=== PATIENT | male | born 1950 | race Caucasian/White ===

== ENCOUNTER 2018-07-06 05:20 | Day surgery (SDC) | payer MEDICARE, SELFPAY ==
[2018-05-08 12:50] VITALS: BMI 25.6
--- NOTE | 2018-07-02 08:57 | EKG12_ITS ---
Test Reason : PREOP Blood Pressure : / mmHG Vent. Rate : 060 BPM Atrial Rate : 060 BPM P-R Int : 248 ms QRS Dur : 076 ms QT Int : 432 ms P-R-T Axes : 074 -16 053 degrees QTc Int : 432 ms Sinus rhythm with marked sinus arrhythmia with 1st degree A-V block Otherwise normal ECG Confirmed by MEHDI BULLARD, YIMI ([id number]), editor farm journal ANDRES DOWNS ([id number]) on 07/06/2018 10:23:13 AM Referred By: Reese Lomas Confirmed By:YIMI HARDING MD
[2018-07-02 08:59] LABS: Hemoglobin 13.4 g/dl (13.0-16.5); Mean Corp Hgb Conc 31.2 g/gl (32-36); Mean Corpuscular Hgb 26.7 pg (27.0-32.0); Mean Corpuscular Volume 85.8 fL (80-94); Mean Platelet Vol. 9.6 fl (6.2-12.0); Platelet Count 244 K/mm3 (150-450); RBC Distribution Width CV 16.9 % (11.6-14.6); RBC Distribution Width SD 53.4 fl (35.1-43.9); Red Blood Count 5.01 M/mm3 (4.6-6.2); White Blood Count 8.3 K/mm3 (4.4-11.0)
[2018-07-02 09:00] LABS: Scan Indicated on CBC? Y/N NO
[2018-07-02 09:38] LABS: Anion Gap 7 (5-15); BUN 10 mg/dL (7-18); BUN/Creat Ratio 11.9 RATIO (10-20); Calcium,Total 9.2 mg/dL (8.5-10.1); Chloride 108 mmol/L (98-107); Creatinine, Serum 0.84 mg/dL (0.70-1.30); EST Glomerular Filtration Rate 96 mL/min (>60); Est Glom Filt Rate - Afr Amer 116 mL/min (>60); Glucose 114 mg/dL (74-106); Potassium 4.2 mmol/L (3.5-5.1); Sodium Level 142 mmol/L (136-145)
--- NOTE | 2018-07-06 | LES_PTH ---
PATIENT: ANGI [place]ACK[place] [facility] [id number] AGE/SX: 68/M ROOM: RE07/06/[address]: Dr. Reese Lomas MD : 1950 BED: DIS: 07/06/2018 SPEC #: [id number] RECD: 07/06/18 13:37 STATUS: GALA RERy #: [id number] ROEL: 07/06/18 00:[address]: Reese Lomas DEPT: SURGICAL PATHOLOGY RECD BY: Murphy Guerrero ENTERED: 07/06/18 13:37 SP TYPE: Lesion OTHR DR: Rosalie Scott, DIRECTOR OF CARDIOPULMONARY SERVICES-Carolann Tissues: Skin of head, NOS Procedures: Surgery Specimen Level IV HEADER OPERATION: Wide excision lesion scalp PRE-OP DIAGNOSIS: Squamous cell skin cancer TISSUE SUBMITTED: Longitudinal ellipse, suture on occipital positon MICROSCOPIC DIAGNOSIS Occipital lesion, wide excision: Inflamed squamous cell carcinoma in situ with verrucous features, completely excised (0.7 cm in greatest horizontal dimension). SJ:rg 07/07/18 COMMENT Please also make reference to previous specimen dated 04/22/18 from [facility], scalp/top of head lesion with diagnosis of squamous cell carcinoma, at least in situ with follicular involvement and verrucous features. Case has been reviewed in consultation with Dr. Chavez who concurs with the above diagnosis. IDC:AM MICROSCOPIC DESCRIPTION Slides are reviewed. GROSS DESCRIPTION Received in fixative is one container labeled with the patient's name and designated occipital lesion. The specimen consists of an ellipse of light danielson excised skin measuring 6 x 2 cm and a depth of excision measuring 0.1 cm. A suture is present along one tip. This tip and corresponding half is inked in black ink. The opposite half is inked in blue ink. The cutaneous surface contains a waxy, danielson lesion measuring 1.5 x 0.7 cm. The specimen is sectioned and totally submitted in six cassettes. Cassette 1 contains the tips, cassettes 2 & 3 contain the lesion and cassettes 4-6, the remainder of the specimen. / AM:aileen 07/06/18 TC:0 CPT: 78295
[2018-07-06 05:48] VITALS: BP 151/78; PULSE 61; RESP 16; TEMP 37.1; O2SAT 99; BMI 26.5
--- NOTE | 2018-07-06 06:25 | HP.PCM_ITS ---
Problem List (1) Squamous cell skin cancer Status: Acute History of Present Illness Date of Admission: 07/06/18 The patient is a 68 year old M who presents for excision of a biopsy-proven squamous cell carcinoma of the apical scalp. I saw him in the office on May 08, 2018. This procedure was scheduled by the patient at the [facility]. Been a long-term cigarette smoker. Is a chronic anxiety disorder. Also in alcohol dependency problem. He states that he has an irregular heartbeat and was on Xarelto for a period of time but then had excessive bleeding. He is managed with low-dose and aspirin. Has no particular complaints. We had recommended scheduling prior to this. Past Medical History Medical History: Medical History (Last Updated 05/08/18 @ 12:48 by Karen Young) Squamous cell skin cancer (Acute) C44.92 Anxiety and depression F41.9, F32.9 CVA (cerebral vascular accident) I63.9 GERD (gastroesophageal reflux disease) K21.9 Osteoarthritis M19.90 Sleep apnea G47.30 Squamous cell cancer of skin of crown C44.42 HTN (hypertension) I10 Allergies codeine Allergy (Verified 06/29/18 13:23) HEART RATE IRREGULAR rivaroxaban [From Xarelto] Adverse Reaction (Verified 07/06/18 05:48) Bleeding Home Medications: Ambulatory Orders Medication Instructions Recorded aspirin 81 mg tablet,delayed 81 mg PO BID 05/08/18 release baclofen 10 mg tablet 10 mg PO TID 05/08/18 gabapentin 100 mg capsule 100 mg PO DAILY 05/08/18 lisinopril 40 mg tablet 40 mg PO DAILY 05/08/18 magnesium oxide 400 mg capsule 400 mg PO QHS cap 05/08/18 meloxicam 7.5 mg tablet 7.5 mg PO DAILY 05/08/18 metoprolol succinate ER 100 mg 100 mg PO DAILY ea 05/08/18 capsule sprinkle, ext. release 24 hr montelukast 10 mg tablet 10 mg PO QPM 05/08/18 multivitamin,lb-tdch-gjshhubx 1 tab PO DAILY 05/08/18 tablet potassium chloride ER 10 mEq 10 meq PO DAILY 05/08/18 capsule,extended release pravastatin 20 mg tablet 20 mg PO QHS 05/08/18 Amlodipine [Norvasc] 5 mg PO DAILY 06/29/18 Ibuprofen 400 mg PO PRN PRN 06/29/18 Omeprazole [Prilosec] 20 mg PO DAILY 06/29/18 Tamsulosin HCl 0.4 mg PO BID 06/29/18 traZODone [Desyrel] 50 mg PO QHS 06/29/18 Surgical History: Surgical History (Last Updated 05/08/18 @ 12:48 by Karen Young) History of cholecystectomy Z90.49 History of colonoscopy Z98.890 History of total bilateral knee replacement Z96.653 Smoking Status: Current every day smoker Tobacco Use: Cigarettes Review of Systems Constitutional: Denies: Anorexia HEENT: Denies: Difficulty Swallowing Cardiovascular: Denies: Chest Pain Respiratory: Denies: Cough Gastrointestinal: Denies: Abdominal Pain Skin: Reports: - - Slowly enlarging apical scalp wound Neurological: Denies: Slurred speech Psychiatric: Reports: Anxiety Endocrine: Denies: Change in Body Habitus VTE Information - Inpt Only VTE Present on Admission: No - Physical Exam General: Alert, Oriented x3, Cooperative, No apparent distress HEENT: - - Exophytic scaly irregular scalp lesion now measuring approximately 1.4 cm in length Oral: Moist Mucosa Lungs: Clear to auscultation Cardiovascular: Regular rate, Regular Rhythm Abdomen: Bowel Sounds Present, Soft, Non Tender Extremities: No Calf Tenderness Lymphatic: No Cervical, Supraclavicular, or Inguinal Adenopathy Psych/Mental Status: Normal Affect Vital Signs Temp Pulse Resp BP Pulse Ox 98.7 F 61 16 151/78 H 99 07/06/18 05:48 07/06/18 05:48 07/06/18 05:48 07/06/18 05:48 07/06/18 05:48 Oxygen Delivery Method Room Air Weight: 195 lb 12.328 oz Body Mass Index (BMI) 26.5 Assessment/Plan All Active Problems (Last Updated 05/08/18 @ 12:48 by Karen Young) Squamous cell skin cancer (Acute) I previously recommended to the patient a generous elliptical excision of this area. He is aware of the technique, benefits, risks and alternatives. We will proceed with monitored anesthesia care. I believe that the patient's today has made this somewhat more challenging. We will attempt to get primary closure. Reese Lomas M.D., F.A.C.S.
--- NOTE | 2018-07-06 07:34 | DCINST_ITS ---
Discharge Diet: Light diet - advance as tolerated - if you have questions about your diet instructions, please talk to you doctor. Discharge Activity: May Not Drive - for 1 week or while taking narcotic pain medicine. May shower in (days): 3 Lifting Restrictions: 10 pounds Call your doctor if your incision/area has: Continuous Slow Oozing, Sudden Increased Bleeding, Increased Pain/ Swelling, Increased Redness, Foul Smelling Discharge Call your doctor if you observe: Fever of 101 or Higher Suture Line Care: Avoid Pulling/Pushing, Avoid Pinching/Bending Additional Dressing/Incision Instructions:: You may apply the antibiotic ointment like Polysporin or Neosporin once daily. You may utilize dry gauze dressing and tape to help protect the incision and change also once daily. Allergies/Adverse Reactions: Allergies codeine Allergy (Verified 06/29/18 13:23) HEART RATE IRREGULAR rivaroxaban [From Xarelto] Adverse Reaction (Verified 07/06/18 05:48) Bleeding Medications to take at Discharge aspirin 81 mg tablet,delayed release 81 mg PO BID 05/08/18 baclofen 10 mg tablet 10 mg PO TID 05/08/18 gabapentin 100 mg capsule 100 mg PO DAILY 05/08/18 lisinopril 40 mg tablet 40 mg PO DAILY 05/08/18 magnesium oxide 400 mg capsule 400 mg PO QHS cap 05/08/18 meloxicam 7.5 mg tablet 7.5 mg PO DAILY 05/08/18 metoprolol succinate ER 100 mg capsule sprinkle, ext. release 24 hr 100 mg PO DAILY ea 05/08/18 montelukast 10 mg tablet 10 mg PO QPM 05/08/18 multivitamin,gd-gnlr-pyjlabdl tablet 1 tab PO DAILY 05/08/18 potassium chloride ER 10 mEq capsule,extended release 10 meq PO DAILY 05/08/18 pravastatin 20 mg tablet 20 mg PO QHS 05/08/18 Amlodipine [Norvasc] 5 mg PO DAILY 06/29/18 Ibuprofen 400 mg PO PRN PRN 06/29/18 Omeprazole [Prilosec] 20 mg PO DAILY 06/29/18 Tamsulosin HCl 0.4 mg PO BID 06/29/18 traZODone [Desyrel] 50 mg PO QHS 06/29/18 Hydrocodone Bitart/Apap 5-325 [[place] 5MG-325MG] 1 tablet PO Q6H PRN PRN 3 Days #8 tablet 07/06/18 The following prescriptions were given: Hydrocodone Bitart/Apap 5-325 [[place] 5MG-325MG] 1 tablet PO Q6H PRN PRN 3 Days #8 tablet PRN Reason: Pain Primary Care Physician: Rosalie Scott, KOBI-C [Primary Care Provider] - Test Results: Test results from this visit will be discussed in further detail at your follow- up appointment, if applicable. Please Follow Up With: Reese Lomas MD - [phone] When: Call to make an appointment to be seen in about 8 days.
[2018-07-06] MEDS: Bupivacaine Mpf 0.5% 30 ML VIAL (07:51)
--- NOTE | 2018-07-06 08:28 | PCM.OPRPT ---
Problem List (1) Squamous cell skin cancer Status: Acute Report of Operation Date of Procedure: 07/06/18 Pre-Operative Diagnosis: Apical scalp squamous cell carcinoma Post-Operative Diagnosis: Same Surgery/Procedure Performed:: Wide elliptical excision apical scalp squamous cell carcinoma Description of Surgical Findings:: Timeout and informed consent was obtained. 68-year-old gentleman was taken to the operating room. He was placed prone on the table. Careful fascial padding was performed. He underwent monitored anesthesia care local anesthetic. His scalp was prepped with Betadine. 1% lidocaine mixed 50-50 with 0.5% Marcaine was used as a local anesthetic. Total 15 cc was used. Local was instilled. The lesion measured approximately 1 x 0.8 cm for the scaly exophytic part. There was some mild erythema extending circumferentially from there. A vertical longitudinal ellipse measuring 6.3 x 2 cm was created to completely excise this area. Sharp dissection was carried down to the galea. Flaps were raised using electrocautery and blunt dissection. A suture was placed in the occipital portion of the longitudinal ellipse. The wound was closed with interrupted 3-0 Vicryl subdermal stitches and simple and mattress sutures of 3-0 nylon. Telfa fluffs and tape dressings applied. Sponge and instrument and needle counts were reported the surgeon to be correct. Blood loss proximal 100 cc. He tolerated the procedure well and was taken to the recovery area in satisfactory condition without apparent complication. Final pathology is pending. Specimen includes skin lesion. No drains. Blood loss 100 cc. Reese Lomas M.D., F.A.C.S. Type of Anesthesia:: Local MAC Anesthesiologist: Romeo Villa
[2018-07-06 08:35] VITALS: BP 124/99; BP 151/78; PULSE 77; RESP 16; TEMP 36.4; O2SAT 96
[2018-07-06 08:40] VITALS: BP 136/79; BP 151/78; PULSE 70; RESP 16; O2SAT 96
[2018-07-06 08:45] VITALS: BP 121/95; BP 151/78; PULSE 75; RESP 16; O2SAT 97
[2018-07-06 08:50] VITALS: BP 134/94; BP 151/78; PULSE 70; RESP 16; TEMP 36.6; O2SAT 95
[2018-07-06 10:06] VITALS: BP 124/92; BP 151/78; PULSE 72; RESP 16; TEMP 36.9; O2SAT 94
== END 2018-07-06 10:09 | disposition home or self-care (01) ==
LOC: SDC 05:21 → AC 05:22
PROVIDERS: Family Provider Nurse Practitioner Family; PCP Nurse Practitioner Family; Referring Provider Surgery; Visit Provider Surgery
PROC: (CPT 11622; principal; 2018-07-06 07:05)
DX: C44.42 Squamous cell carcinoma of skin of scalp and neck (principal); K21.9 Gastro-esophageal reflux disease without esophagitis; E78.00 Pure hypercholesterolemia, unspecified; I49.9 Cardiac arrhythmia, unspecified; I10 Essential (primary) hypertension; F32.9 Major depressive disorder, single episode, unspecified; F41.9 Anxiety disorder, unspecified; M19.90 Unspecified osteoarthritis, unspecified site; F10.20 Alcohol dependence, uncomplicated; F17.210 Nicotine dependence, cigarettes, uncomplicated; Z79.82 Long term (current) use of aspirin; Z79.899 Other long term (current) drug therapy; Z86.73 Personal history of transient ischemic attack (TIA), and cerebral infarction without residual deficits
CPT/HCPCS: 00300; 11622; 36415; 80048; 85027; 88305; 93005; J7120

== ENCOUNTER 2020-03-29 05:49 | Inpatient (IN) | payer MEDICARE, SELFPAY ==
--- NOTE | 2020-03-20 10:58 | EKG12_ITS ---
Test Reason : PRE OP Blood Pressure : / mmHG Vent. Rate : 054 BPM Atrial Rate : 326 BPM P-R Int : 000 ms QRS Dur : 084 ms QT Int : 460 ms P-R-T Axes : 000 -47 073 degrees QTc Int : 436 ms Atrial fibrillation Left axis deviation Abnormal ECG Confirmed by MEHDI BULLARD, YIMI ([id number]), newspaper copy editor EULALIA JACOME ([id number]) on 03/21/2020 10:18:43 AM Referred By: Bo Dixon Confirmed By:YIMI HARDING MD
[2020-03-20 11:47] LABS: Hemoglobin 13.8 g/dL (13.0-16.5); Mean Corp Hgb Conc 31.4 g/dL (32-36); Mean Corpuscular Hgb 28.8 pg (27.0-32.0); Mean Corpuscular Volume 91.7 fL (80-94); Mean Platelet Vol. 9.4 fl (6.2-12.0); Platelet Count 254 K/mm3 (150-450); RBC Distribution Width CV 16.6 % (11.6-14.6); RBC Distribution Width SD 56.3 fl (35.1-43.9); White Blood Count 7.9 K/mm3 (4.4-11.0)
[2020-03-20 11:53] LABS: International Normalized Ratio 1.1; Prothrombin Time (Protime)PT. 13.2 SECONDS (11.7-14.9)
[2020-03-20 11:54] LABS: Partial Thromboplast Time 28.1 Seconds (24.1-36.2)
[2020-03-20 12:07] LABS: AST(SGOT) 19 U/L (15-37); Alanine Aminotransfer ALT/SGPT 24 U/L (16-61); Albumin, Serum 3.3 g/dL (3.2-5.0); Alkaline Phosphatase 107 U/L (45-117); Anion Gap 7 (5-15); BUN 11 mg/dL (7-18); BUN/Creat Ratio 14.7 RATIO (10-20); Bilirubin, Direct 0.26 mg/dL (0.00-0.30); Chloride 106 mmol/L (98-107); Creatinine, Serum 0.75 mg/dL (0.70-1.30); EST Glomerular Filtration Rate 110 mL/min (>60); Est Glom Filt Rate - Afr Amer 133 mL/min (>60); Globulin 3.9 g/dL (2.2-4.2); Glucose 92 mg/dL (74-106); Potassium 3.8 mmol/L (3.5-5.1); Protein, Total 7.2 g/dL (6.4-8.2); Sodium Level 141 mmol/L (136-145)
[2020-03-29] VITALS (14 sets, daily range): BP systolic 109–159; BP diastolic 69–100; PULSE 55–98; RESP 16; TEMP 36.4–37.1; O2SAT 92–99; BMI 25.0; BMI 25.7
[2020-03-29] MEDS: Lactated Ringers 1,000 ML 100 ML IV ×4 (06:37→18:16)
--- NOTE | 2020-03-29 07:14 | EKG12_ITS ---
Test Reason : Blood Pressure : / mmHG Vent. Rate : 060 BPM Atrial Rate : 312 BPM P-R Int : 000 ms QRS Dur : 082 ms QT Int : 438 ms P-R-T Axes : 000 -37 040 degrees QTc Int : 438 ms Atrial fibrillation Left axis deviation Poor R- wave progression Abnormal ECG Confirmed by CHARLIE BULLARD, RADHA ([id number]), telehealth nurse educator ADAN CARLSON ([id number]) on 03/30/2020 11:06:16 AM Referred By: Bo Dixon Confirmed By:RADHA GUERRA MD
--- NOTE | 2020-03-29 07:30 | TISS_PTH ---
PATIENT: ANGI JACKSON LOC: [facility] U#:[id number] AGE/SX: 70/M ROOM: [facility] RE03/29/[address]: Dr. Bo Dixon MD : 1950 BED: 1 DIS: 03/30/2020 SPEC #: [id number] RECD: 03/30/20 07:34 STATUS: GALA CHARI #: [id number] ROEL: 03/29/20 07:[address]: Bo Dixon DEPT: SURGICAL PATHOLOGY RECD BY: Sowmya Rausch ENTERED: 03/30/20 09:02 SP TYPE: Tissue Bx RIC DR: PRAKASH Schrader Tissues: TISSUE SURGICALLY REMOVED Procedures: Surgery Specimen Level IV HEADER OPERATION: Lap robotic bladder diverticulectomy PRE-OP DIAGNOSIS: Bladder diverticulum TISSUE SUBMITTED: Bladder diverticulum MICROSCOPIC DIAGNOSIS Bladder diverticulum, diverticulectomy: Consistent with bladder diverticulum with focal ulceration, acute and chronic inflammation and reactive epithelial changes. ORLIN:aileen 03/31/20 MICROSCOPIC DESCRIPTION Slides are reviewed. GROSS DESCRIPTION Received in fixative is one container labeled with the patient's name and designated bladder diverticulum. The specimen consists of an irregular fragment of danielson mucosa with attached submucosal tissue and fat measuring 10 x 4 x 2 cm. No mucosal mass lesions are identified. Construction Management Assistant sections are submitted in three cassettes. / AM:aileen 03/30/20 TC:5 CPT: 16457
--- NOTE | 2020-03-29 09:04 | CON.PCM_ITS ---
Reason for Consult Date of Consultation: 03/29/20 Reason for Consultation: Preop cardiac evaluation. History of Present Illness: The patient is a 70 year old M with no previous cardiac history with a history of bladder diverticulum who presented downstairs for laparoscopic bladder dontae michelle. They had an EKG done this morning and he was noted to be in atrial fibrillation with a slow ventricular response rate. Patient appears to have a known hypertensive. Has been on an hypertensive medication. He has had no shortness of breath no paroxysmal nocturnal dyspnea or pedal edema. He has had occasional chest discomfort which does not appear to be exertionally related. He has had no other cardiac symptomatology. Cardiology was called to see him because he had atrial fibrillation. [] Past Medical History Allergies/Adverse Reactions: Allergies codeine Allergy (Verified 03/20/20 08:19) HEART RATE IRREGULAR rivaroxaban [From Xarelto] Adverse Reaction (Verified 03/20/20 08:19) Bleeding Home Medications: Ambulatory Orders Medication Instructions Recorded aspirin 81 mg tablet,delayed 81 mg PO DAILY 05/08/18 release baclofen 10 mg tablet 10 mg PO .QAM 05/08/18 gabapentin 100 mg capsule 300 mg PO BID 05/08/18 lisinopril 40 mg tablet 40 mg PO DAILY 05/08/18 magnesium oxide 400 mg PO QHS cap 05/08/18 meloxicam 7.5 mg tablet 7.5 mg PO DAILY 05/08/18 metoprolol succinate 100 mg 100 mg PO BID ea 05/08/18 capsule sprinkle, ext. release 24 hr montelukast 10 mg tablet 10 mg PO QPM 05/08/18 multivitamin,rv-bcdf-ektuzuap 1 tab PO DAILY 05/08/18 potassium chloride 10 mEq 10 meq PO DAILY 05/08/18 capsule,extended release pravastatin 20 mg tablet 20 mg PO QHS 05/08/18 Amlodipine [Norvasc] 5 mg PO DAILY 06/29/18 Ibuprofen 400 mg PO PRN PRN 06/29/18 Omeprazole [Prilosec] 20 mg PO DAILY 06/29/18 Tamsulosin HCl 0.4 mg PO BID 06/29/18 traZODone [Desyrel] 100 mg PO QHS 06/29/18 Baclofen 20 mg PO QHS 02/29/20 Duloxetine HCl 30 mg PO DAILY 02/29/20 Finasteride [Proscar] 5 mg PO DAILY 02/29/20 Smoking Status: Current every day smoker Tobacco Use: Cigarettes Alcohol: None Drugs: None Review of Systems - Review of Systems General: Denies: Fever, Night Sweats, Fatigue HEENT: Denies: Vision Change Cardiovascular: Reports: Chest Tightness. Denies: Chest Discomfort, Shortness of Breath, Orthopnea, PND, Peripheral Edema, Palpitations, Lightheadedness, Dizziness, Near Syncope, Syncope Respiratory: Denies: Cough, Sputum Production, Hemoptysis Gastrointestinal: Denies: Hematemesis, Hematochezia, Melena Genitourinary: Denies: Dysuria, Hematuria Muscoloskeletal: Denies: Myalgias Skin: Denies: Rash Neurological: Denies: Dizziness Psychiatric: Denies: Anxiety Endocrine: Denies: Unexplained Weight Loss Subjectve: Pleasant gentleman in no distress at this time Objective: Vital Signs Temp Pulse Resp BP Pulse Ox 98.4 F 55 L 16 115/79 97 03/29/20 06:24 03/29/20 06:24 03/29/20 06:24 03/29/20 06:24 03/29/20 06:24 Oxygen Delivery Method Room Air Weight: 182 lb 1.629 oz Body Mass Index (BMI) 25.0 General: Awake, Alert, Oriented x 3 HEENT: PERRL, EOMI, Sclera Non Icteric Neck: Supple, Good ROM, No Lymph Node Enlargement Lungs: Clear to auscultation Cardiovascular: Irregular Rhythm, Normal S1, Normal S2, No Murmurs, No Rubs, No Gallops Vascular: No Carotid Bruits, Normal Femoral Pulses, Normal Radial Pulses, Normal Dorsalis Pedal Pulse, Normal Posterior Tibial Pulses Abdomen: Bowel Sounds Present, Soft, Non Tender, No HSM, No Organomegaly Extremities: No Cyanosis, No Clubbing, No edema Musculoskeletal: No Erythema Skin: No Rashes Neurological: No Focal Motor or Sensory Deficit Rhythm: EKG: Atrial fibrillation with a controlled ventricular response rate of 66 bpm ECHO: Stress Test: Cardiac Cath: PCI: CT Surgery: Holter monitor: EPS: PPM: CXR: Chest CT Scan: Assessment/Plan 1. Atrial fibrillation * The duration is unclear at this particular time. He has not been anticoagulated. It appears that his risk may be secondary to the hypotension. At this particular time his rate is controlled because he is on a high dose of the beta-zuly. * I would recommend that we obtain an echocardiogram this morning to assess his left ventricular function. * I do not think that this should be a contraindication to him undergoing the above intended surgery which is laparoscopic with the bladder. * I have discussed this extensively with anesthesiologist and they understand and agree to proceed. His EKG is not with any significant abnormalities. * 2. Hypertension * His blood pressure appears to be under good control at this particular time and I would not recommend that we make any changes. * * Thank you for allowing me to participate in the care of your patient. Please don't hesitate to call if any issues arise.
--- NOTE | 2020-03-29 09:16 | ECHOCS_ITS ---
Reason For Study: New Afib Procedure This was a 2D Doppler, Color Flow transthoracic echocardiogram. The study was technically difficult. Contrast injection was performed. Exam performed in OR. Left Ventricle Normal LV size. Left ventricular systolic function is normal. The estimated ejection fraction is 60 %. No regional wall motion abnormalities noted. Right Ventricle Normal RV size. Normal systolic function. Atria Normal left atrium. Normal right atrium. Mitral Valve Normal mitral valve. Tricuspid Valve Normal tricuspid valve. Mild (1+) tricuspid valve insufficiency. Pulmonary artery systolic pressure is 36 mmHg. Aortic Valve The aortic valve is not well visualized. Pulmonic Valve The pulmonic valve is not well visualized. Great Vessels Normal aortic root. The pulmonary artery is normal size. Pericardium/Pleural No pericardial effusion. Medication Diluted definity 3ml given slow IV push to enhance endocardial definition. MMode/2D Measurements & Calculations LVIDd: 5.0 cm IVSd: 1.5 cm LA dimension: 3.9 cm LVIDs: 2.8 cm LVPWd: 1.3 cm FS: 44.4 % LAV(MOD-bp): 75.3 ml LA A4 area: 23.3 cm2 RA A4 area: 19.5 cm2 LAV(MOD-bp) Indexed: 37.2 ml/m2 LAV(MOD-sp2): 71.6 ml LAV(MOD-sp4): 79.6 ml Time Measurements MV dec time: 0.22 sec Doppler Measurements & Calculations MV E max raj: 103.6 cm/sec MV P1/2t max raj: 96.7 cm/sec Ao V2 max: 124.2 cm/sec MV A max raj: 48.2 cm/sec MV P1/2t: 66.4 msec Ao max P.2 mmHg MV E/A: 2.1 MV dec slope: 426.9 cm/sec2 MVA(P1/2t): 3.3 cm2 LV V1 max: 98.3 cm/sec PA V2 max: 87.6 cm/sec TR max raj: 286.5 cm/sec LV V1 max P.9 mmHg TR max P.8 mmHg Interpretation Summary Normal LV size. Left ventricular systolic function is normal. The estimated ejection fraction is 60 %. Pulmonary artery systolic pressure is 36 mmHg. Contrast injection was performed. Ordering Physician: Fco Aguilera Referring Physician: Rosalie Scott Performed By: Keo Red RCS
--- NOTE | 2020-03-29 11:50 | PCM.HP.STD ---
Problem List (1) Bladder diverticulum Status: Acute History of Present Illness Date of Admission: 03/29/20 Chief Complaint: Large bladder diverticulum The patient is a 70 year old male who has a very large bladder diverticulum have difficulty emptying frequent urination very minimal obstruction on cystoscopy but is found to have a large bladder diverticulum we can proceed with laparoscopic excision of a bladder diverticulum. Past Medical History Medical History: Medical History (Last Reviewed 07/14/18 @ 14:24 by Karen Young) Squamous cell skin cancer (Acute) C44.92 Anxiety and depression F41.9, F32.9 CVA (cerebral vascular accident) I63.9 GERD (gastroesophageal reflux disease) K21.9 Osteoarthritis M19.90 Sleep apnea G47.30 Squamous cell cancer of skin of crown C44.42 HTN (hypertension) I10 Allergies codeine Allergy (Verified 03/20/20 08:19) HEART RATE IRREGULAR rivaroxaban [From Xarelto] Adverse Reaction (Verified 03/20/20 08:19) Bleeding Home Medications: Ambulatory Orders Medication Instructions Recorded aspirin 81 mg tablet,delayed 81 mg PO DAILY 05/08/18 release baclofen 10 mg tablet 10 mg PO .QAM 05/08/18 gabapentin 100 mg capsule 300 mg PO BID 05/08/18 lisinopril 40 mg tablet 40 mg PO DAILY 05/08/18 magnesium oxide 400 mg PO QHS cap 05/08/18 meloxicam 7.5 mg tablet 7.5 mg PO DAILY 05/08/18 metoprolol succinate 100 mg 100 mg PO BID ea 05/08/18 capsule sprinkle, ext. release 24 hr montelukast 10 mg tablet 10 mg PO QPM 05/08/18 multivitamin,xv-flnn-zypppbnd 1 tab PO DAILY 05/08/18 potassium chloride 10 mEq 10 meq PO DAILY 05/08/18 capsule,extended release pravastatin 20 mg tablet 20 mg PO QHS 05/08/18 Amlodipine [Norvasc] 5 mg PO DAILY 06/29/18 Ibuprofen 400 mg PO PRN PRN 06/29/18 Omeprazole [Prilosec] 20 mg PO DAILY 06/29/18 Tamsulosin HCl 0.4 mg PO BID 06/29/18 traZODone [Desyrel] 100 mg PO QHS 06/29/18 Baclofen 20 mg PO QHS 02/29/20 Duloxetine HCl 30 mg PO DAILY 02/29/20 Finasteride [Proscar] 5 mg PO DAILY 02/29/20 Surgical History: Surgical History (Last Reviewed 07/14/18 @ 14:24 by Karen Young) History of cholecystectomy Z90.49 History of colonoscopy Z98.890 History of total bilateral knee replacement Z96.653 Surgical History: no surgical history Smoking Status: Current every day smoker Tobacco Use: Cigarettes Alcohol: None Drugs: None Review of Systems Constitutional: Denies: Chills, Fever, Weight Change HEENT: Denies: Head Aches, Sinus Congestion, Sinus Drainage Cardiovascular: Denies: Chest Pain, Palpitations Respiratory: Denies: Cough, Shortness of breath at rest, Sputum production Gastrointestinal: Denies: Abdominal Pain, Nausea, Vomiting Genitourinary: Denies: Dysuria Musculoskeletal: Denies: Joint Pain, Joint Tenderness Skin: Denies: Rash, Wounds Neurological: Denies: Numbness, Tingling, Focal weakness Psychiatric: Denies: Anxiety, Depression, Homicidal Ideations, Suicidal Ideations Hematologic/ Lymphatic: Denies: Easy Bruising, Easy Bleeding VTE Information - Inpt Only VTE Present on Admission: No - Physical Exam Vitals/I&O's: Vital Signs Temp Pulse Resp BP Pulse Ox 98.4 F 55 L 16 115/79 97 03/29/20 06:24 03/29/20 06:24 03/29/20 06:24 03/29/20 06:24 03/29/20 06:24 Oxygen Delivery Method Room Air Weight: 82.6 kg Body Mass Index (BMI) 25.0 General: Alert, Oriented x3, Cooperative HEENT: Atraumatic, PERRLA, EOMI, Normocephalic Neck: Supple, No JVD, Negative Carotid Bruits Lungs: Clear to auscultation, Normal air movement Cardiovascular: Regular rate, No murmurs Abdomen: Bowel Sounds Present, Soft, Non Tender Extremities: No edema, Capillary Refill Less than 3 Seconds Skin: No rashes, No breakdown Musculoskeletal: No Tenderness to Palpation of Joints or Extremities Neurological: Cranial nerves II-XII grossly intact Psych/Mental Status: Normal Affect, Appropriate Current Medications Lactated Ringer's () 1,000 mls @ 100 mls/hr IV .Q10H J CARLOS Last Admin: 03/29/20 06:37 Dose: 100 mls/hr Documented by: Lactated Ringer's () 1,000 mls @ 100 mls/hr IV .Q10H J CARLOS Last Admin: 03/29/20 06:38 Dose: 100 mls/hr Documented by: Assessment/Plan All Active Problems (Last Reviewed 07/14/18 @ 14:24 by Karen Young) Bladder diverticulum (Acute) Squamous cell skin cancer (Acute) Late this morning plan to proceed with laparoscopic excision of bladder diverticulum. Today he also was seen by cardiology clearance
--- NOTE | 2020-03-29 12:56 | DCINST_ITS ---
Discharge Diet: Light diet - advance as tolerated, Soft diet Discharge Activity: May not drive while taking narcotic pain medications. Call your doctor if your incision/area has: Continuous Slow Oozing, Sudden Increased Bleeding, Increased Pain/ Swelling, Increased Redness, Foul Smelling Discharge, Swelling at the incision site Call your doctor if you observe: Fever of 101 or Higher Suture Line Care: Avoid Pulling/Pushing, Avoid Pinching/Bending Catheter: Bentley to leg bag, Bentley to large bag Drain: [place] Allergies/Adverse Reactions: Allergies codeine Allergy (Verified 03/20/20 08:19) HEART RATE IRREGULAR rivaroxaban [From Xarelto] Adverse Reaction (Verified 03/20/20 08:19) Bleeding Medications to take at Discharge aspirin 81 mg tablet,delayed release 81 mg PO DAILY 05/08/18 baclofen 10 mg tablet 10 mg PO .QAM 05/08/18 gabapentin 100 mg capsule 300 mg PO BID 05/08/18 lisinopril 40 mg tablet 40 mg PO DAILY 05/08/18 magnesium oxide 400 mg PO QHS cap 05/08/18 meloxicam 7.5 mg tablet 7.5 mg PO DAILY 05/08/18 metoprolol succinate 100 mg capsule sprinkle, ext. release 24 hr 100 mg PO BID ea 05/08/18 montelukast 10 mg tablet 10 mg PO QPM 05/08/18 multivitamin,ay-jhbf-jflmrdpl 1 tab PO DAILY 05/08/18 potassium chloride 10 mEq capsule,extended release 10 meq PO DAILY 05/08/18 pravastatin 20 mg tablet 20 mg PO QHS 05/08/18 Amlodipine [Norvasc] 5 mg PO DAILY 06/29/18 Ibuprofen 400 mg PO PRN PRN 06/29/18 Omeprazole [Prilosec] 20 mg PO DAILY 06/29/18 Tamsulosin HCl 0.4 mg PO BID 06/29/18 traZODone [Desyrel] 100 mg PO QHS 06/29/18 Baclofen 20 mg PO QHS 02/29/20 Duloxetine HCl 30 mg PO DAILY 02/29/20 Finasteride [Proscar] 5 mg PO DAILY 02/29/20 Ciprofloxacin [Cipro] 500 mg PO BID #14 tab 03/29/20 Hydrocodone/Acetaminophen [Par[place]ise 5-325 Tablet] 1 ea PO Q4H PRN PRN 7 Days #20 tab 03/29/20 The following prescriptions were given: Ciprofloxacin [Cipro] 500 mg PO BID #14 tab Transmission Status: Received by [address] Hydrocodone/Acetaminophen [[place]ise 5-325 Tablet] 1 ea PO Q4H PRN PRN 7 Days #20 tab PRN Reason: Pain 1-10 Or Fever Transmission Status: Received by [address] Primary Care Physician: Rosalie Scott BOBBIN DOFFER, BOBBIN DOFFER-C [Primary Care Provider] - Test Results: Test results from this visit will be discussed in further detail at your follow- up appointment, if applicable. Please Follow Up With: Bo Dixon MD - [phone] When: please call to make an appointment.- 10 days Proposed Discharge Date: 03/30/20
[2020-03-29] MEDS: Cefazolin 2 GM in 0.9% Normal Saline 100 ML IV (13:01)
[2020-03-29] MEDS: Bupivacaine Mpf 0.5% 30 ML VIAL (13:25)
--- NOTE | 2020-03-29 14:31 | OP.PCM_ITS ---
Problem List (1) Bladder diverticulum Status: Acute Report of Operation Date of Procedure: 03/29/20 Pre-Operative Diagnosis: Large bladder diverticulum Post-Operative Diagnosis: The same Surgery/Procedure Performed:: Laparoscopic robotic assisted excision of bladder diverticulum Description of Surgical Findings:: 70-year-old male was found to have a mildly enlarged prostate is on medical therapy with Flomax and Proscar no significant obstruction seen on cystoscopy but he is found to have a large bladder diverticulum in the back of the bladder I think this is preventing from proper emptying he is having double voiding also has been having infections so because of this working to proceed with laparoscopic removal of his bladder diverticulum certainly in the future if necessary could always work on the prostate with a TURP etc. but for now is proceed with a removal of his bladder diverticulum 70-year-old male was taken back to the operating room after smooth induction of general anesthesia he was placed supine on the table the penis and testicles were prepped and draped in usual sterile fashion. Made an incision below the umbilicus. Advanced the Veress needle into the peritoneal cavity inflated the peritoneal cavity with CO2 gas. I then placed the camera trocar right arm trocar left arm trocar and a suction trocar. Started out the dissection in the midline of the bladder. Bentley catheter was placed into the bladder and we filled the bladder up he could see the diverticulum expanding right in front of us. The diverticulum was in the posterior aspect of the bladder. I then bivalved the diverticulum. And by doing this I found the extent of the diverticulum to the bladder until I found the diverticular neck and then I dissected the diverticulum off the bladder. After excising the bladder reticulum off the bladder I followed the edges of diverticulum all the way to the diverticular neck and then excised across the diverticulum to remove the diverticulum. We then used the Endo Catch bag through the robotic port to place the diverticulum into the robotic port. I then transferred the first suture through the robotic port and then sutured the diverticular closed with 3-0 Vicryl. We then transferred the 2-0 Vicryl through the robotic port and sutured the second layer also closing the peritoneum over the bladder. After this was accomplished and removed both the sutures through the robotic port. The robot was then undocked we did fill the bladder up with saline with 150 cc of saline and there was no leakage from the closure. There was no significant bleeding from the catheter urine was fairly clear. We then had to open up the umbilicus and we extracted the diverticulum in the in the Endo Catch bag through the umbilicus and then we closed the umbilicus with 0 Vicryl suture [id number] fashion. I then removed the diverticulum through the umbilicus and then the skin skin sutures were closed with subcuticular 4-0 Monocryl patient's a nesthetic was reversed catheter was left in place taken back to PACU in good condition. Type of Anesthesia:: General - Admit VTE Documentation VTE Present on Admission: No VTE Mechan Device Prophylaxis: SCD's
[2020-03-29] MEDS: Morphine 2 MG/ML Syringe IV ×2 (18:16→20:49)
[2020-03-29] MEDS: Docusate Sodium 100 MG Capsule PO (20:51)
[2020-03-29] MEDS: Magnesium Chloride 64 MG Delay Rel.Tablet 128 MG PO (20:51)
[2020-03-29] MEDS: Montelukast 10 MG Tablet PO (20:51)
[2020-03-29] MEDS: traZODone 50 MG Tablet 100 MG PO (20:51)
[2020-03-29] MEDS: Gabapentin 300 MG Capsule PO (20:51)
[2020-03-29] MEDS: Baclofen 10 MG Tablet 20 MG PO (20:52)
[2020-03-29] MEDS: Tamsulosin HCl 0.4 MG Capsule PO (20:52)
[2020-03-29] MEDS: Pravastatin 20 MG Tablet PO (20:53)
[2020-03-29] MEDS: Metoprolol(XL)Succ 100 MG Tablet PO (20:53)
[2020-03-30] MEDS: Acetaminophen 325 MG Tablet PO (00:20)
[2020-03-30] MEDS: oxyCODONE 5 MG Tablet PO (00:20)
[2020-03-30] MEDS: Lactated Ringers 1,000 ML 100 ML IV (03:33)
[2020-03-30] MEDS: Ibuprofen 600 MG Tablet PO (03:41)
[2020-03-30 03:44] VITALS: BP 146/79; PULSE 74; RESP 16; TEMP 36.7; O2SAT 97
[2020-03-30] MEDS: Morphine 2 MG/ML Syringe IV ×3 (04:31→08:41)
[2020-03-30] MEDS: DULoxetine Hcl 30 MG Capsule PO (07:47)
[2020-03-30] MEDS: Docusate Sodium 100 MG Capsule PO (07:47)
[2020-03-30] MEDS: Finasteride 5 MG Tablet PO (07:48)
[2020-03-30] MEDS: Gabapentin 300 MG Capsule PO (07:48)
[2020-03-30] MEDS: amLODIPine 5 MG Tablet PO (07:48)
[2020-03-30] MEDS: Meloxicam 7.5 MG Tablet PO (07:48)
[2020-03-30] MEDS: Baclofen 10 MG Tablet PO (07:48)
[2020-03-30] MEDS: Tamsulosin HCl 0.4 MG Capsule PO (07:48)
[2020-03-30 07:49] VITALS: PULSE 80
[2020-03-30] MEDS: Metoprolol(XL)Succ 100 MG Tablet PO (07:49)
[2020-03-30] MEDS: Pantoprazole Sodium 20 MG Tablet PO (07:49)
[2020-03-30] MEDS: Lisinopril 40 MG Tablet PO (07:49)
[2020-03-30 07:55] VITALS: BP 139/83; PULSE 74; RESP 16; TEMP 36.8; O2SAT 97
[2020-03-30] MEDS: 0.9% Saline Lock 10 ML Syringe IV (08:41)
--- NOTE | 2020-03-30 11:10 | CASEMGMT ---
DANIELE ZIEGLER attempted to complete Face to Face assessment at this time. Patient was discharged prior to assessment being completed. Patient to follow-up with urology in 1 week.
== END 2020-03-30 11:00 | disposition home or self-care (01) | DRG 655 ==
LOC: ACINP 05:49 → MS3 13:05
PROVIDERS: Anesthesiology; Admitting Provider Urology; PCP Nurse Practitioner Family; Referring Provider Urology; Visit Provider Urology
PROC: 0VT04ZZ Resection of Prostate, Percutaneous Endoscopic Approach (ICD-10-PCS; CPT 55866; principal; 2020-03-29 07:10)
DX: N32.3 Diverticulum of bladder (principal); R07.89 Other chest pain; F17.210 Nicotine dependence, cigarettes, uncomplicated; Z20.828 Contact with and (suspected) exposure to other viral communicable diseases; I48.91 Unspecified atrial fibrillation; Z79.899 Other long term (current) drug therapy; Z79.82 Long term (current) use of aspirin; F41.9 Anxiety disorder, unspecified; I10 Essential (primary) hypertension; K21.9 Gastro-esophageal reflux disease without esophagitis; G47.30 Sleep apnea, unspecified; F32.9 Major depressive disorder, single episode, unspecified
CPT/HCPCS: 36415; 80048; 80076; 85027; 85610; 85730; 87635; 88305; 93005; 93306; 99406; C9803; J7120; Q9957; A4216; C8929; J2405; U0003

== ENCOUNTER → 2020-06-12 06:21 | Outpatient (CLI) | payer MEDICARE, SELFPAY ==
[2020-06-02 08:10] VITALS: BMI 26.5
--- NOTE | 2020-06-12 09:14 | STRESSREP_ITS ---
Stress Test Report Pharmacologic myocardial perfusion stress test. 70-year-old man with a history of persistent atrial fibrillation. Stress protocol: Resting EKG demonstrates atrial fibrillation with a controlled ventricular response rate of 51 bpm resting blood pressure is 120/80 mmHg occasional premature ventricular complexes noted. 0.4 mg of regadenoson was infused per usual protocol followed by rapid intravenous saline flush injection continuous EKG monitoring was performed. The maximum heart rate attained was 67 bpm which was 44% of maximum predicted heart rate the maximum workload was 1 metabolic equivalent. The patient maintained atrial fibrillation throughout the recording. Nonspecific ST-T wave changes were noted. The resting blood p ressure was 120/80 mmHg with a final blood pressure 102/70 mmHg. Myocardial perfusion protocol. 11.2 mCi of technetium 99m sestamibi was injected at rest. 0.4 mg of regadenoson was infused per usual protocol. At peak infusion 33.9 mCi of technetium 99m sestamibi was injected stress images were obtained stress and rest images were reconstructed and compared in the short axis vertical long horizontal long axis. Gated images were also obtained. Perfusion SPECT analysis: Review of the stress images demonstrate normal uptake of tracer noted in all areas of the myocardium except for the inferior apical wall with reduced perfusion. There is improvement in perfusion on the resting images suggesting inferoapical ischemia. The rest of the sears appear to be normally perfused. Gated SPECT analysis: The gated ejection fraction is noted to be 70%. Conclusion: Pharmacologic myocardial perfusion stress test with evidence of inferoapical ischemia. Preserved ejection fraction.
== END ==
LOC: CVS 06:24
PROVIDERS: PCP Nurse Practitioner Family; Referring Provider Internal Medicine Cardiovascular Disease; Visit Provider Internal Medicine Cardiovascular Disease
DX: I48.11 Longstanding persistent atrial fibrillation (principal); R06.00 Dyspnea, unspecified
CPT/HCPCS: 78452; 93017; 93225; 93226; A9500; A4216; J2785

== ENCOUNTER 2020-06-20 07:02 | Day surgery (SDC) | payer MEDICARE, SELFPAY ==
[2020-06-02 08:10] VITALS: BMI 26.5
[2020-06-19 08:57] VITALS: BMI 26.5
--- NOTE | 2020-06-20 06:32 | HP_ITS ---
HPI HPI History of Present Illness Details: [place] 70-year-old man who was seen by me when he had laparoscopic bladder surgery and was noted to have atrial fibrillation with a slow ventricular response rate. He does have a history of known hypertension. We did make adjustments to his medications at that time and he had an echocardiogram performed which demonstrated preserved ejection fraction of 60% and normal biatrial sizes. He has done well since then denying any chest pain or shortness of breath or paroxysmal nocturnal dyspnea or pedal edema he has had no neck arm or jaw discomfort to suggest angina. Is been compliant with his medications. He is asymptomatic as far as the atrial fibrillation is concerned. You do remember that he has had a previous history of a transient ischemic attack as well as a history of hypertension. His physical exam here demonstrates clear lung vaca irregular rate and rhythm and no pedal edema. Intake Vital Signs 06/02/20 Height 5 ft 11.5 in 06/02/20 Weight: 193 lb 06/02/20 BMI 26.5 06/02/20 BP 130/72 H 06/02/20 Respiration 16 06/02/20 Pulse 60 06/02/20 Pulse Oximetry (%) 98 Intake Visit Reasons: d/c MS3 03/29 (NEW to [facility]) Allergies codeine Allergy (Verified 06/02/20 08:10) HEART RATE IRREGULAR rivaroxaban [From Xarelto] Adverse Reaction (Verified 06/02/20 08:10) Bleeding Medications baclofen 10 mg tablet 10 mg PO .QAM 05/08/18 [History Confirmed 06/02/20] lisinopril 40 mg tablet 40 mg PO DAILY 05/08/18 [History Confirmed 06/02/20] magnesium oxide 400 mg PO QHS cap 05/08/18 [History Confirmed 06/02/20] meloxicam 7.5 mg tablet 7.5 mg PO DAILY 05/08/18 [History Confirmed 06/02/20] metoprolol succinate 100 mg capsule sprinkle, ext. release 24 hr 100 mg PO BID ea 05/08/18 [History Confirmed 06/02/20] montelukast 10 mg tablet 10 mg PO QPM 05/08/18 [History Confirmed 06/02/20] multivitamin,wq-gnuc-odbqdycb 1 tab PO DAILY 05/08/18 [History Confirmed 06/02/20] pravastatin 20 mg tablet 20 mg PO QHS 05/08/18 [History Confirmed 06/02/20] Amlodipine [Norvasc] 5 mg PO DAILY 06/29/18 [History Confirmed 06/02/20] Ibuprofen 400 mg PO PRN PRN 06/29/18 [History Confirmed 06/02/20] Omeprazole [Prilosec] 20 mg PO DAILY 06/29/18 [History Confirmed 06/02/20] Baclofen 20 mg PO QHS 02/29/20 [History Confirmed 06/02/20] Duloxetine HCl 30 mg PO DAILY 02/29/20 [History Confirmed 06/02/20] Finasteride [Proscar] 5 mg PO DAILY 02/29/20 [History Confirmed 06/02/20] apixaban 5 mg tablet 5 mg PO BID #60 tab 06/02/20 [Rx Confirmed 06/02/20] gabapentin 100 mg capsule 100 mg PO BID cap 06/02/20 [History Confirmed 06/02/20] tamsulosin 0.4 mg capsule 0.4 mg PO DAILY cap 06/02/20 [History Confirmed 06/02/20] Ejection fraction %: 60 to 64 [facility] Medical History (Updated 06/02/20 @ 09:13 by Abbey Lockhart) Dyspnea on exertion (Acute) Near syncope (Chronic) Positional lightheadedness (Chronic) Syncope (Chronic) Longstanding persistent atrial fibrillation (Chronic) History of CVA (cerebrovascular accident) (Chronic) TIA (transient ischemic attack) (Chronic) Essential (primary) hypertension (Chronic) Hyperlipidemia (Chronic) Nicotine dependence (Chronic) Anxiety and depression (Chronic) Bladder diverticulum (Chronic) CVA (cerebral vascular accident) (Chronic) GERD (gastroesophageal reflux disease) (Chronic) Obstructive sleep apnea (Chronic) Osteoarthritis (Chronic) 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 Fco Aguilera MD) Smoking Status: Current every day smoker alcohol intake: former details: H/O abuse ROS Const Const: Positive for fatigue (fatigue ); negative for weakness, headache(s), frequent falls, difficulty sleeping or excessive sweating Eyes Eyes: Negative for loss of peripheral vision, transient loss of vision, blurry vision, double vision or tunnel vision ENT ENT: Negative for headache(s), dizziness, Nosebleed/epistaxis or balance problems Cardio Chest Pain: Yes (left chest radiates to shoulder, more episodes this month w/, w/o activity) Palpitations: No Edema: Bilateral (notes new LE ankle edema) Muscle aches with walking: None Resp Respiratory: Positive for SOB with activity (lightheadedness, SOB with exertion); negative for SOB at rest, SOB orthopnea\SOB lying down, Cough or paroxysmal nocturnal dyspnea GI GI: Negative nausea, vomiting, heartburn or black,tarry stools : Negative for hematuria Musc Musc: Negative for muscle aches/ myalgia, muscle weakness, joint pain or balance problems Skin Skin: Negative non-healing lesions, rash or unusual bruising Neuro Neuro: Positive for lightheadedness, near syncope, syncope, orthostatic symptoms and other (exertional dizziness); negative for dizziness, frequent falls, headache(s), weakness, blurry vision, double vision or lack of coordination Alan Hematologic/Lymphatic: Negative for easy bleeding or easy bruising Endo Endo: Positive for fatigue (fatigue ); negative for excessive sweating or increased thirst/drinking Psych Psych: Negative for anxiety or depression Allergy Allergy/Immunology: Negative for hives, Negative for rash Cardiology Exam Const Appearance: cooperative, healthy appearing, no acute distress, well developed and well groomed Nutritional Appearance: average body habitus and well nourished Orientation: alert, awake and oriented x3 Head Head: normal to inspection, normocephalic and atraumatic Ears: hearing grossly normal bilaterally and external ears normal Nose: external nose normal, nares normal, nasal mucous membranes and turbinates normal, septum normal, no nasal discharge Face and Sinus: face symmetric Mouth: oral mucosae normal, tongue normal, oropharynx normal and moist mucous membranes Teeth and gingiva: dentition normal Throat: posterior oropharynx normal, tonsils normal and uvula midline Eyes General: appearance normal, both eyes and all related structures Eyelids: eyelids normal Conjunctivae: conjunctivae normal Pupils: PERRL, normal by confrontation and accommodation normal EOM: EOM intact bilaterally Neck Neck: normal visual inspection, trachea midline and no JVD JVD: +5 Carotids: normal carotid upstroke and bounding pulses Chest Chest inspection: normal inspection of the chest, symmetric chest movement and normal respiratory effort Auscultation: Bilateral: Clear to Auscultation Cardio Palpation: normal PMI Rate: regular rate Rhythm: irregular rhythm Heart sounds: S1 normal, S2 normal and normal, physiologic split S2; negative rub, gallop or murmur GI GI: normal to inspection, soft, no hepatosplenomegaly and bowel sounds present Neuro General: alert, awake, oriented x3, gait normal, moves all extremities and no focal sensory deficit Skin Skin: no rashes or lesions noted Extremities Pulses: Normal: Right Femoral Pulse, Left Femoral Pulse, Right Dorsalis Pedis Pulse, Left Dorsalis Pedis Pulse, Right Posterior Tibial Pulse, Left Posterior Tibial Pulse, Right Radial Pulse, Left Radial Pulse Lower Extremity Edema: None: Bilateral Musculoskel Musculoskeletal: No joint tenderness Psych Psychological: normal affect Assessment & Plan 1. Longstanding persistent atrial fibrillation I48.11 Plan He does appear to have longstanding persistent atrial fibrillation with a controlled ventricular response rate and is not anticoagulated. My recommendation at this time will be to continue the same and to obtain an exercise stress test to exclude ischemia as well as a 24-hour Holter monitor to see what his ventricular response rate is. Depending on those findings further recommendations will be made. At this juncture he is asymptomatic and I do not think there is a reason to try and convert him back to sinus rhythm. I would like to start him on Eliquis 5 mg twice a day. His ibuprofen and his meloxicam should be only used as needed. His aspirin can be discontinued. Orders Orders: Cardiac Holter Monitor, Set-Up Today Cardiac Holter Monitor/Day Today Nuclear Stress Test - Treadmil Today 2. Essential (primary) hypertension I10 Plan He does have a history of hypertension which is well controlled on the current medical therapy I would not recommend we make any changes at this time. Plan Detail Other Medications New: apixaban (Eliquis) 5 mg PO BID 60 tabs 3RF Discontinued: potassium chloride ER Discontinued Reason: Order Changed 10 mEq PO DAILY Check with primary doctor aspirin (Adult Aspirin Regimen) Discontinued Reason: Order Changed 81 mg PO DAILY Heart/Stroke Prevention Follow Up 6 Months ([facility]) Coding Level of Care Code Off vis,new,level 4 Diagnoses Longstanding persistent atrial fibrillation I48.11 Essential (primary) hypertension I10 Coding Level of Care Code Off vis,new,level 4 Diagnoses Longstanding persistent atrial fibrillation I48.11 Essential (primary) hypertension I10 Supplemental Info Supplemental Information Diagnostics Electrocardiogram 03/29/20 Echocardiogram 03/29/20
--- NOTE | 2020-06-20 08:20 | CL.D_ITS ---
Patient Name: ANGI JACKSON Study Date: 06/20/2020 Performing: Fco Aguilera MD Ht: 71.65 inches 182 cm : 1950 Wt: 194.01 lbs 88 kg Age: 70 Gender: male BSA: 2.1 PROCEDURE(S) PERFORMED [id number] CLINICAL PROFILE AND INDICATIONS Indications: Suspected CAD Heart Failure: None Stress/Imaging Date: 06/12/2020tress Test with SPECT MPI: Positive Low Risk CAD Presentations: Symptom unlikely to be ischemic. CONCLUSIONS Mild to moderate nonobstructive coronary artery disease noted with preserved left ventricular systoli c function. Atrial fibrillation noted. RECOMMENDATIONS Medical therapy DESCRIPTION OF PROCEDURE The patient arrived to the procedure lab. The risks and benefits of the procedure as well as a full d escription of our services here and current unavailability of surgical backup were fully explained to the patient and/or their significant other prior to the catheterization. The Timeout was completed, verifying the correct patient and procedure. The patient's procedural site was prepped and draped in the usual fashion. Local anesthetic was given subcutaneously to right radial region with Lidocaine 2% . Using a modified Seldinger technique, arterial access was obtained via the right radial artery, a 6 Fr sheath was inserted. Left Coronary Artery selective angiography was performed in multiple views u sing a 5 Fr. 4.0 [place] catheter. Right Coronary Artery selective angiography was then performed in mu ltiple views using a 5 Fr. 4.0 [place] catheter. Left Ventriculography was performed in OLSON projection using a 5 Fr. Pigtail catheter. LV to AO pullback pressures were then recorded.The arterial sheath was pulled and a TR Band was applied for hemostasis CORONARY ANGIOGRAPHY DOMINANCE: Right Dominant LEFT HEART ASSESSMENT Left Ventricular Ejection Fraction: by LV Gram 60 % Normal LV wall motion Normal Left Ventricular systolic function LEFT MAIN: Mild luminal irregularities LEFT ANTERIOR DESCENDING ARTERY: PROX LAD: Moderate luminal irregularities up to 50% CIRCUMFLEX ARTERY: Mild luminal irregularities less than 30% RIGHT CORONARY ARTERY: Mild luminal irregularities less than 30% COMPLICATIONS No Complications PROCEDURE MEDICATIONS Fentanyl 50 mcg IV Versed 1 mg IV Oxygen: 2 L/min via nasal cannula Heparin diluted in 23cc Heparinized saline. Patient given 10cc IA of this solution. 06/20/2020 07:51: 50 Verapamil 2.5mg, Ntg 100mcgs, 2000 units of Heparin diluted in 23cc Heparinized saline. Patient give n 10cc IA of this solution. 06/20/2020 07:51:50 SUMMARY OF HEMODYNAMIC DATA Time AIR REST ECG 07:22:45 AO 132/61 (80) SA 07:54:52 AO 127/67 (91) 08:00:36 LV 143/14, 21 08:07:19 LV 142/11, 20 08:07:25 LV 131/18, 29 08:07:59 LVp 126/19, 39 08:08:05 AOp 141/83 (108) 08:08:10 Signed By Fco Aguilera MD On 06/20/2020 08:19:32 Fco Aguilera MD
== END 2020-06-20 10:00 | disposition home or self-care (01) ==
PROVIDERS: PCP Nurse Practitioner Family; Referring Provider Internal Medicine Cardiovascular Disease; Visit Provider Internal Medicine Cardiovascular Disease
DX: I48.11 Longstanding persistent atrial fibrillation (principal); I10 Essential (primary) hypertension; I25.10 Atherosclerotic heart disease of native coronary artery without angina pectoris; E78.5 Hyperlipidemia, unspecified; K21.9 Gastro-esophageal reflux disease without esophagitis; M19.90 Unspecified osteoarthritis, unspecified site; G47.33 Obstructive sleep apnea (adult) (pediatric); F17.200 Nicotine dependence, unspecified, uncomplicated; Z86.73 Personal history of transient ischemic attack (TIA), and cerebral infarction without residual deficits; Z79.899 Other long term (current) drug therapy; Z79.01 Long term (current) use of anticoagulants; Z79.82 Long term (current) use of aspirin; Z79.02 Long term (current) use of antithrombotics/antiplatelets
CPT/HCPCS: 93458; 99152; 99153; J7040; Q9967; C1769; C1894

== ENCOUNTER 2020-08-03 14:41 | Outpatient (RCR) | payer MEDICARE, SELFPAY ==
[2020-06-19 08:57] VITALS: BMI 26.5
[2020-08-03] MEDS: COVID-19 VACC, MRNA(PFIZER)/PF 30 MCG/0.3 ML SYRINGE IM (08:48)
[2020-08-24] MEDS: COVID-19 VACC, MRNA(PFIZER)/PF 30 MCG/0.3 ML SYRINGE IM (08:38)
== END 2020-10-31 23:59 ==
LOC: IMMUN 14:41
PROVIDERS: PCP Nurse Practitioner Family; Visit Provider Family Medicine
DX: Z23 Encounter for immunization (principal)
CPT/HCPCS: 0001A; 0002A; 91300

== ENCOUNTER 2020-08-09 09:29 | Day surgery (SDC) | payer MEDICARE, SELFPAY ==
[2020-06-19 08:57] VITALS: BMI 26.5
--- NOTE | 2020-08-03 09:27 | EKG12_ITS ---
Test Reason : PREOP Blood Pressure : / mmHG Vent. Rate : 049 BPM Atrial Rate : 375 BPM P-R Int : 000 ms QRS Dur : 078 ms QT Int : 442 ms P-R-T Axes : 000 -42 054 degrees QTc Int : 399 ms Atrial fibrillation with premature ventricular or aberrantly conducted complexes Left axis deviation Abnormal ECG Confirmed by JESSICA BULLARD, RAHEEM ([id number]), editorial intern EULALIA JACOME ([id number]) on 08/07/2020 11:01:29 A M Referred By: Bo Dixon Confirmed By:JOE LOPEZ MD
[2020-08-03 10:03] LABS: Absolute Lymphocyte Count 1.86 X10^3/uL (0.83-4.51); Absolute Neutrophil Count 5.2 X10^3/uL (2.0-7.7); Basophil# 0.08 X10^3/uL; Eosinophil# 0.27 X10^3/uL; Eosinophils% 3.3 % (0-5); Hematocrit 46.9 % (40-54); Hemoglobin 14.8 g/dL (13.0-16.5); Lymphocyte # 1.86 X10^3/ul (4.0); Lymphocyte % 22.5 % (19-41); Mean Corp Hgb Conc 31.6 g/dL (32-36); Mean Corpuscular Hgb 27.5 pg (27.0-32.0); Mean Corpuscular Volume 87.2 fL (80-94); Mean Platelet Vol. 9.2 fl (6.2-12.0); Monocyte# 0.87 X10^3/uL; Monocyte% 10.5 % (0-10); NRBC Flagged by Analyzer 0 % (0-5); Neutrophil # 5.16 X10^3/uL (2.7-7.7); Neutrophil % 62.2 % (47-70); Platelet Count 225 K/mm3 (150-450); RBC Distribution Width CV 14.9 % (11.6-14.6); Red Blood Count 5.38 M/mm3 (4.6-6.2); White Blood Count 8.3 K/mm3 (4.4-11.0)
[2020-08-03 10:15] LABS: International Normalized Ratio 1.2; Prothrombin Time (Protime)PT. 14.8 SECONDS (11.7-14.9)
[2020-08-03 10:16] LABS: Partial Thromboplast Time 31.7 Seconds (24.1-36.2)
[2020-08-03 10:53] LABS: AST(SGOT) 27 U/L (15-37); Alanine Aminotransfer ALT/SGPT 39 U/L (16-61); Albumin, Serum 3.6 g/dL (3.2-5.0); Alkaline Phosphatase 126 U/L (45-117); Anion Gap 5 (5-15); BUN 9 mg/dL (7-18); BUN/Creat Ratio 11.3 RATIO (10-20); Calcium,Total 9.2 mg/dL (8.5-10.1); Chloride 106 mmol/L (98-107); EST Glomerular Filtration Rate 101 mL/min (>60); Est Glom Filt Rate - Afr Amer 123 mL/min (>60); Glucose 92 mg/dL (74-106); Potassium 3.8 mmol/L (3.5-5.1); Protein, Total 7.6 g/dL (6.4-8.2); Sodium Level 141 mmol/L (136-145)
[2020-08-09] VITALS (21 sets, daily range): BP systolic 124–166; BP diastolic 68–97; PULSE 48–103; RESP 16–18; TEMP 36–36.7; O2SAT 92–100; BMI 27.4
[2020-08-09] MEDS: Lactated Ringers 1,000 ML 100 ML IV ×3 (10:00→17:04)
--- NOTE | 2020-08-09 11:45 | PROS_PTH ---
PATIENT: ANGI [place] [facility] [id number] AGE/SX: 70/M ROOM: RE08/09/[address]: Dr. Bo Dixon MD : 1950 BED: DIS: 08/10/2020 SPEC #: [id number] RECD: 08/09/20 14:04 STATUS: GALA MARCELINO #: [id number] ROEL: 08/09/20 11:[address]: Bo Dixon DEPT: SURGICAL PATHOLOGY RECD BY: Sowmya Rausch ENTERED: 08/10/20 06:50 SP TYPE: TURP OTHR DR: MD Dr. Fco Kenney, MD Ilene Anderson, FACETER-C Tissues: Prostate, NOS Procedures: Surgery Specimen Level IV HEADER OPERATION: Cystoscopy, TUR prostate, Olymp[employer] PRE-OP DIAGNOSIS: BPH with obstruction TISSUE SUBMITTED: Prostate tissue MICROSCOPIC DIAGNOSIS Prostate, transurethral resection: Benign nodular hyperplasia, glandular and stromal types. Urothelium with mild chronic inflammation. Chronic prostatitis with focal acute prostatitis. AM:aileen 08/11/2020 MICROSCOPIC DESCRIPTION Slides are reviewed. GROSS DESCRIPTION Received is one container labeled with the patient's name and designated prostate tissue. The specimen consists of multiple irregular fragments of pink-danielson, rubbery, soft tissue that in aggregate weigh 1.7 gm and measure in aggregate 5 x 3 x 0.2 cm. The entire specimen is submitted in two cassettes. / AM:aileen 08/10/20 TC:2 CPT: 62430
--- NOTE | 2020-08-09 12:50 | PCM.HP.STD ---
History of Present Illness Date of Admission: 08/09/20 Chief Complaint: BPH with obstruction The patient is a 70 year old male with a history of BPH with obstruction is on medical therapy and still having significant outlet flow problems and frequency urgency and output let obstruction. He is agreed to undergo a TURP Past Medical History Past Medical History (Chronic Problems): Chronic Problems (Last Updated 06/20/20 @ 16:13 by Abbey Lockhart) Atherosclerotic heart disease of [place] coronary artery without angina pectoris (Chronic) Near syncope (Chronic) Positional lightheadedness (Chronic) Syncope (Chronic) Longstanding persistent atrial fibrillation (Chronic) History of CVA (cerebrovascular accident) (Chronic) TIA (transient ischemic attack) (Chronic) Essential (primary) hypertension (Chronic) Hyperlipidemia (Chronic) Nicotine dependence (Chronic) Medical History: Medical History (Last Reviewed 08/09/20 @ 12:[address] 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 CVA (cerebral vascular accident) I63.9 GERD (gastroesophageal reflux disease) K21.9 Obstructive sleep apnea G47.33 Osteoarthritis M19.90 Squamous cell cancer of skin of [place] C44.42 Squamous cell skin cancer C44.92 Allergies codeine Allergy (Verified 08/09/20 10:08) HEART RATE IRREGULAR rivaroxaban [From Xarelto] Adverse Reaction (Verified 08/09/20 10:08) Bleeding Home Medications: Ambulatory Orders Medication Instructions Recorded lisinopril 40 mg tablet 40 mg PO DAILY 05/08/18 magnesium oxide 400 mg PO QHS cap 05/08/18 montelukast 10 mg tablet 10 mg PO QPM 05/08/18 multivitamin,[id number]-[id number] 1 tab PO DAILY 05/08/18 pravastatin 20 mg tablet 20 mg PO QHS 05/08/18 Amlodipine [Norvasc] 5 mg PO DAILY 06/29/18 Omeprazole [Prilosec] 20 mg PO DAILY 06/29/18 Duloxetine HCl 30 mg PO DAILY 02/29/20 Finasteride [Proscar] 5 mg PO DAILY 02/29/20 apixaban 5 mg tablet 5 mg PO BID #180 tab 06/02/20 gabapentin 100 mg capsule 300 mg PO BID cap 06/02/20 tamsulosin 0.4 mg capsule 0.4 mg PO DAILY cap 06/02/20 metoprolol succinate 100 mg 100 mg PO BID 06/12/20 tablet,extended release 24 hr Surgical History: Surgical History (Last Reviewed 08/09/20 @ 12:[address] Bo Dixon MD) History of bladder surgery Onset Date: 03/29/20 Z98.890 History of cholecystectomy Z90.49 History of colonoscopy Z98.890 History of left heart catheterization Onset Date: 06/20/20 Z98.890 History of total bilateral knee replacement Z96.653 History of total hip arthroplasty Z96.649 Surgical History: no surgical history Smoking Status: Current every day smoker Tobacco Use: Pipe - *Family History Maternal Family History: Family History (Last Reviewed 06/02/20 @ 09:05 by Abbey Lockhart) Father Heart disease Hypertension CVA (cerebral vascular accident) Mother Hypertension Breast cancer History Items: No pertinent history Review of Systems Constitutional: Denies: Chills, Fever, Weight Change HEENT: Denies: Head Aches, Sinus Congestion, Sinus Drainage Cardiovascular: Denies: Chest Pain, Palpitations Respiratory: Denies: Cough, Shortness of breath at rest, Sputum production Gastrointestinal: Denies: Abdominal Pain, Nausea, Vomiting Genitourinary: Denies: Dysuria Musculoskeletal: Denies: Joint Pain, Joint Tenderness Skin: Denies: Rash, Wounds Neurological: Denies: Numbness, Tingling, Focal weakness Psychiatric: Denies: Anxiety, Depression, Homicidal Ideations, Suicidal Ideations Hematologic/ Lymphatic: Denies: Easy Bruising, Easy Bleeding VTE Information - Inpt Only VTE Present on Admission: No - Physical Exam Vitals/I&O's: Vital Signs Temp Pulse Resp BP Pulse Ox 98.1 F 48 L 16 146/77 H 100 08/09/20 10:03 08/09/20 10:03 08/09/20 10:03 08/09/20 10:03 08/09/20 10:03 Oxygen Delivery Method Room Air Weight: 91.9 kg Body Mass Index (BMI) 27.4 General: Alert, Oriented x3, Cooperative HEENT: Atraumatic, PERRLA, EOMI, Normocephalic Neck: Supple, No JVD, Negative Carotid Bruits Lungs: Clear to auscultation, Normal air movement Cardiovascular: Regular rate, No murmurs Abdomen: Bowel Sounds Present, Soft, Non Tender Extremities: No edema, Capillary Refill Less than 3 Seconds Skin: No rashes, No breakdown Musculoskeletal: No Tenderness to Palpation of Joints or Extremities Neurological: Cranial nerves II-XII grossly intact Psych/Mental Status: Normal Affect, Appropriate Microbiology Past 72 Hours 08/08/20 08:39 Interface Orders SARS-CoV-2 Antigen (Rapid) - Final Current Medications Lactated Ringer's () 1,000 mls @ 100 mls/hr IV .Q10H J CARLOS Last Admin: 08/09/20 10:00 Dose: 100 mls/hr Documented by: Assessment/Plan All Active Problems (Last Updated 06/20/20 @ 16:13 by Abbey Lockhart) Multiple premature ventricular complexes (Acute) Chest pain (Acute) Dyspnea on exertion (Acute) Plan to proceed with a TURP
[2020-08-09] MEDS: Cefazolin 2 GM in 0.9% Normal Saline 100 ML IV (12:52)
--- NOTE | 2020-08-09 12:55 | PCM.DC.URO ---
Discharge Diet: No Restrictions Discharge Activity: Return to Normal Activity, May Not Drive - for 2 days. Additional Activity Instructions:: Please be aware that pain medications may cause nausea. You should typically eat light foods as you take your pain medication. Pain medication may cause constipation, if this is a problem for you, please discuss with your doctor. Instructions: Transurethral Resection of the Prostate (TURP): Home Recovery Allergies/Adverse Reactions: Allergies codeine Allergy (Verified 08/09/20 10:08) HEART RATE IRREGULAR rivaroxaban [From Xarelto] Adverse Reaction (Verified 08/09/20 10:08) Bleeding Medications to take at Discharge lisinopril 40 mg tablet 40 mg PO DAILY 05/08/18 magnesium oxide 400 mg PO QHS cap 05/08/18 montelukast 10 mg tablet 10 mg PO QPM 05/08/18 multivitamin,fw-swtl-crbplfym 1 tab PO DAILY 05/08/18 pravastatin 20 mg tablet 20 mg PO QHS 05/08/18 Amlodipine [Norvasc] 5 mg PO DAILY 06/29/18 Omeprazole [Prilosec] 20 mg PO DAILY 06/29/18 Duloxetine HCl 30 mg PO DAILY 02/29/20 Finasteride [Proscar] 5 mg PO DAILY 02/29/20 apixaban 5 mg tablet 5 mg PO BID #180 tab 06/02/20 gabapentin 100 mg capsule 300 mg PO BID cap 06/02/20 tamsulosin 0.4 mg capsule 0.4 mg PO DAILY cap 06/02/20 metoprolol succinate 100 mg tablet,extended release 24 hr 100 mg PO BID 06/12/20 Ciprofloxacin [Cipro] 500 mg PO BID #10 tablet 08/09/20 The following prescriptions were given: Ciprofloxacin [Cipro] 500 mg PO BID #10 tablet Transmission Status: Pending to [address] Orders to be completed after discharge: 12 Lead EKG [[facility]] Location: None Selected Primary Care Physician: Ilene Anderson NP, STAFF DEVELOPMENT COORDINATOR RN-C [Primary Care Provider] - Test Results: Test results from this visit will be discussed in further detail at your follow-up appointment, if applicable. Please Follow Up With: Bo Dixon MD When: in 2 weeks, please call to make an appointment. Proposed Discharge Date: 08/10/20
--- NOTE | 2020-08-09 13:33 | OP.PCM_ITS ---
Report of Operation Date of Procedure: 08/09/20 Pre-Operative Diagnosis: BPH with obstruction Post-Operative Diagnosis: Same Surgery/Procedure Performed:: Transurethral section of the prostate Description of Surgical Findings:: In the preoperative setting I discussed with the patient how the surgery would be done with expect afterwards. We discussed how a prostate resection is done and we discussed the risk of the surgery including, bleeding, infection, retrograde ejaculation, changes with ejaculation or intercourse,. We discussed the possibility that the resection of the prostate may not alleviate his urinary symptoms. We discussed the small risk of developing scar tissue along the urethral channel and strictures. We also discussed the chance of the prostate could grow back and he may need further surgery or treatment in the future for prostate problems. Patient was taken back to the operating room, timeout procedure was performed, he was identified and marked and placed on the operating room table. He underwent general anesthesia. He was placed in dorsolithotomy position. Penis and testicles were prepped and draped in usual sterile fashion. Went into the bladder using the visual obturator with a resectoscope. Once inside the bladder identified the right and left ureteral orifice. I then identified the prostate and the anatomy of the prostate. I marked out the area of the sphincter and the verumontanum was identified. I then proceeded with the prostate resection first resected the median lobe. And then resected the right lobe of the prostate. Then to resect the left lobe of the prostate. I then resected the apical tissue of the prostate. Made sure that there was no injury to the sphincter or the verumontanum was still intact. At the end of the resection all the chips were Ellik out of the bladder. I then identified the left and right ureteral orifice and these were confirmed to be in good position and effluxing and not injured. The resectoscope was removed, a 22 M[place] catheter was placed into the bladder on continuous irrigation. And the urine was fairly light pink color and draining normally. He was taken back to the PACU in good condition. Type of Anesthesia:: General Drains: 3 way monge - Admit VTE Documentation VTE Present on Admission: No
--- NOTE | 2020-08-09 14:56 | SUR.PHASEI ---
Addendum entered by Sherry Rai 08/09/20 15:33: PATIENT REPORTS CHEST PAIN COMPLETELY RELIEVED BY NITRO X 2, MORPHINE, O2. EKG UNREMARKABLE. TROPONIN SENT. CALLED DR ORR TO RE-EVALUATE AND REVIEW. Original Note: PACU: C/O SUDDEN ONSET MIDSTERNAL CHEST PAIN DESCRIBED AT SOMETHING SITTING ON MY CHEST...FEELS LIKE I NEED TO BURP. VERY MILD NAUSEA. REMAINS IN AFIB w/ OCCAS PVC ON TELE, NO ST DEPRESSION OR ELEVATION NOTED. SKIN PINK, WARM, DRY. O2 PLACED AT 3 L/MIN. NOTIFIED DR ORR WHO ORDERED 12-LEAD EKG, TROPONIN X 1, MORPHINE 4 MG, NITRO PROTOCOL, AND PRN BICITRA.
--- NOTE | 2020-08-09 14:57 | EKG12_ITS ---
Test Reason : CHEST PAIN Blood Pressure : / mmHG Vent. Rate : 059 BPM Atrial Rate : 069 BPM P-R Int : 000 ms QRS Dur : 082 ms QT Int : 428 ms P-R-T Axes : 000 -25 060 degrees QTc Int : 423 ms Atrial fibrillation with premature ventricular or aberrantly conducted complexes Abnormal ECG When compared with ECG of 09-AUG-2020 14:05, MANUAL COMPARISON REQUIRED, DATA IS UNCONFIRMED Confirmed by MEHDI BULLARD, YIMI ([id number]), map editor EULALIA JACOME ([id number]) on 08/11/2020 9:22:45 AM Referred By: Bo Dixon Confirmed By:YIMI HARDING MD
--- NOTE | 2020-08-09 17:10 | SUR.PHASEI ---
pt ready for dc from pacu but room on floor not ready. No CP or SOB. CBI running w/o difficulty.
--- NOTE | 2020-08-09 17:23 | SUR.PHASEI ---
room ready on med surg 3 pt now being taken up via bed. CBI runinng clear no clots.
[2020-08-09] MEDS: oxyCODONE 5 MG Tablet PO (18:15)
[2020-08-09] MEDS: 0.9% Normal Saline 1,000 ML 75 ML IV (18:16)
[2020-08-09] MEDS: Ciprofloxacin 400 MG/200 ML BAG 200 MG IV (22:14)
[2020-08-09] MEDS: Docusate Sodium 100 MG Capsule PO (22:16)
[2020-08-10 00:01] VITALS: BP 150/83; PULSE 65; RESP 18; TEMP 36.3; O2SAT 96
[2020-08-10] MEDS: Mag Hydrox/Al Hydrox/Simeth 30 ML UDC PO (00:06)
--- NOTE | 2020-08-10 00:10 | EKG12_ITS ---
Test Reason : Blood Pressure : / mmHG Vent. Rate : 058 BPM Atrial Rate : 300 BPM P-R Int : 000 ms QRS Dur : 076 ms QT Int : 438 ms P-R-T Axes : 000 -47 055 degrees QTc Int : 429 ms Atrial fibrillation Left axis deviation Low voltage QRS Abnormal ECG When compared with ECG of 03-AUG-2020 09:51, Current undetermined rhythm precludes rhythm comparison, needs review Confirmed by MEHDI BULLARD, YIMI ([id number]), sports editor EULALIA JACOME ([id number]) on 08/11/2020 9:33:42 AM Referred By: Bo Dixon Confirmed By:YIMI HARDING MD
[2020-08-10] MEDS: Ibuprofen 600 MG Tablet PO (00:43)
[2020-08-10 00:44] VITALS: BP 150/83; PULSE 60
[2020-08-10] MEDS: Nitroglycerin (INPATIENT USE) 0.4 MG TAB.SUBL SL (00:44)
--- NOTE | 2020-08-10 01:34 | NURSING ---
0030 pt c/o midsternal chest pain rating it a 10/10, sharp aching pain that took my breath away and radiated to my left armpit and side of my neck EKG obtained. Zack paged and ordered nitro. He does not think it is cardiac as troponin series has been negative pt placed on oxygen even though O2 sats are stable on RA 0032 nitro and mylanta given. pt instructed to call out if pain worsens or is not relieved. pt acknowledged 0100 pt resting quietly in bed, no distress noted, visible respirs noted
--- NOTE | 2020-08-10 02:44 | NURSING ---
0245 pt awake in bed, denies further c/o chest pain at this time.
[2020-08-10 04:20] VITALS: BP 144/64; PULSE 58; RESP 18; TEMP 36.6; O2SAT 95
[2020-08-10] MEDS: 0.9% Normal Saline 1,000 ML 75 ML IV (04:29)
[2020-08-10 07:42] VITALS: PULSE 80
[2020-08-10] MEDS: Ciprofloxacin 400 MG/200 ML BAG 200 MG IV (10:09)
[2020-08-10 10:13] VITALS: BP 135/65; PULSE 60; RESP 18; TEMP 37.1; O2SAT 96
[2020-08-10] MEDS: Pantoprazole Sodium 40 MG Tablet PO (10:29)
[2020-08-10] MEDS: Docusate Sodium 100 MG Capsule PO (10:29)
[2020-08-10 13:15] VITALS: BP 151/90; PULSE 69; RESP 18; TEMP 37.4; O2SAT 97
== END 2020-08-10 14:01 | disposition home or self-care (01) ==
LOC: SDC 09:30 → AC 09:31 → MS3 08-10 09:09
PROVIDERS: Anesthesiology; PCP Nurse Practitioner Family; Referring Provider Urology; Visit Provider Urology
PROC: 0VT08ZZ Resection of Prostate, Via Natural or Artificial Opening Endoscopic (ICD-10-PCS; CPT 52601; principal; 2020-08-09 11:35)
DX: N40.1 Benign prostatic hyperplasia with lower urinary tract symptoms (principal); N13.8 Other obstructive and reflux uropathy; R39.15 Urgency of urination; R35.0 Frequency of micturition; I25.10 Atherosclerotic heart disease of native coronary artery without angina pectoris; I48.11 Longstanding persistent atrial fibrillation; E78.5 Hyperlipidemia, unspecified; I10 Essential (primary) hypertension; F17.290 Nicotine dependence, other tobacco product, uncomplicated; K21.9 Gastro-esophageal reflux disease without esophagitis; G47.33 Obstructive sleep apnea (adult) (pediatric); M19.90 Unspecified osteoarthritis, unspecified site; Z20.828 Contact with and (suspected) exposure to other viral communicable diseases; Z86.73 Personal history of transient ischemic attack (TIA), and cerebral infarction without residual deficits; Z79.899 Other long term (current) drug therapy; Z79.01 Long term (current) use of anticoagulants; K44.9 Diaphragmatic hernia without obstruction or gangrene; I48.91 Unspecified atrial fibrillation; R94.31 Abnormal electrocardiogram [ECG] [EKG]
CPT/HCPCS: 52601; 36415; 80048; 80076; 84484; 85025; 85610; 85730; 87426; 88305; 93005; 99406; C9803; J7030; J7120; J0744

== ENCOUNTER → 2022-01-31 | Outpatient (CLI) | payer MEDICARE, SELFPAY ==
--- NOTE | 2022-01-31 13:20 | CT_ITS ---
STUDY: LOW DOSE CT LUNG CANCER SCREENING REASON FOR EXAM: Male, 71 years old. SCREENING. Patient''s small 2 packs per day for 40 years. RADIATION DOSAGE (If Supplied By Facility): CTDIvol = ( 4.02 ) mGy, DLP = ( 133.41 ) mGycm TECHNIQUE: No contrast was administered. Low dose technique was utilized (average mAS-38 and kVp 120). 1.25 mm axial source images with a slice interval of 1.25-mm were reconstructed in lung windows. 2.5 mm axial source images with a slice interval of 2.5-mm were reconstructed in lung windows. 5.0 mm axial source images with a slice interval of 5.0-mm were reconstructed in soft tissue windows. COMPARISON: None. NODULES: No suspicious nodules are seen. Emphysema: Hyperinflation. Mild degree of increased linear markings in the posterior aspect of the right upper lobe as well as in the anterior and lateral aspects of the right upper lobe suggestive of a scarring. Mild degree of increased markings at the lung bases slightly more prominent on the right side. This is in keeping with scarring. Endobronchial lesion: None Aorta: Atherosclerotic plaques of the aortic arch. CORONARY ARTERIES: Coronary artery calcification is seen. Heart: Unremarkable Pulmonary artery: Unremarkable Mediastinal nodes: Small mediastinal lymph nodes. Other chest and abdominal findings: CT/Low Dose CT Lung Screening IMPRESSION: Lung-RADS category 2 - Continue annual screening with LDCT in 12 months. IMPORTANT NOTES FOR USE: ACR Lung-RADS Version 1.1 Assessment Categories Release Date: 2018 Category: Coded 0-4 bases on nodule(s) with highest degree of suspicion. Negative screen is defined as categories 1 and 2; a positive screen is defined as categories 3 and 4. Category 3 and 4A nodules that are unchanged on interval CT should be coded as category 2, and individuals returned to screening in 12 months. Category 4X: Category 3 or 4 nodules with additional imaging findings that increase the suspicion of lung cancer, such as spiculation, GGN that doubles in size in 1 year, enlarged lymph notes, etc. Category Modifiers: S (significant finding unrelated to lung cancer) Electronically Signed: Gregg Austin MD at 15:23 EDT ,
== END | disposition home or self-care (01) ==
PROVIDERS: PCP Nurse Practitioner Family; Referring Provider Internal Medicine Pulmonary Disease; Visit Provider Internal Medicine Pulmonary Disease
DX: Z87.891 Personal history of nicotine dependence (principal)
CPT/HCPCS: 71271

== ENCOUNTER → 2023-08-22 | Outpatient (CLI) | payer MEDICARE, SELFPAY ==
--- NOTE | 2023-08-22 07:35 | ECHOCS_ITS ---
Reason For Study: Chest Pain, Afib Procedure This was a 2D Doppler, Color Flow transthoracic echocardiogram. The study was technically difficult. Contrast injection was performed. Exam performed in department. Left Ventricle Normal LV size. Left ventricular systolic function is normal. The estimated ejection fraction is 55 %. No regional wall motion abnormalities noted. Right Ventricle Normal RV size. Normal systolic function. Atria Normal left atrium. Normal right atrium. Mitral Valve Mitral valve not well visualized. Tricuspid Valve Normal tricuspid valve. Aortic Valve The aortic valve is not well visualized. Pulmonic Valve The pulmonic valve is not well visualized. Great Vessels Normal aortic root. Pericardium/Pleural No pericardial effusion. Medication 22 gauge I.V. with prn adaptor inserted into right arm. Diluted definity 2.5ml given slow IV push to enhance endocardial definition. MMode/2D Measurements & Calculations LVIDd: 4.5 cm IVSd: 1.2 cm Ao root diam: 3.1 cm LVIDs: 3.1 cm LVPWd: 1.1 cm LA dimension: 4.5 cm FS: 31.2 % LAV(MOD-bp): 58.7 ml LA A4 area: 23.5 cm2 RA A4 area: 25.0 cm2 LAV(MOD-bp) Indexed: 26.3 ml/m2 LAV(MOD-sp2): 42.2 ml LAV(MOD-sp4): 76.5 ml Doppler Measurements & Calculations MV E max raj: 93.3 cm/sec MV V2 max: 98.6 cm/sec Ao V2 max: 116.9 cm/sec MV max P.9 mmHg Ao max P.5 mmHg MV V2 mean: 48.0 cm/sec Ao V2 mean: 75.8 cm/sec MV mean P.2 mmHg Ao mean P.7 mmHg MV V2 VTI: 24.5 cm Ao V2 VTI: 24.4 cm LV V1 max: 72.1 cm/sec PA V2 max: 80.4 cm/sec LV V1 max P.1 mmHg ECHO/Echo Complete W/ Contrast Interpretation Summary Normal LV size. Left ventricular systolic function is normal. The estimated ejection fraction is 55 %. Contrast injection was performed. Ordering Physician: Fco Aguilera Referring Physician: Fco Aguilera Performed By: Keo Red RCS
--- NOTE | 2023-08-22 12:49 | STRESSREP ---
Stress Test Report Pharmacologic myocardial perfusion stress test. 73-year-old male with a history of atrial fibrillation Resting EKG demonstrates atrial fibrillation with a rate of 56 bpm. Resting blood pressure is 158/90 mmHg. 0.4 mg of regadenoson was infused per usual protocol followed by rapid intravenous saline flush injection. Continuous EKG monitoring was performed. The maximum heart rate was 65 bpm which was 44 of max impacted heart rate the maximum workload was 1 metabolic equivalent. At rest there were no ST or T wave changes noted to suggest ischemia and at peak infusion nonspecific ST changes were noted which did not meet the criteria for ischemia. No clinical angina is noted. The final blood pressure was 130/80 mmHg. Myocardial perfusion protocol. 14.3 mCi of technetium 99m sestamibi was injected at rest. 0.4 mg of regadenoson was infused per usual protocol. At peak infusion 44.1 mCi of technetium 99m sestamibi was injected stress images were obtained stress and rest images were reconstructed and compared in the short axis vertical long and horizontal long axis. Perfusion SPECT analysis: Review of the stress images demonstrate normal uptake of tracer noted in all areas of the myocardium. The resting images similar demonstrated normal uptake of tracer noted in all areas of the myocardium. No areas of reversibility are noted to suggest ischemia and no previous infarct is noted. Conclusion: Normal pharmacologic myocardial perfusion stress test.
== END | disposition home or self-care (01) ==
PROVIDERS: PCP Nurse Practitioner Primary Care; Referring Provider Internal Medicine Cardiovascular Disease; Visit Provider Internal Medicine Cardiovascular Disease
DX: R07.9 Chest pain, unspecified (principal); I48.11 Longstanding persistent atrial fibrillation
CPT/HCPCS: 78452; 93017; 93306; A9500; Q9957; A4216; C8929

== ENCOUNTER → 2024-03-10 | Outpatient (CLI) | payer MEDICARE, SELFPAY ==
--- NOTE | 2024-03-10 12:50 | CT_ITS ---
STUDY: LOW DOSE CT LUNG CANCER SCREENING REASON FOR EXAM: Male, 74 years old. HX of nicotine dep RADIATION DOSAGE (If Supplied By Facility): CTDIvol = ( 3.18 ) mGy, DLP = ( 130.76 ) mGycm TECHNIQUE: No contrast was administered. Low dose technique was utilized (average mAS-38 and kVp 120). 1.25 mm axial source images with a slice interval of 1.25-mm were reconstructed in lung windows. 2.5 mm axial source images with a slice interval of 2.5-mm were reconstructed in lung windows. 5.0 mm axial source images with a slice interval of 5.0-mm were reconstructed in soft tissue windows. Nodule measured using lung windows on PACS and/or independent workstation with automated measurement of minimum and maximum diameter. Nodule measurement reported as average diameter rounded to the nearest whole number. Growth is defined as an increase ins size of greater than 1.5 mm. COMPARISON: CT lung cancer screening study dated January 31, 2022 FINDINGS: Total lung nodules (excluding granulomas): None Emphysema: Mild with hyperinflation of the lungs. Endobronchial lesion: None Aorta: No aneurysmal dilatation Coronary arteries: Moderate to significant atherosclerotic calcifications of the coronary arteries are present. Mediastinal nodes: None There are interstitial fibrotic changes of the lungs. There is no demonstrated pleural abnormality. No consolidation is present. No visualized nodules or masses on the current study. Normal mediastinum. Normal hilar regions. Normal unenhanced pulmonary arteries. There is atherosclerotic calcification of the aortic arch with tortuosity and elongation of the aortic arch and descending thoracic aorta. There are multi-level degenerative changes of the thoracic spine. CT/Low Dose CT Lung Screening IMPRESSION: 1. 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 Lung-RADS category 2 - Continue annual screening with LDCT in 12 months. IMPORTANT NOTES FOR USE: ACR Lung-RADS Version 1.0 Assessment Categories Release Date: 2021 Classification system Category 0 (Incomplete)- prior CT studies were performed but are not available, lungs incompletely imaged, findings suggest inflammation or infection Category 1 (negative, <1% chance of malignancy) (no lung nodules/lung nodule(s) with specific findings favoring benign nodule(s)) Category 2 (benign appearance or behavior, <1% chance of malignancy) juxtapleural nodule <10mm mean diameter at baseline OR new and smooth, solid, oval, lentiform, or triangular Category 3 nodules that are stable or decreased at 6 months Category 3 (probably benign, 1-2% chance of malignancy) solid nodule(s)(between 6 and 8 mm at baseline; new nodule between 4 mm and 6 mm) Category 4A lesion, stable or decreased in size at 3-month follow-up (excluding airway nodules) Category 4A (suspicious, 5-15% chance of malignancy) (version 1.1 change previously suspicious) solid nodule(s) (?8 mm to <15 mm at baseline or growing nodule(s) <8 mm) Category 4B (very suspicious, >15% chance of malignancy) stable or growing airway nodule, segmental or more proximal (solid nodule(s) ? 15 mm at baseline or new or growing, and ?8 mm) Category 4X (very suspicious, >15% chance of malignancy) category 3 or 4 nodules with additional features or imaging findings that increase the suspicion of malignancy Modified categories [X]S (e.g. 3S) if there is a clinically significant or potentially significant non-lung cancer finding Electronically Signed: Ammon Gonzales MD at 22:55 EDT Reading Location ID and State: [facility] / [place] , Service support ,
== END | disposition home or self-care (01) ==
PROVIDERS: PCP Nurse Practitioner Primary Care; Referring Provider Internal Medicine Pulmonary Disease; Visit Provider Internal Medicine Pulmonary Disease
DX: Z12.2 Encounter for screening for malignant neoplasm of respiratory organs (principal); Z87.891 Personal history of nicotine dependence
CPT/HCPCS: 71271

== ENCOUNTER → 2024-08-20 | Outpatient (CLI) | payer MEDICARE, SELFPAY ==
--- NOTE | 2024-08-20 11:50 | RAD_ITS ---
EXAM: XR Chest, 2 Views CLINICAL INDICATION: SHORTNESS OF BREATH TECHNIQUE: Frontal and lateral views of the chest. COMPARISON: No relevant prior studies available. FINDINGS: LUNGS AND PLEURAL SPACES: See below. HEART: Cardiomegaly with mild congestion. MEDIASTINUM: Unremarkable. Normal mediastinal contour. BONES/JOINTS: Unremarkable. No acute fracture. RAD/Chest PA and Lateral IMPRESSION: Cardiomegaly with mild congestion. Reading [facility]
[2024-08-20 16:11] LABS: Anion Gap 14 (5-15); BUN 16 mg/dL (4-19); BUN/Creat Ratio 22.1 RATIO (10-20); Carbon Dioxide 21.6 mmol/L (21.0-32.0); Chloride 103 mmol/L (98-108); Creatinine, Serum 0.73 mg/dL (0.70-1.20); EST Glomerular Filtration Rate 95 (>60); Glucose 117 mg/dL (70-99); Potassium 4.4 mmol/L (3.3-5.1); Pro- Brain NATRIURETIC PEPTIDE 1075 pg/mL (<=1800); Sodium Level 139 mmol/L (133-145)
== END | disposition home or self-care (01) ==
PROVIDERS: PCP Nurse Practitioner Primary Care; Referring Provider Student in an Organized Health Care Education/Training Program; Visit Provider Student in an Organized Health Care Education/Training Program
DX: R06.00 Dyspnea, unspecified (principal); R07.9 Chest pain, unspecified
CPT/HCPCS: 36415; 71046; 80048; 83880

== ENCOUNTER → 2024-08-27 | Outpatient (CLI) | payer MEDICARE, SELFPAY | END | disposition home or self-care (01) | PROVIDERS: PCP Family Medicine Geriatric Medicine; Referring Provider Student in an Organized Health Care Education/Training Program; Visit Provider Student in an Organized Health Care Education/Training Program | DX: I48.91 Unspecified atrial fibrillation (principal); R00.2 Palpitations | CPT/HCPCS: 93225; 93226 ==

== ENCOUNTER → 2024-08-30 | Outpatient (CLI) | payer MEDICARE, SELFPAY ==
[2024-08-30 12:32] LABS: Anion Gap 11 (5-15); BUN 13 mg/dL (4-19); BUN/Creat Ratio 17.2 RATIO (10-20); Calcium,Total 9.3 mg/dL (7.6-11.0); Carbon Dioxide 24.9 mmol/L (21.0-32.0); Chloride 102 mmol/L (98-108); Creatinine, Serum 0.76 mg/dL (0.70-1.20); EST Glomerular Filtration Rate 94 (>60); Glucose 144 mg/dL (70-99); Potassium 4.5 mmol/L (3.3-5.1); Sodium Level 138 mmol/L (133-145)
== END | disposition home or self-care (01) ==
LOC: LAB 11:12
PROVIDERS: PCP Family Medicine Geriatric Medicine; Referring Provider Student in an Organized Health Care Education/Training Program; Visit Provider Student in an Organized Health Care Education/Training Program
DX: E87.6 Hypokalemia (principal); I50.31 Acute diastolic (congestive) heart failure
CPT/HCPCS: 36415; 80048

== ENCOUNTER → 2024-09-01 | Outpatient (CLI) | payer MEDICARE, SELFPAY ==
[2024-09-01 17:18] LABS: Absolute Lymphocyte Count 1.42 X10^3/uL (0.83-4.51); Absolute Neutrophil Count 9.4 X10^3/uL (2.0-7.7); Basophil# 0.09 X10^3/uL; Basophil% 0.7 % (0-1); Eosinophils% 1.6 % (0-5); Hematocrit 39.5 % (40-54); Hemoglobin 11.8 g/dL (13.0-16.5); Lymphocyte # 1.42 X10^3/ul (0.83-4.51); Lymphocyte % 11.7 % (19-41); Mean Corp Hgb Conc 29.9 g/dL (32-36); Mean Corpuscular Hgb 22.7 pg (27.0-32.0); Mean Platelet Vol. 9.2 fl (6.2-12.0); Monocyte% 8.2 % (0-10); NRBC Flagged by Analyzer 0 % (0-5); Neutrophil # 9.36 X10^3/uL (2.7-7.7); Neutrophil % 77.3 % (47-70); Platelet Count 424 K/mm3 (150-450); RBC Distribution Width SD 48.5 fl (35.1-43.9); White Blood Count 12.1 K/mm3 (4.4-11.0)
[2024-09-01 18:33] LABS: ALB/GLOB Ratio 1.2 RATIO (0.9-2.4); AST(SGOT) 26 U/L (<=37); Alanine Aminotransfer ALT/SGPT 21 U/L (<=46); Albumin, Serum 4.2 g/dL (3.4-4.8); Alkaline Phosphatase 144 U/L (40-129); Anion Gap 12 (5-15); BUN 13 mg/dL (4-19); Calcium,Total 9.7 mg/dL (7.6-11.0); Carbon Dioxide 23.6 mmol/L (21.0-32.0); Chloride 102 mmol/L (98-108); Creatinine, Serum 0.76 mg/dL (0.70-1.20); EST Glomerular Filtration Rate 94 (>60); Globulin 3.5 g/dL (2.2-4.2); Glucose 117 mg/dL (70-99); Hepatitis C Antibody Nonreactive (Nonreactive); Potassium 4.6 mmol/L (3.3-5.1); Protein, Total 7.7 g/dL (5.9-8.4); Sodium Level 138 mmol/L (133-145); Total Bilirubin 0.62 mg/dL (0.00-1.30); Vitamin D,25 Hydroxy 28.1 ng/mL (30-100)
[2024-09-01 19:11] LABS: Cholesterol 165 mg/dL (<=200); High Density Lipoprotein 37 mg/dL; Low Density Lipoprotein Calc. 101 mg/dL; Triglycerides 136 mg/dL; Very Low Density Lipoprotein 27 mg/dL (5-40); cholesterol:hdl ratio screen 4.48
== END | disposition home or self-care (01) ==
LOC: LAB 16:43
PROVIDERS: PCP Family Medicine Geriatric Medicine; Referring Provider Family Medicine Geriatric Medicine; Visit Provider Family Medicine Geriatric Medicine
DX: E78.5 Hyperlipidemia, unspecified (principal); I50.30 Unspecified diastolic (congestive) heart failure; E55.9 Vitamin D deficiency, unspecified; Z13.89 Encounter for screening for other disorder
CPT/HCPCS: 36415; 80053; 80061; 82306; 84443; 85025; 86803

== ENCOUNTER → 2024-09-30 | Outpatient (CLI) | payer MEDICARE, SELFPAY ==
[2024-09-30 12:38] LABS: Absolute Lymphocyte Count 1.38 X10^3/uL (0.83-4.51); Basophil# 0.11 X10^3/uL; Basophil% 0.8 % (0-1); Eosinophil# 0.14 X10^3/uL; Hematocrit 37.8 % (40-54); Hemoglobin 11.3 g/dL (13.0-16.5); Lymphocyte # 1.38 X10^3/ul (0.83-4.51); Mean Corp Hgb Conc 29.9 g/dL (32-36); Mean Corpuscular Hgb 22.2 pg (27.0-32.0); Mean Corpuscular Volume 74.1 fL (80-94); Mean Platelet Vol. 9.1 fl (6.2-12.0); Monocyte# 1.01 X10^3/uL; Monocyte% 7.4 % (0-10); NRBC Flagged by Analyzer 0 % (0-5); Neutrophil % 80.1 % (47-70); Platelet Count 427 K/mm3 (150-450); RBC Distribution Width CV 18.2 % (11.6-14.6); RBC Distribution Width SD 47.7 fl (35.1-43.9); White Blood Count 13.7 K/mm3 (4.4-11.0)
[2024-09-30 13:22] LABS: Anion Gap 12 (5-15); BUN 20 mg/dL (4-19); BUN/Creat Ratio 18.7 RATIO (10-20); Calcium,Total 9.5 mg/dL (7.6-11.0); Carbon Dioxide 23.8 mmol/L (21.0-32.0); Chloride 102 mmol/L (98-108); Creatinine, Serum 1.07 mg/dL (0.70-1.20); EST Glomerular Filtration Rate 72 (>60); Glucose 117 mg/dL (70-99); Potassium 4.8 mmol/L (3.3-5.1); Sodium Level 137 mmol/L (133-145)
== END | disposition home or self-care (01) ==
LOC: LAB 12:04
PROVIDERS: PCP Family Medicine Geriatric Medicine; Referring Provider Student in an Organized Health Care Education/Training Program; Visit Provider Student in an Organized Health Care Education/Training Program
DX: I50.31 Acute diastolic (congestive) heart failure (principal); R53.83 Other fatigue
CPT/HCPCS: 36415; 80048; 85025

== ENCOUNTER 2024-11-29 14:58 | Inpatient (IN) | payer MEDICARE, SELFPAY ==
[2024-11-19 13:12] LABS: Hematocrit 42.5 % (40-54); Hemoglobin 12.6 g/dL (13.0-16.5); Immature Granulocytes Count 0.080 X10^3/uL (0.0-0.0); Mean Corp Hgb Conc 29.6 g/dL (32-36); Mean Corpuscular Volume 74.3 fL (80-94); Mean Platelet Vol. 9.3 fl (6.2-12.0); NRBC Flagged by Analyzer 0 % (0-5); POSITIVE MORPHOLOGY YES; Platelet Count 401 K/mm3 (150-450); RBC Distribution Width CV 21.1 % (11.6-14.6); RBC Distribution Width SD 52.9 fl (35.1-43.9); Red Blood Count 5.72 M/mm3 (4.6-6.2); White Blood Count 12.2 K/mm3 (4.4-11.0)
[2024-11-19 13:23] LABS: Differential Indicated SCAN CRITERIA MET
[2024-11-19 13:26] LABS: Prothrombin Time (Protime)PT. 16.1 SECONDS (11.7-14.9)
[2024-11-19 13:27] LABS: Partial Thromboplast Time 29.5 Seconds (24.1-36.2)
[2024-11-19 13:42] LABS: Anisocytosis 1+
[2024-11-19 14:24] LABS: Anion Gap 11 (5-15); BUN 24 mg/dL (4-19); BUN/Creat Ratio 18.6 RATIO (10-20); Calcium,Total 9.3 mg/dL (7.6-11.0); Carbon Dioxide 25.2 mmol/L (21.0-32.0); Chloride 97 mmol/L (98-108); Glucose 140 mg/dL (70-99); Potassium 5.2 mmol/L (3.3-5.1)
[2024-11-25 10:06] VITALS: BMI 28.8
[2024-11-29] VITALS (23 sets, daily range): BP systolic 116–155; BP diastolic 64–109; PULSE 57–81; RESP 15–25; TEMP 36.2–36.7; O2SAT 96–99; BMI 29.2
[2024-11-29 10:52] LABS: Anion Gap 10 (5-15); BUN 21 mg/dL (4-19); BUN/Creat Ratio 21.7 RATIO (10-20); Calcium,Total 9.4 mg/dL (7.6-11.0); Carbon Dioxide 26.1 mmol/L (21.0-32.0); Chloride 102 mmol/L (98-108); Estimated Creatinine Clearance 80.13 ml/min (50-250); Glucose 155 mg/dL (70-99); Potassium 4.7 mmol/L (3.3-5.1)
[2024-11-29 11:52] LABS: ACT Activated Clotting Time 325 sec (74-137)
--- NOTE | 2024-11-29 12:21 | PCIREPORT_ITS ---
PCI Cardiac Cath Report PCI Report: Procedure performed 1. Successful PCI of high-grade lesion involving the mid LAD, 80% stenosis With predilatation using 2.5 x 12 mm balloon, followed by placement of drug- eluting stent 3 x 50 mm and achieved excellent result With NURY-3 flow in the LAD and reduction of stenosis to 0%. 2. Placement of TR band to close the right radial artery arteriotomy site. Preprocedure diagnosis 74-year-old patient underwent cardiac catheterization by his primary fabrication inspector Dr. Aguilera I reviewed the angiographic films Consent; Risk and benefit of procedure explained in detail to the patient elected proceed informed consent obtained and placed in the chart. Patient had calcified left main with minimal luminal irregularity The left main coronary artery bifurcates into LAD and the left circumflex. The left anterior descending artery had moderate calcification. With mild atherosclerosis involving the proximal segment of the LAD. The mid segment of LAD had 80% stenotic lesion at the site of mild to moderate sidebranch diagonal. Circumflex artery is nondominant with [place] cardiac moderate calcification and around 50% stenosis. RCA is dominant with mild calcification and mild luminal irregularity of around 30%. Based on his clinical presentation and the significant atherosclerotic lesion involving the mid LAD will proceed with interventional plan. Interventional equipment used 1. With 6 [place] EBU guide catheter 2. 0.014 180 cm extra floppy run-through guidewire 3. 2.5 x 12 mm balloon 4. 3 x 15 mm drug-eluting stent resolute [place]. Medication used in the [employer] Patient was given heparin infusion ACT level acceptable above 300 Patient was given 180 mg of Brilinta. 3. 2 boluses of Integrilin with Integrilin infusion based on his creatinine clearance creatinine clearance is more than 50. Procedure in detail. We proceeded with the guide catheter advanced sending a water cannulated the left main without difficulty. Angiographic view of the left main coronary artery and the lesion involving the LAD was obtained in 2 views NICOL caudal as well as OLSON cranial. Then we proceeded with a guidewire which crossed the lesion without difficulty This followed by balloon dilatation using 2.5 x 12 mm followed by placement of drug-eluting stent resolute [place]. And achieved excellent result. Patient's symptoms is mainly chronic lower back pain requiring more fentanyl and Versed. Angiographic view revealed the patency of the LAD with a NURY-3 flow. There is a lesion involving the sidebranch which is diagonal branch and this was left alone as it is a small size vessel with very 90% angulation which will make it more difficult to cross from the struts of the LAD stents. Conclusion recommendation this is a 74-year-old gentleman has unstable angina and has significant atherosclerosis involving the mid LAD underwent successful PCI No complication in the [employer] Recommendation will be the following #1 dual antiplatelet therapy with Brilinta 90 mg twice daily in addition to low-dose aspirin 2. To continue on Integrilin for 12 hours. 3. To maximize antianginal medications in the form of a beta-zuly, long- acting nitrate and possible Rimacillin. Patient to follow-up with his primary fabrication inspector for continuation of cardiac care. Bryan Hernández MD,FACC,[facility] embroidery machine operator
--- NOTE | 2024-11-29 12:38 | EKG12_ITS ---
Test Reason : Blood Pressure : */* mmHG Vent. Rate : 67 BPM Atrial Rate : * BPM P-R Int : * ms QRS Dur : 78 ms QT Int : 420 ms P-R-T Axes : * -47 31 degrees QTcB Int : 443 ms Atrial fibrillation Left axis deviation Pulmonary disease pattern Abnormal ECG When compared with ECG of 10-Aug-2020 00:16, No significant change was found Confirmed by MEHDI BULLARD, FCO ([id number]), photo editor DAPHNE PINEDA ([id number]) on 12/01/2024 7:17:28 AM Referred By: Fco Aguilera Confirmed By: FCO AGUILERA MD
--- NOTE | 2024-11-29 13:11 | CRPHASE1_ITS ---
Patient Communication Patient Information PHII Cardiac Rehab Discussed with Patient:: Yes Guide to Cardiac Rehab Given to Patient:: Yes Cardiac Rehab Facility Choice List Given to Patient:: Yes Communication to Cardiac Rehab Choice Program [facility] CR PHII:: Communication Given to CR Head Of Sales Promotion:: Bryan Hernández Phase II Cardiac Rehab:: Yes Sessions:: 36 sessions - 3 days/wk, 12 weeks Cardiac Rehabilitation Info Program Information Cardiac Rehabilitation Program Information: Cardiac Rehab The cardiac rehab team at [facility] consists of highly skilled exercise physiologists, nurses, respiratory therapists and physicians working together with you. Our purpose is to help you have a full recovery and achieve the goals you set for yourself. Over the years many of our patients have returned to activities they assumed they would never do again! We can help restore your confidence and motivation to make lifestyle changes that can have a significant impact on your health and quality of life! We can help answer questions and concerns you may have about exercise, lifestyle, medications, diet, stress and anxiety which are common following a hospitalization. WE monitor ECG and vital signs during exercise and discuss your progress with you and report to your physician(s). Cardiac Rehab is proven to help reduce readmissions, improve functional capacity and lower recurrence of problems with your heart. Our Cardiac Rehab program is Certified by the [place] [employer]-Vascular [employer] Pulmonary [employer] (AACVPR) and Accredited by the [place] [employer] through our [facility]. You can contact us at . We invite you to call us with your questions or to get started in our program. If you have other questions or concerns be sure to ask your physician/provider during your follow-up visit. WE look forward to seeing you!
--- NOTE | 2024-11-29 13:12 | CRPH1.INSTRU ---
General Education Discussed with Patient CAD and cardiac anatomy and function:: Patient communicates acknowledgment and Family communicates acknowledgment Explanation of diagnoses and procedures:: Patient communicates acknowledgment and Family communicates acknowledgment Sign/Symptoms of CO:: Patient communicates acknowledgment and Family communicates acknowledgment Antiplatelet therapy: Patient communicates acknowledgment and Family communicates acknowledgment Proper use of NTG-SL: Patient communicates acknowledgment and Family communicates acknowledgment Emergency procedures and activation of EMS: Patient communicates acknowledgment and Family communicates acknowledgment Compliance of all prescribed medications: Patient communicates acknowledgment and Family communicates acknowledgment Smoking Risk Factors Patient Nicotine/Smoking Risk Factors Are:: Cigarettes Recommendations Recommendations Include:: Previous smoker; encourage continued cessation Response Code Nicotine/Smoking Response Code:: Patient communicates acknowledgment and Family communicates acknowledgment Dyslipidemia Risk Factors Patient Dyslipidemia Risk Factors Are:: Total Cholesterol, Triglycerides, HDL and LDL Recommendations Recommendations Include:: Lipid profile not available Response Code Dyslipidemia Response Code:: Patient communicates acknowledgment and Family communicates acknowledgment Overweight/Obesity Risk Factors Patient Overweight/Obesity Risk Factors Are:: BMI Normal [24-29 & > 65 years old] Recommendations Recommendations Include:: Weight loss of 5-10%, Reduced calorie diet and Exercise 5-7 times/week Response Code Overweight/Obesity:: Patient communicates acknowledgment and Family communicates acknowledgment Hypertension Recommendations Recommendations Include:: Maintain BP <130/85 Response Code Hypertension:: Patient communicates acknowledgment and Family communicates acknowledgment Sedentary Risk Factors Patient Sedentary Risk Factors Are:: Lack of regular exercise Recommendations Recommendations Include:: Aerobic exercise 5-7 times/week for 20-30 minutes continuously, Benefits of regular exercise, Discussed home walking program and Monitored Outpatient Cardiac Rehab Response Code Sedentary Response Code:: Patient communicates acknowledgment and Family communicates acknowledgment
[2024-11-29] MEDS: 0.9% Normal Saline (1000mL) 1,000 ML 75 ML IV (13:50)
--- NOTE | 2024-11-29 14:14 | NURSING ---
Daughter notified that patient is being transferred into ICU 05 per MD. Dtr denies any further questions.
--- NOTE | 2024-11-29 14:30 | NURSING ---
Report called to [employer] at this time.
--- NOTE | 2024-11-29 15:23 | PCM.HP.STD ---
HPI - General General Date of Admission: 11/29/24 Date of Service: 11/29/24 Chief Complaint: Elective heart cath status post stenting HPI Narrative ANGI JACKSON, is a 74 y/o M with a history of CVA, A-fib on Eliquis, hypertension, COPD, GERD, depression, chronic pain presented to [facility] 11/29/2024 for elective cath. He had stent to the LAD and disease in the sidebranch that was not amenable to stenting and plan was for PCU for monitoring however patient developed chest pain and it was felt this was due to the sidebranch, EKG with no new changes but patient transferred to the ICU to be placed on nitroglycerin drip. Hospitalist contacted to manage patient's other medications and orders. Patient evaluated at bedside. Patient has been somewhat nauseous, also reports the chest pain is on the left side of his chest and feels almost sharp in nature and worse with a deep breath, main complaint at the time of exam seems to be difficulty catching his breath, necessarily coughing but he is worried he is feeling up with fluids, has history of CVA with some chronic deficits that are noted and he reports that at baseline [facility] Medical History Gastroparesis Atherosclerotic heart disease of [place] coronary artery without angina pectoris Dyspnea on exertion Near syncope Positional lightheadedness Syncope History of CVA (cerebrovascular accident) TIA (transient ischemic attack) Longstanding persistent atrial fibrillation Nicotine dependence Hyperlipidemia Essential (primary) hypertension Obstructive sleep apnea Bladder diverticulum Squamous cell skin cancer Squamous cell cancer of skin of [place] Anxiety and depression GERD (gastroesophageal reflux disease) CVA (cerebral vascular accident) Osteoarthritis Home Medications ?Medication ?Instructions ?Recorded ?Last Taken ?Type fluticasone fur. 100 mcg-umeclid 1 inh inhalation DAILY 09/06/21 Unknown History 62.5 mcg-vilant 25 mcg inhalat.powder duloxetine 60 mg capsule,delayed 60 mg PO DAILY 04/25/22 Unknown History release ondansetron HCl 4 mg tablet 4 mg PO QHS PRN nausea and vomiting 07/17/23 Unknown History albuterol sulfate 90 mcg/actuation 1 inh inhalation Q8H PRN shortness 10/31/23 Unknown History aerosol inhaler of breath or wheezing fluticasone propionate 50 1 spray intranasal 10/31/23 Unknown History mcg/actuation nasal spray,suspension metoprolol tartrate 50 mg tablet 50 mg PO BID 10/31/23 Unknown History omeprazole 40 mg capsule,delayed 40 mg PO BID 10/31/23 Unknown History release fexofenadine 180 mg tablet 180 mg PO Q24H 08/20/24 11/28/24 History pregabalin 50 mg capsule (Lyrica) 50 mg PO BID 08/20/24 Unknown History isosorbide mononitrate 30 mg 30 mg PO DAILY #90 TABLETS 08/30/24 Unknown Rx tablet,extended release 24 hr apixaban 5 mg tablet (Eliquis) 5 mg PO BID 09/17/24 11/26/24 History atorvastatin 40 mg tablet 40 mg PO QHS 09/17/24 Unknown History budesonide 160 mcg-glycopyr 9 2 inh inhalation BID 09/17/24 Unknown History mcg-formot 4.8 mcg/actuation HFA inhaler (Breztri Aerosphere) buprenorphine 20 mcg/hour weekly 1 patch transdermal QWEEK 09/17/24 Unknown History transdermal patch furosemide 40 mg tablet (Lasix) 40 mg PO BID #90 tabs 09/17/24 Unknown Rx lactobacillus combination no.9 PO DAILY 09/17/24 Unknown History [Adult 50 Plus Probiotic] sucralfate 1 gram tablet PO 09/17/24 Unknown History spironolactone 25 mg tablet 25 mg PO QDAY #30 tabs 09/21/24 Unknown Rx empagliflozin 10 mg tablet 10 mg PO QAM #30 tabs 10/27/24 Unknown Rx (Jardiance) Allergy/AdvReac Type Severity Reaction Status Date / Time codeine Allergy HEART RATE Verified 11/05/24 11:23 IRREGULAR rivaroxaban (From Xarelto) AdvReac Bleeding Verified 11/05/24 11:23 Family History Father Heart disease Hypertension CVA (cerebral vascular accident) Mother Hypertension Breast cancer Surgical History History of left heart catheterization (06/20/20) History of total hip arthroplasty History of bladder surgery (03/29/20) History of total bilateral knee replacement History of cholecystectomy History of colonoscopy Social History Smoking Status: Former smoker alcohol intake: former details: H/O abuse substance use type: does not use caffeine: Yes Type: coffee Number of servings: 4 ROS ROS Narrative Not necessarily complaining of acute cough but is having hard time catching his breath, has chest pain more on the left side that is worse with inspiration and somewhat sharp in nature, has some chronic bowel problems that have not acutely changed, does have some nausea, no changes in urination he reported, legs are not swollen, feels just somewhat unwell overall, ROS otherwise negative Vital Signs Vital Signs Vital Signs: 11/29/24 12:09 11/29/24 12:15 11/29/24 12:30 Pulse Rate 57 L 61 63 Blood Pressure 155/85 H 150/83 H 155/80 H Blood Pressure Mean 108 105 105 Blood Pressure Source Monitor Monitor Monitor Blood Pressure Position Semi-Fowlers Semi-Fowlers Semi-Fowlers Blood Pressure Location Left Arm Left Arm Left Arm Pulse Ox Oxygen Delivery Method 11/29/24 12:45 11/29/24 13:00 11/29/24 13:05 Pulse Rate 66 61 Blood Pressure 139/77 H 148/83 H Blood Pressure Mean 97 104 Blood Pressure Source Blood Pressure Position Blood Pressure Location Pulse Ox 97 Oxygen Delivery Method Room Air 11/29/24 13:15 11/29/24 13:30 Pulse Rate 64 64 Blood Pressure 145/74 H 146/74 H Blood Pressure Mean 97 98 Blood Pressure Source Blood Pressure Position Blood Pressure Location Pulse Ox Oxygen Delivery Method Weight Weight: 97.692 kg Body Mass Index (BMI) 29.2 Physical Exam Narrative General: Alert, oriented, appears very anxious HEENT: Atraumatic, does seem to have some chronic difficulties with facial droop and difficulty getting words out Eyes: Anicteric, normal conjunctiva, extraocular movements grossly intact Neck: Supple Respiratory: Does have some faint crackles at the bases seems almost right greater than left, normal respiratory effort Cardiovascular: Irregularly irregular GI: Soft, nontender, nondistended Extremities: No edema Musculoskeletal: Moving all extremities Neuro: Patient has some residual deficits from previous stroke Skin: No rashes appreciated Psych: Appears very anxious Results Lab / Micro Data 11/19/24 12:14 11/29/24 09:23 Labs: Laboratory Results - last 24 hr 11/29/24 09:23: Sodium 139, Potassium 4.7, Chloride 102, Carbon Dioxide 26.1, Anion Gap 10, BUN 21 H, Creatinine 0.96, Estim Creat Clear Calc 80.13, Est GFR (MDRD) Non-Af 83, BUN/Creatinine Ratio 21.7 H, Glucose 155 H, Calcium 9.4 11/29/24 10:16: Activated Clotting Time 325 H Assessment & Plan Assessment/Plan (1) CAD (coronary artery disease): PLAN: Plan # Coronary artery disease status post LAD stent -Patient with LAD stenting after elective heart cath today 11/29/2024 -Patient subsequently developed chest pain and there were no EKG changes but patient was placed on nitroglycerin drip due to concerns that the symptoms were from a sidebranch and patient transition to ICU -Patient on nitro, Eliquis and aspirin and Brilinta ordered by cardiology -Continue statin and beta-zuly -Further management per cardiology # Chest pain and dyspnea - Patient on nitro drip, reports pain some was more left-sided and worse with inspiration sharp in nature - Presently is vitally stable saturating 100% - Feels he is having difficulty taking a deep breath, again vitally stable - Will check proBNP and chest x-ray - Does have history of COPD, will give neb treatment - If all else negative and does not improve patient's shortness of breath could be related to Brilinta and will need to consider discussing alternate agent with cardiology #Paroxysmal Atrial Fibrillation -Rate control: Metoprolol, will continue -Anticoagulation: Eliquis #Hx COPD -Continue home inhalers -Incentive spirometer #Documented Hx HFpEF - Not in exacerbation - Last echo with no overt abnormalities - Daily weights, I's and O's - Holding Lasix today given patient receiving IV fluids - Monitor volume status and add back Lasix and spironolactone as indicated/tolerated #GERD -Continue PPI # Chronic pain -Patient with buprenorphine patch -Continue home regimen and Lyrica #Elevated glucose - Glucose checks, sliding scale insulin -Restart Jardiance on discharge -Chava check A1c #Depression/anxiety -Continue home Cymbalta #DVT ppx: Patient chronically be on Eliquis Margarita Levy MD Charges/Coding Visit Charges Inpatient E&M: 49422 Init Hosp L2
[2024-11-29] MEDS: Nitroglycerin Infusion 250 ML 3 MG CONT INF (15:29)
--- NOTE | 2024-11-29 15:32 | NURSING ---
This RN received in handoff from chemical lab supervisor RN Barry, continue Integrilin gtt for 12 hours, as pt arrived to floor with running. Per chemical lab supervisor RN Dr. Hernández to place orders, chemical lab supervisor RN to notify Dr. Henrández. Dr. Hernández arrived to floor at approximately 1345, this RN asked about integrilin gtt, to which Dr. Hernández stated yes continue the gtt, but he would place order as soon as pt arrived up to ICU.
[2024-11-29 16:17] LABS: Hematocrit 42.7 % (40-54); Hemoglobin 12.9 g/dL (13.0-16.5); Mean Corp Hgb Conc 30.2 g/dL (32-36); Mean Corpuscular Volume 72.7 fL (80-94); Mean Platelet Vol. 8.9 fl (6.2-12.0); Platelet Count 388 K/mm3 (150-450); RBC Distribution Width CV 20.8 % (11.6-14.6); RBC Distribution Width SD 51.9 fl (35.1-43.9); Red Blood Count 5.87 M/mm3 (4.6-6.2); White Blood Count 13.7 K/mm3 (4.4-11.0)
[2024-11-29 16:18] LABS: Scan Indicated on CBC? Y/N YES- FLAGS NOTED
--- NOTE | 2024-11-29 16:19 | ECHOD_ITS ---
Reason For Study Reason For Study: Chest Pain Procedure This was a 2D Doppler, Color Flow transthoracic echocardiogram. Exam performed portable in ICU/CCU. Left Ventricle Normal LV size. Mild concentric left ventricular hypertrophy. Left ventricular systolic function is normal. The left ventricular ejection fraction is 60 %. Stage 3 diastolic dysfunction. No regional wall motion abnormalities noted. Right Ventricle Normal RV size. Normal systolic function. Atria Normal left atrium. The right atrium is mildly enlarged. Mitral Valve Normal mitral valve. Tricuspid Valve Normal tricuspid valve. Mild (1+) tricuspid valve insufficiency. Pulmonary artery systolic pressure is 33 mmHg. Great Vessels Normal aortic root. The pulmonary artery is normal size. Inferior vena cava collapse with respiration. Pericardium/Pleural No pericardial effusion. MMode/2D Measurements & Calculations LVIDd: 4.7 cm IVSd: 1.3 cm Ao root diam: 3.3 cm LVIDs: 2.5 cm LVPWd: 1.2 cm RVDd: 5.0 cm FS: 47.0 % LAV(MOD-bp): 59.7 ml SV(MOD-sp4): 52.0 ml LVAd ap4: 26.6 cm2 LAV(MOD-bp) Indexed: 27.4 ml/m2 LVLd ap4: 7.3 cm SI(MOD-sp4): 23.9 ml/m2 LAV(MOD-sp2): 51.7 ml EDV(MOD-sp4): 79.9 ml LAV(MOD-sp4): 60.9 ml EDV(sp4-el): 81.9 ml LVAs ap4: 14.5 cm2 LVLs ap4: 6.4 cm ESV(MOD-sp4): 27.9 ml ESV(sp4-el): 27.8 ml EF(MOD-sp4): 65.1 % EF(sp4-el): 66.1 % SV(sp4-el): 54.1 ml LA dimension(2D): 3.9 cm LA A4 area: 20.4 cm2 TAPSE: 2.2 cm RA A4 area: 24.3 cm2 Time Measurements MV dec time: 0.19 sec Doppler Measurements & Calculations MV E max chandra: 109.0 cm/sec Lat Peak E' Chandra: 15.5 cm/sec Med Peak E' Chandra: 11.9 cm/sec MV A max chandra: 41.0 cm/sec E/E' lat: 7.0 E/E' med: 9.2 MV E/A: 2.7 Ao V2 max: 171.8 cm/sec LV V1 max: 87.7 cm/sec MV dec slope: 520.1 cm/sec2 Ao max P.8 mmHg LV V1 max P.1 mmHg Ao V2 mean: 117.6 cm/sec Ao mean P.2 mmHg Ao V2 VTI: 28.8 cm PA V2 max: 126.0 cm/sec TR max chandra: 270.5 cm/sec TR max P.3 mmHg ECHO/Echo Complete Interpretation Summary Normal LV size. Left ventricular systolic function is normal. Mild concentric left ventricular hypertrophy. The left ventricular ejection fraction is 60 %. The right atrium is mildly enlarged. Stage 3 diastolic dysfunction. Ordering Physician: Margarita Levy Referring Physician: Jovany Brush Chi Performed By: Mamie Del Rosario, ROLLY, RVT
--- NOTE | 2024-11-29 16:30 | RAD_ITS ---
PROCEDURE: CHEST 1 VIEW (PORTABLE) 11/29/2024 REASON FOR EXAM: SOB TECHNIQUE: Frontal view of the chest. COMPARISON: Chest x-ray 08/20/2024. RAD/Chest 1 View (Portable) IMPRESSION: Mild right hemidiaphragm elevation is again present. Lungs appear clear of acute disease. No pleural effusion or pneumothorax is noted. The cardiomediastinal silhouette is stable, without evident of cardiomegaly. No evidence of acute cardiopulmonary disease. Reading Location: [address]
[2024-11-29 16:50] LABS: Pro- Brain NATRIURETIC PEPTIDE 531 pg/mL (<=1800)
[2024-11-29 17:05] LABS: POSITIVE MORPHOLOGY YES
[2024-11-29] MEDS: EPTIFIBATIDE 75 MG/100 ML VIAL 15.5 MG CONT INF (17:59)
[2024-11-29] MEDS: Budesonide Respules 0.5 MG/2 ML AMPUL.NEB. INHALATION (19:00)
[2024-11-29] MEDS: 0.9% Saline Lock 10 ML Syringe IV ×2 (21:38→22:56)
[2024-11-29] MEDS: APIXABAN 5 MG TABLET PO (21:39)
[2024-11-30] VITALS (29 sets, daily range): BP systolic 107–135; BP diastolic 62–88; PULSE 61–79; RESP 12–21; TEMP 36.2–36.5; O2SAT 95–100; BMI 28.7
[2024-11-30 03:39] LABS: Hematocrit 39.0 % (40-54); Hemoglobin 11.9 g/dL (13.0-16.5); Immature Granulocytes Count 0.050 X10^3/uL (0.0-0.0); Mean Corp Hgb Conc 30.5 g/dL (32-36); Mean Corpuscular Volume 72.1 fL (80-94); Mean Platelet Vol. 8.8 fl (6.2-12.0); NRBC Flagged by Analyzer 0 % (0-5); POSITIVE MORPHOLOGY YES; Platelet Count 367 K/mm3 (150-450); RBC Distribution Width CV 20.3 % (11.6-14.6); RBC Distribution Width SD 51.1 fl (35.1-43.9); Red Blood Count 5.41 M/mm3 (4.6-6.2); White Blood Count 16.0 K/mm3 (4.4-11.0)
[2024-11-30 03:46] LABS: Differential Indicated SCAN CRITERIA MET
[2024-11-30 04:13] LABS: Anisocytosis 2+; Differential Comment SCANNED
[2024-11-30 04:14] LABS: Tear Drop Cell 1+
[2024-11-30 04:33] LABS: AST(SGOT) 34 U/L (<=37); Alanine Aminotransfer ALT/SGPT 28 U/L (<=46); Albumin, Serum 3.7 g/dL (3.4-4.8); Alkaline Phosphatase 154 U/L (40-129); Anion Gap 11 (5-15); BUN 19 mg/dL (4-19); BUN/Creat Ratio 21.3 RATIO (10-20); Calcium,Total 9.2 mg/dL (7.6-11.0); Carbon Dioxide 22.3 mmol/L (21.0-32.0); Chloride 102 mmol/L (98-108); Estimated Creatinine Clearance 84.33 ml/min (50-250); Globulin 3.1 g/dL (2.2-4.2); Glucose 172 mg/dL (70-99); Potassium 4.8 mmol/L (3.3-5.1)
[2024-11-30] MEDS: Nitroglycerin Infusion 250 ML 24 MG CONT INF (04:46)
[2024-11-30 04:48] LABS: Magnesium 2.2 mg/dL (1.5-2.2)
--- NOTE | 2024-11-30 07:01 | PN.CARD_ITS ---
Subjective Subjective Patient seen and evaluated. Doing better today. Denies chest pain. Objective Data Vital Signs: Vital Signs Temp Pulse Resp BP Pulse Ox O2 Del Method O2 Flow Rate 97.2 F L 64 17 114/64 97 Room Air 2 11/30/24 04:00 11/30/24 06:00 11/30/24 06:00 11/30/24 06:00 11/30/24 06:00 11/30/24 06:00 11/30/24 04:00 Oxygen Flow Rate (L/min) 2 Oxygen Delivery Method Room Air Weight: 211 lb 13.828 oz Body Mass Index (BMI) 28.7 Intake & Output: Intake and Output for Last 24 Hours 11/28/24 11/29/24 11/30/24 23:59 23:59 23:59 Intake Total 231.55 / 237.55 235.55 / 235.55 Output Total 450 / 450 Balance -218.45 / -212.45 235.55 / 235.55 Lab / Micro Data 11/30/24 03:30 11/30/24 03:30 Labs: Laboratory Results - last 24 hr 11/29/24 09:23: Sodium 139, Potassium 4.7, Chloride 102, Carbon Dioxide 26.1, Anion Gap 10, BUN 21 H, Creatinine 0.96, Estim Creat Clear Calc 80.13, Est GFR (MDRD) Non-Af 83, BUN/Creatinine Ratio 21.7 H, Glucose 155 H, Calcium 9.4 11/29/24 10:16: Activated Clotting Time 325 H 11/29/24 16:00: WBC 13.7 H, RBC 5.87, Hgb 12.9 L, Hct 42.7, MCV 72.7 L, MCH 22.0 L, MCHC 30.2 L, RDW Std Deviation 51.9 H, RDW Coeff of Moris 20.8 H, Plt Count 388, MPV 8.9, NT pro BNP II 531 11/29/24 16:18: POC Glucose 168 H 11/30/24 03:30: WBC 16.0 H, RBC 5.41, Hgb 11.9 L, Hct 39.0 L, MCV 72.1 L, MCH 22.0 L, MCHC 30.5 L, RDW Std Deviation 51.1 H, RDW Coeff of Moris 20.3 H, Plt Count 367, MPV 8.8, Immature Gran % (Auto) 0.300, Neut % (Auto) 82.9 H, Lymph % (Auto) 8.7 L, [place] % (Auto) 7.2, Eos % (Auto) 0.4, Baso % (Auto) 0.5, Absolute Neuts (auto) 13.3 H, Absolute Lymphs (auto) 1.40, Nucleated RBC % 0, Differential Comment SCANNED, Platelet Estimate ADEQUATE, Anisocytosis 2+, Tear Drop Cells 1+, Ovalocytes 1+, Sodium 135, Potassium 4.8, Chloride 102, Carbon Dioxide 22.3, Anion Gap 11, BUN 19, Creatinine 0.91, Estim Creat Clear Calc 84.33, Est GFR (MDRD) Non-Af 88, BUN/Creatinine Ratio 21.3 H, Glucose 172 H, Calcium 9.2, Phosphorus 3.7, Magnesium 2.2, Total Bilirubin 1.50 H, AST 34, ALT 28, Alkaline Phosphatase 154 H, Total Protein 6.8, Albumin 3.7, Globulin 3.1, Albumin/Globulin Ratio 1.2 Cardiology Labs/Tests 11/29/24 09:23: Sodium 139, Potassium 4.7, Chloride 102, Carbon Dioxide 26.1, Anion Gap 10, BUN 21 H, Creatinine 0.96, Est GFR (MDRD) Non-Af 83, B UN/Creatinine Ratio 21.7 H, Glucose 155 H, Calcium 9.4 11/29/24 16:00: WBC 13.7 H, RBC 5.87, Hgb 12.9 L, Hct 42.7, MCV 72.7 L, MCH 22.0 L, MCHC 30.2 L, Plt Count 388, MPV 8.9 11/30/24 03:30: WBC 16.0 H, RBC 5.41, Hgb 11.9 L, Hct 39.0 L, MCV 72.1 L, MCH 22.0 L, MCHC 30.5 L, Plt Count 367, MPV 8.8, Immature Gran % (Auto) 0.300, Neut % (Auto) 82.9 H, Lymph % (Auto) 8.7 L, [place] % (Auto) 7.2, Eos % (Auto) 0.4, Baso % (Auto) 0.5, Absolute Neuts (auto) 13.3 H, Nucleated RBC % 0, Sodium 135, Potassium 4.8, Chloride 102, Carbon Dioxide 22.3, Anion Gap 11, BUN 19, Creatinine 0.91, Est GFR (MDRD) Non-Af 88, BUN/Creatinine Ratio 21.3 H, Glucose 172 H, Calcium 9.2, Phosphorus 3.7, Magnesium 2.2, Total Bilirubin 1.50 H Rhythm: EKG: ECHO: Stress Test: Cardiac Cath: PCI: CT Surgery: Holter monitor: EPS: PPM: CXR: Chest CT Scan: Radiography Diagnostic Testing: Radiology Impression Chest X-Ray 11/29/24 16:30 IMPRESSION: Mild right hemidiaphragm elevation is again present. Lungs appear clear of acute disease. No pleural effusion or pneumothorax is noted. The cardiomediastinal silhouette is stable, without evident of cardiomegaly. No evidence of acute cardiopulmonary disease. Reading Location: [address] Physical Exam Const alert, oriented x3 and no apparent distress General Appearance: cooperative HEENT hearing grossly normal bilaterally Head and Scalp: atraumatic Eyes EOMs intact bilaterally Neck General: normal visual inspection Chest inspection of chest normal and palpation of chest normal Resp normal respiratory effort Auscultation: clear to auscultation bilaterally Cardio regular rate, regular rhythm, S1 normal heart sound and S2 normal heart sound Jugular Venous Distention: JVD GI normal to inspection, nondistended, normoactive bowel sounds Extremity normal capillary refill and no pedal edema Peripheral Pulses: Yes pulses 2+ throughout and femoral pulses present Skin no rashes or lesions noted Neuro oriented x3 and CN's II-XII intact bilaterally Psych Appearance: grossly normal and appropriate Assessment & Plan Assessment/Plan (1) CAD (coronary artery disease): PLAN: He has a history of coronary disease he underwent cardiac catheterization yesterday which demonstrated high-grade stenosis noted in the mid left anterior descending artery for which he underwent angioplasty and stenting. There was a diagonal branch which got pinched up he did develop some chest discomfort but is free of chest discomfort this morning. Plan is to put him on oral nitrates and see how he does for a few hours discharge and for outpatient management. He will be on aspirin, Brilinta, and Eliquis for 1 month and then Eliquis and clopidogrel (2) Essential (primary) hypertension: PLAN: His blood pressure is under good control at this time I would not recommend that we make any major changes. (3) Longstanding persistent atrial fibrillation: PLAN: He does have longstanding persistent atrial fibrillation his ventricular response rate is controlled he will remain on the beta-zuly. (4) Hyperlipidemia: QUALIFIERS: Hyperlipidemia type: mixed hyperlipidemia Qualified Code(s): E78.2 - Mixed hyperlipidemia PLAN: He does have a history of hyperlipidemia and will remain on high intensity statin.
[2024-11-30] MEDS: Albuterol 2.5 MG/3 ML VIAL.NEB. INHALATION ×3 (07:13→19:44)
[2024-11-30] MEDS: Budesonide Respules 0.5 MG/2 ML AMPUL.NEB. INHALATION ×2 (07:14→19:43)
[2024-11-30] MEDS: 0.9% Saline Lock 10 ML Syringe IV ×3 (07:34→18:53)
[2024-11-30] MEDS: APIXABAN 5 MG TABLET PO ×2 (09:22→21:18)
[2024-11-30] MEDS: Aspirin E.C. 81 MG Tablet PO (09:26)
--- NOTE | 2024-11-30 10:00 | EKG12_ITS ---
Test Reason : Post PCI Blood Pressure : */* mmHG Vent. Rate : 62 BPM Atrial Rate : * BPM P-R Int : * ms QRS Dur : 76 ms QT Int : 438 ms P-R-T Axes : * -50 46 degrees QTcB Int : 444 ms Atrial fibrillation with premature ventricular or aberrantly conducted complexes Left axis deviation Pulmonary disease pattern Abnormal ECG When compared with ECG of 29-Nov-2024 12:33, MANUAL COMPARISON REQUIRED DATA IS UNCONFIRMED Confirmed by MEHDI BULLARD, FCO ([id number]), art editor DAPHNE PINEDA ([id number]) on 12/01/2024 7:17:45 AM Referred By: Fco Aguilera Confirmed By: FCO AGUILERA MD
--- NOTE | 2024-11-30 12:56 | RAD_ITS ---
PROCEDURE: ABD DECUB AND/OR ERECT(PORTABL 11/30/2024 REASON FOR EXAM: ABD PAIN/NAUSEA TECHNIQUE: ABD DECUB AND/OR ERECT(PORTABL COMPARISON: None FINDINGS: Bowel gas: Moderate constipation identified with fecal material distributed throughout the colon. No evidence of bowel obstruction. Calcifications: No suspicious calcifications. Bones: Degenerative changes of sacroiliac joints. Status post bilateral total hip replacement. Other: Status post cholecystectomy. RAD/Abd Decub and/or Erect(Portabl IMPRESSION: Moderate amount of fecal material is seen in the colon. Reading Location: [facility]
--- NOTE | 2024-11-30 13:34 | CHAPLAIN ---
Type of Pastoral Visit _x__ Initial Visit ___ Follow-up Visit ___ On-call Visit ___ General Patient Visit ___ Spiritual Assessment ___ Family Conference ___ Bereavement ___ Rapid Response ___ Code Blue ___ Other (describe below) Pastoral Care Referral From _x__ Patient ___ Family ___ Nurse ___ Physician ___ Network Liaison ___ Meter Record Clerk ___ Other (describe below) Sacrament/Intervention _x__ Active listening ___ Anointing ___ Protestant ___ Bereavement ___ Communion ___ Julianne exploration ___ _x__ Life review _x__ Prayer ___ Reconciliation ___ Sacrament of Sick _x__ Supportive presence ___ Wedding ___ Other (describe below) Pastoral Comments patient exhibiting some anxiety as he makes frequent inquiries for support and presence among the staff; pt admits that he is anxious and states I didn't know it would be like this; explored thoughts, words, and feelings of patient; brought attention to what can be seen as the positives in his life; attempts made to refocus patient on good thoughts; pt began to talk about his very large garden and that was a topic that brought some of those goals; pt is not anabaptist but I believe in God and he welcomed a prayer to be spoken; presence was important
--- NOTE | 2024-11-30 14:08 | PCM.PN.HOSP ---
Reason for Visit Reason for Visit: Diagnoses Mixed hyperlipidemia (11/29/24) Essential (primary) hypertension (11/29/24) Atherosclerotic heart disease of [place] coronary artery without angina pectoris (11/29/24) Longstanding persistent atrial fibrillation (11/29/24) Acute diastolic (congestive) heart failure (11/29/24) Other forms of dyspnea (11/29/24) Encounter for therapeutic drug level monitoring (11/29/24) assisted (current) use of anticoagulants (11/29/24) Subjective Subjective Has been complaining of abdominal pain and nausea. Objective Data Objective Data Vital Signs: Vital Signs Temp Pulse Resp BP Pulse Ox O2 Del Method O2 Flow Rate 36.5 C L 67 17 128/78 H 100 Room Air 100 11/30/24 10:41 11/30/24 12:02 11/30/24 12:02 11/30/24 12:00 11/30/24 12:02 11/30/24 12:49 11/30/24 12:49 Oxygen Flow Rate (L/min) 100 Oxygen Delivery Method Room Air Weight: 96.1 kg Body Mass Index (BMI) 28.7 Intake & Output: Intake and Output for Last 24 Hours 11/28/24 11/29/24 11/30/24 23:59 23:59 23:59 Intake Total 231.55 / 237.55 539.75 / 539.75 Output Total 450 / 450 700 / 700 Balance -218.45 / -212.45 -160.25 / -160.25 Lab / Micro Data 11/30/24 03:30 11/30/24 03:30 Labs: Laboratory Results - last 24 hr 11/29/24 16:00: WBC 13.7 H, RBC 5.87, Hgb 12.9 L, Hct 42.7, MCV 72.7 L, MCH 22.0 L, MCHC 30.2 L, RDW Std Deviation 51.9 H, RDW Coeff of Moris 20.8 H, Plt Count 388, MPV 8.9, NT pro BNP II 531 11/29/24 16:18: POC Glucose 168 H 11/30/24 03:30: WBC 16.0 H, RBC 5.41, Hgb 11.9 L, Hct 39.0 L, MCV 72.1 L, MCH 22.0 L, MCHC 30.5 L, RDW Std Deviation 51.1 H, RDW Coeff of Moris 20.3 H, Plt Count 367, MPV 8.8, Immature Gran % (Auto) 0.300, Neut % (Auto) 82.9 H, Lymph % (Auto) 8.7 L, [place] % (Auto) 7.2, Eos % (Auto) 0.4, Baso % (Auto) 0.5, Absolute Neuts (auto) 13.3 H, Absolute Lymphs (auto) 1.40, Nucleated RBC % 0, Differential Comment SCANNED, Platelet Estimate ADEQUATE, Anisocytosis 2+, Tear Drop Cells 1+, Ovalocytes 1+, Sodium 135, Potassium 4.8, Chloride 102, Carbon Dioxide 22.3, Anion Gap 11, BUN 19, Creatinine 0.91, Estim Creat Clear Calc 84.33, Est GFR (MDRD) Non-Af 88, BUN/Creatinine Ratio 21.3 H, Glucose 172 H, Hemoglobin A1c 8.5 H, Calcium 9.2, Phosphorus 3.7, Magnesium 2.2, Total Bilirubin 1.50 H, AST 34, ALT 28, Alkaline Phosphatase 154 H, Total Protein 6.8, Albumin 3.7, Globulin 3.1, Albumin/Globulin Ratio 1.2 11/30/24 07:38: POC Glucose 168 H 11/30/24 12:34: POC Glucose 155 H Radiography Diagnostic Testing: Radiology Impression Echocardiogram 11/29/24 16:19 Interpretation Summary Normal LV size. Left ventricular systolic function is normal. Mild concentric left ventricular hypertrophy. The left ventricular ejection fraction is 60 %. The right atrium is mildly enlarged. Stage 3 diastolic dysfunction. Ordering Physician: Margarita Levy Referring Physician: Jovany Brush Chi Performed By: Mamie Del Rosario, ROLLY, RVT Chest X-Ray 11/29/24 16:30 IMPRESSION: Mild right hemidiaphragm elevation is again present. Lungs appear clear of acute disease. No pleural effusion or pneumothorax is noted. The cardiomediastinal silhouette is stable, without evident of cardiomegaly. No evidence of acute cardiopulmonary disease. Reading Location: [id number] Abdomen X-Ray 11/30/24 12:56 IMPRESSION: Moderate amount of fecal material is seen in the colon. [facility] Physical Exam Const alert Constitutional Narrative: dysarthria. HEENT head/scalp atraumatic and moist oral mucous membranes HEENT Narrative: right facial droop Resp normal respiratory effort, no retractions, no use of accessory muscles and clear to auscultation bilaterally Cardio regular rate, regular rhythm, S1 normal heart sound and S2 normal heart sound GI normal to inspection, nondistended, normoactive bowel sounds, soft to palpation, non-tender and non-distended Extremity normal to inspection and full ROM Neuro Sensorium / Orientation: awake and alert Assessment & Plan Assessment/Plan (1) Stented coronary artery: PLAN: weaned off nitroglycerin You ticagrelor, aspirin apixaban. To be continued for 1 month and then apixaban (2) Abdominal pain: PLAN: Abdominal x-ray performed and showed no bowel obstruction or ileus. Noted stool. Unclear if patient is constipated we will give him museum citrate to see if that would help. PLAN: Plan Paroxysmal atrial fibrillation: Continue with metoprolol and apixaban COPD: Not in exacerbation. HFpEF: Stable. GERD: Continue PPI. Chronic pain: Complicates care and recovery. Buprenorphine patch. VTE prophylaxis: Not indicated patient is already apixaban Charges/Coding Visit Charges Inpatient E&M: 29771 Subs Hosp L2
[2024-11-30] MEDS: Magnesium Citrate 300 ML 150 ML PO (15:52)
[2024-11-30] MEDS: TICAGRELOR 90 MG TABLET PO (21:19)
[2024-12-01 03:15] VITALS: BP 132/73; PULSE 64; RESP 15; TEMP 36.6; O2SAT 100
[2024-12-01 05:38] VITALS: BMI 28.0
--- NOTE | 2024-12-01 07:09 | PN.HOSP_ITS ---
Reason for Visit Reason for Visit: Diagnoses Mixed hyperlipidemia (11/29/24) Essential (primary) hypertension (11/29/24) Atherosclerotic heart disease of [place] coronary artery without angina pectoris (11/29/24) Longstanding persistent atrial fibrillation (11/29/24) Acute diastolic (congestive) heart failure (11/29/24) Other forms of dyspnea (11/29/24) Unspecified abdominal pain (11/29/24) Encounter for therapeutic drug level monitoring (11/29/24) care home (current) use of anticoagulants (11/29/24) Presence of coronary angioplasty implant and graft (11/29/24) Subjective Subjective Still feels short of breath. Though patient is off oxygen and his pulse ox is in the high 90s. Abdomen is feeling better after numerous bowel movements. Objective Data Objective Data Vital Signs: Vital Signs Temp Pulse Resp BP Pulse Ox O2 Del Method O2 Flow Rate 36.6 C 64 15 132/73 H 100 Nasal Cannula 2 12/01/24 03:15 12/01/24 03:15 12/01/24 03:15 12/01/24 03:15 12/01/24 03:15 12/01/24 03:19 12/01/24 03:19 Oxygen Flow Rate (L/min) 2 Oxygen Delivery Method Nasal Cannula Weight: 93.7 kg Body Mass Index (BMI) 28.0 Intake & Output: Intake and Output for Last 24 Hours 11/29/24 11/30/24 12/01/24 23:59 23:59 23:59 Intake Total 231.55 / 237.55 939.75 / 939.75 Output Total 450 / 450 1200 / 1400 500 / 500 Balance -218.45 / -212.45 -260.25 / -460.25 -500 / -500 Lab / Micro Data 11/30/24 03:30 11/30/24 03:30 Labs: Laboratory Results - last 24 hr 11/30/24 03:30: Hemoglobin A1c 8.5 H 11/30/24 07:38: POC Glucose 168 H 11/30/24 12:34: POC Glucose 155 H 11/30/24 16:31: POC Glucose 163 H Radiography Diagnostic Testing: Radiology Impression Echocardiogram 11/29/24 16:19 Interpretation Summary Normal LV size. Left ventricular systolic function is normal. Mild concentric left ventricular hypertrophy. The left ventricular ejection fraction is 60 %. The right atrium is mildly enlarged. Stage 3 diastolic dysfunction. Ordering Physician: Margarita Levy Referring Physician: Jovany Brush Chi Performed By: Mamie Del Rosario, MISSAELCS, RVT Abdomen X-Ray 11/30/24 12:56 IMPRESSION: Moderate amount of fecal material is seen in the colon. Reading Location: [place] [id number] Physical Exam Const alert and no apparent distress Constitutional Narrative: Anxious. Short shallow breathing. Pulse ox remained 97 to 98% on room air during encounter. HEENT head/scalp atraumatic and moist oral mucous membranes Resp normal respiratory effort, no retractions, no use of accessory muscles and clear to auscultation bilaterally Cardio regular rate, regular rhythm, S1 normal heart sound and S2 normal heart sound GI normal to inspection, nondistended, normoactive bowel sounds, soft to palpation, non-tender and non-distended Extremity normal to inspection and full ROM Assessment & Plan Assessment/Plan (1) Stented coronary artery: PLAN: weaned off nitroglycerin Continue ticagrelor, aspirin, apixaban. To be continued for 1 month and then apixaban and clopidogrel (2) Abdominal pain: PLAN: Improved. Secondary to constipation. Abdominal x-ray performed and showed no bowel obstruction or ileus. Noted stool. Pt received 1 x dose of Mag citrate and did have several bowel movements PLAN: Plan Paroxysmal atrial fibrillation: Continue with metoprolol and apixaban COPD: Not in exacerbation. HFpEF: Stable. GERD: Continue PPI. Chronic pain: Complicates care and recovery. Buprenorphine patch. 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 VTE prophylaxis: Not indicated patient is already apixaban Discharge home.
[2024-12-01] MEDS: Albuterol 2.5 MG/3 ML VIAL.NEB. INHALATION (07:13)
[2024-12-01] MEDS: Budesonide Respules 0.5 MG/2 ML AMPUL.NEB. INHALATION (07:13)
[2024-12-01 07:14] VITALS: PULSE 63; RESP 18; O2SAT 97
--- NOTE | 2024-12-01 07:25 | PCM.PN.CARD ---
Subjective Subjective Patient seen and evaluated. Doing well. No cardiac complaints. Objective Data Vital Signs: Vital Signs Temp Pulse Resp BP Pulse Ox O2 Del Method O2 Flow Rate 97.8 F 63 18 132/73 H 97 Room Air 2 12/01/24 03:15 12/01/24 07:14 12/01/24 07:14 12/01/24 03:15 12/01/24 07:14 12/01/24 07:14 12/01/24 03:19 Oxygen Flow Rate (L/min) 2 Oxygen Delivery Method Room Air Weight: 206 lb 9.17 oz Body Mass Index (BMI) 28.0 Intake & Output: Intake and Output for Last 24 Hours 11/29/24 11/30/24 12/01/24 23:59 23:59 23:59 Intake Total 231.55 / 237.55 939.75 / 939.75 Output Total 450 / 450 1200 / 1400 500 / 500 Balance -218.45 / -212.45 -260.25 / -460.25 -500 / -500 Lab / Micro Data 11/30/24 03:30 11/30/24 03:30 Labs: Laboratory Results - last 24 hr 11/30/24 03:30: Hemoglobin A1c 8.5 H 11/30/24 07:38: POC Glucose 168 H 11/30/24 12:34: POC Glucose 155 H 11/30/24 16:31: POC Glucose 163 H Cardiology Labs/Tests 11/30/24 03:30: Hemoglobin A1c 8.5 H Rhythm: EKG: ECHO: Stress Test: Cardiac Cath: PCI: CT Surgery: Holter monitor: EPS: PPM: CXR: Chest CT Scan: Radiography Diagnostic Testing: Radiology Impression Echocardiogram 11/29/24 16:19 Interpretation Summary Normal LV size. Left ventricular systolic function is normal. Mild concentric left ventricular hypertrophy. The left ventricular ejection fraction is 60 %. The right atrium is mildly enlarged. Stage 3 diastolic dysfunction. Ordering Physician: Margarita Levy Referring Physician: Gonsalo, Jovany Chi Performed By: Mamie Del Rosario, RDCS, RVT Abdomen X-Ray 11/30/24 12:56 IMPRESSION: Moderate amount of fecal material is seen in the colon. Reading Location: [place] [id number] Physical Exam Const alert Constitutional Narrative: dysarthria. HEENT head/scalp atraumatic and moist oral mucous membranes HEENT Narrative: Mild facial droop Resp normal respiratory effort, no retractions, no use of accessory muscles and clear to auscultation bilaterally Cardio S1 normal heart sound and S2 normal heart sound Rhythm: abnormal rhythm irregularly irregular GI normal to inspection, nondistended, normoactive bowel sounds, soft to palpation, non-tender and non-distended Extremity normal to inspection and full ROM Neuro Sensorium / Orientation: awake and alert Assessment & Plan Assessment/Plan (1) CAD (coronary artery disease): PLAN: He has a history of coronary disease he underwent cardiac catheterization yesterday which demonstrated high-grade stenosis noted in the mid left anterior descending artery for which he underwent angioplasty and stenting. There was a diagonal branch which got pinched up he did develop some chest discomfort but is free of chest discomfort this morning. Plan is to put him on oral nitrates and see how he does. He will be on aspirin, Brilinta, and Eliquis for 1 month and then Eliquis and clopidogrel (2) Essential (primary) hypertension: PLAN: His blood pressure is under good control at this time I would not recommend that we make any major changes. (3) Longstanding persistent atrial fibrillation: PLAN: He does have longstanding persistent atrial fibrillation his ventricular response rate is controlled he will remain on the beta-zuly. Eliquis can be resumed this morning. (4) Hyperlipidemia: QUALIFIERS: Hyperlipidemia type: mixed hyperlipidemia Qualified Code(s): E78.2 - Mixed hyperlipidemia PLAN: He does have a history of hyperlipidemia and will remain on high intensity statin. PLAN: Plan From the cardiac standpoint he can be discharged for outpatient follow-up.
[2024-12-01 08:44] VITALS: BP 117/87; PULSE 67; RESP 17; TEMP 36.2; O2SAT 97
[2024-12-01 09:41] VITALS: PULSE 68
[2024-12-01] MEDS: APIXABAN 5 MG TABLET PO (09:41)
[2024-12-01] MEDS: TICAGRELOR 90 MG TABLET PO (09:41)
[2024-12-01] MEDS: Aspirin E.C. 81 MG Tablet PO (09:41)
--- NOTE | 2024-12-01 09:55 | DS.PCM_ITS ---
Providers Date of Admission: 11/29/24 Primary Care Physician: Dr. Jovany Brush MD Consultations 11/29/24 15:06 Consult: Hospitalist Routine Consulting Provider: Margarita Levy Reason for Consult: medical management and admission EMERGENT Consult: No MD Notified: Yes Date Notified: 11/29/24 Time Notified: 15:07 Method of Notification: Text Reason For Visit: Atherosclerotic heart disease of [place] coronary a Diagnosis Discharge Diagnosis (1) Stented coronary artery: Status: Chronic Code(s): Z95.5 - Presence of coronary angioplasty implant and graft Plan: weaned off nitroglycerin Continue ticagrelor, aspirin, apixaban. To be continued for 1 month and then apixaban and clopidogrel (2) Abdominal pain: Status: Acute Code(s): R10.9 - Unspecified abdominal pain Plan: Improved. Secondary to constipation. Abdominal x-ray performed and showed no bowel obstruction or ileus. Noted stool. Pt received 1 x dose of Mag citrate and did have several bowel movements Plan Paroxysmal atrial fibrillation: Continue with metoprolol and apixaban COPD: Not in exacerbation. HFpEF: Stable. GERD: Continue PPI. Chronic pain: Complicates care and recovery. Buprenorphine patch. 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 VTE prophylaxis: Not indicated patient is already apixaban Discharge home. Medications at Discharge Home Medications fluticasone fur. 100 mcg-umeclid 62.5 mcg-vilant 25 mcg inhalat.powder 1 inh inhalation DAILY 09/06/21 duloxetine 60 mg capsule,delayed release 60 mg PO DAILY 04/25/22 ondansetron HCl 4 mg tablet 4 mg PO QHS PRN nausea and vomiting 07/17/23 albuterol sulfate 90 mcg/actuation aerosol inhaler 1 inh inhalation Q8H PRN shortness of breath or wheezing 10/31/23 fluticasone propionate 50 mcg/actuation nasal spray,suspension 1 spray intranasal 10/31/23 metoprolol tartrate 50 mg tablet 50 mg PO BID 10/31/23 omeprazole 40 mg capsule,delayed release 40 mg PO BID 10/31/23 fexofenadine 180 mg tablet 180 mg PO Q24H 08/20/24 pregabalin 50 mg capsule (Lyrica) 50 mg PO BID 08/20/24 isosorbide mononitrate 30 mg tablet,extended release 24 hr 30 mg PO DAILY #90 TABLETS 08/30/24 apixaban 5 mg tablet (Eliquis) 5 mg PO BID 09/17/24 atorvastatin 40 mg tablet 40 mg PO QHS 09/17/24 budesonide 160 mcg-glycopyr 9 mcg-formot 4.8 mcg/actuation HFA inhaler (Breztri Aerosphere) 2 inh inhalation BID 09/17/24 buprenorphine 20 mcg/hour weekly transdermal patch 1 patch transdermal QWEEK 09/17/24 furosemide 40 mg tablet (Lasix) 40 mg PO BID #90 tabs 09/17/24 lactobacillus combination no.9 [Adult 50 Plus Probiotic] PO DAILY 09/17/24 sucralfate 1 gram tablet PO 09/17/24 spironolactone 25 mg tablet 25 mg PO QDAY #30 tabs 09/21/24 empagliflozin 10 mg tablet (Jardiance) 10 mg PO QAM #30 tabs 10/27/24 aspirin 81 mg tablet,delayed release 81 mg PO BREAKFAST #0 tabs 12/01/24 ticagrelor 90 mg tablet (Brilinta) 90 mg PO BID #60 tabs 12/01/24 Hospital Course Operations None Procedures Cardiac catheterization Summary of Care Provided Minutes Spent on Discharge: 32 Hospital Course: Patient underwent a left heart catheterization on the where he had successful PCI to high-grade lesion involving the mid LAD. Additionally there is noted to be a sidebranch which is a diagonal branch was not intervened upon given the small size. Patient did have chest pain afterwards and was admitted to the intensive care unit and with patient was placed on a nitroglycerin drip. Eventually that was weaned off chest pain did overall improved. He did have abdominal pain did have a abdominal x-ray that did show constipation. Patient did receive magnesium citrate which she did have several bowel movements thereafter and his abdomen is feeling better. Patient does complain of being short of breath but he is taking short shallow breaths but his pulse ox is actually normal. Patient will be discharged home in stable condition with follow-up with cardiology. Weight / BMI Weight Weight: 93.7 kg Body Mass Index (BMI) 28.0 ABG / Lab / Microbiology Data 11/30/24 03:30 11/30/24 03:30 Laboratory: Laboratory Results - last 24 hr 11/30/24 03:30: Hemoglobin A1c 8.5 H 11/30/24 12:34: POC Glucose 155 H 11/30/24 16:31: POC Glucose 163 H Radiography Diagnostic Testing: Radiology Impression Echocardiogram 11/29/24 16:19 Interpretation Summary Normal LV size. Left ventricular systolic function is normal. Mild concentric left ventricular hypertrophy. The left ventricular ejection fraction is 60 %. The right atrium is mildly enlarged. Stage 3 diastolic dysfunction. Ordering Physician: Margarita Levy Referring Physician: Jovany Brush Chi Performed By: Mamie Del Rosario, RDCS, RVT Abdomen X-Ray 11/30/24 12:56 IMPRESSION: Moderate amount of fecal material is seen in the colon. Reading Location: [place] [address] D/C Instructions Discharge Diet: Low fat / Low cholesterol DC O2, CPAP, BIPAP Needs Home O2 Discharge instructions: No Meaningful Use Info Meaningful Use Meaningful Use Diagnoses (Choose all that apply): None applicable Ischemic Stroke Statin Dosing Therapy Reference: STATIN DOSE THERAPY REFERENCE: * Patients > 75 years receive moderate or high dose statin therapy. * Patients 75 years or YOUNGER should receive HIGH intensity statin dose unless contraindicated. You will be required to document reason for non-treatment if statin daily dose does not meet guidelines. HIGH DOSE STATIN THERAPY DAILY Atorvastatin > than or = to 40 mg Rosuvastatin > than or = to 20 mg Amlodipine + Atorvastatin > than or = to 2.5/40 mg Ezetimibe + Simvastatin 10/80 mg Simvastatin 80mg Discharge Plan Admission Admit Date/Time: 11/29/24 14:58 Primary Reason for Your Visit: status PCI Attending Provider: Fco Aguilera Primary Care Provider: Jovany Brush Chi Consulting Providers: Maikel Liang; Hira Mathias Discharge Orders/Prescriptions Prescriptions: New aspirin 81 mg Tablet,Delayed Release (Dr/Ec) 81 mg PO BREAKFAST Qty: 0 0RF ticagrelor [Brilinta] 90 mg Tablet 90 mg PO BID Qty: 60 0RF Continued lijwbmpiluk-glnkuujbd-xtwfruso 100-62.5-25 mcg blister with device 1 inh inhalation DAILY duloxetine 60 mg capsule,delayed release(DR/EC) 60 mg PO DAILY ondansetron HCl 4 mg tablet 4 mg PO QHS PRN (Reason: nausea and vomiting) omeprazole 40 mg capsule,delayed release(DR/EC) 40 mg PO BID metoprolol tartrate 50 mg tablet 50 mg PO BID albuterol sulfate 90 mcg/actuation HFA aerosol inhaler 1 inh inhalation Q8H PRN (Reason: shortness of breath or wheezing) fluticasone propionate 50 mcg/actuation spray,suspension 1 spray intranasal fexofenadine 180 mg tablet 180 mg PO Q24H pregabalin [Lyrica] 50 mg capsule 50 mg PO BID Eliquis 5 mg tablet 5 mg PO BID sucralfate 1 gram tablet PO buprenorphine 20 mcg/hour patch weekly 1 patch transdermal QWEEK atorvastatin 40 mg tablet 40 mg PO QHS lactobacillus combination no.9 [Adult 50 Plus Probiotic] PO DAILY Breztri Aerosphere 160-9-4.8 mcg/actuation HFA aerosol inhaler 2 inh inhalation BID furosemide [Lasix] 40 mg tablet 40 mg PO BID Qty: 90 3RF spironolactone 25 mg tablet 25 mg PO QDAY Qty: 30 3RF isosorbide mononitrate 30 mg tablet extended release 24 hr 30 mg PO DAILY Qty: 90 3RF Jardiance 10 mg tablet 10 mg PO QAM Qty: 30 11RF Referrals / Follow Up: [facility] [Provider Group] - 12/16/24 2:30 pm Jovany Brush Chi, MD [Primary Care Provider] - Within 2 Weeks Disposition Disposition (needs filled in before D/C Order can be placed): Home, Self Care Charges/Coding Visit Charges Inpatient E&M: 98871 Disch Hosp >30min
--- NOTE | 2024-12-01 10:00 | EKG12_ITS ---
Test Reason : PCI Blood Pressure : */* mmHG Vent. Rate : 56 BPM Atrial Rate : * BPM P-R Int : * ms QRS Dur : 76 ms QT Int : 434 ms P-R-T Axes : * -47 54 degrees QTcB Int : 418 ms Atrial fibrillation with slow ventricular response with premature ventricular or aberrantly conducted complexes Left axis deviation Pulmonary disease pattern Abnormal ECG When compared with ECG of 30-Nov-2024 05:14, MANUAL COMPARISON REQUIRED DATA IS UNCONFIRMED Confirmed by MEHDI BULLARD, FCO ([id number]), script editor DAPHNE PINEDA ([id number]) on 12/02/2024 6:42:49 AM Referred By: Fco Aguilera Confirmed By: FCO AGUILERA MD
--- NOTE | 2024-12-01 10:19 | CASEMGMT ---
Addendum entered by Toby Myles 12/01/24 12:22: Jodee reports that SOC is now solidified for Friday due to the pt's PCP appt being tomorrow. CM DC info updated. Addendum entered by Toby Myles 12/01/24 10:49: Dr Brush's office returns call and states that they are able to see the pt tomorrow at 1600. DANIELE ZIEGLER to the pt room at this time. Updated the pt with the aforementioned information. Pt states that he is agreeable and denies further DC needs now. Addendum entered by Toby Myles 12/01/24 10:36: Jodee from [facility] states that they are able to accept with a SOC projected for tomorrow. Jodee states that she has been in contact with Dr Brush's office and that they accepted a SOC date for tomorrow. However, the pt is still in the need of a follow up appt. TC to Dr Brush's office at this time, no answer. VM left. Awaiting return call. Original Note: DANIELE ZIEGLER Assessment Face to Face with patient for initial transition planning/care coordination assessment. DANIELE ZIEGLER introduced self and role at [facility], pt voices understanding. Pt is A&Ox4 and is resting comfortably in the chair and is calm. Care providers, pharmacy, and demographics verified. Admitting dx: Atherosclerotic Disease, ABD Pain LACE Strata: 1 PCP: [facility] Specialists: Argelia OLIVAREZ (PM) Preferred Pharmacy: [facility]. Pt has a new order for Brilinta. TC to [facility] who states that the pt has a 0$ copay and that they will deliver the pts meds to his bed today. Insurance: [employer] [facility] Prescription Benefit: Yes LNOK: Jenny (Daughter) - Notified pt has an order for DC placed. Jenny states that she will be in to pick the pt up around 1300 today. Living Arrangements: Pt lives alone in a 2 story home with a FFSU and 3 steps to enter with handrails ADLs/IADLs: Pt states that he is indep at baseline. Current 6-Click score is 19, no PT ordered. Transportation: Daughter DME: Cane, FWW, Shower chair, BP Machine, pox HHC/SNF: Denies hx. Pt states that he would like HHC. See below Pt?s goal: Home with HHC Plan: Home with HHC, daughter support, P2Y rx, and follow up with cardiology as an OP on 12/16 as scheduled. At this time, the pt denies wanting to review a list of local in-network [facility] agencies and states that he prefers [facility]. Pt educated on home bound status. Pt states that he qualifies. TC to [facility] and referral made for SN, PT, and OT. Awaiting return response. Noted that the pt is a pt of Dr Brush and will require a follow up appt with his PCP prior to the HH starting. CM to follow. Pt RN and Dr Stew lewis. Sheila Myles RN CM
[2024-12-01 12:00] VITALS: BP 129/70; PULSE 69; RESP 17; TEMP 36; O2SAT 97
[2024-12-01] MEDS: 0.9% Saline Lock 10 ML Syringe IV (12:05)
--- OUTSIDE RECORDS SUMMARY | 2024-12-02 03:08 | XMS RPT_ITS | CCD ---
Author Organization [facility] Inform ion Partnership 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 Fco Aguilera Attending Provider [phone] Leroy MENTAL HEALTH NURSE PRACTITIONER, MENTAL HEALTH NURSE PRACTITIONER-C Marcos Primary Care Provider [phone] LEROY LUMBER TAILER-JOSHUA, MARCOS Primary Care Physician [phone] BALTES LUMBER TAILER-RIM BUSTER, MARCOS Primary Care Unavailabl e BALTES LUMBER TAILER-RIM BUSTER, MARCOS Attending Unavailabl e BALTES LUMBER TAILER-RIM BUSTER, MARCOS Primary Care Unavailabl e BALTES LUMBER TAILER-RIM BUSTER, MARCOS Attending Unavailabl e BALTES LUMBER TAILER-RIM BUSTER, MARCOS Attending Unavailabl e BALTES LUMBER TAILER-RIM BUSTER, MARCOS Primary Care Unavailabl e BALTES LUMBER TAILER-RIM BUSTER, MARCOS Primary Care Unavailabl e BALTES LUMBER TAILER-RIM BUSTER, MARCOS Attending Unavailabl e BALTES LUMBER TAILER-RIM BUSTER, MARCOS Primary Care Unavailabl e BALTES LUMBER TAILER-RIM BUSTER, MARCOS Attending Unavailabl e BALTES LUMBER TAILER-RIM BUSTER, MARCOS Primary Care Unavailabl e BALTES LUMBER TAILER-RIM BUSTER, MARCOS Attending Unavailabl e BALTES LUMBER TAILER-RIM BUSTER, MARCOS Primary Care Unavailabl e BALTES LUMBER TAILER-RIM BUSTER, MARCOS Attending Unavailabl e BALTES LUMBER TAILER-RIM BUSTER, MARCOS Attending Unavailabl e BALTES LUMBER TAILER-RIM BUSTER, MARCOS Primary Care Unavailabl e JENNIFER CABELLO DO Attending Unavailable BALTES LUMBER TAILER-RIM BUSTER, MARCOS Primary Care Unavailabl e Baltes MENTAL HEALTH NURSE PRACTITIONER-C, Marcos Primary Care Provider Baltes MENTAL HEALTH NURSE PRACTITIONER-C, Marcos Referring Provider Garth WADE Maikel Attending Provider [phone] Garth WADE Maikel Referring Provider [phone] Gonsalo BULLARD, Dr. Jovany Armas Primary Care Provider Willy BULLARD, Dr. Eagle Attending Provider [phone] Gonsalo BULLARD, Dr. Jovany Armas Attending Provider [phone] Gonsalo BULLARD, Dr. Jovany Armas Referring Provider MARIANELA LUMBER TAILER-RIM BUSTER, JULIET M Admitting Unavaila ble PHYSICIAN, NONE Primary Care Unavailable CHRIS BULLARD, IFEANYI Attending Unavailable BALTES LUMBER TAILER-RIM BUSTER, MARCOS Attending Unavailabl e PHYSICIAN, NONE Primary Care Unavailable CRISTEL LUMBER TAILER-AREA COUNSELOR, SONAM Tang Attending Unavail able BALTES LUMBER TAILER-RIM BUSTER, MARCOS Primary Care Unavailabl e BALTES LUMBER TAILER-RIM BUSTER, MARCOS Attending Unavailabl e BALTES LUMBER TAILER-RIM BUSTER, MARCOS Primary Care Unavailabl e BALTES LUMBER TAILER-RIM BUSTER, MARCOS Attending Unavailabl e BALTES LUMBER TAILER-RIM BUSTER, MARCOS Primary Care Unavailabl e Demiter, Maikel Referring Unavailable Gonsalo, Jovany Chi Primary Care Unavailable Demiter, Maikel Attending Unavailable Demiter, Maikel Referring Unavailable Demiter, Maikel Attending Unavailable Baltes, Marcos Primary Care Unavailable Sibilia, Breanne V Referring Unavailable Sibilia, Breanne V Attending Unavailable Baltes, Marcos Primary Care Unavailable Gonsalo, Jovany Chi Primary Care Unavailable Sibilia, Breanne V Referring Unavailable Sibilia, Breanne V Attending Unavailable Gonsalo, Jovany Chi Primary Care Unavailable Willy, Fco Referring Unavailable Willy, Fco Attending Unavailable Demiter, Maikel Consulting Unavailable Demiter, Maikel Referring Unavailable Gonsalo, Jovany Chi Primary Care Unavailable Demiter, Maikel Attending Unavailable Gonsalo, Jovany Chi Primary Care Unavailable Gonsalo, Jovany Chi Referring Unavailable Demiter, Maikel Attending Unavailable Gonsalo, Jovany Chi Primary Care Unavailable Demiter, Maikel Attending Unavailable Baltes, Marcos Referring Unavailable Demiter, Maikel Attending Unavailable Baltes, Marcos Referring Unavailable Baltes, Marcos Primary Care Unavailable Demiter, Maikel Referring Unavailable Gonsalo, Jovany Chi Primary Care Unavailable Willy, [place] Attending Unavailable Gonsalo, Jovany Chi Referring Unavailable Gonsalo, Jovany Chi Attending Unavailable Gonsalo, Jovany Chi Primary Care Unavailable Maikel Liang Referring Unavailable Gonsalo, Jovany Chi Primary Care Unavailable Maikel Liang Attending Unavailable Willy BULLARD, Dr. Eagle Referring Provider Maikel Ramirez Other Provider Dr. Hira Mathias DO Other Provider Willy BULLARD, Dr. Eagle Other Provider Edgar BULLARD, Dr. Adams Attending Provider Cam BULLARD, Dr. Avila Attending Provider Cam BULLARD, Dr. Avila Other Provider Allergies Allergy Classification Reported Allergen(s) Allergy Type Date of Onset Reaction(s) Facility (16 sources) bacitracin / neomycin / polymyxin b; Translations: [bacitracin/neom ycin/polymyxin B topical] Drug Allergy UNSURE [facility] (20 sources) Codeine; Translations: [codeine] Drug Allergy 2 DIFFICULTY BREATHING, HEART RATE IRREGULAR [facility] (16 sources) Isosorbide; Translations: [isosorbide mononitrate] Drug Allergy Headache (finding) [facility] (16 sources) rivaroxaban; Translations: [rivaroxaban] Drug Allergy BLEEDING [facility] (9 sources) rivaroxaban Drug Allergy 2 Bleeding [facility] (1 source) Codeine Drug Allergy 5 [facility] (1 source) rivaroxaban Drug Allergy 5 [facility] Medications Current Medications Medication Drug Class(es) Dates Sig (Normalized) Sig (Original) acetaminophen 500 mg oral tablet (3 sources) Start: 01-20-2024 acetaminophen 500 mg oral tablet Dose : 1,000 mg = 2 tab(s), Oral, TID, PRN pain or fever, 0 Refill(s) Start Date: 01/20/24 Status: Ordered [id number] 200 actuat albuterol 0.09 mg/actuat metered dose inhaler (7 sources) beta2-Adrenergic Agonist Start: 10-31-2023 Albuterol Sulfate 90 mcg/actuation HFA aerosol inhaler Active 1 NMA INHALATION Q8H as needed for shortness of breath or wheezing October 31, 2023 12:00am Start: 10-31-2023 Albuterol Sulf ate 90 mcg/actuation HFA aerosol inhaler Active INHALATION October 31, 2023 12:00am albuterol 0.833 mg/ml / ipratropium bromide 0.167 mg/ml inhalation solution (4 sources) Anticholinergic, beta2-Adrenergic Agonist Start: 07-02-2021 take 1 dose by inhalation four times daily albuterol-ipratropium 2.5 mg-0.5 mg/3 mL inhalation solution Dose = 3 mL, Inhalation, QID, # 360 mL, 0 Refill(s), Pharmacy: [facility], 182, cm, 04/11/21 11:58:00 EST, Height, kg, 04/11/21 11:58:00 EST, Dosing Weight Start Date: 07/02/21 Status: Ordered Start: 07-02-2021 take 1 dose by inhal ation four times daily albuterol-ipratropium 2.5 mg-0.5 mg/3 mL inhalation solution Dose = 3 mL, Inhalation, QID, # 360 mL, 0 Refill(s), Pharmacy: [facility], 182, cm, 04/11/21 11:58:00 EST, Height, kg, 04/11/21 11:58:00 EST, Dosing Weight Start Date: 07/02/21 Status: Ordered Start: 02-15-2021 take 1 dose by inhal ation four times daily albuterol-ipratropium 2.5 mg-0.5 mg/3 mL inhalation solution Dose = 3 mL, Inhalation, QID, # 360 mL, 0 Refill(s), Pharmacy: [facility], 182, cm, 11/20/20 9:32:00 EDT, Height, kg, 11/20/20 9:32:00 EDT, Dosing Weight Start Date: 02/15/21 Status: Ordered albuterol MDI (90 mcg/inh) CFC free inhalation aerosol (7 sources) Start: 01-24-2024 take 1 puff(s) by inhalation every four hours as needed for wheezing albuterol MDI (90 mcg/inh) CFC free inhalation aerosol 1 puff(s), Inhalation, q4h, PRN as needed for wheezing, # 18 gram(s), 0 Refill(s), Pharmacy: [facility], 178, cm, 01/20/24 10:44:00 EDT, Height, kg, 01/20/24 10:34:00 EDT, Dosing Weight Start Date: 01/24/24 Status: Ordered Start: 12-16-2023 take 1 puff(s) by in halation every four hours as needed for wheezing albuterol MDI (90 mcg/inh) CFC free inhalation aerosol 1 puff(s), Inhalation, q4h, PRN as needed for wheezing, # 18 gram(s), 0 Refill(s), Pharmacy: [facility], 177.8, cm, 09/09/23 10:25:00 EDT, Height, kg, 09/09/23 10:25:00 EDT, Dosing Weight Start Date: 12/16/23 Status: Ordered Start: 06-04-2023 take 1 puff(s) by in halation every four hours as needed for wheezing albuterol MDI (90 mcg/inh) CFC free inhalation aerosol 1 puff(s), Inhalation, q4h, PRN as needed for wheezing, # 18 gram(s), 5 Refill(s), [facility]: [id number], 182.9, cm, 06/04/23 8:38:00 EST, Height, kg, 06/04/23 8:38:00 EST, Dosing Weight Start Date: 06/04/23 Status: Ordered apixaban 5 mg oral tablet (20 sources) Factor Xa Inhibitor Start: 09-17-2024 take 1 tablet by mouth twice daily Apixaban (Eliquis) 5 mg tablet Active 5 mg PO TWICE A DAY September 17, 2024 12:00am Start: 09-13-2021 End: 04-25-2022 take 1 tablet by mouth twice daily Apixaban (Eliquis) 5 mg tablet Discontinued 5 mg PO TWICE A DAY 180 4 September 13, 2021 11:50am April 25, 2022 11:45am Start: 06-02-2020 End: 07-03-2021 take 1 tablet by mouth twice daily Apixaban (Eliquis) 5 mg tablet Discontinued 5 mg PO TWICE A DAY 180 3 June 02, 2020 4:05pm July 03, 2021 11:02am atorvastatin 40 mg oral tablet (3 sources) HMG-CoA Reductase Inhibitor Start: 09-17-2024 take 1 tablet by mouth at bedtime Atorvastatin 40 mg tablet Active 40 mg PO AT BEDTIME September 17, 2024 12:00am Pepto-bismol (7 sources) Bismuth Start: 09-09-2023 Pepto-Bismol PRN as needed, 0 Refill(s) Start Date: 09/09/23 Status: Ordered Budesonide-Glycopy r-Formoterol (3 sources) Corticosteroid, beta2-Adrenergic Agonist Start: 09-17-2024 Budesonide-Glycop yr-Formoterol (Breztri Aerosphere) 160-9-4.8 mcg/actuation HFA aerosol inhaler Active 2 NMA INHALATION TWICE A DAY September 17, 2024 12:00am 168 hr buprenorphine 0.02 mg/hr transdermal system (3 sources) Partial Opioid Agonist Start: 09-17-2024 apply 20 ug transdermal route every week Buprenorphine 20 mcg/hour patch weekly Active 1 NMA TD EVERY WEEK September 17, 2024 12:00am BuPROPion (Eqv-Wellbutrin SR) 150 mg/12 hours oral tablet, extended release (4 sources) Start: 06-20-2022 BuPROPion (Eqv-Wellbutrin SR) 150 mg/12 hours oral tablet, extended release Dose : 150 mg = 1 tab(s), Oral, BID, 0 Refill(s) Start Date: 06/20/22 Status: Ordered Centrum Silver oral tablet (16 sources) Start: 01-27-2018 take 1 tablet by mouth once daily Centrum Silver oral tablet Dose = 1 tab(s), Oral, qDay, # 30 tab(s), 0 Refill(s) Start Date: 01/27/18 Status: Ordered doxycycline hyclate 100 mg oral capsule (1 source) Tetracycline-class Drug Start: 07-24-2021 End: 08-03-2021 doxycycline hyclate 100 mg oral capsule Dose : 100 mg = 1 cap(s), Oral, BID, X 10 day(s), # 20 cap(s), 0 Refill(s), 08/03/21 10:58:00 EST, [facility] [address] 181.5, cm, 07/24/21 10:18:00 EST, Height, 100.2, kg, 07/24/21 10:18:00 EST, Dosing Weight Start Date: 07/24/21 Stop Date: 08/03/21 Status: Ordered DULoxetine 60 mg delayed release oral capsule (20 sources) Serotonin and Norepinephrine Reuptake Inhibitor Start: 07-03-2020 End: 12-06-2024 take 1 capsule by mouth once daily Duloxetine 60 mg capsule,delayed release(DR/EC) Active 60 mg PO DAILY April 25, 2022 1:00am Start: 02-29-2020 End: 04-25-2022 take 1 capsule by mouth once daily Duloxetine 30 MG capsule,delayed release(DR/EC) Discontinued 30 mg PO DAILY February 29, 2020 12:00am April 25, 2022 11:41am Check with primary doctor empagliflozin 10 mg oral tablet (2 sources) Sodium-Glucose Cotransporter 2 Inhibitor Start: 10-27-2024 take 1 tablet by mouth once daily in the morning Empagliflozin (Jardiance) 10 mg tablet Active 10 mg PO EVERY MORNING 30 October 27, 2024 12:00am fexofenadine hydrochloride 180 mg oral tablet (16 sources) Histamine-1 Receptor Antagonist Start: 08-20-2024 take 1 tablet by mouth every twenty-four hours Fexofenadine 180 mg tablet Active 180 mg PO Q24H August 20, 2024 12:00am Start: 02-19-2021 [place] 24 Sujata r Allergy oral tablet Dose : 180 mg = 1 tab(s), Oral, Daily, # 30 tab(s), 0 Refill(s), Pharmacy: [facility] [address] 182.5, cm, 02/19/21 9:32:00 EDT, Height, kg, 02/19/21 9:32:00 EDT, Dosing Weight Start Date: 02/19/21 Status: Ordered Afjthgbpmgo-Pusgeiowy-Cnxvss er (9 sources) Anticholinergic, Corticosteroid, beta2-Adrenergic Agonist Start: 09-06-2021 Lxifstfwuxw-Mewpinwrq-Flfhtg er (Trelegy Ellipta) 100-62.5-25 mcg blister with device Active 1 NMA INHALATION DAILY September 06, 2021 12:00am Start: 09-06-2021 Fluticasone-Um eclidin-Vilanter (Trelegy Ellipta) 100-62.5-25 mcg blister with device Active 1 INH INHALATION DAILY September 06, 2021 12:00am furosemide 40 mg oral tablet (20 sources) Loop Diuretic Start: 09-17-2024 take 1 tablet by mouth twice daily Furosemide (Lasix) 40 mg tablet Active 40 mg PO TWICE A DAY 90 September 17, 2024 12:03pm Start: 10-04-2021 End: 09-17-2024 take 1 tablet by mouth once daily Furosemide (Lasix) 40 mg tablet Discontinued 40 mg PO DAILY 90 September 15, 2023 8:05am September 17, 2024 12:03pm Start: 09-19-2021 End: 10-04-2021 take 2 tablets by mouth twice daily Furosemide (Lasix) 40 mg tablet Discontinued 40 mg PO .COMPLEX 31 September 19, 2021 12:00am October 04, 2021 2:33pm 40 mg PO; Day 1: 40 mg p.o. twice daily, starting day 2: Lasix 40 mg p.o. daily gabapentin 300 mg oral capsule (20 sources) Anti-epileptic Agent Start: 06-20-2022 End: 11-25-2022 gabapentin 300 mg oral capsule Dose : 300 mg = 1 cap(s), Oral, qHS, # 90 cap(s), 0 Refill(s), other reason (Rx), Neuropathic pain Start Date: 08/27/22 Stop Date: 11/25/22 Status: Ordered Start: 02-15-2021 End: 02-09-2022 gabapentin 300 mg oral capsu le Dose : 300 mg = 1 cap(s), Oral, BID, # 180 cap(s), 1 Refill(s), Pharmacy: [facility], Neuropathic pain, 181.5, cm, 07/24/21 10:18:00 EST, Height, 100.2, kg, 07/24/21 10:18:00 EST, Dosing Weight Start Date: 08/13/21 Stop Date: 02/09/22 Status: Ordered Start: 05-08-2018 End: 07-17-2023 take 3 capsules by mouth twice daily Gabapentin 100 mg capsule Discontinued 300 mg PO TWICE A DAY June 02, 2020 9:56am July 17, 2023 4:57pm Check with primary doctor Start: 05-08-2018 End: 07-17-2023 take 300 mg by mouth twice daily Gabapentin Discontinu ed 300 MG PO TWICE A DAY June 02, 2020 9:56am July 17, 2023 4:57pm ibuprofen 200 mg oral tablet (4 sources) Nonsteroidal Anti-inflammatory Drug Start: 02-10-2020 ibuprofen 200 mg oral tablet Dose : 400 mg = 2 tab(s), Oral, q6hr, PRN pain or fever, 0 Refill(s) Start Date: 02/10/20 Status: Ordered lactobacillus combination no.9 (Adult 50 Plus Probiotic) (3 sources) Start: 09-17-2024 lactobacillus combination no.9 (Adult 50 Plus Probiotic) Active PO DAILY September 17, 2024 12:00am magnesium oxide 400 mg oral tablet (20 sources) Start: 12-23-2023 magnesium oxid e 400 mg oral tablet Dose : 400 mg = 1 tab(s), Oral, Daily, # 90 tab(s), 0 Refill(s), Pharmacy: [facility], 177.8, cm, 09/09/23 10:25:00 EDT, Height, kg, 09/09/23 10:25:00 EDT, Dosing Weight Start Date: 12/23/23 Status: Ordered Start: 08-27-2022 magnesium oxid e 400 mg oral tablet Dose : 400 mg = 1 tab(s), Oral, Daily, 0 Refill(s) Start Date: 08/27/22 Status: Ordered Start: 10-18-2020 End: 08-22-2022 magnesium oxide 400 mg oral tablet Dose : 400 mg = 1 tab(s), Oral, qDay, X 90 day(s), # 90 tab(s), 3 Refill(s), 08/22/22 11:06:00 EDT, Pharmacy: [facility], 181, cm, 08/20/21 8:43:00 EDT, Height, kg, 08/20/21 8:43:00 EDT, Dosing Weight Start Date: 08/27/21 Stop Date: 08/22/22 Status: Ordered Start: 05-08-2018 End: 11-05-2024 take 1 capsule by mouth at bedtime Magnesium Oxide 400 mg capsule Discontinued 400 mg PO AT BEDTIME May 08, 2018 1:00am November 05, 2024 11:26am Check with primary doctor metoprolol tartrate 50 mg oral tablet (20 sources) beta-Adrenergic Fidelina Start: 07-23-2023 take 1 tablet by mouth twice daily Metoprolol Tartrate 50 mg tablet Active 50 mg PO TWICE A DAY October 31, 2023 12:00am Start: 07-17-2023 End: 10-31-2023 take 2 tablets by mouth twice daily Metoprolol Succinate 100 mg tablet extended release 24 hr Discontinued 50 mg PO TWICE A DAY July 17, 2023 4:56pm October 31, 2023 11:40am Start: 07-17-2023 take 50 mg by mouth twice ken y Metoprolol Succinate Active 50 MG PO TWICE A DAY July 17, 2023 4:56pm Start: 06-20-2022 Metoprolol Tar trate 50 mg oral tablet Dose : 100 mg = 2 tab(s), Oral, qHS, 0 Refill(s) Start Date: 06/20/22 Status: Ordered Start: 04-25-2022 End: 04-25-2022 take 1 tablet by mouth twice daily Metoprolol Succinate 100 mg tablet extended release 24 hr Discontinued 100 mg PO TWICE A DAY April 25, 2022 11:43am April 25, 2022 12:22pm Start: 01-15-2021 metoprolol tar trate 100 mg oral tablet Dose : 100 mg = 1 tab(s), Oral, BID, # 60 tab(s), 11 Refill(s), Pharmacy: [facility], 182, cm, 11/20/20 9:32:00 EDT, Height, kg, 11/20/20 9:32:00 EDT, Dosing Weight Start Date: 01/15/21 Status: Ordered Start: 12-11-2020 End: 07-17-2023 take 1 tablet by mouth once daily Metoprolol Succinate 100 mg tablet extended release 24 hr Discontinued 100 mg PO DAILY April 25, 2022 12:22pm July 17, 2023 4:57pm Start: 06-12-2020 End: 12-11-2020 take 1 tablet by mouth twice daily Metoprolol Succinate 100 mg tablet extended release 24 hr Discontinued 100 mg PO TWICE A DAY June 12, 2020 1:00am December 11, 2020 9:38am Start: 05-08-2018 End: 06-12-2020 take 1 capsule by mouth twice daily Metoprolol Succinate 100 mg capsule,sprinkle,ER 24hr Discontinued 100 mg PO TWICE A DAY May 08, 2018 1:00am June 12, 2020 2:54pm Check with primary doctor multivitamin,to-afwo-exfckiu s tablet (2 sources) Start: 05-08-2018 take 1 tablet by mouth once daily multivitamin,ls-qaxu-bqybbxls tablet Active 1 TABLET PO DAILY May 08, 2018 1:00am 24 hr nicotine 0.583 mg/hr transdermal system (5 sources) Chol iner gic Sajan Talley ist Start: 01-20-2024 apply 1 dose transderma l route once daily nicotine 14mg / 24hrs transdermal patch Dose = 1 patch(es), Transdermal, qDay, 0 Refill(s) Start Date: 01/20/24 Status: Ordered Start: 12-16-2023 End: 01-15-2024 apply 1 dose transdermal route once daily nicotine 14mg / 24hrs transdermal patch Dose = 1 patch(es), Transdermal, qDay, X 30 day(s), # 30 patch(es), 0 Refill(s), Pharmacy: [facility], Tobacco use, 177.8, cm, 09/09/23 10:25:00 EDT, Height, kg, 09/09/23 10:25:00 EDT, Dosing Weight Start Date: 12/16/23 Stop Date: 01/15/24 Status: Ordered Start: 09-10-2023 End: 10-10-2023 apply 1 dose transdermal route once daily nicotine 14mg / 24hrs transdermal patch Dose = 1 patch(es), Transdermal, qDay, X 30 day(s), # 30 patch(es), 0 Refill(s), Pharmacy: [id number], Tobacco use, 177.8, cm, 09/09/23 10:25:00 EDT, Height, kg, 09/09/23 10:25:00 EDT, Dosing Weight Start Date: 09/10/23 Stop Date: 10/10/23 Status: Ordered omeprazole 40 mg delayed release oral capsule (20 sources) Proton Pump Inhibitor Start: 07-23-2023 End: 12-06-2024 take 1 capsule by mouth twice daily Omeprazole 40 mg capsule,delayed release(DR/EC) Active 40 mg PO TWICE A DAY October 31, 2023 12:00am Start: 07-17-2023 End: 10-31-2023 take 2 capsules by mouth once daily Omeprazole 20 mg capsule,delayed release(DR/EC) Discontinued 40 mg PO DAILY July 17, 2023 4:54pm October 31, 2023 11:40am Check with primary doctor Start: 07-17-2023 take 40 mg by mouth once daily Omeprazole Active 40 MG PO DAILY July 17, 2023 4:54pm Start: 06-06-2022 End: 06-01-2023 omeprazole 40 mg oral delaye d release capsule Dose : 40 mg = 1 cap(s), Oral, BID, # 180 cap(s), 3 Refill(s), Pharmacy: [facility], GERD (gastroesophageal reflux disease), 180.3, cm, 06/06/22 10:31:00 EST, Height, kg, 06/06/22 10:31:00 EST, Dosing Weight Start Date: 06/06/22 Stop Date: 06/01/23 Status: Ordered Start: 06-29-2018 End: 07-17-2023 take 1 capsule by mouth once daily Omeprazole 20 MG capsule Discontinued 20 mg PO DAILY June 29, 2018 1:00am July 17, 2023 4:57pm Check with primary doctor ondansetron 4 mg oral tablet (19 sources) Serotonin-3 Receptor Antagonist Start: 07-17-2023 take 1 tablet by mouth at bedtime as needed for nausea and vomiting Ondansetron Hcl 4 mg tablet Active 4 mg PO AT BEDTIME as needed for nausea and vomiting July 17, 2023 1:00am Start: 08-28-2022 End: 09-17-2022 Zofran 4 mg oral tablet Dose : 4 mg = 1 tab(s), Oral, TID, PRN PRN Nausea/Vomiting, X 10 day(s), # 30 tab(s), 1 Refill(s), 09/17/22 12:29:00 EDT, [facility]acy: [facility] #[id number], Nausea, 180.3, cm, 08/27/22 11:39:00 EDT, Height Start Date: 08/28/22 Stop Date: 09/17/22 Status: Ordered Start: 07-15-2022 Zofran 4 mg or al tablet Dose : 4 mg = 1 tab(s), Oral, q6h, PRN Nausea/Vomiting, 0 Refill(s) Start Date: 07/15/22 Status: Ordered pregabalin 50 mg oral capsule (7 sources) Start: 08-20-2024 take 1 capsule by mouth twice daily Pregabalin (Lyrica) 50 mg capsule Active 50 mg PO TWICE A DAY August 20, 2024 12:00am spironolactone 25 mg oral tablet (3 sources) Aldosterone Antagonist Start: 09-21-2024 take 1 tablet by mouth once daily Spironolactone 25 mg tablet Active 25 mg PO daily 30 3 September 21, 2024 12:00am sucralfate 1000 mg oral tablet (3 sources) Aluminum Complex Start: 09-17-2024 Sucralfate 1 gram tablet Active PO September 17, 2024 12:00am tadalafil 20 mg oral tablet (4 sources) Phosphodiesterase 5 Inhibitor Start: 11-20-2020 End: 11-20-2021 Cialis 20 mg oral tablet Dose : 20 mg = 1 tab(s), Oral, qDay, PRN as needed for erectile dysfunction, MAx 20 mg in 24 our time period, # 20 tab(s), 1 Refill(s), Pharmacy: [facility] 182, cm, 11/20/20 9:32:00 EDT, Height, kg, 11/20/20 9:32:00 EDT, Dosing Weight Start Date: 11/20/20 Stop Date: 11/20/21 Status: Ordered terbinafine 250 mg oral tablet (1 source) Allylamine Antifungal Start: 08-27-2022 End: 10-08-2022 terbinafine 250 mg oral tablet Dose : 250 mg = 1 tab(s), Oral, qDay, X 42 day(s), # 42 tab(s), 0 Refill(s), 10/08/22 11:41:00 EDT, Pharmacy: [facility] #[id number], Onychomycosis, 180.3, cm, 08/27/22 11:39:00 EDT, Height Start Date: 08/27/22 Stop Date: 10/08/22 Status: Ordered traZODone hydrochloride 50 mg oral tablet (13 sources) Serotonin Reuptake Inhibitor Start: 12-28-2018 traZODone 50 mg oral tablet Dose : 50 mg = 1 tab(s), Oral, qHS, # 30 tab(s), 0 Refill(s) Start Date: 12/28/18 Status: Ordered Start: 06-29-2018 End: 06-02-2020 take 2 tablets by mouth at bedtime Trazodone 50 MG tablet Discontinued 100 mg PO AT BEDTIME June 29, 2018 1:00am June 02, 2020 9:58am Check with primary doctor Start: 06-29-2018 End: 06-02-2020 take 100 mg by mouth at bedtime Trazodone Discontinued 100 MG PO AT BEDTIME June 29, 2018 1:00am June 02, 2020 9:58am Trelegy Ellipta 100 mcg-62.5 mcg-25 mcg/inh inhalation powder (14 sources) Start: 12-23-2023 End: 04-21-2024 take 1 dose by mouth once daily Trelegy Ellipta 100 mcg-62.5 mcg-25 mcg/inh inhalation powder Dose = 1 puff(s), Inhalation, qDay, at the same time every day. Following administration, rinse mouth with water after use (do not swallow)., # 3 EA, 3 Refill(s), Pharmacy: [facility], 177.8, cm, 09/09/23 10:25:00 EDT, Height, kg, 09/09/23 10:25:00 EDT, Dosing Weight Start Date: 12/23/23 Stop Date: 04/21/24 Status: Ordered Start: 02-12-2023 End: 06-12-2023 take 1 dose by mouth once daily Trelegy Ellipta 100 mcg-62.5 mcg-25 mcg/inh inhalation powder Dose = 1 puff(s), Inhalation, qDay, at the same time every day. Following administration, rinse mouth with water after use (do not swallow)., # 3 EA, 3 Refill(s), Pharmacy: [facility], 180.3, cm, 10/10/22 10:34:00 EDT, Height, kg, 10/10/22 10:34:00 EDT, Dosing Weight Start Date: 02/12/23 Stop Date: 06/12/23 Status: Ordered Start: 01-03-2022 End: 05-03-2022 take 1 dose by mouth once daily Trelegy Ellipta 100 mcg-62.5 mcg-25 mcg/inh inhalation powder Dose = 1 puff(s), Inhalation, qDay, at the same time every day. Following administration, rinse mouth with water after use (do not swallow)., # 1 EA, 3 Refill(s), Pharmacy: [facility] (Now [facility]), 182, cm... Start Date: 01/03/22 Stop Date: 05/03/22 Status: Ordered Start: 07-24-2021 End: 11-21-2021 take 1 dose by mouth once daily Trelegy Ellipta 100 mcg-62.5 mcg-25 mcg/inh inhalation powder Dose = 1 puff(s), Inhalation, qDay, at the same time every day. Following administration, rinse mouth with water after use (do not swallow)., # 1 EA, 3 Refill(s), Pharmacy: [facility], 181.5, cm, 07/24/21 10:18:00 EST, Height, kg, 0... Start Date: 07/24/21 Stop Date: 11/21/21 Status: Ordered Completed/Discontinued Medications Medication Drug Class(es) Dates Sig (Normalized) Sig (Original) acetaminophen 325 mg / HYDROcodone bitartrate 5 mg oral tablet (18 sources) Opioid Agonist Start: 03-29-2020 End: 04-05-2020 take 1-10 tablets by mouth every four hours as needed for pain Hydrocodone-Acetami nophen 1 EACH tablet Discontinued 1 NMA PO EVERY 4 HOURS NEEDED as needed for Pain 1-10 Or Fever 20 7 0 March 29, 2020 April 04, 2020 1:00am April 05, 2020 1:02am Start: 03-29-2020 End: 04-05-2020 Hydrocodone-Acetaminophen Di scontinued 1 EACH PO EVERY 4 HOURS NEEDED 20 7 March 29, 2020 April 05, 2020 1:02am Start: 07-06-2018 End: 07-09-2018 Hydrocodone-Acetaminophen 1 TABLET tablet Discontinued 1 {tbl} PO EVERY 6 HOURS NEEDED as needed for Pain 8 3 0 July 06, 2018 1:00am July 08, 2018 1:00am July 09, 2018 1:08am Postoperative pain Other acute postprocedural pain Start: 07-06-2018 End: 07-09-2018 take 1 tablet by mouth every six hours as needed Hydrocodone-Acetaminophen Discontinued 1 TABLET PO EVERY 6 HOURS NEEDED 8 3 July 06, 2018 1:00am July 09, 2018 1:08am amLODIPine 10 mg oral tablet (20 sources) Dihydropyridine Calcium Channel Fidelina Start: 09-21-2024 End: 11-05-2024 take 5 mg by mouth once daily Amlodipine 10 mg tablet Discontinued 5 mg PO DAILY September 21, 2024 8:21am November 05, 2024 12:05pm Start: 02-15-2021 End: 09-21-2024 take 1 tablet by mouth once daily Amlodipine 10 mg tablet Discontinued 10 mg PO DAILY September 06, 2021 12:00am September 21, 2024 8:22am Start: 06-29-2018 End: 09-06-2021 take 1 tablet by mouth once daily Amlodipine 5 MG tablet Discontinued 5 mg PO DAILY June 29, 2018 1:00am September 06, 2021 9:42am Check with primary doctor aspirin 81 mg delayed release oral tablet (13 sources) Platelet Aggregation Inhibitor, Nonsteroidal Anti-inflammatory Drug Start: 02-11-2018 End: 06-02-2020 take 1 tablet by mouth once daily Aspirin (Adult Aspirin Regimen) 81 mg tablet,delayed release (DR/EC) Discontinued 81 mg PO DAILY May 08, 2018 1:00am June 02, 2020 10:26am Heart/Stroke Prevention Start: 02-11-2018 aspirin 81 mg oral delayed release tablet Dose : 81 mg = 1 tab(s), Oral, BID, # 60 tab(s), 0 Refill(s), [facility]: [id number] [facility] Start Date: 02/11/18 Status: Ordered baclofen 10 mg oral tablet (17 sources) gamma-Aminobutyric Acid-ergic Agonist Start: 11-06-2021 End: 09-17-2024 take 1 tablet by mouth twice daily Baclofen 10 mg tablet Discontinued 10 mg PO TWICE A DAY April 25, 2022 1:00am September 17, 2024 11:18am Start: 01-17-2021 baclofen 10 mg oral tablet Dose : 30 mg = 3 tab(s), Oral, Daily, 1 in am, 2 in pm, # 270 tab(s), 3 Refill(s), Pharmacy: [facility], 182, cm, 11/20/20 9:32:00 EDT, Height, kg, 11/20/20 9:32:00 EDT, Dosing Weight Start Date: 01/17/21 Status: Ordered ciprofloxacin 500 mg oral tablet (18 sources) Quinolone Antimicrobial Start: 08-09-2020 End: 12-11-2020 take 1 tablet by mouth twice daily Ciprofloxacin Hcl 500 MG tablet Discontinued 500 mg PO TWICE A DAY 10 August 09, 2020 12:00am December 11, 2020 9:10am Start: 03-29-2020 End: 06-02-2020 take 1 tablet by mouth twice daily Ciprofloxacin Hcl 500 MG tablet Discontinued 500 mg PO TWICE A DAY 14 0 March 29, 2020 1:00am June 02, 2020 9:57am clopidogrel 75 mg oral tablet (9 sources) [id number] Platelet Inhibitor Start: 06-12-2020 End: 06-26-2020 take 1 tablet by mouth once daily Clopidogrel (Plavix) 75 mg tablet Discontinued 75 mg PO DAILY 30 2 June 12, 2020 1:00am June 26, 2020 12:20pm dapagliflozin 10 mg oral tablet (12 sources) Sodium-Glucose Cotransporter 2 Inhibitor Start: 09-01-2024 End: 10-27-2024 take 1 tablet by mouth once daily in the morning Dapagliflozin Propanediol (Farxiga) 10 mg tablet Discontinued 10 mg PO EVERY MORNING 30 3 September 07, 2024 12:00am September 17, 2024 12:01pm ADELAIDA: pt's insurance only covers name brand diclofenac sodium 0.03 mg/mg topical gel (4 sources) Nonsteroidal Anti-inflammatory Drug Start: 07-12-2020 End: 07-07-2021 diclofenac 3% topical gel Apply 1 herb, Topical, BID, # 100 gram(s), 3 Refill(s), Pharmacy: [facility], 181.3, cm, 12/13/19 9:41:00 EDT, Height, 93.2, kg, 07/03/20 9:57:00 EST, Dosing Weight Start Date: 07/12/20 Stop Date: 07/07/21 Status: Ordered Start: 07-12-2020 End: 07-07-2021 diclofenac 3% topical gel Ap ply 1 herb, Topical, BID, # 100 gram(s), 3 Refill(s), Pharmacy: [facility], 181.3, cm, 12/13/19 9:41:00 EDT, Height, 93.2, kg, 07/03/20 9:57:00 EST, Dosing Weight Start Date: 07/12/20 Stop Date: 07/07/21 Status: Ordered finasteride 5 mg oral tablet (20 sources) 5-alpha Reductase Inhibitor Start: 02-29-2020 End: 09-17-2024 take 1 tablet by mouth once daily Finasteride 5 MG tablet Discontinued 5 mg PO DAILY February 29, 2020 12:00am September 17, 2024 11:16am Check with primary doctor fluticasone propionate 0.05 mg/actuat metered dose nasal spray (14 sources) Corticosteroid Start: 12-12-2023 End: 01-11-2024 take 50 ug nasal route twice daily Flonase 50 mcg/inh nasal spray 50 mcg Dose = 1 spray(s), Nostril, each, BID, # 16 gram(s), 0 Refill(s), Pharmacy: [facility], Rhinitis, 177.8, cm, 09/09/23 10:25:00 EDT, Height, kg, 09/09/23 10:25:00 EDT, Dosing Weight Start Date: 12/12/23 Stop Date: 01/11/24 Status: Ordered Start: 10-31-2023 Fluticasone Pr opionate 50 mcg/actuation spray,suspension Active 1 NMA INTRANASAL October 31, 2023 12:00am Start: 09-09-2023 End: 10-09-2023 take 50 ug nasal route twice daily Flonase 50 mcg/inh nasal spray 50 mcg Dose = 1 spray(s), Nostril, each, BID, # 16 gram(s), 0 Refill(s), [facility]: [id number], Rhinitis, 177.8, cm, 09/09/23 10:25:00 EDT, Height, kg, 09/09/23 10:25:00 EDT, Dosing Weight Start Date: 09/09/23 Stop Date: 10/09/23 Status: Ordered 24 hr isosorbide mononitrate 30 mg extended release oral tablet (20 sources) Nitrate Vasodilator Start: 07-17-2023 End: 08-30-2024 take 1 tablet by mouth once daily, then take 1 tablet by mouth every twenty-four hours Isosorbide Mononitrate 30 mg tablet extended release 24 hr Discontinued 30 mg PO DAILY 30 August 11, 2023 8:06am August 30, 2024 11:06am ammonium lactate 120 mg/ml topical cream (13 sources) Start: 08-20-2021 End: 10-15-2021 ammonium lactate 12% topical cream Apply 1 herb, Topical, BID, # 385 gram(s), 3 Refill(s), Pharmacy: [facility], Cream, 181, cm, 08/20/21 8:43:00 EDT, Height, 102.1, kg, 08/20/21 8:43:00 EDT, Dosing Weight Start Date: 08/20/21 Stop Date: 10/15/21 Status: Ordered lisinopril 20 mg oral tablet (20 sources) Angiotensin Converting Enzyme Inhibitor Start: 07-17-2023 End: 10-31-2023 take 10 mg by mouth once daily Lisinopril 20 mg tablet Discontinued 10 mg PO DAILY July 17, 2023 1:00am October 31, 2023 11:43am Start: 07-17-2023 take 10 mg by mouth once daily Lisinopril Active 10 MG PO DAILY July 17, 2023 1:00am Start: 07-16-2022 End: 09-14-2022 lisinopril 10 mg oral tablet Dose : 10 mg = 1 tab(s), Oral, qDay, dose change - last incorrect order was for 20mg, # 60 tab(s), 0 Refill(s), Pharmacy: [facility] #[id number], Hypertension, 180.3, cm, 07/16/22 10:11:00 EST, Height Start Date: 07/16/22 Stop Date: 09/14/22 Status: Ordered Start: 06-20-2022 End: 09-18-2022 lisinopril 20 mg oral tablet Dose : 20 mg = 1 tab(s), Oral, qHS, # 90 tab(s), 0 Refill(s), other reason (Rx) Start Date: 06/20/22 Stop Date: 09/18/22 Status: Ordered Start: 05-08-2018 End: 10-31-2023 take 1 tablet by mouth once daily Lisinopril 40 mg tablet Discontinued 40 mg PO DAILY July 17, 2023 4:55pm October 31, 2023 11:43am Check with primary doctor metoclopramide 5 mg oral tablet (19 sources) Dopamine-2 Receptor Antagonist Start: 10-31-2023 End: 08-20-2024 take 1 tablet by mouth twice daily Metoclopramide Hcl 5 mg tablet Discontinued 5 mg PO TWICE A DAY October 31, 2023 11:41am August 20, 2024 10:09am Start: 07-17-2023 End: 10-31-2023 take 1 tablet by mouth once daily Metoclopramide Hcl 5 mg tablet Discontinued 5 mg PO DAILY July 17, 2023 1:00am October 31, 2023 11:43am metroNIDAZOLE 0.01 mg/mg topical gel (8 sources) Nitroimidazole Antimicrobial Start: 08-27-2022 End: 10-26-2022 metroNIDAZOLE 1% topical gel Apply 1 herb, Topical, Daily, # 55 gram(s), 1 Refill(s), Pharmacy: [facility] #[id number], Gel, 180.3, cm, 08/27/22 11:39:00 EDT, Height, 85.1 Start Date: 08/27/22 Stop Date: 10/26/22 Status: Ordered montelukast 10 mg oral tablet (17 sources) Leukotriene Receptor Antagonist Start: 05-08-2018 End: 07-17-2023 take 1 tablet by mouth once daily in the evening Montelukast 10 mg tablet Discontinued 10 mg PO EVERY EVENING May 08, 2018 1:00am July 17, 2023 4:57pm Check with primary doctor Multivitamin,Tx-Iro n-Minerals (Complete Multivitamin) tablet (7 sources) Start: 05-08-2018 End: 09-17-2024 Multivitamin,Tx-Ir on-Minerals (Complete Multivitamin) tablet Discontinued 1 {tbl} PO DAILY May 08, 2018 1:00am September 17, 2024 11:17am Check with primary doctor Start: 05-08-2018 End: 09-17-2024 Multivitamin,Fz-Oykd-Gqmkkqy s (Complete Multivitamin) tablet Discontinued 1 {tbl} PO DAILY May 08, 2018 1:00am September 17, 2024 11:17am Start: 05-08-2018 Multivitamin,T s-Qtzh-Mrlfkawj (Complete Multivitamin) tablet Active 1 {tbl} PO DAILY May 08, 2018 1:00am potassium chloride 10 meq extended release oral capsule (9 sources) Start: 05-08-2018 End: 06-02-2020 take 1 capsule by mouth once daily Potassium Chloride 10 mEq capsule, extended release Discontinued 10 meq PO DAILY May 08, 2018 1:00am June 02, 2020 10:27am Check with primary doctor pravastatin sodium 20 mg oral tablet (20 sources) HMG-CoA Reductase Inhibitor Start: 05-08-2018 End: 09-17-2024 take 1 tablet by mouth at bedtime Pravastatin 20 mg tablet Discontinued 20 mg PO AT BEDTIME May 08, 2018 1:00am September 17, 2024 11:19am Check with primary doctor tamsulosin hydrochloride 0.4 mg oral capsule (18 sources) alpha-Adrenergic Fidelina Start: 06-02-2020 End: 04-25-2022 take 1 capsule by mouth once daily Tamsulosin 0.4 mg capsule Discontinued 0.4 mg PO DAILY June 02, 2020 9:56am April 25, 2022 11:44am Check with primary doctor Start: 06-29-2018 End: 06-02-2020 take 1 capsule by mouth twice daily Tamsulosin 0.4 MG capsule Discontinued 0.4 mg PO TWICE A DAY June 29, 2018 1:00am June 02, 2020 9:58am Check with primary doctor triamterene 50 mg oral capsule (4 sources) Potassium-sparing Diuretic Start: 02-19-2021 End: 03-21-2021 triamterene 50 mg oral capsule Dose : 50 mg = 1 cap(s), Oral, qAM, # 30 cap(s), 0 Refill(s), Pharmacy: [facility] [address] 182.5, cm, 02/19/21 9:32:00 EDT, Height, kg, 02/19/21 9:32:00 EDT, Dosing Weight Start Date: 02/19/21 Stop Date: 03/21/21 Status: Ordered warfarin sodium 3 mg oral tablet (20 sources) Vitamin K Antagonist Start: 10-28-2023 End: 09-17-2024 take 1 tablet by mouth once daily Warfarin 3 mg tablet Discontinued 3 mg PO daily October 31, 2023 12:00am September 17, 2024 11:14am Start: 09-09-2023 warfarin 3 mg oral tablet Dose : 3 mg = 1 tab(s), Oral, qDay, right now 3 days a week is 1/2 tab, # 30 tab(s), 0 Refill(s) Start Date: 09/09/23 Status: Ordered Start: 07-06-2021 warfarin 2 mg oral tablet See Instructions, Take 3mg on Fridays and 2mg all other days of the week. Dispense 90 day supply, # 100 tab(s), 3 Refill(s), Pharmacy: [facility], 182, cm, 04/11/21 11:58:00 EST, Height, kg, 04/11/21 11:58:00 EST, Dosing Weight Start Date: 07/06/21 Status: Ordered Start: 07-03-2021 End: 09-17-2024 Warfarin 2 mg tablet Discont inued 2 mg PO .COMPLEX July 03, 2021 1:00am September 17, 2024 11:14am 2 mg PO managed by Primary Physician; Start: 04-04-2021 warfarin 2 mg oral tablet Dose : 2 mg = 1 tab(s), Oral, qDay, # 30 tab(s), 3 Refill(s), Pharmacy: [facility] [id number] 182.5, cm, 02/19/21 9:32:00 EDT, Height, kg, 02/19/21 9:32:00 EDT, Dosing Weight Start Date: 04/04/21 Status: Ordered Problems Active Problems Problem Classification Problem Date Documented Da te Episodic/Chronic Abdominal hernia (16 sources) Hiatal hernia 08-18-2017 Episodic Abdominal pain (7 sources) Abdominal pain 10-10-2022 Episodic Acute cerebrovascular disease (8 sources) Cerebrovascular accident Onset: 0 11-10-2016 Chronic Alcohol-related disorders (16 sources) Alcoholism 12-29-2018 Chronic Anxiety disorders (16 sources) Mixed anxiety and depressive disorder 12-29-2018 Chronic Blindness and vision defects (7 sources) Presbyopia 09-10-2023 Episodic Calculus of urinary tract (16 sources) Kidney stone 08-18-2017 Episodic Comment on above: HISTORY OF Cardiac dysrhythmias (20 sources) Atrial fibrillation; Translations: [Multiple premature ventricular complexes] Onset: 4 11-20-2020 Chronic Cataract (7 sources) Pseudophakia 09-10-2023 Chronic Comment on above: rebecca Chronic obstructive pulmonary disease and bronchiectasis (18 sources) Emphysematous bronchitis; Translations: [Chronic obstructive pulmonary disease, unspecified] Onset: 4 07-24-2021 Chronic Conditions associated with dizziness or vertigo (20 sources) Lightheadedness; Translations: [Dizziness and giddiness] 11-20-2020 Episodic Congestive heart failure; nonhypertensive (20 sources) Congestive heart failure; Translations: [Heart failure, unspecified] Onset: 5 08-20-2024 Chronic Coronary atherosclerosis and other heart disease (20 sources) Coronary atherosclerosis; Translations: [Atherosclerotic heart disease of [place] coronary artery without angina pectoris] Onset: 5 08-09-2020 Chronic Coronary atherosclerosis and other heart disease (1 source) Stented coronary artery; Translations: [Presence of coronary angioplasty implant and graft] Onset: 5 11-30-2024 Episodic Comment on above: Dar Crane 3.0 X 50 mm RODO to mid LAD 11/29/24 Diabetes mellitus with complications (1 source) 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; Translations: [Other specified diabetes mellitus with diabetic autonomic (poly)neuropathy] Chronic Disorders of lipid metabolism (20 sources) Hyperlipidemia; Translations: [Hyperlipidemia, unspecified] Onset: 5 12-24-2018 Chronic Esophageal disorders (16 sources) Gastroesophageal reflux disease 08-18-2017 Chronic Essential hypertension (20 sources) Hypertensive disorder; Translations: [Essential hypertension] Onset: 3 11-10-2016 Chronic Fluid and electrolyte disorders (20 sources) Hypokalemia; Translations: [Hypokalemia] Onset: 5 08-20-2024 Episodic Hyperplasia of prostate (20 sources) Benign prostatic hyperplasia; Translations: [Large prostate ] 12-24-2018 Chronic Hypertension with complications and secondary hypertension (1 source) Hypertensive heart disease with heart failure; Translations: [Hypertensive heart disease with heart failure] Onset: 5 Chronic Malaise and fatigue (11 sources) Fatigue; Translations: [Other fatigue] Onset: 5 09-06-2021 Episodic Malignant neoplasm without specification of site (16 sources) Squamous cell carcinoma 12-24-2018 Chronic Mood disorders (1 source) Mood disorders; Translations: [Depression, unspecified] Onset: 5 Mycoses (8 sources) Onychomycosis 08-29-2022 Episodic Nonspecific chest pain (20 sources) Chest pain; Translations: [Chest pain, unspecified] Onset: 5 09-06-2021 Episodic Osteoarthritis (16 sources) Osteoarthritis 08-18-2017 Chronic Other aftercare (2 sources) alf (current) use of anticoagulants; Translations: [rodent exterminator (current) use of anticoagulants] Onset: 5 Episodic Other aftercare (2 sources) Encounter for therapeutic drug level monitoring; Translations: [Encounter for therapeutic drug level monitoring] Onset: 5 Episodic Other circulatory disease (9 sources) History of cerebrovascular accident; Translations: [Personal history of transient ischemic attack (TIA), and cerebral infarction without residual deficits] 08-09-2020 Episodic Other connective tissue disease (8 sources) Neuropathic pain 08-29-2022 Episodic Other connective tissue disease (8 sources) Spasm 08-29-2022 Episodic Other disorders of stomach and duodenum (11 sources) Gastroparesis syndrome; Translations: [Gastroparesis] 07-17-2023 Episodic Other eye disorders (7 sources) Dry eyes 09-10-2023 Episodic Other eye disorders (7 sources) 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 Other gastrointestinal disorders (4 sources) Irritable bowel syndrome characterized by constipation; Translations: [Irritable bowel syndrome with constipation] 01-20-2024 Chronic Other gastrointestinal disorders (10 sources) Dysphagia 07-16-2022 Episodic Other inflammatory condition of skin (8 sources) Rosacea 08-29-2022 Chronic Other liver diseases (16 sources) Inflammatory disease of liver 08-18-2017 Chronic Comment on above: PT UNSURE WHICH TYPE Other liver diseases (16 sources) Elevated liver enzymes level 03-01-2019 Episodic Other lower respiratory disease (9 sources) Dyspnea on exertion; Translations: [Other forms of dyspnea] 09-05-2021 Episodic Other lower respiratory disease (20 sources) Dyspnea; Translations: [Dyspnea, unspecified] 09-06-2021 Episodic Other lower respiratory disease (2 sources) Dyspnea, unspecified; Translations: [Other respiratory abnormalities] Onset: 5 07-17-2023 Episodic Other lower respiratory disease (2 sources) Other forms of dyspnea; Translations: [Other forms of dyspnea] Onset: Episodic Other male genital disorders (16 sources) Impotence 11-20-2020 Chronic Other nervous system disorders (16 sources) 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 Other nutritional; endocrine; and metabolic disorders (10 sources) Unintentional weight loss 07-16-2022 Episodic Other upper respiratory disease (1 source) Chronic rhinitis; Translations: [Chronic rhinitis] Onset: 5 Chronic Other upper respiratory infections (7 sources) Sinusitis 06-04-2023 Chronic Residual codes; unclassified (16 sources) Sleep apnea 08-18-2017 Chronic Comment on above: HAS CPAP, DOES NOT U SE Residual codes; unclassified (9 sources) Edema; Translations: [Edema, unspecified] 09-19-2021 Episodic Residual codes; unclassified (9 sources) Hallucinations 07-16-2022 Episodic Residual codes; unclassified (1 source) Tobacco use; Translations: [Tobacco use] Onset: 5 Episodic Spondylosis; intervertebral disc disorders; other back problems (17 sources) Backache; Translations: [Low back pain] 11-19-2020 Episodic Substance-related disorders (9 sources) Nicotine dependence; Translations: [Nicotine dependence, unspecified, uncomplicated] 08-09-2020 Chronic Syncope (18 sources) Near syncope; Translations: [Syncope and collapse] 09-05-2021 Episodic Transient cerebral ischemia (9 sources) Transient cerebral ischemia; Translations: [Transient cerebral ischemic attack, unspecified] 08-09-2020 Chronic Unclassified (1 source) Unknown / UNK(Unknown) Onset: 7 Unclassified (16 sources) Catheter, device (physical object) 02-10-2020 Unclassified (10 sources) Polypharmacy 07-16-2022 Unclassified (1 source) Presence of stent in coronary artery Unclassified (1 source) Longstanding persistent atrial fibrillation Unclassified (1 source) Multiple premature ventricular complexes Unclassified (1 source) Z95.5 - Presence of coronary angioplasty implant and graft,I25.10 - Atherosclerotic heart disease of [place] coronary artery without angina pectoris,I48.11 - Longstanding persistent atrial fibrillation,I49.49 - Other premature depolarization Past or Other Problems Problem Classification Problem Date Documented Da te Episodic/Chronic Cardiac dysrhythmias (17 sources) Palpitations; Translations: [Palpitations] Onset: 08-20-2024 12-24-2018 Episodic Other screening for suspected conditions (not mental disorders or infectious disease) (1 source) Encounter for screening for malignant neoplasm of respiratory organs; Translations: [Encounter for screening for malignant neoplasm of respiratory organs] Onset: 03-31-2024 Episodic Unclassified (1 source) R00.2 Onset: 11-29-2016 Results Test Name Value Interpretation Reference Range Facility Absolute lymphocyte countOrd ered By: Margarita Levy on 11-30-2024 Lymphocytes Auto (Unsp spec) [#/Vol] 1.40 10*3/uL 0.83-4.51 [facility] Absolute neutrophil countOrd ered By: Margarita Levy on 11-30-2024 Neutrophils (Bld) [#/Vol] 13.3 10*3/uL High 2.0-7.7 [facility] Anion gap in Serum or Plasma Ordered By: Bryan Hernández on 11-30-2024 Anion gap [Moles/Vol] 11 mmol/L 5-15 [facility] Automated lymphocyte count a s percentage of total leukocytesOrdered By: Margarita Levy on 11-30-2024 Lymphocytes/100 WBC Auto (Unsp spec) 8.7 % Low 19-41 [facility] BUN/creatinine ratioOrdered By: Bryan Hernández on 07-08-2025 Urea nitrogen/Creatinine [Mass ratio] 21.3 mg/mg High 10-20 [facility] Basophil percentageOrdered B y: Margarita Levy on 11-30-2024 Basophils/100 WBC (Bld) 0.5 % 0-1 [facility] Bilirubin, totalOrdered By: Bryan Hernández on 11-30-2024 Bilirubin [Mass/Vol] 1.50 mg/dL High 0.00-1.30 [facility] Blood manual differential co mment interpretation (narrative result)Ordered By: Margarita Levy on 11-30-2024 Manual differential comment Ld (Bld) [Interp] SCANNED [facility] Carbon dioxide, total [Moles /volume] in Central venous bloodOrdered By: Bryan Hernández on 11-30-2024 CO2 [Moles/Vol] 22.3 mmol/L 21.0-32.0 [facility] Chloride assayOrdered By: Cheryl Hernández on 11-30-2024 Chloride [Moles/Vol] 102 mmol/L 98-108 [facility] Eosinophil percentageOrdered By: Margarita Levy on 11-30-2024 Eosinophils/100 WBC (Bld) 0.4 % 0-5 [facility] Erythrocyte distribution wid th ratioOrdered By: Margarita Levy on 11-30-2024 Erythrocyte distribution width (RBC) [Ratio] 20.3 % High 11.6-14.6 [facility] Erythrocyte distribution wid th standard deviationOrdered By: Margarita Levy on 11-30-2024 Erythrocyte distribution width (RBC) [Ratio] 51.1 fl High 35.1-43.9 [facility] Glomerular filtration rate ( GFR) estimation/1.73 sq m using serum, plasma, or whole bOrdered By: Bryan Hernández on 11-30-2024 GFR/1.73 sq M.predicted among non-blacks MDRD (S/P/Bld) [Vol rate/Area] 88 mL/min/{1.73_m2} >60 [facility] Comment on above: mL/min/1.73m2 CKD-EP I Creatinine Equation (2020) Glucose [facility] at [facility] deOrdered By: Fco Aguilera on 11-30-2024 Glucose [Mass/Vol] 168 mg/dL High 74-106 [facility] Comment on above: MANAGEMENT OF PATIEN T CARE PER NURSING PROTOCOL Hematocrit Auto (Bld) [Volum e fraction]Ordered By: Margarita Levy on 11-30-2024 Hematocrit (Bld) [Volume fraction] 39.0 % Low 40-54 [facility] Hemoglobin measurementOrdere d By: Margarita Levy on 11-30-2024 Hemoglobin (Bld) [Mass/Vol] 11.9 g/dL Low 13.0-16.5 [facility] Immature granulocytes/100 WB C Auto (Bld)Ordered By: Margarita Levy on 11-30-2024 Immature granulocytes/100 WBC (Bld) 0.300 % 0.0-0.9 [facility] Comment on above: IG% - Immature Granu locytes (promyelocytes, myelocytes and metamyelocytes) > 1% indicates that a LEFT SHIFT is Present. Laboratory - Chemistry and C hemistry - challengeOrdered By: Bryan Hernández on 11-30-2024 AST [Catalytic activity/Vol] 34 U/L <38 [facility] Laboratory - Hematology and Cell countsOrdered By: Margarita Levy on 11-30-2024 Anisocytosis Ql (Bld) 2+ [facility] MCV (mean corpuscular volume ) determinationOrdered By: Margarita Levy on 11-30-2024 MCV (RBC) [Entitic vol] 72.1 fL Low 80-94 [facility] [facility] Magn[facility] measurement (mass/ volume)Ordered By: Christian Hernandez on 11-30-2024 Magnesium (Unsp spec) [Mass/Vol] 2.2 mg/dL 1.5-2.2 [facility] Mean corpuscular hemoglobin (MCH) determinationOrdered By: Margarita Levy on 11-30-2024 MCH (RBC) [Entitic mass] 22.0 pg Low 27.0-32.0 [facility] Mean corpuscular hemoglobin concentration (MCHC) determinationOrdered By: Margarita Levy on 11-30-2024 MCHC (RBC) [Mass/Vol] 30.5 g/dL Low 32-36 [facility] Mean platelet volume determi nationOrdered By: Margarita Levy on 11-30-2024 Platelet mean volume (Bld) [Entitic vol] 8.8 fL 6.2-12.0 [facility] Monocyte percentageOrdered B y: Margarita Levy on 11-30-2024 Monocytes/100 WBC (Bld) 7.2 % 0-10 [facility] Neutrophil percentageOrdered By: Margarita Levy on 11-30-2024 Neutrophils/100 WBC (Bld) 82.9 % High 47-70 [facility] Nucleated red blood cell per centageOrdered By: Margarita Levy on 11-30-2024 Nucleated RBC/100 WBC (Bld) [Ratio] 0 % 0-5 [facility] Ovalocyte detectionOrdered B y: Margarita Levy on 11-30-2024 Ovalocytes LM Ql (Bld) 1+ [facility] Platelet countOrdered By: Mauro Levy on 11-30-2024 Platelets (Bld) [#/Vol] 367 10*3/uL 150-450 [facility] Platelet estimateOrdered By: Margarita Levy on 11-30-2024 Platelets LM Ql (Bld) ADEQUATE ADEQ [facility] Potassium measurement (mass/ volume)Ordered By: Bryan Hernández on 11-30-2024 Potassium (Unsp spec) [Mass/Vol] 4.8 mmol/L 3.3-5.1 [facility] RBC Auto (Bld) [#/Vol]Ordere d By: Margarita Levy on 11-30-2024 RBC (Bld) [#/Vol] 5.41 10*6/uL 4.6-6.2 [facility] Serum creatinine measurement (mass/volume)Ordered By: Bryan Hernández on 11-30-2024 Creatinine [Mass/Vol] 0.91 mg/dL 0.70-1.20 [facility] Serum globulin measurementOr dered By: Bryan Hernández on 11-30-2024 Globulin (S) [Mass/Vol] 3.1 g/dL 2.2-4.2 [facility] Serum glucose measurement (m ass/volume)Ordered By: Bryan Hernández on 11-30-2024 Glucose [Mass/Vol] 172 mg/dL High 70-99 [facility] Serum or plasma alanine pugh otransferase (ALT) measurementOrdered By: Bryan Hernández on 11-30-2024 ALT [Catalytic activity/Vol] 28 U/L <47 [facility] Serum or plasma albumin werner urement (mass/volume)Ordered By: Karjuni Hernández on 11-30-2024 Albumin [Mass/Vol] 3.7 g/dL 3.4-4.8 [facility] Serum or plasma albumin/glob ulin mass ratioOrdered By: Karjuni Hernández on 11-30-2024 Albumin/Globulin [Mass ratio] 1.2 {ratio} 0.9-2.4 [facility] Serum or plasma alkaline damien sphatase measurementOrdered By: Karlyn Hernández on 11-30-2024 ALP [Catalytic activity/Vol] 154 U/L High 40-129 [facility] Serum or plasma calcium werner urement (mass/volume)Ordered By: Karjuni Hernández on 11-30-2024 Calcium [Mass/Vol] 9.2 mg/dL 7.6-11.0 [facility] Serum or plasma urea nitroge n measurement (mass/volume)Ordered By: Bryan Hernández on 11-30-2024 Urea nitrogen [Mass/Vol] 19 mg/dL 4-19 [facility] Sodium levelOrdered By: Bunny Hernández on 11-30-2024 Sodium [Moles/Vol] 135 mmol/L 133-145 [facility] Teardrop cell detectionOrder ed By: Margarita Levy on 11-30-2024 Dacrocytes LM Ql (Bld) 1+ [facility] Total proteinOrdered By: Kar Hernández on 11-30-2024 Protein [Mass/Vol] 6.8 g/dL 5.9-8.4 [facility] White blood cell (WBC) count Ordered By: Margarita Levy on 11-30-2024 WBC (Bld) [#/Vol] 16.0 10*3/uL High 4.4-11.0 [facility] Natriuretic peptide.B prohor tatyana N-Terminal [Mass/volume] in Serum or PlasmaOrdered By: Margarita Levy on 11-29-2024 Natriuretic peptide.B prohormone N-Terminal [Mass/Vol] 531 pg/mL <1800 [facility] Comment on above: Heart Failure Unlike ly: < 300 pg/mLHeart Failure Likely< 50 Years: > 450 pg/mL50-75 Years: > 900 pg/mL>75 Years: > 1800 pg/mL Activated partial thrombopla stin time (aPTT) in platelet poor plasma by coagulation aOrdered By: Maikel Liang on 11-19-2024 aPTT Coag (PPP) [Time] 29.5 s 24.1-36.2 [facility] Basic Metabolic Profile (BMP )on 11-19-2024 BUN/CRE 18.6 RATIO Normal 10-20 [facility] Comment on above: Performed By: #### L 100.0100, L500.2500, L300.3900, L300.4310 #### [facility] [address] [place], [address] Calcium [Mass/Vol] 9.3 mg/dL Normal 7.6-11.0 [facility] Comment on above: Performed By: #### L 100.0100, L500.2500, L300.3900, L300.4310 #### [facility] [address] [place], [address] Chloride [Moles/Vol] 97 mmol/L Low 98-108 [facility] Comment on above: Performed By: #### L 100.0100, L500.2500, L300.3900, L300.4310 #### [facility] [address] [place], [address] CO2 [Moles/Vol] 25.2 mmol/L Normal 21.0-32.0 [facility] Comment on above: Performed By: #### L 100.0100, L500.2500, L300.3900, L300.4310 #### [facility] [address] [place], [address] Creatinine [Mass/Vol] 1.29 mg/dL High 0.70-1.20 [facility] Comment on above: Performed By: #### L 100.0100, L500.2500, L300.3900, L300.4310 #### [facility] [address] [place], [address] GAP 11 Normal 5-15 [facility] Comment on above: Performed By: #### L 100.0100, L500.2500, L300.3900, L300.4310 #### [facility] [address] [place], [address] GFR/1.73 sq M.predicted among non-blacks MDRD (S/P/Bld) [Vol rate/Area] 58 mL/min/{1.73_m2} Low >60 [facility] Comment on above: Result Comment: mL/m in/1.73m2 CKD-EPI Creatinine Equation (2020) Performed By: #### L 100.0100, L500.2500, L300.3900, L300.4310 #### [facility] [address] [place], [address] Glucose [Mass/Vol] 140 mg/dL High 70-99 [facility] Comment on above: Performed By: #### L 100.0100, L500.2500, L300.3900, L300.4310 #### [facility] [address] [place], [address] Potassium [Moles/Vol] 5.2 mmol/L High 3.3-5.1 [facility] Comment on above: Performed By: #### L 100.0100, L500.2500, L300.3900, L300.4310 #### [facility] [address] [place], [address] Sodium [Moles/Vol] 133 mmol/L Normal 133-145 [facility] Comment on above: Performed By: #### L 100.0100, L500.2500, L300.3900, L300.4310 #### [facility] [address] [place], [address] Urea nitrogen [Mass/Vol] 24 mg/dL High 4-19 [facility] Comment on above: Performed By: #### L 100.0100, L500.2500, L300.3900, L300.4310 #### [facility] [address] [place], [address] CBC W/Diff, Automatedon 06-2 Anisocytosis Ql (Bld) 1+ [facility] Comment on above: Performed By: #### L 100.0100, L500.2500, L300.3900, L300.4310 #### [facility] [address] [place], [address] International normalized rat io (INR) calculationOrdered By: Maikel Liang on 11-19-2024 INR Coag (Bld) [Relative time] 1.3 {INR} [facility] Partial Thromboplast Timeon 11-19-2024 aPTT Coag (Bld) [Time] 29.5 s Normal 24.1-36.2 [facility] Comment on above: Performed By: #### L 100.0100, L500.2500, L300.3900, L300.4310 #### [facility] [address] [place], [address] Prothrombin Time w/INRon INR Coag (PPP) [Relative time] 1.3 {INR} Normal [facility] Comment on above: Performed By: #### L 100.0100, L500.2500, L300.3900, L300.4310 #### [facility] [address] [place], [address] PT Coag (PPP) [Time] 16.1 s High 11.7-14.9 [facility] Comment on above: Performed By: #### L 100.0100, L500.2500, L300.3900, L300.4310 #### [facility] [address] [place], [address] Prothrombin timeOrdered By: Maikel Liang on 11-19-2024 PT Coag (PPP) [Time] 16.1 s High 11.7-14.9 [facility] Cardiology Visit Reporton Cardiology Visit Report [facility] [address] [place] [address] OFFICE VISIT Date of Service: 11/05/24 MR#: [id number] Acct: [id number] Name: ANGI JACKSON Rep #: [id number] : 1950 Provider: MAURO Ramos Age/Sex: 74/M Location[place] [facility] [place] Status: Signed HPI HPI History of Present Illness Details: Angi Jackson is a 74-year-old male who presents to office today for follow-up for monitoring of his cardiovascular health. Patient has a history of atrial fibrillation with controlled ventricular response rate and hypertension. Patient underwent stress test 06/12/2020 that showed evidence of inferoapical ischemia with preserved ejection fraction. Patient proceeded with heart catheterization on 06/20/2020 that showed mild to moderate nonobstructive coronary artery disease with preserved ejection fraction. Patient was hospitalized at [facility] in July 2024 with CHF symptoms and treated with IV diuresis. Echocardiogram 08/12/2024 demonstrated ejection fraction 50-55%, normal diastolic function, moderate mitral valve regurgitation, mild pulmonic and tricuspid valve regurgitation, mildly dilated atrium. Patient underwent nuclear stress test 08/12/2024 resulting in no evidence of significant inducible ischemia or prior myocardial infarction, normal ejection fraction 58% with normal wall motion. BNP was elevated during the hospitalization which then was noted to titrate down. Patient reports utilizing supplemental oxygen while hospitalized; however, was not sent home on oxygen. Patient followed up in the office 08/20/2024 and the 24-hour Holter monitor was ordered as his EKG demonstrated frequent PVCs. 24-hour heart monitor demonstrated 9.6% ventricular ectopy.Patient followed up near the end of August, and had concerns of fluid retention with shortness of breath in which his PCP instructed him to increase his Lasix to twice daily that same day. Since last seen, patient reports he had some time without taking his SGLT2 inhibitor due to insurance concerns. He restarted this a couple days ago. He also de-escalated his diuretic to furosemide 40 mg daily after achieving euvolemia/weight decreasing and has continued with his spironolactone. Upon presentation to office today, patient reports chest pain as described prior; however, does notice that it radiates to the right side now and is described as a stabbing and pinching feeling. This is noticed at rest and occurs 5-7 times per week. He feels his fatigue is about the same and it fluctuates. He continues to experience shortness of breath with prolonged recovery. He does report, along with his daughter, he has been out of some of his inhalers for some time now and this could be contributing to his shortness of breath. He recently restarted them. He reports his dizziness is unchanged. He becomes dizzy with exertion and increased work of breathing. Further ROS below. Intake Vital Signs 09/17/24 11:12 11/05/24 11:21 Height 6 ft 6 ft Weight: 222 lb 213 lb BMI 30.1 28.8 BP 118/65 114/64 Blood Pressure Location Lt brachial Lt brachial Position Sitting Sitting Respiration 18 18 Pulse 64 53 L Pulse Source NIBP Monitor Intake Visit Reasons: 8 W FU Senior Clinical Data Manager Required: No Accompanied by: Daughter Is patient in pain?: No Allergies codeine Allergy (Verified 11/05/24 11:23) HEART RATE IRREGULAR rivaroxaban (From Xarelto) Adverse Reaction (Verified 11/05/24 11:23) Bleeding Medications ???Medication ???Instructions ???Recorded ???Confirmed ???Type fluticasone fur. 100 mcg-umeclid 1 inh inhalation DAILY 09/06/21 History 62.5 mcg-vilant 25 mcg inhalat.powder duloxetine 60 mg capsule,delayed 60 mg PO DAILY 04/25/22 11/05/24 H istory release ondansetron HCl 4 mg tablet 4 mg PO QHS PRN 07/17/23 11/05/24 History albuterol sulfate 90 mcg/actuation inhalation 10/31/23 11/05/24 His tory aerosol inhaler fluticasone propionate 50 spray intranasal 10/31/23 11/05/24 History mcg/actuation nasal spray,suspension metoprolol tartrate 50 mg tablet 50 mg PO BID 10/31/23 11/05/24 His tory omeprazole 40 mg capsule,delayed 40 mg PO BID 10/31/23 11/05/24 His tory release fexofenadine 180 mg tablet 180 mg PO Q24H 08/20/24 11/05/24 H istory pregabalin 50 mg capsule (Lyrica) 50 mg PO BID 08/20/24 11/05/24 Hi story isosorbide mononitrate 30 mg 30 mg PO DAILY #90 TABLETS 5 11/05/24 Rx tablet,extended release 24 hr apixaban 5 mg tablet (Eliquis) 5 mg PO BID 09/17/24 11/05/24 Hist ory atorvastatin 40 mg tablet 40 mg PO QHS 09/17/24 11/05/24 His tory budesonide 160 mcg-glycopyr 9 2 inh inhalation BID 09/17/2410/24 History mcg-formot 4.8 mcg/actuation HFA inhaler (GetAutoBidszTURN8phere) buprenorphine 20 (more content not included)... Normal [facility] Absolute lymphocyte countOrd ered By: Maikel Liang on 09-30-2024 Lymphocytes Auto (Unsp spec) [#/Vol] 1.38 10*3/uL 0.83-4.51 [facility] Absolute neutrophil countOrd ered By: Maikel Liang on 09-30-2024 Neutrophils (Bld) [#/Vol] 11.0 10*3/uL High 2.0-7.7 [facility] Anion gap in Serum or Plasma Ordered By: Maikel Liang on 09-30-2024 Anion gap [Moles/Vol] 12 mmol/L 5-15 [facility] Automated lymphocyte count a s percentage of total leukocytesOrdered By: Maikel Liang on 09-30-2024 Lymphocytes/100 WBC Auto (Unsp spec) 10.0 % Low 19-41 [facility] BUN/creatinine ratioOrdered By: Maikel Liang on 09-30-2024 Urea nitrogen/Creatinine [Mass ratio] 18.7 mg/mg - [facility] Basic Metabolic Profile (BMP )on 09-30-2024 BUN/CRE 18.7 RATIO Normal - [facility] Comment on above: Performed By: #### L 100.0100, L500.2500 ####[facility] [address] [place], [address] Calcium [Mass/Vol] 9.5 mg/dL Normal 7.6-11.0 [facility] Comment on above: Performed By: #### L 100.0100, L500.2500 ####[facility] [address] [place], [address] Chloride [Moles/Vol] 102 mmol/L Normal 98-108 [facility] Comment on above: Performed By: #### L 100.0100, L500.2500 ####[facility] [address] [place], [address] CO2 [Moles/Vol] 23.8 mmol/L Normal 21.0-32.0 [facility] Comment on above: Performed By: #### L 100.0100, L500.2500 ####[facility] [address] [place], [address] Creatinine [Mass/Vol] 1.07 mg/dL Normal 0.70-1.20 [facility] Comment on above: Performed By: #### L 100.0100, L500.2500 ####[facility] [address] [place], [address] GAP 12 Normal 5-15 [facility] Comment on above: Performed By: #### L 100.0100, L500.2500 ####[facility] [address] [place], [address] GFR/1.73 sq M.predicted among non-blacks MDRD (S/P/Bld) [Vol rate/Area] 72 mL/min/{1.73_m2} Normal >60 [facility] Comment on above: Result Comment: mL/m in/1.73m2 CKD-EPI Creatinine Equation (2020) Performed By: #### L 100.0100, L500.2500 ####[facility] [address] [place], [address] Glucose [Mass/Vol] 117 mg/dL High 70-99 [facility] Comment on above: Performed By: #### L 100.0100, L500.2500 ####[facility] [address] [place], [address] Potassium [Moles/Vol] 4.8 mmol/L Normal 3.3-5.1 [facility] Comment on above: Performed By: #### L 100.0100, L500.2500 ####[facility] [address] [place], [address] Sodium [Moles/Vol] 137 mmol/L Normal 133-145 [facility] Comment on above: Performed By: #### L 100.0100, L500.2500 ####[facility] [address] [place], [address] Urea nitrogen [Mass/Vol] 20 mg/dL High 4-19 [facility] Comment on above: Performed By: #### L 100.0100, L500.2500 ####[facility] [address] [place], [address] Basophil percentageOrdered B y: Maikel Maieriter on 09-30-2024 Basophils/100 WBC (Bld) 0.8 % 0-1 [facility] CBC W/Diff, Automatedon Absolute Lymph 1.38 X10 3/uL Normal 0.83-4.51 [facility] Comment on above: Performed By: #### L 100.0100, L500.2500 ####[facility] [address] [place], [address] Absolute Neut 11.0 X10 3/uL High 2.0-7.7 [facility] Comment on above: Performed By: #### L 100.0100, L500.2500 ####[facility] [address] [place], [address] Basophils/100 WBC (Bld) 0.8 % Normal 0-1 [facility] Comment on above: Performed By: #### L 100.0100, L500.2500 ####[facility] [address] [place], [address] Eosinophils/100 WBC (Bld) 1.0 % Normal 0-5 [facility] Comment on above: Performed By: #### L 100.0100, L500.2500 ####[facility] [address] [place], [address] Erythrocyte distribution width (RBC) [Ratio] 18.2 % High 11.6-14.6 [facility] Comment on above: Performed By: #### L 100.0100, L500.2500 ####[facility] [address] [place], [address] Hematocrit (Bld) [Volume fraction] 37.8 % Low 40-54 [facility] Comment on above: Performed By: #### L 100.0100, L500.2500 ####[facility] [address] [place], [address] Hemoglobin (Bld) [Mass/Vol] 11.3 g/dL Low 13.0-16.5 [facility] Comment on above: Performed By: #### L 100.0100, L500.2500 ####[facility] [address] [place], [address] IG% 0.700 Normal 0.0-0.9 [facility] Comment on above: Result Comment: IG% - Immature Granulocytes (promyelocytes, myelocytes and metamyelocytes) > 1% indicates that a LEFT SHIFT is Present. Performed By: #### L 100.0100, L500.2500 ####[facility] [address] [place], [address] Lymphocytes/100 WBC (Bld) 10.0 % Low 19-41 [facility] Comment on above: Performed By: #### L 100.0100, L500.2500 ####[facility] [address] [place], [address] MCH (RBC) [Entitic mass] 22.2 pg Low 27.0-32.0 [facility] Comment on above: Performed By: #### L 100.0100, L500.2500 ####[facility] [address] [place], [address] MCHC (RBC) [Mass/Vol] 29.9 g/dL Low 32-36 [facility] Comment on above: Performed By: #### L 100.0100, L500.2500 ####[facility] [address] [place], [address] MCV (RBC) [Entitic vol] 74.1 fL Low 80-94 [facility] Comment on above: Performed By: #### L 100.0100, L500.2500 ####[facility] [address] [place], [address] Monocytes/100 WBC (Bld) 7.4 % Normal 0-10 [facility] Comment on above: Performed By: #### L 100.0100, L500.2500 ####[facility] [address] [place], [address] Neutrophils/100 WBC (Bld) 80.1 % High 47-70 [facility] Comment on above: Performed By: #### L 100.0100, L500.2500 ####[facility] [address] [place], [address] Nucleated RBC (Bld) [#/Vol] 0 10*3/uL Normal 0-5 [facility] Comment on above: Performed By: #### L 100.0100, L500.2500 ####[facility] [address] [place], [address] Platelet mean volume (Bld) [Entitic vol] 9.1 fL Normal 6.2-12.0 [facility] Comment on above: Performed By: #### L 100.0100, L500.2500 ####[facility] [address] [place], [address] Platelets (Bld) [#/Vol] 427 10*3/uL Normal 150-450 [facility] Comment on above: Performed By: #### L 100.0100, L500.2500 ####[facility] [address] [place], [address] RBC (Bld) [#/Vol] 5.10 10*6/uL Normal 4.6-6.2 [facility] Comment on above: Performed By: #### L 100.0100, L500.2500 ####[facility] [address] [place], [address] RDW SD 47.7 fl High 35.1-43.9 [facility] Comment on above: Performed By: #### L 100.0100, L500.2500 ####[facility] [address] [place], [address] WBC (Bld) [#/Vol] 13.7 10*3/uL High 4.4-11.0 [facility] Comment on above: Performed By: #### L 100.0100, L500.2500 ####[facility] [address] [place], [address] Carbon dioxide, total [Moles /volume] in Central venous bloodOrdered By: Maikel Liang on 09-30-2024 CO2 [Moles/Vol] 23.8 mmol/L 21.0-32.0 [facility] Chloride assayOrdered By: Mary Kate Liang on 09-30-2024 Chloride [Moles/Vol] 102 mmol/L 98-108 [facility] Eosinophil percentageOrdered By: Maikel Liang on 09-30-2024 Eosinophils/100 WBC (Bld) 1.0 % 0-5 [facility] Erythrocyte distribution wid th ratioOrdered By: Maikeltashi Liang on 09-30-2024 Erythrocyte distribution width (RBC) [Ratio] 18.2 % High 11.6-14.6 [facility] Erythrocyte distribution wid th standard deviationOrdered By: Maikeltashi Liang on 09-30-2024 Erythrocyte distribution width (RBC) [Ratio] 47.7 fl High 35.1-43.9 [facility] Glomerular filtration rate ( GFR) estimation/1.73 sq m using serum, plasma, or whole bOrdered By: Maikeltashi Liang on 09-30-2024 GFR/1.73 sq M.predicted among non-blacks MDRD (S/P/Bld) [Vol rate/Area] 72 mL/min/{1.73_m2} >60 [facility] Comment on above: mL/min/1.73m2 CKD-EP I Creatinine Equation (2020) Hematocrit Auto (Bld) [Volum e fraction]Ordered By: [facility] Garth on 09-30-2024 Hematocrit (Bld) [Volume fraction] 37.8 % Low 40-54 [facility] Hemoglobin measurementOrdere d By: Maikel Liang on 09-30-2024 Hemoglobin (Bld) [Mass/Vol] 11.3 g/dL Low 13.0-16.5 [facility] Immature granulocytes/100 WB C Auto (Bld)Ordered By: Maikel Liang on 09-30-2024 Immature granulocytes/100 WBC (Bld) 0.700 % 0.0-0.9 [facility] Comment on above: IG% - Immature Granu locytes (promyelocytes, myelocytes and metamyelocytes) > 1% indicates that a LEFT SHIFT is Present. MCV (mean corpuscular volume ) determinationOrdered By: Maikel Liang on 09-30-2024 MCV (RBC) [Entitic vol] 74.1 fL Low 80-94 [facility] Mean corpuscular hemoglobin (MCH) determinationOrdered By: Maikel Liang on 09-30-2024 MCH (RBC) [Entitic mass] 22.2 pg Low 27.0-32.0 [facility] Mean corpuscular hemoglobin concentration (MCHC) determinationOrdered By: Maikel Liang on 09-30-2024 MCHC (RBC) [Mass/Vol] 29.9 g/dL Low 32-36 [facility] Mean platelet volume determi nationOrdered By: Maikel Liang on 09-30-2024 Platelet mean volume (Bld) [Entitic vol] 9.1 fL 6.2-12.0 [facility] Monocyte percentageOrdered B y: Maikel Liang on 09-30-2024 Monocytes/100 WBC (Bld) 7.4 % 0-10 [facility] Neutrophil percentageOrdered By: Maikel Liang on 09-30-2024 Neutrophils/100 WBC (Bld) 80.1 % High 47-70 [facility] Nucleated red blood cell per centageOrdered By: Maikel Liang on 09-30-2024 Nucleated RBC/100 WBC (Bld) [Ratio] 0 % 0-5 [facility] Platelet countOrdered By: Mary Kate Liang on 09-30-2024 Platelets (Bld) [#/Vol] 427 10*3/uL 150-450 [facility] Potassium measurement (mass/ volume)Ordered By: Maikel Liang on 09-30-2024 Potassium (Unsp spec) [Mass/Vol] 4.8 mmol/L 3.3-5.1 [facility] RBC Auto (Bld) [#/Vol]Ordere d By: Maikel Liang on 09-30-2024 RBC (Bld) [#/Vol] 5.10 10*6/uL 4.6-6.2 [facility] Serum creatinine measurement (mass/volume)Ordered By: Maikel Liang on 09-30-2024 Creatinine [Mass/Vol] 1.07 mg/dL 0.70-1.20 [facility] Serum glucose measurement (m ass/volume)Ordered By: Maikel Liang on 09-30-2024 Glucose [Mass/Vol] 117 mg/dL High 70-99 [facility] Serum or plasma calcium werner urement (mass/volume)Ordered By: Maikel Liang on 09-30-2024 Calcium [Mass/Vol] 9.5 mg/dL 7.6-11.0 [facility] Serum or plasma urea nitroge n measurement (mass/volume)Ordered By: Maikel Liang on 09-30-2024 Urea nitrogen [Mass/Vol] 20 mg/dL High 4-19 [facility] Sodium levelOrdered By: hiren Liang on 09-30-2024 Sodium [Moles/Vol] 137 mmol/L 133-145 [facility] White blood cell (WBC) count Ordered By: Maikel Liang on 09-30-2024 WBC (Bld) [#/Vol] 13.7 10*3/uL High 4.4-11.0 [facility] Cardiology Visit Reporton Cardiology Visit Report [facility]. [address] [place] [address] OFFICE VISIT Date of Service: 09/17/24 MR#: [id number] Acct: [id number] Name: ANGI JACKSON Rep #: [id number] : 1950 Provider: MAURO Ramos Age/Sex: 74/M Location: [facility] Status: Signed HPI HPI History of Present Illness Details: Angi Jackson is a 74-year-old male who presents to office today for follow-up for monitoring of his cardiovascular health. Patient has a history of atrial fibrillation with controlled ventricular response rate and hypertension. Patient underwent stress test 06/12/2020 that showed evidence of inferoapical ischemia with preserved ejection fraction. Patient proceeded with heart catheterization on 06/20/2020 that showed mild to moderate nonobstructive coronary artery disease with preserved ejection fraction. Patient was hospitalized at [facility] 08/14 - 08/16/2024 for CHF. Patient was treated with IV diuresis and transition to p.o. upon discharge. Patient had echocardiogram performed 08/16/2024 that revealed ejection fraction 50-55%, normal diastolic function, moderate mitral valve regurgitation, mild pulmonic and tricuspid valve regurgitation, mildly dilated atrium. Patient underwent nuclear stress test 08/12/2024 resulting in no evidence of significant inducible ischemia or prior myocardial infarction, normal ejection fraction 58% with normal wall motion. BNP 08/14/2024 2398 and repeat 08/15/2024 1651. Kidney function appeared stable while hospitalized. Patient reports utilizing supplemental oxygen while hospitalized; however, was not sent home on oxygen. Of note, patient did have hypokalemia while hospitalized; however, potassium was not listed on discharge medications. Patient was seen in office for hospital follow-up 08/20/2024. BNP 08/20/2024 further decreased from previous check at 1075, CXR demonstrated cardiomegaly with mild congestion. Patient underwent 24- hour heart monitor to assess for ventricular ectopy given EKG in office at that time demonstrated frequent ectopic ventricular beats. 24-hour heart monitor demonstrated 9.6% ventricular ectopy. Patient was instructed to continue furosemide 40 mg daily. BMP from 09/01/2024 with potassium 4.6 and stable kidney function. Patient was seen by PCP, Dr. Brush prior to our appointment today in which patient reported increasing shortness of breath and Dr. Brush placed patient on Lasix twice daily. Dr. Brush encouraged patient to discuss initiation of Entresto with us. Upon discussion in office today, patient reports fatigue and weakness is about the same as previously thought. Patient was initially doing better after last appointment but then started retaining fluid and not feeling well this week. Patient reports increased SOB this week. Pulse ox at home with HR all over 2/2 being in atrial fibrillation and normal SpO2. Patient notices LE edema but is not as bad as when he was in the hospital. When climbing stairs, he continues to experience dizziness; however, does report O2 is in the 90s when checking. Patient's symptoms appear to worsen with fluid overload. Patient reports occasional chest pain described as a sharp pain associated with a fluttering feeling, this occurs at rest. Patient notes an increase in chest pain frequency over the last month. He reports increase in weight of 7 pounds (215lbs 2 weeks ago, 222 today). Further ROS below. Intake Vital Signs 08/20/24 07:58 09/17/24 11:12 Height 6 ft 6 ft Weight: 222 lb BMI 30.1 BP 118/65 Blood Pressure Location Lt brachial Position Sitting Respiration 18 Pulse 64 Pulse Source NIBP Intake Visit Reasons: 4 W FU Senior Clinical Data Manager Required: No Accompanied by: Daughter Is patient in pain?: No Allergies codeine Allergy (Verified 09/17/24 11:13) HEART RATE IRREGULAR rivaroxaban (From Xarelto) Adverse Reaction (Verified 09/17/24 11:13) Bleeding Medications ???Medication ???Instructions ???Recorded ???Confirmed ???Type magnesium oxide 400 mg PO QHS Check with primary 1 07/09/17 09/17/24 History doctor fluticasone fur. 100 mcg-umeclid 1 inh inhalation DAILY 09/06/21 History 62.5 mcg-vilant 25 mcg inhalat.powder duloxetine 60 mg capsule,delayed 60 mg PO DAILY 04/25/22 09/17/24 H istory release ondansetron HCl 4 mg tablet 4 mg PO QHS PRN 07/17/23 09/17/24 History albuterol sulfate 90 mcg/actuation inhalation 10/31/23 09/17/24 His tory aerosol inhaler fluticasone propionate 50 spray intranasal 10/31/23 09/17/24 History mcg/actuation nasal spray,suspension metoprolol tartrate 50 mg tablet 50 mg PO BID 10/31/23 09/17/24 His tory omeprazole 40 mg capsule,delayed 40 mg PO BID 10/31/23 09/17/24 His tory release fexofenadine 180 mg tablet 180 mg PO Q24H 08/20/2409/17 (more content not included)... Normal [facility] Thyroid Stim Hormone (TSH)on 09-02-2024 TSH 1.470 uIU/mL Normal 0.300-4.200 [facility] Comment on above: Order Comment: *ADD ON*PLEASE ADD ON TSH TO LABS DONE ON 09/01/24 Performed By: #### L 500.4100, L100.0100, L500.4050, L3890.6301, L506.1001, L501.9520 ####[facility] [address] [place], [address] Absolute lymphocyte countOrd ered By: Jovany Brush on 09-01-2024 Lymphocytes Auto (Unsp spec) [#/Vol] 1.42 10*3/uL 0.83-4.51 [facility] Absolute neutrophil countOrd ered By: Jovany Brush on 09-01-2024 Neutrophils (Bld) [#/Vol] 9.4 10*3/uL High 2.0-7.7 [facility] Anion gap in Serum or Plasma Ordered By: Jovany Gonsalo on 09-01-2024 Anion gap [Moles/Vol] 12 mmol/L 5-15 [facility] Automated lymphocyte count a s percentage of total leukocytesOrdered By: Jovany Gonsalo on 09-01-2024 Lymphocytes/100 WBC Auto (Unsp spec) 11.7 % Low 19-41 [facility] BUN/creatinine ratioOrdered By: Jovany Brush on 09-01-2024 Urea nitrogen/Creatinine [Mass ratio] 17.0 mg/mg 10-20 [facility] Basophil percentageOrdered B y: Jovany Gonsalo on 09-01-2024 Basophils/100 WBC (Bld) 0.7 % 0-1 [facility] Bilirubin, totalOrdered By: Jovany Gonsalo on 09-01-2024 Bilirubin [Mass/Vol] 0.62 mg/dL 0.00-1.30 [facility] CBC W/Diff, Automatedon Absolute Lymph 1.42 X10 3/uL Normal 0.83-4.51 [facility] Comment on above: Performed By: #### L 500.4100, L100.0100, L500.4050, L3890.6301, L506.1001, L501.9520 ####[facility] [address] [place], [address] Absolute Neut 9.4 X10 3/uL High 2.0-7.7 [facility] Comment on above: Performed By: #### L 500.4100, L100.0100, L500.4050, L3890.6301, L506.1001, L501.9520 ####[facility] [address] [place], [address] Basophils/100 WBC (Bld) 0.7 % Normal 0-1 [facility] Comment on above: Performed By: #### L 500.4100, L100.0100, L500.4050, L3890.6301, L506.1001, L501.9520 ####[facility] [address] [place], [address] Eosinophils/100 WBC (Bld) 1.6 % Normal 0-5 [facility] Comment on above: Performed By: #### L 500.4100, L100.0100, L500.4050, L3890.6301, L506.1001, L501.9520 ####[facility] [address] [place], [address] Erythrocyte distribution width (RBC) [Ratio] 18.0 % High 11.6-14.6 [facility] Comment on above: Performed By: #### L 500.4100, L100.0100, L500.4050, L3890.6301, L506.1001, L501.9520 ####[facility] [address] [place], [address] Hematocrit (Bld) [Volume fraction] 39.5 % Low 40-54 [facility] Comment on above: Performed By: #### L 500.4100, L100.0100, L500.4050, L3890.6301, L506.1001, L501.9520 ####[facility] [address] [place], [address] Hemoglobin (Bld) [Mass/Vol] 11.8 g/dL Low 13.0-16.5 [facility] Comment on above: Performed By: #### L 500.4100, L100.0100, L500.4050, L3890.6301, L506.1001, L501.9520 ####[facility] [address] [place], [address] IG% 0.500 Normal 0.0-0.9 [facility] Comment on above: Result Comment: IG% - Immature Granulocytes (promyelocytes, myelocytes and metamyelocytes) > 1% indicates that a LEFT SHIFT is Present. Performed By: #### L 500.4100, L100.0100, L500.4050, L3890.6301, L506.1001, L501.9520 ####[facility] [address] [place], [address] Lymphocytes/100 WBC (Bld) 11.7 % Low 19-41 [facility] Comment on above: Performed By: #### L 500.4100, L100.0100, L500.4050, L3890.6301, L506.1001, L501.9520 ####[facility] [address] [place], [address] MCH (RBC) [Entitic mass] 22.7 pg Low 27.0-32.0 [facility] Comment on above: Performed By: #### L 500.4100, L100.0100, L500.4050, L3890.6301, L506.1001, L501.9520 ####[facility] [address] [place], [address] MCHC (RBC) [Mass/Vol] 29.9 g/dL Low 32-36 [facility] Comment on above: Performed By: #### L 500.4100, L100.0100, L500.4050, L3890.6301, L506.1001, L501.9520 ####[facility] [address] [place], [address] MCV (RBC) [Entitic vol] 76.0 fL Low 80-94 [facility] Comment on above: Performed By: #### L 500.4100, L100.0100, L500.4050, L3890.6301, L506.1001, L501.9520 ####[facility] [address] [place], [address] Monocytes/100 WBC (Bld) 8.2 % Normal 0-10 [facility] Comment on above: Performed By: #### L 500.4100, L100.0100, L500.4050, L3890.6301, L506.1001, L501.9520 ####[facility] [address] [place], [address] Neutrophils/100 WBC (Bld) 77.3 % High 47-70 [facility] Comment on above: Performed By: #### L 500.4100, L100.0100, L500.4050, L3890.6301, L506.1001, L501.9520 ####[facility] [address] [place], [address] Nucleated RBC (Bld) [#/Vol] 0 10*3/uL Normal 0-5 [facility] Comment on above: Performed By: #### L 500.4100, L100.0100, L500.4050, L3890.6301, L506.1001, L501.9520 ####[facility] [address] [place], [address] Platelet mean volume (Bld) [Entitic vol] 9.2 fL Normal 6.2-12.0 [facility] Comment on above: Performed By: #### L 500.4100, L100.0100, L500.4050, L3890.6301, L506.1001, L501.9520 ####[facility] [address] [place], [address] Platelets (Bld) [#/Vol] 424 10*3/uL Normal 150-450 [facility] Comment on above: Performed By: #### L 500.4100, L100.0100, L500.4050, L3890.6301, L506.1001, L501.9520 ####[facility] [address] [place], [address] RBC (Bld) [#/Vol] 5.20 10*6/uL Normal 4.6-6.2 [facility] Comment on above: Performed By: #### L 500.4100, L100.0100, L500.4050, L3890.6301, L506.1001, L501.9520 ####[facility] [address] [place], [address] RDW SD 48.5 fl High 35.1-43.9 [facility] Comment on above: Performed By: #### L 500.4100, L100.0100, L500.4050, L3890.6301, L506.1001, L501.9520 ####[facility] [address] [place], [address] WBC (Bld) [#/Vol] 12.1 10*3/uL High 4.4-11.0 [facility] Comment on above: Performed By: #### L 500.4100, L100.0100, L500.4050, L3890.6301, L506.1001, L501.9520 ####[facility] [address] [place], [address] Calculated very low density lipoprotein (VLDL) cholesterol measurementOrdered By: Jovany Brush on 09-01-2024 Calculated very low density lipoprotein (VLDL) cholesterol measurement 27 mg/dL 5-40 [facility] VLDL Cholesterol 27 mg/dL -40 [facility] Carbon dioxide, total [Moles /volume] in Central venous bloodOrdered By: Jovany Brush on 09-01-2024 CO2 [Moles/Vol] 23.6 mmol/L 21.0-32.0 [facility] Chloride assayOrdered By: Dahrmesh Brush on 09-01-2024 Chloride [Moles/Vol] 102 mmol/L 98-108 [facility] Comprehensive Metabolic Prof ilon 09-01-2024 Albumin [Mass/Vol] 4.2 g/dL Normal 3.4-4.8 [facility] Comment on above: Order Comment: TSH Performed By: #### L 500.4100, L100.0100, L500.4050, L3890.6301, L506.1001, L501.9520 ####[facility] [address] [place], [address] Albumin/Globulin [Mass ratio] 1.2 {ratio} Normal 0.9-2.4 [facility] Comment on above: Order Comment: TSH Performed By: #### L 500.4100, L100.0100, L500.4050, L3890.6301, L506.1001, L501.9520 ####[facility] [address] [place], [address] ALK PHOS 144 U/L High 40-129 [facility] Comment on above: Order Comment: TSH Performed By: #### L 500.4100, L100.0100, L500.4050, L3890.6301, L506.1001, L501.9520 ####[facility] [address] [place], [address] ALT [Catalytic activity/Vol] 21 U/L Normal <=46 [facility] Comment on above: Order Comment: TSH Performed By: #### L 500.4100, L100.0100, L500.4050, L3890.6301, L506.1001, L501.9520 ####[facility] [address] [place], [address] AST [Catalytic activity/Vol] 26 U/L Normal <=37 [facility] Comment on above: Order Comment: TSH Performed By: #### L 500.4100, L100.0100, L500.4050, L3890.6301, L506.1001, L501.9520 ####[facility] [address] [place], [address] Bilirubin [Mass/Vol] 0.62 mg/dL Normal 0.00-1.30 [facility] Comment on above: Order Comment: TSH Performed By: #### L 500.4100, L100.0100, L500.4050, L3890.6301, L506.1001, L501.9520 ####[facility] [address] [place], [address] BUN/CRE 17.0 RATIO Normal 10-20 [facility] Comment on above: Order Comment: TSH Performed By: #### L 500.4100, L100.0100, L500.4050, L3890.6301, L506.1001, L501.9520 ####[facility] [address] [place], [address] Calcium [Mass/Vol] 9.7 mg/dL Normal 7.6-11.0 [facility] Comment on above: Order Comment: TSH Performed By: #### L 500.4100, L100.0100, L500.4050, L3890.6301, L506.1001, L501.9520 ####[facility] [address] [place], [address] Chloride [Moles/Vol] 102 mmol/L Normal 98-108 [facility] Comment on above: Order Comment: TSH Performed By: #### L 500.4100, L100.0100, L500.4050, L3890.6301, L506.1001, L501.9520 ####[facility] [address] [place], [address] CO2 [Moles/Vol] 23.6 mmol/L Normal 21.0-32.0 [facility] Comment on above: Order Comment: TSH Performed By: #### L 500.4100, L100.0100, L500.4050, L3890.6301, L506.1001, L501.9520 ####[facility] [address] [place], [address] Creatinine [Mass/Vol] 0.76 mg/dL Normal 0.70-1.20 [facility] Comment on above: Order Comment: TSH Performed By: #### L 500.4100, L100.0100, L500.4050, L3890.6301, L506.1001, L501.9520 ####[facility] [address] [place], [address] GAP 12 Normal 5-15 [facility] Comment on above: Order Comment: TSH Performed By: #### L 500.4100, L100.0100, L500.4050, L3890.6301, L506.1001, L501.9520 ####[facility] [address] [place], [address] GFR/1.73 sq M.predicted among non-blacks MDRD (S/P/Bld) [Vol rate/Area] 94 mL/min/{1.73_m2} Normal >60 [facility] Comment on above: Order Comment: TSH Result Comment: mL/m in/1.73m2 CKD-EPI Creatinine Equation (2020) Performed By: #### L 500.4100, L100.0100, L500.4050, L3890.6301, L506.1001, L501.9520 ####[facility] [address] [place], [address] Globulin (S) [Mass/Vol] 3.5 g/dL Normal 2.2-4.2 [facility] Comment on above: Order Comment: TSH Performed By: #### L 500.4100, L100.0100, L500.4050, L3890.6301, L506.1001, L501.9520 ####[facility] [address] [place], [address] Glucose [Mass/Vol] 117 mg/dL High 70-99 [facility] Comment on above: Order Comment: TSH Performed By: #### L 500.4100, L100.0100, L500.4050, L3890.6301, L506.1001, L501.9520 ####[facility] [address] [place], [address] Potassium [Moles/Vol] 4.6 mmol/L Normal 3.3-5.1 [facility] Comment on above: Order Comment: TSH Performed By: #### L 500.4100, L100.0100, L500.4050, L3890.6301, L506.1001, L501.9520 ####[facility] [address] [place], [address] Sodium [Moles/Vol] 138 mmol/L Normal 133-145 [facility] Comment on above: Order Comment: TSH Performed By: #### L 500.4100, L100.0100, L500.4050, L3890.6301, L506.1001, L501.9520 ####[facility] [address] [place], [address] T PROT 7.7 g/dL Normal 5.9-8.4 [facility] Comment on above: Order Comment: TSH Performed By: #### L 500.4100, L100.0100, L500.4050, L3890.6301, L506.1001, L501.9520 ####[facility] [address] [place], [address] Urea nitrogen [Mass/Vol] 13 mg/dL Normal 4-19 [facility] Comment on above: Order Comment: TSH Performed By: #### L 500.4100, L100.0100, L500.4050, L3890.6301, L506.1001, L501.9520 ####[facility] [address] [place], [address] Eosinophil percentageOrdered By: Jovany german 09-01-2024 Eosinophils/100 WBC (Bld) 1.6 % 0-5 [facility] Erythrocyte distribution wid th (RBC) [Ratio]Ordered By: Jovany Brush on 09-01-2024 Erythrocyte distribution width (RBC) [Entitic vol] 48.5 fL High 35.1-43.9 [facility] Erythrocyte distribution wid th ratioOrdered By: Jovany Brush on 09-01-2024 Erythrocyte distribution width (RBC) [Ratio] 18.0 % High 11.6-14.6 [facility] Erythrocyte distribution wid th standard deviationOrdered By: Jovany Brush on 09-01-2024 Erythrocyte distribution width (RBC) [Ratio] 48.5 fl High 35.1-43.9 [facility] GFR/1.73 sq M.predicted qiana g non-blacks MDRD (S/P/Bld) [Vol rate/Area]Ordered By: Jovany Brush on 09-01-2024 Estimated GFR (MDRD) Non-Af Amer 94 >60 [facility] Comment on above: mL/min/1.73m2 CKD-EP I Creatinine Equation (2020) Glomerular filtration rate ( GFR) estimation/1.73 sq m using serum, plasma, or whole bOrdered By: Jovany Brush on 09-01-2024 GFR/1.73 sq M.predicted among non-blacks MDRD (S/P/Bld) [Vol rate/Area] 94 mL/min/{1.73_m2} >60 [facility] Comment on above: mL/min/1.73m2 CKD-EP I Creatinine Equation (2020) Hematocrit Auto (Bld) [Volum e fraction]Ordered By: Jovany Brush on 09-01-2024 Hematocrit (Bld) [Volume fraction] 39.5 % Low 40-54 [facility] Hemoglobin measurementOrdere d By: Jovany Brush on 09-01-2024 Hemoglobin (Bld) [Mass/Vol] 11.8 g/dL Low 13.0-16.5 [facility] Hepatitis C Antibodyon 09-01 Hepatitis C Ab Non-Reactive Normal Nonreactive [facility] Comment on above: Result Comment: Reac tive: Presumptive evidence of antibodies to HCV. Follow CDC recommendations for supplemental testing. Non-Reactive: Antibodies to HCV were not detected; does not exclude the possibility of exposure to HCV Reactive Results are presumptive evidence of antibodies to HCV. Follow CDC recommendations for supplemental testing. Order confirmation testing: HCV Quant by PCR testing - HCVPCR lc#[id number] Non Reactive: < 0.8 Equivocal: >/= 0.8 to < 1.0 Reactive: >/= 1.0 The CDC requires that a reactive/equivocal HCV antibody result be sent out for confirmation. HCV Quant by PCR testing. Performed By: #### L 500.4100, L100.0100, L500.4050, L3890.6301, L506.1001, L501.9520 ####[facility] [address] [place], [address] Hepatitis C antibodyOrdered By: Jovany rBush on 09-01-2024 Hepatitis C Antibody Non-Reactive Nonreactive [facility] Comment on above: Reactive: Presumptiv e evidence of antibodies to HCV. Follow CDC recommendations for supplemental testing.Non-Reactive: Antibodies to HCV were not detected; does not exclude the possibility of exposure to HCVReactive Results are presumptive evidence of antibodies to HCV. Follow CDC recommendations for supplemental testing.Order confirmation testing: HCV Quant by PCR testing - HCVPCR lc#[id number] Non Reactive: < 0.8 Equivocal: >/= 0.8 to < 1.0 Reactive: >/= 1.0The CDC requires that a reactive/equivocal HCV antibody result be sent out for confirmation. HCV Quant by PCR testing. Immature granulocytes/100 WB C Auto (Bld)Ordered By: Jovany Brush on 09-01-2024 Immature granulocytes/100 WBC (Bld) 0.500 % 0.0-0.9 [facility] Comment on above: IG% - Immature Granu locytes (promyelocytes, myelocytes and metamyelocytes) > 1% indicates that a LEFT SHIFT is Present. LDL calc ser/plasOrdered By: Jovany Brush on 09-01-2024 Cholesterol in LDL [Mass/Vol] 101 mg/dL [facility] Comment on above: Xjvwysuquv=532-363 m g/dL & Higher Fitz=908 mg/dL or greater LDL Cholesterol, Calculated 101 mg/dL [facility] Comment on above: Nqxgzixpls=061-479 m g/dL & Higher Oscc=602 mg/dL or greater Laboratory - Chemistry and C hemistry - challengeOrdered By: Jovany Brush on 09-01-2024 AST [Catalytic activity/Vol] 26 U/L <38 [facility] Lipid Profileon 09-01-2024 CHOL:HDL 4.48 Normal [facility] Comment on above: Performed By: #### L 500.4100, L100.0100, L500.4050, L3890.6301, L506.1001, L501.9520 ####[facility] [address] [place], [address] Cholesterol [Mass/Vol] 165 mg/dL Normal <=200 [facility] Comment on above: Result Comment: Chol esterol level, Desirable <200 mg/dL Borderline high cholesterol 200-239 mg/dL High cholesterol >=240 mg/dL Recommendations of the NCEP Adult Treatment Panel for the following risk-cutoff thresholds for the [place] population. Performed By: #### L 500.4100, L100.0100, L500.4050, L3890.6301, L506.1001, L501.9520 ####[facility] [address] [place], [address] Cholesterol in HDL [Mass/Vol] 37 mg/dL Low [facility] Comment on above: Result Comment: Blanca onal Cholesterol Education Program (NCEP) guidelines: <40 mg/dL: Low HDL-cholesterol (major risk factor for CHD) >= 60 mg/dL: High HDL-cholesterol (negative risk factor for CHD) HDL-cholesterol is affected by a number of factors, e.g. smoking, exercise, hormones, sex and age. Performed By: #### L 500.4100, L100.0100, L500.4050, L3890.6301, L506.1001, L501.9520 ####[facility] [address] [place], [address] Cholesterol in LDL [Mass/Vol] 101 mg/dL Normal [facility] Comment on above: Result Comment: Bord hgigqe=190-968 mg/dL Higher Eqjg=602 mg/dL or greater Performed By: #### L 500.4100, L100.0100, L500.4050, L3890.6301, L506.1001, L501.9520 ####[facility] [address] [place], [address] Cholesterol in VLDL [Mass/Vol] 27 mg/dL Normal 5-40 [facility] Comment on above: Performed By: #### L 500.4100, L100.0100, L500.4050, L3890.6301, L506.1001, L501.9520 ####[facility] [address] [place], [address] Triglyceride [Mass/Vol] 136 mg/dL Normal [facility] Comment on above: Result Comment: The drugs N-Acetylcysteine and Metamizole may falsely depress this assay. Normal range: <150 mg/dL Borderline High: 150-199 mg/dL High: 200-499 mg/dL Very High: >500 mg/dL Performed By: #### L 500.4100, L100.0100, L500.4050, L3890.6301, L506.1001, L501.9520 ####[facility] [address] [place], [address] Lymphocytes Auto (Unsp spec) [#/Vol]Ordered By: Jovany Brush on 09-01-2024 Lymphocytes (Bld) [#/Vol] 1.42 10*3/uL 0.83-4.51 [facility] Lymphocytes/100 WBC Auto (Un sp spec)Ordered By: Jovany Brush on 09-01-2024 Lymphocytes/100 WBC (Bld) 11.7 % Low 19-41 [facility] MCV (mean corpuscular volume ) determinationOrdered By: Jovany Brush on 09-01-2024 MCV (RBC) [Entitic vol] 76.0 fL Low 80-94 [facility] Mean corpuscular hemoglobin (MCH) determinationOrdered By: Jovany Brush on 09-01-2024 MCH (RBC) [Entitic mass] 22.7 pg Low 27.0-32.0 [facility] Mean corpuscular hemoglobin concentration (MCHC) determinationOrdered By: Jovany Brush on 09-01-2024 MCHC (RBC) [Mass/Vol] 29.9 g/dL Low 32-36 [facility] Mean platelet volume determi nationOrdered By: Jovany Brush on 09-01-2024 Platelet mean volume (Bld) [Entitic vol] 9.2 fL 6.2-12.0 [facility] Monocyte percentageOrdered B y: Jovany Brush on 09-01-2024 Monocytes/100 WBC (Bld) 8.2 % 0-10 [facility] Neutrophil percentageOrdered By: Jovany Brush on 09-01-2024 Neutrophils/100 WBC (Bld) 77.3 % High 47-70 [facility] Nucleated red blood cell per centageOrdered By: Jovany Brush on 09-01-2024 Nucleated RBC/100 WBC (Bld) [Ratio] 0 % 0-5 [facility] Platelet countOrdered By: Dharmesh Brush on 09-01-2024 Platelets (Bld) [#/Vol] 424 10*3/uL 150-450 [facility] Potassium (Unsp spec) [Mass/ Vol]Ordered By: Jovany Brush on 09-01-2024 Potassium [Moles/Vol] 4.6 mmol/L 3.3-5.1 [facility] Potassium measurement (mass/ volume)Ordered By: Jovany Brush on 09-01-2024 Potassium (Unsp spec) [Mass/Vol] 4.6 mmol/L 3.3-5.1 [facility] RBC Auto (Bld) [#/Vol]Ordere d By: Jovany Brush on 09-01-2024 RBC (Bld) [#/Vol] 5.20 10*6/uL 4.6-6.2 [facility] Screening total cholesterol/ high density lipoprotein (HDL) cholesterol ratioOrdered By: Jovany Brush on 09-01-2024 Cholesterol.total/Molly sterol in HDL [Mass ratio] 4.48 {ratio} [facility] Serum creatinine measurement (mass/volume)Ordered By: Jovany Brush on 09-01-2024 Creatinine [Mass/Vol] 0.76 mg/dL 0.70-1.20 [facility] Serum globulin measurementOr dered By: Jovany Brush on 09-01-2024 Globulin (S) [Mass/Vol] 3.5 g/dL 2.2-4.2 [facility] Serum glucose measurement (m ass/volume)Ordered By: Jovany Brush on 09-01-2024 Glucose [Mass/Vol] 117 mg/dL High 70-99 [facility] Serum or plasma alanine pugh otransferase (ALT) measurementOrdered By: Jovany Brush on 09-01-2024 ALT [Catalytic activity/Vol] 21 U/L <47 [facility] Serum or plasma albumin werner urement (mass/volume)Ordered By: Jovany Brush 09-01-2024 Albumin [Mass/Vol] 4.2 g/dL 3.4-4.8 [facility] Serum or plasma albumin/glob ulin mass ratioOrdered By: Jovany Brush 09-01-2024 Albumin/Globulin [Mass ratio] 1.2 {ratio} 0.9-2.4 [facility] Serum or plasma alkaline damien sphatase measurementOrdered By: Jovany Brush 09-01-2024 ALP [Catalytic activity/Vol] 144 U/L High 40-129 [facility] Serum or plasma calcium werner urement (mass/volume)Ordered By: Jovany Brush 09-01-2024 Calcium [Mass/Vol] 9.7 mg/dL 7.6-11.0 [facility] Serum or plasma cholesterol in HDL measurement (mass/volume)Ordered By: Jovany Brush on 09-01-2024 Cholesterol in HDL [Mass/Vol] 37 mg/dL Low >40 [facility] Comment on above: National Cholesterol Education Program (NCEP) guidelines:<40 mg/dL: Low HDL-cholesterol (major risk factor for CHD)>= 60 mg/dL: High HDL-cholesterol (negative risk factor for CHD)HDL-cholesterol is affected by a number of factors, e.g. smoking, exercise, hormones, sex and age. Serum or plasma cholesterol measurement (mass/volume)Ordered By: Jovany Brush 09-01-2024 Cholesterol [Mass/Vol] 165 mg/dL <201 [facility] Comment on above: Cholesterol level, D esirable <200 mg/dLBorderline high cholesterol 200-239 mg/dLHigh cholesterol >=240 mg/dLRecommendations of the NCEP Adult Treatment Panel for the following risk-cutoff thresholds for the [place] population. Serum or plasma urea nitroge n measurement (mass/volume)Ordered By: Jovany Brush on 09-01-2024 Urea nitrogen [Mass/Vol] 13 mg/dL 4-19 [facility] Sodium levelOrdered By: Jovany Brush on 09-01-2024 Sodium [Moles/Vol] 138 mmol/L 133-145 [facility] TSH DL <= 0.005 mIU/L QnOrde red By: Jovany Brush on 09-01-2024 Thyroid Stimulating Hormone (TSH) 1.470 uIU/mL 0.300-4.200 [facility] TSH Qn 1.470 uIU/mL 0.300-4.200 [facility] Total proteinOrdered By: Jovany Brush on 09-01-2024 Protein [Mass/Vol] 7.7 g/dL 5.9-8.4 [facility] Triglycerides measurementOrd ered By: Jovany Brush on 09-01-2024 Triglyceride [Mass/Vol] 136 mg/dL <199 [facility] Comment on above: The drugs N-Acetylcy steine and Metamizole may falsely depress this assay. Normal range: <150 mg/dLBorderline High: 150-199 mg/dLHigh: 200-499 mg/dLVery High: >500 mg/dL Vitamin D, 25-hydroxyOrdered By: Jovany Brush on 09-01-2024 Vitamin D 25-Hydroxy 28.1 ng/mL Low 30-100 [facility] Comment on above: Vitamin D StatusDefi ciency: <20 ng/mL (50nmol/L)Insufficiency: 20-30 ng/mL (50-75 nmol/L)Sufficiency: 30-100 ng/mL (75-250 nmol/L)Toxicity: >100 ng/mL (>250 nmol/L) Vitamin D,25 Hydroxyon 09-01 Vitamin D 25-OH 28.1 ng/mL Low 30-100 [facility] Comment on above: Result Comment: Daysi min D Status Deficiency: <20 ng/mL (50nmol/L) Insufficiency: 20-30 ng/mL (50-75 nmol/L) Sufficiency: 30-100 ng/mL (75-250 nmol/L) Toxicity: >100 ng/mL (>250 nmol/L) Performed By: #### L 500.4100, L100.0100, L500.4050, L3890.6301, L506.1001, L501.9520 ####[facility] [address] [place], [address] White blood cell (WBC) count Ordered By: Jovany Brush on 09-01-2024 WBC (Bld) [#/Vol] 12.1 10*3/uL High 4.4-11.0 [facility] Anion gap in Serum or Plasma Ordered By: Maikel Liang on 08-30-2024 Anion gap [Moles/Vol] 11 mmol/L 5- [facility] BUN/creatinine ratioOrdered By: Maikel Liang on 08-30-2024 Urea nitrogen/Creatinine [Mass ratio] 17.2 mg/mg - [facility] Basic Metabolic Profile (BMP )on 08-30-2024 BUN/CRE 17.2 RATIO Normal - [facility] Comment on above: Performed By: #### L 500.2500 ####[facility] [address] [place], [address] Calcium [Mass/Vol] 9.3 mg/dL Normal 7.6-11.0 [facility] Comment on above: Performed By: #### L 500.2500 ####[facility] [address] [place], [address] Chloride [Moles/Vol] 102 mmol/L Normal 98-108 [facility] Comment on above: Performed By: #### L 500.2500 ####[facility] [address] [place], [address] CO2 [Moles/Vol] 24.9 mmol/L Normal 21.0-32.0 [facility] Comment on above: Performed By: #### L 500.2500 ####[facility] [address] [place], [address] Creatinine [Mass/Vol] 0.76 mg/dL Normal 0.70-1.20 [facility] Comment on above: Performed By: #### L 500.2500 ####[facility] [address] [place], [address] GAP 11 Normal 5-15 [facility] Comment on above: Performed By: #### L 500.2500 ####[facility] [address] [place], [address] GFR/1.73 sq M.predicted among non-blacks MDRD (S/P/Bld) [Vol rate/Area] 94 mL/min/{1.73_m2} Normal >60 [facility] Comment on above: Result Comment: mL/m in/1.73m2 CKD-EPI Creatinine Equation (2020) Performed By: #### L 500.2500 ####[facility] [address] [place], [address] Glucose [Mass/Vol] 144 mg/dL High 70-99 [facility] Comment on above: Performed By: #### L 500.2500 ####[facility] [address] [place], [address] Potassium [Moles/Vol] 4.5 mmol/L Normal 3.3-5.1 [facility] Comment on above: Performed By: #### L 500.2500 ####[facility] [address] [place], [address] Sodium [Moles/Vol] 138 mmol/L Normal 133-145 [facility] Comment on above: Performed By: #### L 500.2500 ####[facility] [address] [place], [address] Urea nitrogen [Mass/Vol] 13 mg/dL Normal 4-19 [facility] Comment on above: Performed By: #### L 500.2500 ####[facility] [address] [place], [address] Carbon dioxide, total [Moles /volume] in Central venous bloodOrdered By: Maikel Liang on 08-30-2024 CO2 [Moles/Vol] 24.9 mmol/L 21.0-32.0 [facility] Chloride assayOrdered By: Mary Kate Liang on 08-30-2024 Chloride [Moles/Vol] 102 mmol/L 98-108 [facility] GFR/1.73 sq M.predicted qiana g non-blacks MDRD (S/P/Bld) [Vol rate/Area]Ordered By: Maikel Liang on 08-30-2024 Estimated GFR (MDRD) Non-Af Amer 94 >60 [facility] Comment on above: mL/min/1.73m2 CKD-EP I Creatinine Equation (2020) Glomerular filtration rate ( GFR) estimation/1.73 sq m using serum, plasma, or whole bOrdered By: Maikel Liang on 08-30-2024 GFR/1.73 sq M.predicted among non-blacks MDRD (S/P/Bld) [Vol rate/Area] 94 mL/min/{1.73_m2} >60 [facility] Comment on above: mL/min/1.73m2 CKD-EP I Creatinine Equation (2020) Potassium (Unsp spec) [Mass/ Vol]Ordered By: Maikel Liang on 08-30-2024 Potassium [Moles/Vol] 4.5 mmol/L 3.3-5.1 [facility] Potassium measurement (mass/ volume)Ordered By: Maikel Liang on 08-30-2024 Potassium (Unsp spec) [Mass/Vol] 4.5 mmol/L 3.3-5.1 [facility] Serum creatinine measurement (mass/volume)Ordered By: Maikel Liang on 08-30-2024 Creatinine [Mass/Vol] 0.76 mg/dL 0.70-1.20 [facility] Serum glucose measurement (m ass/volume)Ordered By: Maikel Liang on 08-30-2024 Glucose [Mass/Vol] 144 mg/dL High 70-99 [facility] Serum or plasma calcium werner urement (mass/volume)Ordered By: Maikel Liang on 08-30-2024 Calcium [Mass/Vol] 9.3 mg/dL 7.6-11.0 [facility] Serum or plasma urea nitroge n measurement (mass/volume)Ordered By: Maikel Liang on 08-30-2024 Urea nitrogen [Mass/Vol] 13 mg/dL 4-19 [facility] Sodium levelOrdered By: Isabela Liang on 08-30-2024 Sodium [Moles/Vol] 138 mmol/L 133-145 [facility] 12 Lead EKG performed by [facility] on 08-20-2024 12 Lead EKG performed by [address] [place] [place] [address] 12 Lead EKG performed by [facility] 08/20/24 1011 MR#: [id number] Acct: [id number] Name: ANGI JACKSON Rep #: [id number] : 1950 74 From: Maikel WADE Attending Dr: MAURO Ramos Status: DEP AM B Ordering Dr: Maikel Liang Date: 08/20/24 Location: [facility] [place] Sex: M C Admitted: [facility]12 Lead EKG performed by [facility] ECG Report Interpretation --------Atrial fibrillation with PVCsElectronically signed on 08/24/2024 at 07:46 by Fco [employer] Software Version [id number] 08/24/24 0751 Date Maikel WADE CC: PRAKASH Harper Date Dictated: 08/20/24 1011 Date Transcribed: 08/20/24 1011 Lay Out Maker: BALDOMERO Signed Normal [facility] Anion gap in Serum or Plasma Ordered By: Maikel Liang on 08-20-2024 Anion gap [Moles/Vol] 14 mmol/L 5-15 [facility] BUN/creatinine ratioOrdered By: Maikel Liang on 08-20-2024 Urea nitrogen/Creatinine [Mass ratio] 22.1 mg/mg High 03-14 [facility] Basic Metabolic Profile (BMP )on 08-20-2024 BUN/CRE 22.1 RATIO High 03-14 [facility] Comment on above: Performed By: #### L 500.2500, L503.7505 #### [facility] [address] [place], [address] Calcium [Mass/Vol] 9.0 mg/dL Normal 7.6-11.0 [facility] Comment on above: Performed By: #### L 500.2500, L503.7505 #### [facility] [address] [place], [address] Chloride [Moles/Vol] 103 mmol/L Normal 98-108 [facility] Comment on above: Performed By: #### L 500.2500, L503.7505 #### [facility] [address] [place], [address] CO2 [Moles/Vol] 21.6 mmol/L Normal 21.0-32.0 [facility] Comment on above: Performed By: #### L 500.2500, L503.7505 #### [facility] [address] [place], [address] Creatinine [Mass/Vol] 0.73 mg/dL Normal 0.70-1.20 [facility] Comment on above: Performed By: #### L 500.2500, L503.7505 #### [facility] [address] [place], [address] GAP 14 Normal 5-15 [facility] Comment on above: Performed By: #### L 500.2500, L503.7505 #### [facility] [address] [place], [address] GFR/1.73 sq M.predicted among non-blacks MDRD (S/P/Bld) [Vol rate/Area] 95 mL/min/{1.73_m2} Normal >60 [facility] Comment on above: Result Comment: mL/m in/1.73m2 CKD-EPI Creatinine Equation (2020) Performed By: #### L 500.2500, L503.7505 #### [facility] [address] [place], [address] Glucose [Mass/Vol] 117 mg/dL High 70-99 [facility] Comment on above: Performed By: #### L 500.2500, L503.7505 #### [facility] [address] [place], [address] Potassium [Moles/Vol] 4.4 mmol/L Normal 3.3-5.1 [facility] Comment on above: Performed By: #### L 500.2500, L503.7505 #### [facility] [address] [place], [address] Sodium [Moles/Vol] 139 mmol/L Normal 133-145 [facility] Comment on above: Performed By: #### L 500.2500, L503.7505 #### [facility] [address] [place], [address] Urea nitrogen [Mass/Vol] 16 mg/dL Normal 4-19 [facility] Comment on above: Performed By: #### L 500.2500, L503.7505 #### [facility] [address] [place], [address] Carbon dioxide, total [Moles /volume] in Central venous bloodOrdered By: Maikel Liang on 08-20-2024 CO2 [Moles/Vol] 21.6 mmol/L 21.0-32.0 [facility] Cardiology Visit Reporton 03 -28-2025 Cardiology Visit Report [facility] [address] [place] [address] OFFICE VISIT Date of Service: 08/20/24 MR#: [id number] Acct: [id number] Name: ANGI JACKSON Rep #: [id number] : 1950 Provider: MARUO Ramos Age/Sex: 74/M Location[place] [facility] Status: Signed HPI HPI History of Present Illness Details: Angi Jackson is a 74-year-old male who presents to office today for hospital follow-up. Patient has a history of atrial fibrillation with controlled ventricular response rate and hypertension. Patient underwent stress test 06/12/2020 that showed evidence of inferoapical ischemia with preserved ejection fraction. Patient proceeded with heart catheterization on 06/20/2020 that showed mild to moderate nonobstructive coronary artery disease with preserved ejection fraction. HPI prior to hospitalization consisted of dyspnea and increase in palpitations starting around 08/12/24, patient unable to take a full breath at rest on 08/13, and patient began having increase in baseline chest pain, chest pain radiating to left armpit and worsening of dyspnea morning of 08/14. Patient was hospitalized at [facility] 08/14 - 08/16/2024 for CHF. Patient was treated with IV diuresis and transition to p.o. upon discharge. Patient had echocardiogram performed 08/16/2024 that revealed ejection fraction 50-55%, normal diastolic function, moderate mitral valve regurgitation, mild pulmonic and tricuspid valve regurgitation, mildly dilated atrium. Patient underwent nuclear stress test 08/12/2024 resulting in no evidence of significant inducible ischemia or prior myocardial infarction, normal ejection fraction 58% with normal wall motion. BNP 08/14/2024 2398 and repeat 08/15/2024 1651. Kidney function appeared stable while hospitalized. Patient reports utilizing supplemental oxygen while hospitalized; however, was not sent home on oxygen. Patient denies recognition of home O2 evaluation while hospitalized. Of note, patient did have hypokalemia while hospitalized; however, potassium was not listed on discharge medications. Since discharging home, patient reports ongoing dyspnea, worse with exertion. Patient reports fatigue and weakness (ongoing for months). Patient has had bilateral lower extremity edema prior to acute illness and ongoing during acute illness. Patient reports lower extremity edema has significantly improved from prior to hospitalization. Patient reports episode this morning in which he had gone up his stairs a couple times and he was in his kitchen short of breath, began experiencing dizziness and lightheadedness. Was attempting to get over to his kitchen table to sit in a chair; however, did not make it, started stumbling, was able to land on a kitchen stool. Patient denies blacking out at this time and after rest, symptoms improved. Patient did not obtain any measurements of his vitals during this episode. Daughter reports noticing patient experienced significant shortness of breath when walking to her car to come to this appointment and reports it took him 10 minutes to recover. Patient reports noticing recurrence of his mild chest pain in the lobby today. Patient reports his left-sided chest pain is chronic (has worsened with current acute illness/CHF) and can occur at rest or with activity but is not always consistent. Further ROS below. 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 Required: No Is patient in pain?: No Allergies codeine Allergy (Verified 08/20/24 10:06) HEART RATE IRREGULAR rivaroxaban (From Xarelto) Adverse Reaction (Verified 08/20/24 10:06) Bleeding Medications ???Medication ???Instructions ???Recorded ???Confirmed ???Type magnesium oxide 400 mg PO QHS Check with primary 1 07/09/17 08/20/24 History doctor multivitamin,tx-ir on-minerals 1 tab PO DAILY Check with primary 05/08/18 08/20/24 History (Complete Multivitamin tablet) doctor pravastatin 20 mg tablet 20 mg PO QHS Check with primary 08/20/24 History doctor finasteride 5 mg tablet 5 mg PO DAILY Check with primary 1 08/20/24 History doctor warfarin 2 mg tablet 2 mg PO .COMPLEX 07/03/21 08/20/24 History amlodipine 10 mg tablet 10 mg PO DAILY 09/06/21 08/20/24 H istory fluticasone fur. 100 mcg-umeclid 1 inh inhalation DAILY 09/06/21 History 62.5 mcg-vilant 25 mcg inhalat.powder baclofen 10 mg tablet 10 mg PO BID 04/25/22 08/20/24 His tory duloxetine 60 mg capsule,delayed 60 mg PO DAILY 04/25/22 08/20/24 H istory release (more content not included)... Normal [facility] Chest PA and Lateralon 08-20 Chest PA and L[address] [facility] [address] [place], [place] [address] Chest PA and Lateral MR#: [id number] Acct: [id number] Name: ANGI JACKSON Rep #: [id number] : 1950 M 74 From: Matteo Saba MD PCP: PRAKASH Lanier Status: REG CLI Study: Chest PA and Lateral Date of Exam: 08/20/24 Exam# [id number] Ordering Dr: Maikel Liang EXAM: XR Chest, 2 Views CLINICAL INDICATION: SHORTNESS OF BREATH TECHNIQUE: Frontal and lateral views of the chest. COMPARISON: No relevant prior studies available. FINDINGS: LUNGS AND PLEURAL SPACES: See below. HEART: Cardiomegaly with mild congestion. MEDIASTINUM: Unremarkable. Normal mediastinal contour. BONES/JOINTS: Unremarkable. No acute fracture. RAD/Chest PA and Lateral IMPRESSION: Cardiomegaly with mild congestion. Reading Location: [facility]- CC: MENTAL HEALTH NURSE PRACTITIONERFabiano Harper; MAURO Ramos Lay Out Maker: Signed Normal [facility] Chloride assayOrdered By: Mary Kate Liang on 08-20-2024 Chloride [Moles/Vol] 103 mmol/L 98-108 [facility] GFR/1.73 sq M.predicted qiana g non-blacks MDRD (S/P/Bld) [Vol rate/Area]Ordered By: Maikel Liang on 08-20-2024 Estimated GFR (MDRD) Non-Af Amer 95 >60 [facility] Comment on above: mL/min/1.73m2 CKD-EP I Creatinine Equation (2020) Glomerular filtration rate ( GFR) estimation/1.73 sq m using serum, plasma, or whole bOrdered By: Maikel Liang on 08-20-2024 GFR/1.73 sq M.predicted among non-blacks MDRD (S/P/Bld) [Vol rate/Area] 95 mL/min/{1.73_m2} >60 [facility] Comment on above: mL/min/1.73m2 CKD-EP I Creatinine Equation (2020) L503.7505on 08-20-2024 Natriuretic peptide B (Bld) [Mass/Vol] 1075 pg/mL Normal <=1800 [facility] Comment on above: Result Comment: Hear t Failure Unlikely: < 300 pg/mL Heart Failure Likely < 50 Years: > 450 pg/mL 50-75 Years: > 900 pg/mL >75 Years: > 1800 pg/mL Performed By: #### L 500.2500, L503.7505 ####[facility] [address] [place], [address] Laboratory - Chemistry and C hemistry - challengeOrdered By: Maikel Liang on 08-20-2024 Natriuretic peptide B (Bld) [Mass/Vol] 1075 pg/mL <1800 [facility] Comment on above: Heart Failure Unlike ly: < 300 pg/mLHeart Failure Likely< 50 Years: > 450 pg/mL50-75 Years: > 900 pg/mL>75 Years: > 1800 pg/mL Potassium (Unsp spec) [Mass/ Vol]Ordered By: Maikel Liang on 08-20-2024 Potassium [Moles/Vol] 4.4 mmol/L 3.3-5.1 [facility] Potassium measurement (mass/ volume)Ordered By: Maikel Liang on 08-20-2024 Potassium (Unsp spec) [Mass/Vol] 4.4 mmol/L 3.3-5.1 [facility] Serum creatinine measurement (mass/volume)Ordered By: Maikel Liang on 08-20-2024 Creatinine [Mass/Vol] 0.73 mg/dL 0.70-1.20 [facility] Serum glucose measurement (m ass/volume)Ordered By: Maikel Liang on 08-20-2024 Glucose [Mass/Vol] 117 mg/dL High 70-99 [facility] Serum or plasma calcium werner urement (mass/volume)Ordered By: Maikel Liang on 08-20-2024 Calcium [Mass/Vol] 9.0 mg/dL 7.6-11.0 [facility] Serum or plasma urea nitroge n measurement (mass/volume)Ordered By: Maikel Liang on 08-20-2024 Urea nitrogen [Mass/Vol] 16 mg/dL 4-19 [facility] Sodium levelOrdered By: Isabela Liang on 08-20-2024 Sodium [Moles/Vol] 139 mmol/L 133-145 [facility] .Auto Diffon 08-16-2024 Basophil, Absolute 0.1 10 3/mcL Normal 0.0-0.2 [facility] Comment on above: Performed By: #### A PTT, MG, GFR, PBNP, CBC, TROPHS, PRO, ADIFF, BMP, ANEU, MDW #### [address] [address] Basophils/100 WBC (Bld) 1.0 % Normal 0.0-2.5 [facility] Comment on above: Performed By: #### A PTT, MG, GFR, PBNP, CBC, TROPHS, PRO, ADIFF, BMP, ANEU, MDW #### [address] [address] Eosinophil, Absolute 0.2 10 3/mcL Normal 0.0-0.7 [facility] Comment on above: Performed By: #### A PTT, MG, GFR, PBNP, CBC, TROPHS, PRO, ADIFF, BMP, ANEU, MDW #### [address] [address] Eosinophils/100 WBC (Bld) 1.7 % Normal 0.0-7.0 [facility] Comment on above: Performed By: #### A PTT, MG, GFR, PBNP, CBC, TROPHS, PRO, ADIFF, BMP, ANEU, MDW #### [address] [address] Lymphocyte, Absolute 1.5 10 3/mcL Normal 0.9-4.3 [facility] Comment on above: Performed By: #### A PTT, MG, GFR, PBNP, CBC, TROPHS, PRO, ADIFF, BMP, ANEU, MDW #### [address] [address] Lymphocytes/100 WBC (Bld) 13.5 % Low 20.0-40.0 [facility] Comment on above: Performed By: #### A PTT, MG, GFR, PBNP, CBC, TROPHS, PRO, ADIFF, BMP, ANEU, MDW #### [address] [address] Monocyte, Absolute 0.8 10 3/mcL Normal 0.1-1.4 [facility] Comment on above: Performed By: #### A PTT, MG, GFR, PBNP, CBC, TROPHS, PRO, ADIFF, BMP, ANEU, MDW #### [address] [address] Monocytes/100 WBC (Bld) 7.0 % Normal 2.0-13.0 [facility] Comment on above: Performed By: #### A PTT, MG, GFR, PBNP, CBC, TROPHS, PRO, ADIFF, BMP, ANEU, MDW #### [address] [address] Neutrophils/100 WBC (Bld) 76.8 % High 50.0-75.0 [facility] Comment on above: Performed By: #### A PTT, MG, GFR, PBNP, CBC, TROPHS, PRO, ADIFF, BMP, ANEU, MDW #### [address] [address] .GFRon 08-16-2024 Estimated Glomerular Filtration Rate 98 ml/min/1.73sqm Normal [facility] Comment on above: Result Comment: Stages of Chronic Kidney Disease (CKD) Stage Description eGFR(ml/min/1.73 sq.m.) CKD 1 Normal kidney function or >=90 normal kindney function with possible kidney damage (ex. Proteinuria) CKD 2 Kidney damage with mild loss 60-89 of kidney function CKD 3a Mild to moderate loss of kidney 45-59 function CKD 3b Moderate to severe loss of 30-44 of kindey function CKD 4 Severe loss of kidney function 15-29 CKD 5 Kidney failure <15 Note: (go live 2024) the eGFR calculation was updated to the 2020 CKD-EPI creatinine equation without a race factor to calculate the eGFR results. Performed By: #### A PTT, MG, GFR, PBNP, CBC, TROPHS, PRO, ADIFF, BMP, ANEU, MDW #### [address] [address] .NEUABSon 08-16-2024 Neutrophil, Absolute 8.5 10 3/mcL High 2.3-8.1 [facility] Comment on above: Performed By: #### A PTT, MG, GFR, PBNP, CBC, TROPHS, PRO, ADIFF, BMP, ANEU, MDW #### [address] [address] BMPon 08-16-2024 BUN/Creatinine Ratio 17 ratio Normal 7-27 [facility] Comment on above: Performed By: #### A PTT, MG, GFR, PBNP, CBC, TROPHS, PRO, ADIFF, BMP, ANEU, MDW #### [address] [address] Calcium [Mass/Vol] 8.7 mg/dL Normal 8.4-10.2 [facility] Comment on above: Performed By: #### A PTT, MG, GFR, PBNP, CBC, TROPHS, PRO, ADIFF, BMP, ANEU, MDW #### [address] [address] Chloride [Moles/Vol] 104 mmol/L Normal 98-107 [facility] Comment on above: Performed By: #### A PTT, MG, GFR, PBNP, CBC, TROPHS, PRO, ADIFF, BMP, ANEU, MDW #### [address] [address] CO2 [Moles/Vol] 29 mmol/L Normal 23-31 [facility] Comment on above: Performed By: #### A PTT, MG, GFR, PBNP, CBC, TROPHS, PRO, ADIFF, BMP, ANEU, RISA #### [address] [address] Creatinine [Mass/Vol] 0.66 mg/dL Low 0.70-1.30 [facility] Comment on above: Result Comment: Test ing performed on Siemens Dimension EXL analyzer using a modified kinetic Magnolia technique. Performed By: #### A PTT, MG, GFR, PBNP, CBC, TROPHS, PRO, ADIFF, BMP, ANEU, RISA #### [address] [address] Electrolyte Balance 6.0 mEq/L Normal 4.0-15.0 [facility] Comment on above: Performed By: #### A PTT, MG, GFR, PBNP, CBC, TROPHS, PRO, ADIFF, BMP, ANEU, RISA #### [address] [address] Glucose [Mass/Vol] 124 mg/dL High 83-110 [facility] Comment on above: Performed By: #### A PTT, MG, GFR, PBNP, CBC, TROPHS, PRO, ADIFF, BMP, ANEU, RISA #### [address] [address] Potassium [Moles/Vol] 3.4 mmol/L Low 3.5-5.1 [facility] Comment on above: Performed By: #### A PTT, MG, GFR, PBNP, CBC, TROPHS, PRO, ADIFF, BMP, ANEU, W #### [address] [address] Sodium [Moles/Vol] 139 mmol/L Normal 136-145 [facility] Comment on above: Performed By: #### A PTT, MG, GFR, PBNP, CBC, TROPHS, PRO, ADIFF, BMP, ANEU, W #### [address] [address] Urea nitrogen [Mass/Vol] 11 mg/dL Normal 7-18 [facility] Comment on above: Performed By: #### A PTT, MG, GFR, PBNP, CBC, TROPHS, PRO, ADIFF, BMP, ANEU, MDW #### [address] [address] CBCon 08-16-2024 Erythrocyte distribution width (RBC) [Ratio] 18.9 % High 11.5-15.5 [facility] Comment on above: Performed By: #### A PTT, MG, GFR, PBNP, CBC, TROPHS, PRO, ADIFF, BMP, ANEUMDW #### [address] [address] Hematocrit (Bld) [Volume fraction] 34.9 % Low 40.0-52.0 [facility] Comment on above: Performed By: #### A PTT, MG, GFR, PBNP, CBC, TROPHS, PRO, ADIFF, BMP, ANEU, RISA #### [address] [address] Hgb 11.1 G/dL Low 13.0-17.5 [facility] Comment on above: Performed By: #### A PTT, MG, GFR, PBNP, CBC, TROPHS, PRO, ADIFF, BMP, ANEU, W #### [address] [address] MCH (RBC) [Entitic mass] 23.3 pg Low 27.0-33.0 [facility] Comment on above: Performed By: #### A PTT, MG, GFR, PBNP, CBC, TROPHS, PRO, ADIFF, BMP, ANEU, W #### [address] [address] MCHC 31.7 G/dL Low 32.0-36.0 [facility] Comment on above: Performed By: #### A PTT, MG, GFR, PBNP, CBC, TROPHS, PRO, ADIFF, BMP, ANEU, MDW #### [address] [address] MCV (RBC) [Entitic vol] 73.5 fL Low 81.0-100.0 [facility] Comment on above: Performed By: #### A PTT, MG, GFR, PBNP, CBC, TROPHS, PRO, ADIFF, BMP, ANEU, MDW #### [address] [address] Platelet 329 10 3/mcL Normal 150-450 [facility] Comment on above: Performed By: #### A PTT, MG, GFR, PBNP, CBC, TROPHS, PRO, ADIFF, BMP, ANEU, W #### [address] [address] Platelet mean volume (Bld) [Entitic vol] 7.7 fL Normal 6.4-10.5 [facility] Comment on above: Performed By: #### A PTT, MG, GFR, PBNP, CBC, TROPHS, PRO, ADIFF, BMP, ANEU, RISA #### [address] [address] RBC 4.75 10 6/mcL Normal 4.50-6.00 [facility] Comment on above: Performed By: #### A PTT, MG, GFR, PBNP, CBC, TROPHS, PRO, ADIFF, BMP, ANEU, RISA #### [address] [address] WBC 11.1 10 3/mcL High 4.5-10.8 [facility] Comment on above: Performed By: #### A PTT, MG, GFR, PBNP, CBC, TROPHS, PRO, ADIFF, BMP, ANEURISA #### [address] [address] MGon 08-16-2024 Magnesium [Mass/Vol] 2.1 mg/dL Normal 1.8-2.4 [facility] Comment on above: Performed By: #### A PTT, MG, GFR, PBNP, CBC, TROPHS, PRO, ADIFF, BMP, ANEUMDW #### [address] [address] NM MYOCARDIAL SPECT STRESS/R ESTon 08-16-2024 NM MYOCARDIAL SPECT STRESS/REST ORIGINAL NM MYOCARDIAL SPECT STRESS/REST CLINICAL STATEMENT: cp TECHNIQUE: Lexiscan dose:0.4 mg Radiopharmaceutica l (stress): Tc-99m Sestamibi Dose:31.9 mCi Radiopharmaceutica l (rest): Tc-99m Sestamibi Dose:10.6 mCi SPECT acquisition and processing Reconstruction and reorientation of SPECT images into short axis, vertical and horizontal long axis planes Quantitative LVEF assessment COMPARISON: 015 REPORT:LEFT ventricle appears normal in size. On gated images the ejection fraction is normal at 58% with normal wall motion. On stress images there is a decrease in the uptake of activity in the inferior wall extending to the apex. There is no improvement in the uptake of activity in this area on rest images. There otherwise is relatively homogenous uptake of activity in other areas the myocardium. IMPRESSION: 1. No evidence of significant inducible ischemia or prior myocardial infarction. 2. Normal ejection fraction of 58% with normal wall motion. 3. Diaphragmatic attenuation artifact. 4. Compared to the prior study there has been no significant interval change. Interpreted By: Kevin Marquez MD Preliminary Report By: Kevin Marquez MD Electronically Signed By: Kevin Marquez MD Dictated Date: 08/16/2024 3:15:51 PM Prelim Date: 08/16/2024 3:15:51 PM Sign Date: 08/16/2024 3:22:17 PM Ordering Provider:Juliet Gasca [facility] PROon 08-16-2024 PT Coag (PPP) [Time] 24.4 s High 9.0-14.4 [facility] Comment on above: Order Comment: order ed secondary to warfarin order Performed By: #### A PTT, MG, GFR, PBNP, CBC, TROPHS, VAUGHN CRABTREE BMP, ANEU, MDW #### [address] [address] PT International Ratio 2.1 Normal [facility] Comment on above: Order Comment: order ed secondary to warfarin order Result Comment: [employer] (CHEST, 1992, 102:312S-25S) recommended therapeutic range for oral anticoagulant therapy is: LOW RISK: Prophylaxis of venous thrombosis INR: 2.0-3.0 Treatment of pulmonary embolism 2.0-3.0 Prevention of systemic embolism 2.0-3.0 HIGH RISK: Mechanical prosthetic valves 2.5-3.5 Performed By: #### A PTT, MG, GFR, PBNP, CBC, TROPHS, PRO, ADIFF, BMP, REYNA, RISA #### [address] [place], [place] [address] [facility] High Sensitivity Troponin I 13 ng/L Normal 0-76 [facility] Comment on above: Result Comment: High Sensitive Troponin I Reference Ranges: Female: 0-51 ng/L Male: 0-76 ng/L Testing performed on [employer] using a homogeneous sandwich chemiluminescent immunoassay based on collegefeed technology. Performed By: #### A PTT, MG, GFR, PBNP, CBC, TROPHS, PRO, ADIFF, BMP, RISA ORELLANA #### [address] [address] .Auto Diffon 08-15-2024 Basophil, Absolute 0.1 10 3/mcL Normal 0.0-0.2 [facility] Comment on above: Performed By: #### C BC, ANEU, TROPHS, GFR, MG, BMP, PRO, PBNP, ADIFF ####[address] [place], [place] [address] Basophils/100 WBC (Bld) 1.0 % Normal 0.0-2.5 [facility] Comment on above: Performed By: #### C BC, ANEU, TROPHS, GFR, MG, BMP, PRO, PBNP, ADIFF ####[address] [place], [place] [address] Eosinophil, Absolute 0.1 10 3/mcL Normal 0.0-0.7 [facility] Comment on above: Performed By: #### C BC, ANEU, TROPHS, GFR, MG, BMP, PRO, PBNP, ADIFF ####[address] [address] Eosinophils/100 WBC (Bld) 1.1 % Normal 0.0-7.0 [facility] Comment on above: Performed By: #### C BC, ANEU, TROPHS, GFR, MG, BMP, PRO, PBNP, ADIFF ####[address] [address] Lymphocyte, Absolute 1.4 10 3/mcL Normal 0.9-4.3 [facility] Comment on above: Performed By: #### C BC, ANEU, TROPHS, GFR, MG, BMP, PRO, PBNP, ADIFF ####[address] [address] Lymphocytes/100 WBC (Bld) 12.3 % Low 20.0-40.0 [facility] Comment on above: Performed By: #### C BC, ANEU, TROPHS, GFR, MG, BMP, PRO, PBNP, ADIFF ####[address] [place], [place] [address] Monocyte, Absolute 0.8 10 3/mcL Normal 0.1-1.4 [facility] Comment on above: Performed By: #### C BC, ANEU, TROPHS, GFR, MG, BMP, PRO, PBNP, ADIFF ####[address] [place], [place] [address] Monocytes/100 WBC (Bld) 6.6 % Normal 2.0-13.0 [facility] Comment on above: Performed By: #### C BC, ANEU, TROPHS, GFR, MG, BMP, PRO, PBNP, ADIFF ####[address] [address] Neutrophils/100 WBC (Bld) 79.0 % High 50.0-75.0 [facility] Comment on above: Performed By: #### C BC, ANEU, TROPHS, GFR, MG, BMP, PRO, PBNP, ADIFF ####[address] [place], [place] [address] .GFRon 08-15-2024 Estimated Glomerular Filtration Rate 98 ml/min/1.73sqm Normal [facility] Comment on above: Result Comment: Stages of Chronic Kidney Disease (CKD) Stage Description eGFR(ml/min/1.73 sq.m.) CKD 1 Normal kidney function or >=90 normal kindney function with possible kidney damage (ex. Proteinuria) CKD 2 Kidney damage with mild loss 60-89 of kidney function CKD 3a Mild to moderate loss of kidney 45-59 function CKD 3b Moderate to severe loss of 30-44 of kindey function CKD 4 Severe loss of kidney function 15-29 CKD 5 Kidney failure <15 Note: (go live 2024) the eGFR calculation was updated to the 2020 CKD-EPI creatinine equation without a race factor to calculate the eGFR results. Performed By: #### C BC, ANEU, TROPHS, GFR, MG, BMP, PRO, PBNP, ADIFF ####[place] [address] [place], [place] [address] .NEUABSon 08-15-2024 Neutrophil, Absolute 9.3 10 3/mcL High 2.3-8.1 [facility] Comment on above: Performed By: #### C BC, ANEU, TROPHS, GFR, MG, BMP, PRO, PBNP, ADIFF ####[address] [place], [place] [address] BMPon 08-15-2024 BUN/Creatinine Ratio 20 ratio Normal 7-27 [facility] Comment on above: Performed By: #### C BC, ANEU, TROPHS, GFR, MG, BMP, PRO, PBNP, ADIFF ####[place] [address] [place], [place] [address] Calcium [Mass/Vol] 8.6 mg/dL Normal 8.4-10.2 [facility] Comment on above: Performed By: #### C BC, ANEU, TROPHS, GFR, MG, BMP, PRO, PBNP, ADIFF ####[place] [address] [place], [place] [address] Chloride [Moles/Vol] 103 mmol/L Normal 98-107 [facility] Comment on above: Performed By: #### C BC, ANEU, TROPHS, GFR, MG, BMP, PRO, PBNP, ADIFF ####[place] [address] [place], [place] [address] CO2 [Moles/Vol] 28 mmol/L Normal 23-31 [facility] Comment on above: Performed By: #### C BC, ANEU, TROPHS, GFR, MG, BMP, PRO, PBNP, ADIFF ####[address] [place], [place] [address] Creatinine [Mass/Vol] 0.65 mg/dL Low 0.70-1.30 [facility] Comment on above: Result Comment: Test ing performed on [employer] Dimension EXL analyzer using a modified kinetic Magnolia technique. Performed By: #### C BC, ANEU, TROPHS, GFR, MG, BMP, PRO, PBNP, ADIFF ####[address] [place], [place] [address] Electrolyte Balance 8.0 mEq/L Normal 4.0-15.0 [facility] Comment on above: Performed By: #### C BC, ANEU, TROPHS, GFR, MG, BMP, PRO, PBNP, ADIFF ####[address] [place], [place] [address] Glucose [Mass/Vol] 127 mg/dL High 83-110 [facility] Comment on above: Performed By: #### C BC, ANEU, TROPHS, GFR, MG, BMP, PRO, PBNP, ADIFF ####[address] [place], [place] [address] Potassium [Moles/Vol] 3.1 mmol/L Low 3.5-5.1 [facility] Comment on above: Performed By: #### C BC, ANEU, TROPHS, GFR, MG, BMP, PRO, PBNP, ADIFF ####[address] [place], [place] [address] Sodium [Moles/Vol] 139 mmol/L Normal 136-145 [facility] Comment on above: Performed By: #### C BC, ANEU, TROPHS, GFR, MG, BMP, PRO, PBNP, ADIFF ####[address] [place], [place] [address] Urea nitrogen [Mass/Vol] 13 mg/dL Normal 7-18 [facility] Comment on above: Performed By: #### C BC, ANEU, TROPHS, GFR, MG, BMP, PRO, PBNP, ADIFF ####[address] [place], [place] [address] CBCon 08-15-2024 Erythrocyte distribution width (RBC) [Ratio] 18.6 % High 11.5-15.5 [facility] Comment on above: Performed By: #### C BC, ANEU, TROPHS, GFR, MG, BMP, PRO, PBNP, ADIFF ####[id number] [address] Hematocrit (Bld) [Volume fraction] 34.9 % Low 40.0-52.0 [facility] Comment on above: Performed By: #### C BC, ANEU, TROPHS, GFR, MG, BMP, PRO, PBNP, ADIFF ####[address] [place] [address] Hgb 11.1 G/dL Low 13.0-17.5 [facility] Comment on above: Performed By: #### C BC, ANEU, TROPHS, GFR, MG, BMP, PRO, PBNP, ADIFF ####[address] [place], [place] [address] MCH (RBC) [Entitic mass] 23.3 pg Low 27.0-33.0 [facility] Comment on above: Performed By: #### C BC, ANEU, TROPHS, GFR, MG, BMP, PRO, PBNP, ADIFF ####[address] [place] [id number] MCHC 31.7 G/dL Low 32.0-36.0 [facility] Comment on above: Performed By: #### C BC, ANEU, TROPHS, GFR, MG, BMP, PRO, PBNP, ADIFF ####[address] [place] [id number] MCV (RBC) [Entitic vol] 73.4 fL Low 81.0-100.0 [facility] Comment on above: Performed By: #### C BC, ANEU, TROPHS, GFR, MG, BMP, PRO, PBNP, ADIFF ####[facility] [place], [place] [address] Platelet 330 10 3/mcL Normal 150-450 [facility] Comment on above: Performed By: #### C BC, ANEU, TROPHS, GFR, MG, BMP, PRO, PBNP, ADIFF ####[facility] [place], [place] [address] Platelet mean volume (Bld) [Entitic vol] 7.4 fL Normal 6.4-10.5 [facility] Comment on above: Performed By: #### C BC, ANEU, TROPHS, GFR, MG, BMP, PRO, PBNP, ADIFF ####[address] [place], [place] [address] RBC 4.76 10 6/mcL Normal 4.50-6.00 [facility] Comment on above: Performed By: #### C BC, ANEU, TROPHS, GFR, MG, BMP, PRO, PBNP, ADIFF ####[address] [place], [place] [address] WBC 11.8 10 3/mcL High 4.5-10.8 [facility] Comment on above: Performed By: #### C BC, ANEU, TROPHS, GFR, MG, BMP, PRO, PBNP, ADIFF ####[address] [place], [place] [address] MGon 08-15-2024 Magnesium [Mass/Vol] 2.1 mg/dL Normal 1.8-2.4 [facility] Comment on above: Performed By: #### C BC, ANEU, TROPHS, GFR, MG, BMP, PRO, PBNP, ADIFF ####[facility] [place], [place] [address] PBNPon 08-15-2024 Natriuretic peptide B (Bld) [Mass/Vol] 1651 pg/mL High 0-450 [facility] Comment on above: Result Comment: NT-p roBNP results of less than 300 pg/mL effectively rules out acute congestive heart failure with 99% negative predictive value. Performed By: #### C BC, ANEU, TROPHS, GFR, MG, BMP, PRO, PBNP, ADIFF ####[address] [place], [place] [address] PROon 08-15-2024 PT Coag (PPP) [Time] 41.7 s High 9.0-14.4 [facility] Comment on above: Order Comment: order ed secondary to warfarin order Performed By: #### C BC, ANEU, TROPHS, GFR, MG, BMP, PRO, PBNP, ADIFF ####[address] [place], [place] [address] PT International Ratio 3.6 Normal [facility] Comment on above: Order Comment: order ed secondary to warfarin order Result Comment: [employer] (CHEST, 1992, 102:312S-25S) recommended therapeutic range for oral anticoagulant therapy is: LOW RISK: Prophylaxis of venous thrombosis INR: 2.0-3.0 Treatment of pulmonary embolism 2.0-3.0 Prevention of systemic embolism 2.0-3.0 HIGH RISK: Mechanical prosthetic valves 2.5-3.5 Performed By: #### C BC, ANEU, TROPHS, GFR, MG, BMP, PRO, PBNP, ADIFF ####[facility] [place], [place] [address] TROPHSon 08-15-2024 High Sensitivity Troponin I 10 ng/L Normal 0-76 [facility] Comment on above: Result Comment: High Sensitive Troponin I Reference Ranges: Female: 0-51 ng/L Male: 0-76 ng/L Testing performed on [employer] using a homogeneous sandwich chemiluminescent immunoassay based on collegefeed technology. Performed By: #### C BC, ANEU, TROPHS, GFR, MG, BMP, PRO, PBNP, ADIFF ####[place] [address] [place], [place] [address] .Auto Diffon 08-14-2024 Basophil, Absolute 0.1 10 3/mcL Normal 0.0-0.2 [facility] Comment on above: Performed By: #### A PTT, MG, GFR, PBNP, CBC, TROPHS, PRO, ADIFF, BMP, ANEU, MDW ####[address] [address] Basophils/100 WBC (Bld) 0.7 % Normal 0.0-2.5 [facility] Comment on above: Performed By: #### A PTT, MG, GFR, PBNP, CBC, TROPHS, PRO, ADIFF, BMP, ANEU, MDW ####[address] [address] Eosinophil, Absolute 0.0 10 3/mcL Normal 0.0-0.7 [facility] Comment on above: Performed By: #### A PTT, MG, GFR, PBNP, CBC, TROPHS, PRO, ADIFF, BMP, ANEU, MDW ####[address] [address] Eosinophils/100 WBC (Bld) 0.3 % Normal 0.0-7.0 [facility] Comment on above: Performed By: #### A PTT, MG, GFR, PBNP, CBC, TROPHS, PRO, ADIFF, BMP, ANEU, MDW ####[address] [address] Lymphocyte, Absolute 0.9 10 3/mcL Normal 0.9-4.3 [facility] Comment on above: Performed By: #### A PTT, MG, GFR, PBNP, CBC, TROPHS, PRO, ADIFF, BMP, ANEU, MDW ####[address] [address] Lymphocytes/100 WBC (Bld) 7.2 % Low 20.0-40.0 [facility] Comment on above: Performed By: #### A PTT, MG, GFR, PBNP, CBC, TROPHS, PRO, ADIFF, BMP, ANEU, MDW ####[address] [address] Monocyte, Absolute 0.7 10 3/mcL Normal 0.1-1.4 [facility] Comment on above: Performed By: #### A PTT, MG, GFR, PBNP, CBC, TROPHS, PRO, ADIFF, BMP, ANEU, MDW ####[address] [address] Monocytes/100 WBC (Bld) 6.0 % Normal 2.0-13.0 [facility] Comment on above: Performed By: #### A PTT, MG, GFR, PBNP, CBC, TROPHS, PRO, ADIFF, BMP, ANEU, MDW ####[facility] [place], [place] [address] Neutrophils/100 WBC (Bld) 85.8 % High 50.0-75.0 [facility] Comment on above: Performed By: #### A PTT, MG, GFR, PBNP, CBC, TROPHS, PRO, ADIFF, BMP, ANEU, MDW ####[address] [place], [place] [address] .GFRon 08-14-2024 Estimated Glomerular Filtration Rate 90 ml/min/1.73sqm Normal [facility] Comment on above: Result Comment: Stages of Chronic Kidney Disease (CKD) Stage Description eGFR(ml/min/1.73 sq.m.) CKD 1 Normal kidney function or >=90 normal kindney function with possible kidney damage (ex. Proteinuria) CKD 2 Kidney damage with mild loss 60-89 of kidney function CKD 3a Mild to moderate loss of kidney 45-59 function CKD 3b Moderate to severe loss of 30-44 of kindey function CKD 4 Severe loss of kidney function 15-29 CKD 5 Kidney failure <15 Note: (go live 2024) the eGFR calculation was updated to the 2020 CKD-EPI creatinine equation without a race factor to calculate the eGFR results. Performed By: #### A PTT, MG, GFR, PBNP, CBC, TROPHS, PRO, ADIFF, BMP, ANEU, MDW #### [address] [place], [place] [address] .MDWon 08-14-2024 Monocyte Distribution Width 19.91 Normal 0.00-20.00 [facility] Comment on above: Result Comment: For ED adult patients suspected of sepsis, MDW<=20.0 does not rule out sepsis or risk of sepsis Performed By: #### A PTT, MG, GFR, PBNP, CBC, TROPHS, PRO, ADIFF, BMP, ANEU, MDW ####[address] [address] .NEUABSon 08-14-2024 Neutrophil, Absolute 10.7 10 3/mcL High 2.3-8.1 [facility] Comment on above: Performed By: #### A PTT, MG, GFR, PBNP, CBC, TROPHS, PRO, ADIFF, BMP, RISA ORELLANA ####[address] [address] APTTon 08-14-2024 aPTT Coag (Bld) [Time] 37.1 s High 25.0-35.0 [facility] Comment on above: Result Comment: For Heparin anticoagulation therapy, the recommended therapeutic range is: 45.4-75.9 seconds. Patients on heparin therapy may have an extreme result. Performed By: #### A PTT, MG, GFR, PBNP, CBC, TROPHS, PRO, ADIFF, REYNA RODRIGES MDW #### [address] [address] [facility] BUN/Creatinine Ratio 13 ratio Normal 7-27 [facility] Comment on above: Performed By: #### A PTT, MG, GFR, PBNP, CBC, TROPHS, PRO, ADIFF, ZAHIRA, RISA ORELLANA #### [address] [address] Calcium [Mass/Vol] 8.8 mg/dL Normal 8.4-10.2 [facility] Comment on above: Performed By: #### A PTT, MG, GFR, PBNP, CBC, TROPHS, PRO, ADIFF, BMP, RISA ORELLANA #### [address] [address] Chloride [Moles/Vol] 103 mmol/L Normal 98-107 [facility] Comment on above: Performed By: #### A PTT, MG, GFR, PBNP, CBC, TROPHS, PRO, ADIFF, BMP, RISA ORELLANA #### [address] [address] CO2 [Moles/Vol] 25 mmol/L Normal 23-31 [facility] Comment on above: Performed By: #### A PTT, MG, GFR, PBNP, CBC, TROPHS, PRO, ADIFF, BMP, ANEU, RIAS #### [address] [address] Creatinine [Mass/Vol] 0.87 mg/dL Normal 0.70-1.30 [facility] [place] Comment on above: Result Comment: Test ing performed on Siemens Dimension EXL analyzer using a modified kinetic [place] technique. Performed By: #### A PTT, MG, GFR, PBNP, CBC, TROPHS, PRO, ADIFF, BMP, ANEU, RISA #### [address] [address] Electrolyte Balance 11.0 mEq/L Normal 4.0-15.0 [facility] Comment on above: Performed By: #### A PTT, MG, GFR, PBNP, CBC, TROPHS, PRO, ADIFF, BMP, ANEU, RISA #### [address] [address] Glucose [Mass/Vol] 147 mg/dL High 83-110 [facility] Comment on above: Performed By: #### A PTT, MG, GFR, PBNP, CBC, TROPHS, PRO, ADIFF, BMP, ANEU, RISA #### [address] [address] Potassium [Moles/Vol] 3.7 mmol/L Normal 3.5-5.1 [facility] Comment on above: Performed By: #### A PTT, MG, GFR, PBNP, CBC, TROPHS, PRO, ADIFF, BMP, ANEU, RISA #### [address] [address] Sodium [Moles/Vol] 139 mmol/L Normal 136-145 [facility] Comment on above: Performed By: #### A PTT, MG, GFR, PBNP, CBC, TROPHS, PRO, ADIFF, BMP, ANEU, RISA #### [address] [address] Urea nitrogen [Mass/Vol] 11 mg/dL Normal 7-18 [facility] Comment on above: Performed By: #### A PTT, MG, GFR, PBNP, CBC, TROPHS, PRO, ADIFF, BMP, ANEURISA #### [address] [address] CBCon 08-14-2024 Erythrocyte distribution width (RBC) [Ratio] 18.1 % High 11.5-15.5 [facility] Comment on above: Performed By: #### A PTT, MG, GFR, PBNP, CBC, TROPHS, PRO, ADIFF, BMP, ANEU, RISA ####[place] [address] Hematocrit (Bld) [Volume fraction] 35.3 % Low 40.0-52.0 [facility] Comment on above: Performed By: #### A PTT, MG, GFR, PBNP, CBC, TROPHS, PRO, ADIFF, BMP, ANEU, RISA ####[place] [address] Hgb 11.2 G/dL Low 13.0-17.5 [facility] Comment on above: Performed By: #### A PTT, MG, GFR, PBNP, CBC, TROPHS, PRO, ADIFF, BMP, ANEU, RISA ####[place] [address] [place] [id number] MCH (RBC) [Entitic mass] 23.3 pg Low 27.0-33.0 [facility] Comment on above: Performed By: #### A PTT, MG, GFR, PBNP, CBC, TROPHS, PRO, ADIFF, BMP, ANEU, RISA ####[place] [address] MCHC 31.6 G/dL Low 32.0-36.0 [facility] Comment on above: Performed By: #### A PTT, MG, GFR, PBNP, CBC, TROPHS, PRO, ADIFF, BMP, ANEU, RISA ####[place] [id number] MCV (RBC) [Entitic vol] 73.7 fL Low 81.0-100.0 [facility] Comment on above: Performed By: #### A PTT, MG, GFR, PBNP, CBC, TROPHS, PRO, ADIFF, BMP, ANEU, W ####[id number] [place], [place] [address] Platelet 332 10 3/mcL Normal 150-450 [facility] Comment on above: Performed By: #### A PTT, MG, GFR, PBNP, CBC, TROPHS, PRO, ADIFF, BMP, ANEU, RISA ####[id number] [place], [place] [address] Platelet mean volume (Bld) [Entitic vol] 7.2 fL Normal 6.4-10.5 [facility] Comment on above: Performed By: #### A PTT, MG, GFR, PBNP, CBC, TROPHS, PRO, ADIFF, BMP, ANEU, RISA ####[place] [address] [place], [place] [address] RBC 4.78 10 6/mcL Normal 4.50-6.00 [facility] Comment on above: Performed By: #### A PTT, MG, GFR, PBNP, CBC, TROPHS, PRO, ADIFF, BMP, ANEU, RISA ####[id number] [place], [place] [address] WBC 12.5 10 3/mcL High 4.5-10.8 [facility] Comment on above: Performed By: #### A PTT, MG, GFR, PBNP, CBC, TROPHS, PRO, ADIFF, BMP, ANEU, IRSA ####[id number] [place], [place] [address] MGon 08-14-2024 Magnesium [Mass/Vol] 1.7 mg/dL Low 1.8-2.4 [facility] Comment on above: Performed By: #### A PTT, MG, GFR, PBNP, CBC, TROPHS, PRO, ADIFF, BMP, ANEU, RISA #### [place] [address] [place], [place] [address] PBNPon 08-14-2024 Natriuretic peptide B (Bld) [Mass/Vol] 2398 pg/mL High 0-450 [facility] Comment on above: Result Comment: NT-p roBNP results of less than 300 pg/mL effectively rules out acute congestive heart failure with 99% negative predictive value. Performed By: #### A PTT, MG, GFR, PBNP, CBC, TROPHS, PRO, ADIFF, BMP, RISA ORELLANA #### [address] [address] PROon 08-14-2024 PT Coag (PPP) [Time] 46.0 s High 9.0-14.4 [facility] Comment on above: Order Comment: order ed secondary to warfarin order Performed By: #### A PTT, MG, GFR, PBNP, CBC, TROPHS, PRO, ADIFF, BMP, RISA ORELLANA #### [address] [address] PT International Ratio 3.9 Normal [facility] Comment on above: Order Comment: order ed secondary to warfarin order Result Comment: The [employer] (CHEST, 1992, 102:312S-25S) recommended therapeutic range for oral anticoagulant therapy is: LOW RISK: Prophylaxis of venous thrombosis INR: 2.0-3.0 Treatment of pulmonary embolism 2.0-3.0 Prevention of systemic embolism 2.0-3.0 HIGH RISK: Mechanical prosthetic valves 2.5-3.5 Performed By: #### A PTT, MG, GFR, PBNP, CBC, TROPHS, PRO, ADIFF, BMP, RISA ORELLANA #### [address] [address] PT Coag (PPP) [Time] 34.1 s High 9.0-14.4 [facility] Comment on above: Performed By: #### A PTT, MG, GFR, PBNP, CBC, TROPHS, PRO, ADIFF, BMP, RISA ORELLANA #### [address] [address] PT International Ratio 2.9 Normal [facility] Comment on above: Result Comment: The [employer] (CHEST, 1991, 102:312S-25S) recommended therapeutic range for oral anticoagulant therapy is: LOW RISK: Prophylaxis of venous thrombosis INR: 2.0-3.0 Treatment of pulmonary embolism 2.0-3.0 Prevention of systemic embolism 2.0-3.0 HIGH RISK: Mechanical prosthetic valves 2.5-3.5 Performed By: #### A PTT, MG, GFR, PBNP, CBC, TROPHS, PRO, ADIFF, BMP, ANEU, RISA #### [address] [address] [facility] High Sensitivity Troponin I 11 ng/L Normal 0-76 [facility] Comment on above: Result Comment: High Sensitive Troponin I Reference Ranges: Female: 0-51 ng/L Male: 0-76 ng/L Testing performed on Dimension EXL using a homogeneous sandwich chemiluminescent immunoassay based on collegefeed technology. Performed By: #### A PTT, MG, GFR, PBNP, CBC, TROPHS, PRO, ADIFF, BMP, ANEU, RISA #### [address] [address] High Sensitivity Troponin I 10 ng/L Normal 0-76 [facility] Comment on above: Result Comment: High Sensitive Troponin I Reference Ranges: Female: 0-51 ng/L Male: 0-76 ng/L Testing performed on Dimension EX using a homogeneous sandwich chemiluminescent immunoassay based on LOCI technology. Performed By: #### A PTT, MG, GFR, PBNP, CBC, TROPHS, PRO, ADIFF, BMP, REYNA, RISA #### [address] [address] High Sensitivity Troponin I 11 ng/L Normal 0-76 [facility] Comment on above: Result Comment: High Sensitive Troponin I Reference Ranges: Female: 0-51 ng/L Male: 0-76 ng/L Testing performed on Dimension EXL using a homogeneous sandwich chemiluminescent immunoassay based on collegefeed technology. Performed By: #### A PTT, MG, GFR, PBNP, CBC, TROPHS, PRO, ADIFF, BMP, ANEU, RISA #### [address] [address] XR CHEST 1 VIEWon 08-14-2024 XR CHEST 1 VIEW ORIGINAL EXAMINATION: Exam Title:ONE XRAY VIEW OF THE CHEST Completed Time: 08/14/2024 12:08 pm Procedure Description:CHEST ONE VIEW AP/PA COMPARISON: February 03, 2024 CT chest HISTORY: ORDERING SYSTEM PROVIDED HISTORY: Reason for Exam: chest pain FINDINGS: There are few diffuse scattered reticular pulmonary markings. Mild to moderate hypoinflation. Moderate cardiomegaly. Possible small bilateral pleural effusions. No evidence for pneumothorax. External chest leads. No gross acute osseous process. IMPRESSION: [] 1. Hypoinflation with scattered reticular pulmonary markings in cardiomegaly. Possible small bilateral effusions. Acute myocardial process/heart failure considered. Interpreted by: Fortino Mitchell DO Preliminary Report By: Fortino Mitchell DO Electronically signed By Fortino Mitchell DO Dictated Date: 08/14/2024 12:16:32 PM Prelim Date: 08/14/2024 12:17:29 PM Sign Date: 08/14/2024 12:17:29 PM Ordering Provider: BASSEM BRONSON [facility] Low Dose CT Lung Screeningon 03-10-[address] Screening [facility] [address] [place] [id number] Lung Screening MR#: [id number] Acct: [id number] Name: ANGI JACKSON Rep #: [id number] : 1950 M 74 From: Ammon akins MD PCP: PRAKASH Lanier Status: REG CLI Study: Low Dose CT Lung Screening Date of Exam: 03/10 Exam# [id number] Ordering Dr: Breanne Mejia MD [id number] STUDY: LOW DOSE CT LUNG CANCER SCREENING REASON FOR EXAM: Male, 74 years old. HX of nicotine dep RADIATION DOSAGE (If Supplied By Facility): CTDIvol = ( 3.18 ) mGy, DLP = ( 130.76 ) mGycm TECHNIQUE: No contrast was administered. Low dose technique was utilized (average mAS-38 and kVp 120). 1.25 mm axial source images with a slice interval of 1.25-mm were reconstructed in lung windows. 2.5 mm axial source images with a slice interval of 2.5-mm were reconstructed in lung windows. 5.0 mm axial source images with a slice interval of 5.0-mm were reconstructed in soft tissue windows. Nodule measured using lung windows on PACS and/or independent workstation with automated measurement of minimum and maximum diameter. Nodule measurement reported as average diameter rounded to the nearest whole number. Growth is defined as an increase ins size of greater than 1.5 mm. COMPARISON: CT lung cancer screening study dated January 31, 2022 FINDINGS: Total lung nodules (excluding granulomas): None Emphysema: Mild with hyperinflation of the lungs. Endobronchial lesion: None Aorta: No aneurysmal dilatation Coronary arteries: Moderate to significant atherosclerotic calcifications of the coronary arteries are present. Mediastinal nodes: None There are interstitial fibrotic changes of the lungs. There is no demonstrated pleural abnormality. No consolidation is present. No visualized nodules or masses on the current study. Normal mediastinum. Normal hilar regions. Normal unenhanced pulmonary arteries. There is atherosclerotic calcification of the aortic arch with tortuosity and elongation of the aortic arch and descending thoracic aorta. There are multi-level degenerative changes of the thoracic spine. CT/Low Dose CT Lung Screening IMPRESSION: 1. 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 Lung-RADS category 2 - Continue annual screening with LDCT in 12 months. IMPORTANT NOTES FOR USE: ACR Lung-RADS Version 1.0 Assessment Categories Release Date: 2021 Classification system Category 0 (Incomplete)- prior CT studies were performed but are not available, lungs incompletely imaged, findings suggest inflammation or infection Category 1 (negative, <1% chance of malignancy) (no lung nodules/lung nodule(s) with specific findings favoring benign nodule(s)) Category 2 (benign appearance or behavior, <1% chance of malignancy) juxtapleural nodule <10mm mean diameter at baseline OR new and smooth, solid, oval, lentiform, or triangular Category 3 nodules that are stable or decreased at 6 months Category 3 (probably benign, 1-2% chance of malignancy) solid nodule(s)(between 6 and 8 mm at baseline; new nodule between 4 mm and 6 mm) Category 4A lesion, stable or decreased in size at 3-month follow-up (excluding airway nodules) Category 4A (suspicious, 5-15% chance of malignancy) (version 1.1 change previously suspicious) solid nodule(s) (?8 mm to <15 mm at baseline or growing nodule(s) <8 mm) Category 4B (very suspicious, >15% chance of malignancy) stable or growing airway nodule, segmental or more proximal (solid nodule(s) ? 15 mm at baseline or new or growing, and ?8 mm) Category 4X (very suspicious, >15% chance of malignancy) category 3 or 4 nodules with additional features or imaging findings that increase the suspicion of malignancy Modified categories [X]S (e.g. 3S) if there is a clinically significant or potentially significant non-lung cancer finding Electronically Signed: Ammon Gonzales MD at 22:55 EDT Reading Location ID and State: [address] [place] [address] , Service support , CC: PRAKASH Harper; Dr. Breanne Mejia MD Lay Out Maker: Signed [facility] CT ABDOMEN/PELVIS W/CONTRAST on 02-04-2024 CT ABDOMEN/PELVIS W/CONTRAST ORIGINAL EXAMINATION: CT OF THE ABDOMEN AND PELVIS WITH CONTRAST 02/03/2024 1:29 pm TECHNIQUE: CT of the abdomen and pelvis was performed with the administration of intravenous contrast. Multiplanar reformatted images are provided for review. Automated exposure control, iterative reconstruction, and/or weight based adjustment of the mA/kV was utilized to reduce the radiation dose to as low as reasonably achievable. COMPARISON: 08/12/2022. HISTORY: ORDERING SYSTEM PROVIDED HISTORY: Reason for Exam: Enlarged upper abdominal lymph node FINDINGS: A dedicated CT chest is dictated separately. Gall bladder: Surgically absent. Left hepatic lobe is small and heterogeneous in appearance, this is likely congenital or related to remote insult. No evidence of intrahepatic biliary duct dilatation. 8 mm fat density lesion in the tail of pancreas (series 4, image 33) likely fat infiltration or lipoma, unchanged. Spleen and right adrenal glands are unremarkable. Mild left adrenal hyperplasia is unchanged. Kidneys are symmetric in size and enhancement without hydronephrosis. 1.8 cm exophytic lesion is noted in the upper pole of left kidney (series 4, image 41) previously 1.6 cm, likely hemorrhagic/protei naceous cyst. Bilateral simple renal cyst also noted. Punctate bilateral renal calculi. Streak artifact from bilateral hip prosthesis obscures some details within abdomen or pelvis. Within these constraints, urinary bladder is grossly unremarkable. Scattered colonic diverticulosis without diverticulitis. Small bowel and colon are normal in caliber. No bowel obstruction. Appendix is normal. No definite intraperitoneal free air or focal fluid collection. 1.7 cm martha hepatis lymph node. No retroperitoneal lymphadenopathy. Nonaneurysmal atherosclerotic aorto-iliac arteries. No acute fracture or destructive osseous lesion. Mild degenerative changes in the spine. Small fat containing bilateral inguinal hernias. IMPRESSION: New 1.7 cm martha hepatis lymph node is of uncertain etiology, likely considerations include reactive or hyperplastic or neoplastic process. Bilateral nonobstructive nephrolithiasis. Scattered colonic diverticulosis without diverticulitis. I have personally reviewed the images of this examination and agree with the resident's finding and interpretation. RECOMMENDATIONS: Left Bosniak I benign renal cyst measuring 1.8 cm. No follow-up imaging is recommended. JACR 2018 Jun; 264-273, Management of the Incidental Renal Mass on CT, Radio[employer] 2020; [id number], Bosniak Classification of Cystic Renal Masses, Version 2019. Interpreted by: Bernardo Garcia MD Preliminary Report By: Emmanuelle Kapadia Electronically signed By Bernardo Garcia MD Dictated Date: 02/03/2024 2:54:22 PM Prelim Date: 02/04/2024 7:58:37 AM Sign Date: 02/04/2024 7:58:37 AM Ordering Provider: MARCOS Gasca [facility] CT THORAX W/ CONTRASTmaxi 01-24 CT THORAX W/ CONTRAST ORIGINAL EXAMINATION: CT OF THE CHEST WITH CONTRAST 02/03/2024 1:28 pm TECHNIQUE: CT of the chest was performed with the administration of intravenous contrast. Multiplanar reformatted images are provided for review. Automated exposure control, iterative reconstruction, and/or weight based adjustment of the mA/kV was utilized to reduce the radiation dose to as low as reasonably achievable. COMPARISON: October 03, 2023 HISTORY: ORDERING SYSTEM PROVIDED HISTORY: Reason for Exam: Mildly enlarged mediastinal precarinal lymph node which may be FINDINGS: Minor degenerative changes are noted in the spine. No other osseous abnormality identified. The inferior-most lower lobes are not imaged on this exam. There is mild interstitial pulmonary fibrosis present. There is some motion artifact identified, and allowing for this, a discrete pulmonary nodule is not definitely identified. The previously described nodules are not well studied on this exam. No focal infiltrate is evident and there is no pleural fluid seen. No mediastinal adenopathy is identified the right-sided precarinal lymph node appears to be within normal limits although it is partially obscured by streak artifact at the SVC. Coronary calcification is evident. No additional contributory abnormality is evident. IMPRESSION: 1. No significant abnormality is evident allowing for motion artifact. No confirmation of mediastinal adenopathy. 2. Previously seen pulmonary nodules are obscured by motion artifact today. Interpreted by: Bernardo Garcia MD Preliminary Report By: Bernardo Garcia MD Electronically signed By Bernardo Garcia MD Dictated Date: 02/04/2024 10:24:25 AM Prelim Date: 02/04/2024 10:28:19 AM Sign Date: 02/04/2024 10:28:19 AM Ordering Provider: MARCOS Gasca [facility] .Auto Diffon 02-03-2024 Basophil, Absolute 0.1 10 3/mcL Normal 0.0-0.2 [facility] Comment on above: Performed By: #### A DIFF, GFR, ANEU, LIP, CBC, CMP, CASIMIRO ####[id number] [place], [place] [address] Basophils/100 WBC (Bld) 1.3 % Normal 0.0-2.5 [facility] Comment on above: Performed By: #### A DIFF, GFR, ANEU, LIP, CBC, CMP, CASIMIRO ####[id number] [place], [place] [address] Eosinophil, Absolute 0.2 10 3/mcL Normal 0.0-0.4 [facility] Comment on above: Performed By: #### A DIFF, GFR, ANEU, LIP, CBC, CMP, CASIMIRO ####[place] [address] [place], [place] [address] Eosinophils/100 WBC (Bld) 1.6 % Normal 0.0-7.0 [facility] Comment on above: Performed By: #### A DIFF, GFR, ANEU, LIP, CBC, CMP, CASIMIRO ####[id number] [place], [place] [address] Lymphocyte, Absolute 1.8 10 3/mcL Normal 0.8-3.9 [facility] Comment on above: Performed By: #### A DIFF, GFR, ANEU, LIP, CBC, CMP, CASIMIRO ####[place] [address] [place], [place] [address] Lymphocytes/100 WBC (Bld) 18.0 % Normal 10.0-50.0 [facility] Comment on above: Performed By: #### A DIFF, GFR, ANEU, LIP, CBC, CMP, CASIMIRO ####[place] [address] [place], [place] [address] Monocyte, Absolute 0.9 10 3/mcL Normal 0.2-1.0 [facility] Comment on above: Performed By: #### A DIFF, GFR, ANEU, LIP, CBC, CMP, CASIMIOR ####[place] [address] [place], [place] [address] Monocytes/100 WBC (Bld) 8.6 % Normal 1.7-13.0 [facility] Comment on above: Performed By: #### A DIFF, GFR, ANEU, LIP, CBC, CMP, CASIMIRO ####[address] [address] Neutrophils/100 WBC (Bld) 70.5 % Normal 37.0-80.0 [facility] Comment on above: Performed By: #### A DIFF, GFR, ANEU, LIP, CBC, CMP, CASIMIRO ####[place] [address] [place], [place] [address] .GFRon 02-03-2024 GFR 85 ml/min/1.73sqm Normal [facility] Comment on above: Result Comment: GFR Population mean for , Non- Americans Ages 20-29 = 116 mL/min/1.73 sq.m. Ages 30-39 = 107 mL/min/1.73 sq.m. Ages 40-49 = 99 mL/min/1.73 sq.m. Ages 50-59 = 93 mL/min/1.73 sq.m. Ages 60-69 = 85 mL/min/1.73 sq.m. Ages 70+ = 75 mL/min/1.73 sq.m. Chronic Kidney Disease: Less than 60 mL/min/1.73 square meters End Stage Renal Disease: Less than 15 mL/min/1.73 square meters Performed By: #### A DIFF, GFR, ANEU, LIP, CBC, CMP, CASIMIRO ####[place] [address] [place], [place] [address] GFR Non- 70 ml/min/1.73sqm Normal [facility] Comment on above: Result Comment: GFR Population mean for , Non- Americans Ages 20-29 = 116 mL/min/1.73 sq.m. Ages 30-39 = 107 mL/min/1.73 sq.m. Ages 40-49 = 99 mL/min/1.73 sq.m. Ages 50-59 = 93 mL/min/1.73 sq.m. Ages 60-69 = 85 mL/min/1.73 sq.m. Ages 70+ = 75 mL/min/1.73 sq.m. Chronic Kidney Disease: Less than 60 mL/min/1.73 square meters End Stage Renal Disease: Less than 15 mL/min/1.73 square meters Performed By: #### A DIFF, GFR, ANEU, LIP, CBC, CMP, CASIMIRO ####[place] [address] [place], [place] [address] .NEUABSon 02-03-2024 Neutrophil, Absolute 7.2 10 3/mcL High 2.9-6.2 [facility] Comment on above: Performed By: #### A DIFF, GFR, ANEU, LIP, CBC, CMP, CASIMIRO ####[id number] [place], [place] [address] AMYon 02-03-2024 Amylase [Catalytic activity/Vol] 42 U/L Normal 25-115 [facility] Comment on above: Performed By: #### A DIFF, GFR, ANEU, LIP, CBC, CMP, CASIMIRO ####[place] [id number] CBCon 02-03-2024 Erythrocyte distribution width (RBC) [Ratio] 16.8 % High 11.5-14.5 [facility] Comment on above: Performed By: #### A DIFF, GFR, ANEU, LIP, CBC, CMP, CASIMIRO ####[place] [address] Hematocrit (Bld) [Volume fraction] 43.5 % Normal 42.0-52.0 [facility] Comment on above: Performed By: #### A DIFF, GFR, ANEU, LIP, CBC, CMP, CASIMIRO ####[place] [address] Hgb 14.1 G/dL Normal 14.0-18.0 [facility] Comment on above: Performed By: #### A DIFF, GFR, ANEU, LIP, CBC, CMP, CASIMIRO ####[place] [address] MCH (RBC) [Entitic mass] 26.8 pg Low 27.0-31.2 [facility] Comment on above: Performed By: #### A DIFF, GFR, ANEU, LIP, CBC, CMP, CASIMIRO ####[place] [address] MCHC 32.3 G/dL Normal 31.8-35.4 [facility] Comment on above: Performed By: #### A DIFF, GFR, ANEU, LIP, CBC, CMP, CASIMIRO ####[place] [address] MCV (RBC) [Entitic vol] 83.0 fL Normal 80.0-94.0 [facility] Comment on above: Performed By: #### A DIFF, GFR, ANEU, LIP, CBC, CMP, CASIMIRO ####[place] [address] Platelet 337 10 3/mcL Normal 130-400 [facility] Comment on above: Performed By: #### A DIFF, GFR, ANEU, LIP, CBC, CMP, CASIMIRO ####[place] [address] [place], [place] [address] Platelet mean volume (Bld) [Entitic vol] 7.1 fL Low 7.4-10.4 [facility] Comment on above: Performed By: #### A DIFF, GFR, ANEU, LIP, CBC, CMP, CASIMIRO ####[place] [address] [place] [id number] RBC 5.25 10 6/mcL Normal 4.04-6.13 [facility] Comment on above: Performed By: #### A DIFF, GFR, ANEU, LIP, CBC, CMP, CASIMIRO ####[place] [address] [place] [id number] WBC 10.2 10 3/mcL Normal 4.6-10.8 [facility] Comment on above: Performed By: #### A DIFF, GFR, ANEU, LIP, CBC, CMP, CASIMIRO ####[address] [address] CMPon 02-03-2024 Albumin Level 3.4 G/dL Normal 3.4-4.8 [facility] Comment on above: Performed By: #### A DIFF, GFR, ANEU, LIP, CBC, CMP, CASIMIRO ####[address] [address] Albumin/Globulin [Mass ratio] 0.9 {ratio} Low 1.1-2.5 [facility] Comment on above: Performed By: #### A DIFF, GFR, ANEU, LIP, CBC, CMP, CASIMIRO ####[address] [address] ALP [Catalytic activity/Vol] 121 U/L Normal 40-135 [facility] Comment on above: Performed By: #### A DIFF, GFR, ANEU, LIP, CBC, CMP, CASIMIRO ####[address] [address] ALT [Catalytic activity/Vol] 27 U/L Normal 16-63 [facility] Comment on above: Performed By: #### A DIFF, GFR, ANEU, LIP, CBC, CMP, CASIMIRO ####[id number] [place], [place] [address] AST [Catalytic activity/Vol] 24 U/L Normal 10-40 [facility] Comment on above: Performed By: #### A DIFF, GFR, ANEU, LIP, CBC, CMP, CASIMIRO ####[id number] [place], [place] [address] Bili Total 0.7 mg/dL Normal 0.2-1.0 [facility] Comment on above: Result Comment: Use of this assay is not recommended for patients undergoing treatment with eltrombopag due to the potential for falsely elevated results. Performed By: #### A DIFF, GFR, ANEU, LIP, CBC, CMP, CASIMIRO ####[place] [address] [place], [place] [address] BUN/Creatinine Ratio 10 ratio Normal 7-27 [facility] Comment on above: Performed By: #### A DIFF, GFR, ANEU, LIP, CBC, CMP, CASIMIRO ####[address] [address] Calcium [Mass/Vol] 9.3 mg/dL Normal 8.4-10.2 [facility] Comment on above: Performed By: #### A DIFF, GFR, ANEU, LIP, CBC, CMP, CASIMIRO ####[id number] [place], [place] [address] Chloride [Moles/Vol] 98 mmol/L Normal 98-107 [facility] Comment on above: Performed By: #### A DIFF, GFR, ANEU, LIP, CBC, CMP, CASIMIRO ####[place] [address] [place], [place] [address] CO2 [Moles/Vol] 32 mmol/L High 23-31 [facility] Comment on above: Performed By: #### A DIFF, GFR, ANEU, LIP, CBC, CMP, CASIMIRO ####[id number] [place], [place] [address] Creatinine [Mass/Vol] 1.04 mg/dL Normal 0.70-1.30 [facility] Comment on above: Result Comment: Test ing performed on Siemens Dimension EXL analyzer using a modified kinetic Magnolia technique. Performed By: #### A DIFF, GFR, ANEU, LIP, CBC, CMP, CASIMIRO ####[place] [address] [place], [place] [address] Electrolyte Balance 6.0 mEq/L Normal 4.0-15.0 [facility] Comment on above: Performed By: #### A DIFF, GFR, ANEU, LIP, CBC, CMP, CASIMIRO ####[address] [address] Globulin 3.6 G/dL Normal [facility] Comment on above: Performed By: #### A DIFF, GFR, ANEU, LIP, CBC, CMP, CASIMIRO ####[address] [place], [place] [address] Glucose [Mass/Vol] 109 mg/dL Normal 83-110 [facility] Comment on above: Performed By: #### A DIFF, GFR, ANEU, LIP, CBC, CMP, CASIMIRO ####[address] [address] Potassium [Moles/Vol] 4.0 mmol/L Normal 3.5-5.1 [facility] Comment on above: Performed By: #### A DIFF, GFR, ANEU, LIP, CBC, CMP, CASIMIRO ####[address] [address] Sodium [Moles/Vol] 136 mmol/L Normal 136-145 [facility] Comment on above: Performed By: #### A DIFF, GFR, ANEU, LIP, CBC, CMP, CASIMIRO ####[address] [address] Total Protein 7.0 G/dL Normal 6.4-8.2 [facility] Comment on above: Performed By: #### A DIFF, GFR, ANEU, LIP, CBC, CMP, CASIMIRO ####[address] [address] Urea nitrogen [Mass/Vol] 10 mg/dL Normal 7-18 [facility] Comment on above: Performed By: #### A DIFF, GFR, ANEU, LIP, CBC, CMP, CASIMIRO ####[id number] [place] [id number] LABORATORYOrdered By: SYSTEM SYSTEM on 02-03-2024 Albumin BCP dye [Mass/Vol] 3.4 G/dL Normal 3.4 - 4.8 G/dL AO ADM SS Albumin/Globulin [Mass ratio] 0.9 {ratio} Low 1.1 - 2.5 ratio AO ADM SS ALP [Catalytic activity/Vol] 121 U/L Normal 40 - 135 U/L AO ADM SS ALT With P-5'-P [Catalytic activity/Vol] 27 U/L Normal 16 - 63 U/L AO ADM SS Amylase [Catalytic activity/Vol] 42 U/L Normal 25 - 115 U/L AO ADM SS AST With P-5'-P [Catalytic activity/Vol] 24 U/L Normal 10 - 40 U/L AO ADM SS Basophils (Bld) [#/Vol] 0.1 103/mcL Normal 0.0 - 0.2 10^3/mcL AO Workflow SS Basophils/100 WBC (Bld) 1.3 % Normal 0.0 - 2.5 % AO Workflow SS Bilirubin [Mass/Vol] 0.7 mg/dL Normal 0.2 - 1 .0 mg/dL AO ADM SS Comment on above: Interpretive Data: U se of this assay is not recommended for patients undergoing treatment with eltrombopag due to the potential for falsely elevated results. Calcium [Mass/Vol] 9.3 mg/dL Normal 8.4 - 10. 2 mg/dL AO ADM SS Chloride [Moles/Vol] 98 mmol/L Normal 98 - 10 7 mmol/L AO ADM SS CO2 [Moles/Vol] 32 mmol/L High 23 - 31 mmol/L AO AD M SS Creatinine [Mass/Vol] 1.04 mg/dL Normal 0.70 - 1.30 mg/dL AO ADM SS Comment on above: Interpretive Data: T esting performed on [employer] Dimension EXL analyzer using a modified kinetic [place] technique. Electrolyte Balance 6.0 mEq/L Normal 4.0 - 15 .0 mEq/L AO ADM SS Eosinophil, Absolute 0.2 103/mcL Normal 0.0 - 0 .4 10^3/mcL AO Workflow SS Eosinophils/100 WBC (Bld) 1.6 % Normal 0.0 - 7.0 % AO Workflow SS Erythrocyte distribution width (RBC) [Ratio] 16.8 % High 11.5 - 14.5 % AO Workflow SS GFR/1.73 sq M.predicted among blacks MDRD (S/P/Bld) [Vol rate/Area] 85 ml/min/1.73sqm Invalid Interpretation Code AO Chemistry S Comment on above: Interpretive Data: GFR Population mean for , Non- Americans Ages 20-29 = 116 mL/min/1.73 sq.m. Ages 30-39 = 107 mL/min/1.73 sq.m. Ages 40-49 = 99 mL/min/1.73 sq.m. Ages 50-59 = 93 mL/min/1.73 sq.m. Ages 60-69 = 85 mL/min/1.73 sq.m. Ages 70+ = 75 mL/min/1.73 sq.m. Chronic Kidney Disease: Less than 60 mL/min/1.73 square meters End Stage Renal Disease: Less than 15 mL/min/1.73 square meters GFR/1.73 sq M.predicted among non-blacks MDRD (S/P/Bld) [Vol rate/Area] 70 ml/min/1.73sqm Invalid Interpretation Code AO Chemistry S Comment on above: Interpretive Data: GFR Population mean for , Non- Americans Ages 20-29 = 116 mL/min/1.73 sq.m. Ages 30-39 = 107 mL/min/1.73 sq.m. Ages 40-49 = 99 mL/min/1.73 sq.m. Ages 50-59 = 93 mL/min/1.73 sq.m. Ages 60-69 = 85 mL/min/1.73 sq.m. Ages 70+ = 75 mL/min/1.73 sq.m. Chronic Kidney Disease: Less than 60 mL/min/1.73 square meters End Stage Renal Disease: Less than 15 mL/min/1.73 square meters Globulin 3.6 G/dL Invalid Interpretation Code AO ADM SS Glucose [Mass/Vol] 109 mg/dL Normal 83 - 110 mg/dL AO ADM SS Hematocrit (Bld) [Volume fraction] 43.5 % Normal 42.0 - 52.0 % AO Workflow SS Hemoglobin (Bld) [Mass/Vol] 14.1 G/dL Normal 14.0 - 18.0 G/dL AO Workflow SS Lipase [Catalytic activity/Vol] 22 U/L Normal 16 - 77 U/L AO ADM SS Lymphocytes (Bld) [#/Vol] 1.8 103/mcL Normal 0.8 - 3.9 10^3/mcL AO Workflow SS Lymphocytes/100 WBC (Bld) 18.0 % Normal 10.0 - 50.0 % AO Workflow SS MCH (RBC) [Entitic mass] 26.8 pg Low 27.0 - 31.2 pg AO Workflow SS MCHC 32.3 G/dL Normal 31.8 - 35.4 G/dL AO Workflow SS MCV (RBC) [Entitic vol] 83.0 fL Normal 80.0 - 94.0 fL AO Workflow SS Monocytes (Bld) [#/Vol] 0.9 103/mcL Normal 0.2 - 1.0 10^3/mcL AO Workflow SS Monocytes/100 WBC (Bld) 8.6 % Normal 1.7 - 13.0 % AO Workflow SS Neutrophils (Bld) [#/Vol] 7.2 103/mcL High 2.9 - 6.2 10^3/mcL AO Workflow SS Neutrophils/100 WBC (Bld) 70.5 % Normal 37.0 - 80.0 % AO Workflow SS Platelet mean volume (Bld) [Entitic vol] 7.1 fL Low 7.4 - 10.4 fL AO Workflow SS Platelets (Bld) [#/Vol] 337 103/mcL Normal 130 - 400 10^3/mcL AO Workflow SS Potassium [Moles/Vol] 4.0 mmol/L Normal 3.5 - 5.1 mmol/L AO ADM SS Protein [Mass/Vol] 7.0 G/dL Normal 6.4 - 8.2 G/dL AO ADM SS RBC (Bld) [#/Vol] 5.25 106/mcL Normal 4.04 - 6.1 3 10^6/mcL AO Workflow SS Sodium [Moles/Vol] 136 mmol/L Normal 136 - 145 mmol/L AO ADM SS Urea nitrogen [Mass/Vol] 10 mg/dL Normal 7 - 18 mg/dL AO ADM SS Urea nitrogen/Creatinine [Mass ratio] 10 ratio Normal 7 - 27 ratio AO ADM SS WBC (Bld) [#/Vol] 10.2 103/mcL Normal 4.6 - 10.8 10^3/mcL AO Workflow SS LIPon 02-03-2024 Lipase Level 22 U/L Normal 16-77 [facility] Comment on above: Performed By: #### A DIFF, GFR, ANEU, LIP, CBC, CMP, CASIMIRO ####[address] [address] .Auto Diffon 01-20-2024 Basophil, Absolute 0.1 10 3/mcL Normal 0.0-0.2 [facility] ([place]) Comment on above: Performed By: #### A DIFF, CMP, ANEU, GFR, CBC #### [address] [address] Basophils/100 WBC (Bld) 1.0 % Normal 0.0-2.5 [facility] ([place]) Comment on above: Performed By: #### A DIFF, CMP, ANEU, GFR, CBC #### [address] [address] Eosinophil, Absolute 0.2 10 3/mcL Normal 0.0-0.4 [facility] ([place]) Comment on above: Performed By: #### A DIFF, CMP, ANEU, GFR, CBC #### [address] [address] Eosinophils/100 WBC (Bld) 1.4 % Normal 0.0-7.0 [facility] ([place]) Comment on above: Performed By: #### A DIFF, CMP, ANEU, GFR, CBC #### [address] [address] Lymphocyte, Absolute 1.6 10 3/mcL Normal 0.8-3.9 [facility] ([place]) Comment on above: Performed By: #### A DIFF, CMP, ANEU, GFR, CBC #### [address] [address] Lymphocytes/100 WBC (Bld) 14.0 % Normal 10.0-50.0 [facility] ([place]) Comment on above: Performed By: #### A DIFF, CMP, ANEU, GFR, CBC #### [address] [place] [address] Monocyte, Absolute 1.0 10 3/mcL Normal 0.2-1.0 [facility] ([place]) Comment on above: Performed By: #### A DIFF, CMP, ANEU, GFR, CBC #### [address] [address] Monocytes/100 WBC (Bld) 8.5 % Normal 1.7-13.0 [facility] ([place]) Comment on above: Performed By: #### A DIFF, CMP, ANEU, GFR, CBC #### [address] [address] Neutrophils/100 WBC (Bld) 75.1 % Normal 37.0-80.0 [facility] ([place]) Comment on above: Performed By: #### A DIFF, CMP, ANEU, GFR, CBC #### [address] [address] .GFRon 01-20-2024 GFR 81 ml/min/1.73sqm Normal [facility] ([place]) Comment on above: Result Comment: GFR Population mean for , Non- Americans Ages 20-29 = 116 mL/min/1.73 sq.m. Ages 30-39 = 107 mL/min/1.73 sq.m. Ages 40-49 = 99 mL/min/1.73 sq.m. Ages 50-59 = 93 mL/min/1.73 sq.m. Ages 60-69 = 85 mL/min/1.73 sq.m. Ages 70+ = 75 mL/min/1.73 sq.m. Chronic Kidney Disease: Less than 60 mL/min/1.73 square meters End Stage Renal Disease: Less than 15 mL/min/1.73 square meters Performed By: #### A DIFF, CMP, ANEU, GFR, CBC #### [address] [address] GFR Non- 67 ml/min/1.73sqm Normal [facility] ([place]) Comment on above: Result Comment: GFR Population mean for , Non- Americans Ages 20-29 = 116 mL/min/1.73 sq.m. Ages 30-39 = 107 mL/min/1.73 sq.m. Ages 40-49 = 99 mL/min/1.73 sq.m. Ages 50-59 = 93 mL/min/1.73 sq.m. Ages 60-69 = 85 mL/min/1.73 sq.m. Ages 70+ = 75 mL/min/1.73 sq.m. Chronic Kidney Disease: Less than 60 mL/min/1.73 square meters End Stage Renal Disease: Less than 15 mL/min/1.73 square meters Performed By: #### A DIFF, CMP, ANEU, GFR, CBC #### [place] [id number] .NEUABSon 01-20-2024 Neutrophil, Absolute 8.7 10 3/mcL High 2.9-6.2 [facility] ([place]) Comment on above: Performed By: #### A DIFF, CMP, ANEU, GFR, CBC #### [place] [address] CBCon 01-20-2024 Erythrocyte distribution width (RBC) [Ratio] 16.9 % High 11.5-14.5 [facility] ([place]) Comment on above: Performed By: #### A DIFF, CMP, ANEU, GFR, CBC #### [place] [address] Hematocrit (Bld) [Volume fraction] 43.4 % Normal 42.0-52.0 [facility] ([place]) Comment on above: Performed By: #### A DIFF, CMP, ANEU, GFR, CBC #### [place] [id number] Hgb 13.9 G/dL Low 14.0-18.0 [facility] ([place]) Comment on above: Performed By: #### A DIFF, CMP, ANEU, GFR, CBC #### [place] [id number] MCH (RBC) [Entitic mass] 26.9 pg Low 27.0-31.2 [facility] ([place]) Comment on above: Performed By: #### A DIFF, CMP, ANEU, GFR, CBC #### [address] [address] MCHC 31.9 G/dL Normal 31.8-35.4 [facility] ([place]) Comment on above: Performed By: #### A DIFF, CMP, ANEU, GFR, CBC #### [address] [address] MCV (RBC) [Entitic vol] 84.4 fL Normal 80.0-94.0 [facility] ([place]) Comment on above: Performed By: #### A DIFF, CMP, ANEU, GFR, CBC #### [address] [address] Platelet 376 10 3/mcL Normal 130-400 [facility] ([place]) Comment on above: Performed By: #### A DIFF, CMP, ANEU, GFR, CBC #### [address] [address] Platelet mean volume (Bld) [Entitic vol] 7.9 fL Normal 7.4-10.4 [facility] ([place]) Comment on above: Performed By: #### A DIFF, CMP, ANEU, GFR, CBC #### [address] [address] RBC 5.15 10 6/mcL Normal 4.04-6.13 [facility] ([place]) Comment on above: Performed By: #### A DIFF, CMP, ANEU, GFR, CBC #### [address] [address] WBC 11.6 10 3/mcL High 4.6-10.8 [facility] ([place]) Comment on above: Performed By: #### A DIFF, CMP, ANEU, GFR, CBC #### [address] [address] CMPon 01-20-2024 Albumin Level 3.4 G/dL Normal 3.4-4.8 [facility] ([place]) Comment on above: Performed By: #### A DIFF, CMP, ANEU, GFR, CBC #### [address] [address] Albumin/Globulin [Mass ratio] 0.9 {ratio} Low 1.1-2.5 [facility] ([place]) Comment on above: Performed By: #### A DIFF, CMP, ANEU, GFR, CBC #### [address] [address] ALP [Catalytic activity/Vol] 121 U/L Normal 40-135 [facility] ([place]) Comment on above: Performed By: #### A DIFF, CMP, ANEU, GFR, CBC #### [address] [address] ALT [Catalytic activity/Vol] 31 U/L Normal 16-63 [facility] ([place]) Comment on above: Performed By: #### A DIFF, CMP, ANEU, GFR, CBC #### [address] [address] AST [Catalytic activity/Vol] 28 U/L Normal 10-40 [facility] ([place]) Comment on above: Performed By: #### A DIFF, CMP, ANEU, GFR, CBC #### [address] [address] Bili Total 0.6 mg/dL Normal 0.2-1.0 [facility] ([place]) Comment on above: Result Comment: Use of this assay is not recommended for patients undergoing treatment with eltrombopag due to the potential for falsely elevated results. Performed By: #### A DIFF, CMP, ANEU, GFR, CBC #### [address] [address] BUN/Creatinine Ratio 8 ratio Normal 7-27 [facility] ([place]) Comment on above: Performed By: #### A DIFF, CMP, ANEU, GFR, CBC #### [address] [address] Calcium [Mass/Vol] 9.2 mg/dL Normal 8.4-10.2 [facility] ([place]) Comment on above: Performed By: #### A DIFF, CMP, ANEU, GFR, CBC #### [address] [address] Chloride [Moles/Vol] 104 mmol/L Normal 98-107 [facility] ([place]) Comment on above: Performed By: #### A DIFF, CMP, ANEU, GFR, CBC #### [address] [address] CO2 [Moles/Vol] 25 mmol/L Normal 23-31 [facility] ([place]) Comment on above: Performed By: #### A DIFF, CMP, ANEU, GFR, CBC #### [address] [address] Creatinine [Mass/Vol] 1.08 mg/dL Normal 0.70-1.30 [facility] ([place]) Comment on above: Performed By: #### A DIFF, CMP, ANEU, GFR, CBC #### [address] [address] Electrolyte Balance 10.0 mEq/L Normal 4.0-15.0 [facility] ([place]) Comment on above: Performed By: #### A DIFF, CMP, ANEU, GFR, CBC #### [address] [address] Globulin 3.9 G/dL Normal [facility] ([place]) Comment on above: Performed By: #### A DIFF, CMP, ANEU, GFR, CBC #### [address] [address] Glucose [Mass/Vol] 145 mg/dL High 83-110 [facility] ([place]) Comment on above: Performed By: #### A DIFF, CMP, ANEU, GFR, CBC #### [address] [address] Potassium [Moles/Vol] 3.7 mmol/L Normal 3.5-5.1 [facility] ([place]) Comment on above: Performed By: #### A DIFF, CMP, ANEU, GFR, CBC #### [address] [address] Sodium [Moles/Vol] 139 mmol/L Normal 136-145 [facility] ([place]) Comment on above: Performed By: #### A DIFF, CMP, ANEU, GFR, CBC #### [place] [address] [place], [place] [address] Total Protein 7.3 G/dL Normal 6.4-8.2 [facility] ([place]) Comment on above: Performed By: #### A DIFF, CMP, ANEU, GFR, CBC #### [place] [address] [place], [place] [address] Urea nitrogen [Mass/Vol] 9 mg/dL Normal 7-18 [facility] ([place]) Comment on above: Performed By: #### A DIFF, CMP, ANEU, GFR, CBC #### [place] [place], [place] [address] LABORATORYOrdered By: SYSTEM SYSTEM on 01-20-2024 Albumin BCP dye [Mass/Vol] 3.4 G/dL Normal 3.4 - 4.8 G/dL AO ADM SS Albumin/Globulin [Mass ratio] 0.9 {ratio} Low 1.1 - 2.5 ratio AO ADM SS ALP [Catalytic activity/Vol] 121 U/L Normal 40 - 135 U/L AO ADM SS ALT With P-5'-P [Catalytic activity/Vol] 31 U/L Normal 16 - 63 U/L AO ADM SS AST With P-5'-P [Catalytic activity/Vol] 28 U/L Normal 10 - 40 U/L AO ADM SS Basophil, Absolute 0.1 103/mcL Normal 0.0 - 0.2 10^3/mcL AO Workflow SS Basophils/100 WBC (Bld) 1.0 % Normal 0.0 - 2.5 % AO Workflow SS Bilirubin [Mass/Vol] 0.6 mg/dL Normal 0.2 - 1 .0 mg/dL AO ADM SS Comment on above: Interpretive Data: U se of this assay is not recommended for patients undergoing treatment with eltrombopag due to the potential for falsely elevated results. Calcium [Mass/Vol] 9.2 mg/dL Normal 8.4 - 10. 2 mg/dL AO ADM SS Chloride [Moles/Vol] 104 mmol/L Normal 98 - 10 7 mmol/L AO ADM SS CO2 [Moles/Vol] 25 mmol/L Normal 23 - 31 mmol/L AO AD M SS Creatinine [Mass/Vol] 1.08 mg/dL Normal 0.70 - 1.30 mg/dL AO ADM SS Electrolyte Balance 10.0 mEq/L Normal 4.0 - 15 .0 mEq/L AO ADM SS Eosinophil, Absolute 0.2 103/mcL Normal 0.0 - 0 .4 10^3/mcL AO Workflow SS Eosinophils/100 WBC (Bld) 1.4 % Normal 0.0 - 7.0 % AO Workflow SS Erythrocyte distribution width (RBC) [Ratio] 16.9 % High 11.5 - 14.5 % AO Workflow SS GFR/1.73 sq M.predicted among blacks MDRD (S/P/Bld) [Vol rate/Area] 81 ml/min/1.73sqm Invalid Interpretation Code AO Chemistry S Comment on above: Interpretive Data: GFR Population mean for , Non- Americans Ages 20-29 = 116 mL/min/1.73 sq.m. Ages 30-39 = 107 mL/min/1.73 sq.m. Ages 40-49 = 99 mL/min/1.73 sq.m. Ages 50-59 = 93 mL/min/1.73 sq.m. Ages 60-69 = 85 mL/min/1.73 sq.m. Ages 70+ = 75 mL/min/1.73 sq.m. Chronic Kidney Disease: Less than 60 mL/min/1.73 square meters End Stage Renal Disease: Less than 15 mL/min/1.73 square meters GFR/1.73 sq M.predicted among non-blacks MDRD (S/P/Bld) [Vol rate/Area] 67 ml/min/1.73sqm Invalid Interpretation Code AO Chemistry S Comment on above: Interpretive Data: GFR Population mean for , Non- Americans Ages 20-29 = 116 mL/min/1.73 sq.m. Ages 30-39 = 107 mL/min/1.73 sq.m. Ages 40-49 = 99 mL/min/1.73 sq.m. Ages 50-59 = 93 mL/min/1.73 sq.m. Ages 60-69 = 85 mL/min/1.73 sq.m. Ages 70+ = 75 mL/min/1.73 sq.m. Chronic Kidney Disease: Less than 60 mL/min/1.73 square meters End Stage Renal Disease: Less than 15 mL/min/1.73 square meters Globulin 3.9 G/dL Invalid Interpretation Code AO ADM SS Glucose [Mass/Vol] 145 mg/dL High 83 - 110 mg/dL AO ADM SS Hematocrit (Bld) [Volume fraction] 43.4 % Normal 42.0 - 52.0 % AO Workflow SS Hemoglobin (Bld) [Mass/Vol] 13.9 G/dL Low 14.0 - 18.0 G/dL AO Workflow SS Lymphocyte, Absolute 1.6 103/mcL Normal 0.8 - 3 .9 10^3/mcL AO Workflow SS Lymphocytes/100 WBC (Bld) 14.0 % Normal 10.0 - 50.0 % AO Workflow SS MCH (RBC) [Entitic mass] 26.9 pg Low 27.0 - 31.2 pg AO Workflow SS MCHC 31.9 G/dL Normal 31.8 - 35.4 G/dL AO Workflow SS MCV (RBC) [Entitic vol] 84.4 fL Normal 80.0 - 94.0 fL AO Workflow SS Monocyte, Absolute 1.0 103/mcL Normal 0.2 - 1.0 10^3/mcL AO Workflow SS Monocytes/100 WBC (Bld) 8.5 % Normal 1.7 - 13.0 % AO Workflow SS Neutrophil, Absolute 8.7 103/mcL High 2.9 - 6 .2 10^3/mcL AO Workflow SS Neutrophils/100 WBC (Bld) 75.1 % Normal 37.0 - 80.0 % AO Workflow SS Platelet mean volume (Bld) [Entitic vol] 7.9 fL Normal 7.4 - 10.4 fL AO Workflow SS Platelets (Bld) [#/Vol] 376 103/mcL Normal 130 - 400 10^3/mcL AO Workflow SS Potassium [Moles/Vol] 3.7 mmol/L Normal 3.5 - 5.1 mmol/L AO ADM SS Protein [Mass/Vol] 7.3 G/dL Normal 6.4 - 8.2 G/dL AO ADM SS RBC (Bld) [#/Vol] 5.15 106/mcL Normal 4.04 - 6.1 3 10^6/mcL AO Workflow SS Sodium [Moles/Vol] 139 mmol/L Normal 136 - 145 mmol/L AO ADM SS Urea nitrogen [Mass/Vol] 9 mg/dL Normal 7 - 18 mg/dL AO ADM SS Urea nitrogen/Creatinine [Mass ratio] 8 ratio Normal 7 - 27 ratio AO ADM SS WBC (Bld) [#/Vol] 11.6 103/mcL High 4.6 - 10.8 10^3/mcL AO Workflow SS MRI SPINE LUMBAR W/O CONTRAS Ton 12-27-2023 MRI SPINE LUMBAR W/O CONTRAST ORIGINAL EXAMINATION: MRI OF THE LUMBAR SPINE WITHOUT CONTRAST 12/25/2023 12:10 pm TECHNIQUE: Multiplanar multisequence MRI of the lumbar spine was performed without the administration of intravenous contrast. COMPARISON: 01/09/2021 HISTORY: ORDERING SYSTEM PROVIDED HISTORY: Reason for Exam: Spinal stenosis, lumbar region without neurogenic claudication FINDINGS: For purposes of this dictation, it is assumed that there are 5 [id number], lumbar-type vertebrae, and the most caudal fully segmented lumbar vertebra is labeled L5. The lumbar spine demonstrates normal alignment. Vertebral bodies are normal in height. There is a normal marrow signal pattern. Multilevel disc desiccation The conus medullaris terminates at a normal level and the nerve roots of the cauda equina appear normal. Hyperintense T2 signal left renal lesion is similar to the prior study and likely a cyst. No suspicious abnormality seen in the visualized paraspinal tissues are retroperitoneum. L1-2: A small right central disc protrusion is again identified. No significant stenosis. Mild facet arthropathy. L2-3: Mild disc osteophyte and facet arthropathy. No stenosis L3-4: Minimal disc osteophyte and facet arthropathy. No stenosis L4-5: Mild disc bulge/disc osteophyte. Facet arthropathy noted. Mild flattening of the thecal sac visualized. There is a small annular fissure. Mild bilateral foraminal narrowing. L5-S1: Mild disc bulge. Facet arthropathy. No significant stenosis. Mild digit IMPRESSION: Degenerative changes are similar to the prior exam Interpreted by: Chino Tidwell MD Preliminary Report By: Chino Tidwell MD Electronically signed By Chino Tidwell MD Dictated Date: 12/27/2023 7:56:14 AM Prelim Date: 12/27/2023 8:00:24 AM Sign Date: 12/27/2023 8:00:24 AM Ordering Provider: JENNIFER CABELLO [facility] ([place]) CT THORAX SCREENING W/O CONT Pool 10-08-2023 CT THORAX SCREENING W/O CONTRAST ORIGINAL EXAMINATION: LOW DOSE SCREENING CT OF THE CHEST WITHOUT CONTRAST10/03/2023 4:55 pm TECHNIQUE: Low dose lung cancer screening CT of the chest was performed without the administration of intravenous contrast. Multiplanar reformatted images are provided for review. Automated exposure control, iterative reconstruction, and/or weight based adjustment of the mA/kV was utilized to reduce the radiation dose to as low as reasonably achievable. COMPARISON: None. HISTORY: ORDERING SYSTEM PROVIDED HISTORY: Reason for Exam: Lung Cancer Screening 20 pack year hx, pt c/o SOB, CP. 73-year-old male with 20 pack-years smoking history. FINDINGS: The heart is prominent size. Trace pericardial fluid inferiorly. Atherosclerosis seen of the coronary arteries and aorta. The main pulmonary artery is dilated suggestive of pulmonary arterial hypertension. The thoracic aorta is normal in caliber. Prominent 1.1 cm lymph (2, 45). Other subcentimeter mediastinal lymph nodes not pathologically enlarged per CT criteria identified. No axillary lymphadenopathy. No suspicious findings seen in the visualized portion of the abdomen. Prior cholecystectomy. Similar appearance of the left adrenal gland which may represent hyperplasia versus a benign adenoma. A lymph node in the martha hepatis region on image 120 is 1.3 cm in short axis, previously subcentimeter. The abdomen is not evaluated in detail. Trachea and mainstem bronchi are patent. No suspicious endotracheal or endobronchial nodule is demonstrated. Emphysema. Scattered areas of pleural and parenchymal scarring. Scattered areas of subpleural reticular fibrosis. Mild lower lobe bronchial wall thickening. No pulmonary consolidation is identified. No pneumothorax or pleural effusion. Tiny subpleural superior segment right upper lobe calcified granuloma. Reference nodule(s) annotated on series 2: 6 mm left lower lobe ground-glass nodule, image 69. 4 mm left lower lobe nodule, image 94. No aggressive osseous lesions visible. Degenerative changes seen in the spine. IMPRESSION: Mildly enlarged mediastinal precarinal lymph node which may be hyperplastic/react noelle although 3 month follow-up CT recommended. Enlarged upper abdominal lymph node is new since the prior exam. A 3 month follow-up CT abdomen pelvis with contrast advised Small solid and ground-glass lung nodules. For patients with appropriate lung cancer risk, annual CT screening is recommended. Coronary artery atherosclerotic calcifications. Information below is for Lung nodule tracking purposes: Nodule: S3 NS1 BLN Other Findings: P-CAC Change: Na Recall : 3m fu Recall Type: CT LungRads: 2s I have personally reviewed the images of this examination and agree with the resident's findings and interpretations. RECOMMENDATIONS: Lung-RADS: Category 2, Benign appearance or behavior. Management: Continue annual lung screening with LDCT in 12 months. S Modifier-may add on to category 0-4 coding. Management: As appropriate to specific finding. Interpreted by: Chino Tidwell MD Preliminary Report By: Vera Roy Electronically signed By Chino Tidwell MD Dictated Date: 10/08/2023 8:37:13 AM Prelim Date: 10/08/2023 9:33:34 AM Sign Date: 10/08/2023 9:33:34 AM Ordering Provider: MARCOS HARPER Normal [facility]) Ameena 02-19-2023 U Creatinine 110.7 mg/dL Normal 39.0-259.0 [facility]) Comment on above: Performed By: #### M ALBR #### [address] [address] U Microalb [address] mcg/dL Normal [facility]) Comment on above: Performed By: #### M ALBR #### [address] [address] U Ratio Alb/Cre 125 mcg/mg High 0-30 [facility]) Comment on above: Performed By: #### M ALBR #### [address] [address] LABORATORYOrdered By: Nayla Frye on 08-12-2022 Creatinine [Mass/Vol] 0.91 mg/dL Invalid Interpretation Code 0.70 - 1.30 mg/dL AO Chemistry S LABORATORYOrdered By: SYSTEM SYSTEM on 08-12-2022 GFR 99 ml/min/1.73sqm Invalid Interpretation Code AO Chemistry S GFR Non- 82 ml/min/1.73sqm Invalid Interpretation Code AO Chemistry S LABORATORYOrdered By: Meg Galeano on 08-28-2021 Albumin BCP dye [Mass/Vol] 3.3 G/dL Invalid Interpretation Code 3.4 - 4.8 G/dL AO ADM SS Albumin/Globulin [Mass ratio] 0.9 {ratio} Invalid Interpretation Code 1.1 - 2.5 ratio AO ADM SS ALP [Catalytic activity/Vol] 128 U/L Invalid Interpretation Code 40 - 135 U/L AO ADM SS ALT With P-5'-P [Catalytic activity/Vol] 63 U/L Invalid Interpretation Code 16 - 63 U/L AO ADM SS AST With P-5'-P [Catalytic activity/Vol] 33 U/L Invalid Interpretation Code 10 - 40 U/L AO ADM SS Basophil, Absolute 0.10 103/mcL Invalid Interpretation Code 0.00 - 0.19 10^3/mcL AO Auto Heme SS Basophils/100 WBC (Bld) 0.8 % Invalid Interpretation Code 0.0 - 2.5 % AO Auto Heme SS Bilirubin [Mass/Vol] 0.5 mg/dL Invalid Interpretation Code 0.2 - 1.0 mg/dL AO ADM SS Calcium [Mass/Vol] 9.0 mg/dL Invalid Interpretation Code 8.4 - 10.2 mg/dL AO ADM SS Chloride [Moles/Vol] 107 mmol/L Invalid Interpretation Code 98 - 107 mmol/L AO ADM SS Cholesterol [Mass/Vol] 194 mg/dL Invalid Interpretation Code 0 - 200 mg/dL AO ADM SS Cholesterol in HDL [Mass/Vol] 38 mg/dL Invalid Interpretation Code 40 - 60 mg/dL AO ADM SS Cholesterol in LDL [Mass/Vol] 135 mg/dL Invalid Interpretation Code 0 - 130 mg/dL AO ADM SS CO2 [Moles/Vol] 28 mmol/L Invalid Interpretation Code 23 - 31 mmol/L AO ADM SS Creatinine [Mass/Vol] 0.66 mg/dL Invalid Interpretation Code 0.70 - 1.30 mg/dL AO ADM SS Electrolyte Balance 9.0 mEq/L Invalid Interpretation Code 4.0 - 15.0 mEq/L AO ADM SS Eosinophil, Absolute 0.20 103/mcL Invalid Interpretation Code 0.00 - 0.40 10^3/mcL AO Auto Heme SS Eosinophils/100 WBC (Bld) 1.2 % Invalid Interpretation Code 0.0 - 7.0 % AO Auto Heme SS Erythrocyte distribution width (RBC) [Ratio] 15.2 % Invalid Interpretation Code 11.5 - 14.5 % AO Auto Heme SS Globulin 3.5 G/dL Invalid Interpretation Code AO ADM SS Glucose [Mass/Vol] 115 mg/dL Invalid Interpretation Code 83 - 110 mg/dL AO ADM SS Hematocrit (Bld) [Volume fraction] 44.4 % Invalid Interpretation Code 42.0 - 52.0 % AO Auto Heme SS Hemoglobin (Bld) [Mass/Vol] 14.6 G/dL Invalid Interpretation Code 14.0 - 18.0 G/dL AO Auto Heme SS Lymphocyte, Absolute 1.80 103/mcL Invalid Interpretation Code 0.77 - 3.85 10^3/mcL AO Auto Heme SS Lymphocytes/100 WBC (Bld) 14.3 % Invalid Interpretation Code 10.0 - 50.0 % AO Auto Heme SS MCH (RBC) [Entitic mass] 29.4 pg Invalid Interpretation Code 27.0 - 31.2 pg AO Auto Heme SS MCHC (RBC) [Mass/Vol] 32.9 G/dL Invalid Interpretation Code 31.8 - 35.4 G/dL AO Auto Heme SS MCV (RBC) [Entitic vol] 89.6 fL Invalid Interpretation Code 80.0 - 94.0 fL AO Auto Heme SS Monocyte, Absolute 1.00 103/mcL Invalid Interpretation Code 0.15 - 1.00 10^3/mcL AO Auto Heme SS Monocytes/100 WBC (Bld) 7.6 % Invalid Interpretation Code 1.7 - 13.0 % AO Auto Heme SS Neutrophil, Absolute 9.60 103/mcL Invalid Interpretation Code 2.85 - 6.16 10^3/mcL AO Auto Heme SS Neutrophils/100 WBC (Bld) 76.1 % Invalid Interpretation Code 37.0 - 80.0 % AO Auto Heme SS Platelet mean volume (Bld) [Entitic vol] 7.4 fL Invalid Interpretation Code 7.4 - 10.4 fL AO Auto Heme SS Platelets (Bld) [#/Vol] 276 103/mcL Invalid Interpretation Code 130 - 400 10^3/mcL AO Auto Heme SS Potassium [Moles/Vol] 4.0 mmol/L Invalid Interpretation Code 3.5 - 5.1 mmol/L AO ADM SS Protein [Mass/Vol] 6.8 G/dL Invalid Interpretation Code 6.4 - 8.2 G/dL AO ADM SS RBC (Bld) [#/Vol] 4.96 106/mcL Invalid Interpretation Code 4.04 - 6.13 10^6/mcL AO Auto Heme SS Sodium [Moles/Vol] 144 mmol/L Invalid Interpretation Code 136 - 145 mmol/L AO ADM SS Triglyceride [Mass/Vol] 105 mg/dL Invalid Interpretation Code 0 - 150 mg/dL AO ADM SS TSH Qn 1.04 m[IU]/L Invalid Interpretation Code 0.36 - 3.74 mcIU/mL AO ADM SS Urea nitrogen [Mass/Vol] 17 mg/dL Invalid Interpretation Code 7 - 18 mg/dL AO ADM SS Urea nitrogen/Creatinine [Mass ratio] 26 ratio Invalid Interpretation Code 7 - 27 ratio AO ADM SS WBC (Bld) [#/Vol] 12.60 103/mcL Invalid Interpretation Code 4.60 - 10.80 10^3/mcL AO Auto Heme SS LABORATORYOrdered By: SYSTEM SYSTEM on 08-28-2021 GFR 144 ml/min/1.73sqm Invalid Interpretation Code AO Chemistry S GFR Non- 119 ml/min/1.73sqm Invalid Interpretation Code AO Chemistry S LABORATORYOrdered By: Giuseppe Clement on 04-12-2021 Albumin BCP dye [Mass/Vol] 3.5 G/dL Invalid Interpretation Code 3.4 - 4.8 G/dL AO ADM SS Albumin/Globulin [Mass ratio] 1.0 {ratio} Invalid Interpretation Code 1.1 - 2.5 ratio AO ADM SS ALP [Catalytic activity/Vol] 123 U/L Invalid Interpretation Code 40 - 135 U/L AO ADM SS ALT With P-5'-P [Catalytic activity/Vol] 36 U/L Invalid Interpretation Code 16 - 63 U/L AO ADM SS Amylase [Catalytic activity/Vol] 50 U/L Invalid Interpretation Code 25 - 115 U/L AO ADM SS AST With P-5'-P [Catalytic activity/Vol] 24 U/L Invalid Interpretation Code 10 - 40 U/L AO ADM SS Bilirubin [Mass/Vol] 0.7 mg/dL Invalid Interpretation Code 0.2 - 1.0 mg/dL AO ADM SS Calcium [Mass/Vol] 9.2 mg/dL Invalid Interpretation Code 8.4 - 10.2 mg/dL AO ADM SS Chloride [Moles/Vol] 103 mmol/L Invalid Interpretation Code 98 - 107 mmol/L AO ADM SS CO2 [Moles/Vol] 31 mmol/L Invalid Interpretation Code 23 - 31 mmol/L AO ADM SS Creatinine [Mass/Vol] 0.93 mg/dL Invalid Interpretation Code 0.70 - 1.30 mg/dL AO ADM SS Electrolyte Balance 10.0 mEq/L Invalid Interpretation Code AO ADM SS Globulin 3.6 G/dL Invalid Interpretation Code AO ADM SS Glucose [Mass/Vol] 120 mg/dL Invalid Interpretation Code 83 - 110 mg/dL AO ADM SS Lipase [Catalytic activity/Vol] 77 U/L Invalid Interpretation Code 73 - 393 U/L AO ADM SS Potassium [Moles/Vol] 4.0 mmol/L Invalid Interpretation Code 3.5 - 5.1 mmol/L AO ADM SS Protein [Mass/Vol] 7.1 G/dL Invalid Interpretation Code 6.4 - 8.2 G/dL AO ADM SS Sodium [Moles/Vol] 144 mmol/L Invalid Interpretation Code 136 - 145 mmol/L AO ADM SS Urea nitrogen [Mass/Vol] 17 mg/dL Invalid Interpretation Code 7 - 18 mg/dL AO ADM SS Urea nitrogen/Creatinine [Mass ratio] 18 ratio Invalid Interpretation Code 7 - 27 ratio AO ADM SS LABORATORYOrdered By: Mary Baugh on 04-12-2021 Basophil, Absolute 0.10 103/mcL Invalid Interpretation Code 0.00 - 0.19 10^3/mcL AO Auto Heme SS Basophils/100 WBC (Bld) 0.7 % Invalid Interpretation Code 0.0 - 2.5 % AO Auto Heme SS Eosinophil, Absolute 0.10 103/mcL Invalid Interpretation Code 0.00 - 0.40 10^3/mcL AO Auto Heme SS Eosinophils/100 WBC (Bld) 1.1 % Invalid Interpretation Code 0.0 - 7.0 % AO Auto Heme SS Erythrocyte distribution width (RBC) [Ratio] 14.5 % Invalid Interpretation Code 11.5 - 14.5 % AO Auto Heme SS Hematocrit (Bld) [Volume fraction] 45.1 % Invalid Interpretation Code 42.0 - 52.0 % AO Auto Heme SS Hemoglobin (Bld) [Mass/Vol] 15.2 G/dL Invalid Interpretation Code 14.0 - 18.0 G/dL AO Auto Heme SS Lymphocyte, Absolute 1.50 103/mcL Invalid Interpretation Code 0.77 - 3.85 10^3/mcL AO Auto Heme SS Lymphocytes/100 WBC (Bld) 14.2 % Invalid Interpretation Code 10.0 - 50.0 % AO Auto Heme SS MCH (RBC) [Entitic mass] 30.1 pg Invalid Interpretation Code 27.0 - 31.2 pg AO Auto Heme SS MCHC (RBC) [Mass/Vol] 33.9 G/dL Invalid Interpretation Code 31.8 - 35.4 G/dL AO Auto Heme SS MCV (RBC) [Entitic vol] 89.0 fL Invalid Interpretation Code 80.0 - 94.0 fL AO Auto Heme SS Monocyte, Absolute 0.90 103/mcL Invalid Interpretation Code 0.15 - 1.00 10^3/mcL AO Auto Heme SS Monocytes/100 WBC (Bld) 8.1 % Invalid Interpretation Code 1.7 - 13.0 % AO Auto Heme SS Neutrophil, Absolute 8.20 103/mcL Invalid Interpretation Code 2.85 - 6.16 10^3/mcL AO Auto Heme SS Neutrophils/100 WBC (Bld) 75.9 % Invalid Interpretation Code 37.0 - 80.0 % AO Auto Heme SS Platelet mean volume (Bld) [Entitic vol] 8.2 fL Invalid Interpretation Code 7.4 - 10.4 fL AO Auto Heme SS Platelets (Bld) [#/Vol] 319 103/mcL Invalid Interpretation Code 130 - 400 10^3/mcL AO Auto Heme SS RBC (Bld) [#/Vol] 5.06 106/mcL Invalid Interpretation Code 4.04 - 6.13 10^6/mcL AO Auto Heme SS WBC (Bld) [#/Vol] 10.80 103/mcL Invalid Interpretation Code 4.60 - 10.80 10^3/mcL AO Auto Heme SS LABORATORYOrdered By: SYSTEM SYSTEM on 04-12-2021 GFR 97 ml/min/1.73sqm Invalid Interpretation Code AO Chemistry S GFR Non- 80 ml/min/1.73sqm Invalid Interpretation Code AO Chemistry S TSHon 11-29-2016 Thyroid stimulating hormone (TSH) 1.59 mcIU/mL Normal 0.27-4.20 [facility] Comment on above: Performed By: #### T ####[address] [address] Vital Signs Date Time Vital Sign Value Performing Clinician Rosalba hernadez 11-30-2024 08:01-0400 Diastolic blood pressure 77 mm[Hg] Marcos RANDALL Work Phone: [facility] 11-30-2024 08:01-0400 Heart rate 69 /min Marcos RANDALL Work Phone: [facility] 11-30-2024 08:01-0400 Respiratory rate 17 /min Marcos Baltes MENTAL HEALTH NURSE PRACTITIONER-C Work Phone: [facility] 11-30-2024 08:01-0400 SaO2% (BldA) [Mass fraction] 100 % Marcos Baltes MENTAL HEALTH NURSE PRACTITIONER-C Work Phone: [facility] 11-30-2024 08:01-0400 Systolic blood pressure 107 mm[Hg] Marcos Baltes MENTAL HEALTH NURSE PRACTITIONER-C Work Phone: [facility] 11-30-2024 04:00-0400 Body temperature 97.2 [degF] Marcos Baltes MENTAL HEALTH NURSE PRACTITIONER-C Work Phone: [facility] 11-30-2024 04:00-0400 Inhaled oxygen flow rate 2 L/min Marcos Baltes MENTAL HEALTH NURSE PRACTITIONER-C Work Phone: [facility] 11-30-2024 01:58-0400 Body mass index (BMI) [Ratio] 28.7 kg/m2 Marcos Baltes MENTAL HEALTH NURSE PRACTITIONER-C Work Phone: [facility] 11-30-2024 01:58-0400 Body weight 96.1 kg Marcos Baltes MENTAL HEALTH NURSE PRACTITIONER-C Work Phone: [facility] 11-29-2024 12:21-0400 Body height 182.88 cm Marcos Baltes MENTAL HEALTH NURSE PRACTITIONER-C Work Phone: [facility] 11-05-2024 11:21-0400 Body height 182.88 cm Marcos Baltes MENTAL HEALTH NURSE PRACTITIONER-C Work Phone: [facility] 11-05-2024 11:21-0400 Body mass index (BMI) [Ratio] 28.8 kg/m2 Marcos Baltes MENTAL HEALTH NURSE PRACTITIONER-C Work Phone: [facility] 11-05-2024 11:21-0400 Body weight 96.61 kg Marcos Baltes MENTAL HEALTH NURSE PRACTITIONER-C Work Phone: [facility] 11-05-2024 11:21-0400 Diastolic blood pressure 64 mm[Hg] Marcos Baltes MENTAL HEALTH NURSE PRACTITIONER-C Work Phone: [facility] 11-05-2024 11:21-0400 Heart rate 53 /min Marcos Baltes MENTAL HEALTH NURSE PRACTITIONER-C Work Phone: [facility] 11-05-2024 11:21-0400 Respiratory rate 18 /min Marcos Baltes MENTAL HEALTH NURSE PRACTITIONER-C Work Phone: [facility] 11-05-2024 11:21-0400 Systolic blood pressure 114 mm[Hg] Marcos Baltes MENTAL HEALTH NURSE PRACTITIONER-C Work Phone: [facility] 09-17-2024 11:12-0400 Body height 182.88 cm Marcos Baltes MENTAL HEALTH NURSE PRACTITIONER-C Work Phone: [facility] 09-17-2024 11:12-0400 Body mass index (BMI) [Ratio] 30.1 kg/m2 Marcos Baltes MENTAL HEALTH NURSE PRACTITIONER-C Work Phone: [facility] 09-17-2024 11:12-0400 Body weight 100.69 kg Marcos Baltes MENTAL HEALTH NURSE PRACTITIONER-C Work Phone: [facility] 09-17-2024 11:12-0400 Diastolic blood pressure 65 mm[Hg] Marcos Baltes MENTAL HEALTH NURSE PRACTITIONER-C Work Phone: [facility] 09-17-2024 11:12-0400 Heart rate 64 /min Marcos Baltes MENTAL HEALTH NURSE PRACTITIONER-C Work Phone: [facility] 09-17-2024 11:12-0400 Respiratory rate 18 /min Marcos Baltes MENTAL HEALTH NURSE PRACTITIONER-C Work Phone: [facility] 09-17-2024 11:12-0400 Systolic blood pressure 118 mm[Hg] Marcos Baltes MENTAL HEALTH NURSE PRACTITIONER-C Work Phone: [facility] 08-20-2024 07:58-0400 Body height 182.88 cm Marcos Baltes MENTAL HEALTH NURSE PRACTITIONER-C Work Phone: [facility] 08-20-2024 07:58-0400 Body mass index (BMI) [Ratio] 30.1 kg/m2 Marcos Baltes MENTAL HEALTH NURSE PRACTITIONER-C Work Phone: [facility] 08-20-2024 07:58-0400 Body weight 100.69 kg Marcos Baltes MENTAL HEALTH NURSE PRACTITIONER-C Work Phone: [facility] 08-20-2024 07:58-0400 Diastolic blood pressure 70 mm[Hg] Marcos Baltes MENTAL HEALTH NURSE PRACTITIONER-C Work Phone: [facility] 08-20-2024 07:58-0400 Heart rate 58 /min Marcos Baltes MENTAL HEALTH NURSE PRACTITIONER-C Work Phone: [facility] 08-20-2024 07:58-0400 Respiratory rate 20 /min Marcos Baltes MENTAL HEALTH NURSE PRACTITIONER-C Work Phone: [facility] 08-20-2024 07:58-0400 Systolic blood pressure 121 mm[Hg] Marcos Baltes MENTAL HEALTH NURSE PRACTITIONER-C Work Phone: [facility] 07-17-2023 15:47-0500 Body height 182.88 cm MENTAL HEALTH NURSE PRACTITIONER-C Ileneamarjit Buckleyers MENTAL HEALTH NURSE PRACTITIONER Work Phone: [facility] 07-17-2023 15:47-0500 Body mass index (BMI) [Ratio] 30.1 kg/m2 MENTAL HEALTH NURSE PRACTITIONER-C Ilene Anderson MENTAL HEALTH NURSE PRACTITIONER Work Phone: [facility] 07-17-2023 15:47-0500 Body weight 100.69 kg MENTAL HEALTH NURSE PRACTITIONER-C Ilene Anderson MENTAL HEALTH NURSE PRACTITIONER Work Phone: [facility] 07-17-2023 15:47-0500 Diastolic blood pressure 84 mm[Hg] MENTAL HEALTH NURSE PRACTITIONER-C Ilene Anderson MENTAL HEALTH NURSE PRACTITIONER Work Phone: [facility] 07-17-2023 15:47-0500 Heart rate 69 /min MENTAL HEALTH NURSE PRACTITIONER-C Ilene Anderson MENTAL HEALTH NURSE PRACTITIONER Work Phone: [facility] 07-17-2023 15:47-0500 Respiratory rate 16 /min MENTAL HEALTH NURSE PRACTITIONER-C Ilene Anderson MENTAL HEALTH NURSE PRACTITIONER Work Phone: [facility] 07-17-2023 15:47-0500 Systolic blood pressure 122 mm[Hg] MENTAL HEALTH NURSE PRACTITIONER-C Ilene Anderson MENTAL HEALTH NURSE PRACTITIONER Work Phone: [facility] 07-15-2022 10:11-0500 Diastolic Blood Pressure Non-Invasive [address] PATO WEST MD [facility] 07-15-2022 10:11-0500 Heart rate 62 /min DR PATO WEST MD [facility] 07-15-2022 10:11-0500 Respiratory rate 17 /min DR PATO WEST MD [facility] 07-15-2022 10:11-0500 Systolic Blood Pressure Non-Invasive [address] PATO WEST MD [facility] 07-15-2022 09:59-0500 Diastolic Blood Pressure Non-Invasive [address] PATO WEST MD [facility] 07-15-2022 09:59-0500 Heart rate 57 /min DR PATO WEST MD [facility] 07-15-2022 09:59-0500 Respiratory rate 24 /min DR PATO WEST MD [facility] 07-15-2022 09:59-0500 Systolic Blood Pressure Non-Invasive [address] PATO WEST MD [facility] 07-15-2022 09:54-0500 Diastolic Blood Pressure Non-Invasive [address] PATO WEST MD [facility] 07-15-2022 09:54-0500 Heart rate 67 /min DR PATO WEST MD [facility] 07-15-2022 09:54-0500 Respiratory rate 24 /min DR PATO WEST MD [facility] 07-15-2022 09:54-0500 Systolic Blood Pressure Non-Invasive [address] PATO WEST MD [facility] 07-15-2022 09:45-0500 Respiratory Rate - Anes 22 br/min DR PATO WEST MD [facility] 07-15-2022 09:40-0500 Respiratory Rate - Anes 14 br/min DR PATO WEST MD [facility] 07-15-2022 08:34-0500 Body height 180.[address] PATO WEST MD [facility] 07-15-2022 08:34-0500 Body temperature 97.7 [degF] DR PATO WEST MD [facility] 07-15-2022 08:34-0500 Body weight [address] PATO WEST MD [facility] 07-15-2022 08:34-0500 Body weight 24.61 kg/m2 DR PATO WEST MD [facility] 07-15-2022 08:34-0500 Heart rate 61 /min DR PATO WEST MD [facility] Encounters Encounter Date Encounter Type Care Provider Facility Start: 12-16-2024 ambulatory Jovany Chi Gonsalo Facility:[facility] Start: 11-30-2024 ambulatory Marcos Harper MENTAL HEALTH NURSE PRACTITIONER -C Work Phone: -[facility] Start: 11-30-2024 Non-patient / Non-visit Dr. Elin BULLARD -[facility] Start: 11-29-2024 Non-patient / Non-visit Dr. Margarita selby MD -[facility] Work Phone: Start: 11-29-2024 Non-patient / Non-visit Dr. Bryan woods MD -[facility] Start: 11-29-2024 ambulatory Jovany Chi Gonsalo Facility:[facility] Start: 11-29-2024 [facility] Dr. Fco Aguilera MD -Intensive Care Unit Work Phone: Start: 11-05-2024 End: 11-05-2024 Patient encounter procedure Maikel Liang PA -[facility] Work Phone: Start: 11-05-2024 End: 11-05-2024 ambulatory Marcos Baltes MENTAL HEALTH NURSE PRACTITIONER-C Work Phone: [facility] Work Phone: Start: 09-30-2024 End: 09-30-2024 ambulatory Marcos Baltes MENTAL HEALTH NURSE PRACTITIONER-C Work Phone: [facility] Work Phone: Start: 09-30-2024 End: 09-30-2024 Patient encounter procedure Maikel Liang PA -Laboratory Work Phone: Start: 09-30-2024 End: 09-30-2024 ambulatory Maikel Liang Facility:[facility] Start: 09-17-2024 End: 09-17-2024 Patient encounter procedure Maikel Liang PA -[facility] Work Phone: Start: 09-17-2024 End: 09-17-2024 ambulatory Jovany Chi Gonsalo Facility[place] Start: 09-01-2024 End: 09-01-2024 ambulatory Marcos Baltes MENTAL HEALTH NURSE PRACTITIONER-C Work Phone: [facility] Work Phone: Start: 09-01-2024 End: 09-01-[address] Jovany Brush MD -Laboratory Work Phone: Start: 09-01-2024 End: 09-01-2024 ambulatory Jovany Chi Gonsalo Facility:[facility] Start: 08-30-2024 End: 08-30-2024 ambulatory Marcos Baltes MENTAL HEALTH NURSE PRACTITIONER-C Work Phone: [facility] Work Phone: Start: 08-30-2024 End: 08-30-2024 Patient encounter procedure Maikel Liang PA -Laboratory Work Phone: Start: 08-30-2024 End: 08-30-2024 ambulatory Maikel Darrioniter Facility:[facility] Start: 08-27-2024 Non-patient / Non-visit [facility] Work Phone: Start: 08-27-2024 End: 08-27-2024 ambulatory Marcos Harper MENTAL HEALTH NURSE PRACTITIONER-C Work Phone: [facility] Work Phone: Start: 08-27-2024 End: 08-27-2024 Patient encounter procedure Maikel WADE -Pulmonary Services/Neurology Work Phone: Start: 08-27-2024 End: 08-27-2024 ambulatory Maikel Liang Facility:[facility] Start: 08-20-2024 End: 08-20-2024 ambulatory Marcos Harper MENTAL HEALTH NURSE PRACTITIONER-C Work Phone: [facility] Work Phone: Start: 08-20-2024 End: 08-20-2024 Patient encounter procedure Maikel WADE -Radiology, [facility] Work Phone: Start: 08-20-2024 End: 08-20-2024 Patient encounter procedure Maikel WADE -[facility] Work Phone: Start: 08-20-2024 End: 08-20-2024 ambulatory Maikel Liang [place] Start: 08-20-2024 End: 08-20-2024 ambulatory Maikel Garth Facility:[facility] Start: 08-14-2024 End: 08-16-2024 Evaluation and management of inpatient JULIET BEAR LUMBER TAILER-RIM BUSTER Facility:[facility] Start: 07-16-2024 End: 09-10-2024 ambulatory MARCOS HARPER LUMBER TAILER-RIM BUSTER Facility:[facility] Start: 03-10-2024 End: 03-10-2024 ambulatory Breanne Mejia Facility:[facility] Start: 02-03-2024 End: 02-03-2024 ambulatory SONAM FAM LUMBER TAILER-AREA COUNSELOR Facility:[facility] Start: 02-03-2024 End: 02-03-2024 Patient encounter procedure MARCOS HARPER [facility] Start: 01-31-2024 ambulatory MARCOS HARPER LUMBER TAILER-RIM BUSTER Fa cility:[facility] Start: 01-27-2024 ambulatory MARCOS HARPER LUMBER TAILER-RIM BUSTER Fa cility:[facility] Start: 01-22-2024 ambulatory MARCOS HARPER LUMBER TAILER-RIM BUSTER Fa cility:[facility] Start: 01-20-2024 End: 01-24-2024 ambulatory MARCOS LEROY LUMBER TAILER-RIM BUSTER Facility:[facility] Start: 01-20-2024 End: 01-24-2024 Encounter for other preprocedural examination MARCOS LEROY LUMBER TAILER-RIM BUSTER Facility:[facility] Start: 01-20-2024 End: 01-24-2024 Outreach Lab MARCOS HARPER LUMBER TAILER-RIM BUSTER [facility] Start: 01-16-2024 ambulatory MARCOS HARPER LUMBER TAILER-RIM BUSTER Fa cility:[facility] Start: 12-25-2023 End: 12-25-2023 ambulatory JENNIFER CABELLO DO Facility:[facility] Start: 12-25-2023 End: 12-25-2023 Patient encounter procedure JENNIFER CABELLO DO [facility] Start: 10-30-2023 End: 10-30-2023 ambulatory MARCOS HARPER LUMBER TAILER-RIM BUSTER Facility:[facility] Start: 10-30-2023 End: 10-30-2023 Patient encounter procedure MARCOS HARPER [employer] TAILER[employer] B[employer] [facility] Start: 10-03-2023 End: 10-03-2023 ambulatory MARCOS HARPER LUMBER TAILER-RIM BUSTER Facility:[facility] Start: 10-03-2023 End: 10-03-2023 Patient encounter procedure MARCOS HARPER L[employer] TAILER[employer] [facility] Start: 09-24-2023 End: 10-29-2023 ambulatory MARCOS HARPER LUMBER TAILER-RIM BUSTER Facility:[facility] Start: 09-24-2023 End: 10-29-2023 Physical therapy management MARCOS HARPER LUMBER TAILER-RIM BUSTER [facility] Start: 08-22-2023 Non-patient / Non-visit MENTAL HEALTH NURSE PRACTITIONER-C Sue Anderson MENTAL HEALTH NURSE PRACTITIONER Work Phone: [facility] Start: 08-22-2023 End: 08-22-2023 ambulatory MENTAL HEALTH NURSE PRACTITIONER-C Ilene Anderson MENTAL HEALTH NURSE PRACTITIONER Work Phone: [facility] Work Phone: Start: 08-22-2023 End: 08-22-2023 Patient encounter procedure MENTAL HEALTH NURSE PRACTITIONER-C Ilene Anderson MENTAL HEALTH NURSE PRACTITIONER Work Phone: [facility]-Cardiovascul [facility] Services Work Phone: Start: 07-17-2023 End: 07-17-2023 Patient encounter procedure MENTAL HEALTH NURSE PRACTITIONER-C Ilene Anderson MENTAL HEALTH NURSE PRACTITIONER Work Phone: [facility] Work Phone: Start: 02-18-2023 End: 2023 ambulatory MARCOS LEROY LUMBER TAILER-RIM BUSTER Facility:[facility] Start: 08-29-2022 End: 08-29-[address] PATO WEST [facility] Start: 08-12-2022 End: 08-12-2022 Preprocedural examination done KAREN STAPLES MD [facility] Start: 08-12-2022 End: 08-12-2022 Patient encounter procedure MARCOS HARPER LUMBER TAILER-[employer] B[employer]ER [facility] Start: 07-15-2022 End: 07-15-[address] PATO WEST MD [facility] Start: 06-21-2022 End: 06-21-[address] PATO WEST MD [facility] Start: 01-31-2022 End: 01-31-2022 ambulatory [facility] Work Phone: Start: 01-31-2022 End: 01-31-2022 Patient encounter procedure [facility] Start: 08-28-2021 End: 08-28-2021 Patient encounter procedure ILEEN JUSTIN LUMBER TAILER-RIM BUSTER [facility] Start: 07-24-2021 End: 07-24-2021 Patient encounter procedure ILENE ANDERSON LUMBER TAILER-RIM BUSTER [facility] Start: 04-26-2021 End: 04-26-2021 Patient encounter procedure MICKEY SPAULDING LUMBER TAILER-RIM BUSTER [facility] Start: 04-12-2021 End: 04-12-2021 Patient encounter procedure MICKEY SPAULDING LUMBER TAILER-RIM BUSTER [facility] Start: 11-29-2016 End: 11-30-2016 Ambulatory SKYLA PORTILLO Facility:[facility] Procedures Date Procedure Procedure Detail Performing Clinician Start: 11-30-2024 Estimated creatinine clearance Marcos Baltes MENTAL HEALTH NURSE PRACTITIONER-C Work Phone: Start: 11-30-2024 Serum inorganic phos phate measurement Marcos Baltes MENTAL HEALTH NURSE PRACTITIONER-C Work Phone: Start: 11-29-2024 Plain chest X-ray Marcos Baltes MENTAL HEALTH NURSE PRACTITIONER-C Work Phone: Start: 11-29-2024 Coagulation time, activated Marcos Baltes MENTAL HEALTH NURSE PRACTITIONER-C Work Phone: Start: 09-01-2024 Hepatitis C antibody measurement Marcos Baltes MENTAL HEALTH NURSE PRACTITIONER-C Work Phone: Comment on above: Reactive: Presumptiv e evidence of antibodies to HCV. Follow CDC recommendations for supplemental testing.Non-Reactive: Antibodies to HCV were not detected; does not exclude the possibility of exposure to HCVReactive Results are presumptive evidence of antibodies to HCV. Follow CDC recommendations for supplemental testing.Order confirmation testing: HCV Quant by PCR testing - HCVPCR #[id number] Non Reactive: < 0.8 Equivocal: >/= 0.8 to < 1.0 Reactive: >/= 1.0The CDC requires that a reactive/equivocal HCV antibody result be sent out for confirmation. HCV Quant by PCR testing. Start: 09-01-2024 Vitamin D, 25-hydrox y measurement Marcos Harper MENTAL HEALTH NURSE PRACTITIONER-C Work Phone: Comment on above: Vitamin D StatusDefi ciency: <20 ng/mL (50nmol/L)Insufficiency: 20-30 ng/mL (50-75 nmol/L)Sufficiency: 30-100 ng/mL (75-250 nmol/L)Toxicity: >100 ng/mL (>250 nmol/L) Start: 08-20-2024 X-ray of chest, PA a nd lateral views Marcos Harper MENTAL HEALTH NURSE PRACTITIONER-C Work Phone: Start: 08-20-2024 Evaluation of diagno stic study results Marcos Harper [facility]ENTAL HEALTH NURSE [facility]ACTITION[facility] [employer] Work Phone: Start: 08-22-2023 Cardiovascular stres s test using pharmacologic stress agent MENTAL HEALTH NURSE PRACTITIONER-C Ilene Anderson MENTAL HEALTH NURSE PRACTITIONER Work Phone: Start: 01-31-2022 CT of chest Start: 02-10-2018 Repair of hip MICKEY S EFFENS [employer] Comment on above: RIGHT ANTERIOR HIP R EPLACEMENT Start: 08-26-2017 Total replacement of left hip joint MICKEY KATHI [employer] Cataract (morphologi c abnormality) MICKEY JASSON [employer] Comment on above: REBECCA Cholecystectomy MICKEY SEFF ENS [employer] Comment on above: 1990S Colonoscopy MICKEY KATHI [employer] Dilation of urethra MICKEY SPAULDING [employer] Tonsillectomy MICKEY Choe [employer] Plan of Treatment Date Care Activity Detail Author Start: 12-02-2024 Electrocardiographic procedure [facility] Start: 12-01-2024 Electrocardiographic procedure [facility] Start: 11-30-2024 [facility] Start: 11-30-2024 [facility] Start: 11-30-2024 Inhalation therapy procedure [facility] Start: 11-29-2024 Care regimes management [facility] Start: 11-29-2024 End: 11-29-2024 Notification of physician [facility] Start: 11-29-2024 Assessment of risk o f venous thromboembolism [facility] Start: 11-29-2024 Continuous pulse oximetry [facility] Start: 11-29-2024 Insertion of cathete r into peripheral vein [facility] Start: 11-29-2024 Measuring intake and output [facility] Start: 11-29-2024 Providing care according to standard [facility] Start: 11-29-2024 Verification routine [facility] Start: 11-29-2024 Vital signs measurements [facility] Start: 11-29-2024 End: 11-29-2024 [facility] Start: 11-29-2024 Consultation [facility] Start: 11-29-2024 Admission procedure [facility] Start: 11-29-2024 Following clinical pathway protocol [facility] Start: 11-29-2024 Cardiac monitoring [facility] Start: 11-29-2024 Cardiac rehabilitation - phase 1 [facility] Start: 11-29-2024 Notification of physician [facility] Start: 11-29-2024 Oxygen therapy [facility] Start: 11-29-2024 Patient discharge [facility] Start: 11-29-2024 Pulse taking [facility] Start: 11-29-2024 End: 11-29-2024 [facility] 24 Hour ECG [facility] Basic metabolic 2008 panel with ionized calcium - Serum or Plasma [facility] CBC W Auto Different ial panel - Blood [facility] Hemoglobin A1c/Hemog lobin.total in Blood [facility] Immunizations Immunization Date Immunization Notes Care Provider Cheryl thorpe 05-09-[address] PATO WEST MD [facility] 03-07-[address] PATO WEST MD [facility] 03-04-2022 influenza, injectabl e, quadrivalent, contains preservative DR PATO WEST MD [facility] 08-20-2021 pneumococcal polysaccharide vaccine, 23 valent; Translations: [Pneumovax 23] ILENE ANDERSON [employer] [facility] 04-12-2021 SARS-CoV-2 mRNA (tozinameran) vaccine ILENE JUSTIN [employer] [facility] Comment on above: Result Comment: 2021: [id number] 03-26-2021 influenza, high dose seasonal, preservative-free; Translations: [Fluad Quadrivalent PF ] MICKEY SPAULDING [employer] [facility] 08-24-2020 SARS-CoV-2 mRNA (tozinameran) vaccine MICKEY SPAULDING [employer] [facility] 08-03-2020 SARS-CoV-2 mRNA (tozinameran) vaccine MICKEY SPAULDING [employer] [facility] Comment on above: Result Comment: 2020: [id number] 02-11-2017 influenza virus vacc ine, unspecified formulation MICKEY SPAULDING [employer] [facility] Payers Date Payer Category Payer Medicare [id number] 2024 Self-pay [id number] 2023 Unknown [id number] 2023 Private Health Insurance [id number] 2016 Private Health Insurance [id number] 1950 Unknown [id number] 2.16.840.1.420084.3.579.2.62 7 1950 Unknown [id number] 2.16.840.1.656838.3.579.2.62 7 1950 Unknown [id number] 2.16.840.1.612042.3.579.2.62 7 1950 Unknown [id number] 2.16.840.1.335624.3.579.2.62 7 1950 Unknown [id number] 2.16.840.1.344716.3.579.2.62 7 1949 Unknown [id number] 2.16.840.1.026595.3.579.2.62 7 1949 Unknown [id number] 2.16.840.1.790979.3.579.2.62 7 1949 Unknown [id number] 2.16.840.1.894325.3.579.2.62 7 1949 Unknown [id number] 2.16.840.1.394483.3.579.2.62 7 1950 Unknown [id number] 2.16.840.1.124628.3.579.2.62 7 1950 Unknown [id number] 2.16.840.1.481384.3.579.2.62 7 1950 Unknown [id number] 2.16.840.1.586385.3.579.2.62 7 1950 Unknown [id number] 2.16.840.1.726143.3.579.2.62 7 1950 Unknown [id number] 2.16.840.1.852752.3.579.2.62 7 Private Health Insurance [facility] 18 [id number] Unknown [id number] 2.16.840.1.123199.3.579.2.46 2 Unknown [id number] 2.16.840.1.273229.3.579.2.46 2 Unknown [id number] 2.16.840.1.658783.3.579.2.46 2 Unknown [id number] 2.16.840.1.066339.3.579.2.46 2 Unknown [id number] 2.16.840.1.368743.3.579.2.46 2 Unknown [id number] 2.16.840.1.735206.3.579.2.46 2 Unknown [id number] 2.16.840.1.522608.3.579.2.46 2 Unknown [id number] 2.16.840.1.770870.3.579.2.46 2 Unknown [id number] 2.16.840.1.008147.3.579.2.46 2 Unknown [id number] 2.16.840.1.417986.3.579.2.46 2 Unknown [id number] 2.16.840.1.633665.3.579.2.46 2 Unknown [id number] 2.16.840.1.123388.3.579.2.46 2 Social History Date Type Detail Facility Start: 12-24-2018 Light tobacco smoker (finding) [facility] Start: 1950 Sex Assigned At Male A [facility] Start: 07-24-2021 End: 08-20-2024 Smokes tobacco daily (finding) [facility] Start: 09-06-2021 End: 07-17-2023 Tobacco smoking status MTIS Unknown if ever smoked [facility] Start: 03-29-2020 None [facility] Start: 08-10-2020 Pipe [facility] Start: 01-20-2024 Tobacco smoking status Occasional tobacco smoker (finding) [facility] Start: 08-24-2024 End: 09-06-2024 Sex Male (finding) [facility] Start: 11-29-2024 Tobacco smoking status NHIS Ex-smoker (finding) [facility] Medical Equipment Procedure Code Equipment Code Equipment Origin al Text Equipment Identifier Dates FDA Start: 02-10-2018 FDA Start: 02-10-2018 FDA Start: 02-10-2018 FDA Start: 02-10-2018 FDA Start: 02-10-2018 FDA Start: 02-10-2018 FDA Start: 02-10-2018 FDA Start: 02-10-2018 FDA Start: 02-10-2018 FDA Start: 02-10-2018 FDA Start: 02-10-2018 FDA Start: 02-10-2018 FDA Start: 02-10-2018 FDA Start: 02-10-2018 FDA Start: 02-10-2018 FDA Start: 02-10-2018 MONTEZ COTO FDA Start: 03-29-2020 MONTEZ COTO FDA Start: 03-29-2020 Unknown Unknown 02/10/18 Unknown Unknown FDA Start: 02-10-2018 FDA Start: 02-10-2018 FDA Start: 02-10-2018 FDA Start: 02-10-2018 Unknown Unknown 02/10/18 Unknown Unknown FDA Start: 02-10-2018 FDA Start: 02-10-2018 FDA Start: 02-10-2018 FDA Start: 02-10-2018 Unknown Unknown 9/18/18 Unknown Unknown FDA Start: 02-10-2018 FDA Start: 02-10-2018 FDA Start: 02-10-2018 FDA Start: 02-10-2018 Unknown Unknown 9/18/18 Unknown Unknown FDA Start: 02-10-2018 FDA Start: 02-10-2018 FDA Start: 02-10-2018 FDA Start: 02-10-2018 Unknown Unknown 9/18/18 Unknown Unknown FDA Start: 02-10-2018 FDA Start: 02-10-2018 FDA Start: 02-10-2018 FDA Start: 02-10-2018 MONTEZ COTO FDA Start: 03-29-2020 MONTEZ COTO FDA Start: 03-29-2020 Unknown Unknown 9/18/18 Unknown Unknown FDA Start: 02-10-2018 FDA Start: 02-10-2018 FDA Start: 02-10-2018 FDA Start: 02-10-2018 Unknown Unknown 9/18/18 Unknown Unknown FDA Start: 02-10-2018 FDA Start: 02-10-2018 FDA Start: 02-10-2018 FDA Start: 02-10-2018 Unknown Unknown 9/18/18 Unknown Unknown FDA Start: 02-10-2018 FDA Start: 02-10-2018 FDA Start: 02-10-2018 FDA Start: 02-10-2018 Unknown Unknown 9/18/18 Unknown Unknown FDA Start: 02-10-2018 FDA Start: 02-10-2018 FDA Start: 02-10-2018 FDA Start: 02-10-2018 Unknown Unknown 9/18/18 Unknown Unknown FDA Start: 02-10-2018 FDA Start: 02-10-2018 FDA Start: 02-10-2018 FDA Start: 02-10-2018 Unknown Unknown 9/18/18 Unknown Unknown FDA Start: 02-10-2018 FDA Start: 02-10-2018 FDA Start: 02-10-2018 FDA Start: 02-10-2018 Unknown Unknown 9/18/18 Unknown Unknown FDA Start: 02-10-2018 FDA Start: 02-10-2018 FDA Start: 02-10-2018 FDA Start: 02-10-2018 MONTEZ COTO FDA Start: 03-29-2020 MONTEZ COTO FDA Start: 03-29-2020 CLIP,MONTEZ WOODWARD FDA Start: 03-29-2020 CLIP,MONTEZ [place]WARD FDA Start: 03-29-2020 CLIP,MONTEZ [place] FDA Start: 03-29-2020 CLIP,MONTEZ [place] FDA Start: 03-29-2020 CLIP,MONTEZ [place] FDA Start: 03-29-2020 CLIP,MONTEZ [place] FDA Start: 03-29-2020 CLIP,MONTEZ [place] FDA Start: 03-29-2020 CLIP,MONTEZ [place] FDA Start: 03-29-2020 CLIP,MONTEZ [place] FDA Start: 03-29-2020 CLIP,MONTEZ [place] FDA Start: 03-29-2020 CLIP,MONTEZ [place] FDA Start: 03-29-2020 CLIP,MONTEZ [place]ODWARD FDA Start: 03-29-2020 Drug-eluting coronary artery stent, qev-[id number]-zv lymer-coated [id number] FDA Start: 11-29-2024 Goals Date Patient Goal Desired Activity /State Functional Status Date Assessment Result Facility 11-30-2024 Functional status Bedside Commode [facility] Work Phone: 07-15-2022 Functional Status Activity Statu s ADL Up to bathroom [facility] 07-15-2022 Functional Status Maintained, More than 8 hours [facility] Mental Status Date Assessment Result Facility 11-30-2024 Cognitive function Voice/Name [facility] on Medical Services Work Phone: 11-29-[address] [facility] Work Phone: 07-15-2022 Mental Status Orientation Oriented x 4 [facility] 07-15-2022 Mental Status [facility] Clinical Notes 06-21-2022 to 08-24-2024 Note Date & Type Note Facility 08-24-2024 Radiology Diagnostic study note [facility] Imaging Services [address] [place], [place] [address] [address] Chest PA and Lateral MR#: [id number] Acct: [id number] Name: ANGI JACKSON Rep #: [id number] : 1950 M 74 From: Angelique Saba MD PCP: PRAKASH Lanier Status: REG CLI Study:Chest PA and Lateral Date of Exam: 08/20/24 Exam# [id number] Ordering Dr: Maikel Liang EXAM: XR Chest, 2 Views CLINICAL INDICATION: SHORTNESS OF BREATH TECHNIQUE: Frontal and lateral views of the chest. COMPARISON: No relevant prior studies available. FINDINGS: LUNGS AND PLEURAL SPACES: See below. HEART: Cardiomegaly with mild congestion. MEDIASTINUM: Unremarkable. Normal mediastinal contour. BONES/JOINTS: Unremarkable. No acute fracture. RAD/Chest PA and Lateral IMPRESSION: Cardiomegaly with mild congestion. Reading [facility] CC: PRAKASH Harper; MAURO Ramos ~ Lay Out Maker: Signed [facility] 08-20-2024 Evaluation note Diagnosis Onset Date Resolution Chest pain acute August 20 10:02am CHF (congestive heart failure) acute August 20, 2024 10:02am Dyspnea acute August 20 10:02am Hypokalemia acute August 20, 025 10:02am PVCs (premature ventricular contractions) acute August 20, 2024 10:02am Atherosclerotic heart disease of [place] coronary artery without angina pectoris chronic August 20, 2024 10:02am Essential (primary) hypertension chronic August 20, 2024 10:02am Hyperlipidemia chronic July 10:02am Longstanding persistent atrial fibrillation chronic August 20, 2024 10:02am [facility] Work Phone: 1(741) 276-281003-28-2025 Evaluation note* Diagnosis Onset Date Resolution Status Admit Date Chest pain acute August 20 10:02am CHF (congestive heart failure) acute August 20, 2024 10:02am Dyspnea acute August 20 10:02am PVCs (premature ventricular contractions) acute August 20, 2024 10:02am 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 August 20, 2024 10:02am Essential (primary) hypertension chr onic August 20, 2024 10:02am Hyperlipidemia chronic July 10:02am Longstanding persistent atri al fibrillation chronic August 20, 2024 10:02am Hypokalemia resolved August 20, 2 025 10:02am Chest pain acute September 17 11:05am CHF (congestive heart failure) acute September 17, 2024 11:05am Dyspnea acute September 17 11:05am PVCs (premature ventricular contractions) acute September 17, 2024 11:05am 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 September 17, 2024 11:05am Essential (primary) hypertension chr onic September 17, 2024 11:05am Hyperlipidemia chronic August 11:05am Longstanding persistent atri al fibrillation chronic September 17, 2024 11:05am Hypokalemia resolved September 17, 025 11:05am [facility] Work Phone: 1(414) 920-254203-28-2025 Evaluation note* Diagnosis Onset Date Resolution Status Admit Date Chest pain acute August 20 10:02am CHF (congestive heart failure) acute August 20, 2024 10:02am Dyspnea acute August 20 10:02am PVCs (premature ventricular contractions) acute August 20, 2024 10:02am 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 August 20, 2024 10:02am Essential (primary) hypertension chr onic August 20, 2024 10:02am Hyperlipidemia chronic July 10:02am Longstanding persistent atri al fibrillation chronic August 20, 2024 10:02am Hypokalemia resolved August 20, 2 025 10:02am Chest pain acute September 17 11:05am CHF (congestive heart failure) acute September 17, 2024 11:05am Dyspnea acute September 17 11:05am PVCs (premature ventricular contractions) acute September 17, 2024 11:05am 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 September 17, 2024 11:05am Essential (primary) hypertension chr onic September 17, 2024 11:05am Hyperlipidemia chronic August 11:05am Longstanding persistent atri al fibrillation chronic September 17, 2024 11:05am Hypokalemia resolved September 17, 2 025 11:05am Chest pain acute November 05 11:09am CHF (congestive heart failure) acute November 05, 2024 11:09am Dyspnea acute November 05 11:09am PVCs (premature ventricular contractions) acute November 05, 2024 11:09am 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 November 05, 2024 11:09am Essential (primary) hypertension chr onic November 05, 2024 11:09am Hyperlipidemia chronic November 05, 2024 11:09am Longstanding persistent atri al fibrillation chronic November 05, 2024 11:09am Hypokalemia resolved November 05 11:09am [facility] [employer] Work Phone: 1(491) 180-608003-28-2025 Evaluation note* Diagnosis Onset Date Resolution Status Admit Date Chest pain acute August 20 10:02am CHF (congestive heart failure) acute August 20, 2024 10:02am Dyspnea acute August 20 10:02am PVCs (premature ventricular contractions) acute August 20, 2024 10:02am 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 August 20, 2024 10:02am Essential (primary) hypertension chr onic August 20, 2024 10:02am Hyperlipidemia chronic July 10:02am Longstanding persistent atri al fibrillation chronic August 20, 2024 10:02am Hypokalemia resolved August 20, 025 10:02am Chest pain acute September 17 11:05am CHF (congestive heart failure) acute September 17, 2024 11:05am Dyspnea acute September 17 11:05am PVCs (premature ventricular contractions) acute September 17, 2024 11:05am 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 September 17, 2024 11:05am Essential (primary) hypertension chr onic September 17, 2024 11:05am Hyperlipidemia chronic August 11:05am Longstanding persistent atri al fibrillation chronic September 17, 2024 11:05am Hypokalemia resolved September 17, 025 11:05am Chest pain acute November 05 11:09am CHF (congestive heart failure) acute November 05, 2024 11:09am Dyspnea acute November 05 11:09am PVCs (premature ventricular contractions) acute November 05, 2024 11:09am 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 November 05, 2024 11:09am Essential (primary) hypertension chr onic November 05, 2024 11:09am Hyperlipidemia chronic November 05, 2024 11:09am Longstanding persistent atri al fibrillation chronic November 05, 2024 11:09am Hypokalemia resolved November 05 11:09am CAD (coronary artery disease) acute November 29, 2024 9:18am Essential (primary) hypertension chr onic November 29, 2024 9:18am Hyperlipidemia chronic November 29, 2024 9:18am Longstanding persistent atri al fibrillation chronic November 29, 2024 9 :18am [facility] [employer] Work Phone: 1(860) 525-488704-06-2023 Note ORIGINAL EXAMINATION: GASTRIC EMPTYING STUDY08/29/2022 3:10 pm TECHNIQUE: The patient received an oral radiolabeled solid-phase meal utilizing 2.1 mCi of Tc-99m sulfur colloid in cooked egg. Sequential anterior and posterior images of the abdomen were then acquired over the next four hours. Computer quantification of gastric emptying (using geometric mean activity) was performed. COMPARISON: None HISTORY: ORDERING SYSTEM PROVIDED HISTORY: Reason for Exam: NAUSEA, WEIGHT LOSS FINDINGS: Sequential static images demonstrates radiotracer within the gastric lumen, slowly emptying into small bowel. Computer quantification demonstrates gastric retention as follows: >99 % at 0.5 hr (normal min 70%) 97 % at 1 hr (normal 30%-90%) 79 % at 2 hr (normal max 60%) 55 % at 3 hr (normal max 30%) 41 % at 4 hr (normal max 10%) IMPRESSION: Delayed gastric emptying of radiolabeled solid meal, suggestive of gastroparesis. Interpreted by: Romeo Oliveira DO Preliminary Report By: Romeo Oliveira DO Electronically signed By Romeo Oliveira DO Dictated Date: 08/29/2022 3:15:12 PM Prelim Date: 08/29/2022 3:17:37 PM Sign Date: 08/29/2022 3:17:37 PM Ordering Provider: PATO WEST [facility]04-06-2023 Note ORIGINAL EXAMINATION: GASTRIC EMPTYING STUDY08/29/2022 3:10 pm TECHNIQUE: The patient received an oral radiolabeled solid-phase meal utilizing 2.1 mCi of Tc-99m sulfur colloid in cooked egg. Sequential anterior and posterior images of the abdomen were then acquired over the next four hours. Computer quantification of gastric emptying (using geometric mean activity) was performed. COMPARISON: None HISTORY: ORDERING SYSTEM PROVIDED HISTORY: Reason for Exam: NAUSEA, WEIGHT LOSS FINDINGS: Sequential static images demonstrates radiotracer within the gastric lumen, slowly emptying into small bowel. Computer quantification demonstrates gastric retention as follows: >99 % at 0.5 hr (normal min 70%) 97 % at 1 hr (normal 30%-90%) 79 % at 2 hr (normal max 60%) 55 % at 3 hr (normal max 30%) 41 % at 4 hr (normal max 10%) IMPRESSION: Delayed gastric emptying of radiolabeled solid meal, suggestive of gastroparesis. Interpreted by: Romeo Oliveira DO Preliminary Report By: Romeo Oliveira DO Electronically signed By Romeo Oliveira DO Dictated Date: 08/29/2022 3:15:12 PM Prelim Date: 08/29/2022 3:17:37 PM Sign Date: 08/29/2022 3:17:37 PM [facility] Evaluation + Plan noteExtracted from: Title:Clinical Document Author:PATO WEST Date:07/15/22 ERWIN ADMISSION HISTORY AN D PHYSICIAL CHIEF COMPLAINT: HISTORY OF PRESENT ILLNESS: REVIEW OF SYSTEMS: ACTIVE PROBLEMS: (23) Alcoholism (42105233) Anxiety depression (472884304) Atrial fibrillation (94174393) Back pain (176908662) BPH - benign prostatic hyperplasia (6043850204) Catheter, device, per self; per urologist (2367304989) 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) Elevated liver enzymes (9691896352) Enlarged prostate (518277495) Erectile dysfunction (0034885444) GERD (gastroesophageal reflux disease) (918214142) Hepatitis (135056856) Hiatal hernia (367479703) Hyperlipidemia (59638929) Hypertension (88657746) Kidney stone (123780445) Lightheadedness (4308101022) Osteoarthritis (8417890971) Palpitations (584036097) 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 (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) Sleep apnea (844446340) Squamous cell carcinoma (07742806) Tobacco use (9924814094) MEDICATIONS: Active Inpt Meds: celecoxib (CeleBREX) Start: 08/26/17 6:00:00 EDT, Dose = 400 mg, = 2 cap(s), Oral, PREOP pharm, Stop: 08/26/17 23:59:00 EDT, 0 citric acid-sodium citrate (Bicitra) Start: 08/26/17 6:00:00 EDT, Dose = 30 mL, Soln, Oral, PREOP pharm, Stop: 08/26/17 23:59:00 EDT, 0 famotidine (Pepcid IV) Start: 08/26/17 6:00:00 EDT, Dose = 20 mg, = 2 mL, IV Push, PREOP pharm, Stop: 08/26/17 23:59:00 EDT, 0 morphine 5 mg + ropivacaine 200 mg + ketorolac 30 mg + EPINEPHrine 0.6 mg (Duramorph PF 1 mg/mL preservative-free injectable solution 5 mg + Naropin 200 mg + Toradol 30 mg +) Start: 08/26/17 6:00:00 EDT, Other, PREOP pharm, 18 hour(s), Stop: 08/26/17 23:59:00 EDT, mL/hr, Infuse over: 0 minute(s), 0 oxyCODONE (OxyCONTIN) Start: 08/26/17 6:00:00 EDT, Dose = 10 mg, = 1 tab(s), Oral, PREOP pharm, Stop: 08/26/17 23:59:00 EDT, 0 povidone iodine topical 08/26/17 6:00:00 EDT, Topical (INT), PREOP pharm, 18 hour(s), Hard Stop, Stop date 08/26/17 23:59:00 EDT tranexamic acid (Cyklokapron IVPB) Start: 08/26/17 6:00:00 EDT, Dose = 1,000 mg, = 10 mL, IV Piggyback, PREOP pharm, 18 hour(s), Stop: 08/26/17 23:59:00 EDT, Rate: 150 mL/hr, Infuse over: 20 minute(s), 0 tranexamic acid (Cyklokapron IVPB) Start: 08/26/17 6:00:00 EDT, Dose = 1,000 mg, = 10 mL, IV Piggyback, PREOP pharm, 18 hour(s), Stop: 08/26/17 23:59:00 EDT, Rate: 150 mL/hr, Infuse over: 20 minute(s), 0 Active PRN Meds: None One Time Meds: (Completed) lidocaine (Xylocaine 2% 5 mL syringe (ANES) (ANES)) IV Push, Once, Stop: 07/15/22 9:49:00 EST (Completed) propofol (propofol (ANES)) IV Push, Once, Stop: 07/15/22 9:49:00 EST Active IV Meds: Lactated Ringers Infusion 1,000 mL (LR 1,000 mL) Start: 07/15/22 8:12:00 EST, Rate: 50 mL/hr, 07/15/22 8:12:00 EST ALLERGIES: (4) codeine isosorbide mononitrate Neosporin Xarelto FAMILY HISTORY: SOCIAL HISTORY: PHYSICAL EXAM: VITALS: [id number](kg) 07/15 09:45----66--78.8--07/15 80.0 07/15 09:40----55------ 07/15 08:3436.5--[id number] 24 Hr Tmax: 36.5 at 07/15 08:34 36 Hr Tmax: 36.5 at 07/15 08:34 Vital Signs are the last 5 in the past 48 hours. Weights display the last 5 within 7 days. Initial Wt: 07/15 80.0 kg 176 lb Current Wt: 07/15 80.0 kg 176 lb GENERAL: HEENT: CARDIOVASCULAR: RESPIRATORY: ABDOMEN: EXREMETIES: NEUROLOGICAL: PSYCHIATRIC: LABS: No 36hr Lab Data DIAGNOSTICS: IMPRESSION: PLAN: History and Physical Update I have examined the patient; reviewed the H&P and there are no changes to the H&P unless noted below. Extracted from: Title:Clinical Document Author:PATO WEST Date:07/15/22 ERWIN ADMISSION HISTORY AN D PHYSICIAL CHIEF COMPLAINT: HISTORY OF PRESENT ILLNESS: REVIEW OF SYSTEMS: ACTIVE PROBLEMS: (23) Alcoholism (21216380) Anxiety depression (890338150) Atrial fibrillation (18576273) Back pain (298634059) BPH - benign prostatic hyperplasia (7481270468) Catheter, device, per self; per urologist (0700964823) COPD with chronic bronchitis (907055643) Elevated liver enzymes (2701118997) Enlarged prostate (021410286) Erectile dysfunction (9004315514) GERD (gastroesophageal reflux disease) (422469861) Hepatitis (120877712) Hiatal hernia (011371905) Hyperlipidemia (22758671) Hypertension (33384711) Kidney stone (313218221) Lightheadedness (2471000811) Osteoarthritis (5112248160) Palpitations (684403032) 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 (5916734418) Sleep apnea (287001134) Squamous cell carcinoma (30623211) Tobacco use ([id number]) MEDICATIONS: Active Inpt Meds: celecoxib (CeleBREX) Start: 08/26/17 6:00:00 EDT, Dose = 400 mg, = 2 cap(s), Oral, PREOP pharm, Stop: 08/26/17 23:59:00 EDT, 0 citric acid-sodium citrate (Bicitra) Start: 08/26/17 6:00:00 EDT, Dose = 30 mL, Soln, Oral, PREOP pharm, Stop: 08/26/17 23:59:00 EDT, 0 famotidine (Pepcid IV) Start: 08/26/17 6:00:00 EDT, Dose = 20 mg, = 2 mL, IV Push, PREOP pharm, Stop: 08/26/17 23:59:00 EDT, 0 morphine 5 mg + ropivacaine 200 mg + ketorolac 30 mg + EPINEPHrine 0.6 mg (Duramorph PF 1 mg/mL preservative-free injectable solution 5 mg + Naropin 200 mg + Toradol 30 mg +) Start: 08/26/17 6:00:00 EDT, Other, PREOP pharm, 18 hour(s), Stop: 08/26/17 23:59:00 EDT, mL/hr, Infuse over: 0 minute(s), 0 oxyCODONE (OxyCONTIN) Start: 08/26/17 6:00:00 EDT, Dose = 10 mg, = 1 tab(s), Oral, PREOP pharm, Stop: 08/26/17 23:59:00 EDT, 0 povidone iodine topical 08/26/17 6:00:00 EDT, Topical (INT), PREOP pharm, 18 hour(s), Hard Stop, Stop date 08/26/17 23:59:00 EDT tranexamic acid (Cyklokapron IVPB) Start: 08/26/17 6:00:00 EDT, Dose = 1,000 mg, = 10 mL, IV Piggyback, PREOP pharm, 18 hour(s), Stop: 08/26/17 23:59:00 EDT, Rate: 150 mL/hr, Infuse over: 20 minute(s), 0 tranexamic acid (Cyklokapron IVPB) Start: 08/26/17 6:00:00 EDT, Dose = 1,000 mg, = 10 mL, IV Piggyback, PREOP pharm, 18 hour(s), Stop: 08/26/17 23:59:00 EDT, Rate: 150 mL/hr, Infuse over: 20 minute(s), 0 Active PRN Meds: None One Time Meds: None Active IV Meds: Lactated Ringers Infusion 1,000 mL (LR 1,000 mL) Start: 07/15/22 8:12:00 EST, Rate: 50 mL/hr, 07/15/22 8:12:00 EST ALLERGIES: (4) codeine isosorbide mononitrate Neosporin Xarelto FAMILY HISTORY: SOCIAL HISTORY: PHYSICAL EXAM: VITALS: [id number](kg) 07/15 08:3436.5--[id number]/20 80.0 24 Hr Tmax: 36.5 at 07/15 08:34 36 Hr Tmax: 36.5 at 07/15 08:34 Vital Signs are the last 5 in the past 48 hours. Weights display the last 5 within 7 days. Initial Wt: 07/15 80.0 kg 176 lb Current Wt: 07/15 80.0 kg 176 lb GENERAL: HEENT: CARDIOVASCULAR: RESPIRATORY: ABDOMEN: EXREMETIES: NEUROLOGICAL: PSYCHIATRIC: LABS: No 36hr Lab Data DIAGNOSTICS: IMPRESSION: PLAN: History and Physical Update I have examined the patient; reviewed the H&P and there are no changes to the H&P unless noted below. Future Appointments Appointment Date:07/16/2022 10:00:00 AM Scheduled Provider:MARCOS HARPER Location:[facility] Appointment Type:PC Acute Appointment Date:07/17/2022 08:45:00 AM Scheduled Provider: Location:[facility] Appointment Type:ACC POC Established Patient Appointment Date:09/18/2022 11:30:00 AM Scheduled Provider:MARCOS HARPER Location:[facility] Appointment Type: OV Future Scheduled Tests Laboratory* Complete Blood Count 03/04/22 * Lipid Profile 03/04/22 * Complete Metabolic Panel 03/04/22 Radiology* XR Chest 2 Views (PA & Lateral) 07/24/21 [facility] 02-20-2023 Hospital Discharge instructions Patient Education 07/15/2022 10:00:49 Moderate Conscious Sedation, Adult, Care After Moderate Conscious Sedation, Adult, Care After These instructions provide you with information about caring for yourself after your procedure. Your health care provider may also give you more specific instructions. Your treatment has been plannedaccording to current medical practices, but problems sometimes occur. Call your health care provider if you have any problems or questions after your procedure. What can I expect after the procedure? After your procedure, it is common: To feel sleepy for several hours. To feel clumsy and have poor balance for several hours. To have poor judgment for several hours. To vomit if you eat too soon. Follow these instructions at home: For at least 24 hours after the procedure: Do not: ?Participate in activities where you could fall or become injured. ?Drive. ?Use heavy machinery. ?Drink alcohol. ?Take sleeping pills or medicines that cause drowsiness. ?Make important decisions or sign legal documents. ?Take care of children on your own. Rest. Eating and drinking Follow the diet recommended by your health care provider. If you vomit: ?Drink water, juice, or soup when you can drink without vomiting. ?Make sure you have little or no nausea before eating solid foods. General instructions Have a responsible adult stay with you until you are awake and alert. Take itez-qsm-ujtxbic and prescription medicines only as told by your health care provider. If you smoke, do not smoke without supervision. Keep all follow-up visits as told by your health care provider. This is important. Contact a health care provider if: You keep feeling nauseous or you keep vomiting. You feel light-headed. You develop a rash. You have a fever. Get help right away if: You have trouble breathing. This information is not intended to replace advice given to you by your health care provider. Make sure you discuss any questions you have with your health care provider. Document Released: 03/02/2014 Document Revised: 04/24/2018 Document Reviewed: 08/31/2016 [employer] Patient Education 2020 [employer]. 07/15/2022 10:00:44 Esophagogastroduodenoscopy, Care After (69097) Esophagogastroduodenoscopy, Care After Refer to this sheet in the next few weeks. These instructions provide you with information about caring for yourself after your procedure. Your health care provider may also give you more specific instructions. Your treatment has been planned according to current medical practices, but problems sometimes occur. Call your health care provider if you have any problems or questions after your procedure. What can I expect after the procedure? After the procedure, it is common to have: A sore throat. Nausea. Bloating. Dizziness. Fatigue. Follow these instructions at home: Do not eat or drink anything until the numbing medicine (local anesthetic) has worn off and your gag reflex has returned. You will know that the local anesthetic has worn off when you can swallow comfortably. Do not drive for 24 hours if you received a medicine to help you relax (sedative). If your health care provider took a tissue sample for testing during the procedure, make sure to get your test results. This is your responsibility. Ask your health care provider or the department performing the test when your results will be ready. Keep all follow-up visits as told by your health care provider. This is important. Contact a health care provider if: You cannot stop coughing. You are not urinating. You are urinating less than usual. Get help right away if: You have trouble swallowing. You cannot eat or drink. You have throat or chest pain that gets worse. You are dizzy or light-headed. You faint. You have nausea or vomiting. You have chills. You have a fever. You have severe abdominal pain. You have black, tarry, or bloody stools. This information is not intended to replace advice given to you by your health care provider. Make sure you discuss any questions you have with your health care provider. Document Released: 04/28/2013 Document Revised: 10/17/2016 Document Reviewed: 04/04/2016 [employer] Interactive Patient Education 2019 [employer]. Follow Up Care 06/25/2022 13:39:48 With:PATO WEST MD Address: [address] [facility] [address] [place] [phone] When: Unknown Comments:Follow up as direct [facility] 02-20-2023 Summary of episode note Discharge Instructions Thank you for allowing [facility] to assist you with your healthcare needs. The following is importantdischarge information regarding your hospital visit. Your Care Team MARCOS HARPER What to do next Scheduled Follow-Up Appointments Appointment Type When With Where Contact InformationACC POC Established Patient 07/17/2022 08:45 AMEST [facility] OV 09/18/2022 11:30 AM EDT MARCOS HARPER [address] [id number] Follow Up Appointments Follow Up with PATO WEST MD When Why: Follow up as direct Where: [address] [facility] [place] [address] [phone] The Following Activity and Diet Have Been Ordered for You No qualifying data available. No qualifying data available. The Following Equipment Has Been Ordered for You No qualifying data available. The Following Treatments Have Been Ordered for You Discharge Labs No qualifying data available. Discharge Radiology No qualifying data available. Other Therapies No qualifying data available. Post Acute Orders No qualifying data available. Someone Will Contact You Regarding These Home Health Referrals No home referrals have been ordered for you. No one will call you. Allergies Neosporin (UNSURE) Xarelto (BLEEDING) codeine (DIFFICULTY BREATHING) isosorbide mononitrate (Irregular heart beat, Headache) Medications Please ask your primary doctor or pharmacist before taking any other medication not listed, including over the counter drugs, herbal medications, vitamins and or supplements as they may interact withyour home medications. What How Much When Why Instructions Last Dose Unchanged amLODIPine (amLODIPine 10 mg oral tablet) 1 tab(s) by mouth Once a day Duration: 90 Days Unchanged ammonium lactate topical (ammonium lactate 12% topical cream) 1 application Topical Two (2) times a day Duration: 14 Days Unchanged baclofen (baclofen 10 mg oral tablet) 1 tab(s) by mouth Two (2) times a day Muscle spasm Unchanged buPROPion (BuPROPion (Eqv-Wellbutrin SR) 150 mg/ 12 hours oral tablet, extended release) 1 tab(s) by mouth Two (2) times a day Unchanged DULoxetine (DULoxetine 60 mg oral delayed release capsule) 1 cap by mouth Once a day Duration: 90 Days Unchanged fexofenadine ([place] 24 Hour Allergy oral tablet) 1 tab(s) by mouth Every day Unchanged fluticasone/ umeclidinium/ vilanterol (Trelegy Ellipta 100 mcg-62.5 mcg-25 mcg/ inh inhalation powder) 1 puff(s) by inhalation Once a day Duration: 30 Days at the same time every day. Following administration, rinse mouth with water after use (do not swallow). Unchanged furosemide (furosemide 40 mg oral tablet) 1 tab(s) by mouth Once a day Unchanged gabapentin (gabapentin 300 mg oral capsule) 1 cap by mouth Daily at bedtime Neuropathic pain Duration: 90 Days Unchanged lisinopril (lisinopril 20 mg oral tablet) 1 tab(s) by mouth Daily at bedtime Duration: 90 Days Unchanged magnesium oxide (magnesium oxide 400 mg oral tablet) 1 tab(s) by mouth Once a day Duration: 90 Days Unchanged metoprolol (Metoprolol Tartrate 50 mg oral tablet) 2 tab(s) by mouth Daily at bedtime Unchanged montelukast (montelukast 10 mg oral tablet) 1 tab(s) by mouth Once a day Unchanged multivitamin with minerals (Centrum Silver oral tablet) 1 tab(s) by mouth Once a day Unchanged omeprazole (omeprazole 40 mg oral delayed release capsule) 1 cap by mouth Two (2) times a day GERD (gastroesophageal reflux disease) Duration: 90 Days Unchanged pravastatin (pravastatin 20 mg oral tablet) See instructions TAKE 1 TABLET AT BEDTIME Unchanged warfarin (warfarin 2 mg oral tablet) 1 tab(s) by mouth Once a day on FRIDAY takes 1.5 mg Please take this list to your next doctor s visit. Bring all medications you take, including over the counter medications, herbals and other supplements with you to your doctor s visit. Patients and families are reminded to discard old lists and to update any records with all medication providers or retail pharmacies. Education Materials Moderate Conscious Sedation, Adult, Care After These instructions provide you with information about caring for yourself after your procedure. Your health care provider may also give you more specific instructions. Your treatment has been plannedaccording to current medical practices, but problems sometimes occur. Call your health care provider if you have any problems or questions after your procedure. What can I expect after the procedure? After your procedure, it is common: To feel sleepy for several hours. To feel clumsy and have poor balance for several hours. To have poor judgment for several hours. To vomit if you eat too soon. Follow these instructions at home: For at least 24 hours after the procedure: Do not: ? Participate in activities where you could fall or become injured. ? Drive. ? Use heavy machinery. ? Drink alcohol. ? Take sleeping pills or medicines that cause drowsiness. ? Make important decisions or sign legal documents. ? Take care of children on your own. Rest. Eating and drinking Follow the diet recommended by your health care provider. If you vomit: ? Drink water, juice, or soup when you can drink without vomiting. ? Make sure you have little or no nausea before eating solid foods. General instructions Have a responsible adult stay with you until you are awake and alert. Take squg-zun-inqfmfj and prescription medicines only as told by your health care provider. If you smoke, do not smoke without supervision. Keep all follow-up visits as told by your health care provider. This is important. Contact a health care provider if: You keep feeling nauseous or you keep vomiting. You feel light-headed. You develop a rash. You have a fever. Get help right away if: You have trouble breathing. This information is not intended to replace advice given to you by your health care provider. Make sure you discuss any questions you have with your health care provider. Document Released: 03/02/2014 Document Revised: 04/24/2018 Document Reviewed: 08/31/2016 [employer] Patient Education 2020 [employer]. Esophagogastroduodenoscopy, Care After Refer to this sheet in the next few weeks. These instructions provide you with information about caring for yourself after your procedure. Your health care provider may also give you more specific instructions. Your treatment has been planned according to current medical practices, but problems sometimes occur. Call your health care provider if you have any problems or questions after your procedure. What can I expect after the procedure? After the procedure, it is common to have: A sore throat. Nausea. Bloating. Dizziness. Fatigue. Follow these instructions at home: Do not eat or drink anything until the numbing medicine (local anesthetic) has worn off and your gag reflex has returned. You will know that the local anesthetic has worn off when you can swallow comfortably. Do not drive for 24 hours if you received a medicine to help you relax (sedative). If your health care provider took a tissue sample for testing during the procedure, make sure to get your test results. This is your responsibility. Ask your health care provider or the department performing the test when your results will be ready. Keep all follow-up visits as told by your health care provider. This is important. Contact a health care provider if: You cannot stop coughing. You are not urinating. You are urinating less than usual. Get help right away if: You have trouble swallowing. You cannot eat or drink. You have throat or chest pain that gets worse. You are dizzy or light-headed. You faint. You have nausea or vomiting. You have chills. You have a fever. You have severe abdominal pain. You have black, tarry, or bloody stools. This information is not intended to replace advice given to you by your health care provider. Make sure you discuss any questions you have with your health care provider. Document Released: 04/28/2013 Document Revised: 10/17/2016 Document Reviewed: 04/04/2016 [employer] Interactive Patient Education 2019 [employer]. Additional Information VACCINATE! IT SAVES LIVES! Members of the community who have not yet received the COVID-19 vaccine and would like to receive it can visit one of [facility] vaccine clinics. There are many vaccine clinic locations within the [facility]. For locations and available times, please visit [email or web address] It is important to note that some COVID mobile vaccine clinics are held outdoors and may be canceled in rainy or stormy conditions. To learn more about pediatric vaccinations (ages 5-11), we invite you to visit the [facility] webpage. [email or web address]/[email or web address] learn more about the COVID-19 vaccine, we invite you to visit the CDC website for a list of frequently asked questions. https://www.cdc.gov/coronavirus/2019-ncov/vaccines/faq.html [employer] Patient Portal Access Instructions: Stay connected with your healthcare team and access your personal medical information anytime with the [facility] Patient Portal.If you would like a full copy of your medical records, please contact the [facility] Medical Records Department, Friday through Friday between 8a.m. and 4:30p.m. Please follow the directions below to access the portal: 1.Access the email account you provided upon registration to the hospital.2.Look for an invitation email from [facility].3.Open the email and access the invitation link: Accept Invitation to [facility].Fill in the required vaca to create your account. Sign into [email or web address] with your username and password that you created in the above steps to stay up to date. You can then view a summary of results, a summary of your visits, and the ability to download your summaries to your computer or send the information securely to a physician. Remember that your healthcare information is confidential, so carefully consider who you will allow to register on the [facility] Patient Portal for access to your information. You can also access the [facility] Patient Portal on the [employer]. Simply click on Health Records under [employer] and then click on the [employer] logo. HOW TO SAFELY DISPOSE OF PRESCRIPTION MEDICATIONS Please use one of the following methods to safely dispose of your unused medications. 1.Use a drug disposal kit: the drug disposal pouch allows you to safely discard your old and unuseddrugs. Ask your nurse to give you one when you are discharged.2.Visit a local take-back location: Many local pharmacies and police departments have programs that collect old and unwanted prescriptiondrugs. Call your local pharmacy or go to http://[email or web address]/8V8Uo2u to find one close to you.3.Make use of household items: Use cat litter or old coffee grounds to dispose medications if other options arenot available. Mix your drugs with these household products, seal them in an airtight container andthrow it into the garbage. Call [facility]: [phone] to be sure your drugs can be disposed of in this way. Some medicines may require a different approach.4.Never flush your medications down the toilet. IF YOU HAVE BEEN PRESCRIBED AN OPIOID FOR PAIN If you have been prescribed an opioid (such as hydrocodone, oxycodone or morphine), it is critical to understand the possible side effects and risks of opioid pain medications. Even when taken as directed, opioids can have several side effects including: Tolerance, meaning you might need to take more of a medication for the same pain relief. Nausea, vomiting and/or constipation. Sleepiness, dizziness, dry mouth, confusion, depression or itching. Physical dependence, meaning you have withdrawal symptoms when a medication is stopped, can develop within a few days. KNOW YOUR RESPONSIBILITIES It is important to know exactly how much and how often to take the opioid pain medications you are prescribed. Never take opioids in higher amounts or more often than prescribed. Do not combine opioids with alcohol or other drugs that cause drowsiness, such as benzodiazepines, also known as benzos, including diazepam and alprazolam, muscle relaxants or sleep aids. Never sell or share prescription opioids. This is illegal. Store opioids in a secure place and out of reach of others (including children, family, friends and visitors). The last page of this document has been signed and retained as a CHART COPY. Signatures Patient Education Materials Moderate Conscious Sedation, Adult, Care After Esophagogastroduodenoscopy, Care After (12279) Medication Leaflets My discharge plan and instructions have been reviewed and explained to me and IRENETTA JEPTHA B understand my current condition and have read and understand these discharge instructions. I have received a written copy of the plan/instructions. If I have questions, I am aware that I should contact my doctor. 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) Elevated liver enzymes (9197225156) Enlarged prostate (445989394) Erectile dysfunction (5645035866) GERD (gastroesophageal reflux disease) (080545001) Hepatitis (644522479) Hiatal hernia (211971694) Hyperlipidemia (09112056) Hypertension (03878469) Kidney stone (498766424) Lightheadedness (2363811102) Osteoarthritis (7732487892) Palpitations (477328657) 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 (2812226373) Sleep apnea (063995018) Squamous cell carcinoma (25126585) Tobacco use (3481117919) MEDICATIONS: Active Inpt Meds: celecoxib (CeleBREX) Start: 08/26/17 6:00:00 EDT, Dose = 400 mg, = 2 cap(s), Oral, PREOP pharm, Stop: 08/26/17 23:59:00 EDT, 0 citric acid-sodium citrate (Bicitra) Start: 08/26/17 6:00:00 EDT, Dose = 30 mL, Soln, Oral, PREOP pharm, Stop: 08/26/17 23:59:00 EDT, 0 famotidine (Pepcid IV) Start: 08/26/17 6:00:00 EDT, Dose = 20 mg, = 2 mL, IV Push, PREOP pharm, Stop: 08/26/17 23:59:00 EDT, 0 morphine 5 mg + ropivacaine 200 mg + ketorolac 30 mg + EPINEPHrine 0.6 mg (Duramorph PF 1 mg/mL preservative-free injectable solution 5 mg + Naropin 200 mg + Toradol 30 mg +) Start: 08/26/17 6:00:00 EDT, Other, PREOP pharm, 18 hour(s), Stop: 08/26/17 23:59:00 EDT, mL/hr, Infuse over: 0 minute(s), 0 oxyCODONE (OxyCONTIN) Start: 08/26/17 6:00:00 EDT, Dose = 10 mg, = 1 tab(s), Oral, PREOP pharm, Stop: 08/26/17 23:59:00 EDT, 0 povidone iodine topical 08/26/17 6:00:00 EDT, Topical (INT), PREOP pharm, 18 hour(s), Hard Stop, Stop date 08/26/17 23:59:00 EDT tranexamic acid (Cyklokapron IVPB) Start: 08/26/17 6:00:00 EDT, Dose = 1,000 mg, = 10 mL, IV Piggyback, PREOP pharm, 18 hour(s), Stop: 08/26/17 23:59:00 EDT, Rate: 150 mL/hr, Infuse over: 20 minute(s), 0 tranexamic acid (Cyklokapron IVPB) Start: 08/26/17 6:00:00 EDT, Dose = 1,000 mg, = 10 mL, IV Piggyback, PREOP pharm, 18 hour(s), Stop: 08/26/17 23:59:00 EDT, Rate: 150 mL/hr, Infuse over: 20 minute(s), 0 Active PRN Meds: None One Time Meds: (Completed) lidocaine (Xylocaine 2% 5 mL syringe (ANES) (ANES)) IV Push, Once, Stop: 07/15/22 9:49:00 EST (Completed) propofol (propofol (ANES)) IV Push, Once, Stop: 07/15/22 9:49:00 EST Active IV Meds: Lactated Ringers Infusion 1,000 mL (LR 1,000 mL) Start: 07/15/22 8:12:00 EST, Rate: 50 mL/hr, 07/15/22 8:12:00 EST ALLERGIES: (4) codeine isosorbide mononitrate Neosporin Xarelto FAMILY HISTORY: SOCIAL HISTORY: PHYSICAL EXAM: VITALS: [id number]1GaicTo(kg) 07/15 09:45----66--78.8--07/15 80.0 07/15 09:40----55------ 07/15 08:3436.5--[id number] 24 Hr Tmax: 36.5 at 07/15 08:34 36 Hr Tmax: 36.5 at 07/15 08:34 Vital Signs are the last 5 in the past 48 hours. Weights display the last 5 within 7 days. Initial Wt: 07/15 80.0 kg 176 lb Current Wt: 07/15 80.0 kg 176 lb GENERAL: HEENT: CARDIOVASCULAR: RESPIRATORY: ABDOMEN: EXREMETIES: NEUROLOGICAL: PSYCHIATRIC: LABS: No 36hr Lab Data DIAGNOSTICS: IMPRESSION: PLAN: History and Physical Update I have examined the patient; reviewed the H&P and there are no changes to the H&P unless noted below. Digitally Signed by PATO WEST MD on 07/15/2022 09:51 AM [facility]02-20-2023 Anesthesiology Consult note Patient: ANGI JACKSON Age: 72 years Sex: Male : 1950 Associated Diagnoses: None Author: PRIYA ETIENNE APRN-COMMERCIAL BAKING TEACHER Assessment Postanesthesia assessment Vitals: Vital signs from flowsheet : Vital Signs 07/15/2022 9:45 EST Heart Rate Monitored 66 bpm bpm Respiratory Rate - Anes 22 br/min br/min Systolic Blood Pressure Non-Invasive 147 mmHg mmHg Diastolic Blood Pressure Non-Invasive 94 mmHg mmHg 07/15/2022 9:41 EST Systolic Blood Pressure Non-Invasive 156 mmHg mmHg Diastolic Blood Pressure Non-Invasive 91 mmHg mmHg 07/15/2022 9:40 EST Heart Rate Monitored 55 bpm bpm Respiratory Rate - Anes 14 br/min br/min 07/15/2022 8:34 EST Temperature Temporal Artery 36.5 DegC Apical Heart Rate 61 bpm Respiratory Rate 17 br/min Systolic Blood Pressure Non-Invasive 154 mmHg HI Diastolic Blood Pressure Non-Invasive 87 mmHg , Measurements from flowsheet . Mental status: alert & oriented x 4. Respiratory function: respirations are non-labored. Respiratory support: none. CV function: Normal rate. Cardiovascular support: none. Pain. Nausea status: see nursing documentation of medications. Postoperative hydration status: within normal limits. Digitally Signed by PRIYA ETIENNE on 07/15/2022 09:51 AM [facility]02-20-2023 Anesthesiology Consult note Patient: ANGI JACKSON Age: 72 years Sex: Male : 1950 Associated Diagnoses: None Author: PRIYA ETIENNE Preoperative Information Time of last food or liquid consumption: 07/15/2022 00:00:00 Anesthesia history Patient's history: negative. Family's history: negative. Health Status Allergies: Allergic Reactions (Selected) Severity Not Documented Codeine- Difficulty breathing. Isosorbide mononitrate- Headache and irregular heart beat. Neosporin- Unsure. Xarelto- Bleeding., Allergies (4) ActiveReaction codeineDIFFICULTY BREATHING isosorbide mononitrateIrregular heart beat NeosporinUNSURE XareltoBLEEDING Current medications: (Selected) Inpatient Medications Ordered Bicitra: 30 mL, Oral, PREOP pharm CeleBREX: 400 mg, 2 cap(s), Oral, PREOP pharm Cyklokapron IVPB: 1,000 mg, 10 mL, 150 mL/hr, IV Piggyback, PREOP pharm Cyklokapron IVPB: 1,000 mg, 10 mL, 150 mL/hr, IV Piggyback, PREOP pharm Duramorph PF 1 mg/mL preservative-free injectable solution 5 mg + Naropin 200 mg + Toradol 30 mg +...: 5 mg, 5 mL, mL/hr, Other, PREOP pharm LR 1,000 mL: 50 mL/hr, Intravenous OxyCONTIN: 10 mg, 1 tab(s), Oral, PREOP pharm Pepcid IV: 20 mg, 2 mL, IV Push, PREOP pharm povidone iodine topical: mL/hr, Topical (INT), PREOP pharm Prescriptions Prescribed [place] 24 Hour Allergy oral tablet: 180 mg, 1 tab(s), Oral, Daily, 30 tab(s), 0 Refill(s) DULoxetine 60 mg oral delayed release capsule: 60 mg, 1 cap(s), Oral, qDay, for 90 day(s), 90 cap(s), 3 Refill(s) Trelegy Ellipta 100 mcg-62.5 mcg-25 mcg/inh inhalation powder: 1 puff(s), Inhalation, qDay, for 30 day(s), at the same time every day. Following administration, rinse mouth with water after use (do not swallow)., 1 EA, 3 Refill(s) amLODIPine 10 mg oral tablet: 10 mg, 1 tab(s), Oral, qDay, for 90 day(s), 90 tab(s), 1 Refill(s) ammonium lactate 12% topical cream: 1 herb, Topical, BID, for 14 day(s), 385 gram(s), 3 Refill(s) baclofen 10 mg oral tablet: 10 mg, 1 tab(s), Oral, BID, 180 tab(s), 0 Refill(s) gabapentin 300 mg oral capsule: 300 mg, 1 cap(s), Oral, qHS, for 90 day(s), 90 cap(s), 0 Refill(s) lisinopril 20 mg oral tablet: 20 mg, 1 tab(s), Oral, qHS, for 90 day(s), 90 tab(s), 0 Refill(s) magnesium oxide 400 mg oral tablet: 400 mg, 1 tab(s), Oral, qDay, for 90 day(s), 90 tab(s), 3 Refill(s) montelukast 10 mg oral tablet: 10 mg, 1 tab(s), Oral, qDay, 90 tab(s), 3 Refill(s) omeprazole 40 mg oral delayed release capsule: 40 mg, 1 cap(s), Oral, BID, for 90 day(s), 180 cap(s), 3 Refill(s) pravastatin 20 mg oral tablet: See Instructions, TAKE 1 TABLET AT BEDTIME, 90 tab(s), 3 Refill(s) Documented Medications Documented BuPROPion (Eqv-Wellbutrin SR) 150 mg/12 hours oral tablet, extended release: 150 mg, 1 tab(s), Oral, BID, 0 Refill(s) Centrum Silver oral tablet: 1 tab(s), Oral, qDay, 30 tab(s), 0 Refill(s) Metoprolol Tartrate 50 mg oral tablet: 100 mg, 2 tab(s), Oral, qHS, 0 Refill(s) furosemide 40 mg oral tablet: 40 mg, 1 tab(s), Oral, qDay, 0 Refill(s) warfarin 2 mg oral tablet: 2 mg, 1 tab(s), Oral, qDay, on FRIDAY takes 1.5 mg, 0 Refill(s), Medications (1) Active Scheduled: (0) Continuous: (1) Lactated Ringers Infusion 1,000 mL 1,000 mL, Intravenous, 50 mL/hr PRN: (0) Problem list: Medical Alcoholism / SNOMED CT 81009914 / Confirmed Anxiety depression / SNOMED CT 957809148 / Confirmed Atrial fibrillation / SNOMED CT 52622593 / Confirmed Back pain / SNOMED CT 031666900 / Confirmed BPH - benign prostatic hyperplasia / SNOMED CT 3748039442 / Confirmed Catheter, device, per self; per urologist / SNOMED CT 9498600898 / Confirmed Elevated liver enzymes / SNOMED CT 4588817068 / Confirmed COPD with chronic bronchitis / SNOMED CT 533111146 / Confirmed Erectile dysfunction / SNOMED CT 4130038287 / Confirmed GERD (gastroesophageal reflux disease) / SNOMED CT 063247315 / Confirmed Hiatal hernia / SNOMED CT 689307714 / Confirmed Hyperlipidemia / SNOMED CT 16466069 / Confirmed Hypertension / SNOMED CT 02971922 / Confirmed Hepatitis / SNOMED CT 662088741 / Confirmed Kidney stone / SNOMED CT 252154221 / Confirmed Enlarged prostate / SNOMED CT 894060977 / Confirmed Lightheadedness / SNOMED CT 5989855780 / Confirmed Osteoarthritis / SNOMED CT 2943252201 / Confirmed Palpitations / SNOMED CT 893654104 / Confirmed 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 / SNOMED CT 5811449288 / Confirmed Sleep apnea / SNOMED CT 637609168 / Confirmed Squamous cell carcinoma / SNOMED CT 49660678 / Confirmed, Active Problems (23) Alcoholism Anxiety depression Atrial fibrillation Back pain BPH - benign prostatic hyperplasia Catheter, device, per self; per urologist COPD with chronic bronchitis Elevated liver enzymes Enlarged prostate Erectile dysfunction GERD (gastroesophageal reflux disease) Hepatitis Hiatal hernia Hyperlipidemia Hypertension Kidney stone Lightheadedness Osteoarthritis Palpitations 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 Sleep apnea Squamous cell carcinoma Tobacco use Histories Past Medical History: Active Hypertension (56851731) Sleep apnea (552409959) Comments: 08/18/2017 EDT 13:48 Khaliad Gallo RN HAS CPAP, DOES NOT USE GERD (gastroesophageal reflux disease) (603703343) Hiatal hernia (453869691) Hepatitis (876790745) Comments: 08/18/2017 EDT 13:51 Khalida Gallo RN PT UNSURE WHICH TYPE Kidney stone (648819271) Comments: 08/18/2017 EDT 13:52 Khalida Gallo RN HISTORY OF Enlarged prostate (402535938) Osteoarthritis (1364719571) Family History: Cancer Brother Comments: 12/24/2018 12:02 Charu Boogie CMA prostate Rheumatoid arthritis Daughter Hypothyroidism Daughter Alcohol abuse Father Stroke Father Cancer Mother Heart disease Father Brother Procedure history: Arthroplasty of the hip (942749971) on 02/10/2018 at 67 Years. Comments: 02/10/2018 9:50 Cristina Johns RN RIGHT ANTERIOR HIP REPLACEMENT Total replacement of left hip joint ([id number]) on 08/26/2017 at 67 Years. Cholecystectomy (24960273). Comments: 08/18/2017 13:52 DANIELE Gallo Colonoscopy (335693260). Dilation of urethra (65262679). Cataract (888671130). Comments: 02/10/2018 5:49 DANIELE Gallo REBECCA Tonsillectomy (582669308). Social History Social & Psychosocial Habits Alcohol 08/18/2017Risk Assessment: Denies Alcohol Use 02/19/2021 Use: Never Substance Abuse 02/10/2018Risk Assessment: Low Risk 12/24/2018 Use: Current Type: Marijuana Tobacco 07/24/2021 Tobacco Use: 5-9 cigarettes (between 1 Type: Cigarettes 07/24/2021 Tobacco Use: Cigars or pipes daily wit Type: Pipe Nutrition/Health 06/20/2022 Type of diet: Regular Appetite Good Eating Difficulties None, Swallowing, have a swallowing test 06/21/22 Caffeine intake amount: coffee, 4 servings daily-some mornings none . Physical Examination Vital Signs 07/15/2022 8:34 EST Temperature Temporal Artery 36.5 DegC Apical Heart Rate 61 bpm Respiratory Rate 17 br/min Systolic Blood Pressure Non-Invasive 154 mmHg HI Diastolic Blood Pressure Non-Invasive 87 mmHg Vital Signs(last 24 hrs) Last Charted Resp Rate 17 br/min (JUL 15 08:34) SBPH 154mmHg (JUL 15 08:34) DBP87 mmHg (JUL 15 08:34) BMI24.61 (JUL 15 08:34) Measurements from flowsheet : Measurements 07/15/2022 8:34 EST Height 180.3 cm Admission Weight 80 kg Weight Method Stated [place] Body Weight 75.26 kg BSA Admission 2 Body Mass Index 24.61 kg/m2 Pain assessment: Pain Assessment 07/15/2022 8:34 EST Primary Pain Intensity 4 Pain Scale Type 0-10 Pain scale . General: Alert and oriented. Airway: Normal temporomandibular joint mobility, Normal mouth. Mallampati classification: III (soft palate, base of uvula visible). Dentition Evaluation: No teeth. Respiratory: Respirations are non-labored. Neurologic: Alert, Oriented. Review / Management Results review: No qualifying data available , Lab results 07/15/2022 9:39 EST [place] History and Physical 07/15/2022 9:38 EST SN - PP - Body Position Lateral Right Side-up Standard Intra-op 07/15/2022 9:38 EST SN - Proc - Anesthesia Type MAC SN - Proc - EBL 0 mL SN - Proc - Actual Procedure SOPHAGOGASTRODUODENOSCOPY WITH POSSIBLE DILATION 07/15/2022 9:37 EST SN - GCD - ASA Class 3 SN - GCD - Case Level OPD Level 3 07/15/2022 9:37 EST SN - Cul - Culture Type Tissue in Formalin SN - Cul - Kind Specimen 07/15/2022 9:37 EST SN - CAt - Case Attendee SN - CAt - Case Attendee SN - CAt - Case Attendee SN - CAt - Case Attendee SN - CAt - Case Attendee SN - CAt - Case Attendee SN - CAt - Case Attendee SN - CAt - Case Attendee SN - CAt - Role Performed Primary Surgeon SN - CAt - Role Performed COMMERCIAL BAKING TEACHER SN - CAt - Role Performed Child Care Aide SN - CAt - Role Performed Historical Manuscripts Curator 1 07/15/2022 9:04 EST Progress Note-Nurse PRE-OP 07/15/2022 8:48 EST Lactated Ringers Injection Begin Bag 1,000 mL mL 07/15/2022 8:47 EST Forearm Right 07/15/2022 22 gauge Peripheral IV Activity: Insert new site Peripheral IV Dressing Condition: Clean, Dry, Intact Peripheral IV Dressing Activity: Applied, Transparent dressing Peripheral IV Line Status/Patency: Flushes easily Peripheral IV Line Care: Secured with tape Peripheral IV Site Condition: No complications Peripheral IV Equipment: Extension set Peripheral IV Number of Attempts: 1 07/15/2022 8:34 EST Designated Person #1 We May Share VERN Bonds-[phone] Designated Person #1 Relationship Daughter Designated Person #2 We May Share PHI Matteo Bonds Designated Person #2 Relationship Other: son-in-law Height 180.3 cm Admission Weight 80 kg Weight Method Stated [place] Body Weight 75.26 kg BSA Admission 2 Body Mass Index 24.61 kg/m2 Temperature Temporal Artery 36.5 DegC Apical Heart Rate 61 bpm Respiratory Rate 17 br/min Systolic Blood Pressure Non-Invasive 154 mmHg HI Diastolic Blood Pressure Non-Invasive 87 mmHg Primary Pain Intensity 4 Pain Scale Type 0-10 Pain scale Oxygen Therapy Room air Oxygen Saturation 100 % Bowel Sounds All Quadrants Present Status N/A Skin Description [place], Normal for ethnicity Skin Integrity Intact IV Present Present Characteristics of Speech Clear Level of Consciousness Alert Affect/Behavior Appropriate Orientation Oriented x 4 Sensory Deficits Hearing deficit, left ear, Hearing deficit, right ear Infectious Disease Symptoms Patient states no symptoms Infectious Disease Recent Exposure No Alcohol and Drug Use No Employee of Institutional Living No Health Care Employee No History of Exposure to TB No History of Positive Chest X-Ray for TB No History of Positive TB Skin Test No Homeless No Known Immunosuppression No Recent Immigrant No Resident of Institutional Living No Bloody Sputum No Fatigue No Fever No Loss of Appetite No Night Sweats No Persistent Cough > 3 Weeks No Weight Loss No Allergies Yes Game Trapper On Yes Consent Form Signed Yes Patient Dressed In Hospital gown Pre-op Preparation Glasses removed History & Physical Update On Chart Yes History & Physical On Chart Yes Obstructive Sleep Apnea Assess Completed Yes Barriers to Learning None evident Teaching Method Explanation Preferred Written Language Bel[place]an Preferred Spoken Language [place] Information Given by Patient Patient's Current Physicians Patient's Current Physicians Discharge To, Anticipated Home with family care Activity Status ADL Awake, Repositions self NPO Status Maintained, More than 8 hours Standard Safety ID band on, Allergy Band on, Call device within reach, Bed in low position, Wheels locked, Safety level maintained Prev Test Positive/Diagnosis w/COVID-19 No Current Quarantine/Isolated any Illness No Any Contact with Sick Animals/Birds No Traveled Anywhere in Last 30 Days No Allergy Band on and Verified Yes Patient ID Band on and Verified Yes Implants Verified Yes Pacemaker/AICD Verified No Anesthesia Consent Signed Yes Last Fluid Intake 07/15/2022 1:00 Last Food Intake 07/14/2022 12:00 Last Void 07/15/2022 8:00 N/A Personal Devices, Patient Valuables Glasses Admission Note-Nursing Procedure/Therapy Intake . Assessment and Plan [place] [employer]hesi[employer] (ASA) physical status classification: Class III. Anesthetic Preoperative Plan Anesthetic technique: MAC. Informed consent: signed by patient. Digitally Signed by PRIYA ETIENNE on 07/15/2022 09:43 AM [facility]02-20-2023 Note ERWIN ADMISSION HISTORY AND PHYSICIAL CHIEF COMPLAINT: HISTORY OF PRESENT ILLNESS: REVIEW OF SYSTEMS: ACTIVE PROBLEMS: (23) Alcoholism (98408013) Anxiety depression (294163751) Atrial fibrillation (02110428) Back pain (116091200) BPH - benign prostatic hyperplasia (1433727067) Catheter, device, per self; per urologist (5077132829) COPD with chronic bronchitis (266273073) Elevated liver enzymes (3877774454) Enlarged prostate (422069471) Erectile dysfunction (3811908591) GERD (gastroesophageal reflux disease) (217308321) Hepatitis (452512999) Hiatal hernia (054298291) Hyperlipidemia (82385271) Hypertension (92937533) Kidney stone (713980184) Lightheadedness (2477534050) Osteoarthritis (2132751457) Palpitations (345202172) 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 (7856372271) Sleep apnea (445667161) Squamous cell carcinoma (67795681) Tobacco use (8074855636) MEDICATIONS: Active Inpt Meds: celecoxib (CeleBREX) Start: 08/26/17 6:00:00 EDT, Dose = 400 mg, = 2 cap(s), Oral, PREOP pharm, Stop: 08/26/17 23:59:00 EDT, 0 citric acid-sodium citrate (Bicitra) Start: 08/26/17 6:00:00 EDT, Dose = 30 mL, Soln, Oral, PREOP pharm, Stop: 08/26/17 23:59:00 EDT, 0 famotidine (Pepcid IV) Start: 08/26/17 6:00:00 EDT, Dose = 20 mg, = 2 mL, IV Push, PREOP pharm, Stop: 08/26/17 23:59:00 EDT, 0 morphine 5 mg + ropivacaine 200 mg + ketorolac 30 mg + EPINEPHrine 0.6 mg (Duramorph PF 1 mg/mL preservative-free injectable solution 5 mg + Naropin 200 mg + Toradol 30 mg +) Start: 08/26/17 6:00:00 EDT, Other, PREOP pharm, 18 hour(s), Stop: 08/26/17 23:59:00 EDT, mL/hr, Infuse over: 0 minute(s), 0 oxyCODONE (OxyCONTIN) Start: 08/26/17 6:00:00 EDT, Dose = 10 mg, = 1 tab(s), Oral, PREOP pharm, Stop: 08/26/17 23:59:00 EDT, 0 povidone iodine topical 08/26/17 6:00:00 EDT, Topical (INT), PREOP pharm, 18 hour(s), Hard Stop, Stop date 08/26/17 23:59:00 EDT tranexamic acid (Cyklokapron IVPB) Start: 08/26/17 6:00:00 EDT, Dose = 1,000 mg, = 10 mL, IV Piggyback, PREOP pharm, 18 hour(s), Stop: 08/26/17 23:59:00 EDT, Rate: 150 mL/hr, Infuse over: 20 minute(s), 0 tranexamic acid (Cyklokapron IVPB) Start: 08/26/17 6:00:00 EDT, Dose = 1,000 mg, = 10 mL, IV Piggyback, PREOP pharm, 18 hour(s), Stop: 08/26/17 23:59:00 EDT, Rate: 150 mL/hr, Infuse over: 20 minute(s), 0 Active PRN Meds: None One Time Meds: None Active IV Meds: Lactated Ringers Infusion 1,000 mL (LR 1,000 mL) Start: 07/15/22 8:12:00 EST, Rate: 50 mL/hr, 07/15/22 8:12:00 EST ALLERGIES: (4) codeine isosorbide mononitrate Neosporin Xarelto FAMILY HISTORY: SOCIAL HISTORY: PHYSICAL EXAM: VITALS: [id number](kg) 07/15 08:3436.5--[id number]/20 80.0 24 Hr Tmax: 36.5 at 07/15 08:34 36 Hr Tmax: 36.5 at 07/15 08:34 Vital Signs are the last 5 in the past 48 hours. Weights display the last 5 within 7 days. Initial Wt: 07/15 80.0 kg 176 lb Current Wt: 07/15 80.0 kg 176 lb GENERAL: HEENT: CARDIOVASCULAR: RESPIRATORY: ABDOMEN: EXREMETIES: NEUROLOGICAL: PSYCHIATRIC: LABS: No 36hr Lab Data DIAGNOSTICS: IMPRESSION: PLAN: History and Physical Update I have examined the patient; reviewed the H&P and there are no changes to the H&P unless noted below. Digitally Signed by PATO WEST MD on 07/15/2022 09:40 AM [facility]02-20-2023 Nurse Progress note 0835- Pt took Warfarin yesterday, Dr aware, let patient decide whether to go through with procedureknowing that biopsied and dilation JAMES NOT be done. Pt aware of the risks and chooses to go throughwill procedure today. Digitally Signed by Sonam Lua RN on 07/15/2022 09:06 AM [facility]01-27-2023 Note ORIGINAL EXAMINATION: ESOPHAGRAM/BA SWALLOW06/21/2022 8:54 am Double-contrast esophagram with barium tablet TECHNIQUE: Fluoroscopic time: 157 seconds Total dose: 78.90 mGy COMPARISON: None HISTORY: ORDERING SYSTEM PROVIDED HISTORY: Reason for Exam: dysphagia, VOMITING, ACHALASIA FINDINGS: The swallowing mechanism is fluoroscopically normal except for mild loss of oral control and slight spillover of barium into the esophagus prior to initiating swallowing. There is no laryngeal penetration or aspiration. A prominent cricopharyngeus impression relaxes adequately. No Zenker diverticulum. The thoracic esophagus shows normal distensibility and mucosal pattern. There is no fixed narrowing, ulceration or other abnormality. There is mild to moderate esophageal dysmotility without significant tertiary contractions however. A barium tablet passes uneventfully through the esophagus. No hiatal hernia is demonstrated. There is a small amount of gastroesophageal reflux elicited with water provocation. 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 Mild gastroesophageal reflux. No achalasia or obvious hiatal hernia. RECOMMENDATIONS: Unavailable Interpreted by: Leobardo Ng MD Preliminary Report By: Leobardo Ng MD Electronically signed By Leobardo Ng MD Dictated Date: 06/21/2022 9:14:41 AM Prelim Date: 06/21/2022 9:19:29 AM Sign Date: 06/21/2022 9:19:29 AM Ordering Provider: PATO WEST [facility]01-27-2023 Note ORIGINAL EXAMINATION: ESOPHAGRAM/BA SWALLOW06/21/2022 8:54 am Double-contrast esophagram with barium tablet TECHNIQUE: Fluoroscopic time: 157 seconds Total dose: 78.90 mGy COMPARISON: None HISTORY: ORDERING SYSTEM PROVIDED HISTORY: Reason for Exam: dysphagia, VOMITING, ACHALASIA FINDINGS: The swallowing mechanism is fluoroscopically normal except for mild loss of oral control and slight spillover of barium into the esophagus prior to initiating swallowing. There is no laryngeal penetration or aspiration. A prominent cricopharyngeus impression relaxes adequately. No Zenker diverticulum. The thoracic esophagus shows normal distensibility and mucosal pattern. There is no fixed narrowing, ulceration or other abnormality. There is mild to moderate esophageal dysmotility without significant tertiary contractions however. A barium tablet passes uneventfully through the esophagus. No hiatal hernia is demonstrated. There is a small amount of gastroesophageal reflux elicited with water provocation. 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 Mild gastroesophageal reflux. No achalasia or obvious hiatal hernia. RECOMMENDATIONS: Unavailable Interpreted by: Leobardo Ng MD Preliminary Report By: Leobardo Ng MD Electronically signed By Leobardo Ng MD Dictated Date: 06/21/2022 9:14:41 AM Prelim Date: 06/21/2022 9:19:29 AM Sign Date: 06/21/2022 9:19:29 AM [facility] Appointment Date:08/20/2021 08:50:00 AM Scheduled Provider:ILENE ANDERSON Location:[facility] Appointment Type:PC OV Future Scheduled Tests Laboratory* Complete Blood Count 02/19/21 * Lipid Profile 02/19/21 * Complete Metabolic Panel 02/19/21 Radiology* US Abdomen Limited 04/11/21 [facility] Evaluation + Plan note Future Appointments Appointment Date:08/20/2021 08:50:00 AM Scheduled Provider:ILENE ANDERSON Location:[facility] Appointment Type:PC OV Future Scheduled Tests Laboratory* Complete Blood Count 02/19/21 * Lipid Profile 02/19/21 * Complete Metabolic Panel 02/19/21 [facility] Evaluation + Plan note Future Appointments Appointment Date:07/26/2021 10:00:00 AM Scheduled Provider: Location:[facility] Appointment Type: [place] Appointment Date:08/07/2021 09:00:00 AM Scheduled Provider: Location:[facility] Appointment Type:ACC POC Established Patient Appointment Date:08/20/2021 08:50:00 AM Scheduled Provider:ILENE ANDERSON Location:[facility] Appointment Type:PC OV Future Scheduled Tests Laboratory* Complete Blood Count 02/19/21 * Lipid Profile 02/19/21 * Complete Metabolic Panel 02/19/21 Radiology* XR Chest 2 Views (PA & Lateral) 07/24/21 [facility] Evaluation + Plan note Future Appointments Appointment Date:08/29/2021 10:30:00 AM Scheduled Provider: Location:[facility] Appointment Type:PT Treatment - [place] Appointment Date:09/04/2021 08:30:00 AM Scheduled Provider: Location:[facility] Appointment Type:ACC POC Established Patient Appointment Date:02/11/2022 08:50:00 AM Scheduled Provider:ILENE ANDERSON Location:[facility] Appointment Type:PC OV Future Scheduled Tests Laboratory* Complete Blood Count 02/19/21 * Lipid Profile 02/19/21 * Complete Metabolic Panel 02/19/21 Radiology* XR Chest 2 Views (PA & Lateral) 07/24/21 [facility] [email or web address] + Plan note Future Appointments Appointment Date:09/18/2022 11:30:00 AM Scheduled Provider:MARCOS HARPER Location:[facility] Appointment Type:PC OV Future Scheduled Tests Laboratory* Complete Blood Count 03/04/22 * Lipid Profile 03/04/22 * Complete Metabolic Panel 03/04/22 Radiology* XR Chest 2 Views (PA & Lateral) 07/24/21 [facility] Evaluation + Plan note Future Appointments Appointment Date:08/27/2022 11:00:00 AM Scheduled Provider:MARCOS HARPER Location:[facility] Appointment Type:PC OV Appointment Date:09/06/2022 10:00:00 AM Scheduled Provider: Location:[facility] Appointment Type:ACC POC Established Patient Appointment Date:09/18/2022 11:30:00 AM Scheduled Provider:MARCOS HARPER Location:[facility] Appointment Type:PC OV Future Scheduled Tests Laboratory* Complete Blood Count 03/04/22 * Lipid Profile 03/04/22 * Complete Metabolic Panel 03/04/22 [facility] Evaluation + Plan note Future Appointments Appointment Date:09/06/2022 10:00:00 AM Scheduled Provider: Location:[facility] Appointment Type:ACC POC Established Patient Appointment Date:10/10/2022 10:30:00 AM Scheduled Provider:MARCOS HARPER Location:[facility] Appointment Type:PC OV Future Scheduled Tests Laboratory* Complete Blood Count 03/04/22 * Lipid Profile 03/04/22 * Complete Metabolic Panel 03/04/22 [facility] Evaluation + Plan note Future Appointments Appointment Date:10/07/2023 09:30:00 AM Scheduled Provider: Location:[facility] Appointment Type:PT Treatment [facility] Appointment Date:10/09/2023 11:30:00 AM Scheduled Provider: Location:[facility] Appointment Type:PT Treatment [facility] Appointment Date:10/14/2023 10:30:00 AM Scheduled Provider: Location:[facility] Appointment Type:PT [facility] Appointment Date:10/16/2023 10:30:00 AM Scheduled Provider: Location:[facility] Appointment Type:PT Treatment - [place] Appointment Date:10/21/2023 10:30:00 AM Scheduled Provider: Location:[facility] Appointment Type:PT Treatment - [place] Appointment Date:10/23/2023 10:30:00 AM Scheduled Provider: Location:[facility] Appointment Type:PT Treatment - [place] Appointment Date:10/28/2023 10:30:00 AM Scheduled Provider: Location:[facility]ment Type[facility] [facility] Appointment Date:11/13/2023 09:30:00 AM Scheduled Provider: Location:[facility] Appointment Type:ACC POC Established Patient Appointment Date:03/10/2024 10:30:00 AM Scheduled Provider:MARCOS HARPER Location:[facility] Appointment Type:PC OV Future Scheduled Tests Laboratory* Prostate Specific Antigen 09/09/23 * Thyroid Stimulating Hormone 09/09/23 * A1C Hemoglobin 09/09/23 * Complete Blood Count 10/10/22 * Complete Blood Count 09/09/23 * Lipid Profile 09/09/23 * Vitamin D Level 09/09/23 * Complete Metabolic Panel 10/10/22 * Complete Metabolic Panel 09/09/23 [facility] Evaluation + Plan note Future Appointments Appointment Date:10/30/2023 11:30:00 AM Scheduled Provider: Location:[facility] Appointment Type:CT Chest w/o Contrast Appointment Date:11/04/2023 11:30:00 AM Scheduled Provider: Location:[facility] Appointment Type:CT Abdomen and Pelvis w/ Contrast Appointment Date:11/13/2023 09:30:00 AM Scheduled Provider: Location:[facility] Appointment Type:ACC POC Established Patient Appointment Date:03/10/2024 10:30:00 AM Scheduled Provider:MARCOS HARPER Location:[facility] Appointment Type:PC OV Future Scheduled Tests Laboratory* Prostate Specific Antigen 09/09/23 * Thyroid Stimulating Hormone 09/09/23 * A1C Hemoglobin 09/09/23 * Complete Blood Count 09/09/23 * Lipid Profile 09/09/23 * Vitamin D Level 09/09/23 * Complete Metabolic Panel 09/09/23 Radiology* CT Thorax w/o Contrast 10/30/23 * CT Abdomen and Pelvis w/ contrast 11/04/23 [facility] Evaluation + Plan note Future Appointments Appointment Date:11/04/2023 03:45:00 AM Scheduled Provider: Location:[facility] Appointment Type:CT Abdomen and Pelvis w/ Contrast Appointment Date:11/13/2023 09:30:00 AM Scheduled Provider: Location:[facility] Appointment Type:ACC POC Established Patient Appointment Date:03/10/2024 10:30:00 AM Scheduled Provider:MARCOS HARPER Location:[facility] Appointment Type:PC OV Future Scheduled Tests Laboratory* Prostate Specific Antigen 09/09/23 * Thyroid Stimulating Hormone 09/09/23 * A1C Hemoglobin 09/09/23 * Complete Blood Count 09/09/23 * Lipid Profile 09/09/23 * Vitamin D Level 09/09/23 * Complete Metabolic Panel 09/09/23 Radiology* CT Abdomen and Pelvis w/ contrast 11/04/23 [facility] Evaluation + Plan note Future Appointments Appointment Date:01/05/2024 10:00:00 AM Scheduled Provider: Location:[facility] Appointment Type:ACC POC Established Patient Appointment Date:03/10/2024 10:30:00 AM Scheduled Provider:MARCOS HARPER Location:[facility] Appointment Type:PC OV Future Scheduled Tests Laboratory* Prostate Specific Antigen 09/09/23 * Thyroid Stimulating Hormone 09/09/23 * A1C Hemoglobin 09/09/23 * Complete Blood Count 09/09/23 * Lipid Profile 09/09/23 * Vitamin D Level 09/09/23 * Complete Metabolic Panel 09/09/23 Radiology* CT Abdomen and Pelvis w/ contrast 11/04/23 [facility] Evaluation + Plan note Future Appointments Appointment Date:01/30/2024 10:00:00 AM Scheduled Provider: Location:[facility] Appointment Type:ACC POC Established Patient Appointment Date:02/03/2024 01:00:00 PM Scheduled Provider: Location:[facility] Appointment Type:CT Abdomen and Pelvis w/ Contrast Appointment Date:02/03/2024 01:30:00 PM Scheduled Provider: Location:[facility] Appointment Type:CT Chest w/ Contrast Appointment Date:03/10/2024 10:30:00 AM Scheduled Provider:MARCOS HARPER Location:[facility] Appointment Type:PC OV Future Scheduled Tests Laboratory* Prostate Specific Antigen 09/09/23 * Thyroid Stimulating Hormone 09/09/23 * A1C Hemoglobin 09/09/23 * Complete Blood Count 09/09/23 * Lipid Profile 09/09/23 * Vitamin D Level 09/09/23 * Complete Metabolic Panel 09/09/23 Radiology* CT Thorax w/ Contrast 02/03/24 * CT Abdomen and Pelvis w/ contrast 02/03/24 [facility] Evaluation + Plan note Future Appointments Appointment Date:02/20/2024 10:30:00 AM Scheduled Provider: Location:[facility] Appointment Type:ACC POC Established Patient Appointment Date:03/10/2024 10:30:00 AM Scheduled Provider:MARCOS HARPER Location:[facility] Appointment Type:PC OV Future Scheduled Tests Laboratory* Prostate Specific Antigen 09/09/23 * Thyroid Stimulating Hormone 09/09/23 * A1C Hemoglobin 09/09/23 * Complete Blood Count 09/09/23 * Lipid Profile 09/09/23 * Vitamin D Level 09/09/23 * Complete Metabolic Panel 09/09/23 [facility] Evaluation noteNo assessment information available [facility] Work Phone: Evaluation note* Diagnosis Onset Date Resolution Status Chest pain acute Dyspnea acute Essential (primary) hypertension chronic Hyperlipidemia chronic Longstanding persistent atrial fibrillation chronic [facility] Work Phone: Hospital course Narrative No data available for this section [facility] Hospital Discharge instructions No data available for this section [facility] Hospital Discharge instructionsAmbulatory Orders* Phase II, Outpatient Cardiac Rehab Location: [facility] Work Phone: Progress note No data available for this section [facility] Reason for referral (narrative)No reason for referral [facility]: Summary Purpose Family History Relationship Condition Age at Onset Recorded Date/T daniel father Cardiac disease Unknown Hypertension Unknown Cerebrovascular accident (CVA) Unknown mother Hypertension Unknown Malignant neoplasm of breast Unknown Advance Directives Advance Directive Response Recorded Date/ Time Advance Directives No June 20, 2020 8:23am Living Will No August 09, 2020 6:03pm Power of Radiator Specialist No August 09 6:03pm Advance Directive Response Recorded Date/ Time Advance Directives No June 20, 2020 8:23am Advance Directive Response Recorded Date/ Time Advance Directives on File Yes November 29, 2024 9:47am Living Will Yes November 29, 2024 9 :47am Do you have a Healthcare Power of Radiator Specialist? No November 29, 2024 12:22pm Name of Medical Power of Radiator Specialist Jenny Enzo November 29, 2024 9:47am Advance Directives Yes November 29 9:47am Chief Complaint and Reason for Visit Chief Complaint Personal history of nicotine dependence Chief Complaint 1 Y FU CHEST PAIN Reason for Visit Chest pain Dyspnea Essential (primary) hypertension Hyperlipidemia Longstanding persistent atrial fibrillation Chief Complaint Admit Date S/P OUSMANE 08/16August 20, 2024 10: 02am SOB August 20, 2024 11: 40am Reason for Visit Admit Date Chest pain August 20, 2024 10: 02am CHF (congestive heart failure) July 10:02am Dyspnea August 20, 2024 10: 02am Hypokalemia August 20, 2024 10: 02am PVCs (premature ventricular contractions ) August 20, 2024 10:02am 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 August 20, 2024 10:02am Essential (primary) hypertension July 252024 10:02am Hyperlipidemia August 20, 2024 10: 02am Longstanding persistent atrial fibrillat ion August 20, 2024 10:02am Chief Complaint Admit Date S/P OUSMANE 08/16August 20, 2024 10: 02am SOB August 20, 2024 11: 40am UNSPECIFIED ATRIAL FIBRILLATION August 11:33am UNSPECIFIED ATRIAL FIBRILLATION August 12:03pm Chief Complaint Admit Date S/P OUSMANE 08/16August 20, 2024 10: 02am SOB August 20, 2024 11: 40am UNSPECIFIED ATRIAL FIBRILLATION August 11:33am UNSPECIFIED ATRIAL FIBRILLATION August 12:03pm 4 W FU September 17, 2024 11: 05am E-ORDER September 30, 2024 12:03p m Reason for Visit Admit Date Chest pain August 20, 2024 10: 02am CHF (congestive heart failure) July 10:02am Dyspnea August 20, 2024 10: 02am PVCs (premature ventricular contractions ) August 20, 2024 10:02am 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 August 20, 2024 10:02am Essential (primary) hypertension July 252024 10:02am Hyperlipidemia August 20, 2024 10: 02am Longstanding persistent atrial fibrillat ion August 20, 2024 10:02am Hypokalemia August 20, 2024 10: 02am Chest pain September 17, 2024 11: 05am CHF (congestive heart failure) August 11:05am Dyspnea September 17, 2024 11: 05am PVCs (premature ventricular contractions ) September 17, 2024 11:05am 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 September 17, 2024 11:05am Essential (primary) hypertension August 252024 11:05am Hyperlipidemia September 17, 2024 11: 05am Longstanding persistent atrial fibrillat ion September 17, 2024 11:05am Hypokalemia September 17, 2024 11: 05am Chief Complaint Admit Date S/P OUSMANE 08/16August 20, 2024 10: 02am SOB August 20, 2024 11: 40am UNSPECIFIED ATRIAL FIBRILLATION August 11:33am UNSPECIFIED ATRIAL FIBRILLATION August 12:03pm 4 W FU September 17, 2024 11: 05am E-ORDER September 30, 2024 12:03p m 8 W FU November 05, 2024 11:0 9am Reason for Visit Admit Date Chest pain August 20, 2024 10: 02am CHF (congestive heart failure) July 10:02am Dyspnea August 20, 2024 10: 02am PVCs (premature ventricular contractions ) August 20, 2024 10:02am 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 August 20, 2024 10:02am Essential (primary) hypertension July 252024 10:02am Hyperlipidemia August 20, 2024 10: 02am Longstanding persistent atrial fibrillat ion August 20, 2024 10:02am Hypokalemia August 20, 2024 10: 02am Chest pain September 17, 2024 11: 05am CHF (congestive heart failure) August 11:05am Dyspnea September 17, 2024 11: 05am PVCs (premature ventricular contractions ) September 17, 2024 11:05am 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 September 17, 2024 11:05am Essential (primary) hypertension August 252024 11:05am Hyperlipidemia September 17, 2024 11: 05am Longstanding persistent atrial fibrillat ion September 17, 2024 11:05am Hypokalemia September 17, 2024 11: 05am Chest pain November 05, 2024 11:0 9am CHF (congestive heart failure) October 11:09am Dyspnea November 05, 2024 11:0 9am PVCs (premature ventricular contractions ) November 05, 2024 11:09am 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 November 05, 2024 11:09am Essential (primary) hypertension November 052024 11:09am Hyperlipidemia November 05, 2024 11:0 9am Longstanding persistent atrial fibrillat ion November 05, 2024 11:09am Hypokalemia November 05, 2024 11:0 9am Chief Complaint Admit Date S/P OUSMANE 08/16August 20, 2024 10: 02am SOB August 20, 2024 11: 40am UNSPECIFIED ATRIAL FIBRILLATION August 11:33am UNSPECIFIED ATRIAL FIBRILLATION August 12:03pm 4 W FU September 17, 2024 11: 05am E-ORDER September 30, 2024 12:03p m 8 W FU November 05, 2024 11:0 9am Atherosclerotic heart disease [place] coronary a November 29, 2024 9:18am Atherosclerotic heart disease [place] coronary a November 29, 2024 12:21pm Atherosclerotic heart disease [place] coronary a November 29, 2024 3:23pm Atherosclerotic heart disease of [place] coronary a November 30, 2024 7:01am Reason for Visit Admit Date Chest pain August 20, 2024 10: 02am CHF (congestive heart failure) July 10:02am Dyspnea August 20, 2024 10: 02am PVCs (premature ventricular contractions ) August 20, 2024 10:02am 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 August 20, 2024 10:02am Essential (primary) hypertension July 252024 10:02am Hyperlipidemia August 20, 2024 10: 02am Longstanding persistent atrial fibrillat ion August 20, 2024 10:02am Hypokalemia August 20, 2024 10: 02am Chest pain September 17, 2024 11: 05am CHF (congestive heart failure) August 11:05am Dyspnea September 17, 2024 11: 05am PVCs (premature ventricular contractions ) September 17, 2024 11:05am 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 September 17, 2024 11:05am Essential (primary) hypertension August 252024 11:05am Hyperlipidemia September 17, 2024 11: 05am Longstanding persistent atrial fibrillat ion September 17, 2024 11:05am Hypokalemia September 17, 2024 11: 05am Chest pain November 05, 2024 11:0 9am CHF (congestive heart failure) October 11:09am Dyspnea November 05, 2024 11:0 9am PVCs (premature ventricular contractions ) November 05, 2024 11:09am 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 November 05, 2024 11:09am Essential (primary) hypertension November 052024 11:09am Hyperlipidemia November 05, 2024 11:0 9am Longstanding persistent atrial fibrillat ion November 05, 2024 11:09am Hypokalemia November 05, 2024 11:0 9am CAD (coronary artery disease) November 29, 2024 9:18am Essential (primary) hypertension November 9:18am Hyperlipidemia November 29, 2024 9:18a m Longstanding persistent atrial fibrillat ion November 29, 2024 9:18am Additional Source Comments (unrecognized sect ion and content) No Status Records FoundNo Status Records FoundNo Status Records FoundNo Status Records Found INFORMATION SOURCE (unrecogn ized section and content) DATE CREATED AUTHOR 11/19/2017 [facility] DATE CREATED AUTHOR AUTHOR'S ORGANIZ ATION 01/28/2024 [facility] ([place] DATE CREATED AUTHOR AUTHOR'S ORGANIZ ATION 09/12/2024 [facility] DATE CREATED AUTHOR AUTHOR'S ORGANIZ ATION 11/27/2024 [facility] Care Team (unrecognized sect ion and content) Team Status: Active Member Role Status Dates Rosalie Scott MENTAL HEALTH NURSE PRACTITIONER, MENTAL HEALTH NURSE PRACTITIONER-C Family Provider Active Marcos Harper MENTAL HEALTH NURSE PRACTITIONER, MENTAL HEALTH NURSE PRACTITIONER-C Primary Care Provider Active Team Status: Inactive Member Role Status Dates Ilene Anderson MENTAL HEALTH NURSE PRACTITIONER, MENTAL HEALTH NURSE PRACTITIONER-C Referring Provider Active Dr. Fco Aguilera MD Attending Provider Active Marcos Harper MENTAL HEALTH NURSE PRACTITIONER, MENTAL HEALTH NURSE PRACTITIONER-C Primary Care Provider Active Team Status: Active Member Role Status Dates Marcos Harper NP, MENTAL HEALTH NURSE PRACTITIONER-C Primary Care Provider Active Dr. Fco Aguilera MD Attending Provider Active Team Status: Inactive Member Role Status Dates Marcos Harper NP, MENTAL HEALTH NURSE PRACTITIONER-C Primary Care Provider Active Dr. Fco Aguilera MD Attending Provider, Referring Pro vider Active Team Status: Active Member Role Status Dates Dr. Jovany Brush MD Primary Care Provider Active Team Status: Inactive Member Role Status Dates Marcos Harper MENTAL HEALTH NURSE PRACTITIONER, MENTAL HEALTH NURSE PRACTITIONER-C Primary Care Provider Active Start: August 20, 2024 End: August 20, 2024 Marcos Harper MENTAL HEALTH NURSE PRACTITIONER, MENTAL HEALTH NURSE PRACTITIONER-C Referring Provider Active S tart: August 20, 2024 End: August 20, 2024 MAURO Ramos Attending Provider Active St art: August 20, 2024 End: August 20, 2024 Team Status: Inactive Member Role Status Dates Marcos Harper MENTAL HEALTH NURSE PRACTITIONER, MENTAL HEALTH NURSE PRACTITIONER-C Primary Care Provider Active Start: August 20, 2024 End: August 20, 2024 MAURO Ramos Attending Provider Active St art: August 20, 2024 End: August 20, 2024 MAURO Ramos Referring Provider Active St art: August 20, 2024 End: August 20, 2024 Team Status: Inactive Member Role Status Dates MAURO Ramos Attending Provider Active St art: August 27, 2024 End: August 27, 2024 MAURO Ramos Referring Provider Active St art: August 27, 2024 End: August 27, 2024 Dr. Jovany Brush MD Primary Care Provider Active Start: August 27, 2024 End: August 27, 2024 Team Status: Active Member Role Status Dates Dr. Jovany Brush MD Primary Care Provider Active Start: August 27, 2024 Dr. Fco Aguilera MD Attending Provider Active S tart: August 27, 2024 MAURO Ramos Referring Provider Active St art: August 27, 2024 Team Status: Active Member Role Status Dates Dr. Jovany Brush MD Primary Care Provider Active Start: August 30, 2024 MAURO Ramos Attending Provider Active St art: August 30, 2024 MAURO Ramos Referring Provider Active St art: August 30, 2024 Team Status: Active Member Role Status Dates Dr. Jovany Brush MD Primary Care Provider Active Start: September 01, 2024 Dr. Jovany rBush MD Attending Provider Active Start: September 01, 2024 Dr. Jovany Brush MD Referring Provider Active Start: September 01, 2024 Team Status: Inactive Member Role Status Dates Dr. Jovany Brush MD Primary Care Provider Active Start: August 30, 2024 End: August 30, 2024 MAURO Ramos Attending Provider Active St art: August 30, 2024 End: August 30, 2024 MAURO Ramos Referring Provider Active St art: August 30, 2024 End: August 30, 2024 Team Status: Inactive Member Role Status Dates Dr. Jovany Brush MD Primary Care Provider Active Start: September 01, 2024 End: September 01, 2024 Dr. Jovany Brush MD Attending Provider Active Start: September 01, 2024 End: September 01, 2024 Dr. Jovany Brush MD Referring Provider Active Start: September 01, 2024 End: September 01, 2024 Team Status: Inactive Member Role Status Dates Marcos Harper MENTAL HEALTH NURSE PRACTITIONER, MENTAL HEALTH NURSE PRACTITIONER-C Referring Provider Active S tart: September 17, 2024 End: September 17, 2024 MAURO Ramos Attending Provider Active St art: September 17, 2024 End: September 17, 2024 Dr. Jovany Brush MD Primary Care Provider Active Start: September 17, 2024 End: September 17, 2024 Team Status: Inactive Member Role Status Dates Dr. Jovany Brush MD Primary Care Provider Active Start: September 30, 2024 End: September 30, 2024 MAURO Ramos Attending Provider Active St art: September 30, 2024 End: September 30, 2024 MAURO Ramos Referring Provider Active St art: September 30, 2024 End: September 30, 2024 Team Status: Inactive Member Role Status Dates Dr. Jovany Brush MD Primary Care Provider Active Start: November 05, 2024 End: November 05, 2024 Dr. Jovany Brush MD Referring Provider Active Start: November 05, 2024 End: November 05, 2024 MAURO Ramos Attending Provider Active St art: November 05, 2024 End: November 05, 2024 Team Status: Active Member Role/Relationship Status Dates Dr. Jovany Brush MD Primary Care Provider Active Team Status: Inactive Member Role/Relationship Status Dates Marcos Harper MENTAL HEALTH NURSE PRACTITIONER, MENTAL HEALTH NURSE PRACTITIONER-C Primary Care Provider Active Start: August 20, 2024 End: August 20, 2024 Marcos Baltes MENTAL HEALTH NURSE PRACTITIONER, MENTAL HEALTH NURSE PRACTITIONER-C Referring Provider Active S tart: August 20, 2024 End: August 20, 2024 MAURO Ramos Attending Provider Active St art: August 20, 2024 End: August 20, 2024 Team Status: Inactive Member Role/Relationship Status Dates Marcos Harper MENTAL HEALTH NURSE PRACTITIONER, MENTAL HEALTH NURSE PRACTITIONER-C Primary Care Provider Active Start: August 20, 2024 End: August 20, 2024 MAURO Ramos Attending Provider Active St art: August 20, 2024 End: August 20, 2024 MAURO Ramos Referring Provider Active St art: August 20, 2024 End: August 20, 2024 Team Status: Inactive Member Role/Relationship Status Dates MAURO Ramos Attending Provider Active St art: August 27, 2024 End: August 27, 2024 MAURO Ramos Referring Provider Active St art: August 27, 2024 End: August 27, 2024 Dr. Jovany Brush MD Primary Care Provider Active Start: August 27, 2024 End: August 27, 2024 Team Status: Active Member Role/Relationship Status Dates Dr. Jovany Brush MD Primary Care Provider Active Start: August 27, 2024 Dr. Fco Aguilera MD Attending Provider Active S tart: August 27, 2024 MAURO Ramos Referring Provider Active St art: August 27, 2024 Team Status: Inactive Member Role/Relationship Status Dates Dr. Jovany Brush MD Primary Care Provider Active Start: August 30, 2024 End: August 30, 2024 MAURO Ramos Attending Provider Active St art: August 30, 2024 End: August 30, 2024 MAURO Ramos Referring Provider Active St art: August 30, 2024 End: August 30, 2024 Team Status: Inactive Member Role/Relationship Status Dates Dr. Jovany Brush MD Primary Care Provider Active Start: September 01, 2024 End: September 01, 2024 Dr. Jovany Brush MD Attending Provider Active Start: September 01, 2024 End: September 01, 2024 Dr. Jovany Brush MD Referring Provider Active Start: September 01, 2024 End: September 01, 2024 Team Status: Inactive Member Role/Relationship Status Dates Marcos Harper NP, MENTAL HEALTH NURSE PRACTITIONER-C Referring Provider Active S tart: September 17, 2024 End: September 17, 2024 Maikel Liang , MAURO Attending Provider Active St art: September 17, 2024 End: September 17, 2024 Dr. Jovany Brush MD Primary Care Provider Active Start: September 17, 2024 End: September 17, 2024 Team Status: Inactive Member Role/Relationship Status Dates Dr. Jovany Brush MD Primary Care Provider Active Start: September 30, 2024 End: September 30, 2024 AMURO Ramos Attending Provider Active St art: September 30, 2024 End: September 30, 2024 Maikel Liang PA Referring Provider Active St art: September 30, 2024 End: September 30, 2024 Team Status: Inactive Member Role/Relationship Status Dates Dr. Jovany Brush MD Primary Care Provider Active Start: November 05, 2024 End: November 05, 2024 Dr. Jovany Brush MD Referring Provider Active Start: November 05, 2024 End: November 05, 2024 MAURO Ramos Attending Provider Active St art: November 05, 2024 End: November 05, 2024 Team Status: Active Member Role/Relationship Status Dates Dr. Jovany Brush MD Primary Care Provider Active Start: November 29, 2024 Dr. Fco Aguilera MD Attending Provider Active S tart: November 29, 2024 Dr. Fco Aguilera MD Referring Provider Active S tart: November 29, 2024 MAURO Ramos Other Provider Active Start: November 29, 2024 Dr. Hira Mathias DO Other Provider Active Star t: November 29, 2024 Team Status: Active Member Role/Relationship Status Dates Dr. Jovany Brush MD Primary Care Provider Active Start: November 29, 2024 Dr. Fco Aguilera MD Referring Provider Active S tart: November 29, 2024 Dr. Fco Aguilera MD Other Provider Active Start : November 29, 2024 MAURO Ramos Other Provider Active Start: November 29, 2024 Dr. Bryan Hernández MD Attending Provider Active Start: November 29, 2024 Team Status: Active Member Role/Relationship Status Dates Dr. Jovany Brush MD Primary Care Provider Active Start: November 29, 2024 Dr. Fco Aguilera MD Referring Provider Active S tart: November 29, 2024 Dr. Fco Aguilera MD Other Provider Active Start : November 29, 2024 MAURO Ramos Other Provider Active Start: November 29, 2024 Dr. Margarita Levy MD Attending Provider Active Start: November 29, 2024 Dr. Margarita Levy MD Other Provider Active Star t: November 29, 2024 Team Status: Active Member Role/Relationship Status Dates Dr. Jovany Brush MD Primary Care Provider Active Start: November 30, 2024 Dr. Fco Aguilera MD Attending Provider Active S tart: November 30, 2024 Dr. Fco Aguilera MD Referring Provider Active S tart: November 30, 2024 Dr. Fco Aguilera MD Other Provider Active Start : November 30, 2024 MAURO Ramos Other Provider Active Start: November 30, 2024 Dr. Hira Mathias DO Other Provider Active Star t: November 30, 2024 Goals (unrecognized section and content) Goals may be documented in a n alternate section Care Team (unrecognized sect ion and content) Care Team Personnel Name: MARCOS HARPER Position: P4 Advanced Practice Nurse Member Role: Primary Care Physician Address: Address: [address] [place] [address] Name: Rashaad Hidalgo PT Position: P3 Scheduling - Field Sales Consultant Advanced Member Role: Other Name: PATO WEST MD Position: Physician Member Role: Bakery And Deli Sales Manager Address: Address: [address] [facility] [address] [place] [address]- [place] Name: FCO AGUILERA MD Member Role: Chief Nuclear Medicine Technologist Address: Address: [address] [facility] [address] [place] [address]- [place] Name: BREANNE MEJIA MD Position: Physician Member Role: Central Aisle Cashier Address: Address: [address] [facility] [place] [address]- [place] Care Team Related Persons Name: JENNY BONDS Address: [facility] Care Team Personnel Name: MARCOS HARPER Position: P4 Advanced Practice Nurse Member Role: Primary Care Physician Address: Address: [address] [place] [address] Name: Rashaad Hidalgo PT Position: P3 Scheduling - Field Sales Consultant Advanced Member Role: Other Name: PATO WEST MD Position: Physician Member Role: Bakery And Deli Sales Manager Address: Address: [address] [place] [address]- Name: FCO AGUILERA MD Member Role: Chief Nuclear Medicine Technologist Address: Address: [address] [address] [place] [id number] Name: BREANNE MEJIA MD Position: Physician Member Role: Central Aisle Cashier Address: Address: [address] [facility] [address] [place] [id number]- Care Team Related Persons Name: JENNY BONDS Kitty Address: [facility] FOR RECORDS PERTAINING TO PATIENTS WHO ARE OR HAVE BEEN ENROLLED IN A CHEMICAL DEPENDENCY/SUBSTANCEABUSE PROGRAM, SOME INFORMATION MAY BE OMITTED. This clinical summary was aggregated from multiple sources. Caution should be exercised in using it in the provision of clinical care. This summary normalizes information from multiple sources, and as a consequence, information in this document may materially change the coding, format and clinical context of patient data. In addition, data may be omitted in some cases. CLINICAL DECISIONS SHOULD BE BASED ON THE PRIMARY CLINICAL RECORDS. [facility] [employer] [facility]. provides no warranty or guarantee of the accuracy or completeness of information in this document.
--- NOTE | 2025-01-03 09:46 | CL.D_ITS ---
Patient Name: ANGI JACKSON Study Date: 11/29/2024 Performing: Fco Aguilera MD Ht: 72 inches 182.88 cm : 1950 Wt: 213.01 lbs 96.62 kg Age: 74 Gender: male BSA: 2.19 PROCEDURE(S) PERFORMED DC01-(22575)LHC/COR/LV IC12-(24411/C9600)RODO W/WO PTCA, SINGLE CORONARY ARTERY CLINICAL PROFILE AND INDICATIONS Indications: Worsening Angina Heart Failure: None CONCLUSIONS Severe mid LAD disease with moderate calcification, moderate nonobstructive left circumflex disease and mild right coronary artery disease and preserved ejection fraction. RECOMMENDATIONS Referred for immediate PCI DESCRIPTION OF PROCEDURE The patient arrived to the procedure lab. The risks and benefits of the procedure as well as a full description of our services here and current unavailability of surgical backup were fully explained to the patient and/or their significant other prior to the catheterization. The Timeout was completed, verifying the correct patient and procedure. The patient's procedural site was prepped and draped in the usual fashion. Local anesthetic was given subcutaneously to right radial region with Lidocaine 2%. Using a modified Seldinger technique, arterial access was obtained via the right radial artery, a 6Fr sheath was inserted. Left Coronary Artery selective angiography was performed in multiple views using a 5 Fr. 4.0 Zenia catheter. Right Coronary Artery selective angiography was then performed in multiple views using a 5 Fr. 4.0 Zenia catheter. Left Ventriculography was performed in OLSON projection using a 5 Fr. Pigtail catheter. LV to AO pullback pressures were then recorded. CORONARY ANGIOGRAPHY DOMINANCE: Right Dominant LEFT HEART ASSESSMENT Left Ventricular Ejection Fraction: by LV Gram 65 % Normal LV wall motion Normal Left Ventricular systolic function LEFT MAIN: Mild calcification, Mild luminal irregularities LEFT ANTERIOR DESCENDING ARTERY: Moderate calcification, Mild disease noted in the proximal left anterior descending artery in the mid anterior descending artery with an 80% stenotic lesion and mild diffuse distal disease noted. CIRCUMFLEX ARTERY: Nondominant left circumflex artery with moderate calcification noted and moderate luminal irregularities up to 50% stenosis. RIGHT CORONARY ARTERY: Mild calcification Mild luminal irregularities less than 30% COMPLICATIONS No Complications PROCEDURE MEDICATIONS Fentanyl 50 mcg IV Versed 1 mg IV Aspirin (325mg) 1 Tabs PO 11/29/2024 09:46:41 Brilinta 180 mg PO @ 11/29/2024 10:47:26 Heparin given IA 11/29/2024 10:19:36 SUMMARY OF HEMODYNAMIC DATA Time AIR REST AO 137/71 (95) SA 10:34:10 LV 156/16, 48 10:40:56 LV 137/14, 18 10:41:03 LV 135/12, 23 10:41:59 LVp 146/12, 31 10:42:03 AOp 161/85 (115) 10:42:08 AO 130/88 (106) 10:52:36 ECG 10:52:38 AIR REST 11:41:24 Signed By Fco Aguilera MD On 11/29/2024 11:51:44 Signed By Fco Aguilera MD On 11/29/2024 10:52:15 Fco Aguilera MD
== END 2024-12-01 12:29 | disposition home health service (06) | DRG 322 ==
LOC: ICU 11-30 06:57 → PCU 11-30 08:18 → CLSP 11-30 08:19 → ICU 11-30 08:19
PROVIDERS: Hospitalist; Internal Medicine; Student in an Organized Health Care Education/Training Program; Admitting Provider Internal Medicine Interventional Cardiology; PCP Family Medicine Geriatric Medicine; Referring Provider Internal Medicine Cardiovascular Disease; Visit Provider Internal Medicine Cardiovascular Disease
DX: I25.10 Atherosclerotic heart disease of native coronary artery without angina pectoris (principal); I50.30 Unspecified diastolic (congestive) heart failure; I69.322 Dysarthria following cerebral infarction; I11.0 Hypertensive heart disease with heart failure; J44.9 Chronic obstructive pulmonary disease, unspecified; F32.A Depression, unspecified; I48.0 Paroxysmal atrial fibrillation; E78.2 Mixed hyperlipidemia; K21.9 Gastro-esophageal reflux disease without esophagitis; G47.33 Obstructive sleep apnea (adult) (pediatric); F41.9 Anxiety disorder, unspecified; G89.29 Other chronic pain; Z95.5 Presence of coronary angioplasty implant and graft; Z79.01 Long term (current) use of anticoagulants; Z79.51 Long term (current) use of inhaled steroids; Z79.899 Other long term (current) drug therapy; Z87.891 Personal history of nicotine dependence
CPT/HCPCS: 36415; 71045; 74019; 80048; 80053; 82962; 83036; 83735; 83880; 84100; 85025; 85027; 85347; 85610; 85730; 92928; 93005; 93306; 93458; 94640; 94762; 99152; 99153; 99406; Q9967; A4216; C1725; C1769; C1874; C1887; C1894; C9600; J1327; J1938; J2405

== ENCOUNTER → 2024-12-08 | Outpatient (CLI) | payer MEDICARE, SELFPAY ==
--- NOTE | 2024-12-08 16:34 | MRI_ITS ---
PROCEDURE: BRAIN WITHOUT CONTRAST 12/08/2024 REASON FOR EXAM: ISCHEMIC STROKE TECHNIQUE: BRAIN WITHOUT CONTRAST Multiplanar and multisequence images were obtained. COMPARISON: None FINDINGS: 12 mm focus of diffusion restriction along the left milligan radiata consistent with acute/subacute ischemia. Corresponding hyperintense FLAIR signal at this location. No other areas of diffusion restriction. No acute intracranial hemorrhage, midline shift or mass effect. No microhemorrhage noted. Moderate generalized cerebral atrophy. Minimal periventricular hyperintense FLAIR signal likely related to chronic small-vessel ischemic disease. No cortical edema. No significant hydrocephalus. Globes are intact. Paranasal sinuses and mastoid air cells are relatively clear. MRI/Brain without Contrast IMPRESSION: 1. Small area of acute/subacute ischemia in the left milligan radiata measuring 1 2 mm. 2. Atrophy and minimal chronic small-vessel ischemic disease. Reading Location: [facility]
--- NOTE | 2024-12-08 16:34 | MRI_ITS ---
PROCEDURE: BRAIN WITHOUT CONTRAST 12/08/2024 REASON FOR EXAM: ISCHEMIC STROKE TECHNIQUE: BRAIN WITHOUT CONTRAST Multiplanar and multisequence images were obtained. COMPARISON: None FINDINGS: 12 mm focus of diffusion restriction along the left milligan radiata consistent with acute/subacute ischemia. Corresponding hyperintense FLAIR signal at this location. No other areas of diffusion restriction. No acute intracranial hemorrhage, midline shift or mass effect. No microhemorrhage noted. Moderate generalized cerebral atrophy. Minimal periventricular hyperintense FLAIR signal likely related to chronic small-vessel ischemic disease. No cortical edema. No significant hydrocephalus. Globes are intact. Paranasal sinuses and mastoid air cells are relatively clear. MRI/Brain without Contrast IMPRESSION: 1. Small area of acute/subacute ischemia in the left milligan radiata measuring 1 2 mm. 2. Atrophy and minimal chronic small-vessel ischemic disease. Reading Location: [facility]
== END | disposition home or self-care (01) ==
LOC: OPMRI 15:57
PROVIDERS: PCP Family Medicine Geriatric Medicine; Referring Provider Family Medicine Geriatric Medicine; Visit Provider Family Medicine Geriatric Medicine
DX: I63.9 Cerebral infarction, unspecified (principal)
CPT/HCPCS: 70551

== ENCOUNTER → 2024-12-16 | Outpatient (CLI) | payer MEDICARE, SELFPAY ==
--- NOTE | 2024-12-16 13:20 | CT_ITS ---
PROCEDURE: CHEST WITHOUT CONTRAST 12/16/2024 REASON FOR EXAM: COPD Former smoker. Patient has smoked half a pack per day for 50+ years. TECHNIQUE: Chest CT without contrast. Coronal and Sagittal reconstruction series were provided. One or more dose reduction techniques were used (e.g., Automated exposure control, adjustment of the mA and/or kV according to patient size, use of iterative reconstruction technique RADIATION DOSE SUMMARY: CTDlvol: 17.92 mGy DLP: 725.3 mGycm COMPARISON: Prior study dated March 10, 2024. FINDINGS: Hardware: None Lymph nodes: Small benign-appearing mediastinal lymph nodes. These are unchanged. Heart and Vasculature: The heart is nonenlarged. Coronary Artery Calcifications: Present Lungs and Airways: Stable mild increased markings at the lung bases suggestive of scarring. Stable mild increased markings in the right temporal lobe suggestive of linear scarring. Pleura: No pleural effusion. Upper Abdomen: Status post cholecystectomy. Bones: Degenerative changes of the thoracic spine. CT/Chest without Contrast IMPRESSION: Coronary artery calcification (CAC) is is present Stable examination. No suspicious pulmonary nodule seen. Reading Location: [id number]
--- OUTSIDE RECORDS SUMMARY | 2024-12-16 22:41 | XMS RPT_ITS | CCD ---
Author Organization [facility] Inform ion Partnership [facility] Care Team Providers Care Lactation Consultant Name Role Phone SKYLA PORTILLO Unavailable Unavailable SKYLA PORTILLO Unavailable Unavailable REFERRING, EDVIN PÉREZ ID Unavailable Unavailable JUSTIN AMAYA-JOSHUA, ILENE Primary Care Physician Juliet Hidalgo PT Unavailable Unavailable LEROY QUALITY ANALYST/TECHNICAL WRITER-JOSHUA, MARCOS Primary Care Physician [phone] Justin DIE CASTING SUPERVISOR, DIE CASTING SUPERVISOR-C Ilene Referring Provider Dr. Fco Aguilera Attending Provider [phone] Leroy DIE CASTING SUPERVISOR, DIE CASTING SUPERVISOR-C Marcos Primary Care Provider [phone] LEROY QUALITY ANALYST/TECHNICAL WRITER-JOSHUA, MARCOS Primary Care Physician [phone] BALTES QUALITY ANALYST/TECHNICAL WRITER-CAREER DISCOVERY TEACHER, MARCOS Primary Care Unavailabl e BALTES QUALITY ANALYST/TECHNICAL WRITER-CAREER DISCOVERY TEACHER, MARCOS Attending Unavailabl e BALTES QUALITY ANALYST/TECHNICAL WRITER-CAREER DISCOVERY TEACHER, MARCOS Primary Care Unavailabl e BALTES QUALITY ANALYST/TECHNICAL WRITER-CAREER DISCOVERY TEACHER, MARCOS Attending Unavailabl e BALTES QUALITY ANALYST/TECHNICAL WRITER-CAREER DISCOVERY TEACHER, MARCOS Attending Unavailabl e BALTES QUALITY ANALYST/TECHNICAL WRITER-CAREER DISCOVERY TEACHER, MARCOS Primary Care Unavailabl e BALTES QUALITY ANALYST/TECHNICAL WRITER-CAREER DISCOVERY TEACHER, MARCOS Primary Care Unavailabl e BALTES QUALITY ANALYST/TECHNICAL WRITER-CAREER DISCOVERY TEACHER, MARCOS Attending Unavailabl e BALTES QUALITY ANALYST/TECHNICAL WRITER-CAREER DISCOVERY TEACHER, MARCOS Primary Care Unavailabl e BALTES QUALITY ANALYST/TECHNICAL WRITER-CAREER DISCOVERY TEACHER, MARCOS Attending Unavailabl e BALTES QUALITY ANALYST/TECHNICAL WRITER-CAREER DISCOVERY TEACHER, MARCOS Primary Care Unavailabl e BALTES QUALITY ANALYST/TECHNICAL WRITER-CAREER DISCOVERY TEACHER, MARCOS Attending Unavailabl e BALTES QUALITY ANALYST/TECHNICAL WRITER-CAREER DISCOVERY TEACHER, MARCOS Primary Care Unavailabl e BALTES QUALITY ANALYST/TECHNICAL WRITER-CAREER DISCOVERY TEACHER, MARCOS Attending Unavailabl e BALTES QUALITY ANALYST/TECHNICAL WRITER-CAREER DISCOVERY TEACHER, MARCOS Attending Unavailabl e BALTES QUALITY ANALYST/TECHNICAL WRITER-CAREER DISCOVERY TEACHER, MARCOS Primary Care Unavailabl e JENNIFER CABELLO DO Attending Unavailable BALTES QUALITY ANALYST/TECHNICAL WRITER-CAREER DISCOVERY TEACHER, MARCOS Primary Care Unavailabl e Baltes DIE CASTING SUPERVISOR-C, Marcos Primary Care Provider Leroy DIE CASTING SUPERVISOR-C, Marcos Referring Provider 1([facility])[phone] Maikel Ramirez Attending Provider [phone] Maikel Ramirez Referring Provider 1([facility])- [phone] Gonsalo BULLARD, Dr. Jovany Armas Primary Care Provider 1([facility] )[phone] Willy BULLARD, Dr. Eagle Attending Provider 1([facility]) -[phone] Gonsalo BULLARD, Dr. Jovany Armas Attending Provider 1([facility])[phone] Gonsalo BULLARD, Dr. Jovany Armas Referring Provider KAPPER QUALITY ANALYST/TECHNICAL WRITER-CAREER DISCOVERY TEACHER, JULIET M Admitting Unavaila ble PHYSICIAN, NONE Primary Care Unavailable CHRIS BULLARD, IFEANYI Attending Unavailable BALTES QUALITY ANALYST/TECHNICAL WRITER-CAREER DISCOVERY TEACHER, MARCOS Attending Unavailabl e PHYSICIAN, NONE Primary Care Unavailable CRISTEL QUALITY ANALYST/TECHNICAL WRITER-DIRECTOR FAMILY, SONAM L Attending Unavail able BALTES QUALITY ANALYST/TECHNICAL WRITER-CAREER DISCOVERY TEACHER, MARCOS Primary Care Unavailabl e BALTES QUALITY ANALYST/TECHNICAL WRITER-CAREER DISCOVERY TEACHER, MARCOS Attending Unavailabl e BALTES QUALITY ANALYST/TECHNICAL WRITER-CAREER DISCOVERY TEACHER, MARCOS Primary Care Unavailabl e BALTES QUALITY ANALYST/TECHNICAL WRITER-CAREER DISCOVERY TEACHER, MARCOS Attending Unavailabl e BALTES QUALITY ANALYST/TECHNICAL WRITER-CAREER DISCOVERY TEACHER, MARCOS Primary Care Unavailabl e Willy BULLARD, Dr. Eagle Referring Provider 1([facility]) -[phone] Maikel Ramirez Other Provider 1([facility])-[phone] Hira Mathias DO Other Provider 1([facility])[phone] Fco Aguilera MD Other Provider 1([facility])[phone] Bryan Hernández MD Attending Provider 1([facility])[phone] Dr. Margarita Levy MD Attending Provider 1([facility])[phone] Dr. Margarita Levy MD Other Provider 1([facility])[phone] Fco Aguilera MD Referring Provider 1([facility]) -[phone] Maikel Ramirez Other Provider 1([facility])[phone] Hira Mathias DO Other Provider 1([facility])[phone] Bryan Hernández MD Admit Provider 1([facility])[phone] Hira Mathias DO Attending Provider 1([facility])[phone] NoRoma isabel Attending Provider Unavailable Jovany Brush Chi Referring Unavailable Gonsalo, Jovany Chi Primary Care Unavailable Demiter, Maikel Attending Unavailable Baltes DIE CASTING SUPERVISOR, Marcos Primary Care Unavailable Baltes DIE CASTING SUPERVISOR, Marcos Referring Unavailable Demiter, Maikel Attending Unavailable Gonsalo, Jovany Chi Primary Care Unavailable Baltes DIE CASTING SUPERVISOR, Marcos Referring Unavailable Demiter, Maikel Attending Unavailable Willy, Logan Referring Unavailable Belal, Fark Attending Unavailable Gonsalo, Jovany Chi Primary Care Unavailable Demiter, Maikel Consulting Unavailable Willy, Fco Consulting Unavailable Baltes DIE CASTING SUPERVISOR, Marcos Primary Care Unavailable Demiter, Maikel Attending Unavailable Demiter, Maikel Referring Unavailable Gonsalo, Jovany Chi Attending Unavailable Gonsalo, Jovany Chi Referring Unavailable Gonsalo, Jovany Chi Primary Care Unavailable Gonsalo, Jovany Chi Primary Care Unavailable Demiter, Maikel Referring Unavailable Demiter, Maikel Attending Unavailable Gonsalo, Jovany Chi Attending Unavailable Gonsalo, Jovany Chi Referring Unavailable Gonsalo, Jovany Chi Primary Care Unavailable Gonsalo, Jovany Chi Primary Care Unavailable Demiter, Maikel Referring Unavailable Demiter, Maikel Attending Unavailable Gonsalo, Jovany Chi Referring Unavailable Gonsalo, Jovany Chi Primary Care Unavailable Gonsalo, Jovany Chi Attending Unavailable Willy, Fco Referring Unavailable Gonsalo, Jovany Chi Primary Care Unavailable Demiter, Maikel Consulting Unavailable Levy, Margarita Attending Unavailable Levy, Margarita Consulting Unavailable Willy, Logan Consulting Unavailable Willy, Logan Referring Unavailable Gonsalo, Jovany Chi Primary Care Unavailable Willy, Fco Attending Unavailable Demiter, Maikel Consulting Unavailable Jopperi, Hira Consulting Unavailable Willy, Logan Consulting Unavailable Willy, Logan Referring Unavailable [facility] Ad[facility] Unavailable Gonsalo, Jovany Chi Primary Care Unavailable Jopperi, Hira Attending Unavailable Demiter, Maikel Consulting Unavailable Jopperi, Hira Consulting Unavailable Willy, Logan Consulting Unavailable Willy, Fco Attending Unavailable Gonsalo, Jovany Chi Primary Care Unavailable Willy, Logan Attending Unavailable Gonsalo, Jovany Chi Primary Care Unavailable Nolt Roma Attending Unavailable Gonsalo, Jovany Chi Primary Care Unavailable Willy, Logan Attending Unavailable Demiter, Maikel Referring Unavailable Gonsalo, Jovany Chi Primary Care Unavailable Demiter, Maikel Referring Unavailable Demiter, Maikel Attending Unavailable SibiliaBreanne V Attending Unavailable SibiliaBreanne V Referring Unavailable Baltes DIE CASTING SUPERVISOR, Marcos Primary Care Unavailable Gonsalo, Jovany Chi Referring Unavailable Gonsalo, Jovany Chi Primary Care Unavailable Gonsalo, Jovany Chi Attending Unavailable Breanne Mejia V Attending Unavailable Breanne Mejia V Referring Unavailable Gonsalo, Jovany Chi Primary Care Unavailable Willy, Logan Referring Unavailable Bryan Hernández Admitting Unavailable Gonsalo, Jovany Chi Primary Care Unavailable Willy, Fco Attending Unavailable Maikel Liang Consulting Unavailable Hira Mathias Consulting Unavailable Dr. Breanne Mejia MD, V Attending Provider [phone] Dr. Breanne Mejia MD, V Referring Provider [phone] Allergies Allergy Classification Reported Allergen(s) Allergy Type Date of Onset Reaction(s) Facility (16 sources) bacitracin / neomycin / polymyxin b; Translations: [bacitracin/neom ycin/polymyxin B topical] Drug Allergy UNSURE [facility] (20 sources) Codeine; Translations: [codeine] Drug Allergy 2 DIFFICULTY BREATHING, HEART RATE IRREGULAR [facility] (16 sources) Isosorbide; Translations: [isosorbide mononitrate] Drug Allergy Headache (finding) [facility] (16 sources) rivaroxaban; Translations: [rivaroxaban] Drug Allergy BLEEDING [facility] (12 sources) rivaroxaban Drug Allergy 2 Bleeding [facility] (1 source) Codeine Drug Allergy 5 [facility] Rep[facility] (1 source) rivaroxaban Drug Allergy 5 [facility] (1 source) Ticagrelor Drug Allergy 5 SOB [facility] Medications Current Medications Medication Drug Class(es) Dates Sig (Normalized) Sig (Original) acetaminophen 500 mg oral tablet (3 sources) Start: 01-20-2024 acetaminophen 500 mg oral tablet Dose : 1,000 mg = 2 tab(s), Oral, TID, PRN pain or fever, 0 Refill(s) Start Date: 01/20/24 Status: Ordered [id number] 200 actuat albuterol 0.09 mg/actuat metered dose inhaler (10 sources) beta2-Adrenergic Agonist Start: 10-31-2023 Albuterol Sulfate [...] QID, # 360 mL, 0 Refill(s), Pharmacy: [facility], 182, cm, 04/11/21 11:58:00 EST, Height, kg, 04/11/21 11:58:00 EST, Dosing Weight Start Date: 07/02/21 Status: Ordered Start: 07-02-2021 take 1 dose by inhal ation four times daily albuterol-ipratropium 2.5 mg-0.5 mg/3 mL inhalation solution Dose = 3 mL, Inhalation, QID, # 360 mL, 0 Refill(s), Pharmacy: [facility], 182, cm, 04/11/21 11:58:00 EST, Height, kg, 04/11/21 11:58:00 EST, Dosing Weight Start Date: 07/02/21 Status: Ordered Start: 02-15-2021 take 1 dose by inhal ation four times daily albuterol-ipratropium 2.5 mg-0.5 mg/3 mL inhalation solution Dose = 3 mL, Inhalation, QID, # 360 mL, 0 Refill(s), Pharmacy: [facility], 182, cm, 11/20/20 9:32:00 [...] wheezing, # 18 gram(s), 0 Refill(s), Pharmacy: [facility], 178, cm, 01/20/24 10:44:00 EDT, Height, kg, 01/20/24 10:34:00 EDT, Dosing Weight Start Date: 01/24/24 Status: Ordered Start: 12-16-2023 take 1 puff(s) by in halation every four hours as needed for wheezing albuterol MDI (90 mcg/inh) CFC free inhalation aerosol 1 puff(s), Inhalation, q4h, PRN as needed for wheezing, # 18 gram(s), 0 Refill(s), Pharmacy: [facility], 177.8, cm, 09/09/23 10:25:00 EDT, Height, kg, 09/09/23 10:25:00 EDT, Dosing Weight Start Date: 12/16/23 Status: Ordered Start: 06-04-2023 take 1 puff(s) by in halation every four hours as needed for wheezing albuterol MDI (90 mcg/inh) CFC free inhalation aerosol 1 puff(s), Inhalation, q4h, PRN as needed for wheezing, # 18 gram(s), 5 Refill(s), [facility]: [id number], 182.9, cm, 06/04/23 8:38:00 EST, Height, kg, 06/04/23 8:38:00 EST, Dosing Weight Start Date: 06/04/23 Status: Ordered amLODIPine 10 mg oral tablet (20 sources) Dihydropyridine Calcium Channel Zuly Start: 12-16-2024 take 1 tablet by mouth once daily Amlodipine 10 mg tablet Active 10 mg PO daily December 16, 2024 12:00am Start: 09-21-2024 End: 11-05-2024 take 5 mg [...] 06, 2021 9:42am Check with primary doctor apixaban 5 mg oral tablet (20 sources) [...] 02, 2020 4:05pm July 03, 2021 11:02am aspirin 81 mg delayed release oral tablet (19 sources) Platelet Aggregation Inhibitor, Nonsteroidal Anti-inflammatory Drug Start: 12-01-2024 take 1 tablet by mouth at breakfast Aspirin 81 mg Tablet,Delayed Release (Dr/Ec) Active 81 mg PO WITH BREAKFAST 0 0 December 01, 2024 12:00am Start: 02-11-2018 End: 06-02-2020 take 1 tablet by mouth once daily Aspirin (Adult Aspirin Regimen) 81 mg tablet,delayed release (DR/EC) Discontinued 81 mg PO DAILY May 08, 2018 1:00am June 02, 2020 10:26am Heart/Stroke Prevention Start: 02-11-2018 aspirin 81 mg oral delayed release tablet Dose : 81 mg = 1 tab(s), Oral, BID, # 60 tab(s), 0 Refill(s), Pharmacy: [address] Start Date: 02/11/18 Status: Ordered atorvastatin 40 mg oral tablet (6 sources) HMG-CoA Reductase Inhibitor Start: 09-17-2024 take 1 tablet by mouth at bedtime Atorvastatin 40 mg tablet Active 40 mg PO AT BEDTIME September 17, 2024 12:00am Pepto-bismol (7 sources) Bismuth Start: 09-09-2023 Pepto-Bismol PRN as needed, 0 Refill(s) Start Date: 09/09/23 Status: Ordered Budesonide-Glycopyr -Formoterol (6 sources) Corticosteroid, beta2-Adrenergi c Agonist Start: 09-17-2024 Budesonide-Glycopy r-Formoterol (Breztri Aerosphere) 160-9-4.8 mcg/actuation HFA aerosol inhaler Active 2 NMA INHALATION TWICE A DAY September 17, 2024 12:00am 168 hr buprenorphine 0.02 mg/hr transdermal system (6 sources) Partial Opioid Agonist Start: 09-17-2024 apply [...] 0 Refill(s) Start Date: 01/27/18 Status: Ordered clopidogrel 75 mg oral tablet (16 sources) P2Y12 Platelet Inhibitor Start: 12-03-2024 End: 12-03-2024 Clopidogrel 75 mg tablet Active 75 mg PO daily 94 December 03, 2024 3:50pm Take 4 tablets on day 1, then 1 tablet daily thereafter. Start: 06-12-2020 End: 06-26-2020 take 1 tablet by mouth once daily Clopidogrel (Plavix) 75 mg tablet Discontinued 75 mg PO DAILY 30 June 12, 2020 1:00am June 26, 2020 12:20pm doxycycline hyclate 100 mg oral capsule (1 source) Tetracycline-class Drug Start: 07-24-2021 End: 08-03-2021 doxycycline hyclate 100 mg oral capsule Dose : 100 mg = 1 cap(s), Oral, BID, X 10 day(s), # 20 cap(s), 0 Refill(s), 08/03/21 10:58:00 EST, Pharmacy: [facility] [address] 181.5, cm, 07/24/21 10:18:00 EST, [...] primary doctor empagliflozin 10 mg oral tablet (5 sources) Sodium-Glucose Cotransporter 2 Inhibitor Start: 10-27-2024 take 1 tablet by mouth once daily in the morning Empagliflozin (Jardiance) 10 mg tablet Active 10 mg PO EVERY MORNING 30 October 27, 2024 12:00am fexofenadine hydrochloride 180 mg oral tablet (19 sources) Histamine-1 Receptor Antagonist Start: 08-20-2024 take 1 tablet by mouth every twenty-four hours Fexofenadine 180 mg tablet Active 180 mg PO Q24H August 20, 2024 12:00am Start: 02-19-2021 [place] 24 Sujata r Allergy oral tablet Dose : 180 mg = 1 tab(s), Oral, Daily, # 30 tab(s), 0 Refill(s), Pharmacy: [facility] [address] 182.5, cm, 02/19/21 9:32:00 EDT, Height, kg, 02/19/21 9:32:00 EDT, Dosing Weight Start Date: 02/19/21 Status: Ordered finasteride 5 mg oral tablet (20 sources) 5-alpha Reductase Inhibitor Start: 12-16-2024 take 1 tablet by mouth once daily Finasteride 5 mg tablet Active 5 mg PO daily December 16, 2024 12:00am Start: 02-29-2020 End: 09-17-2024 take 1 tablet by mouth once daily Finasteride 5 MG tablet Discontinued 5 mg PO DAILY February 29, 2020 12:00am September 17, 2024 11:16am Check with primary doctor Rhjczinrusw-Dpkvhhdev-Usrogy er (12 sources) Anticholinergic, Corticosteroid, beta2-Adrenergic Agonist Start: 09-06-2021 Hvoeaqverww-Mnbelhwnh-Aglmlf er 100-62.5-25 mcg blister with device Active 1 [...] tablet Discontinued 40 mg PO .COMPLEX 31 6 September 19, 2021 12:00am October 04, 2021 [...] BID, # 180 cap(s), 1 Refill(s), Pharmacy: [facility], Neuropathic pain, 181.5, cm, [...] lactobacillus combination no.9 (Adult 50 Plus Probiotic) (6 sources) Start: 09-17-2024 lactobacillus combination no.9 (Adult 50 Plus Probiotic) Active PO DAILY September 17, 2024 12:00am magnesium oxide 400 mg oral tablet (20 sources) Start: 12-23-2023 magnesium oxid e 400 mg oral tablet Dose : 400 mg = 1 tab(s), Oral, Daily, # 90 tab(s), 0 Refill(s), Pharmacy: [facility], 177.8, cm, [...] tab(s), 3 Refill(s), 08/22/22 11:06:00 EDT, Pharmacy: [facility], 181, cm, 08/20/21 8:43:00 [...] 50 mg oral tablet (20 sources) beta-Adrenergic Zuly Start: 07-23-2023 take 1 tablet by mouth [...] 07-17-2023 take 50 mg by mouth twice stephany y Metoprolol Succinate Active 50 MG PO [...] BID, # 60 tab(s), 11 Refill(s), Pharmacy: [facility], 182, cm, 11/20/20 9:32:00 [...] 12, 2020 2:54pm Check with primary doctor multivitamin,yg-cdve-udtlgaw s tablet (2 sources) Start: 05-08-2018 take 1 tablet by mouth once daily multivitamin,kq-tlbw-sghxwula tablet Active 1 TABLET PO DAILY May 08, 2018 1:00am 24 hr nicotine 0.583 mg/hr transdermal system (5 sources) Chol iner gic Sajan brandon Talley ist Start: 01-20-2024 apply 1 dose [...] day(s), # 30 patch(es), 0 Refill(s), [facility]: [id number], Tobacco use, 177.8, cm, 09/09/23 10:25:00 EDT, Height, kg, 09/09/23 10:25:00 EDT, Dosing Weight Start Date: 09/10/23 Stop Date: 10/10/23 Status: Ordered omeprazole 40 mg delayed release oral capsule (20 sources) Proton Pump Inhibitor Start: 12-16-2024 Omeprazole 40 mg capsule,delayed release(DR/EC) Active 20 mg PO TWICE A DAY December 16, 2024 1:54pm Start: 07-23-2023 End: 12-16-2024 take 1 capsule by mouth twice daily Omeprazole 40 mg capsule,delayed release(DR/EC) Discontinued 40 mg PO TWICE A DAY October 31, 2023 12:00am December 16, 2024 1:56pm Start: 07-17-2023 End: 10-31-2023 take 2 capsules [...] BID, # 180 cap(s), 3 Refill(s), Pharmacy: [facility], GERD (gastroesophageal reflux disease), [...] primary doctor ondansetron 4 mg oral tablet (20 sources) Serotonin-3 Receptor Antagonist Start: 07-17-2023 take [...] Refill(s), 09/17/22 12:29:00 EDT, [facility]acy: [facility] #[id number], Nausea, 180.3, cm, 08/27/22 11:39:00 EDT, Height Start Date: 08/28/22 Stop Date: 09/17/22 Status: Ordered Start: 07-15-2022 Zofran 4 mg or al tablet Dose : 4 mg = 1 tab(s), Oral, q6h, PRN Nausea/Vomiting, 0 Refill(s) Start Date: 07/15/22 Status: Ordered potassium gluconate 2.35 meq oral tablet (1 source) Start: 12-16-2024 take 1 tablet by mouth once daily Potassium Gluconate 550 mg (90 mg) tablet Active 550 mg PO daily December 16, 2024 12:00am pregabalin 50 mg oral capsule (11 sources) Start: 12-16-2024 take 1 capsule by mouth once daily Pregabalin (Lyrica) 50 mg capsule Active 50 mg PO daily December 16, 2024 1:56pm Start: 08-20-2024 End: 12-16-2024 take 1 capsule by mouth twice daily Pregabalin (Lyrica) 50 mg capsule Discontinued 50 mg PO TWICE A DAY August 20, 2024 12:00am December 16, 2024 1:56pm spironolactone 25 mg oral tablet (6 sources) Aldosterone Antagonist Start: 09-21-2024 take 1 tablet by mouth once daily Spironolactone 25 mg tablet Active 25 mg PO daily 30 September 21, 2024 12:00am sucralfate 1000 mg oral tablet (7 sources) Aluminum Complex Start: 12-16-2024 take 1 tablet by mouth twice daily Sucralfate 1 gram tablet Active 1 g PO TWICE A DAY December 16, 2024 1:54pm Start: 09-17-2024 End: 12-16-2024 Sucralfate 1 gram tablet Dis continued PO September 17, 2024 12:00am December 16, 2024 1:56pm tadalafil 20 mg oral tablet (4 sources) [...] tab(s), 0 Refill(s), 10/08/22 11:41:00 EDT, [facility]: [id number], Onychomycosis, 180.3, cm, 08/27/22 11:39:00 EDT, Height Start Date: 08/27/22 Stop Date: 10/08/22 Status: Ordered traZODone hydrochloride 50 mg oral tablet (16 sources) Serotonin Reuptake Inhibitor Start: 12-28-2018 traZODone [...] swallow)., # 3 EA, 3 Refill(s), Pharmacy: [facility], 180.3, cm, 10/10/22 10:34:00 [...] swallow)., # 1 EA, 3 Refill(s), Pharmacy: [facility] ([facility]), 182, cm... Start Date: 01/03/22 Stop Date: 05/03/22 Status: Ordered Start: 07-24-2021 End: 11-21-2021 take 1 dose by mouth once daily Trelegy Ellipta 100 mcg-62.5 mcg-25 mcg/inh inhalation powder Dose = 1 puff(s), Inhalation, qDay, at the same time every day. Following administration, rinse mouth with water after use (do not swallow)., # 1 EA, 3 Refill(s), Pharmacy: [facility], 181.5, cm, 07/24/21 10:18:00 EST, Height, kg, 0... Start Date: 07/24/21 Stop Date: 11/21/21 Status: Ordered Completed/Discontinued Medications Medication Drug Class(es) Dates Sig (Normalized) Sig (Original) acetaminophen 325 mg / HYDROcodone bitartrate 5 mg oral tablet (20 sources) Opioid Agonist Start: 03-29-2020 End: 04-05-2020 [...] 1 EACH PO EVERY 4 HOURS NEEDED 7 March 29, 2020 April 05, 2020 [...] 06, 2018 1:00am July 09, 2018 1:08am baclofen 10 mg oral tablet (20 sources) gamma-Aminobutyric Acid-ergic Agonist Start: 11-06-2021 End: 09-17-2024 take 1 tablet by mouth twice daily Baclofen 10 mg tablet Discontinued 10 mg PO TWICE A DAY April 25, 2022 1:00am September 17, 2024 11:18am Start: 01-17-2021 baclofen 10 mg oral tablet Dose : 30 mg = 3 tab(s), Oral, Daily, 1 in am, 2 in pm, # 270 tab(s), 3 Refill(s), Pharmacy: [facility], 182, cm, 11/20/20 9:32:00 EDT, Height, kg, 11/20/20 9:32:00 EDT, Dosing Weight Start Date: 01/17/21 Status: Ordered ciprofloxacin 500 mg oral tablet (20 sources) Quinolone Antimicrobial Start: 08-09-2020 End: 12-11-2020 [...] 29, 2020 1:00am June 02, 2020 9:57am dapagliflozin 10 mg oral tablet (20 sources) Sodium-Glucose Cotransporter 2 Inhibitor Start: 09-01-2024 [...] BID, # 100 gram(s), 3 Refill(s), Pharmacy: [facility], 181.3, cm, 12/13/19 9:41:00 EDT, Height, 93.2, kg, 07/03/20 9:57:00 EST, Dosing Weight Start Date: 07/12/20 Stop Date: 07/07/21 Status: Ordered Start: 07-12-2020 End: 07-07-2021 diclofenac 3% topical gel Ap ply 1 herb, Topical, BID, # 100 gram(s), 3 Refill(s), Pharmacy: [facility], 181.3, cm, 12/13/19 9:41:00 EDT, Height, 93.2, kg, 07/03/20 9:57:00 EST, Dosing Weight Start Date: 07/12/20 Stop Date: 07/07/21 Status: Ordered fluticasone propionate 0.05 mg/actuat metered dose nasal spray (17 sources) Corticosteroid Start: 12-12-2023 End: 01-11-2024 take [...] BID, # 16 gram(s), 0 Refill(s), Pharmacy: [facility] #[id number], Rhinitis, 177.8, cm, 09/09/23 10:25:00 EDT, Height, [...] 24 hr Discontinued 30 mg PO DAILY 22 11August 11, 2023 8:06am August 30, 2024 11:06am ammonium lactate 120 mg/ml topical cream (13 sources) Start: 08-20-2021 End: 10-15-2021 ammonium lactate 12% topical cream Apply 1 herb, Topical, BID, # 385 gram(s), 3 Refill(s), Pharmacy: [facility], Cream, 181, cm, 08/20/21 [...] 20mg, # 60 tab(s), 0 Refill(s), [facility]: [facility] #[id number], Hypertension, 180.3, cm, 07/16/22 10:11:00 EST, Height [...] primary doctor metoclopramide 5 mg oral tablet (20 sources) Dopamine-2 Receptor Antagonist Start: 10-31-2023 End: [...] Daily, # 55 gram(s), 1 Refill(s), Pharmacy: [facility] #[id number], Gel, 180.3, cm, 08/27/22 11:39:00 EDT, Height, 85.1 Start Date: 08/27/22 Stop Date: 10/26/22 Status: Ordered montelukast 10 mg oral tablet (20 sources) Leukotriene Receptor Antagonist Start: 05-08-2018 End: 07-17-2023 take 1 tablet by mouth once daily in the evening Montelukast 10 mg tablet Discontinued 10 mg PO EVERY EVENING May 08, 2018 1:00am July 17, 2023 4:57pm Check with primary doctor Multivitamin,Tx-Iro n-Minerals (Complete Multivitamin) tablet (10 sources) Start: 05-08-2018 End: 09-17-2024 Multivitamin,Tx-Ir on-Minerals (Complete Multivitamin) tablet Discontinued 1 {tbl} PO DAILY May 08, 2018 1:00am September 17, 2024 11:17am Check with primary doctor Start: 05-08-2018 End: 09-17-2024 Multivitamin,Fv-Gqcq-Wjgimxa s (Complete Multivitamin) tablet Discontinued 1 {tbl} PO DAILY May 08, 2018 1:00am September 17, 2024 11:17am Start: 05-08-2018 Multivitamin,T j-Sqnp-Wnyqsbci (Complete Multivitamin) tablet Active 1 {tbl} PO DAILY May 08, 2018 1:00am potassium chloride 10 meq extended release oral capsule (12 sources) Start: 05-08-2018 End: 06-02-2020 take 1 [...] doctor tamsulosin hydrochloride 0.4 mg oral capsule (20 sources) alpha-Adrenergic Zuly Start: 06-02-2020 End: 04-25-2022 take 1 capsule [...] 02, 2020 9:58am Check with primary doctor ticagrelor 90 mg oral tablet (3 sources) Start: 12-01-2024 End: 12-03-2024 take 1 tablet by mouth twice daily Ticagrelor (Brilinta) 90 mg Tablet Discontinued 90 mg PO TWICE A DAY 60 0 December 01, 2024 12:00am December 03, 2024 3:42pm triamterene 50 mg oral capsule (4 sources) Potassium-sparing Diuretic Start: 02-19-2021 End: 03-21-2021 triamterene 50 mg oral capsule Dose : 50 mg = 1 cap(s), Oral, qAM, # 30 cap(s), 0 Refill(s), [facility] [address] 182.5, cm, 02/19/21 9:32:00 [...] supply, # 100 tab(s), 3 Refill(s), Pharmacy: [facility], 182, cm, 04/11/21 11:58:00 [...] qDay, # 30 tab(s), 3 Refill(s), [facility] [address] 182.5, cm, 02/19/21 9:32:00 EDT, Height, kg, 02/19/21 9:32:00 EDT, Dosing Weight Start Date: 04/04/21 Status: Ordered Problems Active Problems Problem Classification Problem Date Documented Da te Episodic/Chronic Abdominal hernia (16 sources) Hiatal hernia 08-18-2017 Episodic Abdominal pain (14 sources) Abdominal pain; Translations: [Unspecified abdominal pain] Onset: 5 10-10-2022 Episodic Acute cerebrovascular disease (10 sources) Cerebrovascular accident; Translations: [Cerebral infarction, unspecified] Onset: 0 11-10-2016 Chronic Alcohol-related disorders (16 [...] Coronary atherosclerosis; Translations: [Atherosclerotic heart disease of [place] coronary artery without angina pectoris] Onset: 5 08-09-2020 Chronic Coronary atherosclerosis and other heart disease (8 sources) Stented coronary artery; Translations: [Presence of coronary angioplasty implant and graft] Onset: 5 11-30-2024 Episodic Comment on above: Dar Fisher 3.0 X 50 mm RODO to mid [...] failure] Onset: 5 Chronic Malaise and fatigue (14 sources) Fatigue; Translations: [Other fatigue] Onset: 5 [...] Osteoarthritis 08-18-2017 Chronic Other aftercare (2 sources) 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; Translations: [senior living (current) use of anticoagulants] Onset: 5 Episodic Other aftercare (2 sources) Encounter for therapeutic drug level monitoring; Translations: [Encounter for therapeutic drug level monitoring] Onset: 5 Episodic Other circulatory disease (12 sources) History of cerebrovascular accident; Translations: [Personal history of transient ischemic attack (TIA), and cerebral infarction without residual deficits] 08-09-2020 Episodic Other connective tissue disease (8 sources) Neuropathic pain 08-29-2022 Episodic Other connective tissue disease (8 sources) Spasm 08-29-2022 Episodic Other disorders of stomach and duodenum (14 sources) Gastroparesis syndrome; Translations: [Gastroparesis] 07-17-2023 Episodic Other eye disorders (7 sources) Dry eyes 09-10-2023 Episodic Other eye disorders (7 sources) 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 Other gastrointestinal disorders (4 sources) Irritable bowel syndrome characterized by constipation; Translations: [Irritable bowel syndrome with constipation] 01-20-2024 Chronic Other gastrointestinal disorders (10 sources) Dysphagia 07-16-2022 Episodic Other gastrointestinal disorders (1 source) Dysphagia, unspecified; Translations: [Dysphagia, unspecified] Onset: 5 Episodic Other inflammatory condition of skin (8 sources) Rosacea 08-29-2022 Chronic Other liver diseases (16 sources) Inflammatory disease of liver 08-18-2017 Chronic Comment on above: PT UNSURE WHICH TYPE Other liver diseases (16 sources) Elevated liver enzymes level 03-01-2019 Episodic Other lower respiratory disease (12 sources) Dyspnea on exertion; Translations: [Other forms of dyspnea] 09-05-2021 Episodic Other lower respiratory disease (20 sources) Dyspnea; Translations: [Dyspnea, unspecified] 09-06-2021 Episodic Other lower respiratory disease (2 sources) Dyspnea, unspecified; Translations: [Other respiratory abnormalities] Onset: 5 07-17-2023 Episodic Other lower respiratory disease (2 sources) Other forms of dyspnea; Translations: [Other forms of dyspnea] Onset: 5 Episodic Other male genital disorders (16 sources) [...] DOES NOT U SE Residual codes; unclassified (12 sources) Edema; Translations: [Edema, unspecified] 09-19-2021 Episodic Residual codes; unclassified (9 sources) Hallucinations 07-16-2022 Episodic Residual codes; unclassified (1 source) Tobacco use; Translations: [Tobacco use] Onset: 5 Episodic Spondylosis; intervertebral disc disorders; other back problems (17 sources) Backache; Translations: [Low back pain] 11-19-2020 Episodic Substance-related disorders (12 sources) Nicotine dependence; Translations: [Nicotine dependence, unspecified, uncomplicated] 08-09-2020 Chronic Syncope (20 sources) Near syncope; Translations: [Syncope and collapse] 09-05-2021 Episodic Transient cerebral ischemia (12 sources) Transient cerebral ischemia; Translations: [Transient cerebral ischemic attack, unspecified] 08-09-2020 Chronic Unclassified (1 source) Unknown / UNK(Unknown) Onset: Unclassified (16 sources) Catheter, device (physical object) 02-10-2020 Unclassified (10 sources) Polypharmacy 07-16-2022 Unclassified (4 sources) Presence of stent in coronary artery Unclassified (4 sources) Longstanding persistent atrial fibrillation Unclassified (4 sources) Multiple premature ventricular complexes Unclassified (4 sources) Z95.5 - Presence of coronary angioplasty implant and graft,I25.10 - Atherosclerotic heart disease of [place] coronary artery without angina pectoris,I48.11 - Longstanding persistent atrial fibrillation,I49.49 - Other premature depolarization Unclassified (1 source) Longstanding persistent atrial fibrillation; Translations: [Longstanding persistent atrial fibrillation] Onset: Past or Other Problems Problem Classification Problem [...] Test Name Value Interpretation Reference Range Facility Brain without Contraston Brain without Contrast [facility] Imaging Services [address] [place] [address] [id number] Brain without Contrast MR#: [id number] Acct: [id number] Name: ANGI JACKSON Rep #: [id number] : 1950 M 74 From: Breanne Rios PCP: Dr. Jovany Brush MD Status: REG CLI Study: Brain without Contrast Date of Exam: 12/08/24 Exam# [id number] Ordering Dr: Jovany Brush MD PROCEDURE: BRAIN WITHOUT CONTRAST 12/08/2024 REASON FOR EXAM: ISCHEMIC STROKE TECHNIQUE: BRAIN WITHOUT CONTRAST Multiplanar and multisequence images were obtained. COMPARISON: None FINDINGS: 12 mm focus of diffusion restriction along the left milligan radiata consistent with acute/subacute ischemia. Corresponding hyperintense FLAIR signal at this location. No other areas of diffusion restriction. No acute intracranial hemorrhage, midline shift or mass effect. No microhemorrhage noted. Moderate generalized cerebral atrophy. Minimal periventricular hyperintense FLAIR signal likely related to chronic small-vessel ischemic disease. No cortical edema. No significant hydrocephalus. Globes are intact. Paranasal sinuses and mastoid air cells are relatively clear. MRI/Brain without Contrast IMPRESSION: 1. Small area of acute/subacute ischemia in the left milligan radiata measuring 12 mm. 2. Atrophy and minimal chronic small-vessel ischemic disease. Reading Location: [facility] CC: Dr. Jovany Brush MD Infantry Officer: Signed Normal [facility] Magnetic resonance imaging r eportOrdered By: Breanne Schneider on 12-08-2024 Study report [facility] Imaging Services [address] [place] [address] [id number] Brain without Contrast MR#: [id number] Acct: [id number] Name: ANGI JACKSON Rep #: [id number] : 1950 M 74 From: Bryant Schneider DO PCP: Dr. Jovany Brush MD Status: REG C ÁNGELA Study:Brain without Contrast Date of Exam: 12/08/24 Exam# [id number] Ordering Dr: Jovany Brush MD PROCEDURE: BRAIN WITHOUT CONTRAST 12/08/2024 REASON FOR EXAM: ISCHEMIC STROKE TECHNIQUE: BRAIN WITHOUT CONTRAST Multiplanar and multisequence images were obtained. COMPARISON: None FINDINGS: 12 mm focus of diffusion restriction along the left milligan radiata consistent with acute/subacute ischemia. Corresponding hyperintense FLAIR signal at this location. No other areas of diffusion restriction. No acute intracranial hemorrhage, midline shift or mass effect. No microhemorrhage noted. Moderate generalized cerebral atrophy. Minimal periventricular hyperintense FLAIR signal likely related to chronic small-vessel ischemic disease. No cortical edema. No significant hydrocephalus. Globes are intact. Paranasal sinuses and mastoid air cells are relatively clear. MRI/Brain without Contrast IMPRESSION: 1. Small area of acute/subacute ischemia in the left milligan radiata measuring 12mm. 2. Atrophy and minimal chronic small-vessel ischemic disease. Reading Location: [facility] CC: Dr. Jovany Brush MD ~ Infantry Officer: Signed [facility] 12 Lead EKGon 12-01-2024 12 Lead EKG [facility] Cardiovascular Services [address] [place] [address] 12 Lead EKG 12/01/24 0510 MR#: [id number] Acct: [id number] Name: ANGI JACKSON Rep #: [id number] : 1950 74 From: Fco Aguilera MD Attending Dr: Dr. Fco Aguilera MD Status: DIS I N Ordering Dr: Bryan Hernández MD Date: 12/01/24 Location: ICU Sex: M C Admitted: 11/29/24 Test Reason : PCI Blood Pressure : */* mmHG Vent. Rate : 56 BPM Atrial Rate : * BPM P-R Int : * ms QRS Dur : 76 ms QT Int : 434 ms P-R-T Axes : * -47 54 degrees QTcB Int : 418 ms Atrial fibrillation with slow ventricular response with premature ventricular or aberrantly conducted complexes Left axis deviation Pulmonary disease pattern Abnormal ECG When compared with ECG of 30-Nov-2024 05:14, MANUAL COMPARISON REQUIRED DATA IS UNCONFIRMED Confirmed by WILLY BULLARD, FCO ([id number]), city editor DAPHNE PINEDA ([id number]) on 12/02/2024 6:42:49 AM Referred By: Fco Aguilera Confirmed By: FCO AGUILERA MD 12/02/24 0642 Date Fco Aguilera MD CC: Dr. Fco Aguilera MD; Dr. Bryan Hernández MD; Dr. Jovany Brush MD Signed Normal [facility] Electrocardiogram reportOrde red By: Fco Aguilera on 12-01-2024 EKG study [facility] Cardiovascular Services [address] [place] [address] 12 Lead EKG 11/29/24 1233 MR#: [id number] Acct: [id number] Name: ANGI JACKSON Rep #:[id number] : 1950 74 From: Fco Aguilera MD Attending Dr: Dr. Fco Aguilera MD S tatus: ADM IN Ordering Dr: Bryan Hernández MD Date: Location: ICU Sex: M C Admitted: 11/29/24 Test Reason : Blood Pressure : */* mmHG Vent. Rate : 67 BPM Atrial Rate : * BPM P-R Int : * ms QRS Dur : 78 ms QT Int : 420 ms P-R-T Axes : * -47 31 degrees QTcB Int : 443 ms Atrial fibrillation Left axis deviation Pulmonary disease pattern Abnormal ECG When compared with ECG of 10-Aug-2020 00:16, No significant change was found Confirmed by WILLY BULLARD, FCO ([id number]), city editor DAPHNE PINEDA ([id number]) on 12/01/2024 7:17:28 AM Referred By: Fco Aguilera Confirmed By: FCO AGUILERA MD 12/01/24 0717 Date _ Fco Aguilera MD CC: Dr. Fco Aguilera MD; Dr. Bryan Hernández MD; Dr. Jovany Brush MD ~ Signed [facility] Work Phone: EKG study [facility] Cardiovascular Services [address] [place] [address] 12 Lead EKG 11/30/24 0514 MR#: [id number] Acct: [id number] Name: NATANAEL JACKSONALANNAH ISSAC Rep #:[id number] : 1950 74 From: Fco Aguilera MD Attending Dr: Dr. Fco Aguilera MD S tatus: ADM IN Ordering Dr: Bryan Hernández MD Date: Location: ICU Sex: M C Admitted: 11/29/24 Test Reason : Post PCI Blood Pressure : */* mmHG Vent. Rate : 62 BPM Atrial Rate : * BPM P-R Int : * ms QRS Dur : 76 ms QT Int : 438 ms P-R-T Axes : * -50 46 degrees QTcB Int : 444 ms Atrial fibrillation with premature ventricular or aberrantly conducted complexes Left axis deviation Pulmonary disease pattern Abnormal ECG When compared with ECG of 29-Nov-2024 12:33, MANUAL COMPARISON REQUIRED DATA IS UNCONFIRMED Confirmed by WILLY BULLARD, FCO ([id number]), city editor DAPHNE PINEDA ([id number]) on 12/01/2024 7:17:45 AM Referred By: Fco Aguilera Confirmed By: FCO AGUILERA MD 12/01/24 0717 Date _ Fco Aguilera MD CC: Dr. Fco Aguilera MD; Dr. Bryan Hernández MD; Dr. Jovany Brush MD ~ Signed [facility] Work Phone: 12 Lead EKGon 11-30-2024 12 Lead EKG [facility] Cardiovascular Services [address] [place] [address] 12 Lead EKG 11/30/24 0514 MR#: [id number] Acct: [id number] Name: ANGI JACKSON Rep #: [id number] : 1950 74 From: Fco Aguilera MD Attending Dr: Dr. Fco Aguilera MD Status: ADM I N Ordering Dr: Bryan Hernández MD Date: 11/30/24 Location: ICU Sex: M C Admitted: 11/29/24 Test Reason : Post PCI Blood Pressure : */* mmHG Vent. Rate : 62 BPM Atrial Rate : * BPM P-R Int : * ms QRS Dur : 76 ms QT Int : 438 ms P-R-T Axes : * -50 46 degrees QTcB Int : 444 ms Atrial fibrillation with premature ventricular or aberrantly conducted complexes Left axis deviation Pulmonary disease pattern Abnormal ECG When compared with ECG of 29-Nov-2024 12:33, MANUAL COMPARISON REQUIRED DATA IS UNCONFIRMED Confirmed by FCO AGUILERA MD ([id number]), city editor DAPHNE PINEDA ([id number]) on 12/01/2024 7:17:45 AM Referred By: Fco Aguilera Confirmed By: FCO AGUILERA MD 12/01/24 0717 Date Fco Aguilera MD CC: Dr. Fco Aguilera MD; Dr. Bryan Hernández MD; Dr. Jovany Brush MD Signed [facility] Abd Decub and/or Erect(Martha blon 11-30-2024 Abd Decub and/or Erect([facility] Imaging Services [address] [place] [address] Abd [facility] [id number] Acct: [id number] Name: ANGI JACKSON Rep #: [id number] : 1950 M 74 From: Gregg canseco MD PCP: Dr. Jovany Brush MD Status: ADM IN Study: Abd Decub and/or Erect(Portabl Date of Exam: 0 11/30/24 Exam# [id number] Ordering Dr: Hira Mathias DO PROCEDURE: ABD DECUB AND/OR ERECT(PORTABL 11/30/2024 REASON FOR EXAM: ABD PAIN/NAUSEA TECHNIQUE: ABD DECUB AND/OR ERECT(PORTABL COMPARISON: None FINDINGS: Bowel gas: Moderate constipation identified with fecal material distributed throughout the colon. No evidence of bowel obstruction. Calcifications: No suspicious calcifications. Bones: Degenerative changes of sacroiliac joints. Status post bilateral total hip replacement. Other: Status post cholecystectomy. RAD/Abd Decub and/or Erect(Portabl IMPRESSION: Moderate amount of fecal material is seen in the colon. Reading Location: [place] [address] CC: Dr. Hira Mathias DO; Dr. Jovany Brush MD Infantry Officer: Signed Normal [facility] Absolute lymphocyte countOrd ered By: Margarita Levy on 11-30-2024 Lymphocytes Auto (Unsp spec) [#/Vol] 1.40 10*3/uL 0.83-4.51 [facility] Absolute neutrophil countOrd ered By: Margarita Levy on 11-30-2024 Neutrophils (Bld) [#/Vol] 13.3 10*3/uL High 2.0-7.7 [facility] Anion gap in Serum or Plasma Ordered By: Bryan Hernández on 11-30-2024 Anion gap [Moles/Vol] 11 mmol/L 5-15 [facility] Automated lymphocyte count a s percentage of total leukocytesOrdered By: Margarita Levy on 11-30-2024 Lymphocytes/100 WBC Auto (Unsp spec) 8.7 % Low 19-41 [facility] BUN/creatinine ratioOrdered By: Bryan Hernández on 11-30-2024 Urea nitrogen/Creatinine [Mass ratio] 21.3 mg/mg High 10-20 [facility] Basophil percentageOrdered B y: Margarita Levy on 11-30-2024 Basophils/100 WBC (Bld) 0.5 % 0-1 [facility] Bedside Glucoseon 11-30-2024 FINGERSTICK GLU 163 mg/dL High 74-106 [facility] Comment on above: Result Comment: PETEY GEMENT OF PATIENT CARE PER NURSING PROTOCOL Performed By: #### L 501.080 #### [facility] Laboratory [address] [facility] [phone]) FINGERSTICK GLU 155 mg/dL High 74-106 [facility] Comment on above: Result Comment: PETEY GEMENT OF PATIENT CARE PER NURSING PROTOCOL Performed By: #### L 501.080 #### [facility] Laboratory [address] [place], [address] FINGERSTICK GLU 168 mg/dL High [address] [facility] Comment on above: Result Comment: PETEY WELDON OF PATIENT CARE PER NURSING PROTOCOL Performed By: #### L 501.080 #### [facility] Laboratory [address] [place], [address] Bilirubin, totalOrdered By: Bryan Hernández on 11-30-2024 Bilirubin [Mass/Vol] 1.50 mg/dL High 0.00-1.30 [facility] Blood manual differential co mment interpretation (narrative result)Ordered By: Margarita Levy on 11-30-2024 Manual differential comment Ld (Bld) [Interp] SCANNED [facility] CBC W/Diff, Automatedon OVALOCYTE 1+ Normal [facility] Comment on above: Performed By: #### L 501.080 #### [facility] Laboratory [address] [place], [address] TEAR DROP 1+ Normal [facility] Comment on above: Performed By: #### L 501.080 #### [facility] Laboratory [address] [place], [address] Anisocytosis Ql (Bld) 2+ Normal [facility] Comment on above: Performed By: #### L 501.080 #### [facility] Laboratory [address] [place], [address] PLT EST ADEQUATE Normal ADEQ [facility] Comment on above: Performed By: #### L 501.080 #### [facility] Laboratory [address] [place], [address] SMEAR COMMENT SCANNED Normal [facility] Comment on above: Performed By: #### L 501.080 #### [facility] Laboratory [address] [place], [address] Carbon dioxide, total [Moles /volume] in Central venous bloodOrdered By: Bryan Hernández on 11-30-2024 CO2 [Moles/Vol] 22.3 mmol/L 21.0-32.0 [facility] Chloride assayOrdered By: Cheryl Hernández on 11-30-2024 Chloride [Moles/Vol] 102 mmol/L 98-108 [facility] Comprehensive Metabolic Prof ilon 11-30-2024 Albumin [Mass/Vol] 3.7 g/dL Normal 3.4-4.8 [facility] Comment on above: Performed By: #### L 501.080 #### [facility] Laboratory [address] [place], [address] Albumin/Globulin [Mass ratio] 1.2 {ratio} Normal 0.9-2.4 [facility] Comment on above: Performed By: #### L 501.080 #### [facility] Laboratory [address] [place], [address] ALK PHOS 154 U/L High 40-129 [facility] Comment on above: Performed By: #### L 501.080 #### [facility] Laboratory [address] [place], [address] ALT [Catalytic activity/Vol] 28 U/L Normal <=46 [facility] Comment on above: Performed By: #### L 501.080 #### [facility] Laboratory [address] [place], [address] AST [Catalytic activity/Vol] 34 U/L Normal <=37 [facility] Comment on above: Performed By: #### L 501.080 #### [facility] Laboratory [address] [place], [address] Bilirubin [Mass/Vol] 1.50 mg/dL High 0.00-1.30 [facility] Comment on above: Performed By: #### L 501.080 #### [facility] Laboratory [address] [place], [address] BUN/CRE 21.3 RATIO High 10-20 [facility] Comment on above: Performed By: #### L 501.080 #### [facility] Laboratory [address] [place], [address] Calcium [Mass/Vol] 9.2 mg/dL Normal 7.6-11.0 [facility] Comment on above: Performed By: #### L 501.080 #### [facility] Laboratory [address] [place], [address] Chloride [Moles/Vol] 102 mmol/L Normal 98-108 [facility] Comment on above: Performed By: #### L 501.080 #### [facility] Laboratory [address] [place], [address] CO2 [Moles/Vol] 22.3 mmol/L Normal 21.0-32.0 [facility] Comment on above: Performed By: #### L 501.080 #### [facility] Laboratory [address] [place], [address] Creatinine [Mass/Vol] 0.91 mg/dL Normal 0.70-1.20 [facility] Comment on above: Performed By: #### L 501.080 #### [facility] Laboratory [address] [place], [address] ECRCL 84.33 ml/min Normal 50-250 [facility] Comment on above: Performed By: #### L 501.080 #### [facility] Laboratory [address] [place], [address] GAP 11 Normal 5-15 [facility] Comment on above: Performed By: #### L 501.080 #### [facility] Laboratory [address] [place], [address] GFR/1.73 sq M.predicted among non-blacks MDRD (S/P/Bld) [Vol rate/Area] 88 mL/min/{1.73_m2} Normal >60 [facility] Comment on above: Result Comment: mL/m in/1.73m2 CKD-EPI Creatinine Equation (2020) Performed By: #### L 501.080 #### [facility] Laboratory [address] [place], [address] Globulin (S) [Mass/Vol] 3.1 g/dL Normal 2.2-4.2 [facility] Comment on above: Performed By: #### L 501.080 #### [facility] Laboratory [address] [place], [address] Glucose [Mass/Vol] 172 mg/dL High 70-99 [facility] Comment on above: Performed By: #### L 501.080 #### [facility] Laboratory [address] [place], [address] Potassium [Moles/Vol] 4.8 mmol/L Normal 3.3-5.1 [facility] Comment on above: Performed By: #### L 501.080 #### [facility] Laboratory [address] [place], [address] Sodium [Moles/Vol] 135 mmol/L Normal 133-145 [facility] Comment on above: Performed By: #### L 501.080 #### [facility] Laboratory [address] [place], [address] T PROT 6.8 g/dL Normal 5.9-8.4 [facility] Comment on above: Performed By: #### L 501.080 #### [facility] Laboratory [address] [place], [address] Urea nitrogen [Mass/Vol] 19 mg/dL Normal 4-19 [facility] Comment on above: Performed By: #### L 501.080 #### [facility] Laboratory [address] [place], [address] Echocardiogram study reportO rdered By: Fco Aguilera on 11-30-2024 Study report [facility] Cardiovascular Services [address] [place] [address] Echo Complete 11/29/242034 MR#: [id number] Acct: [id number] Name: ANGI JACKSON Rep #:[id number] : 1950 74 From: Fco Arriaga Attending Dr: Dr. Fco Aguilera MD S tatus: ADM IN Ordering Dr: Margarita Levy MD Date: Location: ICU Sex: M C Admitted: 11/29/24 Reason For Study Reason For Study: Chest Pain Procedure This was a 2D Doppler, Color Flow transthoracic echocardiogram. Exam performed portable in ICU/CCU. Left Ventricle Normal LV size. Mild concentric left ventricular hypertrophy. Left ventricular systolic function is normal. The left ventricular ejection fraction is 60 %. Stage 3 diastolic dysfunction. No regional wall motion abnormalities noted. Right Ventricle Normal RV size. Normal systolic function. Atria Normal left atrium. The right atrium is mildly enlarged. Mitral Valve Normal mitral valve. Tricuspid Valve Normal tricuspid valve. Mild (1+) tricuspid valve insufficiency. Pulmonary artery systolic pressure is 33 mmHg. Great Vessels Normal aortic root. The pulmonary artery is normal size. Inferior vena cava collapse with respiration. Pericardium/Pleural No pericardial effusion. MMode/2D Measurements & Calculations LVIDd: 4.7 cm IVSd: 1.3 cm Ao root diam: 3.3 cm LVIDs: 2.5 cm LVPWd: 1.2 cm RVDd: 5.0 cm FS: 47.0 % LAV(MOD-bp): 59.7 ml SV(MOD-sp4): 52.0 ml LVAd ap4: 26.6 cm2 LAV(MOD-bp) Indexed: 27.4 ml/m2 LVLd ap4: 7.3 cm SI(MOD-sp4): 23.9 ml/m2 LAV(MOD-sp2): 51.7 ml EDV(MOD-sp4): 79.9 ml LAV(MOD-sp4): 60.9 ml EDV(sp4-el): 81.9 ml LVAs ap4: 14.5 cm2 LVLs ap4: 6.4 cm ESV(MOD-sp4): 27.9 ml ESV(sp4-el): 27.8 ml EF(MOD-sp4): 65.1 % EF(sp4-el): 66.1 % SV(sp4-el): 54.1 ml LA dimension(2D): 3.9 cm LA A4 area: 20.4 cm2 TAPSE: 2.2 cm RA A4 area: 24.3 cm2 Time Measurements MV dec time: 0.19 sec Doppler Measurements & Calculations MV E max raj: 109.0 cm/sec Lat Peak E' Raj: 15.5 cm/sec Med Peak E' Raj: 11.9 cm/sec MV A max raj: 41.0 cm/sec E/E' lat: 7.0 E/E' med: 9.2 MV E/A: 2.7 Ao V2 max: 171.8 cm/sec LV V1 max: 87.7 cm/sec MV dec slope: 520.1 cm/sec2 Ao max P.8 mmHg LV V1 max P.1 mmHg Ao V2 mean: 117.6 cm/sec Ao mean P.2 mmHg Ao V2 VTI: 28.8 cm PA V2 max: 126.0 cm/sec TR max raj: 270.5 cm/sec TR max P.3 mmHg ECHO/Echo Complete Interpretation Summary Normal LV size. Left ventricular systolic function is normal. Mild concentric left ventricular hypertrophy. The left ventricular ejection fraction is 60 %. The right atrium is mildly enlarged. Stage 3 diastolic dysfunction. Ordering Physician: Margarita Levy Referring Physician: Jovany Brush Chi Performed By: Mamie Del Rosario, ROLLY, RVT 11/30/24 1009 Date _ Fco Aguilera MD CC: Dr. Fco Aguilera MD; Dr. Margarita Levy MD; Dr. Jovany Brush MD ~ Date Dictated: 11/29/242034 Date Transcribed: 11/30/24 1009 Infantry Officer: Signed [facility] Work Phone: Eosinophil percentageOrdered By: Margarita Levy on 11-30-2024 Eosinophils/100 WBC (Bld) 0.4 % 0-5 [facility] Erythrocyte distribution wid th ratioOrdered By: Margarita Levy on 11-30-2024 Erythrocyte distribution width (RBC) [Ratio] 20.3 % High 11.6-14.6 [facility] Erythrocyte distribution wid th standard deviationOrdered By: Margarita Levy on 11-30-2024 Erythrocyte distribution width (RBC) [Ratio] 51.1 fl High 35.1-43.9 [facility] Glomerular filtration rate ( GFR) estimation/1.73 sq m using serum, plasma, or whole bOrdered By: Bryan Hernández on 11-30-2024 GFR/1.73 sq M.predicted among non-blacks MDRD (S/P/Bld) [Vol rate/Area] 88 mL/min/{1.73_m2} >60 [facility] Comment on above: mL/min/1.73m2 CKD-EP I Creatinine Equation (2020) Glucose measurement at [facility] deOrdered By: Fco Aguilera on 11-30-2024 Glucose [Mass/Vol] 163 mg/dL High 74-106 [facility] Comment on above: MANAGEMENT OF PATIEN T CARE PER NURSING PROTOCOL Glucose [Mass/Vol] 168 mg/dL High 74-106 [facility] Comment on above: MANAGEMENT OF PATIEN T CARE PER NURSING PROTOCOL Hematocrit Auto (Bld) [Volum e fraction]Ordered By: Margarita Levy on 11-30-2024 Hematocrit (Bld) [Volume fraction] 39.0 % Low 40-54 [facility] Hemoglobin A1con 11-30-2024 HbA1c (Bld) [Mass fraction] 8.5 % High <=5.6 [facility] Comment on above: Result Comment: Norm al < 5.7 % Prediabetic 5.7 - 6.4 % Diabetic >or= 6.5 % Please note range changes. Performed By: #### L 501.9917 #### [facility] Laboratory [address] [place], [address] Hemoglobin A1c percentageOrd ered By: Margarita Levy on 11-30-2024 HbA1c (Bld) [Mass fraction] 8.5 % High <5.7 [facility] Comment on above: Normal < 5.7 % Predi abetic 5.7 - 6.4 % Diabetic >or= 6.5 % Please note range changes. Hemoglobin measurementOrdere d By: Margarita Levy on 11-30-2024 Hemoglobin (Bld) [Mass/Vol] 11.9 g/dL Low 13.0-16.5 [facility] Immature granulocytes/100 WB C Auto (Bld)Ordered By: Margarita Levy on 11-30-2024 Immature granulocytes/100 WBC (Bld) 0.300 % 0.0-0.9 [facility] Comment on above: IG% - Immature Granu locytes (promyelocytes, myelocytes and metamyelocytes) > 1% indicates that a LEFT SHIFT is Present. Laboratory - Chemistry and C hemistry - challengeOrdered By: Bryan Hernández on 11-30-2024 AST [Catalytic activity/Vol] 34 U/L <38 [facility] Laboratory - Hematology and Cell countsOrdered By: Margarita Levy on 11-30-2024 Anisocytosis Ql (Bld) 2+ [facility] MCV (mean corpuscular volume ) determinationOrdered By: Margarita Levy on 11-30-2024 MCV (RBC) [Entitic vol] 72.1 fL Low 80-94 [facility] Magnesiumon 11-30-2024 Magnesium [Mass/Vol] 2.2 mg/dL Normal 1.5-2.2 [facility] Comment on above: Performed By: #### L 501.2300, L501.5200 #### [facility] Laboratory [address] [place], [address] Magnesium measurement (mass/ volume)Ordered By: Christian Hernandez on 11-30-2024 Magnesium (Unsp spec) [Mass/Vol] 2.2 mg/dL 1.5-2.2 [facility] Mean corpuscular hemoglobin (MCH) determinationOrdered By: Margarita Levy on 11-30-2024 MCH (RBC) [Entitic mass] 22.0 pg Low 27.0-32.0 [facility] Mean corpuscular hemoglobin concentration (MCHC) determinationOrdered By: Margarita Levy on 11-30-2024 MCHC (RBC) [Mass/Vol] 30.5 g/dL Low 32-36 [facility] Mean platelet volume determi nationOrdered By: Margarita Levy on 11-30-2024 Platelet mean volume (Bld) [Entitic vol] 8.8 fL 6.2-12.0 [facility] Monocyte percentageOrdered B y: Margarita Levy on 11-30-2024 Monocytes/100 WBC (Bld) 7.2 % 0-10 [facility] Neutrophil percentageOrdered By: Margarita Levy on 11-30-2024 Neutrophils/100 WBC (Bld) 82.9 % High 47-70 [facility] Nucleated red blood cell per centageOrdered By: Margarita Levy on 11-30-2024 Nucleated RBC/100 WBC (Bld) [Ratio] 0 % 0-5 [facility] Ovalocyte detectionOrdered B y: Margarita Levy on 11-30-2024 Ovalocytes LM Ql (Bld) 1+ [facility] Phosphoruson 11-30-2024 Phosphate [Mass/Vol] 3.7 mg/dL Normal 2.7-4.5 [facility] Comment on above: Performed By: #### L 501.2300, L501.5200 #### [facility] Laboratory [address] [place] [address], [address] Platelet countOrdered By: Mauro Levy on 11-30-2024 Platelets (Bld) [#/Vol] 367 10*3/uL 150-450 [facility] Platelet estimateOrdered By: Margarita Levy on 11-30-2024 Platelets LM Ql (Bld) ADEQUATE ADEQ [facility] Potassium measurement (mass/ volume)Ordered By: Bryan Hernández on 11-30-2024 Potassium (Unsp spec) [Mass/Vol] 4.8 mmol/L 3.3-5.1 [facility] RBC Auto (Bld) [#/Vol]Ordere d By: Margarita Levy on 11-30-2024 RBC (Bld) [#/Vol] 5.41 10*6/uL 4.6-6.2 [facility] Serum creatinine measurement (mass/volume)Ordered By: Bryan Hernández on 11-30-2024 Creatinine [Mass/Vol] 0.91 mg/dL 0.70-1.20 [facility] Serum globulin measurementOr dered By: Bryan Hernández on 11-30-2024 Globulin (S) [Mass/Vol] 3.1 g/dL 2.2-4.2 [facility] Serum glucose measurement (m ass/volume)Ordered By: Bryan Hernández on 11-30-2024 Glucose [Mass/Vol] 172 mg/dL High 70-99 [facility] Serum or plasma alanine pugh otransferase (ALT) measurementOrdered By: Bryan Hernández on 11-30-2024 ALT [Catalytic activity/Vol] 28 U/L <47 [facility] Serum or plasma albumin werner urement (mass/volume)Ordered By: Bryan Hernández on 11-30-2024 Albumin [Mass/Vol] 3.7 g/dL 3.4-4.8 [facility] Serum or plasma albumin/glob ulin mass ratioOrdered By: Bryan Hernández on 11-30-2024 Albumin/Globulin [Mass ratio] 1.2 {ratio} 0.9-2.4 [facility] Serum or plasma alkaline damien sphatase measurementOrdered By: Bryan Hernández on 11-30-2024 ALP [Catalytic activity/Vol] 154 U/L High 40-129 [facility] Serum or plasma calcium werner urement (mass/volume)Ordered By: Bryan Hernández on 11-30-2024 Calcium [Mass/Vol] 9.2 mg/dL 7.6-11.0 [facility] Serum or plasma urea nitroge n measurement (mass/volume)Ordered By: Bryan Hernández on 11-30-2024 Urea nitrogen [Mass/Vol] 19 mg/dL 4-19 [facility] Sodium levelOrdered By: Bunny Hernández on 11-30-2024 Sodium [Moles/Vol] 135 mmol/L 133-145 [facility] Teardrop cell detectionOrder ed By: Margarita Levy on 11-30-2024 Dacrocytes LM Ql (Bld) 1+ [facility] Total proteinOrdered By: Kar Hernández on 11-30-2024 Protein [Mass/Vol] 6.8 g/dL 5.9-8.4 [facility] White blood cell (WBC) count Ordered By: Margarita Levy on 11-30-2024 WBC (Bld) [#/Vol] 16.0 10*3/uL High 4.4-11.0 [facility] 12 Lead EKGon 11-29-2024 12 Lead EKG [facility] Cardiovascular Services [address] [place] [address] 12 Lead EKG 11/29/24 1233 MR#: [id number] Acct: [id number] Name: ANGI JACKSON Rep #: [id number] : 1950 74 From: Fco Aguilera MD Attending Dr: Dr. Fco Aguilera MD Status: ADM I N Ordering Dr: Bryan Hernández MD Date: 11/29/24 Location: ICU Sex: M C Admitted: 11/29/24 Test Reason : Blood Pressure : */* mmHG Vent. Rate : 67 BPM Atrial Rate : * BPM P-R Int : * ms QRS Dur : 78 ms QT Int : 420 ms P-R-T Axes : * -47 31 degrees QTcB Int : 443 ms Atrial fibrillation Left axis deviation Pulmonary disease pattern Abnormal ECG When compared with ECG of 10-Aug-2020 00:16, No significant change was found Confirmed by FCO AGUILERA MD ([id number]), city editor DAPHNE PINEDA ([id number]) on 12/01/2024 7:17:28 AM Referred By: Fco Aguilera Confirmed By: FCO AGUILERA MD 12/01/24 0717 Date Fco Aguilera MD CC: Dr. Fco Aguilera MD; Dr. Bryan Hernández MD; Dr. Jovany Brush MD Signed Normal [facility] ACT Activated Clotting Timeo n 11-29-2024 ACTk CLOT TIME 325 sec High 74-137 [facility] Comment on above: Performed By: #### L 9100.0100 #### [facility] Laboratory [address] [place], [address] Basic Metabolic Profile (BMP )on 11-29-2024 BUN/CRE 21.7 RATIO High 10-20 [facility] Comment on above: Performed By: #### L 500.2500 #### [facility] Laboratory [address] [place], [address] Calcium [Mass/Vol] 9.4 mg/dL Normal 7.6-11.0 [facility] Comment on above: Performed By: #### L 500.2500 #### [facility] Laboratory [address] [place], [address] Chloride [Moles/Vol] 102 mmol/L Normal 98-108 [facility] Comment on above: Performed By: #### L 500.2500 #### [facility] Laboratory [address] [place], [address] CO2 [Moles/Vol] 26.1 mmol/L Normal 21.0-32.0 [facility] Comment on above: Performed By: #### L 500.2500 #### [facility] Laboratory [address] [place], [address] Creatinine [Mass/Vol] 0.96 mg/dL Normal 0.70-1.20 [facility] Comment on above: Performed By: #### L 500.2500 #### [facility] Laboratory [address] [place], [address] ECRCL 80.13 ml/min Normal 50-250 [facility] Comment on above: Performed By: #### L 500.2500 #### [facility] Laboratory [address] [place], [address] GAP 10 Normal 5-15 [facility] Comment on above: Performed By: #### L 500.2500 #### [facility] Laboratory [address] [place], [address] GFR/1.73 sq M.predicted among non-blacks MDRD (S/P/Bld) [Vol rate/Area] 83 mL/min/{1.73_m2} Normal >60 [facility] Comment on above: Result Comment: mL/m in/1.73m2 CKD-EPI Creatinine Equation (2020) Performed By: #### L 500.2500 #### [facility] Laboratory [address] [place], [address] Glucose [Mass/Vol] 155 mg/dL High 70-99 [facility] Comment on above: Performed By: #### L 500.2500 #### [facility] Laboratory [address] [place], [address] Potassium [Moles/Vol] 4.7 mmol/L Normal 3.3-5.1 [facility] Comment on above: Performed By: #### L 500.2500 #### [facility] Laboratory [address] [place], [address] Sodium [Moles/Vol] 139 mmol/L Normal 133-145 [facility] Comment on above: Performed By: #### L 500.2500 #### [facility] Laboratory [address] [place], [address] Urea nitrogen [Mass/Vol] 21 mg/dL High 4-19 [facility] Comment on above: Performed By: #### L 500.2500 #### [facility] Laboratory [address] [place], [address] Bedside Glucoseon 11-29-2024 FINGERSTICK GLU 168 mg/dL High 74-106 [facility] Comment on above: Result Comment: PETEY FATEMEH OF PATIENT CARE PER NURSING PROTOCOL Performed By: #### L 501.080 #### [facility] Laboratory [address] [place], [address] CBC-Complete Blood Cnt No Kourtney cortes 11-29-2024 Erythrocyte distribution width (RBC) [Ratio] 20.8 % High 11.6-14.6 [facility] Comment on above: Performed By: #### L 100.0500 #### [facility] Laboratory [address] [place], [address] Hematocrit (Bld) [Volume fraction] 42.7 % Normal 40-54 [facility] Comment on above: Performed By: #### L 100.0500 #### [facility] Laboratory [address] [place], [address] Hemoglobin (Bld) [Mass/Vol] 12.9 g/dL Low 13.0-16.5 [facility] Comment on above: Performed By: #### L 100.0500 #### [facility] Laboratory [address] [place], [address] MCH (RBC) [Entitic mass] 22.0 pg Low 27.0-32.0 [facility] Comment on above: Performed By: #### L 100.0500 #### [facility] Laboratory [address] [place], [address] MCHC (RBC) [Mass/Vol] 30.2 g/dL Low 32-36 [facility] Comment on above: Performed By: #### L 100.0500 #### [facility] Laboratory [address] [place], [address] MCV (RBC) [Entitic vol] 72.7 fL Low 80-94 [facility] Comment on above: Performed By: #### L 100.0500 #### [facility] Laboratory [address] [place], [address] Platelet mean volume (Bld) [Entitic vol] 8.9 fL Normal 6.2-12.0 [facility] Comment on above: Performed By: #### L 100.0500 #### [facility] Laboratory [address] [place], [address] Platelets (Bld) [#/Vol] 388 10*3/uL Normal 150-450 [facility] Comment on above: Performed By: #### L 100.0500 #### [facility] Laboratory [address] [place], [address] RBC (Bld) [#/Vol] 5.87 10*6/uL Normal 4.6-6.2 [facility] Comment on above: Performed By: #### L 100.0500 #### [facility] Laboratory [address] [place], [address] RDW SD 51.9 fl High 35.1-43.9 [facility] Comment on above: Performed By: #### L 100.0500 #### [facility] Laboratory [address] [place], [address] WBC (Bld) [#/Vol] 13.7 10*3/uL High 4.4-11.0 [facility] Comment on above: Performed By: #### L 100.0500 #### [facility] Laboratory [address] [place], [address] CVS/PCIREPORTon 11-29-2024 CVS/PCIREPORT [facility] Cardiovascular Services [address] [place] [address] MR#: [id number] Acct: [id number] Name: ANGI JACKSON Rep #: [id number] : 1950 74 From: Bryan Hernández MD Primary Care: Dr. Jovany Brush MD Status: [facility] Referring Dr: Fco Aguilera MD Sex: M C PCI Cardiac Cath Report PCI Report: Procedure performed 1. Successful PCI of high-grade lesion involving the mid LAD, 80% stenosis With predilatation using 2.5 x 12 mm balloon, followed by placement of drug-eluting stent 3 x 50 mm and achieved excellent result With NURY-3 flow in the LAD and reduction of stenosis to 0%. 2. Placement of TR band to close the right radial artery arteriotomy site. Preprocedure diagnosis 74-year-old patient underwent cardiac catheterization by his primary product lister Dr. Aguilera I reviewed the angiographic films Consent; Risk and benefit of procedure explained in detail to the patient elected proceed informed consent obtained and placed in the chart. Patient had calcified left main with minimal luminal irregularity The left main coronary artery bifurcates into LAD and the left circumflex. The left anterior descending artery had moderate calcification. With mild atherosclerosis involving the proximal segment of the LAD. The mid segment of LAD had 80% stenotic lesion at the site of mild to moderate sidebranch diagonal. Circumflex artery is nondominant with [place] cardiac moderate calcification and around 50% stenosis. RCA is dominant with mild calcification and mild luminal irregularity of around 30%. Based on his clinical presentation and the significant atherosclerotic lesion involving the mid LAD will proceed with interventional plan. Interventional equipment used 1. With 6 Telugu EBU guide catheter 2. 0.014 180 cm extra floppy run-through guidewire 3. 2.5 x 12 mm balloon 4. 3 x 15 mm drug-eluting stent resolute Dar frontier. Medication used in the Automatic [employer] Patient was given heparin infusion ACT level acceptable above 300 Patient was given 180 mg of Brilinta. 3. 2 boluses of Integrilin with Integrilin infusion based on his creatinine clearance creatinine clearance is more than 50. Procedure in detail. We proceeded with the guide catheter advanced sending a water cannulated the left main without difficulty. Angiographic view of the left main coronary artery and the lesion involving the LAD was obtained in 2 views STATELESS caudal as well as OLSON cranial. Then we proceeded with a guidewire which crossed the lesion without difficulty This followed by balloon dilatation using 2.5 x 12 mm followed by placement of drug-eluting stent resolute frontier Blakeslee. And achieved excellent result. Patient's symptoms is mainly chronic lower back pain requiring more fentanyl and Versed. Angiographic view revealed the patency of the LAD with a NURY-3 flow. There is a lesion involving the sidebranch which is diagonal branch and this was left alone as it is a small size vessel with very 90% angulation which will make it more difficult to cross from the struts of the LAD stents. Conclusion recommendation this is a 74-year-old gentleman has unstable angina and has significant atherosclerosis involving the mid LAD underwent successful PCI No complication in the [employer] Recommendation will be the following #1 dual antiplatelet therapy with Brilinta 90 mg twice daily in addition to low-dose aspirin 2. To continue on Integrilin for 12 hours. 3. To maximize antianginal medications in the form of a beta-zuly, long-acting nitrate and possible Rimacillin. Patient to follow-up with his primary product lister for continuation of cardiac care. Bryan Hernández MD,[facility] business intelligence reporting analyst 11/29/24 1230 Date Bryan Hernández MD CC: Dr. Fco Aguilera MD; Dr. Jovany Brush MD Date Dictated: 11/29/24 1221 Date Transcribed: 11/29/241220 Infantry Officer: FB Signed Normal [facility] Cardiac catheterization repo rtOrdered By: Bryan Hernández on 11-29-2024 Cardiac catheterization study [facility] Cardiovascular Services [address] [place] [address] MR#: [id number] Acct: [id number] Name: ANGI JACKSON Rep #: [id number] : 1950 74 From: Bryan Hernández MD Primary Care: Dr. Jovany Brush MD Status : [facility] Referring Dr: cFo Aguilera MD Sex: M C PCI Cardiac Cath Report PCI Report: Procedure performed 1. Successful PCI of high-grade lesion involving the mid LAD, 80% stenosis With predilatation using 2.5 x 12 mm balloon, followed by placement of drug-eluting stent 3 x 50 mm and achieved excellent result With NURY-3 flow in the LAD and reduction of stenosis to 0%. 2. Placement of TR band to close the right radial artery arteriotomy site. Preprocedure diagnosis 74-year-old patient underwent cardiac catheterization by his primary product lister Dr. Aguilera I reviewed the angiographic films Consent; Risk and benefit of procedure explained in detail to the patient elected proceedinformed consent obtained and placed in the chart. Patient had calcified left main with minimal luminal irregularity The left main coronary artery bifurcates into LAD and the left circumflex. The left anterior descending artery had moderate calcification. With mild atherosclerosis involving the proximal segment of the LAD. The mid segment of LAD had 80% stenotic lesion at the site of mild to moderate sidebranch diagonal. Circumflex artery is nondominant with [place] cardiac moderate calcification andaround 50% stenosis. RCA is dominant with mild calcification and mild luminal irregularity of around 30%. Based on his clinical presentation and the significant atherosclerotic lesion involving the mid LAD will proceed with interventional plan. Interventional equipment used 1. With 6 Telugu EBU guide catheter 2. 0.014 180 cm extra floppy run-through guidewire 3. 2.5 x 12 mm balloon 4. 3 x 15 mm drug-eluting stent resolute Dar frontier. Medication used in the [employer] Patient was given heparin infusion ACT level acceptable above 300 Patient was given 180 mg of Brilinta. 3. 2 boluses of Integrilin with Integrilin infusion based on his creatinine clearance creatinine clearance is more than 50. Procedure in detail. We proceeded with the guide catheter advanced sending a water cannulated the left main without difficulty. Angiographic view of the left main coronary artery and the lesion involving the LAD was obtained in 2 views STATELESS caudal as well as OLSON cranial. Then we proceeded with a guidewire which crossed the lesion without difficulty This followed by balloon dilatation using 2.5 x 12 mm followed by placement of drug-eluting stent resolute frontier [place]akeslee. And achieved excellent result. Patient's symptoms is mainly chronic lower back pain requiring more fentanyl andVersed. Angiographic view revealed the patency of the LAD with a NURY-3 flow. There is a lesion involving the sidebranch which is diagonal branch and this was left alone as it is a small size vessel with very 90% angulation which will make it moredifficult to cross from the struts of the LAD stents. Conclusion recommendation this is a 74-year-old gentleman has unstable angina and has significant atherosclerosis involving the mid LAD underwent successful PCI No complication in the [employer] Recommendation will be the following #1 dual antiplatelet therapy with Brilinta 90 mg twice daily in addition to low-dose aspirin 2. To continue on Integrilin for 12 hours. 3. To maximize antianginal medications in the form of a beta-zuly, long-acting nitrate and possible Rimacillin. Patient to follow-up with his primary product lister for continuation of cardiac care. Bryan Hernández MD,[facility] business intelligence reporting analyst 11/29/24 1230 Date _ Bryan Hernández MD CC: Dr. Fco Aguilera MD; Dr. Jovany Brush MD ~ Date Dictated: 11/29/24 1221 Date Transcribed: 11/29/241220 Infantry Officer: FB Signed [facility] Work Phone: Cardiac rehabilitation repor tOrdered By: Barry Hughes on 11-29-2024 Study report [facility] Cardiac Rehab [address] [place] [address] CR: Phase I Assessment MR#: [id number] Acct: [id number] Name: ANGI JACKSON Rep #:[id number] : 1950 74 From: Barry Hughes PCP: Dr. Jovany Brush MD DOS: Patient Communication Patient Information PHII Cardiac Rehab Discussed with Patient:: Yes Guide to Cardiac Rehab Given to Patient:: Yes Cardiac Rehab Facility Choice List Given to Patient:: Yes Communication to Cardiac Rehab Choice Program [facility] CR PHII:: Communication Given to CR Mobile Phone Salesperson:: Bryan Hernández Refer Phase II Cardiac Rehab:: Yes Sessions:: 36 sessions - 3 days/wk, 12 weeks Cardiac Rehabilitation Info Program Information Cardiac Rehabilitation Program Information: Cardiac Rehab The cardiac rehab team at [facility] consists of highly skilled exercise physiologists, nurses, respiratory therapists and physicians working together with you. Our purpose is to help you have a full recovery and achieve the goals you set for yourself. Over the years many of our patients have returned to activities they assumed they would never do again! We can help restore your confidence and motivation to make lifestyle changes that can have a significant impact on your health and quality of life! We can help answer questions and concerns you may have about exercise, lifestyle, medications, diet, stress and anxiety which are common following a hospitalization. WE monitor ECG and vital signs during exercise and discuss your progress with you and report toyour physician(s). Cardiac Rehab is proven to help reduce readmissions, improve functional capacityand lower recurrence of problems with your heart. Our Cardiac Rehab program is Certified by the [place] [employer]-Vascular and Pulmonary [employer] (AACVPR) and Accredited by the [place] [employer] through our Chest Pain Center. You can contact us at . We invite you to call us with your questions or to get started in our program. If you have other questions or concerns be sure to ask your physician/provider during your follow-up visit. WE look forward to seeing you! 11/29/24 1312 Date Barry W Saul Outcome assessment reviewed. Exercise plan approved as documented. Treatment plan and goals support patient needs/abilities. Continue with current plan. I certify the patient demonstrates improvement and remains willing and capable of participation. the patient continues to benefit from cardiac rehab services/training. The patient may continue at current intensity, endurance andmodality and progress per protocol. Cosigner Signature: Date _ CC: ~ Signed [facility] Chest 1 View (Portable)on Chest 1 View (Portable) [facility] Imaging Services [address] [place] [id number] Chest 1 View (Portable) MR#: [id number] Acct: [id number] Name: ANGI JACKSON Rep #: [id number] : 1950 M 74 From: Romeo Arriaga PCP: Dr. Jovany Brush MD Status: [facility] Study: Chest 1 View (Portable) Date of Exam: 11/29/24 Exam# [id number] Ordering Dr: Margarita Leyv MD PROCEDURE: CHEST 1 VIEW (PORTABLE) 11/29/2024 REASON FOR EXAM: SOB TECHNIQUE: Frontal view of the chest. COMPARISON: Chest x-ray 08/20/2024. RAD/Chest 1 View (Portable) IMPRESSION: Mild right hemidiaphragm elevation is again present. Lungs appear clear of acute disease. No pleural effusion or pneumothorax is noted. The cardiomediastinal silhouette is stable, without evident of cardiomegaly. No evidence of acute cardiopulmonary disease. Reading Location: [address] CC: Dr. Margarita Levy MD; Dr. Jovany Brush MD Infantry Officer: Signed Normal [facility] Echo Completeon 11-29-2024 Echo Complete [facility] Cardiovascular Services [address] [place] [address] Echo Complete 11/29/242034 MR#: [id number] Acct: [id number] Name: ANGI JACKSON Rep #: [id number] : 1950 74 From: Fco Aguilera MD Attending Dr: Dr. Fco Aguilera MD Status: ADM I N Ordering Dr: Margarita Levy MD Date: 11/29/24 Location: ICU Sex: M C Admitted: 11/29/24 Reason For Study Reason For Study: Chest Pain Procedure This was a 2D Doppler, Color Flow transthoracic echocardiogram. Exam performed portable in ICU/CCU. Left Ventricle Normal LV size. Mild concentric left ventricular hypertrophy. Left ventricular systolic function is normal. The left ventricular ejection fraction is 60 %. Stage 3 diastolic dysfunction. No regional wall motion abnormalities noted. Right Ventricle Normal RV size. Normal systolic function. Atria Normal left atrium. The right atrium is mildly enlarged. Mitral Valve Normal mitral valve. Tricuspid Valve Normal tricuspid valve. Mild (1+) tricuspid valve insufficiency. Pulmonary artery systolic pressure is 33 mmHg. Great Vessels Normal aortic root. The pulmonary artery is normal size. Inferior vena cava collapse with respiration. Pericardium/Pleural No pericardial effusion. MMode/2D Measurements Calculations LVIDd: 4.7 cm IVSd: 1.3 cm Ao root diam: 3.3 cm LVIDs: 2.5 cm LVPWd: 1.2 cm RVDd: 5.0 cm FS: 47.0 % LAV(MOD-bp): 59.7 ml SV(MOD-sp4): 52.0 ml LVAd ap4: 26.6 cm2 LAV(MOD-bp) Indexed: 27.4 ml/m2 LVLd ap4: 7.3 cm SI(MOD-sp4): 23.9 ml/m2 LAV(MOD-sp2): 51.7 ml EDV(MOD-sp4): 79.9 ml LAV(MOD-sp4): 60.9 ml EDV(sp4-el): 81.9 ml LVAs ap4: 14.5 cm2 LVLs ap4: 6.4 cm ESV(MOD-sp4): 27.9 ml ESV(sp4-el): 27.8 ml EF(MOD-sp4): 65.1 % EF(sp4-el): 66.1 % SV(sp4-el): 54.1 ml LA dimension(2D): 3.9 cm LA A4 area: 20.4 cm2 TAPSE: 2.2 cm RA A4 area: 24.3 cm2 Time Measurements MV dec time: 0.19 sec Doppler Measurements Calculations MV E max raj: 109.0 cm/sec Lat Peak E' Raj: 15.5 cm/sec Med Peak E' Raj: 11.9 cm/sec MV A max raj: 41.0 cm/sec E/E' lat: 7.0 E/E' med: 9.2 MV E/A: 2.7 Ao V2 max: 171.8 cm/sec LV V1 max: 87.7 cm/sec MV dec slope: 520.1 cm/sec2 Ao max P.8 mmHg LV V1 max P.1 mmHg Ao V2 mean: 117.6 cm/sec Ao mean P.2 mmHg Ao V2 VTI: 28.8 cm PA V2 max: 126.0 cm/sec TR max raj: 270.5 cm/sec TR max P.3 mmHg ECHO/Echo Complete Interpretation Summary Normal LV size. Left ventricular systolic function is normal. Mild concentric left ventricular hypertrophy. The left ventricular ejection fraction is 60 %. The right atrium is mildly enlarged. Stage 3 diastolic dysfunction. Ordering Physician: Margarita Levy Referring Physician: Jovany Brush Chi Performed By: Mamie Del Rosario, ROLLY, RVT 11/30/24 1009 Date Fco Aguilera MD CC: Dr. Fco Aguilera MD; Dr. Margarita Levy MD; Dr. Jovany Brush MD Date Dictated: 11/29/242034 Date Transcribed: 11/30/24 100 Infantry Officer: Signed Normal [facility] H AND P Exam - Hospitaliston 11-29-2024 H&P Exam - Hospitalist [facility] Medical Records Department [address] [place] [address] H P Exam - Hospitalist 11/29/24 1523 MR#: [id number] Acct: [id number] Name: ANGI JACKSON Rep #: [id number] : 1950 74 From: Margarita Levy MD PCP: Dr. Jovany Brush MD Status:[facility] [place] Location: ICU ICU05-1 HPI - General General Date of Admission: 11/29/24 Date of Service: 11/29/24 Chief Complaint: Elective heart cath status post stenting HPI Narrative ANGI JACKSON, is a 74 y/o M with a history of CVA, A-fib on Eliquis, hypertension, COPD, GERD, depression, chronic pain presented to [facility] 11/29/2024 for elective cath. He had stent to the LAD and disease in the sidebranch that was not amenable to stenting and plan was for PCU for monitoring however patient developed chest pain and it was felt this was due to the sidebranch, EKG with no new changes but patient transferred to the ICU to be placed on nitroglycerin drip. Hospitalist contacted to manage patient's other medications and orders. Patient evaluated at bedside. Patient has been somewhat nauseous, also reports the chest pain is on the left side of his chest and feels almost sharp in nature and worse with a deep breath, main complaint at the time of exam seems to be difficulty catching his breath, necessarily coughing but he is worried he is feeling up with fluids, has history of CVA with some chronic deficits that are noted and he reports that at baseline [facility] Medical History Gastroparesis Atherosclerotic heart disease of [place] coronary artery without angina pectoris Dyspnea on exertion Near syncope Positional lightheadedness Syncope History of CVA (cerebrovascular accident) TIA (transient ischemic attack) Longstanding persistent atrial fibrillation Nicotine dependence Hyperlipidemia Essential (primary) hypertension Obstructive sleep apnea Bladder diverticulum Squamous cell skin cancer Squamous cell cancer of skin of [place] Anxiety and depression GERD (gastroesophageal reflux disease) CVA (cerebral vascular accident) Osteoarthritis Home Medications ???Medication ???Instructions ???Recorded ???Last Taken ???Type fluticasone fur. 100 mcg-umeclid 1 inh inhalation DAILY 09/06/21 Un known History 62.5 mcg-vilant 25 mcg inhalat.powder duloxetine 60 mg capsule,delayed 60 mg PO DAILY 04/25/22 Unknown Hi story release ondansetron HCl 4 mg tablet 4 mg PO QHS PRN nausea and vomitin g 07/17/23 Unknown History albuterol sulfate 90 mcg/actuation 1 inh inhalation Q8H PRN shortne ss 10/31/23 Unknown History aerosol inhaler of breath or wheezing fluticasone propionate 50 1 spray intranasal 10/31/23 Unknow n History mcg/actuation nasal spray,suspension metoprolol tartrate 50 mg tablet 50 mg PO BID 10/31/23 Unknown Hist ory omeprazole 40 mg capsule,delayed 40 mg PO BID 10/31/23 Unknown Hist ory release fexofenadine 180 mg tablet 180 mg PO Q24H 08/20/24 11/28/24 H istory pregabalin 50 mg capsule (Lyrica) 50 mg PO BID 08/20/24 Unknown His tory isosorbide mononitrate 30 mg 30 mg PO DAILY #90 TABLETS 5 Unknown Rx tablet,extended release 24 hr apixaban 5 mg tablet (Eliquis) 5 mg PO BID 09/17/24 11/26/24 Hist ory atorvastatin 40 mg tablet 40 mg PO QHS 09/17/24 Unknown Hist ory budesonide 160 mcg-glycopyr 9 2 inh inhalation BID 09/17/24 Unkn own History mcg-formot 4.8 mcg/actuation HFA inhaler (Breztri Aerosphere) buprenorphine 20 mcg/hour weekly 1 patch transdermal QWEEK 09/17/24 Unknown History transdermal patch furosemide 40 mg tablet (Lasix) 40 mg PO BID #90 tabs 09/17/24 Unk nown Rx lactobacillus combination no.9 PO DAILY 09/17/24 Unknown History [Adult 50 Plus Probiotic] sucralfate 1 gram tablet PO 09/17/24 Unknown History spironolactone 25 mg tablet 25 mg PO QDAY #30 tabs 09/21/24 Un known Rx empagliflozin 10 mg tablet 10 mg PO QAM #30 tabs 10/27/24 Unk nown Rx (Jardiance) Allergy/AdvReac Type Severity Reaction Status Date / Time codeine Allergy HEART RATE Verified 11/05/24 11:23 IRREGULAR rivaroxaban (From Xarelto) AdvReac Bleeding Verified 11/05/24 11:23 Family History Father Heart disease Hypertension CVA (cerebral vascular accident) Mother Hypertension Breast cancer Surgical History History of left heart catheterization (06/20/20) History of total hip arthroplasty History of bladder surgery (03/29/20) History of total bilateral knee replacement History of cholecystectomy History of colonoscopy Social History Smoking Status: Former smoker alcohol intake: former details: H/O abuse (more content not included)... Normal [facility] L503.7505on 11-29-2024 Natriuretic peptide B (Bld) [Mass/Vol] 531 pg/mL Normal <=1800 [facility] Comment on above: Result Comment: Hear t Failure Unlikely: < 300 pg/mL Heart Failure Likely < 50 Years: > 450 pg/mL 50-75 Years: > 900 pg/mL >75 Years: > 1800 pg/mL Performed By: #### L 503.7505 #### [facility] Laboratory [address] [place], [address] Natriuretic peptide.B prohor tatyana N-Terminal [Mass/volume] in Serum or PlasmaOrdered By: Margarita Levy on 11-29-2024 Natriuretic peptide.B prohormone N-Terminal [Mass/Vol] 531 pg/mL <1800 [facility] Comment on above: Heart Failure Unlike ly: < 300 pg/mLHeart Failure Likely< 50 Years: > 450 pg/mL50-75 Years: > 900 pg/mL>75 Years: > 1800 pg/mL Activated partial thrombopla stin time (aPTT) in platelet poor plasma by coagulation aOrdered By: Maikel Liang on 11-19-2024 aPTT Coag (PPP) [Time] 29.5 s 24.1-36.2 [facility] Basic Metabolic Profile (BMP )on 11-19-2024 BUN/CRE 18.6 RATIO Normal 10-20 [facility] Comment on above: Performed By: #### L 500.2500 #### [facility] Laboratory [address] [place], [address] Calcium [Mass/Vol] 9.3 mg/dL Normal 7.6-11.0 [facility] Comment on above: Performed By: #### L 500.2500 #### [facility] Laboratory [address] [place], [address] Chloride [Moles/Vol] 97 mmol/L Low 98-108 [facility] Comment on above: Performed By: #### L 500.2500 #### [facility] [address] [place], [address] CO2 [Moles/Vol] 25.2 mmol/L Normal 21.0-32.0 [facility] Comment on above: Performed By: #### L 500.2500 #### [facility] [address] [place], [address] Creatinine [Mass/Vol] 1.29 mg/dL High 0.70-1.20 [facility] Comment on above: Performed By: #### L 500.2500 #### [facility] [address] [place], [address] GAP 11 Normal 5-15 [facility] Comment on above: Performed By: #### L 500.2500 #### [facility] [address] [place], [address] GFR/1.73 sq M.predicted among non-blacks MDRD (S/P/Bld) [Vol rate/Area] 58 mL/min/{1.73_m2} Low >60 [facility] Comment on above: Result Comment: mL/m in/1.73m2 CKD-EPI Creatinine Equation (2020) Performed By: #### L 500.2500 #### [facility] [address] [place], [address] Glucose [Mass/Vol] 140 mg/dL High 70-99 [facility] Comment on above: Performed By: #### L 500.2500 #### [facility] [address] [place], [address] Potassium [Moles/Vol] 5.2 mmol/L High 3.3-5.1 [facility] Comment on above: Performed By: #### L 500.2500 #### [facility] [address] [place], [address] Sodium [Moles/Vol] 133 mmol/L Normal 133-145 [facility] Comment on above: Performed By: #### L 500.2500 #### [facility] [address] [place], [address] Urea nitrogen [Mass/Vol] 24 mg/dL High 4-19 [facility] Comment on above: Performed By: #### L 500.2500 #### [facility] [address] [place], [address] CBC W/Diff, Automatedon 06-2 Anisocytosis Ql (Bld) 1+ Normal [facility] Comment on above: Performed By: #### L 300.4310, L100.0100, L500.2500, L300.3900 #### [facility] [address] [place], [address] International normalized rat io (INR) calculationOrdered By: Maikel Liang on 11-19-2024 INR Coag (Bld) [Relative time] 1.3 {INR} [facility] Partial Thromboplast Timeon 11-19-2024 aPTT Coag (Bld) [Time] 29.5 s Normal 24.1-36.2 [facility] Comment on above: Performed By: #### L 500.2500 #### [facility] [address], [address] Prothrombin Time w/INRon INR Coag (PPP) [Relative time] 1.3 {INR} Normal [facility] Comment on above: Performed By: #### L 500.2500 #### [facility] [address] [place], [address] PT Coag (PPP) [Time] 16.1 s High 11.7-14.9 [facility] Comment on above: Performed By: #### L 500.2500 #### [facility] [address] [place], [address] Prothrombin timeOrdered By: Maikel Liang on 11-19-2024 PT Coag (PPP) [Time] 16.1 s High 11.7-14.9 [facility] Cardiology Visit Reporton Cardiology Visit Report [facility] [address] [place] [address] OFFICE VISIT Date of Service: 11/05/24 MR#: [id number] Acct: [id number] Name: RENETTAMENDELOLIMPIA DAVENPORT Rep #: [id number] : 1950 Provider: MAURO Ramos Age/Sex: 74/M Location: [facility] Status: Signed HPI HPI History of Present [...] preserved ejection fraction. Patient was hospitalized at [facility] in July 2024 with CHF symptoms and [...] Monitor Intake Visit Reasons: 8 W FU Epic Professional Required: No Accompanied by: Daughter Is patient in pain?: No Allergies codeine Allergy (Verified 11/05/24 11:23) HEART RATE IRREGULAR rivaroxaban (From SmartStay, IncrelTareasPlus) Adverse Reaction (Verified 11/05/24 11:23) Bleeding Medications [...] 09/17/2410/24 History mcg-formot 4.8 mcg/actuation HFA inhaler (Breztri Aerosphere) buprenorphine 20 (more content not included)... Normal [facility] Absolute lymphocyte countOrd ered By: Maikel Liang on 09-30-2024 Lymphocytes Auto (Unsp spec) [#/Vol] 1.38 10*3/uL 0.83-4.51 [facility] Absolute neutrophil countOrd ered By: Maikel Liang on 09-30-2024 Neutrophils (Bld) [#/Vol] 11.0 10*3/uL High 2.0-7.7 [facility] Anion gap in Serum or Plasma Ordered By: Maikel Liang on 09-30-2024 Anion gap [Moles/Vol] 12 mmol/L 5-15 [facility] Automated lymphocyte count a s percentage of total leukocytesOrdered By: Maikel Liang on 09-30-2024 Lymphocytes/100 WBC Auto (Unsp spec) 10.0 % Low 19-41 [facility] BUN/creatinine ratioOrdered By: Maikel Liang on 09-30-2024 Urea nitrogen/Creatinine [Mass ratio] 18.7 mg/mg 10- [facility] Basic Metabolic Profile (BMP )on 09-30-2024 BUN/CRE 18.7 RATIO Normal - [facility] Comment on above: Performed By: #### L 500.2500 #### [facility] [address] [place], [address] Calcium [Mass/Vol] 9.5 mg/dL Normal 7.6-11.0 [facility] Comment on above: Performed By: #### L 500.2500 #### [facility] [address] [place], [address] Chloride [Moles/Vol] 102 mmol/L Normal 98-108 [facility] Comment on above: Performed By: #### L 500.2500 #### [facility] [address] [place], [address] CO2 [Moles/Vol] 23.8 mmol/L Normal 21.0-32.0 [facility] Comment on above: Performed By: #### L 500.2500 #### [facility] [address] [place], [address] Creatinine [Mass/Vol] 1.07 mg/dL Normal 0.70-1.20 [facility] Comment on above: Performed By: #### L 500.2500 #### [facility] [address] [place], [address] GAP 12 Normal 5-15 [facility] Comment on above: Performed By: #### L 500.2500 #### [facility] [address] [place], [address] GFR/1.73 sq M.predicted among non-blacks MDRD (S/P/Bld) [Vol rate/Area] 72 mL/min/{1.73_m2} Normal >60 [facility] Comment on above: Result Comment: mL/m in/1.73m2 CKD-EPI Creatinine Equation (2020) Performed By: #### L 500.2500 #### [facility] [address] [place], [address] Glucose [Mass/Vol] 117 mg/dL High 70-99 [facility] Comment on above: Performed By: #### L 500.2500 #### [facility] [address] [place], [address] Potassium [Moles/Vol] 4.8 mmol/L Normal 3.3-5.1 [facility] Comment on above: Performed By: #### L 500.2500 #### [facility] [address] [place], [address] Sodium [Moles/Vol] 137 mmol/L Normal 133-145 [facility] Comment on above: Performed By: #### L 500.2500 #### [facility] [address] [place], [address] Urea nitrogen [Mass/Vol] 20 mg/dL High 4-19 [facility] Comment on above: Performed By: #### L 500.2500 #### [facility] [address] [place], [address] Basophil percentageOrdered B y: Maikel Demiter on 09-30-2024 Basophils/100 WBC (Bld) 0.8 % 0-1 [facility] CBC W/Diff, Automatedon Absolute Lymph 1.38 X10 3/uL Normal 0.83-4.51 [facility] Comment on above: Performed By: #### L 500.2500 #### [facility] [address] [place], [address] Absolute Neut 11.0 X10 3/uL High 2.0-7.7 [facility] Comment on above: Performed By: #### L 500.2500 #### [facility] [address] [place], [address] Basophils/100 WBC (Bld) 0.8 % Normal 0-1 [facility] Comment on above: Performed By: #### L 500.2500 #### [facility] [address] [place], [address] Eosinophils/100 WBC (Bld) 1.0 % Normal 0-5 [facility] Comment on above: Performed By: #### L 500.2500 #### [facility] [address] [place], [address] Erythrocyte distribution width (RBC) [Ratio] 18.2 % High 11.6-14.6 [facility] Comment on above: Performed By: #### L 500.2500 #### [facility] [address] [place], [address] Hematocrit (Bld) [Volume fraction] 37.8 % Low 40-54 [facility] Comment on above: Performed By: #### L 500.2500 #### [facility] [address] [place], [address] Hemoglobin (Bld) [Mass/Vol] 11.3 g/dL Low 13.0-16.5 [facility] Comment on above: Performed By: #### L 500.2500 #### [facility] [address] [place], [address] IG% 0.700 Normal 0.0-0.9 [facility] Comment on above: Result Comment: IG% - Immature Granulocytes (promyelocytes, myelocytes and metamyelocytes) > 1% indicates that a LEFT SHIFT is Present. Performed By: #### L 500.2500 #### [facility] [address] [place], [address] Lymphocytes/100 WBC (Bld) 10.0 % Low 19-41 [facility] Comment on above: Performed By: #### L 500.2500 #### [facility] [address] [place], [place], [address] MCH (RBC) [Entitic mass] 22.2 pg Low 27.0-32.0 [facility] Comment on above: Performed By: #### L 500.2500 #### [facility] [address] [place], [address] MCHC (RBC) [Mass/Vol] 29.9 g/dL Low 32-36 [facility] Comment on above: Performed By: #### L 500.2500 #### [facility] [address] [place], [address] MCV (RBC) [Entitic vol] 74.1 fL Low 80-94 [facility] Comment on above: Performed By: #### L 500.2500 #### [facility] [address] [place], [address] Monocytes/100 WBC (Bld) 7.4 % Normal 0-10 [facility] Comment on above: Performed By: #### L 500.2500 #### [facility] [address] [place], [address] Neutrophils/100 WBC (Bld) 80.1 % High 47-70 [facility] Comment on above: Performed By: #### L 500.2500 #### [facility] [address] [place], [address] Nucleated RBC (Bld) [#/Vol] 0 10*3/uL Normal 0-5 [facility] Comment on above: Performed By: #### L 500.2500 #### [facility] [address] [place], [address] Platelet mean volume (Bld) [Entitic vol] 9.1 fL Normal 6.2-12.0 [facility] Comment on above: Performed By: #### L 500.2500 #### [facility] [address] [place], [address] Platelets (Bld) [#/Vol] 427 10*3/uL Normal 150-450 [facility] Comment on above: Performed By: #### L 500.2500 #### [facility] [address] [place], [address] RBC (Bld) [#/Vol] 5.10 10*6/uL Normal 4.6-6.2 [facility] Comment on above: Performed By: #### L 500.2500 #### [facility] [address] [place], [address] RDW SD 47.7 fl High 35.1-43.9 [facility] Comment on above: Performed By: #### L 500.2500 #### [facility] [address] [place], [address] WBC (Bld) [#/Vol] 13.7 10*3/uL High 4.4-11.0 [facility] Comment on above: Performed By: #### L 500.2500 #### [facility] [address] [place], [place], [address] Carbon dioxide, total [Moles /volume] in Central venous bloodOrdered By: Maikel Liang on 09-30-2024 CO2 [Moles/Vol] 23.8 mmol/L 21.0-32.0 [facility] Chloride assayOrdered By: Mary Kate Liang on 09-30-2024 Chloride [Moles/Vol] 102 mmol/L 98-108 [facility] Eosinophil percentageOrdered By: Maikel Liang on 09-30-2024 Eosinophils/100 WBC (Bld) 1.0 % 0-5 [facility] Erythrocyte distribution wid th ratioOrdered By: Maikel Liang on 09-30-2024 Erythrocyte distribution width (RBC) [Ratio] 18.2 % High 11.6-14.6 [facility] Erythrocyte distribution wid th standard deviationOrdered By: Maikel Liang on 09-30-2024 Erythrocyte distribution width (RBC) [Ratio] 47.7 fl High 35.1-43.9 [facility] Glomerular filtration rate ( GFR) estimation/1.73 sq m using serum, plasma, or whole bOrdered By: Maikel Liang on 09-30-2024 GFR/1.73 sq M.predicted among non-blacks MDRD (S/P/Bld) [Vol rate/Area] 72 mL/min/{1.73_m2} >60 [facility] Comment on above: mL/min/1.73m2 CKD-EP I Creatinine Equation (2020) Hematocrit Auto (Bld) [Volum e fraction]Ordered By: Maikel Liang on 09-30-2024 Hematocrit (Bld) [Volume fraction] 37.8 % Low 40-54 [facility] Hemoglobin measurementOrdere d By: Maikel Liang on 09-30-2024 Hemoglobin (Bld) [Mass/Vol] 11.3 g/dL Low 13.0-16.5 [facility] Immature granulocytes/100 WB C Auto (Bld)Ordered By: Maikel Liang on 09-30-2024 Immature granulocytes/100 WBC (Bld) 0.700 % 0.0-0.9 [facility] Comment on above: IG% - Immature Granu locytes (promyelocytes, myelocytes and metamyelocytes) > 1% indicates that a LEFT SHIFT is Present. MCV (mean corpuscular volume ) determinationOrdered By: Maikel Liang on 09-30-2024 MCV (RBC) [Entitic vol] 74.1 fL Low 80-94 [facility] Mean corpuscular hemoglobin (MCH) determinationOrdered By: Maikel Liang on 09-30-2024 MCH (RBC) [Entitic mass] 22.2 pg Low 27.0-32.0 [facility] Mean corpuscular hemoglobin concentration (MCHC) determinationOrdered By: Maikel Liang on 09-30-2024 MCHC (RBC) [Mass/Vol] 29.9 g/dL Low 32-36 [facility] Mean platelet volume determi nationOrdered By: Maikel Liang on 09-30-2024 Platelet mean volume (Bld) [Entitic vol] 9.1 fL 6.2-12.0 [facility] Monocyte percentageOrdered B y: Maikel Liang on 09-30-2024 Monocytes/100 WBC (Bld) 7.4 % 0-10 [facility] Neutrophil percentageOrdered By: Maikel Liang on 09-30-2024 Neutrophils/100 WBC (Bld) 80.1 % High 47-70 [facility] Nucleated red blood cell per centageOrdered By: Maikel Liang on 09-30-2024 Nucleated RBC/100 WBC (Bld) [Ratio] 0 % 0-5 [facility] Platelet countOrdered By: Mary Kate Liang on 09-30-2024 Platelets (Bld) [#/Vol] 427 10*3/uL 150-450 [facility] Potassium measurement (mass/ volume)Ordered By: Maikel Liang on 09-30-2024 Potassium (Unsp spec) [Mass/Vol] 4.8 mmol/L 3.3-5.1 [facility] RBC Auto (Bld) [#/Vol]Ordere d By: Maikel Liang on 09-30-2024 RBC (Bld) [#/Vol] 5.10 10*6/uL 4.6-6.2 [facility] Serum creatinine measurement (mass/volume)Ordered By: Maikel Liang on 09-30-2024 Creatinine [Mass/Vol] 1.07 mg/dL 0.70-1.20 [facility] Serum glucose measurement (m ass/volume)Ordered By: Maikel Liang on 09-30-2024 Glucose [Mass/Vol] 117 mg/dL High 70-99 [facility] Serum or plasma calcium werner urement (mass/volume)Ordered By: Maikel Liang on 09-30-2024 Calcium [Mass/Vol] 9.5 mg/dL 7.6-11.0 [facility] Serum or plasma urea nitroge n measurement (mass/volume)Ordered By: Maikel Liang on 09-30-2024 Urea nitrogen [Mass/Vol] 20 mg/dL High 4-19 [facility] Sodium levelOrdered By: [facility] Garth on 09-30-2024 Sodium [Moles/Vol] 137 mmol/L 133-145 [facility] White blood cell (WBC) count Ordered By: Maikel Liang on 09-30-2024 WBC (Bld) [#/Vol] 13.7 10*3/uL High 4.4-11.0 [facility] Cardiology Visit Reporton Cardiology Visit Report [facility] [address] [place] [address] OFFICE VISIT Date of Service: 09/17/24 MR#: [id number] Acct: [id number] Name: ANGI JACKSON Rep #: [id number] : 1950 Provider: MAURO Ramos Age/Sex: 74/M [place] [facility] [place] Status: Signed HPI HPI History of Present [...] preserved ejection fraction. Patient was hospitalized at [facility] 08/14 - 08/16/2024 for CHF. Patient was [...] NIBP Intake Visit Reasons: 4 W FU Epic Professional Required: No Accompanied by: Daughter Is patient [...] Q24H 08/20/2409/17 (more content not included)... Normal [facility] Thyroid Stim Hormone (TSH)on 09-02-2024 TSH 1.470 uIU/mL Normal 0.300-4.200 [facility] Comment on above: Order Comment: *ADD ON*PLEASE ADD ON TSH TO LABS DONE ON 09/01/24 Performed By: #### L 100.0500 #### [facility] [address] [place], [address] Absolute lymphocyte countOrd ered By: Jovany Brush on 09-01-2024 Lymphocytes Auto (Unsp spec) [#/Vol] 1.42 10*3/uL 0.83-4.51 [facility] Absolute neutrophil countOrd ered By: Jovany Brush on 09-01-2024 Neutrophils (Bld) [#/Vol] 9.4 10*3/uL High 2.0-7.7 [facility] Anion gap in Serum or Plasma Ordered By: Jovany Rayok on 09-01-2024 Anion gap [Moles/Vol] 12 mmol/L 5-15 [facility] Automated lymphocyte count a s percentage of total leukocytesOrdered By: Jovany Brush on 09-01-2024 Lymphocytes/100 WBC Auto (Unsp spec) 11.7 % Low 19-41 [facility] BUN/creatinine [facility]Ordered By: [facility] 09-01-[facility] Urea nitrogen/Creatinine [Mass ratio] 17.0 mg/mg 10-20 [facility] Basophil percentageOrdered B y: Jovany Brush on 09-01-2024 Basophils/100 WBC (Bld) 0.7 % 0-1 [facility] Bilirubin, totalOrdered By: Jovany Gonsalo on 09-01-2024 Bilirubin [Mass/Vol] 0.62 mg/dL 0.00-1.30 [facility] CBC W/Diff, Automatedon 0 Absolute Lymph 1.42 X10 3/uL Normal 0.83-4.51 [facility] Comment on above: Performed By: #### L 500.2500 #### [facility] [address] [place], [address] Absolute Neut 9.4 X10 3/uL High 2.0-7.7 [facility] Comment on above: Performed By: #### L 500.2500 #### [facility] [address] [place], [address] Basophils/100 WBC (Bld) 0.7 % Normal 0-1 [facility] Comment on above: Performed By: #### L 500.2500 #### [facility] [address] [place], [address] Eosinophils/100 WBC (Bld) 1.6 % Normal 0-5 [facility] Comment on above: Performed By: #### L 500.2500 #### [facility] [address] [place], [address] Erythrocyte distribution width (RBC) [Ratio] 18.0 % High 11.6-14.6 [facility] Comment on above: Performed By: #### L 500.2500 #### [facility] [address] [place], [address] Hematocrit (Bld) [Volume fraction] 39.5 % Low 40-54 [facility] Comment on above: Performed By: #### L 500.2500 #### [facility] [address] [place], [address] Hemoglobin (Bld) [Mass/Vol] 11.8 g/dL Low 13.0-16.5 [facility] Comment on above: Performed By: #### L 500.2500 #### [facility] [address] [place], [address] IG% 0.500 Normal 0.0-0.9 [facility] Comment on above: Result Comment: IG% - Immature Granulocytes (promyelocytes, myelocytes and metamyelocytes) > 1% indicates that a LEFT SHIFT is Present. Performed By: #### L 500.2500 #### [facility] [address] [place], [address] Lymphocytes/100 WBC (Bld) 11.7 % Low 19-41 [facility] Comment on above: Performed By: #### L 500.2500 #### [facility] [address] [place], [address] MCH (RBC) [Entitic mass] 22.7 pg Low 27.0-32.0 [facility] Comment on above: Performed By: #### L 500.2500 #### [facility] [address] [place], [address] MCHC (RBC) [Mass/Vol] 29.9 g/dL Low 32-36 [facility] Comment on above: Performed By: #### L 500.2500 #### [facility] [address] [place], [address] MCV (RBC) [Entitic vol] 76.0 fL Low 80-94 [facility] Comment on above: Performed By: #### L 500.2500 #### [facility] [address] [place], [address] Monocytes/100 WBC (Bld) 8.2 % Normal 0-10 [facility] Comment on above: Performed By: #### L 500.2500 #### [facility] [address] [place], [address] Neutrophils/100 WBC (Bld) 77.3 % High 47-70 [facility] Comment on above: Performed By: #### L 500.2500 #### [facility] [address] [place], [address] Nucleated RBC (Bld) [#/Vol] 0 10*3/uL Normal 0-5 [facility] Comment on above: Performed By: #### L 500.2500 #### [facility] [address] [place], [address] Platelet mean volume (Bld) [Entitic vol] 9.2 fL Normal 6.2-12.0 [facility] Comment on above: Performed By: #### L 500.2500 #### [facility] [address] [place], [address] Platelets (Bld) [#/Vol] 424 10*3/uL Normal 150-450 [facility] Comment on above: Performed By: #### L 500.2500 #### [facility] [address] [place], [address] RBC (Bld) [#/Vol] 5.20 10*6/uL Normal 4.6-6.2 [facility] Comment on above: Performed By: #### L 500.2500 #### [facility] [address] [place], [address] RDW SD 48.5 fl High 35.1-43.9 [facility] Comment on above: Performed By: #### L 500.2500 #### [facility] [address] [place], [address] WBC (Bld) [#/Vol] 12.1 10*3/uL High 4.4-11.0 [facility] Comment on above: Performed By: #### L 500.2500 #### [facility] [address] [place], [address] Calculated very low density lipoprotein (VLDL) cholesterol measurementOrdered By: Jovany Brush on 09-01-2024 Calculated very low density lipoprotein (VLDL) cholesterol measurement 27 mg/dL -40 [facility] VLDL Cholesterol 27 mg/dL - [facility] Carbon dioxide, total [Moles /volume] in Central venous bloodOrdered By: Jovany Brush on 09-01-2024 CO2 [Moles/Vol] 23.6 mmol/L 21.0-32.0 [facility] Chloride assayOrdered By: Dharmesh Brush on 09-01-2024 Chloride [Moles/Vol] 102 mmol/L 98-108 [facility] Comprehensive Metabolic Prof ilon 09-01-2024 Albumin [Mass/Vol] 4.2 g/dL Normal 3.4-4.8 [facility] Comment on above: Order Comment: TSH Performed By: #### L 500.2500 #### [facility] [address] [place], [address] Albumin/Globulin [Mass ratio] 1.2 {ratio} Normal 0.9-2.4 [facility] Comment on above: Order Comment: TSH Performed By: #### L 500.2500 #### [facility] [address] [place], [address] ALK PHOS 144 U/L High 40-129 [facility] Comment on above: Order Comment: TSH Performed By: #### L 500.2500 #### [facility] [address] [place], [address] ALT [Catalytic activity/Vol] 21 U/L Normal <=46 [facility] Comment on above: Order Comment: TSH Performed By: #### L 500.2500 #### [facility] [address] [place], [address] AST [Catalytic activity/Vol] 26 U/L Normal <=37 [facility] Comment on above: Order Comment: TSH Performed By: #### L 500.2500 #### [facility] [address] [place], [address] Bilirubin [Mass/Vol] 0.62 mg/dL Normal 0.00-1.30 [facility] Comment on above: Order Comment: TSH Performed By: #### L 500.2500 #### [facility] [address] [place], [address] BUN/CRE 17.0 RATIO Normal 10-20 [facility] Comment on above: Order Comment: TSH Performed By: #### L 500.2500 #### [facility] [address] [place], [address] Calcium [Mass/Vol] 9.7 mg/dL Normal 7.6-11.0 [facility] Comment on above: Order Comment: TSH Performed By: #### L 500.2500 #### [facility] [address] [place], [address] Chloride [Moles/Vol] 102 mmol/L Normal 98-108 [facility] Comment on above: Order Comment: TSH Performed By: #### L 500.2500 #### [facility] [address] [place], [address] CO2 [Moles/Vol] 23.6 mmol/L Normal 21.0-32.0 [facility] Comment on above: Order Comment: TSH Performed By: #### L 500.2500 #### [facility] [address] [place], [address] Creatinine [Mass/Vol] 0.76 mg/dL Normal 0.70-1.20 [facility] Comment on above: Order Comment: TSH Performed By: #### L 500.2500 #### [facility] [address] [place], [address] GAP 12 Normal 5-15 [facility] Comment on above: Order Comment: TSH Performed By: #### L 500.2500 #### [facility] [address] [place], [address] GFR/1.73 sq M.predicted among non-blacks MDRD (S/P/Bld) [Vol rate/Area] 94 mL/min/{1.73_m2} Normal >60 [facility] Comment on above: Order Comment: TSH Result Comment: mL/m in/1.73m2 CKD-EPI Creatinine Equation (2020) Performed By: #### L 500.2500 #### [facility] [address] [place], [address] Globulin (S) [Mass/Vol] 3.5 g/dL Normal 2.2-4.2 [facility] Comment on above: Order Comment: TSH Performed By: #### L 500.2500 #### [facility] [address] [place], [address] Glucose [Mass/Vol] 117 mg/dL High 70-99 [facility] Comment on above: Order Comment: TSH Performed By: #### L 500.2500 #### [facility] [address] [place], [address] Potassium [Moles/Vol] 4.6 mmol/L Normal 3.3-5.1 [facility] Comment on above: Order Comment: TSH Performed By: #### L 500.2500 #### [facility] [address] [place], [address] Sodium [Moles/Vol] 138 mmol/L Normal 133-145 [facility] Comment on above: Order Comment: TSH Performed By: #### L 500.2500 #### [facility] [address] [place], [address] T PROT 7.7 g/dL Normal 5.9-8.4 [facility] Comment on above: Order Comment: TSH Performed By: #### L 500.2500 #### [facility] [address] [place], [address] Urea nitrogen [Mass/Vol] 13 mg/dL Normal 4-19 [facility] Comment on above: Order Comment: TSH Performed By: #### L 500.2500 #### [facility] [address] [place], [address] Eosinophil percentageOrdered By: Jovany Brush on 09-01-2024 Eosinophils/100 WBC (Bld) 1.6 % 0-5 [facility] Erythrocyte distribution wid th (RBC) [Ratio]Ordered By: Jovayn Brush on 09-01-2024 Erythrocyte distribution width (RBC) [Entitic vol] 48.5 fL High 35.1-43.9 [facility] Erythrocyte distribution wid th ratioOrdered By: Jovany Brush on 09-01-2024 Erythrocyte distribution width (RBC) [Ratio] 18.0 % High 11.6-14.6 [facility] Erythrocyte distribution wid th standard deviationOrdered By: Jovany Brush on 09-01-2024 Erythrocyte distribution width (RBC) [Ratio] 48.5 fl High 35.1-43.9 [facility] GFR/1.73 sq M.predicted qiana g non-blacks MDRD (S/P/Bld) [Vol rate/Area]Ordered By: Jovany Brush on 09-01-2024 Estimated GFR (MDRD) Non-Af Amer 94 >60 [facility] Comment on above: mL/min/1.73m2 CKD-EP I Creatinine Equation (2020) Glomerular filtration rate ( GFR) estimation/1.73 sq m using serum, plasma, or whole bOrdered By: Jovany Brush on 09-01-2024 GFR/1.73 sq M.predicted among non-blacks MDRD (S/P/Bld) [Vol rate/Area] 94 mL/min/{1.73_m2} >60 [facility] Comment on above: mL/min/1.73m2 CKD-EP I Creatinine Equation (2020) Hematocrit Auto (Bld) [Volum e fraction]Ordered By: Jovany Brush on 09-01-2024 Hematocrit (Bld) [Volume fraction] 39.5 % Low 40-54 [facility] Hemoglobin measurementOrdere d By: Jovany Brush on 09-01-2024 Hemoglobin (Bld) [Mass/Vol] 11.8 g/dL Low 13.0-16.5 [facility] Hepatitis C Antibodyon 09-01 Hepatitis C Ab Non-Reactive Normal Nonreactive [facility] Comment on above: Result Comment: Reac tive: Presumptive evidence of antibodies to HCV. Follow CDC recommendations for supplemental testing. Non-Reactive: Antibodies to HCV were not detected; does not exclude the possibility of exposure to HCV Reactive Results are presumptive evidence of antibodies to HCV. Follow CDC recommendations for supplemental testing. Order confirmation testing: HCV Quant by PCR testing - HCVPCR #[id number] Non Reactive: < 0.8 Equivocal: >/= 0.8 to < 1.0 Reactive: >/= 1.0 The CDC requires that a reactive/equivocal HCV antibody result be sent out for confirmation. HCV Quant by PCR testing. Performed By: #### L 500.2500 #### [facility] [address] [place], [address] Hepatitis C antibodyOrdered By: Jovany Brush on 09-01-2024 Hepatitis C Antibody Non-Reactive Nonreactive [facility] Comment on above: Reactive: Presumptiv e evidence of antibodies to HCV. Follow CDC recommendations for supplemental testing.Non-Reactive: Antibodies to HCV were not detected; does not exclude the possibility of exposure to HCVReactive Results are presumptive evidence of antibodies to HCV. Follow CDC recommendations for supplemental testing.Order confirmation testing: HCV Quant by PCR testing - HCVPCR #[id number] Non Reactive: < 0.8 Equivocal: >/= 0.8 to < 1.0 Reactive: >/= 1.0The CDC requires that a reactive/equivocal HCV antibody result be sent out for confirmation. HCV Quant by PCR testing. Immature granulocytes/100 WB C Auto (Bld)Ordered By: Jovany Brush on 09-01-2024 Immature granulocytes/100 WBC (Bld) 0.500 % 0.0-0.9 [facility] Comment on above: IG% - Immature Granu locytes (promyelocytes, myelocytes and metamyelocytes) > 1% indicates that a LEFT SHIFT is Present. LDL calc ser/plasOrdered By: Jovany Brush on 09-01-2024 Cholesterol in LDL [Mass/Vol] 101 mg/dL [facility] Comment on above: Wngwnsumvp=278-677 m g/dL & Higher Szbi=079 mg/dL or greater LDL Cholesterol, Calculated 101 mg/dL [facility] Comment on above: Fyiprxlvyd=836-172 m g/dL & Higher Xacx=733 mg/dL or greater Laboratory - Chemistry and C hemistry - challengeOrdered By: Jovany Brush on 09-01-2024 AST [Catalytic activity/Vol] 26 U/L <38 [facility] Lipid Profileon 09-01-2024 CHOL:HDL 4.48 Normal [facility] Comment on above: Performed By: #### L 500.2500 #### [facility] [address] [place], [place], [address] Cholesterol [Mass/Vol] 165 mg/dL Normal <=200 [facility] Comment on above: Result Comment: Chol esterol level, Desirable <200 mg/dL Borderline high cholesterol 200-239 mg/dL High cholesterol >=240 mg/dL Recommendations of the NCEP Adult Treatment Panel for the following risk-cutoff thresholds for the [place] population. Performed By: #### L 500.2500 #### [facility] [address] [place], [address] Cholesterol in HDL [Mass/Vol] 37 mg/dL Low [facility] Comment on above: Result Comment: Blanca onal Cholesterol Education Program (NCEP) guidelines: <40 mg/dL: Low HDL-cholesterol (major risk factor for CHD) >= 60 mg/dL: High HDL-cholesterol (negative risk factor for CHD) HDL-cholesterol is affected by a number of factors, e.g. smoking, exercise, hormones, sex and age. Performed By: #### L 500.2500 #### [facility] [address] [place], [address] Cholesterol in LDL [Mass/Vol] 101 mg/dL Normal [facility] Comment on above: Result Comment: Bord awqdjj=592-825 mg/dL Higher Qikk=843 mg/dL or greater Performed By: #### L 500.2500 #### [facility] [address] [place], [address] Cholesterol in VLDL [Mass/Vol] 27 mg/dL Normal 5-40 [facility] Comment on above: Performed By: #### L 500.2500 #### [facility] [address] [place], [address] Triglyceride [Mass/Vol] 136 mg/dL Normal [facility] Comment on above: Result Comment: The drugs N-Acetylcysteine and Metamizole may falsely depress this assay. Normal range: <150 mg/dL Borderline High: 150-199 mg/dL High: 200-499 mg/dL Very High: >500 mg/dL Performed By: #### L 500.2500 #### [facility] [address] [place], [address] Lymphocytes Auto (Unsp spec) [#/Vol]Ordered By: Jovany Brush on 09-01-2024 Lymphocytes (Bld) [#/Vol] 1.42 10*3/uL 0.83-4.51 [facility] Lymphocytes/100 WBC Auto (Un sp spec)Ordered By: Jovany Brush on 09-01-2024 Lymphocytes/100 WBC (Bld) 11.7 % Low 19-41 [facility] MCV (mean corpuscular volume ) determinationOrdered By: Jovany Brush on 09-01-2024 MCV (RBC) [Entitic vol] 76.0 fL Low 80-94 [facility] Mean corpuscular hemoglobin (MCH) determinationOrdered By: Jovany Brush on 09-01-2024 MCH (RBC) [Entitic mass] 22.7 pg Low 27.0-32.0 [facility] Mean corpuscular hemoglobin concentration (MCHC) determinationOrdered By: Jovany Brush on 09-01-2024 MCHC (RBC) [Mass/Vol] 29.9 g/dL Low 32-36 [facility] Mean platelet volume determi nationOrdered By: Jovany Brush on 09-01-2024 Platelet mean volume (Bld) [Entitic vol] 9.2 fL 6.2-12.0 [facility] Monocyte percentageOrdered B y: Jovany Brush on 09-01-2024 Monocytes/100 WBC (Bld) 8.2 % 0-10 [facility] Neutrophil percentageOrdered By: Jovany Brush on 09-01-2024 Neutrophils/100 WBC (Bld) 77.3 % High 47-70 [facility] Nucleated red blood cell per centageOrdered By: Jovany Brush on 09-01-2024 Nucleated RBC/100 WBC (Bld) [Ratio] 0 % 0-5 [facility] Platelet countOrdered By: Dharmesh Brush on 09-01-2024 Platelets (Bld) [#/Vol] 424 10*3/uL 150-450 [facility] Potassium (Unsp spec) [Mass/ Vol]Ordered By: Jovany Brush on 09-01-2024 Potassium [Moles/Vol] 4.6 mmol/L 3.3-5.1 [facility] Potassium measurement (mass/ volume)Ordered By: Jovany Brush on 09-01-2024 Potassium (Unsp spec) [Mass/Vol] 4.6 mmol/L 3.3-5.1 [facility] RBC Auto (Bld) [#/Vol]Ordere d By: Jovany Brush on 09-01-2024 RBC (Bld) [#/Vol] 5.20 10*6/uL 4.6-6.2 [facility] Screening total cholesterol/ high density lipoprotein (HDL) cholesterol ratioOrdered By: Jovany Brush on 09-01-2024 Cholesterol.total/Molly sterol in HDL [Mass ratio] 4.48 {ratio} [facility] Serum creatinine measurement (mass/volume)Ordered By: Jovany Brush on 09-01-2024 Creatinine [Mass/Vol] 0.76 mg/dL 0.70-1.20 [facility] Serum globulin measurementOr dered By: Jovany Brush 09-01-2024 Globulin (S) [Mass/Vol] 3.5 g/dL 2.2-4.2 [facility] Serum glucose measurement (m ass/volume)Ordered By: Jovany Brush 09-01-2024 Glucose [Mass/Vol] 117 mg/dL High 70-99 [facility] Serum or plasma alanine pugh otransferase (ALT) measurementOrdered By: Jovany Brush 09-01-2024 ALT [Catalytic activity/Vol] 21 U/L <47 [facility] Serum or plasma albumin werner urement (mass/volume)Ordered By: Jovany Brush 09-01-2024 Albumin [Mass/Vol] 4.2 g/dL 3.4-4.8 [facility] Serum or plasma albumin/glob ulin mass ratioOrdered By: Jovany Brush 09-01-2024 Albumin/Globulin [Mass ratio] 1.2 {ratio} 0.9-2.4 [facility] Serum or plasma alkaline damien sphatase measurementOrdered By: Jovany Brush 09-01-2024 ALP [Catalytic activity/Vol] 144 U/L High 40-129 [facility] Serum or plasma calcium werner urement (mass/volume)Ordered By: Jovany Brush 09-01-2024 Calcium [Mass/Vol] 9.7 mg/dL 7.6-11.0 [facility] Serum or plasma cholesterol in HDL measurement (mass/volume)Ordered By: Jovany Brush on 09-01-2024 Cholesterol in HDL [Mass/Vol] 37 mg/dL Low >40 [facility] Comment on above: National Cholesterol Education Program (NCEP) guidelines:<40 mg/dL: Low HDL-cholesterol (major risk factor for CHD)>= 60 mg/dL: High HDL-cholesterol (negative risk factor for CHD)HDL-cholesterol is affected by a number of factors, e.g. smoking, exercise, hormones, sex and age. Serum or plasma cholesterol measurement (mass/volume)Ordered By: Jovany Brush on 09-01-2024 Cholesterol [Mass/Vol] 165 mg/dL <201 [facility] Comment on above: Cholesterol level, D esirable <200 mg/dLBorderline high cholesterol 200-239 mg/dLHigh cholesterol >=240 mg/dLRecommendations of the NCEP Adult Treatment Panel for the following risk-cutoff thresholds for the [place] population. Serum or plasma urea nitroge n measurement (mass/volume)Ordered By: Jovany Brush 09-01-2024 Urea nitrogen [Mass/Vol] 13 mg/dL 4-19 [facility] Sodium levelOrdered By: Jovany Brush 09-01-2024 Sodium [Moles/Vol] 138 mmol/L 133-145 [facility] TSH DL <= 0.005 mIU/L QnOrde red By: Jovany Brush 09-01-2024 Thyroid Stimulating Hormone (TSH) 1.470 uIU/mL 0.300-4.200 [facility] TSH Qn 1.470 uIU/mL 0.300-4.200 [facility] Total proteinOrdered By: Jovany Brush 09-01-2024 Protein [Mass/Vol] 7.7 g/dL 5.9-8.4 [facility] Triglycerides measurementOrd ered By: Jovany Brush 09-01-2024 Triglyceride [Mass/Vol] 136 mg/dL <199 [facility] Comment on above: The drugs N-Acetylcy steine and Metamizole may falsely depress this assay. Normal range: <150 mg/dLBorderline High: 150-199 mg/dLHigh: 200-499 mg/dLVery High: >500 mg/dL Vitamin D, 25-hydroxyOrdered By: Jovany Brush on 09-01-2024 Vitamin D 25-Hydroxy 28.1 ng/mL Low 30-100 [facility] Comment on above: Vitamin D StatusDefi ciency: <20 ng/mL (50nmol/L)Insufficiency: 20-30 ng/mL (50-75 nmol/L)Sufficiency: 30-100 ng/mL (75-250 nmol/L)Toxicity: >100 ng/mL (>250 nmol/L) Vitamin D,25 Hydroxyon 09-01 Vitamin D 25-OH 28.1 ng/mL Low 30-100 [facility] Comment on above: Result Comment: Daysi min D Status Deficiency: <20 ng/mL (50nmol/L) Insufficiency: 20-30 ng/mL (50-75 nmol/L) Sufficiency: 30-100 ng/mL (75-250 nmol/L) Toxicity: >100 ng/mL (>250 nmol/L) Performed By: #### L 500.2500 #### [facility] [address] [place], [place], [address] White blood cell (WBC) count Ordered By: Jovany Brush on 09-01-2024 WBC (Bld) [#/Vol] 12.1 10*3/uL High 4.4-11.0 [facility] Anion gap in Serum or Plasma Ordered By: Maikel Liang on 08-30-2024 Anion gap [Moles/Vol] 11 mmol/L - [facility] BUN/creatinine ratioOrdered By: Maikel Liang on 08-30-2024 Urea nitrogen/Creatinine [Mass ratio] 17.2 mg/mg - [facility] Basic Metabolic Profile (BMP )on 08-30-2024 BUN/CRE 17.2 RATIO Normal 03-14 [facility] Comment on above: Performed By: #### L 100.0500 #### [facility] [address] [place], [place], [address] Calcium [Mass/Vol] 9.3 mg/dL Normal 7.6-11.0 [facility] Comment on above: Performed By: #### L 100.0500 #### [facility] [address] [place], [address] Chloride [Moles/Vol] 102 mmol/L Normal 98-108 [facility] Comment on above: Performed By: #### L 100.0500 #### [facility] [address] [place], [address] CO2 [Moles/Vol] 24.9 mmol/L Normal 21.0-32.0 [facility] Comment on above: Performed By: #### L 100.0500 #### [facility] [address] [place], [address] Creatinine [Mass/Vol] 0.76 mg/dL Normal 0.70-1.20 [facility] Comment on above: Performed By: #### L 100.0500 #### [facility] [address] [place], [address] GAP 11 Normal 5-15 [facility] Comment on above: Performed By: #### L 100.0500 #### [facility] [address] [place], [address] GFR/1.73 sq M.predicted among non-blacks MDRD (S/P/Bld) [Vol rate/Area] 94 mL/min/{1.73_m2} Normal >60 [facility] Comment on above: Result Comment: mL/m in/1.73m2 CKD-EPI Creatinine Equation (2020) Performed By: #### L 100.0500 #### [facility] [address] [place], [address] Glucose [Mass/Vol] 144 mg/dL High 70-99 [facility] Comment on above: Performed By: #### L 100.0500 #### [facility] [address] [place], [address] Potassium [Moles/Vol] 4.5 mmol/L Normal 3.3-5.1 [facility] Comment on above: Performed By: #### L 100.0500 #### [facility] [address] [place], [address] Sodium [Moles/Vol] 138 mmol/L Normal 133-145 [facility] Comment on above: Performed By: #### L 100.0500 #### [facility] [address] [place], [address] Urea nitrogen [Mass/Vol] 13 mg/dL Normal 4-19 [facility] Comment on above: Performed By: #### L 100.0500 #### [facility] [address] [place], [address] Carbon dioxide, total [Moles /volume] in Central venous bloodOrdered By: Maikel Liang on 08-30-2024 CO2 [Moles/Vol] 24.9 mmol/L 21.0-32.0 [facility] Chloride assayOrdered By: Mary Kate Liang on 08-30-2024 Chloride [Moles/Vol] 102 mmol/L 98-108 [facility] GFR/1.73 sq M.predicted qiana g non-blacks MDRD (S/P/Bld) [Vol rate/Area]Ordered By: Maikel Liang on 08-30-2024 Estimated GFR (MDRD) Non-Af Amer 94 >60 [facility] Comment on above: mL/min/1.73m2 CKD-EP I Creatinine Equation (2020) Glomerular filtration rate ( GFR) estimation/1.73 sq m using serum, plasma, or whole bOrdered By: Maikel Linag on 08-30-2024 GFR/1.73 sq M.predicted among non-blacks MDRD (S/P/Bld) [Vol rate/Area] 94 mL/min/{1.73_m2} >60 [facility] Comment on above: mL/min/1.73m2 CKD-EP I Creatinine Equation (2020) Potassium (Unsp spec) [Mass/ Vol]Ordered By: Maikel Liang on 08-30-2024 Potassium [Moles/Vol] 4.5 mmol/L 3.3-5.1 [facility] Potassium measurement (mass/ volume)Ordered By: Maikel Liang on 08-30-2024 Potassium (Unsp spec) [Mass/Vol] 4.5 mmol/L 3.3-5.1 [facility] Serum creatinine measurement (mass/volume)Ordered By: Maikel Liang on 08-30-2024 Creatinine [Mass/Vol] 0.76 mg/dL 0.70-1.20 [facility] Serum glucose measurement (m ass/volume)Ordered By: Maikel Liang on 08-30-2024 Glucose [Mass/Vol] 144 mg/dL High 70-99 [facility] Serum or plasma calcium werner urement (mass/volume)Ordered By: Maikel Liang on 08-30-2024 Calcium [Mass/Vol] 9.3 mg/dL 7.6-11.0 [facility] Serum or plasma urea nitroge n measurement (mass/volume)Ordered By: Maikel Liang on 08-30-2024 Urea nitrogen [Mass/Vol] 13 mg/dL 4-19 [facility] Sodium levelOrdered By: Isabela Liang on 08-30-2024 Sodium [Moles/Vol] 138 mmol/L 133-145 [facility] 12 Lead EKG performed by [facility] on 08-20-2024 12 Lead EKG performed by [facility] [address] [place] [address] 12 Lead EKG performed by [facility] 08/20/24 1011 MR#: [id number] Acct: [id number] Name: ANGI JACKSON Rep #: [id number] : 1950 74 From: Maikel WADE Attending Dr: MAURO Ramos Status: DEP AM B Ordering Dr: Maikel Liang Date: 08/20/24 [place] [facility] [place]: M C Admitted: [facility]/12 Lead EKG performed by [facility] ECG Report Interpretation ------Atrial fibrillation with PVCsElectronically signed on 08/24/2024 at 07:46 by Fco [employer] Version [id number] 08/24/24 0751 Date Maikel WADE CC: PRAKASH Harper Date Dictated: 08/20/24 101 Date Transcribed: 08/20/241010 Infantry Officer: BALDOMERO Signed Normal [facility] Anion gap in Serum or Plasma Ordered By: Maikel Liang on 08-20-2024 Anion gap [Moles/Vol] 14 mmol/L 5-15 [facility] BUN/creatinine ratioOrdered By: Maikel Liang on 08-20-2024 Urea nitrogen/Creatinine [Mass ratio] 22.1 mg/mg High 10-20 [facility] Basic Metabolic Profile (BMP )on 08-20-2024 BUN/CRE 22.1 RATIO High 10-20 [facility] Comment on above: Performed By: #### L 501.9985 #### [facility] [address] [place], [address] Calcium [Mass/Vol] 9.0 mg/dL Normal 7.6-11.0 [facility] Comment on above: Performed By: #### L 501.9985 #### [facility] [address] [place], [address] Chloride [Moles/Vol] 103 mmol/L Normal 98-108 [facility] Comment on above: Performed By: #### L 501.9985 #### [facility] [address] [place], [address] CO2 [Moles/Vol] 21.6 mmol/L Normal 21.0-32.0 [facility] Comment on above: Performed By: #### L 501.9985 #### [facility] [address] [place], [address] Creatinine [Mass/Vol] 0.73 mg/dL Normal 0.70-1.20 [facility] Comment on above: Performed By: #### L 501.9985 #### [facility] [address] [place], [address] GAP 14 Normal 5-15 [facility] Comment on above: Performed By: #### L 501.9985 #### [facility] [address] [place], [address] GFR/1.73 sq M.predicted among non-blacks MDRD (S/P/Bld) [Vol rate/Area] 95 mL/min/{1.73_m2} Normal >60 [facility] Comment on above: Result Comment: mL/m in/1.73m2 CKD-EPI Creatinine Equation (2020) Performed By: #### L 501.9985 #### [facility] [address] [place], [address] Glucose [Mass/Vol] 117 mg/dL High 70-99 [facility] Comment on above: Performed By: #### L 501.9985 #### [facility] [address] [place], [address] Potassium [Moles/Vol] 4.4 mmol/L Normal 3.3-5.1 [facility] Comment on above: Performed By: #### L 501.9985 #### [facility] [address] [place], [address] Sodium [Moles/Vol] 139 mmol/L Normal 133-145 [facility] Comment on above: Performed By: #### L 501.9985 #### [facility] [address] [place], [address] Urea nitrogen [Mass/Vol] 16 mg/dL Normal 4-19 [facility] Comment on above: Performed By: #### L 501.9985 #### [facility] [address] [place], [address] Carbon dioxide, total [Moles /volume] in Central venous bloodOrdered By: Maikel Liang on 08-20-2024 CO2 [Moles/Vol] 21.6 mmol/L 21.0-32.0 [facility] Cardiology Visit Reporton Cardiology Visit Report [facility] [address] [place] [address] OFFICE VISIT Date of Service: 08/20/24 MR#: [id number] Acct: [id number] Name: ANGI JACKSON Rep #: [id number] : 1950 Provider: MARUO Ramos Age/Sex: 74/M Location: [facility] Status: Signed HPI HPI History of Present [...] morning of 08/14. Patient was hospitalized at [facility] 08/14 - 08/16/2024 for CHF. Patient was [...] Monitor Intake Visit Reasons: S/P OUSMANE 08/16 Epic Professional Required: No Is patient in pain?: No Allergies codeine Allergy (Verified 08/20/24 10:06) HEART RATE IRREGULAR rivaroxaban (From Xarelto) Adverse Reaction (Verified 08/20/24 10:06) Bleeding Medications ???Medication ???Instructions ???Recorded ???Confirmed ???Type magnesium oxide 400 mg PO QHS Check with primary 1 07/09/17 08/20/24 History doctor multivitamin,tx-iron -minerals 1 tab PO DAILY Check with primary [...] istory release (more content not included)... Normal [facility] Chest PA and Lateralon 08-20 Chest PA and Lateral [facility] Imaging Services [address] [place] [id number] Chest PA and Lateral MR#: [id number] Acct: [id number] Name: ANGI JACKSON Rep #: [id number] : 1950 M 74 From: Matteo Saba MD PCP: PRAKASH Lanier Status: REG CLI Study: Chest PA and Lateral Date of Exam: 08/20/24 Exam# [id number] Ordering Dr: Maikel Liang EXAM: XR Chest, 2 Views CLINICAL INDICATION: SHORTNESS OF BREATH TECHNIQUE: Frontal and lateral views of the chest. COMPARISON: No relevant prior studies available. FINDINGS: LUNGS AND PLEURAL SPACES: See below. HEART: Cardiomegaly with mild congestion. MEDIASTINUM: Unremarkable. Normal mediastinal contour. BONES/JOINTS: Unremarkable. No acute fracture. RAD/Chest PA and Lateral IMPRESSION: Cardiomegaly with mild congestion. Reading [facility] CC: PRAKASH Harper; MAURO Ramos Infantry Officer: Signed Normal [facility] Chloride assayOrdered By: Mary Kate Liang on 08-20-2024 Chloride [Moles/Vol] 103 mmol/L 98-108 [facility] GFR/1.73 sq M.predicted qiana g non-blacks MDRD (S/P/Bld) [Vol rate/Area]Ordered By: Maikel Liang on 08-20-2024 Estimated GFR (MDRD) Non-Af Amer 95 >60 [facility] Comment on above: mL/min/1.73m2 CKD-EP I Creatinine Equation (2020) Glomerular filtration rate ( GFR) estimation/1.73 sq m using serum, plasma, or whole bOrdered By: Maikel Liang on 08-20-2024 GFR/1.73 sq M.predicted among non-blacks MDRD (S/P/Bld) [Vol rate/Area] 95 mL/min/{1.73_m2} >60 [facility] Comment on above: mL/min/1.73m2 CKD-EP I Creatinine Equation (2020) L503.7505on 08-20-2024 Natriuretic peptide B (Bld) [Mass/Vol] 1075 pg/mL Normal <=1800 [facility] Comment on above: Result Comment: Hear t Failure Unlikely: < 300 pg/mL Heart Failure Likely < 50 Years: > 450 pg/mL 50-75 Years: > 900 pg/mL >75 Years: > 1800 pg/mL Performed By: #### L 501.9985 #### [facility] [address], [address] Laboratory - Chemistry and C hemistry - challengeOrdered By: Maikel Liang on 08-20-2024 Natriuretic peptide B (Bld) [Mass/Vol] 1075 pg/mL <1800 [facility] Comment on above: Heart Failure Unlike ly: < 300 pg/mLHeart Failure Likely< 50 Years: > 450 pg/mL50-75 Years: > 900 pg/mL>75 Years: > 1800 pg/mL Potassium (Unsp spec) [Mass/ Vol]Ordered By: Maikel Liang on 08-20-2024 Potassium [Moles/Vol] 4.4 mmol/L 3.3-5.1 [facility] Potassium measurement (mass/ volume)Ordered By: Maikel Liang on 08-20-2024 Potassium (Unsp spec) [Mass/Vol] 4.4 mmol/L 3.3-5.1 [facility] Serum creatinine measurement (mass/volume)Ordered By: Maikel Liang on 08-20-2024 Creatinine [Mass/Vol] 0.73 mg/dL 0.70-1.20 [facility] Serum glucose measurement (m ass/volume)Ordered By: Maikel Liang on 08-20-2024 Glucose [Mass/Vol] 117 mg/dL High 70-99 [facility] Serum or plasma calcium werner urement (mass/volume)Ordered By: Maikel Liang on 08-20-2024 Calcium [Mass/Vol] 9.0 mg/dL 7.6-11.0 [facility] Serum or plasma urea nitroge n measurement (mass/volume)Ordered By: Maikel Liang on 08-20-2024 Urea nitrogen [Mass/Vol] 16 mg/dL 4-19 [facility] Sodium levelOrdered By: Isabela Liang on 08-20-2024 Sodium [Moles/Vol] 139 mmol/L 133-145 [facility] .Auto Diffon 08-16-2024 Basophil, Absolute 0.1 10 3/mcL Normal 0.0-0.2 [facility] Comment on above: Performed By: #### A PTT, MG, GFR, PBNP, CBC, TROPHS, PRO, ADIFF, BMP, ANEU, MDW #### [address] [address] Basophils/100 WBC (Bld) 1.0 % Normal 0.0-2.5 [facility] Comment on above: Performed By: #### A PTT, MG, GFR, PBNP, CBC, TROPHS, PRO, ADIFF, BMP, ANEU, MDW #### [address] [address] Eosinophil, Absolute 0.2 10 3/mcL Normal 0.0-0.7 [facility] Comment on above: Performed By: #### A PTT, MG, GFR, PBNP, CBC, TROPHS, PRO, ADIFF, BMP, ANEU, MDW #### [address] [address] Eosinophils/100 WBC (Bld) 1.7 % Normal 0.0-7.0 [facility] Comment on above: Performed By: #### A PTT, MG, GFR, PBNP, CBC, TROPHS, PRO, ADIFF, BMP, ANEU, MDW #### [address] [address] Lymphocyte, Absolute 1.5 10 3/mcL Normal 0.9-4.3 [facility] Comment on above: Performed By: #### A PTT, MG, GFR, PBNP, CBC, TROPHS, PRO, ADIFF, BMP, ANEU, MDW #### [address] [address] Lymphocytes/100 WBC (Bld) 13.5 % Low 20.0-40.0 [facility] Comment on above: Performed By: #### A PTT, MG, GFR, PBNP, CBC, TROPHS, PRO, ADIFF, BMP, ANEU, MDW #### [address] [address] Monocyte, Absolute 0.8 10 3/mcL Normal 0.1-1.4 [facility] Comment on above: Performed By: #### A PTT, MG, GFR, PBNP, CBC, TROPHS, PRO, ADIFF, BMP, ANEU, MDW #### [address] [address] Monocytes/100 WBC (Bld) 7.0 % Normal 2.0-13.0 [facility] Comment on above: Performed By: #### A PTT, MG, GFR, PBNP, CBC, TROPHS, PRO, ADIFF, BMP, ANEU, MDW #### [address] [address] Neutrophils/100 WBC (Bld) 76.8 % High 50.0-75.0 [facility] Comment on above: Performed By: #### A PTT, MG, GFR, PBNP, CBC, TROPHS, PRO, ADIFF, BMP, ANEU, MDW #### [address] [address] .GFRon 08-16-2024 Estimated Glomerular Filtration Rate 98 ml/min/1.73sqm Normal [facility] Comment on above: Result Comment: Stages of [...] TROPHS, PRO, ADIFF, BMP, ANEU, RISA #### [address] [address] .NEUABSon 08-16-2024 Neutrophil, Absolute 8.5 10 3/mcL High 2.3-8.1 [facility] Comment on above: Performed By: #### A PTT, MG, GFR, PBNP, CBC, TROPHS, PRO, ADIFF, BMP, ANEU, W #### [address] [address] BMPon 08-16-2024 BUN/Creatinine Ratio 17 ratio Normal 7-27 [facility] Comment on above: Performed By: #### A PTT, MG, GFR, PBNP, CBC, TROPHS, PRO, ADIFF, BMP, ANEU, MDW #### [address] [address] Calcium [Mass/Vol] 8.7 mg/dL Normal 8.4-10.2 [facility] Comment on above: Performed By: #### A PTT, MG, GFR, PBNP, CBC, TROPHS, PRO, ADIFF, BMP, ANEU, RISA #### [address] [address] Chloride [Moles/Vol] 104 mmol/L Normal 98-107 [facility] Comment on above: Performed By: #### A PTT, MG, GFR, PBNP, CBC, TROPHS, PRO, ADIFF, BMP, ANEU, MDW #### [address] [address] CO2 [Moles/Vol] 29 mmol/L Normal 23-31 [facility] Comment on above: Performed By: #### A PTT, MG, GFR, PBNP, CBC, TROPHS, PRO, ADIFF, BMP, ANEU, MDW #### [address] [address] Creatinine [Mass/Vol] 0.66 mg/dL Low 0.70-1.30 [facility] Comment on above: Result Comment: Test ing performed on Siemens Dimension EXL analyzer using a modified kinetic Magnolia technique. Performed By: #### A PTT, MG, GFR, PBNP, CBC, TROPHS, PRO, ADIFF, BMP, ANEU, MDW #### [address] [address] Electrolyte Balance 6.0 mEq/L Normal 4.0-15.0 [facility] Comment on above: Performed By: #### A PTT, MG, GFR, PBNP, CBC, TROPHS, PRO, ADIFF, BMP, ANEU, MDW #### [address] [address] Glucose [Mass/Vol] 124 mg/dL High 83-110 [facility] Comment on above: Performed By: #### A PTT, MG, GFR, PBNP, CBC, TROPHS, PRO, ADIFF, BMP, ANEU, MDW #### [address] [address] Potassium [Moles/Vol] 3.4 mmol/L Low 3.5-5.1 [facility] Comment on above: Performed By: #### A PTT, MG, GFR, PBNP, CBC, TROPHS, PRO, ADIFF, BMP, ANEU, MDW #### [address] [address] Sodium [Moles/Vol] 139 mmol/L Normal 136-145 [facility] Comment on above: Performed By: #### A PTT, MG, GFR, PBNP, CBC, TROPHS, PRO, ADIFF, BMP, ANEU, MDW #### [address] [address] Urea nitrogen [Mass/Vol] 11 mg/dL Normal 7-18 [facility] Comment on above: Performed By: #### A PTT, MG, GFR, PBNP, CBC, TROPHS, PRO, ADIFF, BMP, ANEU, MDW #### [address] [address] CBCon 08-16-2024 Erythrocyte distribution width (RBC) [Ratio] 18.9 % High 11.5-15.5 [facility] Comment on above: Performed By: #### A PTT, MG, GFR, PBNP, CBC, TROPHS, PRO, ADIFF, BMP, ANEU, MDW #### [address] [address] Hematocrit (Bld) [Volume fraction] 34.9 % Low 40.0-52.0 [facility] Comment on above: Performed By: #### A PTT, MG, GFR, PBNP, CBC, TROPHS, PRO, ADIFF, BMP, ANEU, MDW #### [address] [address] Hgb 11.1 G/dL Low 13.0-17.5 [facility] Comment on above: Performed By: #### A PTT, MG, GFR, PBNP, CBC, TROPHS, PRO, ADIFF, BMP, ANEU, MDW #### [address] [address] MCH (RBC) [Entitic mass] 23.3 pg Low 27.0-33.0 [facility] Comment on above: Performed By: #### A PTT, MG, GFR, PBNP, CBC, TROPHS, PRO, ADIFF, BMP, ANEU, MDW #### [address] [address] MCHC 31.7 G/dL Low 32.0-36.0 [facility] Comment on above: Performed By: #### A PTT, MG, GFR, PBNP, CBC, TROPHS, PRO, ADIFF, BMP, ANEU, MDW #### [address] [address] MCV (RBC) [Entitic vol] 73.5 fL Low 81.0-100.0 [facility] Comment on above: Performed By: #### A PTT, MG, GFR, PBNP, CBC, TROPHS, PRO, ADIFF, BMP, ANEU, MDW #### [address] [address] Platelet 329 10 3/mcL Normal 150-450 [facility] Comment on above: Performed By: #### A PTT, MG, GFR, PBNP, CBC, TROPHS, PRO, ADIFF, BMP, ANEU, MDW #### [address] [address] Platelet mean volume (Bld) [Entitic vol] 7.7 fL Normal 6.4-10.5 [facility] Comment on above: Performed By: #### A PTT, MG, GFR, PBNP, CBC, TROPHS, PRO, ADIFF, BMP, ANEU, MDW #### [address] [address] RBC 4.75 10 6/mcL Normal 4.50-6.00 [facility] Comment on above: Performed By: #### A PTT, MG, GFR, PBNP, CBC, TROPHS, PRO, ADIFF, BMP, ANEU, MDW #### [address] [address] WBC 11.1 10 3/mcL High 4.5-10.8 [facility] Comment on above: Performed By: #### A PTT, MG, GFR, PBNP, CBC, TROPHS, PRO, ADIFF, BMP, ANEU, MDW #### [address] [address] MGon 08-16-2024 Magnesium [Mass/Vol] 2.1 mg/dL Normal 1.8-2.4 [facility] Comment on above: Performed By: #### A PTT, MG, GFR, PBNP, CBC, TROPHS, PRO, ADIFF, ZAHIRA, RISA ORELLANA #### [facility] [place] [address] [place], [place] [address] NM MYOCARDIAL SPECT STRESS/R ESTon 08-16-2024 NM MYOCARDIAL SPECT STRESS/REST ORIGINAL NM MYOCARDIAL SPECT STRESS/REST CLINICAL STATEMENT: cp TECHNIQUE: Lexiscan dose:0.4 mg Radiopharmaceutical (stress): Tc-99m Sestamibi Dose:31.9 mCi Radiopharmaceutical (rest): Tc-99m Sestamibi Dose:10.6 mCi SPECT acquisition and processing Reconstruction and reorientation of SPECT images into short axis, vertical and horizontal long axis planes Quantitative LVEF assessment COMPARISON: 5 REPORT:LEFT ventricle appears normal in size. On [...] Date: 08/16/2024 3:22:17 PM Ordering Provider:Juliet Gasca [facility] PROon 08-16-2024 PT Coag (PPP) [Time] 24.4 s High 9.0-14.4 [facility] Comment on above: Order Comment: order ed secondary to warfarin order Performed By: #### A PTT, MG, GFR, PBNP, CBC, TROPHS, PRO, ADIFF, BMP, RISA ORELLANA #### [address] [address] PT International Ratio 2.1 Normal [facility] Comment on above: Order Comment: order ed secondary to warfarin order Result Comment: The [employer] (CHEST, 1992, 102:312S-25S) recommended therapeutic range for oral anticoagulant therapy is: LOW RISK: Prophylaxis of venous thrombosis INR: 2.0-3.0 Treatment of pulmonary embolism 2.0-3.0 Prevention of systemic embolism 2.0-3.0 HIGH RISK: Mechanical prosthetic valves 2.5-3.5 Performed By: #### A PTT, MG, GFR, PBNP, CBC, TROPHS, PRO, ADIFF, REYNA RODRIGES MDW #### [address] [address] TROPHSon 08-16-2024 High Sensitivity Troponin I 13 ng/L Normal 0-76 [facility] Comment on above: Result Comment: High Sensitive Troponin I Reference Ranges: Female: 0-51 ng/L Male: 0-76 ng/L Testing performed on LightPath Apps using a homogeneous sandwich chemiluminescent immunoassay based on Qnovo technology. Performed By: #### A PTT, MG, GFR, PBNP, CBC, TROPHS, PRO, ADIFF, REYNA RODRIGES MDW #### [address] [address] .Auto Diffon 08-15-2024 Basophil, Absolute 0.1 10 3/mcL Normal 0.0-0.2 [facility] Comment on above: Performed By: #### C BC, ANEU, TROPHS, GFR, MG, BMP, PRO, PBNP, ADIFF ####[address] [place], [place] [address] Basophils/100 WBC (Bld) 1.0 % Normal 0.0-2.5 [facility] Comment on above: Performed By: #### C BC, ANEU, TROPHS, GFR, MG, BMP, PRO, PBNP, ADIFF ####[address] [place], [place] [address] Eosinophil, Absolute 0.1 10 3/mcL Normal 0.0-0.7 [facility] Comment on above: Performed By: #### C BC, ANEU, TROPHS, GFR, MG, BMP, PRO, PBNP, ADIFF ####[address] [address] Eosinophils/100 WBC (Bld) 1.1 % Normal 0.0-7.0 [facility] Comment on above: Performed By: #### C BC, ANEU, TROPHS, GFR, MG, BMP, PRO, PBNP, ADIFF ####[address] [address] Lymphocyte, Absolute 1.4 10 3/mcL Normal 0.9-4.3 [facility] Comment on above: Performed By: #### C BC, ANEU, TROPHS, GFR, MG, BMP, PRO, PBNP, ADIFF ####[address] [address] Lymphocytes/100 WBC (Bld) 12.3 % Low 20.0-40.0 [facility] Comment on above: Performed By: #### C BC, ANEU, TROPHS, GFR, MG, BMP, PRO, PBNP, ADIFF ####[address] [address] Monocyte, Absolute 0.8 10 3/mcL Normal 0.1-1.4 [facility] Comment on above: Performed By: #### C BC, ANEU, TROPHS, GFR, MG, BMP, PRO, PBNP, ADIFF ####[address] [address] Monocytes/100 WBC (Bld) 6.6 % Normal 2.0-13.0 [facility] Comment on above: Performed By: #### C BC, ANEU, TROPHS, GFR, MG, BMP, PRO, PBNP, ADIFF ####[address] [address] Neutrophils/100 WBC (Bld) 79.0 % High 50.0-75.0 [facility] Comment on above: Performed By: #### C BC, ANEU, TROPHS, GFR, MG, BMP, PRO, PBNP, ADIFF ####[place] [address] [place], [place] [address] .GFRon 08-15-2024 Estimated Glomerular Filtration Rate 98 ml/min/1.73sqm Normal [facility] Comment on above: Result Comment: Stages of [...] TROPHS, GFR, MG, BMP, PRO, PBNP, ADIFF ####[facility] [place] [place], [place] [address] .NEUABSon 08-15-2024 Neutrophil, Absolute 9.3 10 3/mcL High 2.3-8.1 [facility] Comment on above: Performed By: #### C BC, ANEU, TROPHS, GFR, MG, BMP, PRO, PBNP, ADIFF ####[facility] [place] [place], [place] [address] BMPon 08-15-2024 BUN/Creatinine Ratio 20 ratio Normal 7-27 [facility] Comment on above: Performed By: #### C BC, ANEU, TROPHS, GFR, MG, BMP, PRO, PBNP, ADIFF ####[facility] [place] [place], [place] [address] Calcium [Mass/Vol] 8.6 mg/dL Normal 8.4-10.2 [facility] Comment on above: Performed By: #### C BC, ANEU, TROPHS, GFR, MG, BMP, PRO, PBNP, ADIFF ####[facility] [place] [place], [place] [address] Chloride [Moles/Vol] 103 mmol/L Normal 98-107 [facility] Comment on above: Performed By: #### C BC, ANEU, TROPHS, GFR, MG, BMP, PRO, PBNP, ADIFF ####[address] [place], [place] [address] CO2 [Moles/Vol] 28 mmol/L Normal 23-31 [facility] Comment on above: Performed By: #### C BC, ANEU, TROPHS, GFR, MG, BMP, PRO, PBNP, ADIFF ####[address] [place], [place] [address] Creatinine [Mass/Vol] 0.65 mg/dL Low 0.70-1.30 [facility] Comment on above: Result Comment: Test ing performed on Bookmate Dimension EXL analyzer using a modified kinetic Magnolia technique. Performed By: #### C BC, ANEU, TROPHS, GFR, MG, BMP, PRO, PBNP, ADIFF ####[address] [place], [place] [address] Electrolyte Balance 8.0 mEq/L Normal 4.0-15.0 [facility] Comment on above: Performed By: #### C BC, ANEU, TROPHS, GFR, MG, BMP, PRO, PBNP, ADIFF ####[address] [place], [place] [address] Glucose [Mass/Vol] 127 mg/dL High 83-110 [facility] Comment on above: Performed By: #### C BC, ANEU, TROPHS, GFR, MG, BMP, PRO, PBNP, ADIFF ####[address] [place], [place] [address] Potassium [Moles/Vol] 3.1 mmol/L Low 3.5-5.1 [facility] Comment on above: Performed By: #### C BC, ANEU, TROPHS, GFR, MG, BMP, PRO, PBNP, ADIFF ####[address] [place], [place] [address] Sodium [Moles/Vol] 139 mmol/L Normal 136-145 [facility] Comment on above: Performed By: #### C BC, ANEU, TROPHS, GFR, MG, BMP, PRO, PBNP, ADIFF ####[address] [address] [address] Urea nitrogen [Mass/Vol] 13 mg/dL Normal 7-18 [facility] Comment on above: Performed By: #### C BC, ANEU, TROPHS, GFR, MG, BMP, PRO, PBNP, ADIFF ####[place] [address] CBCon 08-15-2024 Erythrocyte distribution width (RBC) [Ratio] 18.6 % High 11.5-15.5 [facility] Comment on above: Performed By: #### C BC, ANEU, TROPHS, GFR, MG, BMP, PRO, PBNP, ADIFF ####[place] [address] Hematocrit (Bld) [Volume fraction] 34.9 % Low 40.0-52.0 [facility] Comment on above: Performed By: #### C BC, ANEU, TROPHS, GFR, MG, BMP, PRO, PBNP, ADIFF ####[place] [address] Hgb 11.1 G/dL Low 13.0-17.5 [facility] Comment on above: Performed By: #### C BC, ANEU, TROPHS, GFR, MG, BMP, PRO, PBNP, ADIFF ####[address] [address] MCH (RBC) [Entitic mass] 23.3 pg Low 27.0-33.0 [facility] Comment on above: Performed By: #### C BC, ANEU, TROPHS, GFR, MG, BMP, PRO, PBNP, ADIFF ####[place] [address] MCHC 31.7 G/dL Low 32.0-36.0 [facility] Comment on above: Performed By: #### C BC, ANEU, TROPHS, GFR, MG, BMP, PRO, PBNP, ADIFF ####[address] [place], [place] [address] MCV (RBC) [Entitic vol] 73.4 fL Low 81.0-100.0 [facility] Comment on above: Performed By: #### C BC, ANEU, TROPHS, GFR, MG, BMP, PRO, PBNP, ADIFF ####[address] [place], [place] [address] Platelet 330 10 3/mcL Normal 150-450 [facility] Comment on above: Performed By: #### C BC, ANEU, TROPHS, GFR, MG, BMP, PRO, PBNP, ADIFF ####[address] [place], [place] [address] Platelet mean volume (Bld) [Entitic vol] 7.4 fL Normal 6.4-10.5 [facility] Comment on above: Performed By: #### C BC, ANEU, TROPHS, GFR, MG, BMP, PRO, PBNP, ADIFF ####[address] [address] RBC 4.76 10 6/mcL Normal 4.50-6.00 [facility] Comment on above: Performed By: #### C BC, ANEU, TROPHS, GFR, MG, BMP, PRO, PBNP, ADIFF ####[address] [place], [place] [address] WBC 11.8 10 3/mcL High 4.5-10.8 [facility] Comment on above: Performed By: #### C BC, ANEU, TROPHS, GFR, MG, BMP, PRO, PBNP, ADIFF ####[address] [place], [place] [address] MGon 08-15-2024 Magnesium [Mass/Vol] 2.1 mg/dL Normal 1.8-2.4 [facility] Comment on above: Performed By: #### C BC, ANEU, TROPHS, GFR, MG, BMP, PRO, PBNP, ADIFF ####[address] [place], [place] [address] PBNPon 08-15-2024 Natriuretic peptide B (Bld) [Mass/Vol] 1651 pg/mL High 0-450 [facility] Comment on above: Result Comment: NT-p roBNP results of less than 300 pg/mL effectively rules out acute congestive heart failure with 99% negative predictive value. Performed By: #### C BC, ANEU, TROPHS, GFR, MG, BMP, PRO, PBNP, ADIFF ####[facility] [place] [place], [place] [address] PROon 08-15-2024 PT Coag (PPP) [Time] 41.7 s High 9.0-14.4 [facility] Comment on above: Order Comment: order ed secondary to warfarin order Performed By: #### C BC, ANEU, TROPHS, GFR, MG, BMP, PRO, PBNP, ADIFF ####[address] [place], [place] [address] PT International Ratio 3.6 Normal [facility] Comment on above: Order Comment: order ed secondary to warfarin order Result Comment: The [employer] (CHEST, 1992, 102:312S-25S) recommended therapeutic range for oral anticoagulant therapy is: LOW RISK: Prophylaxis of venous thrombosis INR: 2.0-3.0 Treatment of pulmonary embolism 2.0-3.0 Prevention of systemic embolism 2.0-3.0 HIGH RISK: Mechanical prosthetic valves 2.5-3.5 Performed By: #### C BC, ANEU, TROPHS, GFR, MG, BMP, PRO, PBNP, ADIFF ####[facility] [place] [place], [place] [address] TROPHSon 08-15-2024 High Sensitivity Troponin I 10 ng/L Normal 0-76 [facility] Comment on above: Result Comment: High Sensitive Troponin I Reference Ranges: Female: 0-51 ng/L Male: 0-76 ng/L Testing performed on LightPath Apps using a homogeneous sandwich chemiluminescent immunoassay based on Qnovo technology. Performed By: #### C BC, ANEU, TROPHS, GFR, MG, BMP, PRO, PBNP, ADIFF ####[facility] [place], [place] [address] .Auto Diffon 08-14-2024 Basophil, Absolute 0.1 10 3/mcL Normal 0.0-0.2 [facility] Comment on above: Performed By: #### A PTT, MG, GFR, PBNP, CBC, TROPHS, PRO, ADIFF, BMP, ANEU, MDW ####[address] [address] Basophils/100 WBC (Bld) 0.7 % Normal 0.0-2.5 [facility] Comment on above: Performed By: #### A PTT, MG, GFR, PBNP, CBC, TROPHS, PRO, ADIFF, BMP, ANEU, MDW ####[address] [place], [place] [address] Eosinophil, Absolute 0.0 10 3/mcL Normal 0.0-0.7 [facility] Comment on above: Performed By: #### A PTT, MG, GFR, PBNP, CBC, TROPHS, PRO, ADIFF, BMP, ANEU, MDW ####[address] [address] Eosinophils/100 WBC (Bld) 0.3 % Normal 0.0-7.0 [facility] Comment on above: Performed By: #### A PTT, MG, GFR, PBNP, CBC, TROPHS, PRO, ADIFF, BMP, ANEU, MDW ####[address] [address] Lymphocyte, Absolute 0.9 10 3/mcL Normal 0.9-4.3 [facility] Comment on above: Performed By: #### A PTT, MG, GFR, PBNP, CBC, TROPHS, PRO, ADIFF, BMP, ANEU, MDW ####[address] [address] Lymphocytes/100 WBC (Bld) 7.2 % Low 20.0-40.0 [facility] Comment on above: Performed By: #### A PTT, MG, GFR, PBNP, CBC, TROPHS, PRO, ADIFF, BMP, ANEU, MDW ####[address] [place], [place] [address] Monocyte, Absolute 0.7 10 3/mcL Normal 0.1-1.4 [facility] Comment on above: Performed By: #### A PTT, MG, GFR, PBNP, CBC, TROPHS, PRO, ADIFF, BMP, ANEU, RISA ####[facility] [place] [place], [place] [address] Monocytes/100 WBC (Bld) 6.0 % Normal 2.0-13.0 [facility] Comment on above: Performed By: #### A PTT, MG, GFR, PBNP, CBC, TROPHS, PRO, ADIFF, BMP, ANEU, RISA ####[facility] [place] [place], [place] [address] Neutrophils/100 WBC (Bld) 85.8 % High 50.0-75.0 [facility] Comment on above: Performed By: #### A PTT, MG, GFR, PBNP, CBC, TROPHS, PRO, ADIFF, BMP, REYNA, RISA ####[facility] [place] [place], [place] [address] .GFRon 08-14-2024 Estimated Glomerular Filtration Rate 90 ml/min/1.73sqm Normal [facility] Comment on above: Result Comment: Stages of [...] TROPHS, PRO, ADIFF, BMP, ANEU, RISA #### [facility] [address] [place], [place] [address] .MDWon 08-14-2024 Monocyte Distribution Width 19.91 Normal 0.00-20.00 [facility] Comment on above: Result Comment: For ED adult patients suspected of sepsis, MDW<=20.0 does not rule out sepsis or risk of sepsis Performed By: #### A PTT, MG, GFR, PBNP, CBC, TROPHS, PRO, ADIFF, BMP, RISA ORELLANA ####[address] [address] .NEUABSon 08-14-2024 Neutrophil, Absolute 10.7 10 3/mcL High 2.3-8.1 [facility] Comment on above: Performed By: #### A PTT, MG, GFR, PBNP, CBC, TROPHS, PRO, ADIFF, BMP, RISA ORELLANA ####[address] [address] APTTon 08-14-2024 aPTT Coag (Bld) [Time] 37.1 s High 25.0-35.0 [facility] Comment on above: Result Comment: For Heparin anticoagulation therapy, the recommended therapeutic range is: 45.4-75.9 seconds. Patients on heparin therapy may have an extreme result. Performed By: #### A PTT, MG, GFR, PBNP, CBC, TROPHS, PRO, ADIFF, BMP, RISA ORELLANA #### [address] [address] BMPon 08-14-2024 BUN/Creatinine Ratio 13 ratio Normal 7-27 [facility] Comment on above: Performed By: #### A PTT, MG, GFR, PBNP, CBC, TROPHS, PRO, ADIFF, BMP, RISA ORELLANA #### [address] [address] Calcium [Mass/Vol] 8.8 mg/dL Normal 8.4-10.2 [facility] Comment on above: Performed By: #### A PTT, MG, GFR, PBNP, CBC, TROPHS, PRO, ADIFF, BMP, RISA ORELLANA #### [address] [address] Chloride [Moles/Vol] 103 mmol/L Normal 98-107 [facility] Comment on above: Performed By: #### A PTT, MG, GFR, PBNP, CBC, TROPHS, PRO, ADIFF, BMP, ANEURISA #### [address] [address] CO2 [Moles/Vol] 25 mmol/L Normal 23-31 [facility] Comment on above: Performed By: #### A PTT, MG, GFR, PBNP, CBC, TROPHS, PRO, ADIFF, BMP, ANEU, RISA #### [address] [address] Creatinine [Mass/Vol] 0.87 mg/dL Normal 0.70-1.30 [facility] Comment on above: Result Comment: Test ing performed on Bookmate Dimension EXL analyzer using a modified kinetic Magnolia technique. Performed By: #### A PTT, MG, GFR, PBNP, CBC, TROPHS, PRO, ADIFF, BMP, REYNA, RISA #### [address] [address] Electrolyte Balance 11.0 mEq/L Normal 4.0-15.0 [facility] Comment on above: Performed By: #### A PTT, MG, GFR, PBNP, CBC, TROPHS, PRO, ADIFF, BMP, ANEU, RISA #### [address] [address] Glucose [Mass/Vol] 147 mg/dL High 83-110 [facility] Comment on above: Performed By: #### A PTT, MG, GFR, PBNP, CBC, TROPHS, PRO, ADIFF, BMP, ANEU, RISA #### [address] [address] Potassium [Moles/Vol] 3.7 mmol/L Normal 3.5-5.1 [facility] Comment on above: Performed By: #### A PTT, MG, GFR, PBNP, CBC, TROPHS, PRO, ADIFF, BMP, ANEU, W #### [address] [address] Sodium [Moles/Vol] 139 mmol/L Normal 136-145 [facility] Comment on above: Performed By: #### A PTT, MG, GFR, PBNP, CBC, TROPHS, PRO, ADIFF, BMP, ANEURISA #### [address] [address] Urea nitrogen [Mass/Vol] 11 mg/dL Normal 7-18 [facility] Comment on above: Performed By: #### A PTT, MG, GFR, PBNP, CBC, TROPHS, PRO, ADIFF, BMP, ANEU, RISA #### [address] [address] CBCon 08-14-2024 Erythrocyte distribution width (RBC) [Ratio] 18.1 % High 11.5-15.5 [facility] Comment on above: Performed By: #### A PTT, MG, GFR, PBNP, CBC, TROPHS, PRO, ADIFF, BMP, RISA ORELLANA ####[address] [address] Hematocrit (Bld) [Volume fraction] 35.3 % Low 40.0-52.0 [facility] Comment on above: Performed By: #### A PTT, MG, GFR, PBNP, CBC, TROPHS, PRO, ADIFF, BMP, RISA ORELLANA ####[address] [address] Hgb 11.2 G/dL Low 13.0-17.5 [facility] Comment on above: Performed By: #### A PTT, MG, GFR, PBNP, CBC, TROPHS, PRO, ADIFF, BMP, ANEU, RISA ####[address] [address] MCH (RBC) [Entitic mass] 23.3 pg Low 27.0-33.0 [facility] Comment on above: Performed By: #### A PTT, MG, GFR, PBNP, CBC, TROPHS, PRO, ADIFF, BMP, ANEU, RISA ####[address] [address] MCHC 31.6 G/dL Low 32.0-36.0 [facility] Comment on above: Performed By: #### A PTT, MG, GFR, PBNP, CBC, TROPHS, PRO, ADIFF, BMP, ANEURISA ####[facility] [place] [place], [place] [address] MCV (RBC) [Entitic vol] 73.7 fL Low 81.0-100.0 [facility] Comment on above: Performed By: #### A PTT, MG, GFR, PBNP, CBC, TROPHS, PRO, ADIFF, BMP, ANEU, RISA ####[address] [place], [place] [address] Platelet 332 10 3/mcL Normal 150-450 [facility] Comment on above: Performed By: #### A PTT, MG, GFR, PBNP, CBC, TROPHS, PRO, ADIFF, BMP, ANEU, RISA ####[address] [place], [place] [address] Platelet mean volume (Bld) [Entitic vol] 7.2 fL Normal 6.4-10.5 [facility] Comment on above: Performed By: #### A PTT, MG, GFR, PBNP, CBC, TROPHS, PRO, ADIFF, BMP, ANEU, RISA ####[id number] [place], [place] [address] RBC 4.78 10 6/mcL Normal 4.50-6.00 [facility] Comment on above: Performed By: #### A PTT, MG, GFR, PBNP, CBC, TROPHS, PRO, ADIFF, BMP, ANEU, RISA ####[id number] [place], [place] [address] WBC 12.5 10 3/mcL High 4.5-10.8 [facility] Comment on above: Performed By: #### A PTT, MG, GFR, PBNP, CBC, TROPHS, PRO, ADIFF, BMP, ANEU, RISA ####[facility] [address] [place], [place] [address] MGon 08-14-2024 Magnesium [Mass/Vol] 1.7 mg/dL Low 1.8-2.4 [facility] Comment on above: Performed By: #### A PTT, MG, GFR, PBNP, CBC, TROPHS, PRO, ADIFF, ZAHIRA, RISA ORELLANA #### [address] [address] PBNPon 08-14-2024 Natriuretic peptide B (Bld) [Mass/Vol] 2398 pg/mL High 0-450 [facility] Comment on above: Result Comment: NT-p roBNP results of less than 300 pg/mL effectively rules out acute congestive heart failure with 99% negative predictive value. Performed By: #### A PTT, MG, GFR, PBNP, CBC, TROPHS, PRO, ADIFF, ZAHIRA, RISA ORELLANA #### [address] [address] PROon 08-14-2024 PT Coag (PPP) [Time] 46.0 s High 9.0-14.4 [facility] Comment on above: Order Comment: order ed secondary to warfarin order Performed By: #### A PTT, MG, GFR, PBNP, CBC, TROPHS, PRO, ADIFF, ZAHIRA, RISA ORELLANA #### [address] [address] PT International Ratio 3.9 Normal [facility] Comment on above: Order Comment: order ed secondary to warfarin order Result Comment: The [employer] (CHEST, 1992, [id number]) recommended therapeutic range for oral anticoagulant therapy is: LOW RISK: Prophylaxis of venous thrombosis INR: 2.0-3.0 Treatment of pulmonary embolism 2.0-3.0 Prevention of systemic embolism 2.0-3.0 HIGH RISK: Mechanical prosthetic valves 2.5-3.5 Performed By: #### A PTT, MG, GFR, PBNP, CBC, TROPHS, PRO, ADIFF, BMP, RISA ORELLANA #### [address] [address] PT Coag (PPP) [Time] 34.1 s High 9.0-14.4 [facility] Comment on above: Performed By: #### A PTT, MG, GFR, PBNP, CBC, TROPHS, PRO, ADIFF, BMP, RISA ORELLANA #### [address] [address] PT International Ratio 2.9 Normal [facility] Comment on above: Result Comment: The [employer] (CHEST, 1991, 102:312S-25S) recommended therapeutic range for oral anticoagulant therapy is: LOW RISK: Prophylaxis of venous thrombosis INR: 2.0-3.0 Treatment of pulmonary embolism 2.0-3.0 Prevention of systemic embolism 2.0-3.0 HIGH RISK: Mechanical prosthetic valves 2.5-3.5 Performed By: #### A PTT, MG, GFR, PBNP, CBC, TROPHS, PRO, ADIFF, BMP, RISA ORELLANA #### [address] [address] TROPHSon 08-14-2024 High Sensitivity Troponin I 11 ng/L Normal 0-76 [facility] Comment on above: Result Comment: High Sensitive Troponin I Reference Ranges: Female: 0-51 ng/L Male: 0-76 ng/L Testing performed on [employer] using a homogeneous sandwich chemiluminescent immunoassay based on Qnovo technology. Performed By: #### A PTT, MG, GFR, PBNP, CBC, TROPHS, PRO, ADIFF, BMP, RISA ORELLANA #### [address] [address] High Sensitivity Troponin I 10 ng/L Normal 0-[address] [place] [address] Comment on above: Result Comment: High Sensitive Troponin I Reference Ranges: Female: 0-51 ng/L Male: 0-76 ng/L Testing performed on [employer] using a homogeneous sandwich chemiluminescent immunoassay based on Qnovo technology. Performed By: #### A PTT, MG, GFR, PBNP, CBC, TROPHS, PRO, ADIFF, BMP, RISA ORELLANA #### [address] [address] High Sensitivity Troponin I 11 ng/L Normal [address] [place] [address] Comment on above: Result Comment: High Sensitive Troponin I Reference Ranges: Female: 0-51 ng/L Male: 0-76 ng/L Testing performed on Dimension EXL using a homogeneous sandwich chemiluminescent immunoassay based on Qnovo technology. Performed By: #### A PTT, MG, GFR, PBNP, CBC, TROPHS, PRO, ADIFF, BMP, ANEU, MDW #### [address] [place], [place] [address] XR CHEST 1 VIEWon 08-14-2024 XR CHEST [...] Date: 08/14/2024 12:17:29 PM Ordering Provider: BASSEM Gasca [facility] Low Dose CT Lung Screeningon 03-10-[address] Lung Screening [facility] Imaging Services [address] [place] [id number] Lung Screening MR#: [id number] Acct: [id number] Name: ANGI JACKSON Rep #: [id number] : 1950 M 74 From: Ammon akins MD PCP: PRAKASH Lanier Status: REG CLI Study: Low Dose CT Lung Screening Date of Exam: 03/10 Exam# [id number] Ordering Dr: Breanne Mejia MD [id number] STUDY: LOW DOSE CT LUNG CANCER SCREENING [...] suspicion of malignancy Modified categories [X]S (e.g. "3S") if there is a clinically significant or potentially significant non-lung cancer finding Electronically Signed: Ammon Gonzales MD at 22:55 EDT Reading Location ID and State: [address] [place] [address] , Service support , CC: PRAKASH Harper; Dr. Breanne Mejia MD Infantry Officer: Signed [facility] CT ABDOMEN/PELVIS W/CONTRAST on 02-04-2024 CT ABDOMEN/PELVIS [...] 4, image 41) previously 1.6 cm, likely hemorrhagic/proteina ceous cyst. Bilateral simple renal cyst also noted. [...] 02/04/2024 7:58:37 AM Ordering Provider: MARCOS Gasca [facility] CT THORAX W/ CONTRASTon 01-24 CT THORAX W/ CONTRAST ORIGINAL EXAMINATION: [...] Date: 02/04/2024 10:28:19 AM Ordering Provider: MARCOS HARPER Normal [facility] .Auto Diffon 02-03-2024 Basophil, Absolute 0.1 10 3/mcL Normal 0.0-0.2 [facility] Comment on above: Performed By: #### A DIFF, GFR, ANEU, LIP, CBC, CMP, CASIMIRO ####[address] [place], [place] [address] Basophils/100 WBC (Bld) 1.3 % Normal 0.0-2.5 A [facility] Comment on above: Performed By: #### A DIFF, GFR, ANEU, LIP, CBC, CMP, CASIMIRO ####[facility] [place] [place], [place] [address] Eosinophil, Absolute 0.2 10 3/mcL Normal 0.0-0.4 [facility] Comment on above: Performed By: #### A DIFF, GFR, ANEU, LIP, CBC, CMP, CASIMIRO ####[address] [place], [place] [address] Eosinophils/100 WBC (Bld) 1.6 % Normal 0.0-7.0 [facility] Comment on above: Performed By: #### A DIFF, GFR, ANEU, LIP, CBC, CMP, CASIMIRO ####[address] [place], [place] [address] Lymphocyte, Absolute 1.8 10 3/mcL Normal 0.8-3.9 [facility] Comment on above: Performed By: #### A DIFF, GFR, ANEU, LIP, CBC, CMP, CASIMIRO ####[address] [address] Lymphocytes/100 WBC (Bld) 18.0 % Normal 10.0-50.0 [facility] Comment on above: Performed By: #### A DIFF, GFR, ANEU, LIP, CBC, CMP, CASIMIRO ####[address] [address] Monocyte, Absolute 0.9 10 3/mcL Normal 0.2-1.0 [facility] Comment on above: Performed By: #### A DIFF, GFR, ANEU, LIP, CBC, CMP, CASIMIRO ####[address] [address] Monocytes/100 WBC (Bld) 8.6 % Normal 1.7-13.0 [facility] Comment on above: Performed By: #### A DIFF, GFR, ANEU, LIP, CBC, CMP, CASIMIRO ####[address] [address] Neutrophils/100 WBC (Bld) 70.5 % Normal 37.0-80.0 [facility] Comment on above: Performed By: #### A DIFF, GFR, ANEU, LIP, CBC, CMP, CASIMIRO ####[address] [place], [place] [address] .GFRon 02-03-2024 GFR 85 ml/min/1.73sqm Normal [facility] Comment on above: Result Comment: GFR Population [...] DIFF, GFR, ANEU, LIP, CBC, CMP, CASIMIRO ####[address] [place], [place] [address] GFR Non- 70 ml/min/1.73sqm Normal [facility] Comment on above: Result Comment: GFR Population [...] DIFF, GFR, ANEU, LIP, CBC, CMP, CASIMIRO ####[facility] [place] [place], [place] [address] .NEUABSon 02-03-2024 Neutrophil, Absolute 7.2 10 3/mcL High 2.9-6.2 [facility] Comment on above: Performed By: #### A DIFF, GFR, ANEU, LIP, CBC, CMP, CASIMIRO ####[address] [place], [place] [address] AMY 02-03-2024 Amylase [Catalytic activity/Vol] 42 U/L Normal 25-115 [facility] Comment on above: Performed By: #### A DIFF, GFR, ANEU, LIP, CBC, CMP, CASIMIRO ####[address] [place] [id number] CBCon 02-03-2024 Erythrocyte distribution width (RBC) [Ratio] 16.8 % High 11.5-14.5 [facility] Comment on above: Performed By: #### A DIFF, GFR, ANEU, LIP, CBC, CMP, CASIMIRO ####[address] [address] Hematocrit (Bld) [Volume fraction] 43.5 % Normal 42.0-52.0 [facility] Comment on above: Performed By: #### A DIFF, GFR, ANEU, LIP, CBC, CMP, CASIMIRO ####[address] [address] Hgb 14.1 G/dL Normal 14.0-18.0 [facility] Comment on above: Performed By: #### A DIFF, GFR, ANEU, LIP, CBC, CMP, CASIMIRO ####[address] [address] MCH (RBC) [Entitic mass] 26.8 pg Low 27.0-31.2 [facility] Comment on above: Performed By: #### A DIFF, GFR, ANEU, LIP, CBC, CMP, CASIMIRO ####[address] [address] MCHC 32.3 G/dL Normal 31.8-35.4 [facility] Comment on above: Performed By: #### A DIFF, GFR, ANEU, LIP, CBC, CMP, CASIMIRO ####[address] [address] MCV (RBC) [Entitic vol] 83.0 fL Normal 80.0-94.0 [facility] Comment on above: Performed By: #### A DIFF, GFR, ANEU, LIP, CBC, CMP, CASIMIRO ####[address] [place], [place] [address] Platelet 337 10 3/mcL Normal 130-400 [facility] Comment on above: Performed By: #### A DIFF, GFR, ANEU, LIP, CBC, CMP, CASIMIRO ####[address] [place], [place] [address] Platelet mean volume (Bld) [Entitic vol] 7.1 fL Low 7.4-10.4 [facility] Comment on above: Performed By: #### A DIFF, GFR, ANEU, LIP, CBC, CMP, CASIMIRO ####[address] [place], [place] [address] RBC 5.25 10 6/mcL Normal 4.04-6.13 [facility] Comment on above: Performed By: #### A DIFF, GFR, ANEU, LIP, CBC, CMP, CASIMIRO ####[address] [address] WBC 10.2 10 3/mcL Normal 4.6-10.8 [facility] Comment on above: Performed By: #### A DIFF, GFR, ANEU, LIP, CBC, CMP, CASIMIRO ####[address] [place], [place] [address] CMPon 02-03-2024 Albumin Level 3.4 G/dL Normal 3.4-4.8 [facility] Comment on above: Performed By: #### A DIFF, GFR, ANEU, LIP, CBC, CMP, CASIMIRO ####[address] [place], [place] [address] Albumin/Globulin [Mass ratio] 0.9 {ratio} Low 1.1-2.5 [facility] Comment on above: Performed By: #### A DIFF, GFR, ANEU, LIP, CBC, CMP, CASIMIRO ####[address] [place], [place] [address] ALP [Catalytic activity/Vol] 121 U/L Normal 40-135 [facility] Comment on above: Performed By: #### A DIFF, GFR, ANEU, LIP, CBC, CMP, CASIMIRO ####[facility] [place] [place], [place] [address] ALT [Catalytic activity/Vol] 27 U/L Normal 16-63 [facility] Comment on above: Performed By: #### A DIFF, GFR, ANEU, LIP, CBC, CMP, CASIMIRO ####[facility] [place] [place], [place] [address] AST [Catalytic activity/Vol] 24 U/L Normal 10-40 [facility] Comment on above: Performed By: #### A DIFF, GFR, ANEU, LIP, CBC, CMP, CASIMIRO ####[address] [place], [place] [address] Bili Total 0.7 mg/dL Normal 0.2-1.0 [facility] Comment on above: Result Comment: Use of this assay is not recommended for patients undergoing treatment with eltrombopag due to the potential for falsely elevated results. Performed By: #### A DIFF, GFR, ANEU, LIP, CBC, CMP, CASIMIRO ####[address] [address] BUN/Creatinine Ratio 10 ratio Normal 7-27 [facility] Comment on above: Performed By: #### A DIFF, GFR, ANEU, LIP, CBC, CMP, CASIMIRO ####[address] [place], [place] [address] Calcium [Mass/Vol] 9.3 mg/dL Normal 8.4-10.2 [facility] Comment on above: Performed By: #### A DIFF, GFR, ANEU, LIP, CBC, CMP, CASIMIRO ####[address] [place], [place] [address] Chloride [Moles/Vol] 98 mmol/L Normal 98-107 [facility] Comment on above: Performed By: #### A DIFF, GFR, ANEU, LIP, CBC, CMP, CASIMIRO ####[address] [place], [place] [address] CO2 [Moles/Vol] 32 mmol/L High 23-31 [facility] Comment on above: Performed By: #### A DIFF, GFR, ANEU, LIP, CBC, CMP, CASIMIRO ####[address] [address] Creatinine [Mass/Vol] 1.04 mg/dL Normal 0.70-1.30 [facility] Comment on above: Result Comment: Test ing performed on Siemens Dimension EXL analyzer using a modified kinetic [place] technique. Performed By: #### A DIFF, GFR, ANEU, LIP, CBC, CMP, CASIMIRO ####[address] [address] Electrolyte Balance 6.0 mEq/L Normal 4.0-15.0 [facility] Comment on above: Performed By: #### A DIFF, GFR, ANEU, LIP, CBC, CMP, CASIMIRO ####[address] [address] Globulin 3.6 G/dL Normal [facility] Comment on above: Performed By: #### A DIFF, GFR, ANEU, LIP, CBC, CMP, CASIMIRO ####[address] [address] Glucose [Mass/Vol] 109 mg/dL Normal 83-110 [facility] Comment on above: Performed By: #### A DIFF, GFR, ANEU, LIP, CBC, CMP, CASIMIRO ####[address] [address] Potassium [Moles/Vol] 4.0 mmol/L Normal 3.5-5.1 [facility] Comment on above: Performed By: #### A DIFF, GFR, ANEU, LIP, CBC, CMP, CASIMIRO ####[address] [address] Sodium [Moles/Vol] 136 mmol/L Normal 136-145 [facility] Comment on above: Performed By: #### A DIFF, GFR, ANEU, LIP, CBC, CMP, CASIMIRO ####[address] [address] Total Protein 7.0 G/dL Normal 6.4-8.2 [facility] Comment on above: Performed By: #### A DIFF, GFR, ANEU, LIP, CBC, CMP, CASIMIRO ####[facility] [place] [place], [place] [address] Urea nitrogen [Mass/Vol] 10 mg/dL Normal 7-18 [facility] Comment on above: Performed By: #### A DIFF, GFR, ANEU, LIP, CBC, CMP, CASIMIRO ####[facility] [place] [place], [place] [address] LABORATORYOrdered By: SYSTEM SYSTEM on 02-03-2024 Albumin [...] mmol/L High 23 - 31 mmol/L AO ADM SS Creatinine [Mass/Vol] 1.04 mg/dL Normal 0.70 - 1.30 mg/dL AO ADM SS Comment on above: Interpretive Data: T esting performed on Siemens Dimension EXL analyzer using [...] 02-03-2024 Lipase Level 22 U/L Normal 16-77 [facility] Comment on above: Performed By: #### A DIFF, GFR, ANEU, LIP, CBC, CMP, ACSIMIRO ####[address] [address] .Auto Diffon 01-20-2024 Basophil, Absolute 0.1 10 3/mcL Normal 0.0-0.2 [facility] ([place]) Comment on above: Performed By: #### A DIFF, CMP, ANEU, GFR, CBC #### [address] [address] Basophils/100 WBC (Bld) 1.0 % Normal 0.0-2.5 A [facility] ([place]) Comment on above: Performed By: #### A DIFF, CMP, ANEU, GFR, CBC #### [address] [address] Eosinophil, Absolute 0.2 10 3/mcL Normal 0.0-0.4 [facility] ([place]) Comment on above: Performed By: #### A DIFF, CMP, ANEU, GFR, CBC #### [address] [address] Eosinophils/100 WBC (Bld) 1.4 % Normal 0.0-7.0 [facility] ([place]) Comment on above: Performed By: #### A DIFF, CMP, ANEU, GFR, CBC #### [address] [address] Lymphocyte, Absolute 1.6 10 3/mcL Normal 0.8-3.9 [facility] ([place]) Comment on above: Performed By: #### A DIFF, CMP, ANEU, GFR, CBC #### [address] [address] Lymphocytes/100 WBC (Bld) 14.0 % Normal 10.0-50.0 [facility] ([place]) Comment on above: Performed By: #### A DIFF, CMP, ANEU, GFR, CBC #### [address] [address] Monocyte, Absolute 1.0 10 3/mcL Normal 0.2-1.0 [facility] ([place]) Comment on above: Performed By: #### A DIFF, CMP, ANEU, GFR, CBC #### [address] [address] Monocytes/100 WBC (Bld) 8.5 % Normal 1.7-13.0 A [facility] ([place]) Comment on above: Performed By: #### A DIFF, CMP, ANEU, GFR, CBC #### [address] [address] Neutrophils/100 WBC (Bld) 75.1 % Normal 37.0-80.0 [facility] ([place]) Comment on above: Performed By: #### A DIFF, CMP, ANEU, GFR, CBC #### [address] [address] .GFRon 01-20-2024 GFR 81 ml/min/1.73sqm Normal [facility] ([place]) Comment on above: Result Comment: GFR Population [...] A DIFF, CMP, ANEU, GFR, CBC #### [address] [address] GFR Non- 67 ml/min/1.73sqm Normal [facility] ([place]) Comment on above: Result Comment: GFR Population [...] A DIFF, CMP, ANEU, GFR, CBC #### [address] [address] .NEUABSon 01-20-2024 Neutrophil, Absolute 8.7 10 3/mcL High 2.9-6.2 [facility] ([place]) Comment on above: Performed By: #### A DIFF, CMP, ANEU, GFR, CBC #### [address] [address] CBCon 01-20-2024 Erythrocyte distribution width (RBC) [Ratio] 16.9 % High 11.5-14.5 [facility] ([place]) Comment on above: Performed By: #### A DIFF, CMP, ANEU, GFR, CBC #### [address] [address] Hematocrit (Bld) [Volume fraction] 43.4 % Normal 42.0-52.0 [facility] ([place]) Comment on above: Performed By: #### A DIFF, CMP, ANEU, GFR, CBC #### [address] [address] Hgb 13.9 G/dL Low 14.0-18.0 [facility] ([place]) Comment on above: Performed By: #### A DIFF, CMP, ANEU, GFR, CBC #### [address] [address] MCH (RBC) [Entitic mass] 26.9 pg Low 27.0-31.2 [facility] ([place]) Comment on above: Performed By: #### A DIFF, CMP, ANEU, GFR, CBC #### [address] [address] MCHC 31.9 G/dL Normal 31.8-35.4 [facility] ([place]) Comment on above: Performed By: #### A DIFF, CMP, ANEU, GFR, CBC #### [address] [address] MCV (RBC) [Entitic vol] 84.4 fL Normal 80.0-94.0 A [facility] ([place]) Comment on above: Performed By: #### A DIFF, CMP, ANEU, GFR, CBC #### [address] [address] Platelet 376 10 3/mcL Normal 130-400 [facility] ([place]) Comment on above: Performed By: #### A DIFF, CMP, ANEU, GFR, CBC #### [address] [address] Platelet mean volume (Bld) [Entitic vol] 7.9 fL Normal 7.4-10.4 [facility] ([place]) Comment on above: Performed By: #### A DIFF, CMP, ANEU, GFR, CBC #### [address] [address] RBC 5.15 10 6/mcL Normal 4.04-6.13 [facility] ([place]) Comment on above: Performed By: #### A DIFF, CMP, ANEU, GFR, CBC #### [address] [address] WBC 11.6 10 3/mcL High 4.6-10.8 [facility] ([place]) Comment on above: Performed By: #### A DIFF, CMP, ANEU, GFR, CBC #### [address] [address] CMPon 01-20-2024 Albumin Level 3.4 G/dL Normal 3.4-4.8 [facility] ([place]) Comment on above: Performed By: #### A DIFF, CMP, ANEU, GFR, CBC #### [address] [address] Albumin/Globulin [Mass ratio] 0.9 {ratio} Low 1.1-2.5 [facility] ([place]) Comment on above: Performed By: #### A DIFF, CMP, ANEU, GFR, CBC #### [address] [address] ALP [Catalytic activity/Vol] 121 U/L Normal 40-135 [facility] ([place]) Comment on above: Performed By: #### A DIFF, CMP, ANEU, GFR, CBC #### [address] [address] ALT [Catalytic activity/Vol] 31 U/L Normal 16-63 [facility] ([place]) Comment on above: Performed By: #### A DIFF, CMP, ANEU, GFR, CBC #### [address] [address] AST [Catalytic activity/Vol] 28 U/L Normal 10-40 [facility] ([place]) Comment on above: Performed By: #### A DIFF, CMP, ANEU, GFR, CBC #### [address] [address] Bili Total 0.6 mg/dL Normal 0.2-1.0 [facility] ([place]) Comment on above: Result Comment: Use of this assay is not recommended for patients undergoing treatment with eltrombopag due to the potential for falsely elevated results. Performed By: #### A DIFF, CMP, ANEU, GFR, CBC #### [address] [address] BUN/Creatinine Ratio 8 ratio Normal -27 [facility] ([place]) Comment on above: Performed By: #### A DIFF, CMP, ANEU, GFR, CBC #### [address] [address] Calcium [Mass/Vol] 9.2 mg/dL Normal 8.4-10.2 [facility] ([place]) Comment on above: Performed By: #### A DIFF, CMP, ANEU, GFR, CBC #### [address] [address] Chloride [Moles/Vol] 104 mmol/L Normal 98-107 [facility] ([place]) Comment on above: Performed By: #### A DIFF, CMP, ANEU, GFR, CBC #### [address] [address] CO2 [Moles/Vol] 25 mmol/L Normal 23-31 [facility] ([place]) Comment on above: Performed By: #### A DIFF, CMP, ANEU, GFR, CBC #### [address] [address] Creatinine [Mass/Vol] 1.08 mg/dL Normal 0.70-1.30 [facility] ([place]) Comment on above: Performed By: #### A DIFF, CMP, ANEU, GFR, CBC #### [address] [address] Electrolyte Balance 10.0 mEq/L Normal 4.0-15.0 [facility] ([place]) Comment on above: Performed By: #### A DIFF, CMP, ANEU, GFR, CBC #### [address] [address] Globulin 3.9 G/dL Normal [facility] ([place]) Comment on above: Performed By: #### A DIFF, CMP, ANEU, GFR, CBC #### [address] [address] Glucose [Mass/Vol] 145 mg/dL High 83-110 [facility] ([place]) Comment on above: Performed By: #### A DIFF, CMP, ANEU, GFR, CBC #### [address] [address] Potassium [Moles/Vol] 3.7 mmol/L Normal 3.5-5.1 [facility] ([place]) Comment on above: Performed By: #### A DIFF, CMP, ANEU, GFR, CBC #### [address] [place], [place] [address] Sodium [Moles/Vol] 139 mmol/L Normal 136-145 [facility] ([place]) Comment on above: Performed By: #### A DIFF, CMP, ANEU, GFR, CBC #### [address] [address] Total Protein 7.3 G/dL Normal 6.4-8.2 [facility] ([place]) Comment on above: Performed By: #### A DIFF, CMP, ANEU, GFR, CBC #### [address] [address] Urea nitrogen [Mass/Vol] 9 mg/dL Normal 7-18 [facility] ([place]) Comment on above: Performed By: #### A DIFF, CMP, ANEU, GFR, CBC #### [address] [address] LABORATORYOrdered By: SYSTEM SYSTEM on 01-20-2024 Albumin [...] mmol/L Normal 23 - 31 mmol/L AO ADM SS Creatinine [Mass/Vol] 1.08 mg/dL Normal 0.70 [...] it is assumed that there are 5 [id number], lumbar-type vertebrae, and the most caudal fully [...] 12/27/2023 8:00:24 AM Ordering Provider: JENNIFER CABELLO [facility] ([place]) CT THORAX SCREENING W/O CONT Pool 10-08-2023 [...] mediastinal precarinal lymph node which may be hyperplastic/reactiv e although 3 month follow-up CT recommended. Enlarged [...] 9:33:34 AM Ordering Provider: MARCOS HARPER Normal [facility]) Ameena 02-19-2023 U Creatinine 110.7 mg/dL Normal 39.0-259.0 [facility]) Comment on above: Performed By: #### M ALBR #### [address] [address] U Microalb [address] mcg/dL Normal [facility]) Comment on above: Performed By: #### M ALBR #### [address] [address] U Ratio Alb/Cre 125 mcg/mg High 0-30 [facility]) Comment on above: Performed By: #### M ALBR #### [address] [address] LABORATORYOrdered By: Nayla Frye on 08-12-2022 Creatinine [...] stimulating hormone (TSH) 1.59 mcIU/mL Normal 0.27-4.20 [facility] Comment on above: Performed By: #### T ####[address] [address] Vital Signs Date Time Vital Sign Value Performing Clinician Faci litdesire 12-16-2024 13:44-0400 Body height 182.88 cm Marcos Baltes DIE CASTING SUPERVISOR-C Work Phone: [facility] 12-16-2024 13:44-0400 Body mass index (BMI) [Ratio] 28.6 kg/m2 Marcos Baltes DIE CASTING SUPERVISOR-C Work Phone: [facility] 12-16-2024 13:44-0400 Body weight 95.7 kg Marcos Baltes DIE CASTING SUPERVISOR-C Work Phone: [facility] 12-16-2024 13:44-0400 Diastolic blood pressure 62 mm[Hg] Marcos Baltes DIE CASTING SUPERVISOR-C Work Phone: [facility] 12-16-2024 13:44-0400 Heart rate 46 /min Marcos Baltes DIE CASTING SUPERVISOR-C Work Phone: [facility] 12-16-2024 13:44-0400 Respiratory rate 16 /min Marcos Baltes DIE CASTING SUPERVISOR-C Work Phone: [facility] 12-16-2024 13:44-0400 SaO2% (BldA) [Mass fraction] 98 % Marcos Baltes DIE CASTING SUPERVISOR-C Work Phone: [facility] 12-16-2024 13:44-0400 Systolic blood pressure 118 mm[Hg] Marcos Baltes DIE CASTING SUPERVISOR-C Work Phone: [facility] 12-01-2024 12:00-0400 Body temperature 96.8 [degF] Marcos Baltes DIE CASTING SUPERVISOR-C Work Phone: [facility] 12-01-2024 12:00-0400 Diastolic blood pressure 70 mm[Hg] Marcos Baltes DIE CASTING SUPERVISOR-C Work Phone: [facility] 12-01-2024 12:00-0400 Heart rate 69 /min Marcos Baltes DIE CASTING SUPERVISOR-C Work Phone: [facility] 12-01-2024 12:00-0400 Respiratory rate 17 /min Marcos Baltes DIE CASTING SUPERVISOR-C Work Phone: [facility] 12-01-2024 12:00-0400 SaO2% (BldA) [Mass fraction] 97 % Marcos Baltes DIE CASTING SUPERVISOR-C Work Phone: [facility] 12-01-2024 12:00-0400 Systolic blood pressure 129 mm[Hg] Marcos Baltes DIE CASTING SUPERVISOR-C Work Phone: [facility] 12-01-2024 05:38-0400 Body mass index (BMI) [Ratio] 28 kg/m2 Marcos Baltes DIE CASTING SUPERVISOR-C Work Phone: [facility] 12-01-2024 05:38-0400 Body weight 93.7 kg Marcos Baltes DIE CASTING SUPERVISOR-C Work Phone: [facility] 12-01-2024 03:19-0400 Inhaled oxygen flow rate 2 L/min Marcos Baltes DIE CASTING SUPERVISOR-C Work Phone: [facility] 11-30-2024 08:01-0400 Diastolic blood pressure 77 mm[Hg] Marcos Baltes DIE CASTING SUPERVISOR-C Work Phone: [facility] 11-30-2024 08:01-0400 Heart rate 69 /min Marcos Baltes DIE CASTING SUPERVISOR-C Work Phone: [facility] 11-30-2024 08:01-0400 Respiratory rate 17 /min Marcos Baltes DIE CASTING SUPERVISOR-C Work Phone: [facility] 11-30-2024 08:01-0400 SaO2% (BldA) [Mass fraction] 100 % Marcos Baltes DIE CASTING SUPERVISOR-C Work Phone: [facility] 11-30-2024 08:01-0400 Systolic blood pressure 107 mm[Hg] Marcos Baltes DIE CASTING SUPERVISOR-C Work Phone: [facility] 11-30-2024 04:00-0400 Body temperature 97.2 [degF] Marcos Baltes DIE CASTING SUPERVISOR-C Work Phone: [facility] 11-30-2024 04:00-0400 Inhaled oxygen flow rate 2 L/min Marcos Baltes DIE CASTING SUPERVISOR-C Work Phone: [facility] 11-30-2024 01:58-0400 Body mass index (BMI) [Ratio] 28.7 kg/m2 Marcos Baltes DIE CASTING SUPERVISOR-C Work Phone: [facility] 11-30-2024 01:58-0400 Body weight 96.1 kg Marcos Baltes DIE CASTING SUPERVISOR-C Work Phone: [facility] 11-29-2024 12:21-0400 Body height 182.88 cm Marcos Baltes DIE CASTING SUPERVISOR-C Work Phone: [facility] 11-05-2024 11:21-0400 Body height 182.88 cm Marcos Baltes DIE CASTING SUPERVISOR-C Work Phone: [facility] 11-05-2024 11:21-0400 Body mass index (BMI) [Ratio] 28.8 kg/m2 Marcos Baltes DIE CASTING SUPERVISOR-C Work Phone: [facility] 11-05-2024 11:21-0400 Body weight 96.61 kg Marcos Baltes DIE CASTING SUPERVISOR-C Work Phone: [facility] 11-05-2024 11:21-0400 Diastolic blood pressure 64 mm[Hg] Marcos Baltes DIE CASTING SUPERVISOR-C Work Phone: [facility] 11-05-2024 11:21-0400 Heart rate 53 /min Marcos Baltes DIE CASTING SUPERVISOR-C Work Phone: [facility] 11-05-2024 11:21-0400 Respiratory rate 18 /min Marcos Baltes DIE CASTING SUPERVISOR-C Work Phone: [facility] 11-05-2024 11:21-0400 Systolic blood pressure 114 mm[Hg] Marcos Baltes DIE CASTING SUPERVISOR-C Work Phone: [facility] 09-17-2024 11:12-0400 Body height 182.88 cm Marcos Baltes DIE CASTING SUPERVISOR-C Work Phone: [facility] 09-17-2024 11:12-0400 Body mass index (BMI) [Ratio] 30.1 kg/m2 Marcos Baltes DIE CASTING SUPERVISOR-C Work Phone: [facility] 09-17-2024 11:12-0400 Body weight 100.69 kg Marcos Baltes DIE CASTING SUPERVISOR-C Work Phone: [facility] 09-17-2024 11:12-0400 Diastolic blood pressure 65 mm[Hg] Marcos Baltes DIE CASTING SUPERVISOR-C Work Phone: [facility] 09-17-2024 11:12-0400 Heart rate 64 /min Marcos Baltes DIE CASTING SUPERVISOR-C Work Phone: [facility] 09-17-2024 11:12-0400 Respiratory rate 18 /min Marcos Baltes DIE CASTING SUPERVISOR-C Work Phone: [facility] 09-17-2024 11:12-0400 Systolic blood pressure 118 mm[Hg] Marcos Baltes DIE CASTING SUPERVISOR-C Work Phone: [facility] 08-20-2024 07:58-0400 Body height 182.88 cm Marcos Baltes DIE CASTING SUPERVISOR-C Work Phone: [facility] 08-20-2024 07:58-0400 Body mass index (BMI) [Ratio] 30.1 kg/m2 Marcos Baltes DIE CASTING SUPERVISOR-C Work Phone: [facility] 08-20-2024 07:58-0400 Body weight 100.69 kg Marcos Baltes DIE CASTING SUPERVISOR-C Work Phone: [facility] 08-20-2024 07:58-0400 Diastolic blood pressure 70 mm[Hg] Marcos Baltes DIE CASTING SUPERVISOR-C Work Phone: [facility] 08-20-2024 07:58-0400 Heart rate 58 /min Marcos Baltes DIE CASTING SUPERVISOR-C Work Phone: [facility] 08-20-2024 07:58-0400 Respiratory rate 20 /min Marcos Baltes DIE CASTING SUPERVISOR-C Work Phone: [facility] 08-20-2024 07:58-0400 Systolic blood pressure 121 mm[Hg] Marcos Baltes DIE CASTING SUPERVISOR-C Work Phone: [facility] 07-17-2023 15:47-0500 Body height 182.88 cm DIE CASTING SUPERVISOR-C Ilene nAderson DIE CASTING SUPERVISOR Work Phone: [facility] 07-17-2023 15:47-0500 Body mass index (BMI) [Ratio] 30.1 kg/m2 DIE CASTING SUPERVISOR-C Ilene Anderson DIE CASTING SUPERVISOR Work Phone: [facility] 07-17-2023 15:47-0500 Body weight 100.69 kg DIE CASTING SUPERVISOR-C Ilene Anderson DIE CASTING SUPERVISOR Work Phone: [facility] 07-17-2023 15:47-0500 Diastolic blood pressure 84 mm[Hg] DIE CASTING SUPERVISOR-C Ilene Ayersers DIE CASTING SUPERVISOR Work Phone: [facility] 07-17-2023 15:47-0500 Heart rate 69 /min DIE CASTING SUPERVISOR-C Ilene Ayersers DIE CASTING SUPERVISOR Work Phone: [facility] 07-17-2023 15:47-0500 Respiratory rate 16 /min DIE CASTING SUPERVISOR-C Ilene Ayersers DIE CASTING SUPERVISOR Work Phone: [facility] 07-17-2023 15:47-0500 Systolic blood pressure 122 mm[Hg] DIE CASTING SUPERVISOR-C Ilene Anderson DIE CASTING SUPERVISOR Work Phone: [facility] 07-15-2022 10:11-0500 Diastolic Blood Pressure Non-Invasive [address] PATO WEST MD [facility] 07-15-2022 10:11-0500 Heart rate 62 /min DR PATO WEST MD [facility] 07-15-2022 10:11-0500 Respiratory rate 17 /min DR PATO WEST MD [facility] 07-15-2022 10:11-0500 Systolic Blood Pressure Non-Invasive [address] PATO WEST MD [facility] 07-15-2022 09:59-0500 Diastolic Blood Pressure Non-Invasive [address] PATO WEST MD [facility] 07-15-2022 09:59-0500 Heart rate 57 /min DR PATO WEST MD [facility] 07-15-2022 09:59-0500 Respiratory rate 24 /min DR PATO WEST MD [facility] 07-15-2022 09:59-0500 Systolic Blood Pressure Non-Invasive [address] PATO WEST MD [facility] 07-15-2022 09:54-0500 Diastolic Blood Pressure Non-Invasive [address] PATO WEST MD [facility] 07-15-2022 09:54-0500 Heart rate 67 /min DR PATO WEST MD [facility] 07-15-2022 09:54-0500 Respiratory rate 24 /min DR PATO WEST MD [facility] 07-15-2022 09:54-0500 Systolic Blood Pressure Non-Invasive [address] PATO WEST MD [facility] 07-15-2022 09:45-0500 Respiratory Rate - Anes 22 br/min DR PATO WEST MD [facility] 07-15-2022 09:40-0500 Respiratory Rate - Anes 14 br/min DR PATO WEST MD [facility] 07-15-2022 08:34-0500 Body height 180.[address] PATO WEST MD [facility] 07-15-2022 08:34-0500 Body temperature 97.7 [degF] DR PATO WEST MD [facility] 07-15-2022 08:34-0500 Body weight [address] PATO WEST MD [facility] 07-15-2022 08:34-0500 Body weight 24.61 kg/m2 DR PATO WEST MD [facility] 07-15-2022 08:34-0500 Heart rate 61 /min DR PATO WEST MD [facility] Encounters Encounter Date Encounter Type Care Provider Facility Start: 12-30-2024 ambulatory Jovany Chi Gonsalo Facility:[facility] Start: 12-22-2024 ambulatory Jovany Chi Gonsalo Facility:[facility] Start: 12-16-2024 End: 12-16-2024 [facility] Start: 12-16-2024 End: 12-16-[address] Fco Aguilera MD -[facility] Work Phone: Start: 12-08-2024 End: 12-08-2024 ambulatory Marcos Harper DIE CASTING SUPERVISOR-C Work Phone: [facility] Start: 12-08-2024 End: 12-08-[address] Jovany Brush MD [facility] Work Phone: Start: 12-08-2024 End: 12-08-2024 ambulatory Jovany Chi Gonsalo Facility:[facility] Start: 12-03-2024 Non-patient / Non-visit Roma Gonzalez [facility] Work Phone: Start: 12-03-2024 ambulatory Jovany Chi Gonsalo Facility:[facility] Start: 12-01-2024 Non-patient / Non-visit Dr. Elin [facility]ULLARD [facility] Start: 11-30-2024 Non-patient / Non-visit Dr. Hira downing DO [facility] Work Phone: Start: 11-30-2024 ambulatory Marcos Harper DIE CASTING SUPERVISOR -C [facility] Start: 11-30-2024 Non-patient / Non-visit Dr. Elin BULLARD [facility] Start: 11-29-2024 ambulatory Jovany Chi Gonsalo Facility:[facility] Start: 11-29-2024 Non-patient / Non-visit Dr. Elin BULLARD -[facility] Start: 11-29-2024 Non-patient / Non-visit Dr. Margarita selby MD -[facility] Work Phone: Start: 11-29-2024 ambulatory Logan Willy Facility:[facility] Start: 11-29-2024 End: 12-01-2024 Evaluation and management of inpatient Dr. Fco Aguilera MD -Intensive Care Unit Work Phone: Start: 11-29-2024 ambulatory Fco Willy Facility:[facility] Start: 11-29-2024 Non-patient / Non-visit Dr. Bryan woods MD -[facility] Start: 11-29-2024 Admission to [facility] Dr. Fco Aguilera MD -Intensive Care Unit Work Phone: Start: 11-05-2024 End: 11-05-2024 Patient encounter procedure Maikel WADE -[facility] Work Phone: Start: 11-05-2024 End: 11-05-2024 ambulatory Marcos Baltes DIE CASTING SUPERVISOR-C Work Phone: [facility] Work Phone: Start: 09-30-2024 End: 09-30-2024 ambulatory Marcos Baltes DIE CASTING SUPERVISOR-C Work Phone: [facility] Work Phone: Start: 09-30-2024 End: 09-30-2024 Patient encounter procedure Maikel Liang PA -Laboratory Work Phone: Start: 09-30-2024 End: 09-30-2024 ambulatory Jovany Chi Gonsalo Facility:[facility] Start: 09-17-2024 End: 09-17-2024 Patient encounter procedure Maikel WADE -[facility] Work Phone: Start: 09-17-2024 End: 09-17-2024 ambulatory Jovany Chi Gonsalo Facility[facility] Start: 09-01-2024 End: 09-01-2024 ambulatory Marcos Baltes DIE CASTING SUPERVISOR-C Work Phone: [facility] Work Phone: Start: 09-01-2024 End: 09-01-[address] Jovany Brush MD -Laboratory Work Phone: Start: 09-01-2024 End: 09-01-2024 ambulatory [facility] Facility:[facility] Start: 08-30-2024 End: 08-30-2024 ambulatory Marcos Baltes DIE CASTING SUPERVISOR-C Work Phone: [facility] Work Phone: Start: 08-30-2024 End: 08-30-2024 Patient encounter procedure Maikel WADE -Laboratory Work Phone: Start: 08-30-2024 End: 08-30-2024 ambulatory [facility] Facility:[facility] Start: 08-27-2024 Non-patient / Non-visit [facility] Quintana [facility] -[facility] Work Phone: Start: 08-27-2024 End: 08-27-2024 ambulatory Marcos Baltes DIE CASTING SUPERVISOR-C Work Phone: [facility] Work Phone: Start: 08-27-2024 End: 08-27-2024 Patient encounter procedure Maikel WADE -Pulmonary Services/Neurology Work Phone: Start: 08-27-2024 End: 08-27-2024 ambulatory [facility] Facility:[facility] Start: 08-20-2024 End: 08-20-2024 ambulatory Marcos Baltes DIE CASTING SUPERVISOR-C Work Phone: [facility] Work Phone: Start: 08-20-2024 End: 08-20-2024 Patient encounter procedure Maikel WADE -[facility] Work Phone: Start: 08-20-2024 End: 08-20-2024 Patient encounter procedure Maikel WADE -[facility] Work Phone: Start: 08-20-2024 End: 08-20-2024 ambulatory Marcos Balmatthew DIE CASTING SUPERVISOR Facility:[facility] Start: 08-20-2024 End: 08-20-2024 ambulatory Marcos Balmatthew DIE CASTING SUPERVISOR Facility:[facility] Start: 08-14-2024 End: 08-16-2024 Evaluation and management of inpatient JULIET BEAR QUALITY ANALYST/TECHNICAL WRITER-CAREER DISCOVERY TEACHER Facility:[facility] Start: 07-16-2024 End: 09-10-2024 ambulatory MARCOS BALMATTHEW QUALITY ANALYST/TECHNICAL WRITER-CAREER DISCOVERY TEACHER Facility:[facility] Start: 03-10-2024 End: 03-10-2024 ambulatory Breanne Mejia Facility:[facility] Start: 02-03-2024 End: 02-03-2024 ambulatory SONAM FAM QUALITY ANALYST/TECHNICAL WRITER-DIRECTOR FAMILY Facility:[facility] Start: 02-03-2024 End: 02-03-2024 Patient encounter procedure MARCOS HARPER QUALITY ANALYST/TECHNICAL WRITER-CAREER DISCOVERY TEACHER [facility] Start: 01-31-2024 ambulatory MARCOS BALTES QUALITY ANALYST/TECHNICAL WRITER-CAREER DISCOVERY TEACHER Fa cility:[facility] Start: 01-27-2024 ambulatory MARCOS BALMATTHEW QUALITY ANALYST/TECHNICAL WRITER-CAREER DISCOVERY TEACHER Fa cility:[facility] Start: 01-22-2024 ambulatory MARCOS BALTES QUALITY ANALYST/TECHNICAL WRITER-CAREER DISCOVERY TEACHER Fa cility:[facility] Start: 01-20-2024 End: 01-24-2024 ambulatory MARCOS BALTES QUALITY ANALYST/TECHNICAL WRITER-CAREER DISCOVERY TEACHER Facility:[facility] Start: 01-20-2024 End: 01-24-2024 Encounter for other preprocedural examination MARCOS LEROY QUALITY ANALYST/TECHNICAL WRITER-CAREER DISCOVERY TEACHER Facility:[facility] Start: 01-20-2024 End: 01-24-2024 Outreach Lab MARCOS BALTES QUALITY ANALYST/TECHNICAL WRITER-CAREER DISCOVERY TEACHER [facility] Start: 01-16-2024 ambulatory MARCOS BALTES QUALITY ANALYST/TECHNICAL WRITER-CAREER DISCOVERY TEACHER Fa cility:[facility] Start: 12-25-2023 End: 12-25-2023 ambulatory JENNIFER CABELLO DO Facility:[facility] Start: 12-25-2023 End: 12-25-2023 Patient encounter procedure JENNIFER CABELLO DO [facility] Start: 10-30-2023 End: 10-30-2023 ambulatory MARCOS HARPER QUALITY ANALYST/TECHNICAL WRITER-CAREER DISCOVERY TEACHER Facility:[facility] Start: 10-30-2023 End: 10-30-2023 Patient encounter procedure MARCOS HARPER QUALITY ANALYST/TECHNICAL WRITER-CAREER DISCOVERY TEACHER [facility] Start: 10-03-2023 End: 10-03-2023 ambulatory MARCOS HARPER QUALITY ANALYST/TECHNICAL WRITER-CAREER DISCOVERY TEACHER Facility:[facility] Start: 10-03-2023 End: 10-03-2023 Patient encounter procedure MARCOS HARPER QUALITY ANALYST/TECHNICAL WRITER-CAREER DISCOVERY TEACHER [facility] Start: 09-24-2023 End: 10-29-2023 ambulatory MARCOS HARPER QUALITY ANALYST/TECHNICAL WRITER-CAREER DISCOVERY TEACHER Facility:[facility] Start: 09-24-2023 End: 10-29-2023 Physical therapy management MARCOS HARPER QUALITY ANALYST/TECHNICAL WRITER-CAREER DISCOVERY TEACHER [facility] Start: 08-22-2023 Non-patient / Non-visit DIE CASTING SUPERVISOR-C Sue Anderson DIE CASTING SUPERVISOR Work Phone: [facility] Start: 08-22-2023 End: 08-22-2023 ambulatory DIE CASTING SUPERVISOR-C Ilene Anderson NP Work Phone: [facility] Work Phone: Start: 08-22-2023 End: 08-22-2023 Patient encounter procedure DIE CASTING SUPERVISOR-C Ilene Anderson NP Work Phone: [facility]-Cardiovascul ar Services Work Phone: Start: 07-17-2023 End: 07-17-2023 Patient encounter procedure DIE CASTING SUPERVISOR-C Ilene Anderson NP Work Phone: [facility] Work Phone: Start: 02-18-2023 End: 2023 ambulatory MARCOS HARPER QUALITY ANALYST/TECHNICAL WRITER-CAREER DISCOVERY TEACHER Facility:[facility] Start: 08-29-2022 End: 08-29-[address] PATO WEST MD [facility] Start: 08-12-2022 End: 08-12-2022 Preprocedural examination done KAREN STAPLES MD [facility] Start: 08-12-2022 End: 08-12-2022 Patient encounter procedure MARCOS HARPER QUALITY ANALYST/TECHNICAL WRITER-CAREER DISCOVERY TEACHER [facility] Start: 07-15-2022 End: 07-15-[address] PATO WEST MD [facility] Start: 06-21-2022 End: 06-21-[address] PATO WEST MD [facility] Start: 01-31-2022 End: 01-31-2022 ambulatory [facility] Work Phone: Start: 01-31-2022 End: 01-31-2022 Patient encounter procedure [facility] Start: 08-28-2021 End: 08-28-2021 Patient encounter procedure ILENE ANDERSON QUALITY ANALYST/TECHNICAL WRITER-CAREER DISCOVERY TEACHER [facility] Start: 07-24-2021 End: 07-24-2021 Patient encounter procedure ILENE ANDERSON QUALITY ANALYST/TECHNICAL WRITER-CAREER DISCOVERY TEACHER [facility] Start: 04-26-2021 End: 04-26-2021 Patient encounter procedure MICKEY SPAULDING QUALITY ANALYST/TECHNICAL WRITER-CAREER DISCOVERY TEACHER [facility] Start: 04-12-2021 End: 04-12-2021 Patient encounter procedure MICKEY SPAULDING QUALITY ANALYST/TECHNICAL WRITER-CAREER DISCOVERY TEACHER [facility] Start: 11-29-2016 End: 11-30-2016 Ambulatory SKYLA PORTILLO Facility:[facility] Procedures Date Procedure Procedure Detail Performing Clinician Start: 12-08-2024 MRI of brain without contrast Marcos Harper DIE CASTING SUPERVISOR-C Work Phone: Start: 11-30-2024 Plain X-ray abdomen Rya n Balmatthew DIE CASTING SUPERVISOR-C Work Phone: Start: 11-30-2024 Estimated creatinine clearance Marcos Baltes DIE CASTING SUPERVISOR-C Work Phone: Start: 11-30-2024 Serum inorganic phos phate measurement Marcos Balmatthew DIE CASTING SUPERVISOR-C Work Phone: Start: 11-29-2024 Plain chest X-ray Marcos Balmatthew DIE CASTING SUPERVISOR-C Work Phone: Start: 11-29-2024 Coagulation time, activated Marcos Balmatthew DIE CASTING SUPERVISOR-C Work Phone: Start: 09-01-2024 Hepatitis C antibody measurement Marcos Balmatthew DIE CASTING SUPERVISOR-C Work Phone: Comment on above: Reactive: Presumptiv e evidence of antibodies to HCV. Follow CDC recommendations for supplemental testing.Non-Reactive: Antibodies to HCV were not detected; does not exclude the possibility of exposure to HCVReactive Results are presumptive evidence of antibodies to HCV. Follow CDC recommendations for supplemental testing.Order confirmation testing: HCV Quant by PCR testing - HCVPCR #[id number] Non Reactive: < 0.8 Equivocal: >/= 0.8 to < 1.0 Reactive: >/= 1.0The CDC requires that a reactive/equivocal HCV antibody result be sent out for confirmation. HCV Quant by PCR testing. Start: 09-01-2024 Vitamin D, 25-hydrox y measurement Marcos Harper DIE CASTING SUPERVISOR-C Work Phone: Comment on above: Vitamin D StatusDefi ciency: <20 ng/mL (50nmol/L)Insufficiency: 20-30 ng/mL (50-75 nmol/L)Sufficiency: 30-100 ng/mL (75-250 nmol/L)Toxicity: >100 ng/mL (>250 nmol/L) Start: 08-20-2024 X-ray of chest, PA a nd lateral views Marcos Harper DIE CASTING SUPERVISOR-C Work Phone: Start: 08-20-2024 Evaluation of diagno stic study results Marcos Harper DIE CASTING SUPERVISOR-C Work Phone: Start: 08-22-2023 Cardiovascular stres s test using pharmacologic stress agent DIE CASTING SUPERVISOR-C Ilene Anderson DIE CASTING SUPERVISOR Work Phone: Start: 01-31-2022 CT of chest Start: 02-10-2018 Repair of hip MICKEY S EFFENS QUALITY ANALYST/TECHNICAL WRITER-CAREER DISCOVERY TEACHER Comment on above: RIGHT ANTERIOR HIP R EPLACEMENT Start: 08-26-2017 Total replacement of left hip joint MICKEY SEFFENS QUALITY ANALYST/TECHNICAL WRITER-CAREER DISCOVERY TEACHER Cataract (morphologi c abnormality) MICKEY SEFFENS QUALITY ANALYST/TECHNICAL WRITER-CAREER DISCOVERY TEACHER Comment on above: REBECCA Cholecystectomy MICKEY SEFF ENS QUALITY ANALYST/TECHNICAL WRITER-CAREER DISCOVERY TEACHER Comment on above: 1990S Colonoscopy MICKEY SEFFENS QUALITY ANALYST/TECHNICAL WRITER-CAREER DISCOVERY TEACHER Dilation of urethra MICKEY SEFFENS QUALITY ANALYST/TECHNICAL WRITER-CAREER DISCOVERY TEACHER Tonsillectomy MICKEY SEFFEN S QUALITY ANALYST/TECHNICAL WRITER-CAREER DISCOVERY TEACHER Plan of Treatment Date Care Activity Detail Author Start: 12-16-2024 CT Chest WO contrast [facility] Start: 12-16-2024 CT of chest without contrast Chest without Contrast [facility] Start: 12-02-2024 Electrocardiographic procedure [facility] Start: 12-01-2024 Patient discharge [facility] Start: 12-01-2024 Electrocardiographic procedure [facility] Start: 12-01-2024 Referral to occupational therapist [facility] Start: 12-01-2024 End: 12-01-2024 Referral to service [facility] Start: 11-30-2024 Care planning and problem solving actions [facility] Start: 11-30-2024 [facility] Start: 11-30-2024 [facility] Start: 11-30-2024 Inhalation therapy procedure [facility] Start: 11-29-2024 Care regimes management [facility] Start: 11-29-2024 End: 11-29-2024 Notification of physician [facility] Start: 11-29-2024 Assessment of risk of venous thromboembolism [facility] Start: 11-29-2024 Continuous pulse oximetry [facility] Start: 11-29-2024 Insertion of catheter into peripheral vein [facility] Start: 11-29-2024 Measuring intake and output [facility] Start: 11-29-2024 Providing care according to standard [facility] Start: 11-29-2024 Verification routine [facility] Start: 11-29-2024 Vital signs measurements [facility] Start: 11-29-2024 End: 11-29-2024 [facility] Start: 11-29-2024 Consultation [facility] Start: 11-29-2024 Admission procedure [facility] Start: 11-29-2024 Following clinical pathway protocol [facility] Start: 11-29-2024 Cardiac monitoring [facility] Start: 11-29-2024 Cardiac rehabilitation - phase 1 [facility] Start: 11-29-2024 Notification of physician [facility] Start: 11-29-2024 Oxygen therapy [facility] Start: 11-29-2024 Patient discharge [facility] Start: 11-29-2024 Pulse taking [facility] Start: 11-29-2024 End: 11-29-2024 [facility] 24 Hour ECG [facility] Basic metabolic 2008 panel with ionized calcium - Serum or Plasma [facility] CBC W Auto Different ial panel - Blood [facility] Hemoglobin A1c/Hemog lobin.total in Blood [facility] Immunizations Immunization Date Immunization Notes Care Provider Fa cili 05-09-[address] PATO WEST MD [facility] 03-07-[address] PATO WEST MD [facility] 03-04-2022 influenza, injectabl e, quadrivalent, contains preservative DR PATO WEST MD [facility] 08-20-2021 pneumococcal polysaccharide vaccine, 23 valent; Translations: [Pneumovax 23] ILENE AYERSERS QUALITY ANALYST/TECHNICAL WRITER-CAREER DISCOVERY TEACHER [facility] 04-12-2021 SARS-CoV-2 mRNA (tozinameran) vaccine ILENE ANDERSON QUALITY ANALYST/TECHNICAL WRITER-CAREER DISCOVERY TEACHER [facility] Comment on above: Result Comment: 2021: [id number] 03-26-2021 influenza, high dose seasonal, preservative-free; Translations: [Fluad Quadrivalent PF ] MICKEY SPAULDING QUALITY ANALYST/TECHNICAL WRITER-CAREER DISCOVERY TEACHER [facility] 08-24-2020 SARS-CoV-2 mRNA (tozinameran) vaccine MICKEY PAULSONKATHI QUALITY ANALYST/TECHNICAL WRITER-CAREER DISCOVERY TEACHER [facility] 08-03-2020 SARS-CoV-2 mRNA (tozinameran) vaccine MICKEY PAULSONKATHI QUALITY ANALYST/TECHNICAL WRITER-CAREER DISCOVERY TEACHER [facility] Comment on above: Result Comment: 2020: [id number] 02-11-2017 influenza virus vacc ine, unspecified formulation MICKEY SPAULDING QUALITY ANALYST/TECHNICAL WRITER-CAREER DISCOVERY TEACHER [facility] Payers Date Payer Category Payer Medicare [id number] 2024 Self-pay [id number] 2023 Unknown [id number] 2023 Private Health Insurance [id number] 2016 Private Health Insurance [id number] 1950 Unknown [id number] 2.16.840.1.080766.3.579.2.62 7 1949 Unknown [id number] 2.16.840.1.626043.3.579.2.62 7 1949 Unknown [id number] 2.16.840.1.858619.3.579.2.62 7 1949 Unknown [id number] 2.16.840.1.753056.3.579.2.62 7 1949 Unknown [id number] 2.16.840.1.586267.3.579.2.62 7 1949 Unknown [id number] 2.16.840.1.164527.3.579.2.62 7 1949 Unknown [id number] 2.16.840.1.403020.3.579.2.62 7 1949 Unknown [id number] 2.16.840.1.126051.3.579.2.62 7 1949 Unknown [id number] 2.16.840.1.044636.3.579.2.62 7 1949 Unknown [id number] 2.16.840.1.946198.3.579.2.62 7 1949 Unknown [id number] 2.16.840.1.421875.3.579.2.62 7 1949 Unknown [id number] 2.16.840.1.023072.3.579.2.62 7 1949 Unknown [id number] 2.16.840.1.530985.3.579.2.62 7 1949 Unknown [id number] 2.16.840.1.765920.3.579.2.62 7 Private Health Insurance HUMANA MCR HMO IN [facility] [id number] Unknown [id number] 2.16.840.1.999805.3.579.2.46 2 Unknown [id number] 2.16.840.1.521428.3.579.2.46 2 Unknown [id number] 2.16.840.1.033319.3.579.2.46 2 Unknown [id number] 2.16.840.1.488565.3.579.2.46 2 Unknown [id number] 2.16.840.1.898525.3.579.2.46 2 Unknown [id number] 2.16.840.1.346325.3.579.2.46 2 Unknown [id number] 2.16.840.1.265985.3.579.2.46 2 Unknown [id number] 2.16.840.1.524548.3.579.2.46 2 Unknown [id number] 2.16.840.1.336787.3.579.2.46 2 Unknown [id number] 2.16.840.1.908193.3.579.2.46 2 Unknown [id number] 2.16.840.1.386395.3.579.2.46 2 Unknown [id number] 2.16.840.1.051178.3.579.2.46 2 Unknown [id number] 2.16.840.1.931116.3.579.2.46 2 Unknown [id number] 2.16.840.1.786237.3.579.2.46 2 Unknown [id number] 2.16.840.1.089295.3.579.2.46 2 Unknown [id number] 2.16.840.1.834039.3.579.2.46 2 Unknown [id number] 2.16.840.1.211014.3.579.2.46 2 Unknown [id number] 2.16.840.1.454131.3.579.2.46 2 Unknown [id number] 2.16.840.1.743984.3.579.2.46 2 Unknown [id number] 2.16.840.1.279231.3.579.2.46 2 Unknown [id number] 2.16.840.1.815028.3.579.2.46 2 Unknown [id number] 2.16.840.1.225847.3.579.2.46 2 Unknown [id number] 2.16.840.1.855890.3.579.2.46 2 Social History Date Type Detail Facility Start: 12-24-2018 Light tobacco smoker (finding) [facility] Start: 1950 Sex Assigned At Male A [facility] Start: 07-24-2021 End: 08-20-2024 Smokes tobacco daily (finding) [facility] Start: 09-06-2021 End: 07-17-2023 Tobacco smoking status WVIS Unknown if ever smoked [facility] Start: 03-29-2020 None [facility] Start: 08-10-2020 Pipe [facility] Start: 01-20-2024 Tobacco smoking status Occasional tobacco smoker (finding) [facility] Start: 08-24-2024 End: 09-06-2024 Sex Male (finding) [facility] Start: 11-29-2024 Tobacco smoking status NHIS Ex-smoker (finding) [facility] Medical Equipment Procedure Code Equipment Code Equipment Origin al Text Equipment Identifier Dates FDA Start: 02-10-2018 FDA Start: 02-10-2018 FDA Start: 02-10-2018 FDA Start: 02-10-2018 FDA Start: 02-10-2018 FDA Start: 02-10-2018 FDA Start: 02-10-2018 FDA Start: 02-10-2018 FDA Start: 02-10-2018 FDA Start: 02-10-2018 FDA Start: 02-10-2018 FDA Start: 02-10-2018 FDA Start: 02-10-2018 FDA Start: 02-10-2018 FDA Start: 02-10-2018 FDA Start: 02-10-2018 MONTEZ COTO ME Arriaga CRISSY FDA Start: 03-29-2020 JOELLEN COTOKATIA Bart CRISSY FDA Start: 03-29-2020 Unknown Unknown 9/18/18 Unknown [...] 02-10-2018 FDA Start: 02-10-2018 FDA Start: 02-10-2018 CHICAVIRGINIACANDE Arriaga CRISSY FDA Start: 03-29-2020 CHICAJOELLENKATIA Arriaga CRISSY FDA Start: 03-29-2020 Unknown Unknown 9/18/18 Unknown [...] Start: 02-10-2018 FDA Start: 02-10-2018 MONTEZ COTO Bart CRISSY FDA Start: 03-29-2020 MONTEZ COTO FDA Start: 03-29-2020 MONTEZ COTO Bart BERGKATIA FDA Start: 03-29-2020 CHICAMONTEZ MCGRATH Bart BERGKATIA FDA Start: 03-29-2020 CHICAMONTEZ MCGRATH Bart CRISSY FDA Start: 03-29-2020 CHICAMONTEZ MCGRATH Bart BERGKATIA FDA Start: 03-29-2020 CHICAMONTEZ MCGRATH Bart BERGKATIA FDA Start: 03-29-2020 CHICAMONTEZ MCGRATH Bart CRISSY FDA Start: 03-29-2020 MONTEZ COTO Bart CRISSY FDA Start: 03-29-2020 CHICAMONTEZ MCGRATH Bart BERGKATIA FDA Start: 03-29-2020 CHICAMONTEZ MCGRATH Bart BERGKATIA FDA Start: 03-29-2020 CHICAMONTEZ MCGRATH Bart CRISSY FDA Start: 03-29-2020 MONTEZ COTO FDA Start: 03-29-2020 CHICAMONTEZ WOODWARD FDA Start: 03-29-2020 Drug-eluting coronary artery stent, pql-mwrouofmxidmo-zi lymer-coated ([id number] FDA Start: 11-29-2024 CHICAMONTEZ MCGRATH Bart WOODWARD FDA Start: 03-29-2020 CHICAMONTEZ MCGRATH Bart BERGKATIA FDA Start: 03-29-2020 CHICAMONTEZ MCGRATH Bart BERGKATIA FDA Start: 03-29-2020 MONTEZ COTO Bart CRISSY FDA Start: 03-29-2020 MONTEZ COTO Bart CRISSY FDA Start: 03-29-2020 CHICAMONTEZ MCGRATH Bart BERGKATIA FDA Start: 03-29-2020 Goals Date Patient Goal Desired Activity /State Functional Status Date Assessment Result Facility 12-01-2024 Functional status Chair [facility] Work Phone: 11-30-2024 Functional status Bedside [facility] Work Phone: 07-15-2022 Functional Status Activity Statu s ADL Up to bathroom [facility] 07-15-2022 Functional Status Maintained, More than 8 hours [facility] Mental Status Date Assessment Result Facility 12-01-2024 Cognitive function Awake;Alert;A ppropriate;Foll ows Commands [facility] Work Phone: 12-01-2024 Cognitive function Voice/Name [facility] Work Phone: 11-30-2024 Cognitive function Voice/Name [facility] Work Phone: 11-29-2024 Cognitive function [facility] Work Phone: 07-15-2022 Mental Status Orientation Oriented x 4 [facility] 07-15-2022 Mental Status [facility] Clinical Notes 06-21-2022 to 12-01-2024 Note Date & Type Note Facility 12-01-2024 Discharge summary Note Date/Time December 01, 2024 10:03am [facility] Medical Records Department [address] [place] [id number] Discharge Summary 12/01/24 0955 MR#: [id number] Acct: [id number] Name: ANGI JACKSON Rep #:[id number] : 1950 74 From: Hira Mathias DO PCP: Dr. Jovany Brush MD Status:ADM I N Location: ICU ICU-1 Providers Date of Admission: 11/29/24 Primary Care Physician: Dr. Jovany Brush MD Consultations 11/29/24 15:06 Consult: Hospitalist Routine Consulting Provider: Margarita Levy Reason for Consult: medical management and admission EMERGENT Consult: No MD Notified: Yes Date Notified: 11/29/24 Time Notified: 15:07 Method of Notification: Text Reason For Visit: Atherosclerotic heart disease of [place] coronary a Diagnosis Discharge Diagnosis (1) Stented coronary artery: Status: Chronic Code(s): Z95.5 - Presence of coronary angioplasty implant and graft Plan: weaned off nitroglycerin Continue ticagrelor, aspirin, apixaban. To be continued for 1 month and then apixaban and clopidogrel (2) Abdominal pain: Status: Acute Code(s): R10.9 - Unspecified abdominal pain Plan: Improved. Secondary to constipation. Abdominal x-ray performed and showed no bowel obstruction or ileus. Noted stool. Pt received 1 x dose of Mag citrate and did have several bowel movements Plan Paroxysmal atrial fibrillation: Continue with metoprolol and apixaban COPD: Not in exacerbation. HFpEF: Stable. GERD: Continue PPI. Chronic pain: Complicates care and recovery. Buprenorphine patch. 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 VTE prophylaxis: Not indicated patient is already apixaban Discharge home. Medications at Discharge Home Medications fluticasone fur. 100 mcg-umeclid 62.5 mcg-vilant 25 mcg inhalat.powder 1 inh inhalation DAILY 09/06/21 duloxetine 60 mg capsule,delayed release 60 mg PO DAILY 04/25/22 ondansetron HCl 4 mg tablet 4 mg PO QHS PRN nausea and vomiting 07/17/23 albuterol sulfate 90 mcg/actuation aerosol inhaler 1 inh inhalation Q8H PRN shortness of breath or wheezing 10/31/23 fluticasone propionate 50 mcg/actuation nasal spray,suspension 1 spray intranasal 10/31/23 metoprolol tartrate 50 mg tablet 50 mg PO BID 10/31/23 omeprazole 40 mg capsule,delayed release 40 mg PO BID 10/31/23 fexofenadine 180 mg tablet 180 mg PO Q24H 08/20/24 pregabalin 50 mg capsule (Lyrica) 50 mg PO BID 08/20/24 isosorbide mononitrate 30 mg tablet,extended release 24 hr 30 mg PO DAILY #90 TABLETS 08/30/24 apixaban 5 mg tablet (Eliquis) 5 mg PO BID 09/17/24 atorvastatin 40 mg tablet 40 mg PO QHS 09/17/24 budesonide 160 mcg-glycopyr 9 mcg-formot 4.8 mcg/actuation HFA inhaler (Ireneztri Aerosphere) 2 inh inhalation BID 09/17/24 buprenorphine 20 mcg/hour weekly transdermal patch 1 patch transdermal QWEEK 09/17/24 furosemide 40 mg tablet (Lasix) 40 mg PO BID #90 tabs 09/17/24 lactobacillus combination no.9 [Adult 50 Plus Probiotic] PO DAILY 09/17/24 sucralfate 1 gram tablet PO 09/17/24 spironolactone 25 mg tablet 25 mg PO QDAY #30 tabs 09/21/24 empagliflozin 10 mg tablet (Jardiance) 10 mg PO QAM #30 tabs 10/27/24 aspirin 81 mg tablet,delayed release 81 mg PO BREAKFAST #0 tabs 12/01/24 ticagrelor 90 mg tablet (Brilinta) 90 mg PO BID #60 tabs 12/01/24 Hospital Course Operations None Procedures Cardiac catheterization Summary of Care Provided Minutes Spent on Discharge: 32 Hospital Course: Patient underwent a left heart catheterization on the where he had successful PCI to high-grade lesion involving the mid LAD. Additionally there is noted to be a sidebranch which is a diagonal branch was not intervened upon given the small size. Patient did have chest pain afterwards and was admitted to the intensive care unit and with patient was placed on a nitroglycerin drip. Eventually that was weaned off chest pain did overall improved. He did have abdominal pain did have a abdominal x-ray that did show constipation. Patient did receive magnesium citrate which she did have several bowel movements thereafter and his abdomen is feeling better. Patient does complain of being short of breath but he is taking short shallow breaths but his pulse ox is actually normal. Patient will be discharged home in stable condition with follow-up with cardiology. Weight / BMI Weight Weight: 93.7 kg Body Mass Index (BMI) 28.0 ABG / Lab / Microbiology Data 11/30/24 03:30 11/30/24 03:30 Laboratory: Laboratory Results - last 24 hr 11/30/24 03:30: Hemoglobin A1c 8.5 H 11/30/24 12:34: POC Glucose 155 H 11/30/24 16:31: POC Glucose 163 H Radiography Diagnostic Testing: Radiology Impression Echocardiogram 11/29/24 16:19 Interpretation Summary Normal LV size. Left ventricular systolic function is normal. Mild concentric left ventricular hypertrophy. The left ventricular ejection fraction is 60 %. The right atrium is mildly enlarged. Stage 3 diastolic dysfunction. Ordering Physician: Margarita Levy Referring Physician: Jovany Brush Chi Performed By: Mamie Del Rosario, MISSAELCS, RVT Abdomen X-Ray 11/30/24 12:56 IMPRESSION: Moderate amount of fecal material is seen in the colon. Reading Location: [place] [address] D/C Instructions Discharge Diet: Low fat / Low cholesterol DC O2, CPAP, BIPAP Needs Home O2 Discharge instructions: No Meaningful Use Info Meaningful Use Meaningful Use Diagnoses (Choose all that apply): None applicable Ischemic Stroke Statin Dosing Therapy Reference: STATIN DOSE THERAPY REFERENCE: * Patients > 75 years receive moderate or high dose statin therapy. * Patients 75 years or YOUNGER should receive HIGH intensity statin dose unless contraindicated. You will be required to document reason for non-treatment if statin daily dose does not meet guidelines. HIGH DOSE STATIN THERAPY DAILY Atorvastatin > than or = to 40 mg Rosuvastatin > than or = to 20 mg Amlodipine + Atorvastatin > than or = to 2.5/40 mg Ezetimibe + Simvastatin 10/80 mg Simvastatin 80mg Discharge Plan Admission Admit Date/Time: 11/29/24 14:58 Primary Reason for Your Visit: status PCI Attending Provider: Fco Aguilera Primary Care Provider: Jovany Brush Chi Consulting Providers: Maikel Liang; Hira Mathias Discharge Orders/Prescriptions Prescriptions: New aspirin 81 mg Tablet,Delayed Release (Dr/Ec) 81 mg PO BREAKFAST Qty: 0 0RF ticagrelor [Brilinta] 90 mg Tablet 90 mg PO BID Qty: 60 0RF Continued dvzluktwqms-gfqkqocyv-pnvgtmjr 100-62.5-25 mcg blister with device 1 inh inhalation DAILY duloxetine 60 mg capsule,delayed release(DR/EC) 60 mg PO DAILY ondansetron HCl 4 mg tablet 4 mg PO QHS PRN (Reason: nausea and vomiting) omeprazole 40 mg capsule,delayed release(DR/EC) 40 mg PO BID metoprolol tartrate 50 mg tablet 50 mg PO BID albuterol sulfate 90 mcg/actuation HFA aerosol inhaler 1 inh inhalation Q8H PRN (Reason: shortness of breath or wheezing) fluticasone propionate 50 mcg/actuation spray,suspension 1 spray intranasal fexofenadine 180 mg tablet 180 mg PO Q24H pregabalin [Lyrica] 50 mg capsule 50 mg PO BID Eliquis 5 mg tablet 5 mg PO BID sucralfate 1 gram tablet PO buprenorphine 20 mcg/hour patch weekly 1 patch transdermal QWEEK atorvastatin 40 mg tablet 40 mg PO QHS lactobacillus combination no.9 [Adult 50 Plus Probiotic] PO DAILY Breztri Aerosphere 160-9-4.8 mcg/actuation HFA aerosol inhaler 2 inh inhalation BID furosemide [Lasix] 40 mg tablet 40 mg PO BID Qty: 90 3RF spironolactone 25 mg tablet 25 mg PO QDAY Qty: 30 3RF isosorbide mononitrate 30 mg tablet extended release 24 hr 30 mg PO DAILY Qty: 90 3RF Jardiance 10 mg tablet 10 mg PO QAM Qty: 30 11RF Referrals / Follow Up: [facility] [Provider Group] - 12/16/24 2:30 pm Jovany Brush Chi, MD [Primary Care Provider] - Within 2 Weeks Disposition Disposition (needs filled in before D/C Order can be placed): Home, Self Care Charges/Coding Visit Charges Inpatient E&M: 92759 Disch Hosp >30min 12/01/24 1003 <Electronically signed by Hira Mathias DO> Cosigner Signature (if applicable): CC: Dr. Hira Mathias DO; Dr. Jovany Brush MD~ Signed [facility] Work Phone: 1(662) 833-856207-09-2025 Progress note Author Hira Mathias [facility] Note Date/Time December 01, 2024 9:55a m [facility] Medical Records Department [address] [place] [address] Progress Note - Hospitalist 07/02/17 709 MR#: [id number] Acct: [id number] Name: ANGI JACKSON Rep #:[id number] : 1950 74 From: Hira Mathias DO PCP: Dr. Jovany Brush MD Status:ADM I N Location: ICU [place] [address] Reason for Visit Reason for Visit: Diagnoses Mixed hyperlipidemia (11/29/24) Essential (primary) hypertension (11/29/24) Atherosclerotic heart disease of [place] coronary artery without angina pectoris (11/29/24) Longstanding persistent atrial fibrillation (11/29/24) Acute diastolic (congestive) heart failure (11/29/24) Other forms of dyspnea (11/29/24) Unspecified abdominal pain (11/29/24) Encounter for therapeutic drug level monitoring (11/29/24) senior living (current) use of anticoagulants (11/29/24) Presence of coronary angioplasty implant and graft (11/29/24) Subjective Subjective Still feels short of breath. Though patient is off oxygen and his pulse ox is in the high 90s. Abdomen is feeling better after numerous bowel movements. Objective Data Objective Data Vital Signs: Vital Signs Temp Pulse Resp BP Pulse Ox O2 Del Method O2 Flow Rate 36.6 C 64 15 132/73 H 100 Nasal Cannula 2 12/01/24 03:15 12/01/24 03:15 12/01/24 03:15 12/01/24 03:15 12/01/24 03:15 12/01/24 03:19 12/01/24 03:19 Oxygen Flow Rate (L/min) 2 Oxygen Delivery Method Nasal Cannula Weight: 93.7 kg Body Mass Index (BMI) 28.0 Intake & Output: Intake and Output for Last 24 Hours 11/29/24 11/30/24 12/01/24 23:59 23:59 23:59 Intake Total 231.55 / 237.55 939.75 / 939.75 Output Total 450 / 450 1200 / 1400 500 / 500 Balance -218.45 / -212.45 -260.25 / -460.25 -500 / -500 Lab / Micro Data 11/30/24 03:30 11/30/24 03:30 Labs: Laboratory Results - last 24 hr 11/30/24 03:30: Hemoglobin A1c 8.5 H 11/30/24 07:38: POC Glucose 168 H 11/30/24 12:34: POC Glucose 155 H 11/30/24 16:31: POC Glucose 163 H Radiography Diagnostic Testing: Radiology Impression Echocardiogram 11/29/24 16:19 Interpretation Summary Normal LV size. Left ventricular systolic function is normal. Mild concentric left ventricular hypertrophy. The left ventricular ejection fraction is 60 %. The right atrium is mildly enlarged. Stage 3 diastolic dysfunction. Ordering Physician: Margarita Levy Referring Physician: Jovany Brush Chi Performed By: Mamie Del Rosario, RDCS, RVT Abdomen X-Ray 11/30/24 12:56 IMPRESSION: Moderate amount of fecal material is seen in the colon. Reading Location: [place] [address] Physical Exam Const alert and no apparent distress Constitutional Narrative: Anxious. Short shallow breathing. Pulse ox remained 97 to 98% on room air during encounter. HEENT head/scalp atraumatic and moist oral mucous membranes Resp normal respiratory effort, no retractions, no use of accessory muscles and clearto auscultation bilaterally Cardio regular rate, regular rhythm, S1 normal heart sound and S2 normal heart sound GI normal to inspection, nondistended, normoactive bowel sounds, soft to palpation,non-tender and non-distended Extremity normal to inspection and full ROM Assessment & Plan Assessment/Plan (1) Stented coronary artery: PLAN: weaned off nitroglycerin Continue ticagrelor, aspirin, apixaban. To be continued for 1 month and then apixaban and clopidogrel (2) Abdominal pain: PLAN: Improved. Secondary to constipation. Abdominal x-ray performed and showed no bowel obstruction or ileus. Noted stool. Pt received 1 x dose of Mag citrate and did have several bowel movements PLAN: Plan Paroxysmal atrial fibrillation: Continue with metoprolol and apixaban COPD: Not in exacerbation. HFpEF: Stable. GERD: Continue PPI. Chronic pain: Complicates care and recovery. Buprenorphine patch. 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 VTE prophylaxis: Not indicated patient is already apixaban Discharge home. 12/01/24954 <Electronically signed by Hira Mathias DO> Cosigner Signature (if applicable): CC: ~ Signed [facility] Work Phone: 1(285) 792-981107-09-2025 Discharge summary [facility] Medical Records Department [address] [place] [address] Discharge Summary 12/01/24954 MR#: [id number] Acct: [id number] Name: ANGI JACKSON Rep #:[id number] : 1950 74 From: Hira Mathias DO PCP: Dr. Jovany Brush MD Status:ADM I N [facility] Prov[facility] Date of Admission: 11/29/24 Primary Care Physician: Dr. Jovany Brush MD Consultations 11/29/24 15:06 Consult: Hospitalist Routine Consulting Provider: Margarita Levy Reason for Consult: medical management and admission EMERGENT Consult: No MD Notified: Yes Date Notified: 11/29/24 Time Notified: 15:07 Method of Notification: Text Reason For Visit: Atherosclerotic heart disease of [place] coronary a Diagnosis Discharge Diagnosis (1) Stented coronary artery: Status: Chronic Code(s): Z95.5 - Presence of coronary angioplasty implant and graft Plan: weaned off nitroglycerin Continue ticagrelor, aspirin, apixaban. To be continued for 1 month and then apixaban and clopidogrel (2) Abdominal pain: Status: Acute Code(s): R10.9 - Unspecified abdominal pain Plan: Improved. Secondary to constipation. Abdominal x-ray performed and showed no bowel obstruction or ileus. Noted stool. Pt received 1 x dose of Mag citrate and did have several bowel movements Plan Paroxysmal atrial fibrillation: Continue with metoprolol and apixaban COPD: Not in exacerbation. HFpEF: Stable. GERD: Continue PPI. Chronic pain: Complicates care and recovery. Buprenorphine patch. 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 VTE prophylaxis: Not indicated patient is already apixaban Discharge home. Medications at Discharge Home Medications fluticasone fur. 100 mcg-umeclid 62.5 mcg-vilant 25 mcg inhalat.powder 1 inh inhalation DAILY 09/06/21 duloxetine 60 mg capsule,delayed release 60 mg PO DAILY 04/25/22 ondansetron HCl 4 mg tablet 4 mg PO QHS PRN nausea and vomiting 07/17/23 albuterol sulfate 90 mcg/actuation aerosol inhaler 1 inh inhalation Q8H PRN shortness of breath or wheezing 10/31/23 fluticasone propionate 50 mcg/actuation nasal spray,suspension 1 spray intranasal 10/31/23 metoprolol tartrate 50 mg tablet 50 mg PO BID 10/31/23 omeprazole 40 mg capsule,delayed release 40 mg PO BID 10/31/23 fexofenadine 180 mg tablet 180 mg PO Q24H 08/20/24 pregabalin 50 mg capsule (Lyrica) 50 mg PO BID 08/20/24 isosorbide mononitrate 30 mg tablet,extended release 24 hr 30 mg PO DAILY #90 TABLETS 08/30/24 apixaban 5 mg tablet (Eliquis) 5 mg PO BID 09/17/24 atorvastatin 40 mg tablet 40 mg PO QHS 09/17/24 budesonide 160 mcg-glycopyr 9 mcg-formot 4.8 mcg/actuation HFA inhaler (Breztri Aerosphere) 2 inh inhalation BID 09/17/24 buprenorphine 20 mcg/hour weekly transdermal patch 1 patch transdermal QWEEK 09/17/24 furosemide 40 mg tablet (Lasix) 40 mg PO BID #90 tabs 09/17/24 lactobacillus combination no.9 [Adult 50 Plus Probiotic] PO DAILY 09/17/24 sucralfate 1 gram tablet PO 09/17/24 spironolactone 25 mg tablet 25 mg PO QDAY #30 tabs 09/21/24 empagliflozin 10 mg tablet (Jardiance) 10 mg PO QAM #30 tabs 10/27/24 aspirin 81 mg tablet,delayed release 81 mg PO BREAKFAST #0 tabs 12/01/24 ticagrelor 90 mg tablet (Brilinta) 90 mg PO BID #60 tabs 12/01/24 Hospital Course Operations None Procedures Cardiac catheterization Summary of Care Provided Minutes Spent on Discharge: 32 Hospital Course: Patient underwent a left heart catheterization on the seventh where he had successful PCI to high-grade lesion involving the mid LAD. Additionally there is noted to be a sidebranch which is a diagonal branch was not intervened upon given the small size. Patient did have chest pain afterwards and was admitted to the intensive care unit and with patient was placed on a nitroglycerin drip. Eventually that was weaned off chest pain did overall improved. He did have abdominal pain did have a abdominal x-ray that did show constipation. Patient did receive magnesium citrate which she did have several bowel movements thereafter and his abdomen is feeling better. Patient does complain of being shortof breath but he is taking short shallow breaths but his pulse ox is actually normal. Patient will be discharged home in stable condition with follow-up with cardiology. Weight / BMI Weight Weight: 93.7 kg Body Mass Index (BMI) 28.0 ABG / Lab / Microbiology Data 11/30/24 03:30 11/30/24 03:30 Laboratory: Laboratory Results - last 24 hr 11/30/24 03:30: Hemoglobin A1c 8.5 H 11/30/24 12:34: POC Glucose 155 H 11/30/24 16:31: POC Glucose 163 H Radiography Diagnostic Testing: Radiology Impression Echocardiogram 11/29/24 16:19 Interpretation Summary Normal LV size. Left ventricular systolic function is normal. Mild concentric left ventricular hypertrophy. The left ventricular ejection fraction is 60 %. The right atrium is mildly enlarged. Stage 3 diastolic dysfunction. Ordering Physician: Margarita Levy Referring Physician: Jovany Brush Chi Performed By: Mamie Del Rosario, RDCS, RVT Abdomen X-Ray 11/30/24 12:56 IMPRESSION: Moderate amount of fecal material is seen in the colon. Reading Location: [place] [address] D/C Instructions Discharge Diet: Low fat / Low cholesterol DC O2, CPAP, BIPAP Needs Home O2 Discharge instructions: No Meaningful Use Info Meaningful Use Meaningful Use Diagnoses (Choose all that apply): None applicable Ischemic Stroke Statin Dosing Therapy Reference: STATIN DOSE THERAPY REFERENCE: * Patients > 75 years receive moderate or high dose statin therapy. * Patients 75 years or YOUNGER should receive HIGH intensity statin dose unless contraindicated. You will be required to document reason for non-treatment if statin daily dose does not meet guidelines. HIGH DOSE STATIN THERAPY DAILY Atorvastatin > than or = to 40 mg Rosuvastatin > than or = to 20 mg Amlodipine + Atorvastatin > than or = to 2.5/40 mg Ezetimibe + Simvastatin 10/80 mg Simvastatin 80mg Discharge Plan Admission Admit Date/Time: 11/29/24 14:58 Primary Reason for Your Visit: status PCI Attending Provider: Fco Aguilera Primary Care Provider: Jovany Brush Chi Consulting Providers: Maikel Liang; Hira Mathias Discharge Orders/Prescriptions Prescriptions: New aspirin 81 mg Tablet,Delayed Release (Dr/Ec) 81 mg PO BREAKFAST Qty: 0 0RF ticagrelor [Brilinta] 90 mg Tablet 90 mg PO BID Qty: 60 0RF Continued ytagjkjtcoq-vunvxgigh-svpzdgwj 100-62.5-25 mcg blister with device 1 inh inhalation DAILY duloxetine 60 mg capsule,delayed release(DR/EC) 60 mg PO DAILY ondansetron HCl 4 mg tablet 4 mg PO QHS PRN (Reason: nausea and vomiting) omeprazole 40 mg capsule,delayed release(DR/EC) 40 mg PO BID metoprolol tartrate 50 mg tablet 50 mg PO BID albuterol sulfate 90 mcg/actuation HFA aerosol inhaler 1 inh inhalation Q8H PRN (Reason: shortness of breath or wheezing) fluticasone propionate 50 mcg/actuation spray,suspension 1 spray intranasal fexofenadine 180 mg tablet 180 mg PO Q24H pregabalin [Lyrica] 50 mg capsule 50 mg PO BID Eliquis 5 mg tablet 5 mg PO BID sucralfate 1 gram tablet PO buprenorphine 20 mcg/hour patch weekly 1 patch transdermal QWEEK atorvastatin 40 mg tablet 40 mg PO QHS lactobacillus combination no.9 [Adult 50 Plus Probiotic] PO DAILY Breztri Aerosphere 160-9-4.8 mcg/actuation HFA aerosol inhaler 2 inh inhalation BID furosemide [Lasix] 40 mg tablet 40 mg PO BID Qty: 90 3RF spironolactone 25 mg tablet 25 mg PO QDAY Qty: 30 3RF isosorbide mononitrate 30 mg tablet extended release 24 hr 30 mg PO DAILY Qty: 90 3RF Jardiance 10 mg tablet 10 mg PO QAM Qty: 30 11RF Referrals / Follow Up: [facility] [Provider Group] - 12/16/24 2:30 pm Jovany Brush Chi, MD [Primary Care Provider] - Within 2 Weeks Disposition Disposition (needs filled in before D/C Order can be placed): Home, Self Care Charges/Coding Visit Charges Inpatient E&M: 07651 Disch Hosp >30min 12/01/24 1003 Cosigner Signature (if applicable): CC: Dr. Hira Mathias DO; Dr. Jovany Brush MD~ Signed [facility]07-09-2025 [facility] Medical Records Department [address] [place] [address] Discharge Summary 12/01/24 0955 MR#: [id number] Acct: [id number] Name: ANGI JACKSON Rep #: [id number] : 1950 74 From: Hira Mathias DO PCP: Dr. Jovany Brush MD Status:ADM IN Location: ICU ICU05-1 Providers Date of Admission: 11/29/24 Primary Care Physician: Dr. Jovany Brush MD Consultations 11/29/24 15:06 Consult: Hospitalist Routine Consulting Provider: Margarita Levy Reason for Consult: medical management and admission EMERGENT Consult: No MD Notified: Yes Date Notified: 11/29/24 Time Notified: 15:07 Method of Notification: Text Reason For Visit: Atherosclerotic heart disease of [place] coronary a Diagnosis Discharge Diagnosis (1) Stented coronary artery: Status: Chronic Code(s): Z95.5 - Presence of coronary angioplasty implant and graft Plan: weaned off nitroglycerin Continue ticagrelor, aspirin, apixaban. To be continued for 1 month and then apixaban and clopidogrel (2) Abdominal pain: Status: Acute Code(s): R10.9 - Unspecified abdominal pain Plan: Improved. Secondary to constipation. Abdominal x-ray performed and showed no bowel obstruction or ileus. Noted stool. Pt received 1 x dose of Mag citrate and did have several bowel movements Plan Paroxysmal atrial fibrillation: Continue with metoprolol and apixaban COPD: Not in exacerbation. HFpEF: Stable. GERD: Continue PPI. Chronic pain: Complicates care and recovery. Buprenorphine patch. 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 VTE prophylaxis: Not indicated patient is already apixaban Discharge home. Medications at Discharge Home Medications fluticasone fur. 100 mcg-umeclid 62.5 mcg-vilant 25 mcg inhalat.powder 1 inh inhalation DAILY 09/06/21 duloxetine 60 mg capsule,delayed release 60 mg PO DAILY 04/25/22 ondansetron HCl 4 mg tablet 4 mg PO QHS PRN nausea and vomiting 07/17/23 albuterol sulfate 90 mcg/actuation aerosol inhaler 1 inh inhalation Q8H PRN shortness of breath or wheezing 10/31/23 fluticasone propionate 50 mcg/actuation nasal spray,suspension 1 spray intranasal 10/31/23 metoprolol tartrate 50 mg tablet 50 mg PO BID 10/31/23 omeprazole 40 mg capsule,delayed release 40 mg PO BID 10/31/23 fexofenadine 180 mg tablet 180 mg PO Q24H 08/20/24 pregabalin 50 mg capsule (Lyrica) 50 mg PO BID 08/20/24 isosorbide mononitrate 30 mg tablet,extended release 24 hr 30 mg PO DAILY #90 TABLETS 08/30/24 apixaban 5 mg tablet (Eliquis) 5 mg PO BID 09/17/24 atorvastatin 40 mg tablet 40 mg PO QHS 09/17/24 budesonide 160 mcg-glycopyr 9 mcg-formot 4.8 mcg/actuation HFA inhaler (Breztri Aerosphere) 2 inh inhalation BID 09/17/24 buprenorphine 20 mcg/hour weekly transdermal patch 1 patch transdermal QWEEK 09/17/24 furosemide 40 mg tablet (Lasix) 40 mg PO BID #90 tabs 09/17/24 lactobacillus combination no.9 [Adult 50 Plus Probiotic] PO DAILY 09/17/24 sucralfate 1 gram tablet PO 09/17/24 spironolactone 25 mg tablet 25 mg PO QDAY #30 tabs 09/21/24 empagliflozin 10 mg tablet (Jardiance) 10 mg PO QAM #30 tabs 10/27/24 aspirin 81 mg tablet,delayed release 81 mg PO BREAKFAST #0 tabs 12/01/24 ticagrelor 90 mg tablet (Brilinta) 90 mg PO BID #60 tabs 12/01/24 Hospital Course Operations None Procedures Cardiac catheterization Summary of Care Provided Minutes Spent on Discharge: 32 Hospital Course: Patient underwent a left heart catheterization on the seventh where he had successful PCI to high- grade lesion involving the mid LAD. Additionally there is noted to be a sidebranch which is a diagonal branch was not intervened upon given the small size. Patient did have chest pain afterwards and was admitted to the intensive care unit and with patient was placed on a nitroglycerin drip. Eventually that was weaned off chest pain did overall improved. He did have abdominal pain did have a abdominal x-ray that did show constipation. Patient did receive magnesium citrate which she did have several bowel movements thereafter and his abdomen is feeling better. Patient does complain of being short of breath but he is taking short shallow breaths but his pulse ox is actually normal. Patient will be discharged home in stable condition with follow-up with cardiology. Weight / BMI Weight Weight: 93.7 kg Body Mass Index (BMI) 28.0 ABG / Lab / Microbiology Data 11/30/24 03:30 11/30/24 03:30 Laboratory: Laboratory Results - last 24 hr 11/30/24 03:30: Hemoglobin A1c 8.5 H 11/30/24 12:34: POC Glucose 155 H 11/30/24 16:31: POC Glucose 163 H Radiography Diagnostic Testing: Radiology Impression Echocardiogram 11/29/24 16:19 Interpretation Summary Normal LV size. Left ventricular systolic function is normal. Mild concentric left ventricular hypertrophy. The left (more content not included)...[facility]07-09-2025 Progress note [facility] Medical Records Department [address] [place] [address] Progress Note - Hospitalist 12/01/24708 MR#: [id number] Acct: [id number] Name: ANGI JACKSON Rep #:[id number] : 1950 74 From: Hira Mathias DO PCP: Dr. 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 Though patient is off oxygen and his pulse ox is in the high 90s. Abdomen is feeling better after numerous bowel movements. Objective Data Objective Data Vital Signs: Vital Signs Temp Pulse Resp BP Pulse Ox O2 Del Method O2 Flow Rate 36.6 C 64 15 132/73 H 100 Nasal Cannula 2 12/01/24 03:15 12/01/24 03:15 12/01/24 03:15 12/01/24 03:15 12/01/24 03:15 12/01/24 03:19 12/01/24 03:19 Oxygen Flow Rate (L/min) 2 Oxygen Delivery Method Nasal Cannula Weight: 93.7 kg Body Mass Index (BMI) 28.0 Intake & Output: Intake and Output for Last 24 Hours 11/29/24 11/30/24 12/01/24 23:59 23:59 23:59 Intake Total 231.55 / 237.55 939.75 / 939.75 Output Total 450 / 450 1200 / 1400 500 / 500 Balance -218.45 / -212.45 -260.25 / -460.25 -500 / -500 Lab / Micro Data 11/30/24 03:30 11/30/24 03:30 Labs: Laboratory Results - last 24 hr 11/30/24 03:30: Hemoglobin A1c 8.5 H 11/30/24 07:38: POC Glucose 168 H 11/30/24 12:34: POC Glucose 155 H 11/30/24 16:31: POC Glucose 163 H Radiography Diagnostic Testing: Radiology Impression Echocardiogram 11/29/24 16:19 Interpretation Summary Normal LV size. Left ventricular systolic function is normal. Mild concentric left ventricular hypertrophy. The left ventricular ejection fraction is 60 %. The right atrium is mildly enlarged. Stage 3 diastolic dysfunction. Ordering Physician: Margarita Levy Referring Physician: Jovany Brush Chi Performed By: Mamie Del Rosario, RDCS, RVT Abdomen X-Ray 11/30/24 12:56 IMPRESSION: Moderate amount of fecal material is seen in the colon. Reading Location: [place] [address] Physical Exam Const alert and no apparent distress Constitutional Narrative: Anxious. Short shallow breathing. Pulse ox remained 97 to 98% on room air during encounter. HEENT head/scalp atraumatic and moist oral mucous membranes Resp normal respiratory effort, no retractions, no use of accessory muscles and clearto auscultation bilaterally Cardio regular rate, regular rhythm, S1 normal heart sound and S2 normal heart sound GI normal to inspection, nondistended, normoactive bowel sounds, soft to palpation,non-tender and non-distended Extremity normal to inspection and full ROM Assessment & Plan Assessment/Plan (1) Stented coronary artery: PLAN: weaned off nitroglycerin Continue ticagrelor, aspirin, apixaban. To be continued for 1 month and then apixaban and clopidogrel (2) Abdominal pain: PLAN: Improved. Secondary to constipation. Abdominal x-ray performed and showed no bowel obstruction or ileus. Noted stool. Pt received 1 x dose of Mag citrate and did have several bowel movements PLAN: Plan Paroxysmal atrial fibrillation: Continue with metoprolol and apixaban COPD: Not in exacerbation. HFpEF: Stable. GERD: Continue PPI. Chronic pain: Complicates care and recovery. Buprenorphine patch. 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 VTE prophylaxis: Not indicated patient is already apixaban Discharge home. 07/02/17 955 Cosigner Signature (if applicable): CC: ~ Signed [facility]07-09-2025 Progress note Author Fco Aguilera [facility] Note Date/Time December 01, 2024 7:27a m [facility] Medical Records Department [address] [place] [address] Progress Note - Cardiology 12/01/24724 MR#: [id number] Acct: [id number] Name: ANGI JACKSON Rep #:[id number] : 1950 74 From: Fco Aguilera MD PCP: Dr. Jovany Brush MD Status:ADM I N Location: ICU ICU-1 Subjective Subjective Patient seen and evaluated. Doing well. No cardiac complaints. Objective Data Vital Signs: Vital Signs Temp Pulse Resp BP Pulse Ox O2 Del Method O2 Flow Rate 97.8 F 63 18 132/73 H 97 Room Air 2 12/01/24 03:15 12/01/24 07:14 12/01/24 07:14 12/01/24 03:15 12/01/24 07:14 12/01/24 07:14 12/01/24 03:19 Oxygen Flow Rate (L/min) 2 Oxygen Delivery Method Room Air Weight: 206 lb 9.17 oz Body Mass Index (BMI) 28.0 Intake & Output: Intake and Output for Last 24 Hours 11/29/24 11/30/24 12/01/24 23:59 23:59 23:59 Intake Total 231.55 / 237.55 939.75 / 939.75 Output Total 450 / 450 1200 / 1400 500 / 500 Balance -218.45 / -212.45 -260.25 / -460.25 -500 / -500 Lab / Micro Data 11/30/24 03:30 11/30/24 03:30 Labs: Laboratory Results - last 24 hr 11/30/24 03:30: Hemoglobin A1c 8.5 H 11/30/24 07:38: POC Glucose 168 H 11/30/24 12:34: POC Glucose 155 H 11/30/24 16:31: POC Glucose 163 H Cardiology Labs/Tests 11/30/24 03:30: Hemoglobin A1c 8.5 H Rhythm: EKG: ECHO: Stress Test: Cardiac Cath: PCI: CT Surgery: Holter monitor: EPS: PPM: CXR: Chest CT Scan: Radiography Diagnostic Testing: Radiology Impression Echocardiogram 11/29/24 16:19 Interpretation Summary Normal LV size. Left ventricular systolic function is normal. Mild concentric left ventricular hypertrophy. The left ventricular ejection fraction is 60 %. The right atrium is mildly enlarged. Stage 3 diastolic dysfunction. Ordering Physician: Margarita Levy Referring Physician: Jovany Brush Chi Performed By: Mamie Del Rosario, ROLLY, RVT Abdomen X-Ray 11/30/24 12:56 IMPRESSION: Moderate amount of fecal material is seen in the colon. Reading Location: [place] [address] Physical Exam Const alert Constitutional Narrative: dysarthria. HEENT head/scalp atraumatic and moist oral mucous membranes HEENT Narrative: Mild facial droop Resp normal respiratory effort, no retractions, no use of accessory muscles and clearto auscultation bilaterally Cardio S1 normal heart sound and S2 normal heart sound Rhythm: abnormal rhythm irregularly irregular GI normal to inspection, nondistended, normoactive bowel sounds, soft to palpation,non-tender and non-distended Extremity normal to inspection and full ROM Neuro Sensorium / Orientation: awake and alert Assessment & Plan Assessment/Plan (1) CAD (coronary artery disease): PLAN: He has a history of coronary disease he underwent cardiac catheterization yesterday which demonstrated high-grade stenosis noted in the mid left anterior descending artery for which he underwent angioplasty and stenting. There was a diagonal branch which got pinched up he did develop some chest discomfort but isfree of chest discomfort this morning. Plan is to put him on oral nitrates and see how he does. He will be on aspirin, Brilinta, and Eliquis for 1 month and then Eliquis and clopidogrel (2) Essential (primary) hypertension: PLAN: His blood pressure is under good control at this time I would not recommend that we make any major changes. (3) Longstanding persistent atrial fibrillation: PLAN: He does have longstanding persistent atrial fibrillation his ventricular response rate is controlled he will remain on the beta-zuly. Eliquis can be resumed this morning. (4) Hyperlipidemia: QUALIFIERS: Hyperlipidemia type: mixed hyperlipidemia Qualified Code(s): E78.2 - Mixed hyperlipidemia PLAN: He does have a history of hyperlipidemia and will remain on high intensitystatin. PLAN: Plan From the cardiac standpoint he can be discharged for outpatient follow-up. 12/01/24726 <Electronically signed by Fco Aguilera MD> Cosigner Signature (if applicable): CC: ~ Signed [facility] Work Phone: [phone] 281-866307-09-2025 Progress note [facility] Medical Records Department [address] [place] [address] Progress Note - Cardiology 12/01/24724 MR#: [id number] Acct: [id number] Name: ANGI JACKSON Rep #:[id number] : 1950 74 From: Fco Aguilera MD PCP: Dr. Jovany Brush MD Status:ADM I N Location: ICU ICU-1 Subjective Subjective Patient seen and evaluated. Doing well. No cardiac complaints. Objective Data Vital Signs: Vital Signs Temp Pulse Resp BP Pulse Ox O2 Del Method O2 Flow Rate 97.8 F 63 18 132/73 H 97 Room Air 2 12/01/24 03:15 12/01/24 07:14 12/01/24 07:14 12/01/24 03:15 12/01/24 07:14 12/01/24 07:14 12/01/24 03:19 Oxygen Flow Rate (L/min) 2 Oxygen Delivery Method Room Air Weight: 206 lb 9.17 oz Body Mass Index (BMI) 28.0 Intake & Output: Intake and Output for Last 24 Hours 11/29/24 11/30/24 12/01/24 23:59 23:59 23:59 Intake Total 231.55 / 237.55 939.75 / 939.75 Output Total 450 / 450 1200 / 1400 500 / 500 Balance -218.45 / -212.45 -260.25 / -460.25 -500 / -500 Lab / Micro Data 11/30/24 03:30 11/30/24 03:30 Labs: Laboratory Results - last 24 hr 11/30/24 03:30: Hemoglobin A1c 8.5 H 11/30/24 07:38: POC Glucose 168 H 11/30/24 12:34: POC Glucose 155 H 11/30/24 16:31: POC Glucose 163 H Cardiology Labs/Tests 11/30/24 03:30: Hemoglobin A1c 8.5 H Rhythm: EKG: ECHO: Stress Test: Cardiac Cath: PCI: CT Surgery: Holter monitor: EPS: PPM: CXR: Chest CT Scan: Radiography Diagnostic Testing: Radiology Impression Echocardiogram 11/29/24 16:19 Interpretation Summary Normal LV size. Left ventricular systolic function is normal. Mild concentric left ventricular hypertrophy. The left ventricular ejection fraction is 60 %. The right atrium is mildly enlarged. Stage 3 diastolic dysfunction. Ordering Physician: Margarita Levy Referring Physician: Jovany Brush Chi Performed By: Mamie Del Rosario, ROLLY, RVT Abdomen X-Ray 11/30/24 12:56 IMPRESSION: Moderate amount of fecal material is seen in the colon. Reading Location: [place] [address] Physical Exam Const alert Constitutional Narrative: dysarthria. HEENT head/scalp atraumatic and moist oral mucous membranes HEENT Narrative: Mild facial droop Resp normal respiratory effort, no retractions, no use of accessory muscles and clearto auscultation bilaterally Cardio S1 normal heart sound and S2 normal heart sound Rhythm: abnormal rhythm irregularly irregular GI normal to inspection, nondistended, normoactive bowel sounds, soft to palpation,non-tender and non-distended Extremity normal to inspection and full ROM Neuro Sensorium / Orientation: awake and alert Assessment & Plan Assessment/Plan (1) CAD (coronary artery disease): PLAN: He has a history of coronary disease he underwent cardiac catheterization yesterday which demonstrated high-grade stenosis noted in the mid left anterior descending artery for which he underwent angioplasty and stenting. There was a diagonal branch which got pinched up he did develop some chest discomfort but isfree of chest discomfort this morning. Plan is to put him on oral nitrates and see how he does. He will be on aspirin, Brilinta, and Eliquis for 1 month and then Eliquis and clopidogrel (2) Essential (primary) hypertension: PLAN: His blood pressure is under good control at this time I would not recommend that we make any major changes. (3) Longstanding persistent atrial fibrillation: PLAN: He does have longstanding persistent atrial fibrillation his ventricular response rate is controlled he will remain on the beta-zuly. Eliquis can be resumed this morning. (4) Hyperlipidemia: QUALIFIERS: Hyperlipidemia type: mixed hyperlipidemia Qualified Code(s): E78.2 - Mixed hyperlipidemia PLAN: He does have a history of hyperlipidemia and will remain on high intensitystatin. PLAN: Plan From the cardiac standpoint he can be discharged for outpatient follow-up. 12/01/24726 Cosigner Signature (if applicable): CC: ~ Signed [facility]07-08-2025 Progress note Author Hira Mathias [facility] Note Date/Time November 30, 2024 2:13p m [facility] Medical Records Department [address] [place] [address] Progress Note - Hospitalist 11/30/24 1408 MR#: [id number] Acct: [id number] Name: ANGI JACKSON Rep #:[id number] : 1950 74 From: Hira Mathias DO PCP: Dr. Jovany Brush MD Status:ADM I N [facility] Reason [facility] Visit Reason for Visit: Diagnoses Mixed hyperlipidemia (11/29/24) Essential (primary) hypertension (11/29/24) Atherosclerotic heart disease of [place] coronary artery without angina pectoris (11/29/24) Longstanding persistent atrial fibrillation (11/29/24) Acute diastolic (congestive) heart failure (11/29/24) Other forms of dyspnea (11/29/24) Encounter for therapeutic drug level monitoring (11/29/24) senior living (current) use of anticoagulants (11/29/24) Subjective Subjective Has been complaining of abdominal pain and nausea. Objective Data Objective Data Vital Signs: Vital Signs Temp Pulse Resp BP Pulse Ox O2 Del Method O2 Flow Rate 36.5 C L 67 17 128/78 H 100 Room Air 100 11/30/24 10:41 11/30/24 12:02 11/30/24 12:02 11/30/24 12:00 11/30/24 12:02 11/30/24 12:49 11/30/24 12:49 Oxygen Flow Rate (L/min) 100 Oxygen Delivery Method Room Air Weight: 96.1 kg Body Mass Index (BMI) 28.7 Intake & Output: Intake and Output for Last 24 Hours 11/28/24 11/29/24 11/30/24 23:59 23:59 23:59 Intake Total 231.55 / 237.55 539.75 / 539.75 Output Total 450 / 450 700 / 700 Balance -218.45 / -212.45 -160.25 / -160.25 Lab / Micro Data 11/30/24 03:30 11/30/24 03:30 Labs: Laboratory Results - last 24 hr 11/29/24 16:00: WBC 13.7 H, RBC 5.87, Hgb 12.9 L, Hct 42.7, MCV 72.7 L, MCH 22.0L, MCHC 30.2 L, RDW Std Deviation 51.9 H, RDW Coeff of Moris 20.8 H, Plt Count 388, MPV 8.9, NT pro BNP II 531 11/29/24 16:18: POC Glucose 168 H 11/30/24 03:30: WBC 16.0 H, RBC 5.41, Hgb 11.9 L, Hct 39.0 L, MCV 72.1 L, MCH 22.0 L, MCHC 30.5 L, RDW Std Deviation 51.1 H, RDW Coeff of Moris 20.3 H, Plt Count 367, MPV 8.8, Immature Gran % (Auto) 0.300, Neut % (Auto) 82.9 H, Lymph % (Auto) 8.7 L, [place] % (Auto) 7.2, Eos % (Auto) 0.4, Baso % (Auto) 0.5, Absolute Neuts (auto) 13.3 H, Absolute Lymphs (auto) 1.40, Nucleated RBC % 0, Differential Comment SCANNED, Platelet Estimate ADEQUATE, Anisocytosis 2+, Tear Drop Cells 1+, Ovalocytes 1+, Sodium 135, Potassium 4.8, Chloride 102, Carbon Dioxide 22.3, Anion Gap 11, BUN 19, Creatinine 0.91, Estim Creat Clear Calc 84.33, Est GFR (MDRD) Non-Af 88, BUN/Creatinine Ratio 21.3 H, Glucose 172 H, Hemoglobin A1c 8.5 H, Calcium 9.2, Phosphorus 3.7, Magnesium 2.2, Total Bilirubin1.50 H, AST 34, ALT 28, Alkaline Phosphatase 154 H, Total Protein 6.8, Albumin 3.7, Globulin 3.1, Albumin/Globulin Ratio 1.2 11/30/24 07:38: POC Glucose 168 H 11/30/24 12:34: POC Glucose 155 H Radiography Diagnostic Testing: Radiology Impression Echocardiogram 11/29/24 16:19 Interpretation Summary Normal LV size. Left ventricular systolic function is normal. Mild concentric left ventricular hypertrophy. The left ventricular ejection fraction is 60 %. The right atrium is mildly enlarged. Stage 3 diastolic dysfunction. Ordering Physician: Margarita Levy Referring Physician: Jovany Brush Chi Performed By: Mamie Del Rosario, RDCS, RVT Chest X-Ray 11/29/24 16:30 IMPRESSION: Mild right hemidiaphragm elevation is again present. Lungs appear clear of acute disease. No pleural effusion or pneumothorax is noted. The cardiomediastinal silhouette is stable, without evident of cardiomegaly. No evidence of acute cardiopulmonary disease. Reading Location: [address] Abdomen X-Ray 11/30/24 12:56 IMPRESSION: Moderate amount of fecal material is seen in the colon. Reading Location: [facility] Physical Exam Const alert Constitutional Narrative: dysarthria. HEENT head/scalp atraumatic and moist oral mucous membranes HEENT Narrative: right facial droop Resp normal respiratory effort, no retractions, no use of accessory muscles and clearto auscultation bilaterally Cardio regular rate, regular rhythm, S1 normal heart sound and S2 normal heart sound GI normal to inspection, nondistended, normoactive bowel sounds, soft to palpation,non-tender and non-distended Extremity normal to inspection and full ROM Neuro Sensorium / Orientation: awake and alert Assessment & Plan Assessment/Plan (1) Stented coronary artery: PLAN: weaned off nitroglycerin You ticagrelor, aspirin apixaban. To be continued for 1 month and then apixaban (2) Abdominal pain: PLAN: Abdominal x-ray performed and showed no bowel obstruction or ileus. Notedstool. Unclear if patient is constipated we will give him museum citrate to seeif that would help. PLAN: Plan Paroxysmal atrial fibrillation: Continue with metoprolol and apixaban COPD: Not in exacerbation. HFpEF: Stable. GERD: Continue PPI. Chronic pain: Complicates care and recovery. Buprenorphine patch. VTE prophylaxis: Not indicated patient is already apixaban Charges/Coding Visit Charges Inpatient E&M: 31359 Subs Hosp L2 11/30/24 1413 <Electronically signed by Hira Mathias DO> Cosigner Signature (if applicable): CC: ~ Signed [facility] Work Phone: [phone]) 863-555207-08-2025 Progress note [facility] Medical Records Department [address] [place] [address] Progress Note - Hospitalist 11/30/24 1408 MR#: [id number] Acct: [id number] Name: ANGI JACKSON Rep #:[id number] : 1950 74 From: Hira Mathias DO PCP: Dr. Jovany Brush MD Status:ADM I N Location: ICU ICU- Reason for Visit Reason for Visit: Diagnoses Mixed hyperlipidemia (11/29/24) Essential (primary) hypertension (11/29/24) Atherosclerotic heart disease of [place] coronary artery without angina pectoris (11/29/24) Longstanding persistent atrial fibrillation (11/29/24) Acute diastolic (congestive) heart failure (11/29/24) Other forms of dyspnea (11/29/24) Encounter for therapeutic drug level monitoring (11/29/24) senior living (current) use of anticoagulants (11/29/24) Subjective Subjective Has been complaining of abdominal pain and nausea. Objective Data Objective Data Vital Signs: Vital Signs Temp Pulse Resp BP Pulse Ox O2 Del Method O2 Flow Rate 36.5 C L 67 17 128/78 H 100 Room Air 100 11/30/24 10:41 11/30/24 12:02 11/30/24 12:02 11/30/24 12:00 11/30/24 12:02 11/30/24 12:49 11/30/24 12:49 Oxygen Flow Rate (L/min) 100 Oxygen Delivery Method Room Air Weight: 96.1 kg Body Mass Index (BMI) 28.7 Intake & Output: Intake and Output for Last 24 Hours 11/28/24 11/29/24 11/30/24 23:59 23:59 23:59 Intake Total 231.55 / 237.55 539.75 / 539.75 Output Total 450 / 450 700 / 700 Balance -218.45 / -212.45 -160.25 / -160.25 Lab / Micro Data 11/30/24 03:30 11/30/24 03:30 Labs: Laboratory Results - last 24 hr 11/29/24 16:00: WBC 13.7 H, RBC 5.87, Hgb 12.9 L, Hct 42.7, MCV 72.7 L, MCH 22.0L, MCHC 30.2 L, RDWStd Deviation 51.9 H, RDW Coeff of Moris 20.8 H, Plt Count 388, MPV 8.9, NT pro BNP II 531 11/29/24 16:18: POC Glucose 168 H 11/30/24 03:30: WBC 16.0 H, RBC 5.41, Hgb 11.9 L, Hct 39.0 L, MCV 72.1 L, MCH 22.0 L, MCHC 30.5 L, RDW Std Deviation 51.1 H, RDW Coeff of Moris 20.3 H, Plt Count 367, MPV 8.8, Immature Gran % (Auto) 0.300, Neut % (Auto) 82.9 H, Lymph % (Auto) 8.7 L, [place] % (Auto) 7.2, Eos % (Auto) 0.4, Baso % (Auto) 0.5, Absolute Neuts (auto) 13.3 H, Absolute Lymphs (auto) 1.40, Nucleated RBC % 0, Differential Comment SCANNED, Platelet Estimate ADEQUATE, Anisocytosis 2+, Tear Drop Cells 1+, Ovalocytes 1+, Sodium 135, Potassium 4.8, Chloride 102, Carbon Dioxide 22.3, Anion Gap 11, BUN 19, Creatinine 0.91, Estim Creat Clear Calc 84.33, Est GFR (MDRD) Non-Af 88, BUN/Creatinine Ratio 21.3 H, Glucose 172 H, Hemoglobin A1c 8.5 H, Calcium 9.2, Phosphorus 3.7, Magnesium 2.2, Total Bilirubin1.50 H, AST 34, ALT 28, Alkaline Phosphatase 154 H, Total Protein 6.8, Albumin 3.7, Globulin 3.1, Albumin/Globulin Ratio 1.2 11/30/24 07:38: POC Glucose 168 H 11/30/24 12:34: POC Glucose 155 H Radiography Diagnostic Testing: Radiology Impression Echocardiogram 11/29/24 16:19 Interpretation Summary Normal LV size. Left ventricular systolic function is normal. Mild concentric left ventricular hypertrophy. The left ventricular ejection fraction is 60 %. The right atrium is mildly enlarged. Stage 3 diastolic dysfunction. Ordering Physician: Margarita Levy Referring Physician: Jovany Brush Chi Performed By: Mamie Del Rosario, ROLLY, RVT Chest X-Ray 11/29/24 16:30 IMPRESSION: Mild right hemidiaphragm elevation is again present. Lungs appear clear of acute disease. No pleural effusion or pneumothorax is noted. The cardiomediastinal silhouette is stable, without evident of cardiomegaly. No evidence of acute cardiopulmonary disease. Reading Location: [address] Abdomen X-Ray 11/30/24 12:56 IMPRESSION: Moderate amount of fecal material is seen in the colon. [facility] Physical Exam Const alert Constitutional Narrative: dysarthria. HEENT head/scalp atraumatic and moist oral mucous membranes HEENT Narrative: right facial droop Resp normal respiratory effort, no retractions, no use of accessory muscles and clearto auscultation bilaterally Cardio regular rate, regular rhythm, S1 normal heart sound and S2 normal heart sound GI normal to inspection, nondistended, normoactive bowel sounds, soft to palpation,non-tender and non-distended Extremity normal to inspection and full ROM Neuro Sensorium / Orientation: awake and alert Assessment & Plan Assessment/Plan (1) Stented coronary artery: PLAN: weaned off nitroglycerin You ticagrelor, aspirin apixaban. To be continued for 1 month and then apixaban (2) Abdominal pain: PLAN: Abdominal x-ray performed and showed no bowel obstruction or ileus. Notedstool. Unclear if patient is constipated we will give him museum citrate to seeif that would help. PLAN: Plan Paroxysmal atrial fibrillation: Continue with metoprolol and apixaban COPD: Not in exacerbation. HFpEF: Stable. GERD: Continue PPI. Chronic pain: Complicates care and recovery. Buprenorphine patch. VTE prophylaxis: Not indicated patient is already apixaban Charges/Coding Visit Charges Inpatient E&M: 32450 Subs Hosp L2 11/30/24 1413 Cosigner Signature (if applicable): CC: ~ Signed [facility]07-08-2025 Radiology Diagnostic study note [facility] Imaging Services [address] [place], [place] [id number] Abd Decub and/or Erect(Portabl MR#: [id number] Acct: [id number] Name: ANGI JACKSON Rep #: [id number] : 1950 M 74 From: Smith Austin MD PCP: Dr. Jovany Brush MD Status: ADM I N Study:Abd Decub and/or Erect(Portabl Date of Exam: 11/30/24 Exam# [id number] Ordering Dr: Hira Mathias DO PROCEDURE: ABD DECUB AND/OR ERECT(PORTABL 11/30/2024 REASON FOR EXAM: ABD PAIN/NAUSEA TECHNIQUE: ABD DECUB AND/OR ERECT(PORTABL COMPARISON: None FINDINGS: Bowel gas: Moderate constipation identified with fecal material distributed throughout the colon. No evidence of bowel obstruction. Calcifications: No suspicious calcifications. Bones: Degenerative changes of sacroiliac joints. Status post bilateral total hip replacement. Other: Status post cholecystectomy. RAD/Abd Decub and/or Erect(Portabl IMPRESSION: Moderate amount of fecal material is seen in the colon. Reading Location: [facility] CC: Dr. Hira Mathias DO; Dr. Jovany Brush MD ~ Infantry Officer: Signed [facility]07-08-2025 Progress note Author Fco Willy [facility] Note Date/Time November 30, 2024 7:07a m [facility] Medical Records Department [address] [place] [address] Progress Note - Cardiology 11/30/24 0701 MR#: [id number] Acct: [id number] Name: ANGI JACKSON Rep #:[id number] : 1950 74 From: Fco Aguilera MD PCP: Dr. Jovany Brush MD Status:REG S DC Location: ICU ICU05-1 Subjective Subjective Patient seen and evaluated. Doing better today. Denies chest pain. Objective Data Vital Signs: Vital Signs Temp Pulse Resp BP Pulse Ox O2 Del Method O2 Flow Rate 97.2 F L 64 17 114/64 97 Room Air 2 11/30/24 04:00 11/30/24 06:00 11/30/24 06:00 11/30/24 06:00 11/30/24 06:00 11/30/24 06:00 11/30/24 04:00 Oxygen Flow Rate (L/min) 2 Oxygen Delivery Method Room Air Weight: 211 lb 13.828 oz Body Mass Index (BMI) 28.7 Intake & Output: Intake and Output for Last 24 Hours 11/28/24 11/29/24 11/30/24 23:59 23:59 23:59 Intake Total 231.55 / 237.55 235.55 / 235.55 Output Total 450 / 450 Balance -218.45 / -212.45 235.55 / 235.55 Lab / Micro Data 11/30/24 03:30 11/30/24 03:30 Labs: Laboratory Results - last 24 hr 11/29/24 09:23: Sodium 139, Potassium 4.7, Chloride 102, Carbon Dioxide 26.1, Anion Gap 10, BUN 21 H, Creatinine 0.96, Estim Creat Clear Calc 80.13, Est GFR (MDRD) Non-Af 83, BUN/Creatinine Ratio 21.7 H, Glucose 155 H, Calcium 9.4 11/29/24 10:16: Activated Clotting Time 325 H 11/29/24 16:00: WBC 13.7 H, RBC 5.87, Hgb 12.9 L, Hct 42.7, MCV 72.7 L, MCH 22.0L, MCHC 30.2 L, RDW Std Deviation 51.9 H, RDW Coeff of Moris 20.8 H, Plt Count 388, MPV 8.9, NT pro BNP II 531 11/29/24 16:18: POC Glucose 168 H 11/30/24 03:30: WBC 16.0 H, RBC 5.41, Hgb 11.9 L, Hct 39.0 L, MCV 72.1 L, MCH 22.0 L, MCHC 30.5 L, RDW Std Deviation 51.1 H, RDW Coeff of Moris 20.3 H, Plt Count 367, MPV 8.8, Immature Gran % (Auto) 0.300, Neut % (Auto) 82.9 H, Lymph % (Auto) 8.7 L, [place] % (Auto) 7.2, Eos % (Auto) 0.4, Baso % (Auto) 0.5, Absolute Neuts (auto) 13.3 H, Absolute Lymphs (auto) 1.40, Nucleated RBC % 0, Differential Comment SCANNED, Platelet Estimate ADEQUATE, Anisocytosis 2+, Tear Drop Cells 1+, Ovalocytes 1+, Sodium 135, Potassium 4.8, Chloride 102, Carbon Dioxide 22.3, Anion Gap 11, BUN 19, Creatinine 0.91, Estim Creat Clear Calc 84.33, Est GFR (MDRD) Non-Af 88, BUN/Creatinine Ratio 21.3 H, Glucose 172 H, Calcium 9.2, Phosphorus 3.7, Magnesium 2.2, Total Bilirubin 1.50 H, AST 34, ALT 28, Alkaline Phosphatase 154 H, Total Protein 6.8, Albumin 3.7, Globulin 3.1, Albumin/Globulin Ratio 1.2 Cardiology Labs/Tests 11/29/24 09:23: Sodium 139, Potassium 4.7, Chloride 102, Carbon Dioxide 26.1, Anion Gap 10, BUN 21 H, Creatinine 0.96, Est GFR (MDRD) Non-Af 83, BUN/Creatinine Ratio 21.7 H, Glucose 155 H, Calcium 9.4 11/29/24 16:00: WBC 13.7 H, RBC 5.87, Hgb 12.9 L, Hct 42.7, MCV 72.7 L, MCH 22.0L, MCHC 30.2 L, Plt Count 388, MPV 8.9 11/30/24 03:30: WBC 16.0 H, RBC 5.41, Hgb 11.9 L, Hct 39.0 L, MCV 72.1 L, MCH 22.0 L, MCHC 30.5 L, Plt Count 367, MPV 8.8, Immature Gran % (Auto) 0.300, Neut % (Auto) 82.9 H, Lymph % (Auto) 8.7 L, [place] % (Auto) 7.2, Eos % (Auto) 0.4, Baso% (Auto) 0.5, Absolute Neuts (auto) 13.3 H, Nucleated RBC % 0, Sodium 135, Potassium 4.8, Chloride 102, Carbon Dioxide 22.3, Anion Gap 11, BUN 19, Creatinine 0.91, Est GFR (MDRD) Non-Af 88, BUN/Creatinine Ratio 21.3 H, Glucose 172 H, Calcium 9.2, Phosphorus 3.7, Magnesium 2.2, Total Bilirubin 1.50 H Rhythm: EKG: ECHO: Stress Test: Cardiac Cath: PCI: CT Surgery: Holter monitor: EPS: PPM: CXR: Chest CT Scan: Radiography Diagnostic Testing: Radiology Impression Chest X-Ray 11/29/24 16:30 IMPRESSION: Mild right hemidiaphragm elevation is again present. Lungs appear clear of acute disease. No pleural effusion or pneumothorax is noted. The cardiomediastinal silhouette is stable, without evident of cardiomegaly. No evidence of acute cardiopulmonary disease. Reading Location: [address] Physical Exam Const alert, oriented x3 and no apparent distress General Appearance: cooperative HEENT hearing grossly normal bilaterally Head and Scalp: atraumatic Eyes EOMs intact bilaterally Neck General: normal visual inspection Chest inspection of chest normal and palpation of chest normal Resp normal respiratory effort Auscultation: clear to auscultation bilaterally Cardio regular rate, regular rhythm, S1 normal heart sound and S2 normal heart sound Jugular Venous Distention: JVD GI normal to inspection, nondistended, normoactive bowel sounds Extremity normal capillary refill and no pedal edema Peripheral Pulses: Yes pulses 2+ throughout and femoral pulses present Skin no rashes or lesions noted Neuro oriented x3 and CN's II-XII intact bilaterally Psych Appearance: grossly normal and appropriate Assessment & Plan Assessment/Plan (1) CAD (coronary artery disease): PLAN: He has a history of coronary disease he underwent cardiac catheterization yesterday which demonstrated high-grade stenosis noted in the mid left anterior descending artery for which he underwent angioplasty and stenting. There was a diagonal branch which got pinched up he did develop some chest discomfort but isfree of chest discomfort this morning. Plan is to put him on oral nitrates and see how he does for a few hours discharge and for outpatient management. He will be on aspirin, Brilinta, and Eliquis for 1 month and then Eliquis and clopidogrel (2) Essential (primary) hypertension: PLAN: His blood pressure is under good control at this time I would not recommend that we make any major changes. (3) Longstanding persistent atrial fibrillation: PLAN: He does have longstanding persistent atrial fibrillation his ventricular response rate is controlled he will remain on the beta-zuly. (4) Hyperlipidemia: QUALIFIERS: Hyperlipidemia type: mixed hyperlipidemia Qualified Code(s): E78.2 - Mixed hyperlipidemia PLAN: He does have a history of hyperlipidemia and will remain on high intensitystatin. 11/30/24 0707 <Electronically signed by Fco Aguilera MD> Cosigner Signature (if applicable): CC: ~ Signed [facility] Work Phone: 1([phone] 719-183707-08-2025 Progress note [facility] Medical Records Department [address] [place] [address] Progress Note - Cardiology 11/30/24 0701 MR#: [id number] Acct: [id number] Name: ANGI JACKSON Rep #:[id number] : 1950 74 From: Fco Aguilera MD PCP: Dr. Jovany Brush MD Status:REG S DC Location: ICU ICU05- Subjective Subjective Patient seen and evaluated. Doing better today. Denies chest pain. Objective Data Vital Signs: Vital Signs Temp Pulse Resp BP Pulse Ox O2 Del Method O2 Flow Rate 97.2 F L 64 17 114/64 97 Room Air 2 11/30/24 04:00 11/30/24 06:00 11/30/24 06:00 11/30/24 06:00 11/30/24 06:00 11/30/24 06:00 11/30/24 04:00 Oxygen Flow Rate (L/min) 2 Oxygen Delivery Method Room Air Weight: 211 lb 13.828 oz Body Mass Index (BMI) 28.7 Intake & Output: Intake and Output for Last 24 Hours 11/28/24 11/29/24 11/30/24 23:59 23:59 23:59 Intake Total 231.55 / 237.55 235.55 / 235.55 Output Total 450 / 450 Balance -218.45 / -212.45 235.55 / 235.55 Lab / Micro Data 11/30/24 03:30 11/30/24 03:30 Labs: Laboratory Results - last 24 hr 11/29/24 09:23: Sodium 139, Potassium 4.7, Chloride 102, Carbon Dioxide 26.1, Anion Gap 10, BUN 21 H, Creatinine 0.96, Estim Creat Clear Calc 80.13, Est GFR (MDRD) Non-Af 83, BUN/Creatinine Ratio 21.7 H, Glucose 155 H, Calcium 9.4 11/29/24 10:16: Activated Clotting Time 325 H 11/29/24 16:00: WBC 13.7 H, RBC 5.87, Hgb 12.9 L, Hct 42.7, MCV 72.7 L, MCH 22.0L, MCHC 30.2 L, RDWStd Deviation 51.9 H, RDW Coeff of Moris 20.8 H, Plt Count 388, MPV 8.9, NT pro BNP II 531 11/29/24 16:18: POC Glucose 168 H 11/30/24 03:30: WBC 16.0 H, RBC 5.41, Hgb 11.9 L, Hct 39.0 L, MCV 72.1 L, MCH 22.0 L, MCHC 30.5 L, RDW Std Deviation 51.1 H, RDW Coeff of Moris 20.3 H, Plt Count 367, MPV 8.8, Immature Gran % (Auto) 0.300, Neut % (Auto) 82.9 H, Lymph % (Auto) 8.7 L, [place] % (Auto) 7.2, Eos % (Auto) 0.4, Baso % (Auto) 0.5, Absolute Neuts (auto) 13.3 H, Absolute Lymphs (auto) 1.40, Nucleated RBC % 0, Differential Comment SCANNED, Platelet Estimate ADEQUATE, Anisocytosis 2+, Tear Drop Cells 1+, Ovalocytes 1+, Sodium 135, Potassium 4.8, Chloride 102, Carbon Dioxide 22.3, Anion Gap 11, BUN 19, Creatinine 0.91, Estim Creat Clear Calc 84.33, Est GFR (MDRD) Non-Af 88, BUN/Creatinine Ratio 21.3 H, Glucose 172 H, Calcium 9.2, Phosphorus 3.7, Magnesium 2.2, Total Bilirubin 1.50 H, AST 34, ALT 28, Alkaline Phosphatase 154 H, Total Protein 6.8, Albumin 3.7, Globulin 3.1, Albumin/Globulin Ratio 1.2 Cardiology Labs/Tests 11/29/24 09:23: Sodium 139, Potassium 4.7, Chloride 102, Carbon Dioxide 26.1, Anion Gap 10, BUN 21 H, Creatinine 0.96, Est GFR (MDRD) Non-Af 83, BUN/Creatinine Ratio 21.7 H, Glucose 155 H, Calcium 9.4 11/29/24 16:00: WBC 13.7 H, RBC 5.87, Hgb 12.9 L, Hct 42.7, MCV 72.7 L, MCH 22.0L, MCHC 30.2 L, PltCount 388, MPV 8.9 11/30/24 03:30: WBC 16.0 H, RBC 5.41, Hgb 11.9 L, Hct 39.0 L, MCV 72.1 L, MCH 22.0 L, MCHC 30.5 L, Plt Count 367, MPV 8.8, Immature Gran % (Auto) 0.300, Neut % (Auto) 82.9 H, Lymph % (Auto) 8.7 L, [place] % (Auto) 7.2, Eos % (Auto) 0.4, Baso% (Auto) 0.5, Absolute Neuts (auto) 13.3 H, Nucleated RBC % 0, Sodium 135, Potassium 4.8, Chloride 102, Carbon Dioxide 22.3, Anion Gap 11, BUN 19, Creatinine 0.91, Est GFR (MDRD) Non-Af 88, BUN/Creatinine Ratio 21.3 H, Glucose 172 H, Calcium 9.2, Phosphorus 3.7, Magnesium 2.2, Total Bilirubin 1.50 H Rhythm: EKG: ECHO: Stress Test: Cardiac Cath: PCI: CT Surgery: Holter monitor: EPS: PPM: CXR: Chest CT Scan: Radiography Diagnostic Testing: Radiology Impression Chest X-Ray 11/29/24 16:30 IMPRESSION: Mild right hemidiaphragm elevation is again present. Lungs appear clear of acute disease. No pleural effusion or pneumothorax is noted. The cardiomediastinal silhouette is stable, without evident of cardiomegaly. No evidence of acute cardiopulmonary disease. Reading Location: [address] Physical Exam Const alert, oriented x3 and no apparent distress General Appearance: cooperative HEENT hearing grossly normal bilaterally Head and Scalp: atraumatic Eyes EOMs intact bilaterally Neck General: normal visual inspection Chest inspection of chest normal and palpation of chest normal Resp normal respiratory effort Auscultation: clear to auscultation bilaterally Cardio regular rate, regular rhythm, S1 normal heart sound and S2 normal heart sound Jugular Venous Distention: JVD GI normal to inspection, nondistended, normoactive bowel sounds Extremity normal capillary refill and no pedal edema Peripheral Pulses: Yes pulses 2+ throughout and femoral pulses present Skin no rashes or lesions noted Neuro oriented x3 and CN's II-XII intact bilaterally Psych Appearance: grossly normal and appropriate Assessment & Plan Assessment/Plan (1) CAD (coronary artery disease): PLAN: He has a history of coronary disease he underwent cardiac catheterization yesterday which demonstrated high-grade stenosis noted in the mid left anterior descending artery for which he underwent angioplasty and stenting. There was a diagonal branch which got pinched up he did develop some chest discomfort but isfree of chest discomfort this morning. Plan is to put him on oral nitrates and see how he does for a few hours discharge and for outpatient management. He will be on aspirin, Brilinta, and Eliquis for 1 month and then Eliquis and clopidogrel (2) Essential (primary) hypertension: PLAN: His blood pressure is under good control at this time I would not recommend that we make any major changes. (3) Longstanding persistent atrial fibrillation: PLAN: He does have longstanding persistent atrial fibrillation his ventricular response rate is controlled he will remain on the beta-zuly. (4) Hyperlipidemia: QUALIFIERS: Hyperlipidemia type: mixed hyperlipidemia Qualified Code(s): E78.2 - Mixed hyperlipidemia PLAN: He does have a history of hyperlipidemia and will remain on high intensitystatin. 11/30/24 0707 Cosigner Signature (if applicable): CC: ~ Signed [facility]07-07-2025 History and physical note Author Margarita Levy [facility] Note Date/Time November 29, 2024 4:19p m [facility] Medical Records Department [address] [place] [address] H&P Exam - Hospitalist 11/29/24 1523 MR#: [id number] Acct: [id number] Name: ANGI JACKSON Rep #:[id number] : 1950 74 From: Margarita Levy MD PCP: Dr. Jovany Brush MD Status:REG S DC Location: ICU ICU05-1 HPI - General General Date of Admission: 11/29/24 Date of Service: 11/29/24 Chief Complaint: Elective heart cath status post stenting HPI Narrative ANGI JACKSON, is a 74 y/o M with a history of CVA, A-fib on Eliquis, hypertension, COPD, GERD, depression, chronic pain presented to [facility] 11/29/2024 for elective cath. He had stent to the LAD and disease in the sidebranch that was not amenable to stenting and plan was for PCUfor monitoring however patient developed chest pain and it was felt this was dueto the sidebranch, EKG with no new changes but patient transferred to the ICU rudi placed on nitroglycerin drip. Hospitalist contacted to manage patient's other medications and orders. Patient evaluated at bedside. Patient has been somewhat nauseous, also reports the chest pain is on the left side of his chest and feels almost sharp in nature and worse with a deep breath, main complaint atthe time of exam seems to be difficulty catching his breath, necessarily coughing but he is worried he is feeling up with fluids, has history of CVA withsome chronic deficits that are noted and he reports that at baseline [facility] Medical History Gastroparesis Atherosclerotic heart disease of [place] coronary artery without angina pectoris Dyspnea on exertion Near syncope Positional lightheadedness Syncope History of CVA (cerebrovascular accident) TIA (transient ischemic attack) Longstanding persistent atrial fibrillation Nicotine dependence Hyperlipidemia Essential (primary) hypertension Obstructive sleep apnea Bladder diverticulum Squamous cell skin cancer Squamous cell cancer of skin of [place] Anxiety and depression GERD (gastroesophageal reflux disease) CVA (cerebral vascular accident) Osteoarthritis Home Medications ?Medication ?Instructions ?Recorded ?Last Taken ?Type fluticasone fur. 100 mcg-umeclid 1 inh inhalation STEPHANY Y 09/06/21 Unknown History 62.5 mcg-vilant 25 mcg inhalat.powder duloxetine 60 mg capsule,delayed 60 mg PO DAILY Unknown History release ondansetron HCl 4 mg tablet 4 mg PO QHS PRN nausea and vomiting 07/17/23 Unknown History albuterol sulfate 90 mcg/actuation 1 inh inhalation Q8 H PRN shortness 10/31/23 Unknown History aerosol inhaler of breath or wheezing fluticasone propionate 50 1 spray intranasal 10/31/23 Unknown History mcg/actuation nasal spray,suspension metoprolol tartrate 50 mg tablet 50 mg PO BID 10/31/23 Unknown History omeprazole 40 mg capsule,delayed 40 mg PO BID 10/31/23 Unknown History release fexofenadine 180 mg tablet 180 mg PO Q24H 08/20/2411/17 History pregabalin 50 mg capsule (Lyrica) 50 mg PO BID 5 Unknown History isosorbide mononitrate 30 mg 30 mg PO DAILY #90 TABLET S 08/30/24 Unknown Rx tablet,extended release 24 hr apixaban 5 mg tablet (Eliquis) 5 mg PO BID 09/17/24 History atorvastatin 40 mg tablet 40 mg PO QHS 09/17/24 Unknow n History budesonide 160 mcg-glycopyr 9 2 inh inhalation BID Unknown History mcg-formot 4.8 mcg/actuation HFA inhaler (Breztri Aerosphere) buprenorphine 20 mcg/hour weekly 1 patch transdermal Q WEEK 09/17/24 Unknown History transdermal patch furosemide 40 mg tablet (Lasix) 40 mg PO BID #90 tabs 09/17/24 Unknown Rx lactobacillus combination no.9 PO DAILY 09/17/24 Unkno wn History [Adult 50 Plus Probiotic] sucralfate 1 gram tablet PO 09/17/24 Unknown History spironolactone 25 mg tablet 25 mg PO QDAY #30 tabs Unknown Rx empagliflozin 10 mg tablet 10 mg PO QAM #30 tabs 10/27 Unknown Rx (Jardiance) Allergy/AdvReac Type Severity Reaction Status Date / Time codeine Allergy HEART RATE Verified 11/05/24 11:23 IRREGULAR rivaroxaban (From Xarelto) AdvReac Bleeding Verified 11/05/24 11:23 Family History Father Heart disease Hypertension CVA (cerebral vascular accident) Mother Hypertension Breast cancer Surgical History History of left heart catheterization (06/20/20) History of total hip arthroplasty History of bladder surgery (03/29/20) History of total bilateral knee replacement History of cholecystectomy History of colonoscopy Social History Smoking Status: Former smoker alcohol intake: former details: H/O abuse substance use type: does not use caffeine: Yes Type: coffee Number of servings: 4 ROS ROS Narrative Not necessarily complaining of acute cough but is having hard time catching his breath, has chest pain more on the left side that is worse with inspiration and somewhat sharp in nature, has some chronic bowel problems that have not acutely changed, does have some nausea, no changes in urination he reported, legs are not swollen, feels just somewhat unwell overall, ROS otherwise negative Vital Signs Vital Signs Vital Signs: 11/29/24 12:09 11/29/24 12:15 11/29/24 12:30 Pulse Rate 57 L 61 63 Blood Pressure 155/85 H 150/83 H 155/80 H Blood Pressure Mean 108 105 105 Blood Pressure Source Monitor Monitor Monitor Blood Pressure Position Semi-Fowlers Semi-Fowlers Semi-Fowlers Blood Pressure Location Left Arm Left Arm Left Arm Pulse Ox Oxygen Delivery Method 11/29/24 12:45 11/29/24 13:00 11/29/24 13:05 Pulse Rate 66 61 Blood Pressure 139/77 H 148/83 H Blood Pressure Mean 97 104 Blood Pressure Source Blood Pressure Position Blood Pressure Location Pulse Ox 97 Oxygen Delivery Method Room Air 11/29/24 13:15 11/29/24 13:30 Pulse Rate 64 64 Blood Pressure 145/74 H 146/74 H Blood Pressure Mean 97 98 Blood Pressure Source Blood Pressure Position Blood Pressure Location Pulse Ox Oxygen Delivery Method Weight Weight: 97.692 kg Body Mass Index (BMI) 29.2 Physical Exam Narrative General: Alert, oriented, appears very anxious HEENT: Atraumatic, does seem to have some chronic difficulties with facial droopand difficulty getting words out Eyes: Anicteric, normal conjunctiva, extraocular movements grossly intact Neck: Supple Respiratory: Does have some faint crackles at the bases seems almost right greater than left, normal respiratory effort Cardiovascular: Irregularly irregular GI: Soft, nontender, nondistended Extremities: No edema Musculoskeletal: Moving all extremities Neuro: Patient has some residual deficits from previous stroke Skin: No rashes appreciated Psych: Appears very anxious Results Lab / Micro Data 11/19/24 12:14 11/29/24 09:23 Labs: Laboratory Results - last 24 hr 11/29/24 09:23: Sodium 139, Potassium 4.7, Chloride 102, Carbon Dioxide 26.1, Anion Gap 10, BUN 21 H, Creatinine 0.96, Estim Creat Clear Calc 80.13, Est GFR (MDRD) Non-Af 83, BUN/Creatinine Ratio 21.7 H, Glucose 155 H, Calcium 9.4 11/29/24 10:16: Activated Clotting Time 325 H Assessment & Plan Assessment/Plan (1) CAD (coronary artery disease): PLAN: Plan # Coronary artery disease status post LAD stent -Patient with LAD stenting after elective heart cath today 11/29/2024 -Patient subsequently developed chest pain and there were no EKG changes but patient was placed on nitroglycerin drip due to concerns that the symptoms were from a sidebranch and patient transition to ICU -Patient on nitro, Eliquis and aspirin and Brilinta ordered by cardiology -Continue statin and beta-zuly -Further management per cardiology # Chest pain and dyspnea - Patient on nitro drip, reports pain some was more left-sided and worse with inspiration sharp in nature - Presently is vitally stable saturating 100% - Feels he is having difficulty taking a deep breath, again vitally stable - Will check proBNP and chest x-ray - Does have history of COPD, will give neb treatment - If all else negative and does not improve patient's shortness of breath could be related to Brilinta and will need to consider discussing alternate agent withcardiology #Paroxysmal Atrial Fibrillation -Rate control: Metoprolol, will continue -Anticoagulation: Eliquis #Hx COPD -Continue home inhalers -Incentive spirometer #Documented Hx HFpEF - Not in exacerbation - Last echo with no overt abnormalities - Daily weights, I's and O's - Holding Lasix today given patient receiving IV fluids - Monitor volume status and add back Lasix and spironolactone as indicated/tolerated #GERD -Continue PPI # Chronic pain -Patient with buprenorphine patch -Continue home regimen and Lyrica #Elevated glucose - Glucose checks, sliding scale insulin -Restart Jardiance on discharge -James check A1c #Depression/anxiety -Continue home Cymbalta #DVT ppx: Patient chronically be on Eliquis Margarita Levy MD Charges/Coding Visit Charges Inpatient E&M: 42426 Init Hosp L2 11/29/24 1618 <Electronically signed by Margarita Levy MD> Cosigner Signature (if applicable): CC: Dr. Margarita Levy MD; Dr. Jovany Brush MD~ Signed ADDENDUM by Dr. Margarita Levy MD on 11/29/24 at 1619 Addendum Also ordered echocardiogram 11/29/24 1619<Electronically signed by Margarita Levy MD> Cosigner Signature (if applicable): cc: Dr. Margarita Levy MD; Dr. Jovany Brush MD ~* Signed [facility] Work Phone: 1(688) 469-455407-07-2025 Radiology Diagnostic study note [facility] Imaging Services [address] [place], [place] [id number] Chest 1 View (Portable) MR#: [id number] Acct: [id number] Name: ANGI JACKSON Rep #: [id number] : 1950 M 74 From: Jaxon Tobias MD PCP: Dr. Jovany Brush MD Status: REG S DC Study:Chest 1 View (Portable) Date of Exam: 11/29/24 Exam# [id number] Ordering Dr: Sue Levy MD PROCEDURE: CHEST 1 VIEW (PORTABLE) 11/29/2024 REASON FOR EXAM: SOB TECHNIQUE: Frontal view of the chest. COMPARISON: Chest x-ray 08/20/2024. RAD/Chest 1 View (Portable) IMPRESSION: Mild right hemidiaphragm elevation is again present. Lungs appear clear of acute disease. No pleural effusion or pneumothorax is noted. The cardiomediastinal silhouette is stable, without evident of cardiomegaly. No evidence of acute cardiopulmonary disease. Reading Location: [address] CC: Dr. Margarita Levy MD; Dr. Jovany Brush MD ~ Infantry Officer: Signed [facility]07-07-2025 History and physical note [facility] Medical Records Department [address] [place] [address] H&P Exam - Hospitalist 11/29/24 1523 MR#: [id number] Acct: [id number] Name: ANGI JACKSON Rep #:[id number] : 1950 74 From: Margarita Levy MD PCP: Dr. Jovany Brush MD Status:REG S DC Location: ICU ICU05-1 HPI - General General Date of Admission: 11/29/24 Date of Service: 11/29/24 Chief Complaint: Elective heart cath status post stenting HPI Narrative ANGI JACKSON, is a 74 y/o M with a history of CVA, A-fib on Eliquis, hypertension, COPD, GERD, depression, chronic pain presented to [facility] 11/29/2024 for elective cath. He had stent to the LAD and disease in the sidebranch that was not amenable to stenting and plan was for PCUfor monitoring however patient developed chest pain and it was felt this was dueto the sidebranch, EKGwith no new changes but patient transferred to the ICU rudi placed on nitroglycerin drip. Hospitalist contacted to manage patient's other medications and orders. Patient evaluated at bedside. Patienthas been somewhat nauseous, also reports the chest pain is on the left side of his chest and feels almost sharp in nature and worse with a deep breath, main complaint atthe time of exam seems to be difficulty catching his breath, necessarily coughing but he is worried he is feeling up with fluids, has history of CVA withsome chronic deficits that are noted and he reports that at baseline [facility] Medical History Gastroparesis Atherosclerotic heart disease of [place] coronary artery without angina pectoris Dyspnea on exertion Near syncope Positional lightheadedness Syncope History of CVA (cerebrovascular accident) TIA (transient ischemic attack) Longstanding persistent atrial fibrillation Nicotine dependence Hyperlipidemia Essential (primary) hypertension Obstructive sleep apnea Bladder diverticulum Squamous cell skin cancer Squamous cell cancer of skin of [place] Anxiety and depression GERD (gastroesophageal reflux disease) CVA (cerebral vascular accident) Osteoarthritis Home Medications ?Medication ?Instructions ?Recorded ?Last Taken ?Type fluticasone fur. 100 mcg-umeclid 1 inh inhalation STEPHANY Y 09/06/21 Unknown History 62.5 mcg-vilant 25 mcg inhalat.powder duloxetine 60 mg capsule,delayed 60 mg PO DAILY Unknown History release ondansetron HCl 4 mg tablet 4 mg PO QHS PRN nausea and vomiting 07/17/23 Unknown History albuterol sulfate 90 mcg/actuation 1 inh inhalation Q8 H PRN shortness 10/31/23 Unknown History aerosol inhaler of breath or wheezing fluticasone propionate 50 1 spray intranasal 10/31/23 Unknown History mcg/actuation nasal spray,suspension metoprolol tartrate 50 mg tablet 50 mg PO BID 10/31/23 Unknown History omeprazole 40 mg capsule,delayed 40 mg PO BID 10/31/23 Unknown History release fexofenadine 180 mg tablet 180 mg PO Q24H 08/20/2411/17 History pregabalin 50 mg capsule (Lyrica) 50 mg PO BID 5 Unknown History isosorbide mononitrate 30 mg 30 mg PO DAILY #90 TABLET S 08/30/24 Unknown Rx tablet,extended release 24 hr apixaban 5 mg tablet (Eliquis) 5 mg PO BID 09/17/24 History atorvastatin 40 mg tablet 40 mg PO QHS 09/17/24 Unknow n History budesonide 160 mcg-glycopyr 9 2 inh inhalation BID Unknown History mcg-formot 4.8 mcg/actuation HFA inhaler (Breztri Aerosphere) buprenorphine 20 mcg/hour weekly 1 patch transdermal Q WEEK 09/17/24 Unknown History transdermal patch furosemide 40 mg tablet (Lasix) 40 mg PO BID #90 tabs 09/17/24 Unknown Rx lactobacillus combination no.9 PO DAILY 09/17/24 Unkno wn History [Adult 50 Plus Probiotic] sucralfate 1 gram tablet PO 09/17/24 Unknown History spironolactone 25 mg tablet 25 mg PO QDAY #30 tabs Unknown Rx empagliflozin 10 mg tablet 10 mg PO QAM #30 tabs 10/27 Unknown Rx (Jardiance) Allergy/AdvReac Type Severity Reaction Status Date / Time codeine Allergy HEART RATE Verified 11/05/24 11:23 IRREGULAR rivaroxaban (From Xarelto) AdvReac Bleeding Verified 11/05/24 11:23 Family History Father Heart disease Hypertension CVA (cerebral vascular accident) Mother Hypertension Breast cancer Surgical History History of left heart catheterization (06/20/20) History of total hip arthroplasty History of bladder surgery (03/29/20) History of total bilateral knee replacement History of cholecystectomy History of colonoscopy Social History Smoking Status: Former smoker alcohol intake: former details: H/O abuse substance use type: does not use caffeine: Yes Type: coffee Number of servings: 4 ROS ROS Narrative Not necessarily complaining of acute cough but is having hard time catching his breath, has chest pain more on the left side that is worse with inspiration and somewhat sharp in nature, has some chronic bowel problems that have not acutely changed, does have some nausea, no changes in urination he reported, legs are not swollen, feels just somewhat unwell overall, ROS otherwise negative Vital Signs Vital Signs Vital Signs: 11/29/24 12:09 11/29/24 12:15 11/29/24 12:30 Pulse Rate 57 L 61 63 Blood Pressure 155/85 H 150/83 H 155/80 H Blood Pressure Mean 108 105 105 Blood Pressure Source Monitor Monitor Monitor Blood Pressure Position Semi-Fowlers Semi-Fowlers Semi-Fowlers Blood Pressure Location Left Arm Left Arm Left Arm Pulse Ox Oxygen Delivery Method 11/29/24 12:45 11/29/24 13:00 11/29/24 13:05 Pulse Rate 66 61 Blood Pressure 139/77 H 148/83 H Blood Pressure Mean 97 104 Blood Pressure Source Blood Pressure Position Blood Pressure Location Pulse Ox 97 Oxygen Delivery Method Room Air 11/29/24 13:15 11/29/24 13:30 Pulse Rate 64 64 Blood Pressure 145/74 H 146/74 H Blood Pressure Mean 97 98 Blood Pressure Source Blood Pressure Position Blood Pressure Location Pulse Ox Oxygen Delivery Method Weight Weight: 97.692 kg Body Mass Index (BMI) 29.2 Physical Exam Narrative General: Alert, oriented, appears very anxious HEENT: Atraumatic, does seem to have some chronic difficulties with facial droopand difficulty getting words out Eyes: Anicteric, normal conjunctiva, extraocular movements grossly intact Neck: Supple Respiratory: Does have some faint crackles at the bases seems almost right greater than left, normal respiratory effort Cardiovascular: Irregularly irregular GI: Soft, nontender, nondistended Extremities: No edema Musculoskeletal: Moving all extremities Neuro: Patient has some residual deficits from previous stroke Skin: No rashes appreciated Psych: Appears very anxious Results Lab / Micro Data 11/19/24 12:14 11/29/24 09:23 Labs: Laboratory Results - last 24 hr 11/29/24 09:23: Sodium 139, Potassium 4.7, Chloride 102, Carbon Dioxide 26.1, Anion Gap 10, BUN 21 H, Creatinine 0.96, Estim Creat Clear Calc 80.13, Est GFR (MDRD) Non-Af 83, BUN/Creatinine Ratio 21.7 H, Glucose 155 H, Calcium 9.4 11/29/24 10:16: Activated Clotting Time 325 H Assessment & Plan Assessment/Plan (1) CAD (coronary artery disease): PLAN: Plan # Coronary artery disease status post LAD stent -Patient with LAD stenting after elective heart cath today 11/29/2024 -Patient subsequently developed chest pain and there were no EKG changes but patient was placed on nitroglycerin drip due to concerns that the symptoms were from a sidebranch and patient transition to ICU -Patient on nitro, Eliquis and aspirin and Brilinta ordered by cardiology -Continue statin and beta-zuly -Further management per cardiology # Chest pain and dyspnea - Patient on nitro drip, reports pain some was more left-sided and worse with inspiration sharp in nature - Presently is vitally stable saturating 100% - Feels he is having difficulty taking a deep breath, again vitally stable - Will check proBNP and chest x-ray - Does have history of COPD, will give neb treatment - If all else negative and does not improve patient's shortness of breath could be related to Brilinta and will need to consider discussing alternate agent withcardiology #Paroxysmal Atrial Fibrillation -Rate control: Metoprolol, will continue -Anticoagulation: Eliquis #Hx COPD -Continue home inhalers -Incentive spirometer #Documented Hx HFpEF - Not in exacerbation - Last echo with no overt abnormalities - Daily weights, I's and O's - Holding Lasix today given patient receiving IV fluids - Monitor volume status and add back Lasix and spironolactone as indicated/tolerated #GERD -Continue PPI # Chronic pain -Patient with buprenorphine patch -Continue home regimen and Lyrica #Elevated glucose - Glucose checks, sliding scale insulin -Restart Jardiance on discharge -James check A1c #Depression/anxiety -Continue home Cymbalta #DVT ppx: Patient chronically be on Eliquis Margarita Levy MD Charges/Coding Visit Charges Inpatient E&M: 73826 Init Hosp L2 11/29/24 1617 Cosigner Signature (if applicable): CC: Dr. Margarita Levy MD; Dr. Jovany Brush MD~ Signed ADDENDUM by Dr. Margarita Levy MD on 11/29/24 at 1619 Addendum Also ordered echocardiogram 11/29/24 1619 Cosigner Signature (if applicable): cc: Dr. Margarita Levy MD; Dr. Jovany Brush MD ~* Signed [facility]07-07-2025 Study report [facility] Cardiac Rehab [address] [place] [address] CR: Phase I Education Summary MR#: [id number] Acct: [id number] Name: ANGI JACKSON Rep #:[id number] : 1950 74 From: Barry Hughes PCP: Dr. Jovany Brush MD DOS: General Education Discussed with Patient CAD and cardiac anatomy and function:: Patient communicates acknowledgment and Family communicates acknowledgment Explanation of diagnoses and procedures:: Patient communicates acknowledgment and Family communicates acknowledgment Sign/Symptoms of UT:: Patient communicates acknowledgment and Family communicates acknowledgment Antiplatelet therapy: Patient communicates acknowledgment and Family communicates acknowledgment Proper use of NTG-SL: Patient communicates acknowledgment and Family communicates acknowledgment Emergency procedures and activation of EMS: Patient communicates acknowledgment and Family communicates acknowledgment Compliance of all prescribed medications: Patient communicates acknowledgment and Family communicates acknowledgment Smoking Risk Factors Patient Nicotine/Smoking Risk Factors Are:: Cigarettes Recommendations Recommendations Include:: Previous smoker; encourage continued cessation Response Code Nicotine/Smoking Response Code:: Patient communicates acknowledgment and Family communicates acknowledgment Dyslipidemia Risk Factors Patient Dyslipidemia Risk Factors Are:: Total Cholesterol, Triglycerides, HDL and LDL Recommendations Recommendations Include:: Lipid profile not available Response Code Dyslipidemia Response Code:: Patient communicates acknowledgment and Family communicates acknowledgment Overweight/Obesity Risk Factors Patient Overweight/Obesity Risk Factors Are:: BMI Normal [24-29 & > 65 years old] Recommendations Recommendations Include:: Weight loss of 5-10%, Reduced calorie diet and Exercise 5-7 times/week Response Code Overweight/Obesity:: Patient communicates acknowledgment and Family communicatesacknowledgment Hypertension Recommendations Recommendations Include:: Maintain BP <130/85 Response Code Hypertension:: Patient communicates acknowledgment and Family communicates acknowledgment Sedentary Risk Factors Patient Sedentary Risk Factors Are:: Lack of regular exercise Recommendations Recommendations Include:: Aerobic exercise 5-7 times/week for 20-30 minutes continuously, Benefits of regular exercise, Discussed home walking program and Monitored Outpatient Cardiac Rehab Response Code Sedentary Response Code:: Patient communicates acknowledgment and Family communicates acknowledgment 11/29/24 1313 Date Barry W Saul Outcome assessment reviewed. Exercise plan approved as documented. Treatment plan and goals support patient needs/abilities. Continue with current plan. I certify the patient demonstrates improvement and remains willing and capable of participation. the patient continues to benefit from cardiac rehab services/training. The patient may continue at current intensity, endurance andmodality and progress per protocol. Cosigner Signature: Date CC: ~ Signed [facility]04-01-2025 Radiology Diagnostic study note [facility] Imaging Services [address] [place], [place] [address] Chest PA and Lateral MR#: [id number] Acct: [id number] Name: ANGI JACKSON Rep #: [id number] : 1950 M 74 From: Angelique Saba MD PCP: PRAKASH Lanier Status: REG CLI Study:Chest PA and Lateral Date of Exam: 08/20/24 Exam# [id number] Ordering Dr: Maikel Liang EXAM: XR Chest, 2 Views CLINICAL INDICATION: SHORTNESS OF BREATH TECHNIQUE: Frontal and lateral views of the chest. COMPARISON: No relevant prior studies available. FINDINGS: LUNGS AND PLEURAL SPACES: See below. HEART: Cardiomegaly with mild congestion. MEDIASTINUM: Unremarkable. Normal mediastinal contour. BONES/JOINTS: Unremarkable. No acute fracture. RAD/Chest PA and Lateral IMPRESSION: Cardiomegaly with mild congestion. Reading Location: [facility] CC: PRAKASH Harper; MAURO Ramos ~ Infantry Officer: Signed [facility]03-28-2025 Evaluation note* Diagnosis Onset Date Resolution Status Admit Date Chest pain acute August 20 10:02am CHF (congestive heart failure) acute August 20, 2024 10:02am Dyspnea acute August 20 10:02am Hypokalemia acute August 20, 025 10:02am PVCs (premature ventricular contractions) acute August 20, 2024 10:02am 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 chronic August 20, 2024 10:02am Essential (primary) hypertension chr onic August 20, 2024 10:02am Hyperlipidemia chronic July 10:02am Longstanding persistent atri al fibrillation chronic August 20, 2024 10:02am [facility] Work Phone: 1(938) 767-842203-28-2025 Evaluation note* Diagnosis Onset Date Resolution Status Admit Date Chest pain acute August 20 10:02am CHF (congestive heart failure) acute August 20, 2024 10:02am Dyspnea acute August 20 10:02am PVCs (premature ventricular contractions) acute August 20, 2024 10:02am 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 chronic August [...] 2024 11:05am 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 chronic September 17, 2024 11:05am Essential (primary) hypertension chr onic September 17, 2024 11:05am Hyperlipidemia chronic August 11:05am Longstanding persistent atri al fibrillation chronic September 17, 2024 11:05am Hypokalemia resolved September 17 025 11:05am [facility] Work Phone: 1(641) 514-405303-28-2025 Evaluation note* Diagnosis Onset Date Resolution Status Admit Date Chest pain acute August 20 10:02am CHF (congestive heart failure) acute August 20, 2024 10:02am Dyspnea acute August 20 10:02am PVCs (premature ventricular contractions) acute August 20, 2024 10:02am 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 chronic August [...] 2024 11:05am 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 chronic September [...] 2024 11:09am 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 chronic November 05, 2024 11:09am Essential (primary) hypertension chr onic November 05, 2024 11:09am Hyperlipidemia chronic November 05, 2024 11:09am Longstanding persistent atri al fibrillation chronic November 05, 2024 11:09am Hypokalemia resolved November 05 11:09am [facility] Work Phone: 1(136) 869-143503-28-2025 Evaluation note* Diagnosis Onset Date Resolution Status Admit Date Chest pain acute August 20 10:02am CHF (congestive heart failure) acute August 20, 2024 10:02am Dyspnea acute August 20 10:02am PVCs (premature ventricular contractions) acute August 20, 2024 10:02am 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 chronic August [...] 2024 11:05am 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 chronic September [...] 2024 11:09am 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 chronic November [...] fibrillation chronic November 29, 2024 9 :18am [facility] Work Phone: 1([phone]) 704-452503-28-2025 Evaluation note* Diagnosis Onset Date Resolution Status Admit Date Chest pain acute August 20 10:02am CHF (congestive heart failure) acute August 20, 2024 10:02am Dyspnea acute August 20 10:02am PVCs (premature ventricular contractions) acute August 20, 2024 10:02am 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 chronic August 202024 10:02am Essential (primary) hypertension chronic August 20, [...] 2024 11:05am 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 chronic September 172024 11:05am Essential (primary) hypertension chronic September 17, 2024 11:05am Hyperlipidemia chronic August 11:05am Longstanding persistent atri al fibrillation chronic September 17, 2024 11:05am Hypokalemia resolved September 17, 2 025 11:05am Chest pain acute November 05 11:09am CHF (congestive heart failure) acute November 05, 2024 11:09am Dyspnea acute November 05 11:09am PVCs (premature ventricular contractions) acute November 05, 2024 11:09am 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 chronic October 11:09am Essential (primary) hypertension chronic November 05, 2024 11:09am Hyperlipidemia chronic November 05, 2024 11:09am Longstanding persistent atri al fibrillation chronic November 05, 2024 11:09am Hypokalemia resolved November 05 11:09am Abdominal pain acute November 29, 2024 2:58pm CAD (coronary artery disease) acute November 29, 2024 2:58pm Essential (primary) hypertension chronic November 29, 2024 2:58pm Hyperlipidemia chronic November 29, 2024 2:58pm Longstanding persistent atri al fibrillation chronic November 29, 2024 2:58pm Stented coronary artery November 29, 2024 chronic November 29, 2024 2:58pm [facility] Work Phone: 1(582) 699-479003-28-2025 Evaluation note* Diagnosis Onset Date Resolution Status Admit Date Chest pain acute August 20 10:02am CHF (congestive heart failure) acute August 20, 2024 10:02am Dyspnea acute August 20 10:02am PVCs (premature ventricular contractions) acute August 20, 2024 10:02am 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 chronic August 202024 10:02am Hypokalemia resolved August 20 10:02am Essential (primary) hypertension inactive August 20, 2024 10:02am Hyperlipidemia inactive July 10:02am Longstanding persistent atri al fibrillation inactive August 20, 2024 10:02am Chest pain acute September 17 11:05am CHF (congestive heart failure) acute September 17, 2024 11:05am Dyspnea acute September 17 11:05am PVCs (premature ventricular contractions) acute September 17, 2024 11:05am 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 chronic September 172024 11:05am Hypokalemia resolved September 17, 025 11:05am Essential (primary) hypertension inactive September 17, 2024 11:05am Hyperlipidemia inactive August 11:05am Longstanding persistent atri al fibrillation inactive September 17, 2024 11:05am Chest pain acute November 05 11:09am CHF (congestive heart failure) acute November 05, 2024 11:09am Dyspnea acute November 05 11:09am PVCs (premature ventricular contractions) acute November 05, 2024 11:09am 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 chronic October 11:09am Hypokalemia resolved November 05 11:09am Essential (primary) hypertension inactive November 05, 2024 11:09am Hyperlipidemia inactive November 05, 2024 11:09am Longstanding persistent atri al fibrillation inactive November 05, 2024 11:09am Abdominal pain resolved November 29, 2024 2:58pm CAD (coronary artery disease) inacti ve November 29, 2024 2:58pm Essential (primary) hypertension inactive November 29, 2024 2:58pm Hyperlipidemia inactive November 29, 2024 2:58pm Longstanding persistent atri al fibrillation inactive November 29, 2024 2:58pm Stented coronary artery November 29, 2024 inactive November 29, 2024 2:58pm [facility] Work Phone: [phone]) 850-809704-06-2023 Note ORIGINAL EXAMINATION: GASTRIC EMPTYING STUDY08/29/2022 3:10 [...] 08/29/2022 3:17:37 PM Ordering Provider: PATO WEST [place] [address]-06-2023 Note ORIGINAL EXAMINATION: GASTRIC EMPTYING STUDY08/29/2022 3:10 [...] Date: 08/29/2022 3:17:37 PM [facility] + Plan noteExtracted from: Title:Clinical Document Author:PATO WEST Date:07/15/22 [facility] ADMISSION HISTORY AN D PHYSICIAL CHIEF COMPLAINT: HISTORY OF PRESENT ILLNESS: REVIEW OF SYSTEMS: ACTIVE PROBLEMS: (23) Alcoholism (93600044) Anxiety depression (692631351) Atrial fibrillation (31186506) Back pain (541858979) BPH - benign prostatic hyperplasia (8966337288) Catheter, device, per self; per urologist (3039614914) COPD with chronic bronchitis (210541579) Elevated liver enzymes (3367796450) Enlarged prostate (813905612) Erectile dysfunction (3078615370) GERD (gastroesophageal reflux disease) (177052652) Hepatitis (456760252) Hiatal hernia (254449230) Hyperlipidemia (10934009) Hypertension (38408410) Kidney stone (522267477) Lightheadedness (2439933548) Osteoarthritis (2186469432) Palpitations (760722617) 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) Sleep apnea (158886819) Squamous cell carcinoma (19557736) Tobacco use (6077034147) MEDICATIONS: Active Inpt Meds: celecoxib (CeleBREX) Start: [...] FAMILY HISTORY: SOCIAL HISTORY: PHYSICAL EXAM: VITALS: KohpvtQiwuNYExgmnNUZwO7IHZ3AospRg(kg) 07/15 09:45----66--78.8--07/15 80.0 07/15 09:40----55------ 07/15 08:3436.5--[id number] 24 Hr Tmax: 36.5 at 07/15 08:34 [...] Extracted from: Title:Clinical Document Author:PATO WEST Date:07/15/22 [facility] ADMISSION HISTORY AN D PHYSICIAL CHIEF COMPLAINT: HISTORY OF PRESENT ILLNESS: REVIEW OF SYSTEMS: ACTIVE PROBLEMS: (23) Alcoholism (12296303) Anxiety depression (819749132) Atrial fibrillation (15283892) Back pain (274834247) BPH - benign prostatic hyperplasia (3445968849) Catheter, device, per self; per urologist (8585968968) COPD with chronic bronchitis (650305627) Elevated liver enzymes (1783581314) Enlarged prostate (834296224) Erectile dysfunction (8496021922) GERD (gastroesophageal reflux disease) (060584857) Hepatitis (588885350) Hiatal hernia (014675808) Hyperlipidemia (04626651) Hypertension (12208996) Kidney stone (623045533) Lightheadedness (4786218294) Osteoarthritis (5644518384) Palpitations (423080359) 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 (0825742267) Sleep apnea (012436456) Squamous cell carcinoma (78639459) Tobacco use (4439172312) MEDICATIONS: Active Inpt Meds: celecoxib (CeleBREX) Start: [...] FAMILY HISTORY: SOCIAL HISTORY: PHYSICAL EXAM: VITALS: JfmmdoZtxnDFOtfzyIWOwR4OUS0TnzbMm(kg) 07/15 08:3436.5--6428137VJ64/20 80.0 24 Hr Tmax: 36.5 at 07/15 [...] Appointment Date:07/16/2022 10:00:00 AM Scheduled Provider:MARCOS HARPER Location:[facility] Appointment Type:PC Acute Appointment Date:07/17/2022 08:45:00 AM Scheduled Provider: Location:[facility] Appointment Type:ACC POC Established Patient Appointment Date:09/18/2022 11:30:00 AM Scheduled Provider:MARCOS HARPER Location:[facility] Appointment Type:PC OV Future Scheduled Tests Laboratory* Complete Blood Count 03/04/22 * Lipid Profile 03/04/22 * Complete Metabolic Panel 03/04/22 Radiology* XR Chest 2 Views (PA & Lateral) 07/24/21 [facility] 02-20-2023 Hospital Discharge instructions Patient Education 07/15/2022 [...] until you are awake and alert. Take notv-wom-ngtxgbc and prescription medicines only as told by [...] 03/02/2014 Document Revised: 04/24/2018 Document Reviewed: 08/31/2016 [employer] Patient Education 2020 [employer]. 07/15/2022 10:00:44 Esophagogastroduodenoscopy, Care After (76863) Esophagogastroduodenoscopy, Care After Refer to this sheet [...] 04/28/2013 Document Revised: 10/17/2016 Document Reviewed: 04/04/2016 [employer] Interactive Patient Education 2019 [employer]. Follow Up Care 06/25/2022 13:39:48 With:PATO WEST MD Address: [address] [place] [phone] When: Unknown Comments:Follow up as direct [facility] 02-20-2023 Summary of episode note Discharge Instructions Thank you for allowing [facility] to assist you with your healthcare needs. The following is importantdischarge information regarding your hospital visit. Your Care Team MARCOS HARPER What to do next Scheduled Follow-Up Appointments Appointment Type When With Where Contact InformationACC POC Established Patient 07/17/2022 08:45 AMEST [facility] OV 09/18/2022 11:30 AM EDT MARCOS HARPER [address] [address] Follow Up Appointments Follow Up with PATO WEST MD When Why: Follow up as direct Where: [address] [place] [phone] The Following Activity and Diet Have Been [...] until you are awake and alert. Take lpot-fic-ihwghie and prescription medicines only as told by [...] 03/02/2014 Document Revised: 04/24/2018 Document Reviewed: 08/31/2016 [employer] Patient Education 2020 [employer] Esophagogastroduodenoscopy, Care After Refer to this sheet [...] 04/28/2013 Document Revised: 10/17/2016 Document Reviewed: 04/04/2016 [employer] Interactive Patient Education 2019 [employer] Additional Information VACCINATE! IT SAVES LIVES! Members of the community who have not yet received the COVID-19 vaccine and would like to receive it can visit one of [facility] vaccine clinics. There are many vaccine clinic locations within the [facility]. For locations and available times, please visit [email or web address] It is important to note that some COVID mobile vaccine clinics are held outdoors and may be canceled in rainy or stormy conditions. To learn more about pediatric vaccinations (ages 5-11), we invite you to visit the [facility] webpage. [email or web address]/[email or web address]-[email or web address]-[email or web address]-[email or web address] [email or web address].htmlTo learn more about the COVID-19 vaccine, we invite you to visit the CDC website for a list of frequently asked questions. https://www.cdc.gov/coronavirus/2019-ncov/vaccines/faq.html [facility] Patient Portal Access Instructions: Stay connected with your healthcare team and access your personal medical information anytime with the [email or web address] Patient Portal.If you would like a full copy of your medical records, please contact the [facility] Medical Records Department, Friday through Friday between 8a.m. and 4:30p.m. Please follow the directions below to access the portal: 1.Access the email account you provided upon registration to the [facility].2.Look for an invitation email from [facility].3.Open the email and access the invitation link: Accept Invitation to [email or web address].Fill in the required vaca to create your account. Sign into [email or web address] with your username and password that you [...] you will allow to register on the [email or web address] Patient Portal for access to your information. You can also access the [email or web address] Patient Portal on the [employer]. Simply click on "Health Records" under "HealthData" and then click on the [employer] logo. HOW TO SAFELY DISPOSE OF PRESCRIPTION [...] Call your local pharmacy or go to [email or web address] to find one close to you.3.Make use of household items: Use cat litter or old coffee grounds to dispose medications if other options arenot available. Mix your drugs with these household products, seal them in an airtight container andthrow it into the garbage. Call [facility]: [phone] to be sure your drugs can be [...] Sedation, Adult, Care After Esophagogastroduodenoscopy, Care After (29137) Medication Leaflets My discharge plan and instructions have been reviewed and explained to me and IRENETTA JEPTHA B understand my current condition and have read and understand these discharge instructions. I have received a written copy of the plan/instructions. If I have questions, I am aware that I should contact my doctor. Patient/Data Abstractor Signature: Date/Time: Relationship to Patient: Witness Name/Signature: Date/Time: [facility] Note [facility] ADMISSION HISTORY AND PHYSICIAL CHIEF COMPLAINT: HISTORY OF PRESENT ILLNESS: REVIEW OF SYSTEMS: ACTIVE PROBLEMS: (23) Alcoholism (84969635) Anxiety depression (142590723) Atrial fibrillation (89266971) Back pain (852991774) BPH - benign prostatic hyperplasia (6993475938) Catheter, device, per self; per urologist (7527475173) COPD with chronic bronchitis (566930753) Elevated liver enzymes (3990489062) Enlarged prostate (271888509) Erectile dysfunction (4847733000) GERD (gastroesophageal reflux disease) (246125346) Hepatitis (278631221) Hiatal hernia (843603929) Hyperlipidemia (27602298) Hypertension (48730820) Kidney stone (812077067) Lightheadedness (2024029600) Osteoarthritis (5353050650) Palpitations (173618993) 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 (5882728288) Sleep apnea (445364241) Squamous cell carcinoma (88269869) Tobacco use (2629376533) MEDICATIONS: Active Inpt Meds: celecoxib (CeleBREX) Start: [...] FAMILY HISTORY: SOCIAL HISTORY: PHYSICAL EXAM: VITALS: UpxorvGqidIPImuxeYYAuI8YHE8QqluSu(kg) 07/15 09:45----66--78.8--07/15 80.0 07/15 09:40----55------ 07/15 08:3436.5--[id number] 24 Hr Tmax: 36.5 at 07/15 08:34 [...] PATO WEST MD on 07/15/2022 09:51 AM [facility]02-[facility] Anesthesiology Consult note Patient: ANGI JACKSON Age: 72 years Sex: Male : 1950 Associated Diagnoses: None Author: PRIYA ETIENNE QUALITY ANALYST/TECHNICAL WRITER-RN FLIGHT Assessment Postanesthesia assessment Vitals: Vital signs from [...] by PRIYA ETIENNE on 07/15/2022 09:51 AM [facility] Anesthesiology Consult note Patient: ANGI JACKSON Age: [...] Problem list: Medical Alcoholism / SNOMED CT 76339407 / Confirmed Anxiety depression / SNOMED CT 016700315 / Confirmed Atrial fibrillation / SNOMED CT 58493126 / Confirmed Back pain / SNOMED CT 893572908 / Confirmed BPH - benign prostatic hyperplasia / SNOMED CT 5083130406 / Confirmed Catheter, device, per self; per urologist / SNOMED CT 1905548596 / Confirmed Elevated liver enzymes / SNOMED CT 0689261737 / Confirmed 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 / Confirmed Erectile dysfunction / SNOMED CT 6886321237 / Confirmed GERD (gastroesophageal reflux disease) / SNOMED CT 324030868 / Confirmed Hiatal hernia / SNOMED CT 107262712 / Confirmed Hyperlipidemia / SNOMED CT 02598116 / Confirmed Hypertension / SNOMED CT 54103960 / Confirmed Hepatitis / SNOMED CT 558191869 / Confirmed Kidney stone / SNOMED CT 002927617 / Confirmed Enlarged prostate / SNOMED CT 702612902 / Confirmed Lightheadedness / SNOMED CT 4864936675 / Confirmed Osteoarthritis / SNOMED CT 1296757153 / Confirmed Palpitations / SNOMED CT 710611653 / Confirmed 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 / SNOMED CT 6247926316 / Confirmed Sleep apnea / SNOMED CT 871389556 / Confirmed Squamous cell carcinoma / SNOMED CT 33378799 / Confirmed, Active Problems (23) Alcoholism Anxiety [...] use Histories Past Medical History: Active Hypertension (53511494) Sleep apnea (534257275) Comments: 08/18/2017 EDT 13:48 Khalida Gallo RN HAS CPAP, DOES NOT USE GERD (gastroesophageal reflux disease) (372615881) Hiatal hernia (310575184) Hepatitis (443973041) Comments: 08/18/2017 EDT 13:51 Khalida Gallo RN PT UNSURE WHICH TYPE Kidney stone (679572809) Comments: 08/18/2017 EDT 13:52 Khalida Gallo RN HISTORY OF Enlarged prostate (970938674) Osteoarthritis (8113689992) Family History: Cancer Brother Comments: 12/24/2018 12:02 Charu Boogie CMA prostate Rheumatoid arthritis Daughter Hypothyroidism Daughter Alcohol abuse Father Stroke Father Cancer Mother Heart disease Father Brother Procedure history: Arthroplasty of the hip (353869503) on 02/10/2018 at 67 Years. Comments: 02/10/2018 9:50 Cristina Johns RN RIGHT ANTERIOR HIP REPLACEMENT Total replacement of left hip joint (592439606951088) on 08/26/2017 at 67 Years. Cholecystectomy (79321485). Comments: 08/18/2017 13:52 DANIELE Glalo 1991S Colonoscopy (296316010). Dilation of urethra (32567671). Cataract (483407567). Comments: 02/10/2018 5:49 DANIELE Gallo REBECCA Tonsillectomy (212117825). Social History Social & Psychosocial Habits Alcohol [...] Admission Weight 80 kg Weight Method Stated [place] Body Weight 75.26 kg BSA Admission 2 [...] available , Lab results 07/15/2022 9:39 EST [place] History and Physical 07/15/2022 9:38 EST SN [...] Surgeon SN - CAt - Role Performed RN FLIGHT SN - CAt - Role Performed Solderer Dipper SN - CAt - Role Performed Skin Care Consultant 1 07/15/2022 9:04 EST Progress Note-Nurse PRE-OP [...] Daughter Designated Person #2 We May Share VERN Bonds Designated Person #2 Relationship Other: son-in-law Height 180.3 cm Admission Weight 80 kg Weight Method Stated [place] Body Weight 75.26 kg BSA Admission 2 [...] All Quadrants Present Status N/A Skin Description [place], Normal for ethnicity Skin Integrity Intact IV [...] Weeks No Weight Loss No Allergies Yes Heading Matcher And Assembler On Yes Consent Form Signed Yes Patient Dressed In Hospital gown Pre-op Preparation Glasses removed History & Physical Update On Chart Yes History & Physical On Chart Yes Obstructive Sleep Apnea Assess Completed Yes Barriers to Learning None evident Teaching Method Explanation Preferred Written Language Colombian Preferred Spoken Language Colombian Information Given by Patient Patient's Current Physicians [...] Note-Nursing Procedure/Therapy Intake . Assessment and Plan [place] [employer] Anesthesiologists (ASA) physical status classification: Class III. Anesthetic Preoperative Plan Anesthetic technique: MAC. Informed consent: signed by patient. Digitally Signed by PRIYA ETIENNE on 07/15/2022 09:43 AM [facility]02-20-2023 Note [facility] ADMISSION HISTORY AND PHYSICIAL CHIEF COMPLAINT: HISTORY OF PRESENT ILLNESS: REVIEW OF SYSTEMS: ACTIVE PROBLEMS: (23) Alcoholism (56183847) Anxiety depression (104448848) Atrial fibrillation (83007686) Back pain (310710552) BPH - benign prostatic hyperplasia (5888283143) Catheter, device, per self; per urologist (3864821539) COPD with chronic bronchitis (341802039) Elevated liver enzymes (8218113778) Enlarged prostate (295010303) Erectile dysfunction (7162760274) GERD (gastroesophageal reflux disease) (334239549) Hepatitis (732878254) Hiatal hernia (382375309) Hyperlipidemia (40124858) Hypertension (07555534) Kidney stone (913288539) Lightheadedness (7897169444) Osteoarthritis (5237191925) Palpitations (829027520) 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 Pt aware of the risks and chooses to go throughwill procedure today. Digitally Signed by Sonam Lua RN on 07/15/2022 09:06 AM [facility]01-27-2023 Note ORIGINAL EXAMINATION: ESOPHAGRAM/BA SWALLOW06/21/2022 8:54 am [...] 06/21/2022 9:19:29 AM Ordering Provider: PATO WEST [facility]01-27-2023 Note ORIGINAL EXAMINATION: ESOPHAGRAM/BA SWALLOW06/21/2022 8:54 am [...] Date: 06/21/2022 9:19:29 AM Ordering [facility] Future Appointments Appointment Date:08/20/2021 08:50:00 AM Scheduled Provider:ILENE ANDERSON Location:[facility] Appointment Type:PC OV Future Scheduled Tests Laboratory* Complete Blood Count 02/19/21 * Lipid Profile 02/19/21 * Complete Metabolic Panel 02/19/21 Radiology* US Abdomen Limited 04/11/21 [facility] Evaluation + Plan note Future Appointments Appointment Date:08/20/2021 08:50:00 AM Scheduled Provider:ILENE ANDERSON Location:[facility] Appointment Type:PC OV Future Scheduled Tests Laboratory* Complete Blood Count 02/19/21 * Lipid Profile 02/19/21 * Complete Metabolic Panel 02/19/21 [facility] Evaluation + Plan note Future Appointments Appointment Date:07/26/2021 10:00:00 AM Scheduled Provider: Location:[facility] Appointment Type:PT Treatment - [place] Appointment Date:08/07/2021 09:00:00 AM Scheduled Provider: Location:[facility] Appointment Type:ACC POC Established Patient Appointment Date:08/20/2021 08:50:00 AM Scheduled Provider:ILENE ANDERSON Location:[facility] Appointment Type:PC OV Future Scheduled Tests Laboratory* Complete Blood Count 02/19/21 * Lipid Profile 02/19/21 * Complete Metabolic Panel 02/19/21 Radiology* XR Chest 2 Views (PA & Lateral) 07/24/21 [facility] Evaluation + Plan note Future Appointments Appointment Date:08/29/2021 10:30:00 AM Scheduled Provider: Location:[facility] Appointment Type:PT Treatment - [place] Appointment Date:09/04/2021 08:30:00 AM Scheduled Provider: Location:[facility] Appointment Type:ACC POC Established Patient Appointment Date:02/11/2022 08:50:00 AM Scheduled Provider:ILENE ANDERSON Location:[facility] Appointment Type:PC OV Future Scheduled Tests Laboratory* Complete Blood Count 02/19/21 * Lipid Profile 02/19/21 * Complete Metabolic Panel 02/19/21 Radiology* XR Chest 2 Views (PA & Lateral) 07/24/21 [facility] Evaluation + Plan note Future Appointments Appointment Date:09/18/2022 11:30:00 AM Scheduled Provider:MARCOS HARPER Location:[facility] Appointment Type:PC OV Future Scheduled Tests Laboratory* Complete Blood Count 03/04/22 * Lipid Profile 03/04/22 * Complete Metabolic Panel 03/04/22 Radiology* XR Chest 2 Views (PA & Lateral) 07/24/21 [facility] Evaluation + Plan note Future Appointments Appointment Date:08/27/2022 11:00:00 AM Scheduled Provider:MARCOS HARPER Location:[facility] Appointment Type:PC OV Appointment Date:09/06/2022 10:00:00 AM Scheduled Provider: Location:[facility] Appointment Type:ACC POC Established Patient Appointment Date:09/18/2022 11:30:00 AM Scheduled Provider:MARCOS HARPER Location:[facility] Appointment Type:PC OV Future Scheduled Tests Laboratory* Complete Blood Count 03/04/22 * Lipid Profile 03/04/22 * Complete Metabolic Panel 03/04/22 [facility] Evaluation + Plan note Future Appointments Appointment Date:09/06/2022 10:00:00 AM Scheduled Provider: Location:[facility] Appointment Type:ACC POC Established Patient Appointment Date:10/10/2022 10:30:00 AM Scheduled Provider:MARCOS HARPER Location:[facility] Appointment Type:PC OV Future Scheduled Tests Laboratory* Complete Blood Count 03/04/22 * Lipid Profile 03/04/22 * Complete Metabolic Panel 03/04/22 [facility] Evaluation + Plan note Future Appointments Appointment Date:10/07/2023 09:30:00 AM Scheduled Provider: Location:[facility] Appointment Type:PT Treatment - [place] Appointment Date:10/09/2023 11:30:00 AM Scheduled Provider: Location:[facility] Appointment Type:PT [facility] Appointment Date:10/14/2023 10:30:00 AM Scheduled Provider: Location:[facility] Appointment Type:PT Treatment [facility] Appointment Date:10/16/2023 10:30:00 AM Scheduled Provider: Location:[facility] Appointment Type:PT [facility] Appointment Date:10/21/2023 10:30:00 AM Scheduled Provider: Location:[facility] Appointment Type:PT [facility] Appointment Date:10/23/2023 10:30:00 AM Scheduled Provider: Location:[facility] Appointment Type:PT [facility] Appointment Date:10/28/2023 10:30:00 AM Scheduled Provider: Location:[facility] Appointment Type:PT [facility] Appointment Date:11/13/2023 09:30:00 AM Scheduled Provider: Location:[facility] Appointment Type:ACC POC Established Patient Appointment Date:03/10/2024 10:30:00 AM Scheduled Provider:MARCOS HARPER Location:[facility] Appointment Type:PC OV Future Scheduled Tests Laboratory* Prostate Specific Antigen 09/09/23 * Thyroid Stimulating Hormone 09/09/23 * A1C Hemoglobin 09/09/23 * Complete Blood Count 10/10/22 * Complete Blood Count 09/09/23 * Lipid Profile 09/09/23 * Vitamin D Level 09/09/23 * Complete Metabolic Panel 10/10/22 * Complete Metabolic Panel 09/09/23 [facility] Evaluation + Plan note Future Appointments Appointment Date:10/30/2023 11:30:00 AM Scheduled Provider: Location:[facility] Appointment Type:CT Chest w/o Contrast Appointment Date:11/04/2023 11:30:00 AM Scheduled Provider: Location:[facility] Appointment Type:CT Abdomen and Pelvis w/ Contrast Appointment Date:11/13/2023 09:30:00 AM Scheduled Provider: Location:[facility] Appointment Type:ACC POC Established Patient Appointment Date:03/10/2024 10:30:00 AM Scheduled Provider:MARCOS HARPER Location:[facility] Appointment Type:PC OV Future Scheduled Tests Laboratory* Prostate Specific Antigen 09/09/23 * Thyroid Stimulating Hormone 09/09/23 * A1C Hemoglobin 09/09/23 * Complete Blood Count 09/09/23 * Lipid Profile 09/09/23 * Vitamin D Level 09/09/23 * Complete Metabolic Panel 09/09/23 Radiology* CT Thorax w/o Contrast 10/30/23 * CT Abdomen and Pelvis w/ contrast 11/04/23 [facility] Evaluation + Plan note Future Appointments Appointment Date:11/04/2023 03:45:00 AM Scheduled Provider: Location:[facility] Appointment Type:CT Abdomen and Pelvis w/ Contrast Appointment Date:11/13/2023 09:30:00 AM Scheduled Provider: Location:[facility] Appointment Type:ACC POC Established Patient Appointment Date:03/10/2024 10:30:00 AM Scheduled Provider:MACROS HARPER Location:[facility] Appointment Type:PC OV Future Scheduled Tests Laboratory* Prostate Specific Antigen 09/09/23 * Thyroid Stimulating Hormone 09/09/23 * A1C Hemoglobin 09/09/23 * Complete Blood Count 09/09/23 * Lipid Profile 09/09/23 * Vitamin D Level 09/09/23 * Complete Metabolic Panel 09/09/23 Radiology* CT Abdomen and Pelvis w/ contrast 11/04/23 [facility] Evaluation + Plan note Future Appointments Appointment Date:01/05/2024 10:00:00 AM Scheduled Provider: Location:[facility] Appointment Type:ACC POC Established Patient Appointment Date:03/10/2024 10:30:00 AM Scheduled Provider:MARCOS HARPER Location:[facility] Appointment Type:PC OV Future Scheduled Tests Laboratory* Prostate Specific Antigen 09/09/23 * Thyroid Stimulating Hormone 09/09/23 * A1C Hemoglobin 09/09/23 * Complete Blood Count 09/09/23 * Lipid Profile 09/09/23 * Vitamin D Level 09/09/23 * Complete Metabolic Panel 09/09/23 Radiology* CT Abdomen and Pelvis w/ contrast 11/04/23 [facility] Evaluation + Plan note Future Appointments Appointment Date:01/30/2024 10:00:00 AM Scheduled Provider: Location:[facility] Appointment Type:ACC POC Established Patient Appointment Date:02/03/2024 01:00:00 PM Scheduled Provider: Location:[facility] Appointment Type:CT Abdomen and Pelvis w/ Contrast Appointment Date:02/03/2024 01:30:00 PM Scheduled Provider: Location:[facility] Appointment Type:CT Chest w/ Contrast Appointment Date:03/10/2024 10:30:00 AM Scheduled Provider:MARCOS HARPER Location:[facility] Appointment Type:PC OV Future Scheduled Tests Laboratory* Prostate Specific Antigen 09/09/23 * Thyroid Stimulating Hormone 09/09/23 * A1C Hemoglobin 09/09/23 * Complete Blood Count 09/09/23 * Lipid Profile 09/09/23 * Vitamin D Level 09/09/23 * Complete Metabolic Panel 09/09/23 Radiology* CT Thorax w/ Contrast 02/03/24 * CT Abdomen and Pelvis w/ contrast 02/03/24 [facility] Evaluation + Plan note Future Appointments Appointment Date:02/20/2024 10:30:00 AM Scheduled Provider: Location:[facility] Appointment Type:ACC POC Established Patient Appointment Date:03/10/2024 10:30:00 AM Scheduled Provider:MARCOS HARPER Location:[facility] Appointment Type:PC OV Future Scheduled Tests Laboratory* Prostate Specific Antigen 09/09/23 * Thyroid Stimulating Hormone 09/09/23 * A1C Hemoglobin 09/09/23 * Complete Blood Count 09/09/23 * Lipid Profile 09/09/23 * Vitamin D Level 09/09/23 * Complete Metabolic Panel 09/09/23 [facility] Evaluation noteNo assessment information available [facility] Work Phone: Evaluation note* Diagnosis Onset Date Resolution Status Chest pain acute Dyspnea acute Essential (primary) hypertension chronic Hyperlipidemia chronic Longstanding persistent atrial fibrillation chronic [facility] Work Phone: Hospital course Narrative No data available for this section [facility] Hospital Discharge instructions No data available for this section [facility] Hospital Discharge instructionsAmbulatory Orders* Phase II, Outpatient Cardiac Rehab Location: None Selected [facility] Work Phone: Progress note No data available for this section [facility] Reason for referral (narrative)No reason for [facility]: Summary Purpose Family History Relationship Condition Age at Onset Recorded Date/T daniel father Cardiac disease Unknown Hypertension Unknown Cerebrovascular accident (CVA) Unknown mother Hypertension Unknown Malignant neoplasm of breast Unknown Advance Directives Advance Directive Response Recorded Date/ Time Advance Directives No June 20, 2020 8:23am Living Will No August 09, 2020 6:03pm Power of Line Decorator No August 09 6:03pm Advance Directive Response Recorded Date/ Time Advance Directives No June 20, 2020 8:23am Advance Directive Response Recorded Date/ Time Advance Directives on File Yes November 29, 2024 9:47am Living Will Yes November 29, 2024 9 :47am Do you have a Healthcare Power of Line Decorator? No November 29, 2024 12:22pm Name of Medical Power of Line Decorator Jenny Bonds November 29, 2024 9:47am Advance Directives Yes November 29 9:47am Advance Directive Response Recorded Date/ Time Living Will No August 09, 2020 6:03pm Do you have a Healthcare Power of Line Decorator? No August 09, 2020 6:03pm Advance Directives on File Yes November 29, 2024 9:47am Living Will Yes November 29, 2024 9 :47am Do you have a Healthcare Power of Line Decorator? 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 August 20, [...] 2024 11:05am 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 September 17, [...] 2024 11:09am 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 November 05, [...] 2024 11:0 9am Atherosclerotic heart disease of [place] coronary a November 29, 2024 9:18am Atherosclerotic heart disease of [place] coronary a November 29, 2024 12:21pm Atherosclerotic heart disease of [place] coronary a November 29, 2024 3:23pm Atherosclerotic heart disease [place] coronary a November 30, 2024 7:01am Reason for Visit Admit Date Chest pain August 20, 2024 10: 02am CHF (congestive heart failure) July 10:02am Dyspnea August 20, 2024 10: 02am PVCs (premature ventricular contractions ) August 20, 2024 10:02am 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 August 20, [...] 2024 11:05am 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 September 17, [...] 2024 11:09am 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 November 05, [...] atrial fibrillat ion November 29, 2024 9:18am Chief Complaint Admit Date S/P OUSMANE 08/16August 20, 2024 10: 02am SOB August 20, 2024 11: 40am UNSPECIFIED ATRIAL FIBRILLATION August 11:33am UNSPECIFIED ATRIAL FIBRILLATION August 12:03pm 4 W FU September 17, 2024 11: 05am E-ORDER September 30, 2024 12:03p m 8 W FU November 05, 2024 11:0 9am Atherosclerotic heart disease of [place] coronary a November 29, 2024 12:21pm Atherosclerotic heart disease of [place] coronary a November 29, 2024 2:58pm Atherosclerotic heart disease of [place] coronary a November 29, 2024 3:23pm Atherosclerotic heart disease of [place] coronary a November 30, 2024 7:01am Atherosclerotic heart disease of [place] coronary a November 30, 2024 2:08pm Atherosclerotic heart disease [place] coronary a December 01, 2024 7:09am Atherosclerotic heart disease of [place] coronary a December 01, 2024 7:25am Reason for Visit Admit Date Chest pain August 20, 2024 10: 02am CHF (congestive heart failure) July 10:02am Dyspnea August 20, 2024 10: 02am PVCs (premature ventricular contractions ) August 20, 2024 10:02am 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 August 20, [...] 2024 11:05am 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 September 17, [...] 2024 11:09am 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 November 05, 2024 11:09am Essential (primary) hypertension November 052024 11:09am Hyperlipidemia November 05, 2024 11:0 9am Longstanding persistent atrial fibrillat ion November 05, 2024 11:09am Hypokalemia November 05, 2024 11:0 9am Abdominal pain November 29, 2024 2:58p m CAD (coronary artery disease) November 29, 2024 2:58pm Essential (primary) hypertension November 2:58pm Hyperlipidemia November 29, 2024 2:58p m Longstanding persistent atrial fibrillat ion November 29, 2024 2:58pm Stented coronary artery November 29, 2024 2 :58pm Chief Complaint Admit Date S/P OUSMANE 08/16August 20, 2024 10: 02am SOB August 20, 2024 11: 40am UNSPECIFIED ATRIAL FIBRILLATION August 11:33am UNSPECIFIED ATRIAL FIBRILLATION August 12:03pm 4 W FU September 17, 2024 11: 05am E-ORDER September 30, 2024 12:03p m 8 W FU November 05, 2024 11:0 9am Atherosclerotic heart disease of [place] coronary a November 29, 2024 12:21pm Atherosclerotic heart disease of [place] coronary a November 29, 2024 2:58pm Atherosclerotic heart disease of [place] coronary a November 29, 2024 3:23pm Atherosclerotic heart disease of [place] coronary a November 30, 2024 7:01am Atherosclerotic heart disease of [place] coronary a November 30, 2024 2:08pm Atherosclerotic heart disease of [place] coronary a December 01, 2024 7:09am Atherosclerotic heart disease of [place] coronary a December 01, 2024 7:25am Amb Documentation December 03, 2024 3:38 pm Cerebral infarction, unspecified December 082024 3:56pm Reason for Visit Admit Date Chest pain August 20, 2024 10: 02am CHF (congestive heart failure) July 10:02am Dyspnea August 20, 2024 10: 02am PVCs (premature ventricular contractions ) August 20, 2024 10:02am 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 August 20, 2024 10:02am Hypokalemia August 20, 2024 10: 02am Essential (primary) hypertension July 252024 10:02am Hyperlipidemia August 20, 2024 10: 02am Longstanding persistent atrial fibrillat ion August 20, 2024 10:02am Chest pain September 17, 2024 11: 05am CHF (congestive heart failure) August 11:05am Dyspnea September 17, 2024 11: 05am PVCs (premature ventricular contractions ) September 17, 2024 11:05am 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 September 17, 2024 11:05am Hypokalemia September 17, 2024 11: 05am Essential (primary) hypertension August 252024 11:05am Hyperlipidemia September 17, 2024 11: 05am Longstanding persistent atrial fibrillat ion September 17, 2024 11:05am Chest pain November 05, 2024 11:0 9am CHF (congestive heart failure) October 11:09am Dyspnea November 05, 2024 11:0 9am PVCs (premature ventricular contractions ) November 05, 2024 11:09am 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 November 05, 2024 11:09am Hypokalemia November 05, 2024 11:0 9am Essential (primary) hypertension November 052024 11:09am Hyperlipidemia November 05, 2024 11:0 9am Longstanding persistent atrial fibrillat ion November 05, 2024 11:09am Abdominal pain November 29, 2024 2:58p m CAD (coronary artery disease) November 29, 2024 2:58pm Essential (primary) hypertension November 2:58pm Hyperlipidemia November 29, 2024 2:58p m Longstanding persistent atrial fibrillat ion November 29, 2024 2:58pm Stented coronary artery November 29, 2024 2 :58pm Chief Complaint Admit Date S/P OUSMANE 08/16August 20, 2024 10: 02am SOB August 20, 2024 11: 40am UNSPECIFIED ATRIAL FIBRILLATION August 11:33am UNSPECIFIED ATRIAL FIBRILLATION August 12:03pm 4 W FU September 17, 2024 11: 05am E-ORDER September 30, 2024 12:03p m 8 W FU November 05, 2024 11:0 9am Atherosclerotic heart disease of [place] coronary a November 29, 2024 12:21pm Atherosclerotic heart disease of [place] coronary a November 29, 2024 2:58pm Atherosclerotic heart disease of [place] coronary a November 29, 2024 3:23pm Atherosclerotic heart disease of [place] coronary a November 30, 2024 7:01am Atherosclerotic heart disease of [place] coronary a November 30, 2024 2:08pm Atherosclerotic heart disease of [place] coronary a December 01, 2024 7:09am Atherosclerotic heart disease of [place] coronary a December 01, 2024 7:25am Amb Documentation December 03, 2024 3:38 pm Cerebral infarction, unspecified December 082024 3:56pm COPD December 16, 2024 1:11 pm 1 Y FU December 16, 2024 1:34 pm Additional Source Comments (unrecognized sect ion and content) No Status Records FoundNo Status Records FoundNo Status Records FoundNo Status Records Found INFORMATION SOURCE (unrecogn ized section and content) DATE CREATED AUTHOR 11/19/2017 [facility] DATE CREATED AUTHOR AUTHOR'S ORGANIZ ATION 01/28/2024 [facility] ([place]) DATE CREATED AUTHOR AUTHOR'S ORGANIZ ATION 09/12/2024 [facility] DATE CREATED AUTHOR AUTHOR'S ORGANIZ ATION 12/15/2024 [facility] Care Team (unrecognized sect ion and content) Team Status: Active Member Role Status Dates Rosalie Scott DIE CASTING SUPERVISOR, DIE CASTING SUPERVISOR-C Family Provider Active Marcos Harper DIE CASTING SUPERVISOR, DIE CASTING SUPERVISOR-C Primary Care Provider Active Team Status: Inactive Member Role Status Dates Ilene Anderson DIE CASTING SUPERVISOR, DIE CASTING SUPERVISOR-C Referring Provider Active Dr. Fco Aguilera MD Attending Provider Active Marcos Harper DIE CASTING SUPERVISOR, DIE CASTING SUPERVISOR-C Primary Care Provider Active Team Status: Active Member Role Status Dates Marcos Harper DIE CASTING SUPERVISOR, DIE CASTING SUPERVISOR-C Primary Care Provider Active Dr. Fco Aguilera MD Attending Provider Active Team Status: Inactive Member Role Status Dates Marcos Harper DIE CASTING SUPERVISOR, DIE CASTING SUPERVISOR-C Primary Care Provider Active Dr. Fco Aguilera MD Attending Provider, Referring Pro vider Active Team Status: Active Member Role Status Dates Dr. Jovany Brush MD Primary Care Provider Active Team Status: Inactive Member Role Status Dates Marcos Harper DIE CASTING SUPERVISOR, DIE CASTING SUPERVISOR-C Primary Care Provider Active Start: August 20, 2024 End: August 20, 2024 Marcos Harper DIE CASTING SUPERVISOR, DIE CASTING SUPERVISOR-C Referring Provider Active S tart: August 20, 2024 End: August 20, 2024 MAURO Ramos Attending Provider Active St art: August 20, 2024 End: August 20, 2024 Team Status: Inactive Member Role Status Dates Marcos Harper DIE CASTING SUPERVISOR, DIE CASTING SUPERVISOR-C Primary Care Provider Active Start: August 20, [...] Inactive Member Role Status Dates Marcos Harper DIE CASTING SUPERVISOR, DIE CASTING SUPERVISOR-C Referring Provider Active S tart: September 17, 2024 End: September 17, 2024 Maikel Liang PA Attending Provider Active St art: September 17, [...] Inactive Member Role/Relationship Status Dates Marcos Harper DIE CASTING SUPERVISOR, DIE CASTING SUPERVISOR-C Primary Care Provider Active Start: August 20, 2024 End: August 20, 2024 Marcos Harper NP, DIE CASTING SUPERVISOR-C Referring Provider Active S tart: August 20, 2024 End: August 20, 2024 MAURO Ramos Attending Provider Active St art: August 20, 2024 End: August 20, 2024 Team Status: Inactive Member Role/Relationship Status Dates Marcos Harper NP, DIE CASTING SUPERVISOR-C Primary Care Provider Active Start: August 20, [...] Inactive Member Role/Relationship Status Dates Marcos Harper DIE CASTING SUPERVISOR, DIE CASTING SUPERVISOR-C Referring Provider Active S tart: September 17, [...] Status: Active Member Role/Relationship Status Dates Dr. oJvany Brush MD Primary Care Provider Active Start: [...] Provider Active Star t: November 30, 2024 Team Status: Active Member Role/Relationship Status [...] Active Start: November 29, 2024 Team Status: Inactive Member Role/Relationship Status Dates Dr. Jovany Brush MD Primary Care Provider Active Start: November 29, 2024 End: December 01, 2024 Dr. Fco Aguilera MD Attending Provider Active S tart: November 29, 2024 End: December 01, 2024 Dr. Fco Aguilera MD Referring Provider Active S tart: November 29, 2024 End: December 01, 2024 MAURO Ramos Other Provider Active Start: November 29, 2024 End: December 01, 2024 Dr. Hira Mathias DO Other Provider Active Star t: November 29, 2024 End: December 01, 2024 Dr. Bryan Hernández MD Admit Provider Active Star t: November 29, 2024 End: December 01, 2024 Team Status: Active Member Role/Relationship Status Dates Dr. Jovany Brush MD Primary Care Provider Active Start: November 29, 2024 Dr. Fco Aguilera MD Attending Provider Active S tart: November 29, 2024 Team Status: Active Member [...] Provider Active Star t: November 30, 2024 Team Status: Active Member Role/Relationship Status Dates Dr. Jovany Brush MD Primary Care Provider Active Start: November 30, 2024 Dr. Fco Aguilera MD Referring Provider Active S tart: November 30, 2024 Dr. Fco Aguilera MD Other Provider Active Start : November 30, 2024 MAURO Ramos Other Provider Active Start: November 30, 2024 Dr. Hira Mathias DO Attending Provider Active Start: November 30, 2024 Dr. Hira Mathias DO Other Provider Active Star t: November 30, 2024 Dr. Bryan Hernández MD Admit Provider Active Star t: November 30, 2024 Team Status: Active Member Role/Relationship Status Dates Dr. Jovany Brush MD Primary Care Provider Active Start: December 01, 2024 Dr. Fco Aguilera MD Referring Provider Active S tart: December 01, 2024 Dr. Fco Aguilera MD Other Provider Active Start : December 01, 2024 MAURO Ramos Other Provider Active Start: December 01, 2024 Dr. Hira Mathias DO Attending Provider Active Start: December 01, 2024 Dr. Hira Mathias DO Other Provider Active Star t: December 01, 2024 Dr. Bryan Hernández MD Admit Provider Active Star t: December 01, 2024 Team Status: Active Member Role/Relationship Status Dates Dr. Jovany Brush MD Primary Care Provider Active Start: December 01, 2024 Dr. Fco Aguilera MD Attending Provider Active S tart: December 01, 2024 Dr. Fco Aguilera MD Referring Provider Active S tart: December 01, 2024 Dr. Fco Aguilera MD Other Provider Active Start : December 01, 2024 MAURO Ramos Other Provider Active Start: December 01, 2024 Dr. Hira Mathias DO Other Provider Active Star t: December 01, 2024 Dr. Bryan Hernández MD Admit Provider Active Star t: December 01, 2024 Team Status: Active Member Role/Relationship Status Dates Dr. Jovany Brush MD Primary Care Provider Active Start: December 03, 2024 Roma Gonzalez Attending Provider Active Start: 2024 Team Status: Inactive Member Role/Relationship Status Dates Dr. Jovany Brush MD Primary Care Provider Active Start: December 08, 2024 End: December 08, 2024 Dr. Jovany Brush MD Attending Provider Active Start: December 08, 2024 End: December 08, 2024 Dr. Jovany Brush MD Referring Provider Active Start: December 08, 2024 End: December 08, 2024 Team Status: Active Member Role/Relationship Status Dates Dr. Jovany Brush MD Primary Care Provider Active Start: December 16, 2024 Dr. Breanne Mejia MD Attending Provider Active Start: December 16, 2024 Dr. Breanne Mejia MD Referring Provider Active Start: December 16, 2024 Team Status: Inactive Member Role/Relationship Status Dates Marcos Harper DIE CASTING SUPERVISOR, DIE CASTING SUPERVISOR-C Referring Provider Active S tart: December 16, 2024 End: December 16, 2024 Dr. Fco Aguilera MD Attending Provider Active S tart: December 16, 2024 End: December 16, 2024 Dr. Jovany Brush MD Primary Care Provider Active Start: December 16, 2024 End: December 16, 2024 Goals (unrecognized section and content) Goals may be documented in a n alternate section Care Team (unrecognized sect ion and content) Care Team Personnel Name: MARCOS HARPER Position: P4 Advanced Practice Nurse Member Role: Primary Care Physician Address: Address: [address] [place] [address]- Name: Rashaad Hidalgo PT Position: P3 Scheduling - Senior Clerk Advanced Member Role: Other Name: PATO WEST MD Position: Physician Member Role: Bridges [employer] Buildings Supervisor Address: Address: [address] [place] [address]- [place] Name: FCO AGUILERA MD Member Role: Mobile Phone Salesperson Address: Address: [address] [place] [address]- [place] Name: BREANNE MEJIA MD Position: Physician Member Role: Summer Law Clerk Address: Address: [address] [place] [address]- Care Team Related Persons Name: JENNY BONDS Address: [facility] Care Team Personnel Name: MARCOS HARPER Position: P4 Advanced Practice Nurse Member Role: Primary Care Physician Address: Address: [address] [place] [address] Name: Rashaad Hidalgork Juliet PT Position: P3 Scheduling - Senior Clerk Advanced Member Role: Other Name: PATO WEST MD Position: Physician Member Role: Bridges And Buildings Supervisor Address: Address: [address] [place] [id number]- Name: FCO AGUILERA MD Member Role: Mobile Phone Salesperson Address: Address: [address] [place] [phone]- Name: BREANNE MEJIA MD Position: Physician Member Role: Summer Law Clerk Address: Address: [address] [place] [phone]- Care Team Related Persons Name: JENNY BONDS Brittanie Address: [facility] FOR RECORDS PERTAINING TO PATIENTS WHO ARE [...] BE BASED ON THE PRIMARY CLINICAL RECORDS. [employer] provides no warranty or guarantee of the accuracy or completeness of information in this document.
== END | disposition home or self-care (01) ==
LOC: CT 13:13
PROVIDERS: PCP Family Medicine Geriatric Medicine; Referring Provider Internal Medicine Pulmonary Disease; Visit Provider Internal Medicine Pulmonary Disease
DX: J44.1 Chronic obstructive pulmonary disease with (acute) exacerbation (principal)
CPT/HCPCS: 71250

== ENCOUNTER → 2024-12-22 | Outpatient (CLI) | payer MEDICARE, SELFPAY ==
--- NOTE | 2024-12-22 11:43 | SP.MBSS_ITS ---
Modified Barium Swallow Patient Information Study Date: 12/22/24 Study Time: 13:00 Direct Billable Minutes: 120 Total Minutes procedure & reportin Diagnosis: Dysphagia R13.10 Referring Physician: Jovany Brush Chi Reason for Referral: Assess swallow function, assess risk for aspiration, and determine recommendations for any necessary dysphagia interventions. Medical History: Pt has been following w/ [facility] for management of CVA s/p cardiac procedure per pt and daughter's report. Brain MRI 12/08/2024 revealed, 1. Small area of acute/subacute ischemia in the left milligan radiata measuring 12 mm. 2. Atrophy and minimal chronic small-vessel ischemic disease. Of note, pt had a prior CVA ~10-15 years ago, as well as Huber's Palsy ~30 years ago, which left residual facial droop. He also has known hx of hiatal hernia, GERD, and gastroparesis per daughter's report, which has been managed by [facility] GI team. Currently, he reports occ coughing w/ food and drink. Food and drinks feel as if they get caught in his throat, as well. He reports being very cautious when he eats and drinks. With [employer]ING [employer]ER, Colleen, oral motor exercises have been initiated given R lingual and orofacial paresis. Pt has been compensating with use of bolus hold, effortful swallows, and multiple swallows. He is on a soft diet due to chewing difficulty and difficulty w/ A-P movement. He is consuming thin liquids w/ no straws. [employer] recommended this MBSS to further assess swallow function, aspiration risk, and to determine any appropriate oropharyngeal exercises. 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 PER TRIAL): PENETRATION / ASPIRATION SCALE (JACOBSEN): 1 = does not enter airway 2 = enters airway/above vocal folds/ejected 3 = enters airway/above vocal folds/not ejected 4 = enters airway/contacts vocal folds/ejected 5 = enters airway/contacts vocal folds/not ejected 6 = enters airway/below vocal folds/ejected 7 = enters airway/below vocal folds/not ejected despite effort 8 = enters airway/below vocal folds/no effort VIDEOFLOROSCOPIC SCALE SCORE (JACOBSEN): Grade I = aspiration of material that has penetrated into the laryngeal vestibule, intact cough reflex Grade II = aspiration < 10 % of the bolus, intact cough reflex Grade III = aspiration of < 10 % of the bolus, reduced cough reflex or aspiration of > 10 % of the bolus, intact cough reflex Grade IV = aspiration of > 10 % of the bolus, reduced cough reflex Penetration-Aspiration Scale Score Thin Liquid via teaspoon: Result: 5= enters airways/contacts vocal folds/not ejected Thin Liquid via teaspoon Trial 2: Result: 4= enters airway/contacts vocal folds/ejected Thin Liquid via large single sip: cup: Result: 2= enter airway/above vocal folds/ejected [place] Thick Liquid via small single sip: cup: Result: 2= enter airway/above vocal folds/ejected Pudding via teaspoon: Result: 1= does not enter airway Comment: Esophageal screen - Complete clearance. 1/2 Cookie: Result: 1= does not enter airway Comment: Esophageal screen - Complete clearance. Thin Liquid via single sip: straw: Result: 8= enters airway/below vocal folds/no effort Comment: Cued cough and re-swallow to clear residues from previous trials Thin Liquid via small single sip: cup: Result: 3= enters airways/above vocal folds/not ejected Thin Liquid via small single sip: cup Effortful swallow: Result: 2= enter airway/above vocal folds/ejected Thin Liquid via small single sip: cup Effortful swallow Trial 2: Result: 7= enters airways/below vocal folds/not ejected despite effort Thin Liquid via small single sip: cup Chin tuck: Result: 3= enters airways/above vocal folds/not ejected Thin Liquid via small single sip: cup Chin tuck Trial 2: Result: 5= enters airways/contacts vocal folds/not ejected Comment: Cued cough and re-swallow to clear residues from previous trials Thin Liquid via small single sip: cup Right head turn: Result: 5= enters airways/contacts vocal folds/not ejected Thin Liquid via teaspoon Chin tuck: Result: 8= enters airway/below vocal folds/no effort Comment: Cued effortful swallow, pt swallowed w/ use of chin tuck Thin Liquid via teaspoon Effortful swallow: Result: 7= enters airways/below vocal folds/not ejected despite effort Comment: Weak, reflexive throat clear Cued cough and re-swallow to clear residues from previous trials [place] Thick Liquid via small single sip: cup Trial 2: Result: 2= enter airway/above vocal folds/ejected [place] Thick Liquid via small single sip: cup Trial 3: Result: 5= enters airways/contacts vocal folds/not ejected Thin Liquid via small single sip: cup w/ cues to take a sip, hold breath, then swallow: Result: 2= enter airway/above vocal folds/ejected Comment: Cued cough and re-swallow to clear residues from previous trials Thin Liquid via small single sip: cup w/ cues to take a sip, hold breath, then swallow Trial 2: Result: 2= enter airway/above vocal folds/ejected Oral Phase Labial Seal: Interlabial escape, no progression to anterior lip Tongue Control During Bolus Hold: Posterior escape of greater than half of bolus Bolus Preparation/Mastication: Slow prolonged chewing/mashing with complete recollection Bolus Transport/Lingual Motion: Slowed tongue motion Oral Residue: Residue collection on oral structures Pharyngeal Phase Initiation of Pharyngeal Swallow: Bolus head in pyriforms Soft Palate Elevation: Trace column of contrast/air between soft palate and pharyngeal wall Laryngeal Elevation: Partial superior movement thyroid cart/partial apprx aryt- epig petiole Anterior Hyoid Excursion: Partial anterior movement Epiglottic Movement: Complete inversion Laryngeal Vestibule Closure at Height of Swallow: Incomplete; narrow column of air/contrast in laryngeal vestibule Pharyngeal Stripping Wave: Present - diminished Pharyngoesophageal Segment Opening: Parital distension and partial duration; parital obstruction of flow Tongue Base Retraction: Narrow column of contrast between tongue base & post. pharyngeal wall Pharyngeal Residue: Collection of residue within or on pharyngeal structures Diagnosis/Impression Diagnosis: Moderate oropharyngeal dysphagia R13.12 MBS Impressions: The oral phase is primarily marked by... -Poor bolus control w/ liquids w/ posterior loss of >1/2 of majority of liquid boluses to the pyriform sinuses prior to swallow onset. Thin liquids via straw spilled to the vocal folds prior to swallow onset, resulting in aspiration during the swallow. -Very slowed and delayed tongue motion for A-P transport. The pharyngeal phase is primarily marked by... -Delayed swallow onset. -Decreased airway closure due to decreased anterior hyoid excursion w/ silent aspiration of thin liquids via straw and overt aspiration (reflexive cough and weak throat clears) of small cup sip w/ effortful swallow and small tsp sip w/ effortful swallow. -Trace-mild pharyngeal residues, which pt mostly cleared w/ independent use of a second swallow as needed. The esophageal phase is primarily marked by... -Small pouch-like collection of barium in the UES most noticeable during pudding trial. Retention of barium in the UES was minimal. Recommendations Diet: Easy to Chew Textures (Moisten Dry Textures) and Thin Liquids Compensatory Strategies: Small Bites, Small Sips (Take a sip, hold breath, then swallow - modified supraglottic swallow), No Straws, Slow Rate, Sitting upright and Remain sitting upright for 30 minutes after PO intake Recommend Repeat Modified Barium Swallow: Yes (4-8 weeks after implementation of oropharyngeal exercise program) Need for Skilled Speech Therapy Services: Yes Comment: -Train the patient in use of strategies to decrease risk for aspiration. -Ongoing assessment of diet tolerance of recommended textures. Monitor respiratory status closely. -Train the patient in a thorough oral care routine. -Train the patient in oropharyngeal exercise program to improve bolus control, swallow onset, airway closure, and pharyngeal motility (lingual resistance, Dominick, effortful). Education Completed: 1. Described result of evaluation., 2. Pt understands evaluation & agrees with goals and treatment plan., 4. Family/caregivers understand evaluation & agree w/ goals & tx plan. and 7. Pt requires further education on strategies & risks. Comment: Additional education provided re: 3 pillars of aspiration and PNA and the importance of having a thorough oral care regimen to decrease risk for aspiration related illness. Status Active ST Patient: Active Contact Information [facility] Speech Therapy:: Karlie Mata M.A. CCC-BLASTING COAL MINER? Speech-Language Pathologist?? [facility] [address] [place] [address]? [email or web address]?? [phone]
== END | disposition home or self-care (01) ==
LOC: RAD 10:05
PROVIDERS: PCP Family Medicine Geriatric Medicine; Referring Provider Family Medicine Geriatric Medicine; Visit Provider Family Medicine Geriatric Medicine
DX: R13.10 Dysphagia, unspecified (principal)
CPT/HCPCS: 74230; 92611

== ENCOUNTER → 2024-12-28 | Outpatient (CLI) | payer MEDICARE, SELFPAY ==
--- NOTE | 2024-12-28 17:20 | RAD_ITS ---
PROCEDURE: CHEST PA AND LATERAL 12/28/2024 REASON FOR EXAM: COUGH TECHNIQUE: CHEST PA AND LATERAL COMPARISON: AP chest of 11/29/2024. RAD/Chest PA and Lateral IMPRESSION: Right upper quadrant abdominal surgical clips are again seen. Prior coronary artery stenting is seen. Lungs appear clear of acute disease. No pleural effusion or pneumothorax is noted. The cardiomediastinal silhouette is within the normal range for age. No acute osseous process is seen. No evidence of acute cardiopulmonary disease Reading Location: [place] [id number]
[2024-12-28 18:23] LABS: Hematocrit 41.2 % (40-54); Hemoglobin 12.2 g/dL (13.0-16.5); Immature Granulocytes Count 0.070 X10^3/uL (0.0-0.0); Mean Corp Hgb Conc 29.6 g/dL (32-36); Mean Corpuscular Volume 73.3 fL (80-94); Mean Platelet Vol. 9.1 fl (6.2-12.0); NRBC Flagged by Analyzer 0 % (0-5); POSITIVE MORPHOLOGY YES; Platelet Count 376 K/mm3 (150-450); RBC Distribution Width CV 21.7 % (11.6-14.6); RBC Distribution Width SD 55.2 fl (35.1-43.9); Red Blood Count 5.62 M/mm3 (4.6-6.2); White Blood Count 9.5 K/mm3 (4.4-11.0)
[2024-12-28 18:47] LABS: Differential Indicated SCAN CRITERIA MET
[2024-12-28 18:56] LABS: AST(SGOT) 25 U/L (<=37); Alanine Aminotransfer ALT/SGPT 33 U/L (<=46); Albumin, Serum 3.7 g/dL (3.4-4.8); Alkaline Phosphatase 164 U/L (40-129); Anion Gap 12 (5-15); BUN 17 mg/dL (4-19); BUN/Creat Ratio 17.7 RATIO (10-20); CPK Total, Creatine Kinase 34 U/L (24-195); Calcium,Total 9.6 mg/dL (7.6-11.0); Carbon Dioxide 24.8 mmol/L (21.0-32.0); Chloride 99 mmol/L (98-108); Globulin 3.7 g/dL (2.2-4.2); Glucose 129 mg/dL (70-99); Potassium 4.8 mmol/L (3.3-5.1); Pro- Brain NATRIURETIC PEPTIDE 818 pg/mL (<=1800); Troponin T High Sensitivity 14 ng/L (<=22)
[2024-12-28 19:01] LABS: D-Dimer Quantitative (DVT/PE) 0.27 FEU/ug/m (0.27-0.49)
--- OUTSIDE RECORDS SUMMARY | 2024-12-28 19:43 | XMS RPT_ITS | CCD ---
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 Fco Aguilera Attending Provider [phone] Leroy TRAVEL PT, TRAVEL PT-C Marcos Primary Care Provider [phone] LEROY DATA SPECIALIST-JOSHUA, MARCOS Primary Care Physician [phone] BALTES DATA SPECIALIST-VISCOSE CELLAR CHARGE HAND, MARCOS Primary Care Unavailabl e BALTES DATA SPECIALIST-VISCOSE CELLAR CHARGE HAND, MARCOS Attending Unavailabl e BALTES DATA SPECIALIST-VISCOSE CELLAR CHARGE HAND, MARCOS Primary Care Unavailabl e BALTES DATA SPECIALIST-VISCOSE CELLAR CHARGE HAND, MARCOS Attending Unavailabl e BALTES DATA SPECIALIST-VISCOSE CELLAR CHARGE HAND, MARCOS Attending Unavailabl e BALTES DATA SPECIALIST-VISCOSE CELLAR CHARGE HAND, MARCOS Primary Care Unavailabl e BALTES DATA SPECIALIST-VISCOSE CELLAR CHARGE HAND, MARCOS Primary Care Unavailabl e BALTES DATA SPECIALIST-VISCOSE CELLAR CHARGE HAND, MARCOS Attending Unavailabl e BALTES DATA SPECIALIST-VISCOSE CELLAR CHARGE HAND, MARCOS Primary Care Unavailabl e BALTES DATA SPECIALIST-VISCOSE CELLAR CHARGE HAND, MARCOS Attending Unavailabl e BALTES DATA SPECIALIST-VISCOSE CELLAR CHARGE HAND, MARCOS Primary Care Unavailabl e BALTES DATA SPECIALIST-VISCOSE CELLAR CHARGE HAND, MARCOS Attending Unavailabl e BALTES DATA SPECIALIST-VISCOSE CELLAR CHARGE HAND, MARCOS Primary Care Unavailabl e BALTES DATA SPECIALIST-VISCOSE CELLAR CHARGE HAND, MARCOS Attending Unavailabl e BALTES DATA SPECIALIST-VISCOSE CELLAR CHARGE HAND, MARCOS Attending Unavailabl e BALTES DATA SPECIALIST-VISCOSE CELLAR CHARGE HAND, MARCOS Primary Care Unavailabl e JENNIFER CABELLO DO Attending Unavailable BALTES DATA SPECIALIST-VISCOSE CELLAR CHARGE HAND, MARCOS Primary Care Unavailabl e Baltes TRAVEL PT-C, Marcos Primary Care Provider 1([facility])[phone] Baltes TRAVEL PT-C, Marcos Referring Provider 1([facility])[phone] Maikel Ramirez Attending Provider [phone] Maikel Ramirez Referring Provider 1([facility])- [phone] Gonsalo BULLARD, Dr. Jovany Armas Primary Care Provider 1([facility] )[phone] Willy BULLARD, Dr. Eagle Attending Provider [phone] Gonsalo BULLARD, Dr. Jovany Armas Attending Provider Gonsalo BULLARD, Dr. Jovany Armas Referring Provider 1([facility])[phone] [id number] DATA SPECIALIST-VISCOSE CELLAR CHARGE HAND, JULIET Crow Admitting Unavaila ble PHYSICIAN, NONE Primary Care Unavailable CHRIS BULLARD, IFEANYI Attending Unavailable BALTES DATA SPECIALIST-VISCOSE CELLAR CHARGE HAND, MARCOS Attending Unavailabl e PHYSICIAN, NONE Primary Care Unavailable CRISTEL DATA SPECIALIST-AUTOMATIC EDGER, SONAM Tang Attending Unavail able BALTES DATA SPECIALIST-VISCOSE CELLAR CHARGE HAND, MARCOS Primary Care Unavailabl e BALTES DATA SPECIALIST-VISCOSE CELLAR CHARGE HAND, MARCOS Attending Unavailabl e BALTES DATA SPECIALIST-VISCOSE CELLAR CHARGE HAND, MARCOS Primary Care Unavailabl e BALTES DATA SPECIALIST-VISCOSE CELLAR CHARGE HAND, MARCOS Attending Unavailabl e BALTES DATA SPECIALIST-VISCOSE CELLAR CHARGE HAND, MARCOS Primary Care Unavailabl e Willy BULLARD, Dr. Eagle Referring Provider 1([facility]) [phone] Maikel Ramirez Other Provider 1([facility])-[phone] Hira Mathias DO Other Provider 1([facility])[phone] Fco Aguilera MD Other Provider 1([facility])[phone] Bryan Hernández MD Attending Provider 1([facility])[phone] Dr. Margarita Levy MD Attending Provider 1([facility])[phone] Dr. Margarita Levy MD Other Provider 1([facility])[phone] Fco Aguilera MD Referring Provider 1([facility]) -[phone] Maikel Ramirez Other Provider 1([facility])-[phone] Hira Mathias DO Other Provider 1([facility])[phone] Bryan Hernández MD Admit Provider 1([facility])[phone] Hira Mathias DO Attending Provider 1([facility])[phone] No, Roma Attending Provider Unavailable Roberto BULLARD, Dr. Breanne Ren Attending Provider Dr. Breanne Mejia MD, V Referring Provider Maikel Ramirez Attending Provider Demiter PA Maikel Referring Provider [phone] Leroy TRAVEL PT-C, Marcos Referring Provider Cam BULLARD, Dr. Avila Other Provider [phone] Gonsalo, Jovany Chi Primary Care Unavailable Marcos Harper NP Referring Unavailable Demiter, Maikel Attending Unavailable Gonsalo, Jovany Chi Referring Unavailable Gonsalo, Jovany Chi Primary Care Unavailable Demiter, Maikel Attending Unavailable Willy, Fco Referring Unavailable Belal, Farouk Attending Unavailable Gonsalo, Jovany Chi Primary Care Unavailable Demiter, Maikel Consulting Unavailable Willy, Fco Consulting Unavailable Willy, [place] Referring Unavailable Gonsalo, Jovany Chi Primary Care Unavailable Demiter, Maikel Consulting Unavailable Margarita Levy Attending Unavailable Margarita Levy Consulting Unavailable Willy, [place] Consulting Unavailable Gonsalo, Jovany Chi Attending Unavailable Gonsalo, Jovany Chi Referring Unavailable Gonsalo, Jovany Chi Primary Care Unavailable Gonsalo, Jovany Chi Attending Unavailable Gonsalo, Jovany Chi Referring Unavailable Gonsalo, Jovany Chi Primary Care Unavailable Gonsalo, Jovany Chi Primary Care Unavailable Breanne Mejia V Attending Unavailable Breanne Mejia V Referring Unavailable Gonsalo, Jovany Chi Primary Care Unavailable Demiter, Maikel Referring Unavailable Demiter, Maikel Attending Unavailable Gonsalo, Jovany Chi Referring Unavailable Gonsalo, Jovany Chi Primary Care Unavailable Gonsalo, Jovany Chi Attending Unavailable Gonsalo, Jovany Chi Primary Care Unavailable Demiter, Maikel Referring Unavailable Demiter, Maikel Attending Unavailable Willy, Fco Referring Unavailable Belal, Farouk Admitting Unavailable Gonsalo, Jovany Chi Primary Care Unavailable Hira Mathias Attending Unavailable Demiter, Maikel Consulting Unavailable Jopperi Hira Consulting Unavailable Willy, Fco Consulting Unavailable Willy, Fco Attending Unavailable Willy, Fco Referring Unavailable Gonsalo, Jovany Chi Primary Care Unavailable Willy, [place] Attending Unavailable Demiter, Maikel Consulting Unavailable Hira Mathias Consulting Unavailable Willy, Fco Consulting Unavailable Gonsalo, Jovany Chi Primary Care Unavailable Willy, [place] Attending Unavailable Gonsalo, Jovany Chi Primary Care Unavailable Nolt, Roma Attending Unavailable Gonsalo, Jovany Chi Primary Care Unavailable Willy, [place] Attending Unavailable Demiter, Maikel Referring Unavailable Demiter, Maikel Attending Unavailable Baltes TRAVEL PT, Marcos Referring Unavailable Baltes TRAVEL PT, Marcos Primary Care Unavailable Baltes TRAVEL PT, Marcos Primary Care Unavailable Sibilia, Breanne V Attending Unavailable Sibilia, Breanne V Referring Unavailable Demiter, Maikel Attending Unavailable Baltes TRAVEL PT, Marcos Primary Care Unavailable Demiter, Maikel Referring Unavailable Gonsalo, Jovany Chi Referring Unavailable Gonsalo, Jovany Chi Primary Care Unavailable Gonsalo, Jovany Chi Attending Unavailable Gonsalo, Jovany Chi Primary Care Unavailable Demiter, Maikel Referring Unavailable Demiter, Maikel Attending Unavailable Willy, Fco Referring Unavailable Belal, [place] Admitting Unavailable Gonsalo, Jovany Chi Primary Care Unavailable Willy, [place] Attending Unavailable Demiter, Maikel Consulting Unavailable Hira Mathias Consulting Unavailable Margarita Levy Consulting Unavailable Gonsalo, Jovany Chi Primary Care Unavailable Baltes TRAVEL PT, Marcos Referring Unavailable Willy, Fco Attending Unavailable Allergies Allergy Classification Reported Allergen(s) Allergy Type Date of Onset Reaction(s) Facility (16 sources) bacitracin / neomycin / polymyxin b; Translations: [bacitracin/neom ycin/polymyxin B topical] Drug Allergy UNSURE [facility] (20 sources) Codeine; Translations: [codeine] Drug Allergy 2 DIFFICULTY BREATHING, HEART RATE IRREGULAR [facility] (16 sources) Isosorbide; Translations: [isosorbide mononitrate] Drug Allergy Headache (finding) [facility] (16 sources) rivaroxaban; Translations: [rivaroxaban] Drug Allergy BLEEDING [facility] (13 sources) rivaroxaban Drug Allergy 2 Bleeding [facility] (2 sources) Ticagrelor Drug Allergy 5 SOB [facility] (1 source) Codeine Drug Allergy 5 [facility] (1 source) rivaroxaban Drug Allergy 5 [facility] (1 source) Ticagrelor Drug Allergy 5 [facility] Medications Current Medications Medication Drug Class(es) Dates Sig (Normalized) Sig (Original) acetaminophen 500 mg oral tablet (3 sources) Start: 01-20-2024 acetaminophen 500 mg oral tablet Dose : 1,000 mg = 2 tab(s), Oral, TID, PRN pain or fever, 0 Refill(s) Start Date: 01/20/24 Status: Ordered [id number] 200 actuat albuterol 0.09 mg/actuat metered dose inhaler (11 sources) beta2-Adrenergic Agonist Start: 10-31-2023 Albuterol Sulfate [...] QID, # 360 mL, 0 Refill(s), Pharmacy: [facility], 182, cm, 04/11/21 11:58:00 EST, Height, kg, 04/11/21 11:58:00 EST, Dosing Weight Start Date: 07/02/21 Status: Ordered Start: 07-02-2021 take 1 dose by inhal ation four times daily albuterol-ipratropium 2.5 mg-0.5 mg/3 mL inhalation solution Dose = 3 mL, Inhalation, QID, # 360 mL, 0 Refill(s), Pharmacy: [facility], 182, cm, 04/11/21 11:58:00 EST, Height, kg, 04/11/21 11:58:00 EST, Dosing Weight Start Date: 07/02/21 Status: Ordered Start: 02-15-2021 take 1 dose by inhal ation four times daily albuterol-ipratropium 2.5 mg-0.5 mg/3 mL inhalation solution Dose = 3 mL, Inhalation, QID, # 360 mL, 0 Refill(s), Pharmacy: [facility], 182, cm, 11/20/20 [...] wheezing, # 18 gram(s), 0 Refill(s), Pharmacy: [facility], 178, cm, 01/20/24 10:44:00 EDT, Height, kg, 01/20/24 10:34:00 EDT, Dosing Weight Start Date: 01/24/24 Status: Ordered Start: 12-16-2023 take 1 puff(s) by in halation every four hours as needed for wheezing albuterol MDI (90 mcg/inh) CFC free inhalation aerosol 1 puff(s), Inhalation, q4h, PRN as needed for wheezing, # 18 gram(s), 0 Refill(s), Pharmacy: [facility], 177.8, cm, 09/09/23 10:25:00 EDT, Height, kg, 09/09/23 10:25:00 EDT, Dosing Weight Start Date: 12/16/23 Status: Ordered Start: 06-04-2023 take 1 puff(s) by in halation every four hours as needed for wheezing albuterol MDI (90 mcg/inh) CFC free inhalation aerosol 1 puff(s), Inhalation, q4h, PRN as needed for wheezing, # 18 gram(s), 5 Refill(s), [facility]: [id number], 182.9, cm, 06/04/23 8:38:00 EST, Height, kg, [...] aspirin 81 mg delayed release oral tablet (20 sources) Platelet Aggregation Inhibitor, Nonsteroidal Anti-inflammatory Drug [...] # 60 tab(s), 0 Refill(s), [facility]: [facility] Start Date: 02/11/18 Status: Ordered atorvastatin 40 mg oral tablet (7 sources) HMG-CoA Reductase Inhibitor Start: 09-17-2024 take 1 tablet by mouth at bedtime Atorvastatin 40 mg tablet Active 40 mg PO AT BEDTIME September 17, 2024 12:00am Pepto-bismol (7 sources) Bismuth Start: 09-09-2023 Pepto-Bismol PRN as needed, 0 Refill(s) Start Date: 09/09/23 Status: Ordered Budesonide-Glycopyr -Formoterol (7 sources) Corticosteroid, beta2-Adrenergi c Agonist Start: 09-17-2024 Budesonide-Glycopy r-Formoterol (Breztri Aerosphere) 160-9-4.8 mcg/actuation HFA aerosol inhaler Active 2 NMA INHALATION TWICE A DAY September 17, 2024 12:00am 168 hr buprenorphine 0.02 mg/hr transdermal system (7 sources) Partial Opioid Agonist Start: 09-17-2024 apply [...] Status: Ordered clopidogrel 75 mg oral tablet (19 sources) P2Y12 Platelet Inhibitor Start: 12-03-2024 End: [...] cap(s), 0 Refill(s), 08/03/21 10:58:00 EST, Pharmacy: [facility] [address], 181.5, cm, 07/24/21 10:18:00 EST, Height, 100.2, [...] primary doctor empagliflozin 10 mg oral tablet (6 sources) Sodium-Glucose Cotransporter 2 Inhibitor Start: 10-27-2024 take 1 tablet by mouth once daily in the morning Empagliflozin (Jardiance) 10 mg tablet Active 10 mg PO EVERY MORNING 24 04October 27, 2024 12:00am fexofenadine hydrochloride 180 mg oral tablet (20 sources) Histamine-1 Receptor Antagonist Start: 08-20-2024 take 1 tablet by mouth every twenty-four hours Fexofenadine 180 mg tablet Active 180 mg PO Q24H August 20, 2024 12:00am Start: 02-19-2021 [place] [address] Allergy oral tablet Dose : 180 mg = 1 tab(s), Oral, Daily, # 30 tab(s), 0 Refill(s), Pharmacy: [facility] [place] [id number] [address] [facility], 182.5, cm, 02/19/21 9:32:00 EDT, Height, kg, [...] 17, 2024 11:16am Check with primary doctor Pdsytrzzsgk-Lfpokvovd-Whshum er (13 sources) Anticholinergic, Corticosteroid, beta2-Adrenergic Agonist Start: 09-06-2021 Qjftfmhdiwv-Kavxnagoy-Wdqfjo er 100-62.5-25 mcg blister with device Active [...] 40 mg PO TWICE A DAY 90 3 September 17, 2024 12:03pm Start: 10-04-2021 End: 09-17-2024 take 1 tablet by mouth once daily Furosemide (Lasix) 40 mg tablet Discontinued 40 mg PO DAILY September 15, 2023 8:05am September 17, 2024 [...] BID, # 180 cap(s), 1 Refill(s), Pharmacy: [facility], Neuropathic pain, 181.5, [...] lactobacillus combination no.9 (Adult 50 Plus Probiotic) (7 sources) Start: 09-17-2024 lactobacillus combination no.9 (Adult 50 Plus Probiotic) Active PO DAILY September 17, 2024 12:00am magnesium oxide 400 mg oral tablet (20 sources) Start: 12-23-2023 magnesium oxid e 400 mg oral tablet Dose : 400 mg = 1 tab(s), Oral, Daily, # 90 tab(s), 0 Refill(s), Pharmacy: [facility], 177.8, cm, 09/09/23 10:25:00 EDT, [...] tab(s), 3 Refill(s), 08/22/22 11:06:00 EDT, Pharmacy: [facility], 181, cm, 08/20/21 [...] October 31, 2023 12:00am Start: 07-17-2023 End: 06-07-2024 take 2 tablets by mouth twice daily [...] BID, # 60 tab(s), 11 Refill(s), Pharmacy: [facility], 182, cm, 11/20/20 [...] 12, 2020 2:54pm Check with primary doctor multivitamin,cn-lhgn-fuldnss s tablet (2 sources) Start: 05-08-2018 take 1 tablet by mouth once daily multivitamin,dz-arii-omjxhmjq tablet Active 1 TABLET PO DAILY May 08, 2018 1:00am 24 hr nicotine 0.583 mg/hr transdermal system (5 sources) Chol iner gic [facility] Start: 01-20-2024 apply 1 dose transderma [...] day(s), # 30 patch(es), 0 Refill(s), [facility]: [id number], Tobacco use, 177.8, cm, 09/09/23 10:25:00 EDT, [...] BID, # 180 cap(s), 3 Refill(s), Pharmacy: [facility], GERD (gastroesophageal reflux disease), [...] Refill(s), 09/17/22 12:29:00 EDT, [facility]acy: [facility] #[id number], Nausea, 180.3, cm, 08/27/22 11:39:00 EDT, Height Start Date: 08/28/22 Stop Date: 09/17/22 Status: Ordered Start: 07-15-2022 Zofran 4 mg or al tablet Dose : 4 mg = 1 tab(s), Oral, q6h, PRN Nausea/Vomiting, 0 Refill(s) Start Date: 07/15/22 Status: Ordered potassium gluconate 2.35 meq oral tablet (2 sources) Start: 12-16-2024 take 1 tablet by mouth once daily Potassium Gluconate 550 mg (90 mg) tablet Active 550 mg PO daily December 16, 2024 12:00am pregabalin 50 mg oral capsule (13 sources) Start: 12-16-2024 take 1 capsule by mouth once daily Pregabalin (Lyrica) 50 mg capsule Active 50 mg PO daily December 16, 2024 1:56pm Start: 08-20-2024 End: 12-16-2024 take 1 capsule by mouth twice daily Pregabalin (Lyrica) 50 mg capsule Discontinued 50 mg PO TWICE A DAY August 20, 2024 12:00am December 16, 2024 1:56pm spironolactone 25 mg oral tablet (7 sources) Aldosterone Antagonist Start: 09-21-2024 take 1 tablet by mouth once daily Spironolactone 25 mg tablet Active 25 mg PO daily 30 3 September 21, 2024 12:00am sucralfate 1000 mg oral tablet (9 sources) Aluminum Complex Start: 12-16-2024 take 1 [...] # 20 tab(s), 1 Refill(s), [facility], 182, cm, 11/20/20 9:32:00 EDT, Height, kg, 11/20/20 9:32:00 EDT, Dosing Weight Start Date: 11/20/20 Stop Date: 11/20/21 Status: Ordered terbinafine 250 mg oral tablet (1 source) Allylamine Antifungal Start: 08-27-2022 End: 10-08-2022 terbinafine 250 mg oral tablet Dose : 250 mg = 1 tab(s), Oral, qDay, X 42 day(s), # 42 tab(s), 0 Refill(s), 10/08/22 11:41:00 EDT, [id number], Onychomycosis, 180.3, cm, 08/27/22 11:39:00 EDT, Height Start Date: 08/27/22 Stop Date: 10/08/22 Status: Ordered traZODone hydrochloride 50 mg oral tablet (17 sources) Serotonin Reuptake Inhibitor Start: 12-28-2018 traZODone [...] swallow)., # 3 EA, 3 Refill(s), Pharmacy: [facility], 180.3, cm, 10/10/22 10:34:00 [...] swallow)., # 1 EA, 3 Refill(s), Pharmacy: [facility] ([facility]), 182, cm... Start Date: 01/03/22 Stop Date: 05/03/22 Status: Ordered Start: 07-24-2021 End: 11-21-2021 take 1 dose by mouth once daily Trelegy Ellipta 100 mcg-62.5 mcg-25 mcg/inh inhalation powder Dose = 1 puff(s), Inhalation, qDay, at the same time every day. Following administration, rinse mouth with water after use (do not swallow)., # 1 EA, 3 Refill(s), Pharmacy: [facility], 181.5, cm, 07/24/21 10:18:00 [...] pm, # 270 tab(s), 3 Refill(s), Pharmacy: [facility], 182, cm, 11/20/20 9:32:00 EDT, Height, kg, 11/20/20 9:32:00 EDT, Dosing Weight Start Date: 01/17/21 Status: Ordered ciprofloxacin 500 mg oral tablet (20 sources) Quinolone Antimicrobial Start: 08-09-2020 End: 12-11-2020 take 1 tablet by mouth twice daily Ciprofloxacin Hcl 500 MG tablet Discontinued 500 mg PO TWICE A DAY 10 0 August 09, 2020 12:00am December 11, 2020 [...] BID, # 100 gram(s), 3 Refill(s), Pharmacy: [facility], 181.3, cm, 12/13/19 9:41:00 EDT, Height, 93.2, kg, 07/03/20 9:57:00 EST, Dosing Weight Start Date: 07/12/20 Stop Date: 07/07/21 Status: Ordered Start: 07-12-2020 End: 07-07-2021 diclofenac 3% topical gel Ap ply 1 herb, Topical, BID, # 100 gram(s), 3 Refill(s), Pharmacy: [facility], 181.3, cm, 12/13/19 9:41:00 EDT, Height, 93.2, kg, 07/03/20 9:57:00 EST, Dosing Weight Start Date: 07/12/20 Stop Date: 07/07/21 Status: Ordered fluticasone propionate 0.05 mg/actuat metered dose nasal spray (18 sources) Corticosteroid Start: 12-12-2023 End: 01-11-2024 take 50 ug nasal route twice daily Flonase 50 mcg/inh nasal spray 50 mcg Dose = 1 spray(s), Nostril, each, BID, # 16 gram(s), 0 Refill(s), Pharmacy: [facility], Rhinitis, 177.8, cm, 09/09/23 10:25:00 [...] BID, # 16 gram(s), 0 Refill(s), [id number], Rhinitis, 177.8, cm, 09/09/23 10:25:00 EDT, Height, [...] BID, # 385 gram(s), 3 Refill(s), Pharmacy: [facility], Cream, 181, cm, [...] 20mg, # 60 tab(s), 0 Refill(s), [id number], Hypertension, 180.3, cm, 07/16/22 10:11:00 EST, Height [...] Daily, # 55 gram(s), 1 Refill(s), [facility] #[id number], Gel, 180.3, cm, 08/27/22 11:39:00 EDT, Height, [...] primary doctor Multivitamin,Tx-Iro n-Minerals (Complete Multivitamin) tablet (11 sources) Start: 05-08-2018 End: 09-17-2024 Multivitamin,Tx-Ir on-Minerals (Complete Multivitamin) tablet Discontinued 1 {tbl} PO DAILY May 08, 2018 1:00am September 17, 2024 11:17am Check with primary doctor Start: 05-08-2018 End: 09-17-2024 Multivitamin,Ma-Gvou-Hhqryyi s (Complete Multivitamin) tablet Discontinued 1 {tbl} PO DAILY May 08, 2018 1:00am September 17, 2024 11:17am Start: 05-08-2018 Multivitamin,T w-Dwhg-Hhynetqy (Complete Multivitamin) tablet Active 1 {tbl} PO DAILY May 08, 2018 1:00am potassium chloride 10 meq extended release oral capsule (13 sources) Start: 05-08-2018 End: 06-02-2020 take 1 [...] primary doctor ticagrelor 90 mg oral tablet (4 sources) Start: 12-01-2024 End: 12-03-2024 take 1 [...] qAM, # 30 cap(s), 0 Refill(s), [facility], 182.5, cm, 02/19/21 9:32:00 EDT, Height, kg, [...] supply, # 100 tab(s), 3 Refill(s), Pharmacy: [facility], 182, cm, 04/11/21 [...] qDay, # 30 tab(s), 3 Refill(s), [facility] [address] 182.5, cm, 02/19/21 9:32:00 EDT, Height, kg, 02/19/21 9:32:00 EDT, Dosing Weight Start Date: 04/04/21 Status: Ordered Problems Active Problems Problem Classification Problem Date Documented Da te Episodic/Chronic Abdominal hernia (16 sources) Hiatal hernia 08-18-2017 Episodic Abdominal pain (16 sources) Abdominal pain; Translations: [Unspecified abdominal pain] [...] Coronary atherosclerosis; Translations: [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rtery without angina pectoris] Onset: 5 08-09-2020 Chronic Coronary atherosclerosis and other heart disease (10 sources) Stented coronary artery; Translations: [Presence of coronary angioplasty implant and graft] Onset: 5 11-30-2024 Episodic Comment on above: Berthold [place] 3.0 X 50 mm RODO to mid [...] Translations: [Essential hypertension] Onset: 3 11-10-2016 Chronic Hyperplasia of prostate (20 sources) Benign prostatic hyperplasia; Translations: [Large prostate ] 12-24-2018 Chronic Hypertension with complications and secondary hypertension (1 source) Hypertensive heart disease with heart failure; Translations: [Hypertensive heart disease with heart failure] Onset: 5 Chronic Malignant neoplasm without specification of site (16 sources) Squamous cell carcinoma 12-24-2018 Chronic Mood disorders (1 source) Mood disorders; Translations: [Depression, unspecified] Onset: 5 Mycoses (8 sources) Onychomycosis 08-29-2022 Episodic Osteoarthritis (16 sources) Osteoarthritis 08-18-2017 Chronic Other aftercare (2 sources) alf (current) use of anticoagulants; Translations: [director long term care (current) use of anticoagulants] Onset: 5 Episodic Other aftercare (2 sources) Encounter for therapeutic drug level monitoring; Translations: [Encounter for therapeutic drug level monitoring] Onset: 5 Episodic Other circulatory disease (14 sources) History of cerebrovascular accident; Translations: [Personal history of transient ischemic attack (TIA), and cerebral infarction without residual deficits] 08-09-2020 Episodic Other connective tissue disease (8 sources) Neuropathic pain 08-29-2022 Episodic Other connective tissue disease (8 sources) Spasm 08-29-2022 Episodic Other disorders of stomach and duodenum (15 sources) Gastroparesis syndrome; Translations: [Gastroparesis] 07-17-2023 Episodic [...] source) Dysphagia, unspecified; Translations: [Dysphagia, unspecified] Onset: Episodic Other inflammatory condition of skin (8 sources) Rosacea 08-29-2022 Chronic Other liver diseases (16 sources) Inflammatory disease of liver 08-18-2017 Chronic Comment on above: PT UNSURE WHICH TYPE Other liver diseases (16 sources) Elevated liver enzymes level 03-01-2019 Episodic Other lower respiratory disease (13 sources) Dyspnea on exertion; Translations: [Other forms [...] DOES NOT U SE Residual codes; unclassified (13 sources) Edema; Translations: [Edema, unspecified] 09-19-2021 Episodic Residual codes; unclassified (9 sources) Hallucinations 07-16-2022 Episodic Residual codes; unclassified (1 source) Tobacco use; Translations: [Tobacco use] Onset: 5 Episodic Spondylosis; intervertebral disc disorders; other back problems (17 sources) Backache; Translations: [Low back pain] 11-19-2020 Episodic Substance-related disorders (13 sources) Nicotine dependence; Translations: [Nicotine dependence, unspecified, uncomplicated] 08-09-2020 Chronic Syncope (20 sources) Near syncope; Translations: [Syncope and collapse] 09-05-2021 Episodic Transient cerebral ischemia (13 sources) Transient cerebral ischemia; Translations: [Transient cerebral ischemic attack, unspecified] 08-09-2020 Chronic Unclassified (1 source) Unknown / UNK(Unknown) Onset: 7 Unclassified (16 sources) Catheter, device (physical object) 02-10-2020 Unclassified (10 sources) Polypharmacy 07-16-2022 Unclassified (5 sources) Presence of stent in coronary artery Unclassified (5 sources) Longstanding persistent atrial fibrillation Unclassified (5 sources) Multiple premature ventricular complexes Unclassified (5 sources) Z95.5 - Presence of coronary angioplasty implant and graft,I25.10 - 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rtery without angina pectoris,I48.11 - Longstanding persistent atrial fibrillation,I49.49 - Other premature depolarization Unclassified (1 source) Longstanding persistent atrial fibrillation; Translations: [Longstanding persistent atrial fibrillation] Onset: Past or Other Problems Problem Classification Problem Date Documented Da te Episodic/Chronic Cardiac dysrhythmias (17 sources) Palpitations; Translations: [Palpitations] Onset: 08-20-2024 12-24-2018 Episodic Fluid and electrolyte disorders (20 sources) Hypokalemia; Translations: [Hypokalemia] Onset: 09-03-2024 08-20-2024 Episodic Malaise and fatigue (15 sources) Fatigue; Translations: [Other fatigue] Onset: 09-17-2024 09-06-2021 Episodic Nonspecific chest pain (20 sources) Chest pain; Translations: [Chest pain, unspecified] Onset: 08-14-2024 09-06-2021 Episodic Other screening for suspected conditions (not mental disorders or infectious disease) (1 source) Encounter for screening for malignant neoplasm of respiratory organs; Translations: [Encounter for screening for malignant neoplasm of respiratory organs] Onset: 03-31-2024 Episodic Unclassified (1 source) R00.2 Onset: 11-29-2016 Results Test Name Value Interpretation Reference Range Facility Modified Barium Swallow Stud sarah 12-22-2024 Modified Barium Swallow Study [facility] Speech Pathology [address] [place] [address] Modified Barium Swallow Study MR#: [id number] Acct: [id number] Name: ANGI JACKSON Rep #: [id number] : 1950 74 From: Karlie Mata M.A., [facility] Modified Barium Swallow Patient Information Study Date: 12/22/24 Study Time: 13:00 Direct Billable Minutes: 120 Total Minutes procedure reportin Diagnosis: Dysphagia R13.10 Referring Physician: Jovany Brush Chi Reason for Referral: Assess swallow function, assess risk for aspiration, and determine recommendations for any necessary dysphagia interventions. Medical History: Pt has been following w/ [facility] for management of CVA s/p cardiac procedure per pt and daughter's report. Brain MRI 12/08/2024 revealed, 1. Small area of acute/subacute ischemia in the left milligan radiata measuring 12 mm. 2. Atrophy and minimal chronic small-vessel ischemic disease. 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 He also has known hx of hiatal hernia, GERD, and gastroparesis per daughter's report, which has been managed by [facility]. Currently, he reports occ coughing w/ food and drink. Food and drinks feel as if they get caught in his throat, as well. He reports being very cautious when he eats and drinks. With COUNTER HANDColleen, oral motor exercises have been initiated given R lingual and orofacial paresis. Pt has been compensating with use of bolus hold, effortful swallows, and multiple swallows. He is on a soft diet due to chewing difficulty and difficulty w/ A-P movement. He is consuming thin liquids w/ no straws. COUNTER HAND recommended this MBSS to further assess swallow function, aspiration risk, and to determine any appropriate oropharyngeal exercises. Medical History Gastroparesis 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rtery without angina pectoris Dyspnea on exertion Near syncope Positional lightheadedness Syncope History of CVA (cerebrovascular accident) TIA (transient ischemic attack) Longstanding persistent atrial fibrillation Nicotine dependence Hyperlipidemia Essential (primary) hypertension Obstructive sleep apnea Bladder diverticulum Squamous cell skin cancer Squamous cell cancer of skin of [place] Anxiety and depression GERD (gastroesophageal reflux disease) CVA (cerebral vascular accident) Osteoarthritis Current Diet Ordered: Soft, moist solids / Thin liquids Dentition: Upper Dentures and Lower Dentures Mental Status: WNL Respiratory Status: Oxygenating on Room Air Penetration-Aspirati on Scale Penetration-Aspirati on Scale: OBJECTIVE ASSESSMENT OF SWALLOW FUNCTION (QUANTITATIVE ??? PER TRIAL): PENETRATION / ASPIRATION SCALE (JACOBSEN): 1 = does not enter airway 2 = enters airway/above vocal folds/ejected 3 = enters airway/above vocal folds/not ejected 4 = enters airway/contacts vocal folds/ejected 5 = enters airway/contacts vocal folds/not ejected 6 = enters airway/below vocal folds/ejected 7 = enters airway/below vocal folds/not ejected despite effort 8 = enters airway/below vocal folds/no effort VIDEOFLOROSCOPIC SCALE SCORE (JACOBSEN): Grade I = aspiration of material that has penetrated into the laryngeal vestibule, intact cough reflex Grade II = aspiration < 10 % of the bolus, intact cough reflex Grade III = aspiration of < 10 % of the bolus, reduced cough reflex or aspiration of > 10 % of the bolus, intact cough reflex Grade IV = aspiration of > 10 % of the bolus, reduced cough reflex Penetration-Aspirati on Scale Score Thin Liquid via teaspoon: Result: 5= enters airways/contacts vocal folds/not ejected Thin Liquid via teaspoon Trial 2: Result: 4= enters airway/contacts vocal folds/ejected Thin Liquid via large single sip: cup: Result: 2= enter airway/above vocal folds/ejected [place] Thick Liquid via small single sip: cup: Result: 2= enter airway/above vocal folds/ejected Pudding via teaspoon: Result: 1= does not enter airway Comment: Esophageal screen - Complete clearance. 1/2 Cookie: Result: 1= does not enter airway Comment: Esophageal screen - Complete clearance. Thin Liquid via single sip: straw: Result: 8= enters airway/below vocal folds/no effort Comment: Cued cough and re-swallow to clear residues from previous trials Thin Liquid via small single sip: cup: Result: 3= enters airways/above vocal folds/not ejected Thin Liquid via small single sip: cup Effortful swallow: Result: 2= enter airway/above vocal folds/ejected Thin Liquid via small single sip: cup Effortful swallow Trial 2: Result: 7= enters airways/below vocal folds/not ejected despite effort Thin Liquid via small single sip: cup Chin tuck: Result: 3= enters airways/above vocal folds/not ejected Thin Liquid via small single sip: cup Chin tuck Trial 2: Resu (more content not included)... Normal [facility] Cardiology Visit Reporton Cardiology Visit Report [facility] [address] [place] [address] OFFICE VISIT Date of Service: 12/16/24 MR#: [id number] Acct: [id number] Name: ANGI JACKSON Rep #: [id number] : 1950 Provider: Dr. Fco Aguilera MD Age/Sex: 74/M Location: [facility] [place] [facility] Status: Signed HPI HPI History of Present Illness Details: Angi Jackson is a 74-year-old male who presents to office today for follow-up from his recent hospitalization. Patient has a history of atrial fibrillation with controlled ventricular response rate and hypertension. Patient underwent stress test 06/12/2020 that showed evidence of inferoapical ischemia with preserved ejection fraction. Patient proceeded with heart catheterization on 06/20/2020 that showed mild to moderate nonobstructive coronary artery disease with preserved ejection fraction. Patient was hospitalized at [facility] in July 2024 with CHF symptoms and [...] PVCs. 24-hour heart monitor demonstrated 9.6% ventricular ectopy.he had presented to the office complaining of chest discomfort sometimes pinching and other times not he had previously undergone a stress test in July 2023 demonstrating no ischemia. We went ahead and did a cardiac catheterization which demonstrated severe mid LAD disease with moderate calcification moderate nonobstructive circumflex disease and mild right coronary artery disease. He underwent a PCI of the left anterior descending artery. There was some plaque shifting of the diagonal vessel. He was kept in the ICU overnight. According to the family when he was discharged he did experience shortness of breath as well as more slurring in his speech and then he was subsequently seen by the primary care physician and an MRI performed which demonstrated evidence of an interim cerebrovascular accident in the left milligan radiata region. He is undergoing rehab at this particular time and he has had some chest discomfort which is sharp occasional palpitations and no pedal edema. He had been on ticagrelor but due to the shortness of breath this was changed to clopidogrel. Intake Vital Signs 10/31/23 11:33 11/29/24 12:21 12/16/24 13:44 Height 6 ft 6 ft 6 ft Weight: 211 lb BMI 28.6 BP 118/62 Blood Pressure Location Lt brachial Position Sitting Respiration 16 Pulse 46 L Pulse Source Monitor Pulse Oximetry (%) 98 Oxygen Delivery Method room air Intake Visit Reasons: 1 Y FU Inspector Metal Can Required: No Is patient in pain?: No Allergies ticagrelor (From Brilinta) Allergy (Intermediate, Verified 12/16/24 13:52) SOB codeine Allergy (Verified 12/16/24 13:51) HEART RATE IRREGULAR rivaroxaban (From Xarelto) Adverse Reaction (Verified 12/16/24 13:51) Bleeding Medications ???Medication ???Instructions ???Recorded ???Confirmed ???Type fluticasone fur. 100 mcg-umeclid 1 inh inhalation DAILY 09/06/21 History 62.5 mcg-vilant 25 mcg inhalat.powder duloxetine 60 mg capsule,delayed 60 mg PO DAILY 04/25/22 12/16/24 H istory release ondansetron HCl 4 mg tablet 4 mg PO QHS PRN nausea and vomitin g 07/17/23 12/16/24 History albuterol sulfate 90 mcg/actuation 1 inh inhalation Q8H PRN shortne ss 10/31/23 12/16/24 History aerosol inhaler of breath or wheezing fluticasone propionate 50 1 spray intranasal 10/31/23 History mcg/actuation nasal spray,suspension metoprolol tartrate 50 mg tablet 50 mg PO BID 10/31/23 12/16/24 His tory fexofenadine 180 mg tablet 180 mg PO Q24H 08/20/24 12/16/24 H istory isosorbide mononitrate 30 mg 30 mg PO DAILY #90 TABLETS 5 12/16/24 Rx tablet,extended release 24 hr apixaban 5 mg tablet (Eliquis) 5 mg PO BID 09/17/24 12/16/24 Hist ory atorvastatin 40 mg tablet 40 mg PO QHS 09/17/24 12/16/24 His tory budesonide 160 mcg-glycopyr 9 2 inh inhalation BID 09/17/2411/24 History mcg-formot 4.8 mcg/actuation HFA inhaler (Breztri Aerosphere) buprenorphine 20 mcg/hour weekly 1 patch transdermal QWEEK 09/17/24 12/16/24 History transdermal patch furosemide 40 mg tablet (Lasix) (more content not included)... Normal [facility] Chest without Contraston Chest without Contrast [facility] Imaging Services [address] [place] [address] Chest without Contrast MR#: [id number] Acct: [id number] Name: ANGI JACKSON Rep #: [id number] : 1950 M 74 From: Gregg canseco MD PCP: Dr. Jovany Brush MD Status: REG CLI Study: Chest without Contrast Date of Exam: 12/16/24 Exam# [id number] Ordering Dr: Breanne Mejia MD PROCEDURE: CHEST WITHOUT CONTRAST 12/16/2024 REASON FOR EXAM: COPD Former smoker. Patient has smoked half a pack per day for 50+ years. TECHNIQUE: Chest CT without contrast. Coronal and Sagittal reconstruction series were provided. One or more dose reduction techniques were used (e.g., Automated exposure control, adjustment of the mA and/or kV according to patient size, use of iterative reconstruction technique RADIATION DOSE SUMMARY: CTDlvol: 17.92 mGy DLP: 725.3 mGycm COMPARISON: Prior study dated March 10, 2024. FINDINGS: Hardware: None Lymph nodes: Small benign-appearing mediastinal lymph nodes. These are unchanged. Heart and Vasculature: The heart is nonenlarged. Coronary Artery Calcifications: Present Lungs and Airways: Stable mild increased markings at the lung bases suggestive of scarring. Stable mild increased markings in the right temporal lobe suggestive of linear scarring. Pleura: No pleural effusion. Upper Abdomen: Status post cholecystectomy. Bones: Degenerative changes of the thoracic spine. CT/Chest without Contrast IMPRESSION: Coronary artery calcification (CAC) is is present Stable examination. No suspicious pulmonary nodule seen. Reading Location: [facility] CC: Dr. Breanne Mejia MD; Dr. Jovany Brush MD Inspector Brake Lining: Signed Normal [facility] Brain without Contraston Brain without Contrast [facility] Imaging Services [address] [place] [address] Brain without Contrast MR#: [id number] Acct: [id number] Name: ANGI JACKSON Rep #: [id number] : 1950 M 74 From: Breanne Rios PCP: Dr. Jovany Brush MD Status: REG CLI Study: Brain without Contrast Date of Exam: 12/08/24 Exam# [id number] Ordering Dr: Jovany Brush MD PROCEDURE: BRAIN [...] Location: [facility] CC: Dr. Jovany Brush MD Inspector Brake Lining: Signed Normal [facility] Magnetic resonance imaging r eportOrdered By: Breanne Schneider on 12-08-2024 Study report [facility] Imaging Services [address] [place] [address] Brain without Contrast MR#: [id number] Acct: [id number] Name: ANGI JACKSON Rep #: [id number] : 1950 M 74 From: Bryant Schneider DO PCP: Dr. Jovany Brush MD Status: [facility] Study:Brain without Contrast Date of Exam: 12/08/24 Exam# [id number] Ordering Dr: Jovany Brush MD PROCEDURE: BRAIN [...] [facility] CC: Dr. Jovany Brush MD ~ Inspector Brake Lining: Signed [facility] 12 Lead EKGon 12-01-2024 12 Lead EKG [facility] Cardiovascular Services [address] [place] [address] 12 Lead EKG 12/01/24 0510 MR#: [id number] Acct: [id number] Name: ANGI JACKSON Rep #: [id number] : 1950 74 From: Fco Aguilera MD [...] UNCONFIRMED Confirmed by FCO AGUILERA MD ([id number]), electronic news gathering editor DAPHNE PINEDA ([id number]) on 12/02/2024 6:42:49 AM Referred By: Fco Aguilera Confirmed By: FCO AGUILERA MD 12/02/24 0642 Date Fco Aguilera MD CC: Dr. Fco Aguilera MD; Dr. Bryan Hernández MD; Dr. Jovany Brush MD Signed Normal [facility] Electrocardiogram reportOrde red By: Fco Aguilera on 12-01-2024 EKG study [facility] Cardiovascular Services [address] [place] [address] 12 Lead EKG 11/29/24 1233 MR#: [id number] Acct: [id number] Name: ANGI JACKSON Rep #:[id number] : 1950 74 From: Fco Aguilera MD [...] found Confirmed by FCO AGUILERA MD ([id number]), electronic news gathering editor DAPHNE PINEDA ([id number]) on 12/01/2024 7:17:28 AM Referred By: Fco Aguilera Confirmed By: FCO AGUILERA MD 12/01/24 0717 Date _ Fco Aguilera MD CC: Dr. Fco Aguilera MD; Dr. Bryan Hernández MD; Dr. Jovany Brush MD ~ Signed [facility] Work Phone: EKG study [facility] Cardiovascular Services [address] [place] [address] 12 Lead EKG 11/30/24 0514 MR#: [id number] Acct: [id number] Name: ANGI JACKSON Rep #:[id number] : 1950 74 From: Fco Aguilera MD Attending Dr: MD Дмитрий Farley: ADM IN Ordering Dr: Bryan Hernández MD [...] UNCONFIRMED Confirmed by FCO AGUILERA MD ([id number]), electronic news gathering editor DAPHNE PINEDA ([id number]) on 12/01/2024 7:17:45 AM Referred By: Fco Aguilera Confirmed By: FCO AGUILERA MD 12/01/24716 Date _ Fco Aguilera MD CC: Dr. Fco Aguilera MD; Dr. Bryan Hernández MD; Dr. Jovany Brush MD ~ Signed [facility] Work Phone: 12 Lead EKGon 11-30-2024 12 Lead EKG [facility] Cardiovascular Services [address] [place] [address] 12 Lead EKG 11/30/24 0514 MR#: [id number] Acct: [id number] Name: ANGI JACKSON Rep #: [id number] : 1950 74 From: Fco Aguilera MD [...] UNCONFIRMED Confirmed by FCO AGUILERA MD ([id number]), electronic news gathering editor DAPHNE PINEDA ([id number]) on 12/01/2024 7:17:45 AM Referred By: Fco Aguilera Confirmed By: FCO AGUILERA MD 12/01/24716 Fco Aguilera MD CC: Dr. Fco Aguilera MD; Dr. Bryan Hernández MD; Dr. Jovany Brush MD Signed [facility] Abd Decub and/or Erect(Martha blon 11-30-2024 Abd Decub and/or Erect([facility] Imaging Services [address] [place], [place] [address] Abd [facility] [id number] Acct: [id number] Name: ANGI JACKSON Rep #: [id number] : 1950 M 74 From: Gregg canseco MD PCP: Dr. Jovany Brush MD Status: ADM IN Study: Abd Decub and/or Erect(Portabl Date of Exam: 0 11/30/24 Exam# [id number] Ordering Dr: Hira Mathias DO PROCEDURE: ABD [...] is seen in the colon. Reading Location: [facility] CC: Dr. Hira Mathias DO; Dr. Jovany Brush MD Inspector Brake Lining: Signed [facility] Absolute lymphocyte countOrd ered By: Margarita Levy on 11-30-2024 Lymphocytes Auto (Unsp spec) [#/Vol] 1.40 10*3/uL 0.83-4.51 [facility] Absolute neutrophil countOrd ered By: Margarita Levy on 11-30-2024 Neutrophils (Bld) [#/Vol] 13.3 10*3/uL High 2.0-7.7 [facility] Anion gap in Serum or Plasma Ordered By: Bryan Hernández on 11-30-2024 Anion gap [Moles/Vol] 11 mmol/L 5-15 [facility] Automated lymphocyte count a s percentage of total leukocytesOrdered By: Margarita Levy on 11-30-2024 Lymphocytes/100 WBC Auto (Unsp spec) 8.7 % Low 19-41 [facility] BUN/creatinine ratioOrdered By: Bryan Hernández on 11-30-2024 Urea nitrogen/Creatinine [Mass ratio] 21.3 mg/mg High 10-20 [facility] Basophil percentageOrdered B y: Margarita Levy on 11-30-2024 Basophils/100 WBC (Bld) 0.5 % 0-1 [facility] Bedside Glucoseon 11-30-2024 FINGERSTICK GLU 163 mg/dL High 74-106 [facility] Comment on above: Result Comment: PETEY GEMENT OF PATIENT CARE PER NURSING PROTOCOL Performed By: #### L 501.080 #### [facility] [address] [facility] [address] FINGERSTICK GLU 155 mg/dL High [address] [place] [address] Comment on above: Result Comment: PETEY GEMENT OF PATIENT CARE PER NURSING PROTOCOL Performed By: #### L 501.080 #### [facility] [address] [place], [address] FINGERSTICK GLU 168 mg/dL High [address] [place] [address] Comment on above: Result Comment: PETEY GEMENT OF PATIENT CARE PER NURSING PROTOCOL Performed By: #### L 501.080 #### [facility] [address] [place], [address] Bilirubin, totalOrdered By: Bryan Hernández on 11-30-2024 Bilirubin [Mass/Vol] 1.50 mg/dL High 0.00-1.30 [facility] Blood manual differential co mment interpretation (narrative result)Ordered By: Margarita Levy on 11-30-2024 Manual differential comment Ld (Bld) [Interp] SCANNED [facility] CBC W/Diff, Automatedon 07-0 OVALOCYTE 1+ Normal [facility] Comment on above: Performed By: #### L 501.080 #### [facility] [address] [place], [address] TEAR DROP 1+ Normal [facility] Comment on above: Performed By: #### L 501.080 #### [facility] [address] [place], [address] Anisocytosis Ql (Bld) 2+ Normal [facility] Comment on above: Performed By: #### L 501.080 #### [facility] [address] [place], [address] PLT EST ADEQUATE Normal ADEQ [facility] Comment on above: Performed By: #### L 501.080 #### [facility] [address] [place], [address] SMEAR COMMENT SCANNED Normal [facility] Comment on above: Performed By: #### L 501.080 #### [facility] [address] [place], [address] Carbon dioxide, total [Moles /volume] in Central venous bloodOrdered By: Bryan Hernández on 11-30-2024 CO2 [Moles/Vol] 22.3 mmol/L 21.0-32.0 [facility] Chloride assayOrdered By: Cheryl Hernández on 11-30-2024 Chloride [Moles/Vol] 102 mmol/L 98-108 [facility] Comprehensive Metabolic Prof ilon 11-30-2024 Albumin [Mass/Vol] 3.7 g/dL Normal 3.4-4.8 [facility] Comment on above: Performed By: #### L 501.080 #### [facility] [address] [place], [address] Albumin/Globulin [Mass ratio] 1.2 {ratio} Normal 0.9-2.4 [facility] Comment on above: Performed By: #### L 501.080 #### [facility] [address] [place], [address] ALK PHOS 154 U/L High 40-129 [facility] Comment on above: Performed By: #### L 501.080 #### [facility] [address] [place], [address] ALT [Catalytic activity/Vol] 28 U/L Normal <=46 [facility] Comment on above: Performed By: #### L 501.080 #### [facility] [address] [place], [address] AST [Catalytic activity/Vol] 34 U/L Normal <=37 [facility] Comment on above: Performed By: #### L 501.080 #### [facility] [address] [place], [address] Bilirubin [Mass/Vol] 1.50 mg/dL High 0.00-1.30 [facility] Comment on above: Performed By: #### L 501.080 #### [facility] [address] [place], [address] BUN/CRE 21.3 RATIO High 10-20 [facility] Comment on above: Performed By: #### L 501.080 #### [facility] [address] [place], [address] Calcium [Mass/Vol] 9.2 mg/dL Normal 7.6-11.0 [facility] Comment on above: Performed By: #### L 501.080 #### [facility] [address] [place], [address] Chloride [Moles/Vol] 102 mmol/L Normal 98-108 [facility] Comment on above: Performed By: #### L 501.080 #### [facility] [address] [place], [address] CO2 [Moles/Vol] 22.3 mmol/L Normal 21.0-32.0 [facility] Comment on above: Performed By: #### L 501.080 #### [facility] [address] [place], [address] Creatinine [Mass/Vol] 0.91 mg/dL Normal 0.70-1.20 [facility] Comment on above: Performed By: #### L 501.080 #### [facility] [address] [place], [address] ECRCL 84.33 ml/min Normal 50-250 [facility] Comment on above: Performed By: #### L 501.080 #### [facility] [address] [place], [address] GAP 11 Normal 5-15 [facility] Comment on above: Performed By: #### L 501.080 #### [facility] [address] [place], [address] GFR/1.73 sq M.predicted among non-blacks MDRD (S/P/Bld) [Vol rate/Area] 88 mL/min/{1.73_m2} Normal >60 [facility] Comment on above: Result Comment: mL/m in/1.73m2 CKD-EPI Creatinine Equation (2020) Performed By: #### L 501.080 #### [facility] [address] [place], [address] Globulin (S) [Mass/Vol] 3.1 g/dL Normal 2.2-4.2 [facility] Comment on above: Performed By: #### L 501.080 #### [facility] [address] [place], [address] Glucose [Mass/Vol] 172 mg/dL High 70-99 [facility] Comment on above: Performed By: #### L 501.080 #### [facility] [address] [place], [address] Potassium [Moles/Vol] 4.8 mmol/L Normal 3.3-5.1 [facility] Comment on above: Performed By: #### L 501.080 #### [facility] [address] [place], [address] Sodium [Moles/Vol] 135 mmol/L Normal 133-145 [facility] Comment on above: Performed By: #### L 501.080 #### [facility] [address] [place], [address] T PROT 6.8 g/dL Normal 5.9-8.4 [facility] Comment on above: Performed By: #### L 501.080 #### [facility] [address] [place], [address] Urea nitrogen [Mass/Vol] 19 mg/dL Normal 4-19 [facility] Comment on above: Performed By: #### L 501.080 #### [facility] [address] [place], [address] Echocardiogram study reportO rdered By: Fco Aguilera on 11-30-2024 Study report [facility] Services [address] [place] [address] Echo Complete 11/29/242034 MR#: [id number] Acct: [id number] Name: ANGI JACKSON Rep #:[id number] : 1950 74 From: Fco Arriaga Attending [...] MD ~ Date Dictated: 11/29/242034 Date Transcribed: 11/30/241008 Inspector Brake Lining: Signed [facility] Work Phone: Eosinophil percentageOrdered By: Margarita Levy on 11-30-2024 Eosinophils/100 WBC (Bld) 0.4 % 0-5 [facility] Erythrocyte distribution wid th ratioOrdered By: Margarita Levy on 11-30-2024 Erythrocyte distribution width (RBC) [Ratio] 20.3 % High 11.6-14.6 [facility] Erythrocyte distribution wid th standard deviationOrdered By: Margarita Levy on 11-30-2024 Erythrocyte distribution width (RBC) [Ratio] 51.1 fl High 35.1-43.9 [facility] Glomerular filtration rate ( GFR) estimation/1.73 sq m using serum, plasma, or whole bOrdered By: Bryan Hernández on 11-30-2024 GFR/1.73 sq M.predicted among non-blacks MDRD (S/P/Bld) [Vol rate/Area] 88 mL/min/{1.73_m2} >60 [facility] Comment on above: mL/min/1.73m2 CKD-EP I Creatinine Equation (2020) Glucose measurement at [facility] deOrdered By: Fco Aguilera on 11-30-2024 Glucose [Mass/Vol] 163 mg/dL High 74-106 [facility] Comment on above: MANAGEMENT OF PATIEN T CARE PER NURSING PROTOCOL Glucose [Mass/Vol] 168 mg/dL High 74-106 [facility] Comment on above: MANAGEMENT OF PATIEN T CARE PER NURSING PROTOCOL Hematocrit Auto (Bld) [Volum e fraction]Ordered By: Margarita Levy on 11-30-2024 Hematocrit (Bld) [Volume fraction] 39.0 % Low 40-54 [facility] Hemoglobin A1con 11-30-2024 HbA1c (Bld) [Mass fraction] 8.5 % High <=5.6 [facility] Comment on above: Result Comment: Norm al < 5.7 % Prediabetic 5.7 - 6.4 % Diabetic >or= 6.5 % Please note range changes. Performed By: #### L 501.0889 #### [facility] [address] [place], [place] [address], [id number] Hemoglobin A1c percentageOrd ered By: Margarita Levy on 11-30-2024 HbA1c (Bld) [Mass fraction] 8.5 % High <5.7 [facility] Comment on above: Normal < 5.7 % Predi abetic 5.7 - 6.4 % Diabetic >or= 6.5 % Please note range changes. Hemoglobin measurementOrdere d By: Margarita Levy on 11-30-2024 Hemoglobin (Bld) [Mass/Vol] 11.9 g/dL Low 13.0-16.5 [facility] Immature granulocytes/100 WB C Auto (Bld)Ordered By: Margarita Levy on 11-30-2024 Immature granulocytes/100 WBC (Bld) 0.300 % 0.0-0.9 [facility] Comment on above: IG% - Immature Granu locytes (promyelocytes, myelocytes and metamyelocytes) > 1% indicates that a LEFT SHIFT is Present. Laboratory - Chemistry and C hemistry - challengeOrdered By: Bryan Hernández on 11-30-2024 AST [Catalytic activity/Vol] 34 U/L <38 [facility] - Hematology and Cell countsOrdered By: Margarita Levy on 11-30-2024 Anisocytosis Ql (Bld) 2+ [facility] MCV (mean corpuscular volume ) determinationOrdered By: Margarita Levy on 11-30-2024 MCV (RBC) [Entitic vol] 72.1 fL Low 80-94 [facility] Magnesiumon 11-30-2024 Magnesium [Mass/Vol] 2.2 mg/dL Normal 1.5-2.2 [facility] Comment on above: Performed By: #### L 501.2300, L501.5200 #### [facility] [address] [place] [address], [address] Magnesium measurement (mass/ volume)Ordered By: Christian Hernandez on 11-30-2024 Magnesium (Unsp spec) [Mass/Vol] 2.2 mg/dL 1.5-2.2 [facility] Mean corpuscular hemoglobin (MCH) determinationOrdered By: Margarita Levy on 11-30-2024 MCH (RBC) [Entitic mass] 22.0 pg Low 27.0-32.0 [facility] Mean corpuscular hemoglobin concentration (MCHC) determinationOrdered By: Margarita Levy on 11-30-2024 MCHC (RBC) [Mass/Vol] 30.5 g/dL Low 32-36 [facility] Mean platelet volume determi nationOrdered By: Margarita Levy on 11-30-2024 Platelet mean volume (Bld) [Entitic vol] 8.8 fL 6.2-12.0 [facility] Monocyte percentageOrdered B y: Margarita Levy on 11-30-2024 Monocytes/100 WBC (Bld) 7.2 % 0-10 [facility] Neutrophil percentageOrdered By: Margarita Levy on 11-30-2024 Neutrophils/100 WBC (Bld) 82.9 % High 47-70 [facility] Nucleated red blood cell per centageOrdered By: Margarita Levy on 11-30-2024 Nucleated RBC/100 WBC (Bld) [Ratio] 0 % 0-5 [facility] Ovalocyte detectionOrdered B y: Margarita Levy on 11-30-2024 Ovalocytes LM Ql (Bld) 1+ [facility] Phosphoruson 11-30-2024 Phosphate [Mass/Vol] 3.7 mg/dL Normal 2.7-4.5 [facility] Comment on above: Performed By: #### L 501.2300, L501.5200 #### [facility] [address] [place], [address] Platelet countOrdered By: Mauro Levy on 11-30-2024 Platelets (Bld) [#/Vol] 367 10*3/uL 150-450 [facility] Platelet estimateOrdered By: Margarita Levy on 11-30-2024 Platelets LM Ql (Bld) ADEQUATE ADEQ [facility] Potassium measurement (mass/ volume)Ordered By: Bryan Hernández on 11-30-2024 Potassium (Unsp spec) [Mass/Vol] 4.8 mmol/L 3.3-5.1 [facility] RBC Auto (Bld) [#/Vol]Ordere d By: Margarita Levy on 11-30-2024 RBC (Bld) [#/Vol] 5.41 10*6/uL 4.6-6.2 [facility] Serum creatinine measurement (mass/volume)Ordered By: Bryan Hernández on 11-30-2024 Creatinine [Mass/Vol] 0.91 mg/dL 0.70-1.20 [facility] Serum globulin measurementOr dered By: Bryan Hernández on 11-30-2024 Globulin (S) [Mass/Vol] 3.1 g/dL 2.2-4.2 [facility] Serum glucose measurement (m ass/volume)Ordered By: Bryan Hernández on 11-30-2024 Glucose [Mass/Vol] 172 mg/dL High 70-99 [facility] Serum or plasma alanine pugh otransferase (ALT) measurementOrdered By: Bryan Hernández on 11-30-2024 ALT [Catalytic activity/Vol] 28 U/L <47 [facility] Serum or plasma albumin werner urement (mass/volume)Ordered By: Bryan Hernández on 11-30-2024 Albumin [Mass/Vol] 3.7 g/dL 3.4-4.8 [facility] Serum or plasma albumin/glob ulin mass ratioOrdered By: Karjuni Hernández on 11-30-2024 Albumin/Globulin [Mass ratio] 1.2 {ratio} 0.9-2.4 [facility] Serum or plasma alkaline damien sphatase measurementOrdered By: Bryan Hernández on 11-30-2024 ALP [Catalytic activity/Vol] 154 U/L High 40-129 [facility] Serum or plasma calcium werner urement (mass/volume)Ordered By: Bryan Hernández on 11-30-2024 Calcium [Mass/Vol] 9.2 mg/dL 7.6-11.0 [facility] Serum or plasma urea nitroge n measurement (mass/volume)Ordered By: Bryan Hernández on 11-30-2024 Urea nitrogen [Mass/Vol] 19 mg/dL 4-19 [facility] Sodium levelOrdered By: Bunny Hernández on 11-30-2024 Sodium [Moles/Vol] 135 mmol/L 133-145 [facility] Teardrop cell detectionOrder ed By: Margarita Levy on 11-30-2024 Dacrocytes LM Ql (Bld) 1+ [facility] Total proteinOrdered By: Kar Hernández on 11-30-2024 Protein [Mass/Vol] 6.8 g/dL 5.9-8.4 [facility] White blood cell (WBC) count Ordered By: Margarita Levy on 11-30-2024 WBC (Bld) [#/Vol] 16.0 10*3/uL High 4.4-11.0 [facility] 12 Lead EKGon 11-29-2024 12 Lead EKG [facility] Cardiovascular Services [address] [place] [address] 12 Lead EKG 11/29/24 1233 MR#: [id number] Acct: [id number] Name: ANGI JACKSON Rep #: [id number] : 1950 74 From: Fco Aguilera MD [...] found Confirmed by FCO AGUILERA MD ([id number]), electronic news gathering editor DAPHNE PINEDA ([id number]) on 12/01/2024 7:17:28 AM Referred By: Fco Aguilera Confirmed By: FCO AGUIELRA MD 12/01/2417 Date Fco Aguilera MD CC: Dr. Fco Aguilera MD; Dr. Bryan Hernández MD; Dr. Jovany Brush MD Signed Normal [facility] ACT Activated Clotting Timeo n 11-29-2024 ACTk CLOT TIME 325 sec High 74-137 [facility] Comment on above: Performed By: #### L 9100.0100 #### [facility] [address] [place], [place], [id number] Basic Metabolic Profile (BMP )on 11-29-2024 BUN/CRE 21.7 RATIO High 10-20 [facility] Comment on above: Performed By: #### L 500.2500 #### [facility] [address] [place], [address] Calcium [Mass/Vol] 9.4 mg/dL Normal 7.6-11.0 [facility] Comment on above: Performed By: #### L 500.2500 #### [facility] [address] [place], [address] Chloride [Moles/Vol] 102 mmol/L Normal 98-108 [facility] Comment on above: Performed By: #### L 500.2500 #### [facility] [address] [place], [address] CO2 [Moles/Vol] 26.1 mmol/L Normal 21.0-32.0 [facility] Comment on above: Performed By: #### L 500.2500 #### [facility] [address] [place], [address] Creatinine [Mass/Vol] 0.96 mg/dL Normal 0.70-1.20 [facility] Comment on above: Performed By: #### L 500.2500 #### [facility] [address] [place], [address] ECRCL 80.13 ml/min Normal 50-250 [facility] Comment on above: Performed By: #### L 500.2500 #### [facility] [address] [place], [address] GAP 10 Normal 5-15 [facility] Comment on above: Performed By: #### L 500.2500 #### [facility] [address] [place], [address] GFR/1.73 sq M.predicted among non-blacks MDRD (S/P/Bld) [Vol rate/Area] 83 mL/min/{1.73_m2} Normal >60 [facility] Comment on above: Result Comment: mL/m in/1.73m2 CKD-EPI Creatinine Equation (2020) Performed By: #### L 500.2500 #### [facility] [address] [place], [address] Glucose [Mass/Vol] 155 mg/dL High 70-99 [facility] Comment on above: Performed By: #### L 500.2500 #### [facility] [address] [place], [address] Potassium [Moles/Vol] 4.7 mmol/L Normal 3.3-5.1 [facility] Comment on above: Performed By: #### L 500.2500 #### [facility] [address] [place], [address] Sodium [Moles/Vol] 139 mmol/L Normal 133-145 [facility] Comment on above: Performed By: #### L 500.2500 #### [facility] [address] [place], [address] Urea nitrogen [Mass/Vol] 21 mg/dL High 4-19 [facility] Comment on above: Performed By: #### L 500.2500 #### [facility] [address] [place], [address] Bedside Glucoseon 11-29-2024 FINGERSTICK GLU 168 mg/dL High 74-106 [facility] Comment on above: Result Comment: PETEY WELDON OF PATIENT CARE PER NURSING PROTOCOL Performed By: #### L 501.080 #### [facility] [address] [place], [address] CBC-Complete Blood Cnt No Di ffon 11-29-2024 Erythrocyte distribution width (RBC) [Ratio] 20.8 % High 11.6-14.6 [facility] Comment on above: Performed By: #### L 100.0500 #### [facility] [address] [place], [address] Hematocrit (Bld) [Volume fraction] 42.7 % Normal 40-54 [facility] Comment on above: Performed By: #### L 100.0500 #### [facility] [address] [place], [address] Hemoglobin (Bld) [Mass/Vol] 12.9 g/dL Low 13.0-16.5 [facility] Comment on above: Performed By: #### L 100.0500 #### [facility] [address] [place], [address] MCH (RBC) [Entitic mass] 22.0 pg Low 27.0-32.0 [facility] Comment on above: Performed By: #### L 100.0500 #### [facility] [address] [place], [address] MCHC (RBC) [Mass/Vol] 30.2 g/dL Low 32-36 [facility] Comment on above: Performed By: #### L 100.0500 #### [facility] [address] [place], [address] MCV (RBC) [Entitic vol] 72.7 fL Low 80-94 [facility] Comment on above: Performed By: #### L 100.0500 #### [facility] [address] [place], [address] Platelet mean volume (Bld) [Entitic vol] 8.9 fL Normal 6.2-12.0 [facility] Comment on above: Performed By: #### L 100.0500 #### [facility] [address] [place], [address] Platelets (Bld) [#/Vol] 388 10*3/uL Normal 150-450 [facility] Comment on above: Performed By: #### L 100.0500 #### [facility] [address] [place], [address] RBC (Bld) [#/Vol] 5.87 10*6/uL Normal 4.6-6.2 [facility] Comment on above: Performed By: #### L 100.0500 #### [facility] [address] [place], [address] RDW SD 51.9 fl High 35.1-43.9 [facility] Comment on above: Performed By: #### L 100.0500 #### [facility] [address] [place], [address] WBC (Bld) [#/Vol] 13.7 10*3/uL High 4.4-11.0 [facility] Comment on above: Performed By: #### L 100.0500 #### [facility] [address] [place], [address] CVS/PCIREPORTon 11-29-2024 CVS/PCIREPORT [facility] Services [address] [place] [address] MR#: [id number] Acct: [id number] Name: ANGI JACKSON Rep #: [id number] : 1950 74 From: Bryan Hernández MD Primary Care: Dr. Jovany Brush MD Status: [facility] Referring Dr: Fco Aguilera MD Sex: M [...] patient underwent cardiac catheterization by his primary experience specialist Dr. Aguilera I reviewed the angiographic films [...] sidebranch diagonal. Circumflex artery is nondominant with [place] cardiac moderate calcification and around 50% stenosis. RCA is dominant with mild calcification and mild luminal irregularity of around 30%. Based on his clinical presentation and the significant atherosclerotic lesion involving the mid LAD will proceed with interventional plan. Interventional equipment used 1. With 6 [place] EBU guide catheter 2. 0.014 180 cm extra floppy run-through guidewire 3. 2.5 x 12 mm balloon 4. 3 x 15 mm drug-eluting stent resolute Dar frontier. Medication used in the Assistant News Director Patient was given heparin infusion ACT level [...] the LAD was obtained in 2 views SW[place] caudal as well as OLSON cranial. Then we proceeded with a guidewire which crossed the lesion without difficulty This followed by balloon dilatation using 2.5 x 12 mm followed by placement of drug-eluting stent resolute frontier Berthold. And achieved excellent result. Patient's symptoms is [...] underwent successful PCI No complication in the Assistant News Director Recommendation will be the following #1 dual antiplatelet therapy with Brilinta 90 mg twice daily in addition to low-dose aspirin 2. To continue on Integrilin for 12 hours. 3. To maximize antianginal medications in the form of a beta-zuly, long-acting nitrate and possible Rimacillin. Patient to follow-up with his primary experience specialist for continuation of cardiac care. Bryan Hernández MD,[facility] fitness club manager 11/29/24 1230 Date Bryan Hernández MD CC: Dr. Fco Aguilera MD; Dr. Jovany Brush MD Date Dictated: 11/29/241220 Date Transcribed: 11/29/241220 Inspector Brake Lining: FB Signed Normal [facility] Cardiac catheterization repo rtOrdered By: Bryan Hernández on 11-29-2024 Cardiac catheterization study [facility] Cardiovascular Services [address] [place] [address] MR#: [id number] Acct: [id number] Name: ANGI JACKSON Rep #: [id number] : 1950 74 From: Bryan Hernández MD Primary Care: Dr. Jovany Brush MD Status : [facility] Referring Dr: Fco Aguilera MD Sex: M [...] patient underwent cardiac catheterization by his primary experience specialist Dr. Aguilera I reviewed the angiographic films [...] sidebranch diagonal. Circumflex artery is nondominant with [place] cardiac moderate calcification andaround 50% stenosis. RCA is dominant with mild calcification and mild luminal irregularity of around 30%. Based on his clinical presentation and the significant atherosclerotic lesion involving the mid LAD will proceed with interventional plan. Interventional equipment used 1. With 6 [place] EBU guide catheter 2. 0.014 180 cm extra floppy run-through guidewire 3. 2.5 x 12 mm balloon 4. 3 x 15 mm drug-eluting stent resolute Dar frontier. Medication used in the Assistant News Director Patient was given heparin infusion ACT level [...] the LAD was obtained in 2 views [place] caudal as well as OLSON cranial. Then we proceeded with a guidewire which crossed the lesion without difficulty This followed by balloon dilatation using 2.5 x 12 mm followed by placement of drug-eluting stent resolute frontier Dar. And achieved excellent result. Patient's symptoms is [...] underwent successful PCI No complication in the Assistant News Director Recommendation will be the following #1 dual antiplatelet therapy with Brilinta 90 mg twice daily in addition to low-dose aspirin 2. To continue on Integrilin for 12 hours. 3. To maximize antianginal medications in the form of a beta-zuly, long-acting nitrate and possible Rimacillin. Patient to follow-up with his primary experience specialist for continuation of cardiac care. Bryan Hernández MD,[facility] fitness club manager 11/29/24 1230 Date _ Bryan Hernández MD CC: Dr. Fco Aguilera MD; Dr. Jovany Brush MD ~ Date Dictated: 11/29/24 1221 Date Transcribed: 11/29/24 122 Inspector Brake Lining: NICOLÁS Signed [facility] Work Phone: Cardiac rehabilitation repor tOrdered By: Barry Hughes on 11-29-2024 Study report [facility] Cardiac Rehab [address] [place] [address] CR: Phase I Assessment MR#: [id number] Acct: [id number] Name: ANGI JACKSON Rep #:[id number] : 1950 74 From: Barry Hughes PCP: Dr. Jovany Brush MD DOS: Patient Communication Patient Information PHII Cardiac Rehab Discussed with Patient:: Yes Guide to Cardiac Rehab Given to Patient:: Yes Cardiac Rehab Facility Choice List Given to Patient:: Yes Communication to Cardiac Rehab Choice Program [facility] CR PHII:: Communication Given to CR Mechanic Driver:: Bryan Hernández Phase II Cardiac Rehab:: Yes Sessions:: 36 sessions - 3 days/wk, 12 weeks Cardiac Rehabilitation Info Program Information Cardiac Rehabilitation Program Information: Cardiac Rehab The cardiac rehab team at [facility] consists of highly skilled exercise [...] Cardiac Rehab program is Certified by the [place] [employer]io-Vascular and Pulmonary [employer] (AACVPR) and Accredited by the [place] [employer] through our Chest Pain [...] Cosigner Signature: Date _ CC: ~ Signed [facility] Chest 1 View (Portable)on Chest 1 View (Portable) [facility] Imaging Services [address] [place] [address] [id number] Chest 1 View (Portable) MR#: [id number] Acct: [id number] Name: ANGI JACKSON Rep #: [id number] : 1950 M 74 From: Romeo Arriaga PCP: Dr. Jovany Brush MD Status: [facility] Study: Chest 1 View (Portable) Date of Exam: 11/29/24 Exam# [id number] Ordering Dr: Margarita Levy MD PROCEDURE: CHEST 1 VIEW (PORTABLE) [...] evidence of acute cardiopulmonary disease. Reading Location: [address] CC: Dr. Margarita Levy MD; Dr. Jovany Brush MD Inspector Brake Lining: Signed Normal [facility] Echo Completeon 11-29-2024 Echo Complete [facility] [address] [place] [address] Echo Complete 11/29/242034 MR#: [id number] Acct: [id number] Name: ANGI JACKSON Rep #: [id number] : 1950 74 From: Fco Aguilera MD [...] Jovany Brush Chi Performed By: Mamie Del Rosario RDCS, RVT 11/30/24 1009 Date Fco Aguilera MD CC: Dr. Fco Aguilera MD; Dr. Margarita Levy MD; Dr. Jovany Brush MD Date Dictated: 11/29/242034 Date Transcribed: 11/30/24 1009 Inspector Brake Lining: Signed Normal [facility] H AND P Exam - Hospitaliston 11-29-2024 H&P Exam - Hospitalist [facility] Medical Records Department [address] [place] [address] H P Exam - Hospitalist 11/29/24 1523 MR#: [id number] Acct: [id number] Name: ANGI JACKSON Rep #: [id number] : 1950 74 From: Margarita Levy MD PCP: Dr. Jovany Brush MD Status:[facility] Location: ICU ICU05-1 HPI - General General Date of Admission: 11/29/24 Date of Service: 11/29/24 Chief Complaint: Elective heart cath status post stenting HPI Narrative ANGI JACKSON, is a 74 y/o M with a history of CVA, A-fib on Eliquis, hypertension, COPD, GERD, depression, chronic pain presented to [facility] 11/29/2024 for elective cath. He [...] noted and he reports that at baseline [facility] Medical History Gastroparesis 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rtery without angina pectoris Dyspnea on [...] Plus Probiotic] sucralfate 1 gram tablet PO 04/25/25 Unknown History spironolactone 25 mg tablet 25 [...] H/O abuse (more content not included)... Normal [facility] L503.7505on 11-29-2024 Natriuretic peptide B (Bld) [Mass/Vol] 531 pg/mL Normal <=1800 [facility] Comment on above: Result Comment: Hear t Failure Unlikely: < 300 pg/mL Heart Failure Likely < 50 Years: > 450 pg/mL 50-75 Years: > 900 pg/mL >75 Years: > 1800 pg/mL Performed By: #### L 503.7505 #### [facility] [address] [place], [place], [id number] Natriuretic peptide.B prohor tatyana N-Terminal [Mass/volume] in Serum or PlasmaOrdered By: Margarita Levy on 11-29-2024 Natriuretic peptide.B prohormone N-Terminal [Mass/Vol] 531 pg/mL <1800 [facility] Comment on above: Heart Failure Unlike ly: < 300 pg/mLHeart Failure Likely< 50 Years: > 450 pg/mL50-75 Years: > 900 pg/mL>75 Years: > 1800 pg/mL Activated partial thrombopla stin time (aPTT) in platelet poor plasma by coagulation aOrdered By: Maikel Liang on 11-19-2024 aPTT Coag (PPP) [Time] 29.5 s 24.1-36.2 [facility] Basic Metabolic Profile (BMP )on 11-19-2024 BUN/CRE 18.6 RATIO Normal 10-20 [facility] Comment on above: Performed By: #### L 500.2500 #### [facility] [address] [place], [address] Calcium [Mass/Vol] 9.3 mg/dL Normal 7.6-11.0 [facility] [facility] Comment on above: Performed By: #### L 500.2500 #### [facility] [address] [place], [address] Chloride [Moles/Vol] 97 mmol/L Low 98-108 [facility] Comment on above: Performed By: #### L 500.2500 #### [facility] [address] [place], [address] CO2 [Moles/Vol] 25.2 mmol/L Normal 21.0-32.0 [facility] Comment on above: Performed By: #### L 500.2500 #### [facility] [address] [place], [address] Creatinine [Mass/Vol] 1.29 mg/dL High 0.70-1.20 [facility] Comment on above: Performed By: #### L 500.2500 #### [facility] [address] [place], [address] GAP 11 Normal 5-15 [facility] Comment on above: Performed By: #### L 500.2500 #### [facility] [address] [place], [address] GFR/1.73 sq M.predicted among non-blacks MDRD (S/P/Bld) [Vol rate/Area] 58 mL/min/{1.73_m2} Low >60 [facility] Comment on above: Result Comment: mL/m in/1.73m2 CKD-EPI Creatinine Equation (2020) Performed By: #### L 500.2500 #### [facility] [address] [place], [address] Glucose [Mass/Vol] 140 mg/dL High 70-99 [facility] Comment on above: Performed By: #### L 500.2500 #### [facility] [address] [place], [address] Potassium [Moles/Vol] 5.2 mmol/L High 3.3-5.1 [facility] Comment on above: Performed By: #### L 500.2500 #### [facility] [address] [place], [address] Sodium [Moles/Vol] 133 mmol/L Normal 133-145 [facility] Comment on above: Performed By: #### L 500.2500 #### [facility] [address] [place], [address] Urea nitrogen [Mass/Vol] 24 mg/dL High 4-19 [facility] Comment on above: Performed By: #### L 500.2500 #### [facility] [address] [place], [address] CBC W/Diff, Automatedon 10-25 Anisocytosis Ql (Bld) 1+ Normal [facility] Comment on above: Performed By: #### L 500.2500 #### [facility] [address] [place], [address] International normalized rat io (INR) calculationOrdered By: Maikel Liang on 11-19-2024 INR Coag (Bld) [Relative time] 1.3 {INR} [facility] Partial Thromboplast Timeon 11-19-2024 aPTT Coag (Bld) [Time] 29.5 s Normal 24.1-36.2 [facility] Comment on above: Performed By: #### L 500.2500 #### [facility] [address] [place], [address] Prothrombin Time w/INRon INR Coag (PPP) [Relative time] 1.3 {INR} Normal [facility] Comment on above: Performed By: #### L 500.2500 #### [facility] [address] [place], [address] PT Coag (PPP) [Time] 16.1 s High 11.7-14.9 [facility] Comment on above: Performed By: #### L 500.2500 #### [facility] [address] [place], [address] Prothrombin timeOrdered By: Maikel Liang on 11-19-2024 PT Coag (PPP) [Time] 16.1 s High 11.7-14.9 [facility] Cardiology Visit Reporton Cardiology Visit Report [facility] [address] [place], [place] [address] OFFICE VISIT Date of Service: 11/05/24 MR#: [id number] Acct: [id number] Name: ANGI JACKSON Rep #: [id number] : 1950 Provider: MAURO Ramos Age/Sex: 74/M Location: [facility] [place] [facility] Status: Signed HPI HPI History of [...] preserved ejection fraction. Patient was hospitalized at [facility] in July 2024 with CHF symptoms and [...] Monitor Intake Visit Reasons: 8 W FU Inspector Metal Can Required: No Accompanied by: Daughter Is patient [...] buprenorphine 20 (more content not included)... Normal [facility] Absolute lymphocyte countOrd ered By: Maikel Liang on 09-30-2024 Lymphocytes Auto (Unsp spec) [#/Vol] 1.38 10*3/uL 0.83-4.51 [facility] Absolute neutrophil countOrd ered By: Maikel Liang on 09-30-2024 Neutrophils (Bld) [#/Vol] 11.0 10*3/uL High 2.0-7.7 [facility] Anion gap in Serum or Plasma Ordered By: Maikel Liang on 09-30-2024 Anion gap [Moles/Vol] 12 mmol/L 5-15 [facility] Automated lymphocyte count a s percentage of total leukocytesOrdered By: Maikel Liang on 09-30-2024 Lymphocytes/100 WBC Auto (Unsp spec) 10.0 % Low 19- [facility] BUN/creatinine ratioOrdered By: Maikeltashi Liang on 09-30-2024 Urea nitrogen/Creatinine [Mass ratio] 18.7 mg/mg - [facility] Basic Metabolic Profile (BMP )on 09-30-2024 BUN/CRE 18.7 RATIO Normal - [facility] Comment on above: Performed By: #### L 500.2500 #### [facility] [address] [place], [address] Calcium [Mass/Vol] 9.5 mg/dL Normal 7.6-11.0 [facility] Comment on above: Performed By: #### L 500.2500 #### [facility] [address] [place], [address] Chloride [Moles/Vol] 102 mmol/L Normal 98-108 [facility] Comment on above: Performed By: #### L 500.2500 #### [facility] [address] [place], [address] CO2 [Moles/Vol] 23.8 mmol/L Normal 21.0-32.0 [facility] Comment on above: Performed By: #### L 500.2500 #### [facility] [address] [place], [address] Creatinine [Mass/Vol] 1.07 mg/dL Normal 0.70-1.20 [facility] Comment on above: Performed By: #### L 500.2500 #### [facility] [address] [place], [address] GAP 12 Normal 5-15 [facility] Comment on above: Performed By: #### L 500.2500 #### [facility] [address] [place], [address] GFR/1.73 sq M.predicted among non-blacks MDRD (S/P/Bld) [Vol rate/Area] 72 mL/min/{1.73_m2} Normal >60 [facility] Comment on above: Result Comment: mL/m in/1.73m2 CKD-EPI Creatinine Equation (2020) Performed By: #### L 500.2500 #### [facility] [address] [place], [address] Glucose [Mass/Vol] 117 mg/dL High 70-99 [facility] Comment on above: Performed By: #### L 500.2500 #### [facility] [address] [facility] [place], [address] Potassium [Moles/Vol] 4.8 mmol/L Normal 3.3-5.1 [facility] Comment on above: Performed By: #### L 500.2500 #### [facility] [address] [facility] [place], [address] Sodium [Moles/Vol] 137 mmol/L Normal 133-145 [facility] Comment on above: Performed By: #### L 500.2500 #### [facility] [address] [place], [address] Urea nitrogen [Mass/Vol] 20 mg/dL High 4-19 [facility] Comment on above: Performed By: #### L 500.2500 #### [facility] [address] [facility] [place], [address] Basophil percentageOrdered B y: Maikel Demiter on 09-30-2024 Basophils/100 WBC (Bld) 0.8 % 0-1 [facility] CBC W/Diff, Automatedon 05-0 8-2024 Absolute Lymph 1.38 X10 3/uL Normal 0.83-4.51 [facility] Comment on above: Performed By: #### L 500.2500 #### [facility] [address] [place], [address] Absolute Neut 11.0 X10 3/uL High 2.0-7.7 [facility] Comment on above: Performed By: #### L 500.2500 #### [facility] [address] [place], [address] Basophils/100 WBC (Bld) 0.8 % Normal 0-1 [facility] Comment on above: Performed By: #### L 500.2500 #### [facility] [address] [place], [address] Eosinophils/100 WBC (Bld) 1.0 % Normal 0-5 [facility] Comment on above: Performed By: #### L 500.2500 #### [facility] [address] [place], [address] Erythrocyte distribution width (RBC) [Ratio] 18.2 % High 11.6-14.6 [facility] Comment on above: Performed By: #### L 500.2500 #### [facility] [address] [place], [address] Hematocrit (Bld) [Volume fraction] 37.8 % Low 40-54 [facility] Comment on above: Performed By: #### L 500.2500 #### [facility] [address] [place], [address] Hemoglobin (Bld) [Mass/Vol] 11.3 g/dL Low 13.0-16.5 [facility] Comment on above: Performed By: #### L 500.2500 #### [facility] [address] [place], [address] IG% 0.700 Normal 0.0-0.9 [facility] Comment on above: Result Comment: IG% - Immature Granulocytes (promyelocytes, myelocytes and metamyelocytes) > 1% indicates that a LEFT SHIFT is Present. Performed By: #### L 500.2500 #### [facility] [address] [place], [address] Lymphocytes/100 WBC (Bld) 10.0 % Low 19-41 [facility] Comment on above: Performed By: #### L 500.2500 #### [facility] [address] [place], [address] MCH (RBC) [Entitic mass] 22.2 pg Low 27.0-32.0 [facility] Comment on above: Performed By: #### L 500.2500 #### [facility] [address] [place], [address] MCHC (RBC) [Mass/Vol] 29.9 g/dL Low 32-36 [facility] Comment on above: Performed By: #### L 500.2500 #### [facility] [address] [place], [address] MCV (RBC) [Entitic vol] 74.1 fL Low 80-94 [facility] Comment on above: Performed By: #### L 500.2500 #### [facility] [address] [place], [address] Monocytes/100 WBC (Bld) 7.4 % Normal 0-10 [facility] Comment on above: Performed By: #### L 500.2500 #### [facility] [address] [place], [address] Neutrophils/100 WBC (Bld) 80.1 % High 47-70 [facility] Comment on above: Performed By: #### L 500.2500 #### [facility] [address] [place], [address] Nucleated RBC (Bld) [#/Vol] 0 10*3/uL Normal 0-5 [facility] Comment on above: Performed By: #### L 500.2500 #### [facility] [address] [place], [address] Platelet mean volume (Bld) [Entitic vol] 9.1 fL Normal 6.2-12.0 [facility] Comment on above: Performed By: #### L 500.2500 #### [facility] [address] [place], [address] Platelets (Bld) [#/Vol] 427 10*3/uL Normal 150-450 [facility] Comment on above: Performed By: #### L 500.2500 #### [facility] [address] [place], [address] RBC (Bld) [#/Vol] 5.10 10*6/uL Normal 4.6-6.2 [facility] Comment on above: Performed By: #### L 500.2500 #### [facility] [address] [place], [address] RDW SD 47.7 fl High 35.1-43.9 [facility] Comment on above: Performed By: #### L 500.2500 #### [facility] [address] [place], [address] WBC (Bld) [#/Vol] 13.7 10*3/uL High 4.4-11.0 [facility] Comment on above: Performed By: #### L 500.2500 #### [facility] [address] [place], [address] Carbon dioxide, total [Moles /volume] in Central venous bloodOrdered By: Maikel Liang on 09-30-2024 CO2 [Moles/Vol] 23.8 mmol/L 21.0-32.0 [facility] Chloride assayOrdered By: Mary Kate Liang on 09-30-2024 Chloride [Moles/Vol] 102 mmol/L 98-108 [facility] Eosinophil percentageOrdered By: Maikel Liang on 09-30-2024 Eosinophils/100 WBC (Bld) 1.0 % 0-5 [facility] Erythrocyte distribution wid th ratioOrdered By: Maikel Liang on 09-30-2024 Erythrocyte distribution width (RBC) [Ratio] 18.2 % High 11.6-14.6 [facility] Erythrocyte distribution wid th standard deviationOrdered By: Maikeltashi Liang on 09-30-2024 Erythrocyte distribution width (RBC) [Ratio] 47.7 fl High 35.1-43.9 [facility] Glomerular filtration rate ( GFR) estimation/1.73 sq m using serum, plasma, or whole bOrdered By: Maikeltashi Liang on 09-30-2024 GFR/1.73 sq M.predicted among non-blacks MDRD (S/P/Bld) [Vol rate/Area] 72 mL/min/{1.73_m2} >60 [facility] Comment on above: mL/min/1.73m2 CKD-EP I Creatinine Equation (2020) Hematocrit Auto (Bld) [Volum e fraction]Ordered By: Maikeltashi Liang on 09-30-2024 Hematocrit (Bld) [Volume fraction] 37.8 % Low 40-54 [facility] Hemoglobin measurementOrdere d By: Maikel Liang on 09-30-2024 Hemoglobin (Bld) [Mass/Vol] 11.3 g/dL Low 13.0-16.5 [facility] Immature granulocytes/100 WB C Auto (Bld)Ordered By: Maikel Liang on 09-30-2024 Immature granulocytes/100 WBC (Bld) 0.700 % 0.0-0.9 [facility] Comment on above: IG% - Immature Granu locytes (promyelocytes, myelocytes and metamyelocytes) > 1% indicates that a LEFT SHIFT is Present. MCV (mean corpuscular volume ) determinationOrdered By: Maikel Liang on 09-30-2024 MCV (RBC) [Entitic vol] 74.1 fL Low 80-94 [facility] Mean corpuscular hemoglobin (MCH) determinationOrdered By: Maikel Liang on 09-30-2024 MCH (RBC) [Entitic mass] 22.2 pg Low 27.0-32.0 [facility] Mean corpuscular hemoglobin concentration (MCHC) determinationOrdered By: Maikel Liang on 09-30-2024 MCHC (RBC) [Mass/Vol] 29.9 g/dL Low 32-36 [facility] Mean platelet volume determi nationOrdered By: Maikel Liang on 09-30-2024 Platelet mean volume (Bld) [Entitic vol] 9.1 fL 6.2-12.0 [facility] Monocyte percentageOrdered B y: Maikel Liang on 09-30-2024 Monocytes/100 WBC (Bld) 7.4 % 0-10 [facility] Neutrophil percentageOrdered By: Maikel Liang on 09-30-2024 Neutrophils/100 WBC (Bld) 80.1 % High 47-70 [facility] Nucleated red blood cell per centageOrdered By: Maikel Liang on 09-30-2024 Nucleated RBC/100 WBC (Bld) [Ratio] 0 % 0-5 [facility] Platelet countOrdered By: Mary Kate Liang on 09-30-2024 Platelets (Bld) [#/Vol] 427 10*3/uL 150-450 [facility] Potassium measurement (mass/ volume)Ordered By: Maikel Liang on 09-30-2024 Potassium (Unsp spec) [Mass/Vol] 4.8 mmol/L 3.3-5.1 [facility] RBC Auto (Bld) [#/Vol]Ordere d By: Maikel Liang on 09-30-2024 RBC (Bld) [#/Vol] 5.10 10*6/uL 4.6-6.2 [facility] Serum creatinine measurement (mass/volume)Ordered By: Maikel Liang on 09-30-2024 Creatinine [Mass/Vol] 1.07 mg/dL 0.70-1.20 [facility] Serum glucose measurement (m ass/volume)Ordered By: Maikel Liang on 09-30-2024 Glucose [Mass/Vol] 117 mg/dL High 70-99 [facility] Serum or plasma calcium werner urement (mass/volume)Ordered By: Maikel Liang on 09-30-2024 Calcium [Mass/Vol] 9.5 mg/dL 7.6-11.0 [facility] Serum or plasma urea nitroge n measurement (mass/volume)Ordered By: Maikel Liang on 09-30-2024 Urea nitrogen [Mass/Vol] 20 mg/dL High 4-19 [facility] Sodium levelOrdered By: [facility] khushboo Liang on 09-30-2024 Sodium [Moles/Vol] 137 mmol/L 133-145 [facility] White blood cell (WBC) count Ordered By: Maikel Liang on 09-30-2024 WBC (Bld) [#/Vol] 13.7 10*3/uL High 4.4-11.0 [facility] Cardiology Visit Reporton Cardiology Visit Report [facility] [address] [place] [address]. [address] [place] [address] OFFICE VISIT Date of Service: 09/17/24 MR#: [id number] Acct: [id number] Name: ANGI JACKSON Rep #: [id number] : 1950 Provider: MAURO Ramos Age/Sex: 74/M Location: [facility] [place] [facility] Status: Signed HPI HPI History of [...] preserved ejection fraction. Patient was hospitalized at [facility] 08/14 - 08/16/2024 for CHF. 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 Normal [facility] Thyroid Stim Hormone (TSH)on 09-02-2024 TSH 1.470 uIU/mL Normal 0.300-4.200 [facility] Comment on above: Order Comment: *ADD ON*PLEASE ADD ON TSH TO LABS DONE ON 09/01/24 Performed By: #### L 100.0500 #### [facility] [address] [place], [address] Absolute lymphocyte countOrd ered By: Jovany Brush on 09-01-2024 Lymphocytes Auto (Unsp spec) [#/Vol] 1.42 10*3/uL 0.83-4.51 [facility] Absolute neutrophil countOrd ered By: Jovany Brush on 09-01-2024 Neutrophils (Bld) [#/Vol] 9.4 10*3/uL High 2.0-7.7 [facility] Anion gap in Serum or Plasma Ordered By: Jovany Brush on 09-01-2024 Anion gap [Moles/Vol] 12 mmol/L 5-15 [facility] Automated lymphocyte count a s percentage of total leukocytesOrdered By: Jovany Brush on 09-01-2024 Lymphocytes/100 WBC Auto (Unsp spec) 11.7 % Low 19-41 [facility] BUN/creatinine ratioOrdered By: Jovany Brush on 09-01-2024 Urea nitrogen/Creatinine [Mass ratio] 17.0 mg/mg 10-20 [facility] Basophil percentageOrdered B y: Jovany Brush on 09-01-2024 Basophils/100 WBC (Bld) 0.7 % 0-1 [facility] Bilirubin, totalOrdered By: Jovany Brush on 09-01-2024 Bilirubin [Mass/Vol] 0.62 mg/dL 0.00-1.30 [facility] CBC W/Diff, Automatedon 04-0 Absolute Lymph 1.42 X10 3/uL Normal 0.83-4.51 [facility] Comment on above: Performed By: #### L 500.2500 #### [facility] [address] [place], [address] Absolute Neut 9.4 X10 3/uL High 2.0-7.7 [facility] Comment on above: Performed By: #### L 500.2500 #### [facility] [address] [place], [address] Basophils/100 WBC (Bld) 0.7 % Normal 0-1 [facility] Comment on above: Performed By: #### L 500.2500 #### [facility] [address] [facility] [place], [address] Eosinophils/100 WBC (Bld) 1.6 % Normal 0-5 [facility] Comment on above: Performed By: #### L 500.2500 #### [facility] [address] [place], [address] Erythrocyte distribution width (RBC) [Ratio] 18.0 % High 11.6-14.6 [facility] Comment on above: Performed By: #### L 500.2500 #### [facility] [address] [place], [address] Hematocrit (Bld) [Volume fraction] 39.5 % Low 40-54 [facility] Comment on above: Performed By: #### L 500.2500 #### [facility] [address] [place], [address] Hemoglobin (Bld) [Mass/Vol] 11.8 g/dL Low 13.0-16.5 [facility] Comment on above: Performed By: #### L 500.2500 #### [facility] [address] [place], [address] IG% 0.500 Normal 0.0-0.9 [facility] Comment on above: Result Comment: IG% - Immature Granulocytes (promyelocytes, myelocytes and metamyelocytes) > 1% indicates that a LEFT SHIFT is Present. Performed By: #### L 500.2500 #### [facility] [address] [facility] [facility] [place], [address] Lymphocytes/100 WBC (Bld) 11.7 % Low 19-41 [facility] Comment on above: Performed By: #### L 500.2500 #### [facility] [address] [place], [address] MCH (RBC) [Entitic mass] 22.7 pg Low 27.0-32.0 [facility] Comment on above: Performed By: #### L 500.2500 #### [facility] [address] [place], [address] MCHC (RBC) [Mass/Vol] 29.9 g/dL Low 32-36 [facility] Comment on above: Performed By: #### L 500.2500 #### [facility] [address] [place], [address] MCV (RBC) [Entitic vol] 76.0 fL Low 80-94 [facility] Comment on above: Performed By: #### L 500.2500 #### [facility] [address] [place], [address] Monocytes/100 WBC (Bld) 8.2 % Normal 0-10 [facility] Comment on above: Performed By: #### L 500.2500 #### [facility] [address] [place], [address] Neutrophils/100 WBC (Bld) 77.3 % High 47-70 [facility] Comment on above: Performed By: #### L 500.2500 #### [facility] [address] [place], [address] Nucleated RBC (Bld) [#/Vol] 0 10*3/uL Normal 0-5 [facility] Comment on above: Performed By: #### L 500.2500 #### [facility] [address] [place], [address] Platelet mean volume (Bld) [Entitic vol] 9.2 fL Normal 6.2-12.0 [facility] Comment on above: Performed By: #### L 500.2500 #### [facility] [address] [place], [address] Platelets (Bld) [#/Vol] 424 10*3/uL Normal 150-450 [facility] Comment on above: Performed By: #### L 500.2500 #### [facility] [place], [address] RBC (Bld) [#/Vol] 5.20 10*6/uL Normal 4.6-6.2 [facility] Comment on above: Performed By: #### L 500.2500 #### [facility] [address] [place], [address] RDW SD 48.5 fl High 35.1-43.9 [facility] Comment on above: Performed By: #### L 500.2500 #### [facility] [address] [place], [address] WBC (Bld) [#/Vol] 12.1 10*3/uL High 4.4-11.0 [facility] Comment on above: Performed By: #### L 500.2500 #### [facility] [address] [place], [place], [address] Calculated very low density lipoprotein (VLDL) cholesterol measurementOrdered By: Jovany Brush on 09-01-2024 Calculated very low density lipoprotein (VLDL) cholesterol measurement 27 mg/dL 5-40 [facility] VLDL Cholesterol 27 mg/dL 5-40 [facility] Carbon dioxide, total [Moles /volume] in Central venous bloodOrdered By: Jovany Brush on 09-01-2024 CO2 [Moles/Vol] 23.6 mmol/L 21.0-32.0 [facility] Chloride assayOrdered By: Dharmesh Brush on 09-01-2024 Chloride [Moles/Vol] 102 mmol/L 98-108 [facility] Comprehensive Metabolic Prof ilon 09-01-2024 Albumin [Mass/Vol] 4.2 g/dL Normal 3.4-4.8 [facility] Comment on above: Order Comment: TSH Performed By: #### L 500.2500 #### [facility] [address] [place], [address] Albumin/Globulin [Mass ratio] 1.2 {ratio} Normal 0.9-2.4 [facility] Comment on above: Order Comment: TSH Performed By: #### L 500.2500 #### [facility] [address] [place], [place], [address] ALK PHOS 144 U/L High 40-129 [facility] Comment on above: Order Comment: TSH Performed By: #### L 500.2500 #### [facility] [address] [place], [address] ALT [Catalytic activity/Vol] 21 U/L Normal <=46 [facility] Comment on above: Order Comment: TSH Performed By: #### L 500.2500 #### [facility] [address] [place], [address] AST [Catalytic activity/Vol] 26 U/L Normal <=37 [facility] Comment on above: Order Comment: TSH Performed By: #### L 500.2500 #### [facility] [address] [place], [address] Bilirubin [Mass/Vol] 0.62 mg/dL Normal 0.00-1.30 [facility] Comment on above: Order Comment: TSH Performed By: #### L 500.2500 #### [facility] [address] [place], [address] BUN/CRE 17.0 RATIO Normal 10-20 [facility] Comment on above: Order Comment: TSH Performed By: #### L 500.2500 #### [facility] [address] [place], [address] Calcium [Mass/Vol] 9.7 mg/dL Normal 7.6-11.0 [facility] Comment on above: Order Comment: TSH Performed By: #### L 500.2500 #### [facility] [address] [place], [address] Chloride [Moles/Vol] 102 mmol/L Normal 98-108 [facility] Comment on above: Order Comment: TSH Performed By: #### L [id number] #### [facility] [address] [place], [address] CO2 [Moles/Vol] 23.6 mmol/L Normal 21.0-32.0 [facility] Comment on above: Order Comment: TSH Performed By: #### L 500.2500 #### [facility] [address] [place], [address] Creatinine [Mass/Vol] 0.76 mg/dL Normal 0.70-1.20 [facility] Comment on above: Order Comment: TSH Performed By: #### L 500.2500 #### [facility] [address] [place], [address] GAP 12 Normal 5-15 [facility] Comment on above: Order Comment: TSH Performed By: #### L 500.2500 #### [facility] [address] [place], [address] GFR/1.73 sq M.predicted among non-blacks MDRD (S/P/Bld) [Vol rate/Area] 94 mL/min/{1.73_m2} Normal >60 [facility] Comment on above: Order Comment: TSH Result Comment: mL/m in/1.73m2 CKD-EPI Creatinine Equation (2020) Performed By: #### L 500.2500 #### [facility] [address] [place], [address] Globulin (S) [Mass/Vol] 3.5 g/dL Normal 2.2-4.2 [facility] Comment on above: Order Comment: TSH Performed By: #### L 500.2500 #### [facility] [address] [place], [address] Glucose [Mass/Vol] 117 mg/dL High 70-99 [facility] Comment on above: Order Comment: TSH Performed By: #### L [id number] #### [facility] [address] [place], [address] Potassium [Moles/Vol] 4.6 mmol/L Normal 3.3-5.1 [facility] Comment on above: Order Comment: TSH Performed By: #### L [id number] #### [facility] [address] [place], [address] Sodium [Moles/Vol] 138 mmol/L Normal 133-145 [facility] Comment on above: Order Comment: TSH Performed By: #### L [id number] #### [facility] [address] [place], [place], [id number] T PROT 7.7 g/dL Normal 5.9-8.4 [facility] Comment on above: Order Comment: TSH Performed By: #### L 500.2500 #### [facility] [address] [place], [place], [address] Urea nitrogen [Mass/Vol] 13 mg/dL Normal 4-19 [facility] Comment on above: Order Comment: TSH Performed By: #### L 500.2500 #### [facility] [address] [place], [place], [address] Eosinophil percentageOrdered By: Jovany Brush on 09-01-2024 Eosinophils/100 WBC (Bld) 1.6 % 0-5 [facility] Erythrocyte distribution wid th (RBC) [Ratio]Ordered By: Jovany Brush on 09-01-2024 Erythrocyte distribution width (RBC) [Entitic vol] 48.5 fL High 35.1-43.9 [facility] Erythrocyte distribution wid th ratioOrdered By: Jovany Brush on 09-01-2024 Erythrocyte distribution width (RBC) [Ratio] 18.0 % High 11.6-14.6 [facility] Erythrocyte distribution wid th standard deviationOrdered By: Jovany Brush on 09-01-2024 Erythrocyte distribution width (RBC) [Ratio] 48.5 fl High 35.1-43.9 [facility] GFR/1.73 sq M.predicted qiana g non-blacks MDRD (S/P/Bld) [Vol rate/Area]Ordered By: Jovany Brush on 09-01-2024 Estimated GFR (MDRD) Non-Af Amer 94 >60 [facility] Comment on above: mL/min/1.73m2 CKD-EP I Creatinine Equation (2020) Glomerular filtration rate ( GFR) estimation/1.73 sq m using serum, plasma, or whole bOrdered By: Jovany Brush on 09-01-2024 GFR/1.73 sq M.predicted among non-blacks MDRD (S/P/Bld) [Vol rate/Area] 94 mL/min/{1.73_m2} >60 [facility] Comment on above: mL/min/1.73m2 CKD-EP I Creatinine Equation (2020) Hematocrit Auto (Bld) [Volum e fraction]Ordered By: Jovany Brush on 09-01-2024 Hematocrit (Bld) [Volume fraction] 39.5 % Low 40-54 [facility] Hemoglobin measurementOrdere d By: Jovany Gonsalo on 09-01-2024 Hemoglobin (Bld) [Mass/Vol] 11.8 g/dL Low 13.0-16.5 [facility] Hepatitis C Antibodyon 09-01 Hepatitis C Ab Non-Reactive Normal Nonreactive [facility] Comment on above: Result Comment: Reac tive: Presumptive evidence of antibodies to HCV. Follow CDC recommendations for supplemental testing. Non-Reactive: Antibodies to HCV were not detected; does not exclude the possibility of exposure to HCV Reactive Results are presumptive evidence of antibodies to HCV. Follow CDC recommendations for supplemental testing. Order confirmation testing: HCV Quant by PCR testing - HCVPCR lc#[id number] Non Reactive: < 0.8 Equivocal: >/= 0.8 to < 1.0 Reactive: >/= 1.0 The CDC requires that a reactive/equivocal HCV antibody result be sent out for confirmation. HCV Quant by PCR testing. Performed By: #### L 100.0500 #### [facility] [address] [place], [place], [id number] Hepatitis C antibodyOrdered By: Jovany Brush on 09-01-2024 Hepatitis C Antibody Non-Reactive Nonreactive [facility] Comment on above: Reactive: Presumptiv e evidence of antibodies to HCV. Follow CDC recommendations for supplemental testing.Non-Reactive: Antibodies to HCV were not detected; does not exclude the possibility of exposure to HCVReactive Results are presumptive evidence of antibodies to HCV. Follow CDC recommendations for supplemental testing.Order confirmation testing: HCV Quant by PCR testing - HCVPCR lc#[id number] Non Reactive: < 0.8 Equivocal: >/= 0.8 to < 1.0 Reactive: >/= 1.0The CDC requires that a reactive/equivocal HCV antibody result be sent out for confirmation. HCV Quant by PCR testing. Immature granulocytes/100 WB C Auto (Bld)Ordered By: Jovany Brush on 09-01-2024 Immature granulocytes/100 WBC (Bld) 0.500 % 0.0-0.9 [facility] Comment on above: IG% - Immature Granu locytes (promyelocytes, myelocytes and metamyelocytes) > 1% indicates that a LEFT SHIFT is Present. LDL calc ser/plasOrdered By: Jovany Brush on 09-01-2024 Cholesterol in LDL [Mass/Vol] 101 mg/dL [facility] Comment on above: Nrsycyyiij=859-963 m g/dL & Higher Bylf=789 mg/dL or greater LDL Cholesterol, Calculated 101 mg/dL [facility] Comment on above: Hoepeixmdq=985-806 m g/dL & Higher Sten=097 mg/dL or greater Laboratory - Chemistry and C hemistry - challengeOrdered By: Jovany Brush on 09-01-2024 AST [Catalytic activity/Vol] 26 U/L <38 [facility] Lipid Profileon 09-01-2024 CHOL:HDL 4.48 Normal [facility] Comment on above: Performed By: #### L 100.0500 #### [facility] [address] [facility] [place], [place], [id number] ([address]48) Cholesterol [Mass/Vol] 165 mg/dL Normal <=200 [facility] Comment on above: Result Comment: Chol esterol level, Desirable <200 mg/dL Borderline high cholesterol 200-239 mg/dL High cholesterol >=240 mg/dL Recommendations of the NCEP Adult Treatment Panel for the following risk-cutoff thresholds for the [place] population. Performed By: #### L 100.0500 #### [facility] [address] [place], [address] Cholesterol in HDL [Mass/Vol] 37 mg/dL Low [facility] Comment on above: Result Comment: Blanca onal Cholesterol Education Program (NCEP) guidelines: <40 mg/dL: Low HDL-cholesterol (major risk factor for CHD) >= 60 mg/dL: High HDL-cholesterol (negative risk factor for CHD) HDL-cholesterol is affected by a number of factors, e.g. smoking, exercise, hormones, sex and age. Performed By: #### L 100.0500 #### [facility] [address] [place], [address] Cholesterol in LDL [Mass/Vol] 101 mg/dL Normal [facility] Comment on above: Result Comment: Bord mxzyck=820-336 mg/dL Higher Krvk=351 mg/dL or greater Performed By: #### L 100.0500 #### [facility] [address] [place], [address] Cholesterol in VLDL [Mass/Vol] 27 mg/dL Normal 5-40 [facility] Comment on above: Performed By: #### L 100.0500 #### [facility] [address] [place], [address] Triglyceride [Mass/Vol] 136 mg/dL Normal [facility] Comment on above: Result Comment: The drugs N-Acetylcysteine and Metamizole may falsely depress this assay. Normal range: <150 mg/dL Borderline High: 150-199 mg/dL High: 200-499 mg/dL Very High: >500 mg/dL Performed By: #### L 100.0500 #### [facility] [address] [place], [address] Lymphocytes Auto (Unsp spec) [#/Vol]Ordered By: Jovany Brush on 09-01-2024 Lymphocytes (Bld) [#/Vol] 1.42 10*3/uL 0.83-4.51 [facility] Lymphocytes/100 WBC Auto (Un sp spec)Ordered By: Jovany Brush on 09-01-2024 Lymphocytes/100 WBC (Bld) 11.7 % Low 19-41 [facility] MCV (mean corpuscular volume ) determinationOrdered By: Jovany Brush on 09-01-2024 MCV (RBC) [Entitic vol] 76.0 fL Low 80-94 [facility] Mean corpuscular hemoglobin (MCH) determinationOrdered By: Jovany Brush on 09-01-2024 MCH (RBC) [Entitic mass] 22.7 pg Low 27.0-32.0 [facility] Mean corpuscular hemoglobin concentration (MCHC) determinationOrdered By: Jovany Brush on 09-01-2024 MCHC (RBC) [Mass/Vol] 29.9 g/dL Low 32-36 [facility] Mean platelet volume determi nationOrdered By: Jovany Brush on 09-01-2024 Platelet mean volume (Bld) [Entitic vol] 9.2 fL 6.2-12.0 [facility] Monocyte percentageOrdered B y: Jovany Brush on 09-01-2024 Monocytes/100 WBC (Bld) 8.2 % 0-10 [facility] Neutrophil percentageOrdered By: Jovany Brush on 09-01-2024 Neutrophils/100 WBC (Bld) 77.3 % High 47-70 [facility] Nucleated red blood cell per centageOrdered By: Jovany Brush on 09-01-2024 Nucleated RBC/100 WBC (Bld) [Ratio] 0 % 0-5 [facility] Platelet countOrdered By: Dharmesh Brush on 09-01-2024 Platelets (Bld) [#/Vol] 424 10*3/uL 150-450 [facility] Potassium (Unsp spec) [Mass/ Vol]Ordered By: Jovany Brush on 09-01-2024 Potassium [Moles/Vol] 4.6 mmol/L 3.3-5.1 [facility] Potassium measurement (mass/ volume)Ordered By: Jovany Brush on 09-01-2024 Potassium (Unsp spec) [Mass/Vol] 4.6 mmol/L 3.3-5.1 [facility] RBC Auto (Bld) [#/Vol]Ordere d By: Jovany Brush on 09-01-2024 RBC (Bld) [#/Vol] 5.20 10*6/uL 4.6-6.2 [facility] Screening total cholesterol/ high density lipoprotein (HDL) cholesterol ratioOrdered By: Jovany Brush on 09-01-2024 Cholesterol.total/Molly sterol in HDL [Mass ratio] 4.48 {ratio} [facility] Serum creatinine measurement (mass/volume)Ordered By: Jovany Brush on 09-01-2024 Creatinine [Mass/Vol] 0.76 mg/dL 0.70-1.20 [facility] Serum globulin measurementOr dered By: Jovany Brush on 09-01-2024 Globulin (S) [Mass/Vol] 3.5 g/dL 2.2-4.2 [facility] Serum glucose measurement (m ass/volume)Ordered By: Jovany Brush 09-01-2024 Glucose [Mass/Vol] 117 mg/dL High 70-99 [facility] Serum or plasma alanine pugh otransferase (ALT) measurementOrdered By: Jovany Brush 09-01-2024 ALT [Catalytic activity/Vol] 21 U/L <47 [facility] Serum or plasma albumin werner urement (mass/volume)Ordered By: Jovany Brush on 09-01-2024 Albumin [Mass/Vol] 4.2 g/dL 3.4-4.8 [facility] Serum or plasma albumin/glob ulin mass ratioOrdered By: Jovany Brush 09-01-2024 Albumin/Globulin [Mass ratio] 1.2 {ratio} 0.9-2.4 [facility] Serum or plasma alkaline damien sphatase measurementOrdered By: Jovany Brush 09-01-2024 ALP [Catalytic activity/Vol] 144 U/L High 40-129 [facility] Serum or plasma calcium werner urement (mass/volume)Ordered By: Jovany Brush 09-01-2024 Calcium [Mass/Vol] 9.7 mg/dL 7.6-11.0 [facility] Serum or plasma cholesterol in HDL measurement (mass/volume)Ordered By: Jovany Brush on 09-01-2024 Cholesterol in HDL [Mass/Vol] 37 mg/dL Low >40 [facility] Comment on above: National Cholesterol Education Program (NCEP) guidelines:<40 mg/dL: Low HDL-cholesterol (major risk factor for CHD)>= 60 mg/dL: High HDL-cholesterol (negative risk factor for CHD)HDL-cholesterol is affected by a number of factors, e.g. smoking, exercise, hormones, sex and age. Serum or plasma cholesterol measurement (mass/volume)Ordered By: Jovany Brush 09-01-2024 Cholesterol [Mass/Vol] 165 mg/dL <201 [facility] Comment on above: Cholesterol level, D esirable <200 mg/dLBorderline high cholesterol 200-239 mg/dLHigh cholesterol >=240 mg/dLRecommendations of the NCEP Adult Treatment Panel for the following risk-cutoff thresholds for the [place] population. Serum or plasma urea nitroge n measurement (mass/volume)Ordered By: Jovany Brush on 09-01-2024 Urea nitrogen [Mass/Vol] 13 mg/dL 4-19 [facility] Sodium levelOrdered By: Jovany Brush on 09-01-2024 Sodium [Moles/Vol] 138 mmol/L 133-145 [facility] TSH DL <= 0.005 mIU/L QnOrde red By: Jovany Brush on 09-01-2024 Thyroid Stimulating Hormone (TSH) 1.470 uIU/mL 0.300-4.200 [facility] TSH Qn 1.470 uIU/mL 0.300-4.200 [facility] Total proteinOrdered By: Jovany Brush on 09-01-2024 Protein [Mass/Vol] 7.7 g/dL 5.9-8.4 [facility] Triglycerides measurementOrd ered By: Jovany Brush on 09-01-2024 Triglyceride [Mass/Vol] 136 mg/dL <199 [facility] Comment on above: The drugs N-Acetylcy steine and Metamizole may falsely depress this assay. Normal range: <150 mg/dLBorderline High: 150-199 mg/dLHigh: 200-499 mg/dLVery High: >500 mg/dL Vitamin D, 25-hydroxyOrdered By: Jovany Brush on 09-01-2024 Vitamin D 25-Hydroxy 28.1 ng/mL Low 30-100 [facility] Comment on above: Vitamin D StatusDefi ciency: <20 ng/mL (50nmol/L)Insufficiency: 20-30 ng/mL (50-75 nmol/L)Sufficiency: 30-100 ng/mL (75-250 nmol/L)Toxicity: >100 ng/mL (>250 nmol/L) Vitamin D,25 Hydroxyon 09-01 Vitamin D 25-OH 28.1 ng/mL Low 30-100 [facility] Comment on above: Result Comment: Daysi min D Status Deficiency: <20 ng/mL (50nmol/L) Insufficiency: 20-30 ng/mL (50-75 nmol/L) Sufficiency: 30-100 ng/mL (75-250 nmol/L) Toxicity: >100 ng/mL (>250 nmol/L) Performed By: #### L 100.0500 #### [facility] [address] [place], [address] White blood cell (WBC) count Ordered By: Jovany Brush on 09-01-2024 WBC (Bld) [#/Vol] 12.1 10*3/uL High 4.4-11.0 [facility] Anion gap in Serum or Plasma Ordered By: Maikel Liagn on 08-30-2024 Anion gap [Moles/Vol] 11 mmol/L - [facility] BUN/creatinine ratioOrdered By: Maikel Liang on 08-30-2024 Urea nitrogen/Creatinine [Mass ratio] 17.2 mg/mg - [facility] Basic Metabolic Profile (BMP )on 08-30-2024 BUN/CRE 17.2 RATIO Normal - [facility] Comment on above: Performed By: #### L 500.2500 #### [facility] [address] [place] [place], [address] Calcium [Mass/Vol] 9.3 mg/dL Normal 7.6-11.0 [facility] Comment on above: Performed By: #### L 500.2500 #### [facility] [address] [place], [address] Chloride [Moles/Vol] 102 mmol/L Normal 98-108 [facility] Comment on above: Performed By: #### L 500.2500 #### [facility] [address] [place], [address] CO2 [Moles/Vol] 24.9 mmol/L Normal 21.0-32.0 [facility] Comment on above: Performed By: #### L 500.2500 #### [facility] [address] [place], [address] Creatinine [Mass/Vol] 0.76 mg/dL Normal 0.70-1.20 [facility] Comment on above: Performed By: #### L 500.2500 #### [facility] [address] [place], [address] GAP 11 Normal 5-15 [facility] Comment on above: Performed By: #### L 500.2500 #### [facility] [address] [place], [address] GFR/1.73 sq M.predicted among non-blacks MDRD (S/P/Bld) [Vol rate/Area] 94 mL/min/{1.73_m2} Normal >60 [facility] Comment on above: Result Comment: mL/m in/1.73m2 CKD-EPI Creatinine Equation (2020) Performed By: #### L 500.2500 #### [facility] [address] [place], [address] Glucose [Mass/Vol] 144 mg/dL High 70-99 [facility] Comment on above: Performed By: #### L 500.2500 #### [facility] [address] [place], [address] Potassium [Moles/Vol] 4.5 mmol/L Normal 3.3-5.1 [facility] Comment on above: Performed By: #### L 500.2500 #### [facility] [address] [place], [address] Sodium [Moles/Vol] 138 mmol/L Normal 133-145 [facility] Comment on above: Performed By: #### L 500.2500 #### [facility] [address] [place], [address] Urea nitrogen [Mass/Vol] 13 mg/dL Normal 4-19 [facility] Comment on above: Performed By: #### L 500.2500 #### [facility] [address] [place], [address] Carbon dioxide, total [Moles /volume] in Central venous bloodOrdered By: Maikel Liang on 08-30-2024 CO2 [Moles/Vol] 24.9 mmol/L 21.0-32.0 [facility] Chloride assayOrdered By: Mary Kate Liang on 08-30-2024 Chloride [Moles/Vol] 102 mmol/L 98-108 [facility] GFR/1.73 sq M.predicted qiana g non-blacks MDRD (S/P/Bld) [Vol rate/Area]Ordered By: Maikel Liang on 08-30-2024 Estimated GFR (MDRD) Non-Af Amer 94 >60 [facility] Comment on above: mL/min/1.73m2 CKD-EP I Creatinine Equation (2020) Glomerular filtration rate ( GFR) estimation/1.73 sq m using serum, plasma, or whole bOrdered By: Maikel Liang on 08-30-2024 GFR/1.73 sq M.predicted among non-blacks MDRD (S/P/Bld) [Vol rate/Area] 94 mL/min/{1.73_m2} >60 [facility] Comment on above: mL/min/1.73m2 CKD-EP I Creatinine Equation (2020) Potassium (Unsp spec) [Mass/ Vol]Ordered By: Maikel Liang on 08-30-2024 Potassium [Moles/Vol] 4.5 mmol/L 3.3-5.1 [facility] Potassium measurement (mass/ volume)Ordered By: Maikel Liang on 08-30-2024 Potassium (Unsp spec) [Mass/Vol] 4.5 mmol/L 3.3-5.1 [facility] Serum creatinine measurement (mass/volume)Ordered By: Maikel Liang on 08-30-2024 Creatinine [Mass/Vol] 0.76 mg/dL 0.70-1.20 [facility] Serum glucose measurement (m ass/volume)Ordered By: Maikel Liang on 08-30-2024 Glucose [Mass/Vol] 144 mg/dL High 70-99 [facility] Serum or plasma calcium werner urement (mass/volume)Ordered By: Maikel Liang on 08-30-2024 Calcium [Mass/Vol] 9.3 mg/dL 7.6-11.0 [facility] Serum or plasma urea nitroge n measurement (mass/volume)Ordered By: Maikel Liang on 08-30-2024 Urea nitrogen [Mass/Vol] 13 mg/dL 4-19 [facility] Sodium levelOrdered By: Isabela Liang on 08-30-2024 Sodium [Moles/Vol] 138 mmol/L 133-145 [facility] 12 Lead EKG performed by [facility] on 08-20-2024 12 Lead EKG performed by [place] [id number] [place] [address] 12 Lead EKG performed by [facility] 08/20/24 1011 MR#: [id number] Acct: [id number] Name: ANGI JACKSON Rep #: [id number] : 1950 74 From: Maikel WADE Attending Dr: MAURO Ramos Status: DEP AM B Ordering Dr: Maikel Liang Date: 08/20/24 [place] [facility] [place] Sex: M C Admitted: [facility]/12 Lead EKG performed by [facility] ECG Report Interpretation ------Atrial fibrillation with PVCsElectronically signed on 08/24/2024 at 07:46 by Fco [employer] Version [id number] 08/24/24 0751 Date Maikel WADE CC: PRAKASH Harper Date Dictated: 08/20/24 1011 Date Transcribed: 08/20/24 101 Inspector Brake Lining: BALDOMERO Signed Normal [facility] Anion gap in Serum or Plasma Ordered By: Maikel Liang on 08-20-2024 Anion gap [Moles/Vol] 14 mmol/L 5-15 [facility] BUN/creatinine ratioOrdered By: Maikel Liang on 08-20-2024 Urea nitrogen/Creatinine [Mass ratio] 22.1 mg/mg High 03-14 [facility] Basic Metabolic Profile (BMP )on 08-20-2024 BUN/CRE 22.1 RATIO High 03-14 [facility] Comment on above: Performed By: #### L 501.080 #### [facility] [address] [place], [address] Calcium [Mass/Vol] 9.0 mg/dL Normal 7.6-11.0 [facility] Comment on above: Performed By: #### L 501.080 #### [facility] [address] [place], [address] Chloride [Moles/Vol] 103 mmol/L Normal 98-108 [facility] Comment on above: Performed By: #### L 501.080 #### [facility] [address] [place], [address] CO2 [Moles/Vol] 21.6 mmol/L Normal 21.0-32.0 [facility] Comment on above: Performed By: #### L 501.080 #### [facility] [address] [place], [address] Creatinine [Mass/Vol] 0.73 mg/dL Normal 0.70-1.20 [facility] Comment on above: Performed By: #### L 501.080 #### [facility] [address] [place], [address] GAP 14 Normal - [facility] Comment on above: Performed By: #### L 501.080 #### [facility] [address] [place], [address] GFR/1.73 sq M.predicted among non-blacks MDRD (S/P/Bld) [Vol rate/Area] 95 mL/min/{1.73_m2} Normal >60 [facility] Comment on above: Result Comment: mL/m in/1.73m2 CKD-EPI Creatinine Equation (2020) Performed By: #### L 501.080 #### [facility] [address] [place], [address] Glucose [Mass/Vol] 117 mg/dL High 70-99 [facility] Comment on above: Performed By: #### L 501.080 #### [facility] [address] [place], [address] Potassium [Moles/Vol] 4.4 mmol/L Normal 3.3-5.1 [facility] Comment on above: Performed By: #### L 501.080 #### [facility] [address] [place], [address] Sodium [Moles/Vol] 139 mmol/L Normal 133-145 [facility] Comment on above: Performed By: #### L 501.080 #### [facility] [address] [place], [address] Urea nitrogen [Mass/Vol] 16 mg/dL Normal 4-19 [facility] Comment on above: Performed By: #### L 501.080 #### [facility] [address] [place], [address] Carbon dioxide, total [Moles /volume] in Central venous bloodOrdered By: Maikel Liang on 08-20-2024 CO2 [Moles/Vol] 21.6 mmol/L 21.0-32.0 [facility] Cardiology Visit Reporton Cardiology Visit Report [facility] [address] [place] [address] OFFICE VISIT Date of Service: 08/20/24 MR#: [id number] Acct: [id number] Name: ANGI JACKSON Rep #: [id number] : 1950 Provider: MAURO Ramos Age/Sex: 74/M Location: [facility] [place] Status: Signed HPI HPI History of [...] morning of 08/14. Patient was hospitalized at [facility] 08/14 - 08/16/2024 for CHF. Patient was [...] Monitor Intake Visit Reasons: S/P OUSMANE 08/16 Inspector Metal Can Required: No Is patient in pain?: No [...] istory release (more content not included)... Normal [facility] Chest PA and Lateralon 08-20 Chest PA and Lateral [facility] Services [address] [place] [address] Chest PA and Lateral MR#: [id number] Acct: [id number] Name: ANGI JACKSON Rep #: [id number] : 1950 M 74 From: Matteo Saba MD PCP: PRAKASH Lanier Status: REG CLI Study: Chest PA and Lateral Date of Exam: 08/20/24 Exam# [id number] Ordering Dr: Maikel Liang EXAM: XR Chest, 2 Views CLINICAL INDICATION: SHORTNESS OF BREATH TECHNIQUE: Frontal and lateral views of the chest. COMPARISON: No relevant prior studies available. FINDINGS: LUNGS AND PLEURAL SPACES: See below. HEART: Cardiomegaly with mild congestion. MEDIASTINUM: Unremarkable. Normal mediastinal contour. BONES/JOINTS: Unremarkable. No acute fracture. RAD/Chest PA and Lateral IMPRESSION: Cardiomegaly with mild congestion. Reading [facility] CC: TRAVEL PT-C Marcos Harper; MAURO Ramos Inspector Brake Lining: Signed Normal [facility] Chloride assayOrdered By: Mary Kate Liang on 08-20-2024 Chloride [Moles/Vol] 103 mmol/L 98-108 [facility] GFR/1.73 sq M.predicted qiana g non-blacks MDRD (S/P/Bld) [Vol rate/Area]Ordered By: Maikel Liang on 08-20-2024 Estimated GFR (MDRD) Non-Af Amer 95 >60 [facility] Comment on above: mL/min/1.73m2 CKD-EP I Creatinine Equation (2020) Glomerular filtration rate ( GFR) estimation/1.73 sq m using serum, plasma, or whole bOrdered By: Maikel Liang on 08-20-2024 GFR/1.73 sq M.predicted among non-blacks MDRD (S/P/Bld) [Vol rate/Area] 95 mL/min/{1.73_m2} >60 [facility] Comment on above: mL/min/1.73m2 CKD-EP I Creatinine Equation (2020) L503.7505on 08-20-2024 Natriuretic peptide B (Bld) [Mass/Vol] 1075 pg/mL Normal <=1800 [facility] Comment on above: Result Comment: Hear t Failure Unlikely: < 300 pg/mL Heart Failure Likely < 50 Years: > 450 pg/mL 50-75 Years: > 900 pg/mL >75 Years: > 1800 pg/mL Performed By: #### L 501.080 #### [facility] [address] [place], [place], [address] Laboratory - Chemistry and C hemistry - challengeOrdered By: Maikel Liang on 08-20-2024 Natriuretic peptide B (Bld) [Mass/Vol] 1075 pg/mL <1800 [facility] Comment on above: Heart Failure Unlike ly: < 300 pg/mLHeart Failure Likely< 50 Years: > 450 pg/mL50-75 Years: > 900 pg/mL>75 Years: > 1800 pg/mL Potassium (Unsp spec) [Mass/ Vol]Ordered By: Maikel Liang on 08-20-2024 Potassium [Moles/Vol] 4.4 mmol/L 3.3-5.1 [facility] Potassium measurement (mass/ volume)Ordered By: Maikel Liang on 08-20-2024 Potassium (Unsp spec) [Mass/Vol] 4.4 mmol/L 3.3-5.1 [facility] Serum creatinine measurement (mass/volume)Ordered By: Maikel Liang on 08-20-2024 Creatinine [Mass/Vol] 0.73 mg/dL 0.70-1.20 [facility] Serum glucose measurement (m ass/volume)Ordered By: Maikel Liang on 08-20-2024 Glucose [Mass/Vol] 117 mg/dL High 70-99 [facility] Serum or plasma calcium werner urement (mass/volume)Ordered By: Maikel Liang on 08-20-2024 Calcium [Mass/Vol] 9.0 mg/dL 7.6-11.0 [facility] Serum or plasma urea nitroge n measurement (mass/volume)Ordered By: Maikel Liang on 08-20-2024 Urea nitrogen [Mass/Vol] 16 mg/dL 4-19 [facility] Sodium levelOrdered By: Isabela Liang on 08-20-2024 Sodium [Moles/Vol] 139 mmol/L 133-145 [facility] .Auto Diffon 08-16-2024 Basophil, Absolute 0.1 10 3/mcL Normal 0.0-0.2 [facility] Comment on above: Performed By: #### A PTT, MG, GFR, PBNP, CBC, TROPHS, PRO, ADIFF, BMP, ANEU, MDW #### [address] [address] Basophils/100 WBC (Bld) 1.0 % Normal 0.0-2.5 [facility] Comment on above: Performed By: #### A PTT, MG, GFR, PBNP, CBC, TROPHS, PRO, ADIFF, BMP, ANEU, MDW #### [address] [address] Eosinophil, Absolute 0.2 10 3/mcL Normal 0.0-0.7 [facility] Comment on above: Performed By: #### A PTT, MG, GFR, PBNP, CBC, TROPHS, PRO, ADIFF, BMP, ANEU, MDW #### [address] [address] Eosinophils/100 WBC (Bld) 1.7 % Normal 0.0-7.0 [facility] Comment on above: Performed By: #### A PTT, MG, GFR, PBNP, CBC, TROPHS, PRO, ADIFF, BMP, ANEU, MDW #### [address] [address] Lymphocyte, Absolute 1.5 10 3/mcL Normal 0.9-4.3 [facility] Comment on above: Performed By: #### A PTT, MG, GFR, PBNP, CBC, TROPHS, PRO, ADIFF, BMP, ANEU, MDW #### [address] [address] Lymphocytes/100 WBC (Bld) 13.5 % Low 20.0-40.0 [facility] Comment on above: Performed By: #### A PTT, MG, GFR, PBNP, CBC, TROPHS, PRO, ADIFF, BMP, ANEU, MDW #### [address] [address] Monocyte, Absolute 0.8 10 3/mcL Normal 0.1-1.4 [facility] Comment on above: Performed By: #### A PTT, MG, GFR, PBNP, CBC, TROPHS, PRO, ADIFF, BMP, ANEU, MDW #### [address] [address] Monocytes/100 WBC (Bld) 7.0 % Normal 2.0-13.0 [facility] Comment on above: Performed By: #### A PTT, MG, GFR, PBNP, CBC, TROPHS, PRO, ADIFF, BMP, ANEU, MDW #### [address] [address] Neutrophils/100 WBC (Bld) 76.8 % High 50.0-75.0 [facility] Comment on above: Performed By: #### A PTT, MG, GFR, PBNP, CBC, TROPHS, PRO, ADIFF, BMP, ANEU, MDW #### [address] [address] .GFRon 08-16-2024 Estimated Glomerular Filtration Rate 98 ml/min/1.73sqm Normal [facility] Comment on above: Result Comment: Stages of [...] TROPHS, PRO, ADIFF, BMP, ANEU, MDW #### [address] [address] .NEUABSon 08-16-2024 Neutrophil, Absolute 8.5 10 3/mcL High 2.3-8.1 [facility] Comment on above: Performed By: #### A PTT, MG, GFR, PBNP, CBC, TROPHS, PRO, ADIFF, BMP, ANEU, MDW #### [address] [address] BMPon 08-16-2024 BUN/Creatinine Ratio 17 ratio Normal 7-27 [facility] Comment on above: Performed By: #### A PTT, MG, GFR, PBNP, CBC, TROPHS, PRO, ADIFF, BMP, ANEU, MDW #### [address] [address] Calcium [Mass/Vol] 8.7 mg/dL Normal 8.4-10.2 [facility] Comment on above: Performed By: #### A PTT, MG, GFR, PBNP, CBC, TROPHS, PRO, ADIFF, BMP, ANEU, MDW #### [address] [address] Chloride [Moles/Vol] 104 mmol/L Normal 98-107 [facility] Comment on above: Performed By: #### A PTT, MG, GFR, PBNP, CBC, TROPHS, PRO, ADIFF, BMP, ANEU, MDW #### [address] [address] CO2 [Moles/Vol] 29 mmol/L Normal 23-31 [facility] Comment on above: Performed By: #### A PTT, MG, GFR, PBNP, CBC, TROPHS, PRO, ADIFF, BMP, ANEU, MDW #### [address] [address] Creatinine [Mass/Vol] 0.66 mg/dL Low 0.70-1.30 [facility] Comment on above: Result Comment: Test ing performed on Siemens Dimension EXL analyzer using a modified kinetic Magnolia technique. Performed By: #### A PTT, MG, GFR, PBNP, CBC, TROPHS, PRO, ADIFF, BMP, ANEU, MDW #### [address] [address] Electrolyte Balance 6.0 mEq/L Normal 4.0-15.0 [facility] Comment on above: Performed By: #### A PTT, MG, GFR, PBNP, CBC, TROPHS, PRO, ADIFF, BMP, ANEU, W #### [address] [address] Glucose [Mass/Vol] 124 mg/dL High 83-110 [facility] Comment on above: Performed By: #### A PTT, MG, GFR, PBNP, CBC, TROPHS, PRO, ADIFF, BMP, ANEU, MDW #### [address] [address] Potassium [Moles/Vol] 3.4 mmol/L Low 3.5-5.1 [facility] Comment on above: Performed By: #### A PTT, MG, GFR, PBNP, CBC, TROPHS, PRO, ADIFF, BMP, ANEU, MDW #### [address] [address] Sodium [Moles/Vol] 139 mmol/L Normal 136-145 [facility] Comment on above: Performed By: #### A PTT, MG, GFR, PBNP, CBC, TROPHS, PRO, ADIFF, BMP, ANEU, W #### [address] [address] Urea nitrogen [Mass/Vol] 11 mg/dL Normal 7-18 [facility] Comment on above: Performed By: #### A PTT, MG, GFR, PBNP, CBC, TROPHS, PRO, ADIFF, BMP, ANEU, MDW #### [address] [address] CBCon 08-16-2024 Erythrocyte distribution width (RBC) [Ratio] 18.9 % High 11.5-15.5 [facility] Comment on above: Performed By: #### A PTT, MG, GFR, PBNP, CBC, TROPHS, PRO, ADIFF, BMP, ANEU, RISA #### [address] [address] Hematocrit (Bld) [Volume fraction] 34.9 % Low 40.0-52.0 [facility] Comment on above: Performed By: #### A PTT, MG, GFR, PBNP, CBC, TROPHS, PRO, ADIFF, BMP, ANEURISA #### [address] [address] Hgb 11.1 G/dL Low 13.0-17.5 [facility] Comment on above: Performed By: #### A PTT, MG, GFR, PBNP, CBC, TROPHS, PRO, ADIFF, BMP, ANEU, RISA #### [address] [address] MCH (RBC) [Entitic mass] 23.3 pg Low 27.0-33.0 [facility] Comment on above: Performed By: #### A PTT, MG, GFR, PBNP, CBC, TROPHS, PRO, ADIFF, BMP, ANEURISA #### [address] [address] MCHC 31.7 G/dL Low 32.0-36.0 [facility] Comment on above: Performed By: #### A PTT, MG, GFR, PBNP, CBC, TROPHS, PRO, ADIFF, BMP, ANEURISA #### [address] [address] MCV (RBC) [Entitic vol] 73.5 fL Low 81.0-100.0 [facility] Comment on above: Performed By: #### A PTT, MG, GFR, PBNP, CBC, TROPHS, PRO, ADIFF, BMP, ANEUMDW #### [address] [address] Platelet 329 10 3/mcL Normal 150-450 [facility] Comment on above: Performed By: #### A PTT, MG, GFR, PBNP, CBC, TROPHS, PRO, ADIFF, BMP, ANEU, RISA #### [address] [address] Platelet mean volume (Bld) [Entitic vol] 7.7 fL Normal 6.4-10.5 [facility] Comment on above: Performed By: #### A PTT, MG, GFR, PBNP, CBC, TROPHS, PRO, ADIFF, BMP, ANEURISA #### [address] [address] RBC 4.75 10 6/mcL Normal 4.50-6.00 [facility] Comment on above: Performed By: #### A PTT, MG, GFR, PBNP, CBC, TROPHS, PRO, ADIFF, BMP, ANEU, RISA #### [address] [address] WBC 11.1 10 3/mcL High 4.5-10.8 [facility] Comment on above: Performed By: #### A PTT, MG, GFR, PBNP, CBC, TROPHS, PRO, ADIFF, BMP, ANEU, RISA #### [address] [address] MGon 08-16-2024 Magnesium [Mass/Vol] 2.1 mg/dL Normal 1.8-2.4 [facility] Comment on above: Performed By: #### A PTT, MG, GFR, PBNP, CBC, TROPHS, PRO, ADIFF, BMP, ANEURISA #### [address] [address] NM MYOCARDIAL SPECT STRESS/R ESTon 08-16-2024 NM [...] Sign Date: 08/16/2024 3:22:17 PM Ordering Provider:Juliet Bear Normal [facility] PROon 08-16-2024 PT Coag (PPP) [Time] 24.4 s High 9.0-14.4 [facility] Comment on above: Order Comment: order ed secondary to warfarin order Performed By: #### A PTT, MG, GFR, PBNP, CBC, TROPHS, PRO, ADIFF, BMP, REYNA, W #### [facility] [address] [place], [place] [address] PT International Ratio 2.1 Normal [facility] Comment on above: Order Comment: order ed secondary to warfarin order Result Comment: The [place] [employer] (CHEST, 1992, 102:312S-25S) recommended therapeutic range for oral anticoagulant therapy is: LOW RISK: Prophylaxis of venous thrombosis INR: 2.0-3.0 Treatment of pulmonary embolism 2.0-3.0 Prevention of systemic embolism 2.0-3.0 HIGH RISK: Mechanical prosthetic valves 2.5-3.5 Performed By: #### A PTT, MG, GFR, PBNP, CBC, TROPHS, PRO, ADIFF, BMP, ANEU, MDW #### [facility] [address] [place], [place] [address] TROPHSon 08-16-2024 High Sensitivity Troponin I 13 ng/L Normal 0-76 [facility] Comment on above: Result Comment: High Sensitive Troponin I Reference Ranges: Female: 0-51 ng/L Male: 0-76 ng/L Testing performed on [employer] using a homogeneous sandwich chemiluminescent immunoassay based on FAGUO technology. Performed By: #### A PTT, MG, GFR, PBNP, CBC, TROPHS, PRO, ADIFF, BMP, ANEU, MDW #### [address] [place], [place] [address] .Auto Diffon 08-15-2024 Basophil, Absolute 0.1 10 3/mcL Normal 0.0-0.2 [facility] Comment on above: Performed By: #### C BC, ANEU, TROPHS, GFR, MG, BMP, PRO, PBNP, ADIFF ####[address] [place], [place] [address] Basophils/100 WBC (Bld) 1.0 % Normal 0.0-2.5 [facility] Comment on above: Performed By: #### C BC, ANEU, TROPHS, GFR, MG, BMP, PRO, PBNP, ADIFF ####[facility] [place], [place] [address] Eosinophil, Absolute 0.1 10 3/mcL Normal 0.0-0.7 [facility] Comment on above: Performed By: #### C BC, ANEU, TROPHS, GFR, MG, BMP, PRO, PBNP, ADIFF ####[address] [place], [place] [address] Eosinophils/100 WBC (Bld) 1.1 % Normal 0.0-7.0 [facility] Comment on above: Performed By: #### C BC, ANEU, TROPHS, GFR, MG, BMP, PRO, PBNP, ADIFF ####[address] [place], [place] [address] Lymphocyte, Absolute 1.4 10 3/mcL Normal 0.9-4.3 [facility] Comment on above: Performed By: #### C BC, ANEU, TROPHS, GFR, MG, BMP, PRO, PBNP, ADIFF ####[address] [place], [place] [address] Lymphocytes/100 WBC (Bld) 12.3 % Low 20.0-40.0 [facility] Comment on above: Performed By: #### C BC, ANEU, TROPHS, GFR, MG, BMP, PRO, PBNP, ADIFF ####[address] [place], [place] [address] Monocyte, Absolute 0.8 10 3/mcL Normal 0.1-1.4 [facility] Comment on above: Performed By: #### C BC, ANEU, TROPHS, GFR, MG, BMP, PRO, PBNP, ADIFF ####[address] [place], [place] [address] Monocytes/100 WBC (Bld) 6.6 % Normal 2.0-13.0 [facility] Comment on above: Performed By: #### C BC, ANEU, TROPHS, GFR, MG, BMP, PRO, PBNP, ADIFF ####[address] [place], [place] [address] Neutrophils/100 WBC (Bld) 79.0 % High 50.0-75.0 [facility] Comment on above: Performed By: #### C BC, ANEU, TROPHS, GFR, MG, BMP, PRO, PBNP, ADIFF ####[address] [address] .GFRon 08-15-2024 Estimated Glomerular Filtration Rate 98 ml/min/1.73sqm Normal [facility] Comment on above: Result Comment: Stages of [...] TROPHS, GFR, MG, BMP, PRO, PBNP, ADIFF ####[facility] [place], [place] [address] .NEUABSon 08-15-2024 Neutrophil, Absolute 9.3 10 3/mcL High 2.3-8.1 [facility] Comment on above: Performed By: #### C BC, ANEU, TROPHS, GFR, MG, BMP, PRO, PBNP, ADIFF ####[address] [place], [place] [address] BMPon 08-15-2024 BUN/Creatinine Ratio 20 ratio Normal 7-27 [facility] Comment on above: Performed By: #### C BC, ANEU, TROPHS, GFR, MG, BMP, PRO, PBNP, ADIFF ####[address] [place], [place] [address] Calcium [Mass/Vol] 8.6 mg/dL Normal 8.4-10.2 [facility] Comment on above: Performed By: #### C BC, ANEU, TROPHS, GFR, MG, BMP, PRO, PBNP, ADIFF ####[address] [place], [place] [address] Chloride [Moles/Vol] 103 mmol/L Normal 98-107 [facility] Comment on above: Performed By: #### C BC, ANEU, TROPHS, GFR, MG, BMP, PRO, PBNP, ADIFF ####[address] [place], [place] [address] CO2 [Moles/Vol] 28 mmol/L Normal 23-31 [facility] Comment on above: Performed By: #### C BC, ANEU, TROPHS, GFR, MG, BMP, PRO, PBNP, ADIFF ####[address] [place], [place] [address] Creatinine [Mass/Vol] 0.65 mg/dL Low 0.70-1.30 [facility] Comment on above: Result Comment: Test ing performed on Siemens Dimension EXL analyzer using a modified kinetic Magnolia technique. Performed By: #### C BC, ANEU, TROPHS, GFR, MG, BMP, PRO, PBNP, ADIFF ####[address] [place], [place] [address] Electrolyte Balance 8.0 mEq/L Normal 4.0-15.0 [facility] Comment on above: Performed By: #### C BC, ANEU, TROPHS, GFR, MG, BMP, PRO, PBNP, ADIFF ####[address] [place], [place] [address] Glucose [Mass/Vol] 127 mg/dL High 83-110 [facility] Comment on above: Performed By: #### C BC, ANEU, TROPHS, GFR, MG, BMP, PRO, PBNP, ADIFF ####[address] [place], [place] [address] Potassium [Moles/Vol] 3.1 mmol/L Low 3.5-5.1 [facility] Comment on above: Performed By: #### C BC, ANEU, TROPHS, GFR, MG, BMP, PRO, PBNP, ADIFF ####[address] [place], [place] [address] Sodium [Moles/Vol] 139 mmol/L Normal 136-145 [facility] Comment on above: Performed By: #### C BC, ANEU, TROPHS, GFR, MG, BMP, PRO, PBNP, ADIFF ####[address] [place], [place] [address] Urea nitrogen [Mass/Vol] 13 mg/dL Normal 7-18 [facility] Comment on above: Performed By: #### C BC, ANEU, TROPHS, GFR, MG, BMP, PRO, PBNP, ADIFF ####[address] [place], [place] [address] CBCon 08-15-2024 Erythrocyte distribution width (RBC) [Ratio] 18.6 % High 11.5-15.5 [facility] Comment on above: Performed By: #### C BC, ANEU, TROPHS, GFR, MG, BMP, PRO, PBNP, ADIFF ####[place] [id number] Hematocrit (Bld) [Volume fraction] 34.9 % Low 40.0-52.0 [facility] Comment on above: Performed By: #### C BC, ANEU, TROPHS, GFR, MG, BMP, PRO, PBNP, ADIFF ####[place] [id number] Hgb 11.1 G/dL Low 13.0-17.5 [facility] Comment on above: Performed By: #### C BC, ANEU, TROPHS, GFR, MG, BMP, PRO, PBNP, ADIFF ####[address] [place] [address] MCH (RBC) [Entitic mass] 23.3 pg Low 27.0-33.0 [facility] Comment on above: Performed By: #### C BC, ANEU, TROPHS, GFR, MG, BMP, PRO, PBNP, ADIFF ####[place] [address] MCHC 31.7 G/dL Low 32.0-36.0 [facility] Comment on above: Performed By: #### C BC, ANEU, TROPHS, GFR, MG, BMP, PRO, PBNP, ADIFF ####[place] [id number] MCV (RBC) [Entitic vol] 73.4 fL Low 81.0-100.0 [facility] Comment on above: Performed By: #### C BC, ANEU, TROPHS, GFR, MG, BMP, PRO, PBNP, ADIFF ####[place] [id number] Platelet 330 10 3/mcL Normal 150-450 [facility] Comment on above: Performed By: #### C BC, ANEU, TROPHS, GFR, MG, BMP, PRO, PBNP, ADIFF ####[facility] [place], [place] [address] Platelet mean volume (Bld) [Entitic vol] 7.4 fL Normal 6.4-10.5 [facility] Comment on above: Performed By: #### C BC, ANEU, TROPHS, GFR, MG, BMP, PRO, PBNP, ADIFF ####[address] [place], [place] [address] RBC 4.76 10 6/mcL Normal 4.50-6.00 [facility] Comment on above: Performed By: #### C BC, ANEU, TROPHS, GFR, MG, BMP, PRO, PBNP, ADIFF ####[address] [place], [place] [address] WBC 11.8 10 3/mcL High 4.5-10.8 [facility] Comment on above: Performed By: #### C BC, ANEU, TROPHS, GFR, MG, BMP, PRO, PBNP, ADIFF ####[address] [place], [place] [address] MGon 08-15-2024 Magnesium [Mass/Vol] 2.1 mg/dL Normal 1.8-2.4 [facility] Comment on above: Performed By: #### C BC, ANEU, TROPHS, GFR, MG, BMP, PRO, PBNP, ADIFF ####[facility] [place], [place] [address] PBNPon 08-15-2024 Natriuretic peptide B (Bld) [Mass/Vol] 1651 pg/mL High 0-450 [facility] Comment on above: Result Comment: NT-p roBNP results of less than 300 pg/mL effectively rules out acute congestive heart failure with 99% negative predictive value. Performed By: #### C BC, ANEU, TROPHS, GFR, MG, BMP, PRO, PBNP, ADIFF ####[facility] [place], [place] [address] PROon 08-15-2024 PT Coag (PPP) [Time] 41.7 s High 9.0-14.4 [facility] Comment on above: Order Comment: order ed secondary to warfarin order Performed By: #### C BC, ANEU, TROPHS, GFR, MG, BMP, PRO, PBNP, ADIFF ####[address] [place], [place] [address] PT International Ratio 3.6 Normal [facility] Comment on above: Order Comment: order ed secondary to warfarin order Result Comment: The [place] [employer] (CHEST, 1991, 102:312S-25S) recommended therapeutic range for oral anticoagulant therapy is: LOW RISK: Prophylaxis of venous thrombosis INR: 2.0-3.0 Treatment of pulmonary embolism 2.0-3.0 Prevention of systemic embolism 2.0-3.0 HIGH RISK: Mechanical prosthetic valves 2.5-3.5 Performed By: #### C BC, ANEU, TROPHS, GFR, MG, BMP, PRO, PBNP, ADIFF ####[address] [place], [place] [address] TROPHSon 08-15-2024 High Sensitivity Troponin I 10 ng/L Normal 0-76 [facility] Comment on above: Result Comment: High Sensitive Troponin I Reference Ranges: Female: 0-51 ng/L Male: 0-76 ng/L Testing performed on [employer] using a homogeneous sandwich chemiluminescent immunoassay based on FAGUO technology. Performed By: #### C BC, ANEU, TROPHS, GFR, MG, BMP, PRO, PBNP, ADIFF ####[address] [place], [place] [address] .Auto Diffon 08-14-2024 Basophil, Absolute 0.1 10 3/mcL Normal 0.0-0.2 [facility] Comment on above: Performed By: #### A PTT, MG, GFR, PBNP, CBC, TROPHS, PRO, ADIFF, BMP, ANEU, MDW ####[address] [place], [place] [address] Basophils/100 WBC (Bld) 0.7 % Normal 0.0-2.5 [facility] Comment on above: Performed By: #### A PTT, MG, GFR, PBNP, CBC, TROPHS, PRO, ADIFF, BMP, ANEU, MDW ####[address] [address] Eosinophil, Absolute 0.0 10 3/mcL Normal 0.0-0.7 [facility] Comment on above: Performed By: #### A PTT, MG, GFR, PBNP, CBC, TROPHS, PRO, ADIFF, BMP, ANEU, MDW ####[address] [address] Eosinophils/100 WBC (Bld) 0.3 % Normal 0.0-7.0 [facility] Comment on above: Performed By: #### A PTT, MG, GFR, PBNP, CBC, TROPHS, PRO, ADIFF, BMP, ANEU, MDW ####[address] [address] Lymphocyte, Absolute 0.9 10 3/mcL Normal 0.9-4.3 [facility] Comment on above: Performed By: #### A PTT, MG, GFR, PBNP, CBC, TROPHS, PRO, ADIFF, BMP, ANEU, MDW ####[address] [address] Lymphocytes/100 WBC (Bld) 7.2 % Low 20.0-40.0 [facility] Comment on above: Performed By: #### A PTT, MG, GFR, PBNP, CBC, TROPHS, PRO, ADIFF, BMP, ANEU, MDW ####[address] [place], [place] [address] Monocyte, Absolute 0.7 10 3/mcL Normal 0.1-1.4 [facility] Comment on above: Performed By: #### A PTT, MG, GFR, PBNP, CBC, TROPHS, PRO, ADIFF, BMP, ANEU, MDW ####[address] [address] Monocytes/100 WBC (Bld) 6.0 % Normal 2.0-13.0 [facility] Comment on above: Performed By: #### A PTT, MG, GFR, PBNP, CBC, TROPHS, PRO, ADIFF, BMP, ANEU, MDW ####[address] [address] Neutrophils/100 WBC (Bld) 85.8 % High 50.0-75.0 [facility] Comment on above: Performed By: #### A PTT, MG, GFR, PBNP, CBC, TROPHS, PRO, ADIFF, BMP, ANEU, MDW ####[facility] [place], [place] [address] .GFRon 08-14-2024 Estimated Glomerular Filtration Rate 90 ml/min/1.73sqm Normal [facility] Comment on above: Result Comment: Stages of [...] TROPHS, PRO, ADIFF, BMP, ANEU, MDW #### [address] [address] .MDWon 08-14-2024 Monocyte Distribution Width 19.91 Normal 0.00-20.00 [facility] Comment on above: Result Comment: For ED adult patients suspected of sepsis, MDW<=20.0 does not rule out sepsis or risk of sepsis Performed By: #### A PTT, MG, GFR, PBNP, CBC, TROPHS, PRO, ADIFF, BMP, ANEU, W ####[id number] [place], [place] [address] .NEUABSon 08-14-2024 Neutrophil, Absolute 10.7 10 3/mcL High 2.3-8.1 A [facility] Comment on above: Performed By: #### A PTT, MG, GFR, PBNP, CBC, TROPHS, PRO, ADIFF, BMP, ANEU, MDW ####[address] [address] APTTon 08-14-2024 aPTT Coag (Bld) [Time] 37.1 s High 25.0-35.0 [facility] Comment on above: Result Comment: For Heparin anticoagulation therapy, the recommended therapeutic range is: 45.4-75.9 seconds. Patients on heparin therapy may have an extreme result. Performed By: #### A PTT, MG, GFR, PBNP, CBC, TROPHS, PRO, ADIFF, BMP, RISA ORELLANA #### [address] [address] BMPon 08-14-2024 BUN/Creatinine Ratio 13 ratio Normal 7-27 [facility] Comment on above: Performed By: #### A PTT, MG, GFR, PBNP, CBC, TROPHS, PRO, ADIFF, BMP, RISA ORELLANA #### [address] [address] Calcium [Mass/Vol] 8.8 mg/dL Normal 8.4-10.2 [facility] Comment on above: Performed By: #### A PTT, MG, GFR, PBNP, CBC, TROPHS, PRO, ADIFF, BMP, RISA ORELLANA #### [address] [address] Chloride [Moles/Vol] 103 mmol/L Normal 98-107 [facility] Comment on above: Performed By: #### A PTT, MG, GFR, PBNP, CBC, TROPHS, PRO, ADIFF, BMP, RISA ORELLANA #### [address] [address] CO2 [Moles/Vol] 25 mmol/L Normal 23-31 [facility] Comment on above: Performed By: #### A PTT, MG, GFR, PBNP, CBC, TROPHS, PRO, ADIFF, BMP, RISA ORELLANA #### [address] [address] Creatinine [Mass/Vol] 0.87 mg/dL Normal 0.70-1.30 [facility] Comment on above: Result Comment: Test ing performed on Siemens Dimension EXL analyzer using a modified kinetic Magnolia technique. Performed By: #### A PTT, MG, GFR, PBNP, CBC, TROPHS, PRO, ADIFF, BMP, ANEU, MDW #### [address] [address] Electrolyte Balance 11.0 mEq/L Normal 4.0-15.0 [facility] Comment on above: Performed By: #### A PTT, MG, GFR, PBNP, CBC, TROPHS, PRO, ADIFF, BMP, ANEU, MDW #### [address] [address] Glucose [Mass/Vol] 147 mg/dL High 83-110 [facility] Comment on above: Performed By: #### A PTT, MG, GFR, PBNP, CBC, TROPHS, PRO, ADIFF, BMP, ANEU, MDW #### [address] [address] Potassium [Moles/Vol] 3.7 mmol/L Normal 3.5-5.1 [facility] Comment on above: Performed By: #### A PTT, MG, GFR, PBNP, CBC, TROPHS, PRO, ADIFF, BMP, ANEU, MDW #### [address] [address] Sodium [Moles/Vol] 139 mmol/L Normal 136-145 [facility] Comment on above: Performed By: #### A PTT, MG, GFR, PBNP, CBC, TROPHS, PRO, ADIFF, BMP, ANEU, MDW #### [address] [address] Urea nitrogen [Mass/Vol] 11 mg/dL Normal 7-18 [facility] Comment on above: Performed By: #### A PTT, MG, GFR, PBNP, CBC, TROPHS, PRO, ADIFF, BMP, ANEU, MDW #### [address] [address] CBCon 08-14-2024 Erythrocyte distribution width (RBC) [Ratio] 18.1 % High 11.5-15.5 [facility] Comment on above: Performed By: #### A PTT, MG, GFR, PBNP, CBC, TROPHS, PRO, ADIFF, BMP, ANEU, RISA ####[address] [place], [place] [address] Hematocrit (Bld) [Volume fraction] 35.3 % Low 40.0-52.0 [facility] Comment on above: Performed By: #### A PTT, MG, GFR, PBNP, CBC, TROPHS, PRO, ADIFF, BMP, ANEU, RISA ####[id number] [address] Hgb 11.2 G/dL Low 13.0-17.5 [facility] Comment on above: Performed By: #### A PTT, MG, GFR, PBNP, CBC, TROPHS, PRO, ADIFF, BMP, ANEU, RISA ####[place] [address] MCH (RBC) [Entitic mass] 23.3 pg Low 27.0-33.0 [facility] Comment on above: Performed By: #### A PTT, MG, GFR, PBNP, CBC, TROPHS, PRO, ADIFF, BMP, ANEU, RISA ####[id number] [id number] MCHC 31.6 G/dL Low 32.0-36.0 [facility] Comment on above: Performed By: #### A PTT, MG, GFR, PBNP, CBC, TROPHS, PRO, ADIFF, BMP, ANEU, RISA ####[address] [place] [address] MCV (RBC) [Entitic vol] 73.7 fL Low 81.0-100.0 [facility] Comment on above: Performed By: #### A PTT, MG, GFR, PBNP, CBC, TROPHS, PRO, ADIFF, BMP, ANEU, RISA ####[address] [place] [address] Platelet 332 10 3/mcL Normal 150-450 [facility] Comment on above: Performed By: #### A PTT, MG, GFR, PBNP, CBC, TROPHS, PRO, ADIFF, BMP, ANEURISA ####[facility] [place], [place] [address] Platelet mean volume (Bld) [Entitic vol] 7.2 fL Normal 6.4-10.5 [facility] Comment on above: Performed By: #### A PTT, MG, GFR, PBNP, CBC, TROPHS, PRO, ADIFF, BMP, ANEURISA ####[place] [address] [place], [place] [address] RBC 4.78 10 6/mcL Normal 4.50-6.00 [facility] Comment on above: Performed By: #### A PTT, MG, GFR, PBNP, CBC, TROPHS, PRO, ADIFF, BMP, RISA ORELLANA ####[place] [address] [place], [place] [address] WBC 12.5 10 3/mcL High 4.5-10.8 [facility] Comment on above: Performed By: #### A PTT, MG, GFR, PBNP, CBC, TROPHS, PRO, ADIFF, BMP, RISA ORELLANA ####[place] [address] [place], [place] [address] MGon 08-14-2024 Magnesium [Mass/Vol] 1.7 mg/dL Low 1.8-2.4 [facility] Comment on above: Performed By: #### A PTT, MG, GFR, PBNP, CBC, TROPHS, PRO, ADIFF, BMP, RISA ORELLANA #### [place] [address] [place], [place] [address] PBNPon 08-14-2024 Natriuretic peptide B (Bld) [Mass/Vol] 2398 pg/mL High 0-450 [facility] Comment on above: Result Comment: NT-p roBNP results of less than 300 pg/mL effectively rules out acute congestive heart failure with 99% negative predictive value. Performed By: #### A PTT, MG, GFR, PBNP, CBC, TROPHS, PRO, ADIFF, BMP, RISA ORELLANA #### [address] [address] PROon 08-14-2024 PT Coag (PPP) [Time] 46.0 s High 9.0-14.4 [facility] Comment on above: Order Comment: order ed secondary to warfarin order Performed By: #### A PTT, MG, GFR, PBNP, CBC, TROPHS, PRO, ADIFF, BMP, RISA ORELLANA #### [address] [address] PT International Ratio 3.9 Normal [facility] Comment on above: Order Comment: order ed secondary to warfarin order Result Comment: The [place] [employer] (CHEST, 1992, 102:312S-25S) recommended therapeutic range for oral anticoagulant therapy is: LOW RISK: Prophylaxis of venous thrombosis INR: 2.0-3.0 Treatment of pulmonary embolism 2.0-3.0 Prevention of systemic embolism 2.0-3.0 HIGH RISK: Mechanical prosthetic valves 2.5-3.5 Performed By: #### A PTT, MG, GFR, PBNP, CBC, TROPHS, PRO, ADIFF, BMP, RISA ORELLANA #### [address] [address] PT Coag (PPP) [Time] 34.1 s High 9.0-14.4 [facility] Comment on above: Performed By: #### A PTT, MG, GFR, PBNP, CBC, TROPHS, PRO, ADIFF, BMP, RISA ORELLANA #### [address] [address] PT International Ratio 2.9 Normal [facility] Comment on above: Result Comment: The [place] [employer] (CHEST, 1992, 102:312S-25S) recommended therapeutic range for oral anticoagulant therapy is: LOW RISK: Prophylaxis of venous thrombosis INR: 2.0-3.0 Treatment of pulmonary embolism 2.0-3.0 Prevention of systemic embolism 2.0-3.0 HIGH RISK: Mechanical prosthetic valves 2.5-3.5 Performed By: #### A PTT, MG, GFR, PBNP, CBC, TROPHS, PRO, ADIFF, BMP, ANEU, MDW #### [place] [address] [place], [place] [address] TROPHSon 08-14-2024 High Sensitivity Troponin I 11 ng/L Normal 0-76 [facility] Comment on above: Result Comment: High Sensitive Troponin I Reference Ranges: Female: 0-51 ng/L Male: 0-76 ng/L Testing performed on Dimension EXMentorDOTMe using a homogeneous sandwich chemiluminescent immunoassay based on FAGUO technology. Performed By: #### A PTT, MG, GFR, PBNP, CBC, TROPHS, PRO, ADIFF, BMP, ANEU, MDW #### [address] [address] High Sensitivity Troponin I 10 ng/L Normal 0-76 [facility] Comment on above: Result Comment: High Sensitive Troponin I Reference Ranges: Female: 0-51 ng/L Male: 0-76 ng/L Testing performed on [employer] using a homogeneous sandwich chemiluminescent immunoassay based on FAGUO technology. Performed By: #### A PTT, MG, GFR, PBNP, CBC, TROPHS, PRO, ADIFF, BMP, ANEU, MDW #### [address] [address] High Sensitivity Troponin I 11 ng/L Normal 0-76 [facility] Comment on above: Result Comment: High Sensitive Troponin I Reference Ranges: Female: 0-51 ng/L Male: 0-76 ng/L Testing performed on [employer] EXMentorDOTMe using a homogeneous sandwich chemiluminescent immunoassay based on FAGUO technology. Performed By: #### A PTT, MG, GFR, PBNP, CBC, TROPHS, PRO, ADIFF, BMP, ANEU, MDW #### [address] [address] XR CHEST 1 VIEWon 08-14-2024 XR CHEST [...] 08/14/2024 12:17:29 PM Ordering Provider: BASSEM BRONSON [facility] Low Dose CT Lung Screeningon 03-10-[address] Lung Screening [facility] [address] [place] [id number] Lung Screening MR#: [id number] Acct: [id number] Name: ANGI JACKSON Rep #: [id number] : 1950 M 74 From: Ammon akins MD PCP: PRAKASH Lanier Status: REG CLI Study: Low Dose CT Lung Screening Date of Exam: 03/10 Exam# [id number] Ordering Dr: Breanne Mejia MD [id number] STUDY: LOW DOSE CT LUNG CANCER SCREENING [...] Signed: Ammon Gonzales MD at 22:55 EDT , CC: PRAKASH Harper; Dr. Breanne Mejia MD Inspector Brake Lining: Signed [facility] CT ABDOMEN/PELVIS W/CONTRAST on 02-04-2024 CT [...] Date: 02/04/2024 7:58:37 AM Ordering Provider: MARCOS HARPER [facility] CT THORAX W/ CONTRASTon 01-24 CT THORAX [...] 02/04/2024 10:28:19 AM Ordering Provider: MARCOS Gasca [facility] .Auto Diffon 02-03-2024 Basophil, Absolute 0.1 10 3/mcL Normal 0.0-0.2 [facility] Comment on above: Performed By: #### A DIFF, GFR, ANEU, LIP, CBC, CMP, CASIMIRO ####[facility] [place], [place] [address] Basophils/100 WBC (Bld) 1.3 % Normal 0.0-2.5 [facility] Comment on above: Performed By: #### A DIFF, GFR, ANEU, LIP, CBC, CMP, CASIMIRO ####[facility] [place], [place] [address] Eosinophil, Absolute 0.2 10 3/mcL Normal 0.0-0.4 [facility] Comment on above: Performed By: #### A DIFF, GFR, ANEU, LIP, CBC, CMP, CASIMIRO ####[facility] [place], [place] [address] Eosinophils/100 WBC (Bld) 1.6 % Normal 0.0-7.0 [facility] Comment on above: Performed By: #### A DIFF, GFR, ANEU, LIP, CBC, CMP, CASIMIRO ####[facility] [place], [place] [address] Lymphocyte, Absolute 1.8 10 3/mcL Normal 0.8-3.9 [facility] Comment on above: Performed By: #### A DIFF, GFR, ANEU, LIP, CBC, CMP, CASIMIRO ####[facility] [place], [place] [address] Lymphocytes/100 WBC (Bld) 18.0 % Normal 10.0-50.0 [facility] Comment on above: Performed By: #### A DIFF, GFR, ANEU, LIP, CBC, CMP, CASIMIRO ####[facility] [place], [place] [address] Monocyte, Absolute 0.9 10 3/mcL Normal 0.2-1.0 [facility] Comment on above: Performed By: #### A DIFF, GFR, ANEU, LIP, CBC, CMP, CASIMIRO ####[place] [address] [place], [place] [address] Monocytes/100 WBC (Bld) 8.6 % Normal 1.7-13.0 [facility] Comment on above: Performed By: #### A DIFF, GFR, ANEU, LIP, CBC, CMP, CASIMIRO ####[place] [address] [place], [place] [address] Neutrophils/100 WBC (Bld) 70.5 % Normal 37.0-80.0 [facility] Comment on above: Performed By: #### A DIFF, GFR, ANEU, LIP, CBC, CMP, CASIMIRO ####[facility] [place], [place] [address] .GFRon 02-03-2024 GFR 85 ml/min/1.73sqm Normal [facility] Comment on above: Result Comment: GFR Population [...] DIFF, GFR, ANEU, LIP, CBC, CMP, CASIMIRO ####[facility] [place], [place] [address] GFR Non- 70 ml/min/1.73sqm Normal [facility] Comment on above: Result Comment: GFR Population [...] DIFF, GFR, ANEU, LIP, CBC, CMP, CASIMIRO ####[address] [address] .NEUABSon 02-03-2024 Neutrophil, Absolute 7.2 10 3/mcL High 2.9-6.2 [facility] Comment on above: Performed By: #### A DIFF, GFR, ANEU, LIP, CBC, CMP, CASIMIRO ####[place] [address] [place], [place] [address] AMYon 02-03-2024 Amylase [Catalytic activity/Vol] 42 U/L Normal 25-115 [facility] Comment on above: Performed By: #### A DIFF, GFR, ANEU, LIP, CBC, CMP, CASIMIRO ####[place] [address] [place], [place] [address] CBCon 02-03-2024 Erythrocyte distribution width (RBC) [Ratio] 16.8 % High 11.5-14.5 [facility] Comment on above: Performed By: #### A DIFF, GFR, ANEU, LIP, CBC, CMP, CASIMIRO ####[address] [address] Hematocrit (Bld) [Volume fraction] 43.5 % Normal 42.0-52.0 [facility] Comment on above: Performed By: #### A DIFF, GFR, ANEU, LIP, CBC, CMP, CASIMIRO ####[place] [address] Hgb 14.1 G/dL Normal 14.0-18.0 [facility] Comment on above: Performed By: #### A DIFF, GFR, ANEU, LIP, CBC, CMP, CASIMIRO ####[place] [address] [place] [address] MCH (RBC) [Entitic mass] 26.8 pg Low 27.0-31.2 [facility] Comment on above: Performed By: #### A DIFF, GFR, ANEU, LIP, CBC, CMP, CASIMIRO ####[place] [address] MCHC 32.3 G/dL Normal 31.8-35.4 [facility] Comment on above: Performed By: #### A DIFF, GFR, ANEU, LIP, CBC, CMP, CASIMIRO ####[place] [id number] MCV (RBC) [Entitic vol] 83.0 fL Normal 80.0-94.0 [facility] Comment on above: Performed By: #### A DIFF, GFR, ANEU, LIP, CBC, CMP, CASIMIRO ####[place] [id number] Platelet 337 10 3/mcL Normal 130-400 [facility] Comment on above: Performed By: #### A DIFF, GFR, ANEU, LIP, CBC, CMP, CASIMIRO ####[place] [id number] Platelet mean volume (Bld) [Entitic vol] 7.1 fL Low 7.4-10.4 [facility] Comment on above: Performed By: #### A DIFF, GFR, ANEU, LIP, CBC, CMP, CASIMIRO ####[facility] [place], [place] [address] RBC 5.25 10 6/mcL Normal 4.04-6.13 [facility] Comment on above: Performed By: #### A DIFF, GFR, ANEU, LIP, CBC, CMP, CASIMIRO ####[place] [address] [place], [place] [address] WBC 10.2 10 3/mcL Normal 4.6-10.8 [facility] Comment on above: Performed By: #### A DIFF, GFR, ANEU, LIP, CBC, CMP, CASIMIRO ####[place] [address] [place], [place] [address] CMPon 02-03-2024 Albumin Level 3.4 G/dL Normal 3.4-4.8 [facility] Comment on above: Performed By: #### A DIFF, GFR, ANEU, LIP, CBC, CMP, CASIMIRO ####[address] [address] Albumin/Globulin [Mass ratio] 0.9 {ratio} Low 1.1-2.5 [facility] Comment on above: Performed By: #### A DIFF, GFR, ANEU, LIP, CBC, CMP, CASIMIRO ####[address] [address] ALP [Catalytic activity/Vol] 121 U/L Normal 40-135 [facility] Comment on above: Performed By: #### A DIFF, GFR, ANEU, LIP, CBC, CMP, CASIMIRO ####[address] [address] ALT [Catalytic activity/Vol] 27 U/L Normal 16-63 [facility] Comment on above: Performed By: #### A DIFF, GFR, ANEU, LIP, CBC, CMP, CASIMIRO ####[address] [address] AST [Catalytic activity/Vol] 24 U/L Normal 10-40 [facility] Comment on above: Performed By: #### A DIFF, GFR, ANEU, LIP, CBC, CMP, CASIMIRO ####[place] [id number] Bili Total 0.7 mg/dL Normal 0.2-1.0 [facility] Comment on above: Result Comment: Use of this assay is not recommended for patients undergoing treatment with eltrombopag due to the potential for falsely elevated results. Performed By: #### A DIFF, GFR, ANEU, LIP, CBC, CMP, CASIMIRO ####[place] [address] BUN/Creatinine Ratio 10 ratio Normal 7-27 [facility] Comment on above: Performed By: #### A DIFF, GFR, ANEU, LIP, CBC, CMP, CASIMIRO ####[place] [address] [place] [address] Calcium [Mass/Vol] 9.3 mg/dL Normal 8.4-10.2 [facility] Comment on above: Performed By: #### A DIFF, GFR, ANEU, LIP, CBC, CMP, CASIMIRO ####[place] [address] Chloride [Moles/Vol] 98 mmol/L Normal 98-107 [facility] Comment on above: Performed By: #### A DIFF, GFR, ANEU, LIP, CBC, CMP, CASIMIRO ####[place] [address] CO2 [Moles/Vol] 32 mmol/L High 23-31 [facility] Comment on above: Performed By: #### A DIFF, GFR, ANEU, LIP, CBC, CMP, CASIMIRO ####[place] [address] Creatinine [Mass/Vol] 1.04 mg/dL Normal 0.70-1.30 [facility] Comment on above: Result Comment: Test ing performed on Siemens Dimension EXL analyzer using a modified kinetic Magnolia technique. Performed By: #### A DIFF, GFR, ANEU, LIP, CBC, CMP, CASIMIRO ####[place] [address] Electrolyte Balance 6.0 mEq/L Normal 4.0-15.0 [facility] Comment on above: Performed By: #### A DIFF, GFR, ANEU, LIP, CBC, CMP, CASIMIRO ####[address] [address] Globulin 3.6 G/dL Normal [facility] Comment on above: Performed By: #### A DIFF, GFR, ANEU, LIP, CBC, CMP, CASIMIRO ####[facility] [place], [place] [address] Glucose [Mass/Vol] 109 mg/dL Normal 83-110 [facility] Comment on above: Performed By: #### A DIFF, GFR, ANEU, LIP, CBC, CMP, CASIMIRO ####[place] [address] [place], [place] [address] Potassium [Moles/Vol] 4.0 mmol/L Normal 3.5-5.1 [facility] Comment on above: Performed By: #### A DIFF, GFR, ANEU, LIP, CBC, CMP, CASIMIRO ####[address] [address] Sodium [Moles/Vol] 136 mmol/L Normal 136-145 [facility] Comment on above: Performed By: #### A DIFF, GFR, ANEU, LIP, CBC, CMP, CASIMIRO ####[place] [address] [place], [place] [address] Total Protein 7.0 G/dL Normal 6.4-8.2 [facility] Comment on above: Performed By: #### A DIFF, GFR, ANEU, LIP, CBC, CMP, CASIMIRO ####[address] [address] Urea nitrogen [Mass/Vol] 10 mg/dL Normal 7-18 [facility] Comment on above: Performed By: #### A DIFF, GFR, ANEU, LIP, CBC, CMP, CASIMIRO ####[place] [address] [place], [place] [address] LABORATORYOrdered By: SYSTEM SYSTEM on 02-03-2024 Albumin [...] 02-03-2024 Lipase Level 22 U/L Normal 16-77 [facility] Comment on above: Performed By: #### A DIFF, GFR, ANEU, LIP, CBC, CMP, CASIMIRO ####[place] [address] .Auto Diffon 01-20-2024 Basophil, Absolute 0.1 10 3/mcL Normal 0.0-0.2 [facility] ([place]) Comment on above: Performed By: #### A DIFF, CMP, ANEU, GFR, CBC #### [address] [address] Basophils/100 WBC (Bld) 1.0 % Normal 0.0-2.5 [facility] ([place]) Comment on above: Performed By: #### A DIFF, CMP, ANEU, GFR, CBC #### [address] [address] Eosinophil, Absolute 0.2 10 3/mcL Normal 0.0-0.4 [facility] ([place]) Comment on above: Performed By: #### A DIFF, CMP, ANEU, GFR, CBC #### [address] [address] Eosinophils/100 WBC (Bld) 1.4 % Normal 0.0-7.0 [facility] ([place]) Comment on above: Performed By: #### A DIFF, CMP, ANEU, GFR, CBC #### [address] [address] Lymphocyte, Absolute 1.6 10 3/mcL Normal 0.8-3.9 [facility] ([place]) Comment on above: Performed By: #### A DIFF, CMP, ANEU, GFR, CBC #### [address] [address] Lymphocytes/100 WBC (Bld) 14.0 % Normal 10.0-50.0 [facility] ([place] Comment on above: Performed By: #### A DIFF, CMP, ANEU, GFR, CBC #### [address] [address] Monocyte, Absolute 1.0 10 3/mcL Normal 0.2-1.0 [facility] ([place]) Comment on above: Performed By: #### A DIFF, CMP, ANEU, GFR, CBC #### [address] [address] Monocytes/100 WBC (Bld) 8.5 % Normal 1.7-13.0 [facility] ([place]) Comment on above: Performed By: #### A DIFF, CMP, ANEU, GFR, CBC #### [address] [address] Neutrophils/100 WBC (Bld) 75.1 % Normal 37.0-80.0 [facility] ([place] Comment on above: Performed By: #### A DIFF, CMP, ANEU, GFR, CBC #### [address] [address] .GFRon 01-20-2024 GFR 81 ml/min/1.73sqm Normal [facility] ([place]) Comment on above: Result Comment: GFR Population [...] A DIFF, CMP, ANEU, GFR, CBC #### [address] [address] GFR Non- 67 ml/min/1.73sqm Normal [facility] ([place]) Comment on above: Result Comment: GFR Population [...] A DIFF, CMP, ANEU, GFR, CBC #### [address] [address] .NEUABSon 01-20-2024 Neutrophil, Absolute 8.7 10 3/mcL High 2.9-6.2 [facility] ([place]) Comment on above: Performed By: #### A DIFF, CMP, ANEU, GFR, CBC #### [address] [address] CBCon 01-20-2024 Erythrocyte distribution width (RBC) [Ratio] 16.9 % High 11.5-14.5 [facility] ([place] Comment on above: Performed By: #### A DIFF, CMP, ANEU, GFR, CBC #### [place] [address] Hematocrit (Bld) [Volume fraction] 43.4 % Normal 42.0-52.0 [facility] ([place] Comment on above: Performed By: #### A DIFF, CMP, ANEU, GFR, CBC #### [place] [id number] Hgb 13.9 G/dL Low 14.0-18.0 [facility] ([place] Comment on above: Performed By: #### A DIFF, CMP, ANEU, GFR, CBC #### [place] [id number] MCH (RBC) [Entitic mass] 26.9 pg Low 27.0-31.2 [facility] ([place] Comment on above: Performed By: #### A DIFF, CMP, ANEU, GFR, CBC #### [place] [id number] MCHC 31.9 G/dL Normal 31.8-35.4 [facility] ([place] Comment on above: Performed By: #### A DIFF, CMP, ANEU, GFR, CBC #### [place] [address] MCV (RBC) [Entitic vol] 84.4 fL Normal 80.0-94.0 [facility] ([place]) Comment on above: Performed By: #### A DIFF, CMP, ANEU, GFR, CBC #### [address] [address] Platelet 376 10 3/mcL Normal 130-400 [facility] ([place] Comment on above: Performed By: #### A DIFF, CMP, ANEU, GFR, CBC #### [address] [address] Platelet mean volume (Bld) [Entitic vol] 7.9 fL Normal 7.4-10.4 [facility] ([place] Comment on above: Performed By: #### A DIFF, CMP, ANEU, GFR, CBC #### [address] [address] RBC 5.15 10 6/mcL Normal 4.04-6.13 [facility] ([place] Comment on above: Performed By: #### A DIFF, CMP, ANEU, GFR, CBC #### [address] [address] WBC 11.6 10 3/mcL High 4.6-10.8 [facility] ([place] Comment on above: Performed By: #### A DIFF, CMP, ANEU, GFR, CBC #### [address] [address] CMPon 01-20-2024 Albumin Level 3.4 G/dL Normal 3.4-4.8 [facility] ([place] Comment on above: Performed By: #### A DIFF, CMP, ANEU, GFR, CBC #### [address] [address] Albumin/Globulin [Mass ratio] 0.9 {ratio} Low 1.1-2.5 [facility] ([place] Comment on above: Performed By: #### A DIFF, CMP, ANEU, GFR, CBC #### [address] [address] ALP [Catalytic activity/Vol] 121 U/L Normal 40-135 [facility] ([place] Comment on above: Performed By: #### A DIFF, CMP, ANEU, GFR, CBC #### [address] [address] ALT [Catalytic activity/Vol] 31 U/L Normal 16-63 [facility] ([place] Comment on above: Performed By: #### A DIFF, CMP, ANEU, GFR, CBC #### [address] [address] AST [Catalytic activity/Vol] 28 U/L Normal 10-40 [facility] ([place] Comment on above: Performed By: #### A DIFF, CMP, ANEU, GFR, CBC #### [address] [address] Bili Total 0.6 mg/dL Normal 0.2-1.0 [facility] ([place]) Comment on above: Result Comment: Use of this assay is not recommended for patients undergoing treatment with eltrombopag due to the potential for falsely elevated results. Performed By: #### A DIFF, CMP, ANEU, GFR, CBC #### [address] [address] BUN/Creatinine Ratio 8 ratio Normal 7-27 [facility] ([place]) Comment on above: Performed By: #### A DIFF, CMP, ANEU, GFR, CBC #### [address] [address] Calcium [Mass/Vol] 9.2 mg/dL Normal 8.4-10.2 [facility] ([place]) Comment on above: Performed By: #### A DIFF, CMP, ANEU, GFR, CBC #### [address] [address] Chloride [Moles/Vol] 104 mmol/L Normal 98-107 [facility]) Comment on above: Performed By: #### A DIFF, CMP, ANEU, GFR, CBC #### [address] [address] CO2 [Moles/Vol] 25 mmol/L Normal 23-31 [facility] ([place]) Comment on above: Performed By: #### A DIFF, CMP, ANEU, GFR, CBC #### [address] [address] Creatinine [Mass/Vol] 1.08 mg/dL Normal 0.70-1.30 [facility] ([place]) Comment on above: Performed By: #### A DIFF, CMP, ANEU, GFR, CBC #### [address] [address] Electrolyte Balance 10.0 mEq/L Normal 4.0-15.0 [facility] ([place]) Comment on above: Performed By: #### A DIFF, CMP, ANEU, GFR, CBC #### [address] [address] Globulin 3.9 G/dL Normal [facility], [facility] ([place]) Comment on above: Performed By: #### A DIFF, CMP, ANEU, GFR, CBC #### [address] [address] Glucose [Mass/Vol] 145 mg/dL High 83-110 [facility] ([place]) Comment on above: Performed By: #### A DIFF, CMP, ANEU, GFR, CBC #### [address] [address] Potassium [Moles/Vol] 3.7 mmol/L Normal 3.5-5.1 [facility] ([place]) Comment on above: Performed By: #### A DIFF, CMP, ANEU, GFR, CBC #### [address] [address] Sodium [Moles/Vol] 139 mmol/L Normal 136-145 [facility] ([place]) Comment on above: Performed By: #### A DIFF, CMP, ANEU, GFR, CBC #### [address] [address] Total Protein 7.3 G/dL Normal 6.4-8.2 [facility] ([place]) Comment on above: Performed By: #### A DIFF, CMP, ANEU, GFR, CBC #### [address] [address] Urea nitrogen [Mass/Vol] 9 mg/dL Normal 7-18 [facility] ([place]) Comment on above: Performed By: #### A DIFF, CMP, ANEU, GFR, CBC #### [id number] [place], [place] [address] LABORATORYOrdered By: SYSTEM SYSTEM on 01-20-2024 Albumin [...] it is assumed that there are 5 [id number], lumbar-type vertebrae, and the most caudal fully [...] 12/27/2023 8:00:24 AM Ordering Provider: JENNIFER CABELLO [facility] ([place]) CT [facility] THORAX SCREENING W/O CONTRAST ORIGINAL [...] Date: 10/08/2023 9:33:34 AM Ordering Provider: MARCOS Gasca [facility] ([place]) Ameena 02-19-2023 U Creatinine 110.7 mg/dL Normal 39.0-259.0 [facility]) Comment on above: Performed By: #### M ALBR #### [id number] [place], [place] [address] U Microalb [address] mcg/dL Normal [facility]) Comment on above: Performed By: #### M ALBR #### [id number] [place], [place] [address] U Ratio Alb/Cre 125 mcg/mg High 0-30 [facility]) Comment on above: Performed By: #### M ALBR #### [address] [address] LABORATORYOrdered By: Nayla Frye on 08-12-2022 Creatinine [...] hormone (TSH) 1.59 mcIU/mL Normal 0.27-4.20 [facility] Comment on above: Performed By: #### T ####[address] [address] Vital Signs Date Time Vital Sign Value Performing Clinician Rosalba hernadez 12-16-2024 13:44-0400 Body height 182.88 cm Marcos BYRNESC Work Phone: [facility] 12-16-2024 13:44-0400 Body mass index (BMI) [Ratio] 28.6 kg/m2 Marcos Harper NP-C Work Phone: [facility] 12-16-2024 13:44-0400 Body weight 95.7 kg Marcos Harper NP-C Work Phone: [facility] 12-16-2024 13:44-0400 Diastolic blood pressure 62 mm[Hg] Marcos Harper NP-C Work Phone: [facility] 12-16-2024 13:44-0400 Heart rate 46 /min Marcos Baltes TRAVEL PT-C Work Phone: [facility] 12-16-2024 13:44-0400 Respiratory rate 16 /min Marcos Baltes TRAVEL PT-C Work Phone: [facility] 12-16-2024 13:44-0400 SaO2% (BldA) [Mass fraction] 98 % Marcos Baltes TRAVEL PT-C Work Phone: [facility] 12-16-2024 13:44-0400 Systolic blood pressure 118 mm[Hg] Marcos Baltes TRAVEL PT-C Work Phone: [facility] 12-01-2024 12:00-0400 Body temperature 96.8 [degF] Marcos Baltes TRAVEL PT-C Work Phone: [facility] 12-01-2024 12:00-0400 Diastolic blood pressure 70 mm[Hg] Marcos Baltes TRAVEL PT-C Work Phone: [facility] 12-01-2024 12:00-0400 Heart rate 69 /min Marcos Baltes TRAVEL PT-C Work Phone: [facility] 12-01-2024 12:00-0400 Respiratory rate 17 /min Marcos Baltes TRAVEL PT-C Work Phone: [facility] 12-01-2024 12:00-0400 SaO2% (BldA) [Mass fraction] 97 % Marcos Baltes TRAVEL PT-C Work Phone: [facility] 12-01-2024 12:00-0400 Systolic blood pressure 129 mm[Hg] Marcos Baltes TRAVEL PT-C Work Phone: [facility] 12-01-2024 05:38-0400 Body mass index (BMI) [Ratio] 28 kg/m2 Marcos Baltes TRAVEL PT-C Work Phone: [facility] 12-01-2024 05:38-0400 Body weight 93.7 kg Marcos Baltes TRAVEL PT-C Work Phone: [facility] 12-01-2024 03:19-0400 Inhaled oxygen flow rate 2 L/min Marcos Baltes TRAVEL PT-C Work Phone: [facility] 11-30-2024 08:01-0400 Diastolic blood pressure 77 mm[Hg] Marcos Baltes TRAVEL PT-C Work Phone: [facility] 11-30-2024 08:01-0400 Heart rate 69 /min Marcos Baltes TRAVEL PT-C Work Phone: [facility] 11-30-2024 08:01-0400 Respiratory rate 17 /min Marcos Baltes TRAVEL PT-C Work Phone: [facility] 11-30-2024 08:01-0400 SaO2% (BldA) [Mass fraction] 100 % Marcos Baltes TRAVEL PT-C Work Phone: [facility] 11-30-2024 08:01-0400 Systolic blood pressure 107 mm[Hg] Marcos Baltes TRAVEL PT-C Work Phone: [facility] 11-30-2024 04:00-0400 Body temperature 97.2 [degF] Marcos Baltes TRAVEL PT-C Work Phone: [facility] 11-30-2024 04:00-0400 Inhaled oxygen flow rate 2 L/min Marcos Baltes TRAVEL PT-C Work Phone: [facility] 11-30-2024 01:58-0400 Body mass index (BMI) [Ratio] 28.7 kg/m2 Marcos Baltes TRAVEL PT-C Work Phone: [facility] 11-30-2024 01:58-0400 Body weight 96.1 kg Marcos Baltes TRAVEL PT-C Work Phone: [facility] 11-29-2024 12:21-0400 Body height 182.88 cm Marcos Baltes TRAVEL PT-C Work Phone: [facility] 11-05-2024 11:21-0400 Body height 182.88 cm Marcos Baltes TRAVEL PT-C Work Phone: [facility] 11-05-2024 11:21-0400 Body mass index (BMI) [Ratio] 28.8 kg/m2 Marcos Baltes TRAVEL PT-C Work Phone: [facility] 11-05-2024 11:21-0400 Body weight 96.61 kg Marcos Baltes TRAVEL PT-C Work Phone: [facility] 11-05-2024 11:21-0400 Diastolic blood pressure 64 mm[Hg] Marcos Baltes TRAVEL PT-C Work Phone: [facility] 11-05-2024 11:21-0400 Heart rate 53 /min Marcos Baltes TRAVEL PT-C Work Phone: [facility] 11-05-2024 11:21-0400 Respiratory rate 18 /min Marcos Baltes TRAVEL PT-C Work Phone: [facility] 11-05-2024 11:21-0400 Systolic blood pressure 114 mm[Hg] Marcos Baltes TRAVEL PT-C Work Phone: [facility] 09-17-2024 11:12-0400 Body height 182.88 cm Marcos Baltes TRAVEL PT-C Work Phone: [facility] 09-17-2024 11:12-0400 Body mass index (BMI) [Ratio] 30.1 kg/m2 Marcos Baltes TRAVEL PT-C Work Phone: [facility] 09-17-2024 11:12-0400 Body weight 100.69 kg Marcos Baltes TRAVEL PT-C Work Phone: [facility] 09-17-2024 11:12-0400 Diastolic blood pressure 65 mm[Hg] Marcos Baltes TRAVEL PT-C Work Phone: [facility] 09-17-2024 11:12-0400 Heart rate 64 /min Marcos Baltes TRAVEL PT-C Work Phone: [facility] 09-17-2024 11:12-0400 Respiratory rate 18 /min Marcos Baltes TRAVEL PT-C Work Phone: [facility] 09-17-2024 11:12-0400 Systolic blood pressure 118 mm[Hg] Marcos Baltes TRAVEL PT-C Work Phone: [facility] 08-20-2024 07:58-0400 Body height 182.88 cm Marcos Baltes TRAVEL PT-C Work Phone: [facility] 08-20-2024 07:58-0400 Body mass index (BMI) [Ratio] 30.1 kg/m2 Marcos Baltes TRAVEL PT-C Work Phone: [facility] 08-20-2024 07:58-0400 Body weight 100.69 kg Marcos Baltes TRAVEL PT-C Work Phone: [facility] 08-20-2024 07:58-0400 Diastolic blood pressure 70 mm[Hg] Marcos Baltes TRAVEL PT-C Work Phone: [facility] 08-20-2024 07:58-0400 Heart rate 58 /min Marcos Baltes TRAVEL PT-C Work Phone: [facility] 08-20-2024 07:58-0400 Respiratory rate 20 /min Marcos Baltes TRAVEL PT-C Work Phone: [facility] 08-20-2024 07:58-0400 Systolic blood pressure 121 mm[Hg] Marcos Baltes TRAVEL PT-C Work Phone: [facility] 07-17-2023 15:47-0500 Body height 182.88 cm TRAVEL PT-C Ilene Anderson TRAVEL PT Work Phone: [facility] 07-17-2023 15:47-0500 Body mass index (BMI) [Ratio] 30.1 kg/m2 TRAVEL PT-C Ilene Anderson TRAVEL PT Work Phone: [facility] 07-17-2023 15:47-0500 Body weight 100.69 kg TRAVEL PT-C Ilene Anderson TRAVEL PT Work Phone: [facility] 07-17-2023 15:47-0500 Diastolic blood pressure 84 mm[Hg] TRAVEL PT-C Ilene Anderson TRAVEL PT Work Phone: [facility] 07-17-2023 15:47-0500 Heart rate 69 /min TRAVEL PT-C Ilene Anderson TRAVEL PT Work Phone: [facility] 07-17-2023 15:47-0500 Respiratory rate 16 /min TRAVEL PT-C Ilene Anderson TRAVEL PT Work Phone: [facility] 07-17-2023 15:47-0500 Systolic blood pressure 122 mm[Hg] TRAVEL PT-C Ilene Anderson TRAVEL PT Work Phone: [facility] 07-15-2022 10:11-0500 Diastolic Blood Pressure Non-Invasive [address] PATO WEST MD [facility] 07-15-2022 10:11-0500 Heart rate 62 /min DR PATO WEST MD [facility] 07-15-2022 10:11-0500 Respiratory rate 17 /min DR PATO WEST MD [facility] 07-15-2022 10:11-0500 Systolic Blood Pressure Non-Invasive [address] PATO WEST MD [facility] 07-15-2022 09:59-0500 Diastolic Blood Pressure Non-Invasive [address] PATO WEST MD [facility] 07-15-2022 09:59-0500 Heart rate 57 /min DR PATO WEST MD [facility] 07-15-2022 09:59-0500 Respiratory rate 24 /min DR PATO WEST MD [facility] 07-15-2022 09:59-0500 Systolic Blood Pressure Non-Invasive [address] PATO WEST MD [facility] 07-15-2022 09:54-0500 Diastolic Blood Pressure Non-Invasive [address] PATO WEST MD [facility] 07-15-2022 09:54-0500 Heart rate 67 /min DR PATO WEST MD [facility] 07-15-2022 09:54-0500 Respiratory rate 24 /min DR PATO WEST MD [facility] 07-15-2022 09:54-0500 Systolic Blood Pressure Non-Invasive [address] PATO WEST MD [facility] 07-15-2022 09:45-0500 Respiratory Rate - Anes 22 br/min DR PATO WEST MD [facility] 07-15-2022 09:40-0500 Respiratory Rate - Anes 14 br/min DR PATO WEST MD [facility] 07-15-2022 08:34-0500 Body height 180.[address] PATO WEST MD [facility] 07-15-2022 08:34-0500 Body temperature 97.7 [degF] DR PATO WEST MD [facility] 07-15-2022 08:34-0500 Body weight [address] PATO WEST MD [facility] 07-15-2022 08:34-0500 Body weight 24.61 kg/m2 DR PATO WEST MD [facility] 07-15-2022 08:34-0500 Heart rate 61 /min DR PATO WEST MD [facility] Encounters Encounter Date Encounter Type Care Provider Facility Start: 12-22-2024 ambulatory Jovany Chi Gonsalo Facility:[facility] Start: 12-16-2024 End: 12-16-2024 ambulatory Marcos Harper TRAVEL PT-C Work Phone: -[facility] Start: 12-16-2024 End: 12-16-[address] Fco Aguilera MD -[facility] Work Phone: Start: 12-16-2024 End: 12-16-2024 ambulatory Jovany [facility] Facility:[facility] Start: 12-08-2024 End: 12-08-2024 ambulatory Marcos Harper TRAVEL PT-C Work Phone: [facility] Start: 12-08-2024 End: 12-08-[address] Jovany Brush MD [facility] Work Phone: Start: 12-08-2024 End: 12-08-2024 ambulatory Jovany Chi Gonsalo Facility:[facility] Start: 12-03-2024 Non-patient / Non-visit Roma Gonzalez -[facility] Work Phone: Start: 12-03-2024 ambulatory [facility] Start: 12-01-2024 Non-patient / Non-visit [facility] Start: 11-30-2024 Non-patient / Non-visit Dr. Hira downing DO [facility] Work Phone: Start: 11-30-2024 ambulatory Marcos Harper TRAVEL PT -C Work Phone: -[facility] Start: 11-30-2024 Non-patient / Non-visit [facility] Start: 11-29-2024 ambulatory [facility] Start: 11-29-2024 Non-patient / Non-visit [facility] Start: 11-29-2024 Non-patient / Non-visit Dr. Margarita selby MD [facility] Work Phone: Start: 11-29-2024 ambulatory Fco Grantori [facility] Start: 11-29-2024 End: 12-01-2024 Evaluation and management of inpatient Dr. Fco Aguilera MD -Intensive Care Unit Work Phone: Start: 11-29-2024 ambulatory Fco Aguilera [facility] Start: 11-29-2024 Non-patient / Non-visit Dr. Bryan woods MD -[facility] Start: 11-29-2024 Admission to [facility] Dr. Fco Aguilera MD -Intensive Care Unit Work Phone: Start: 11-05-2024 End: 11-05-2024 Patient encounter procedure Maikel WADE -[facility] Work Phone: Start: 11-05-2024 End: 11-05-2024 ambulatory Marcos Baltes TRAVEL PT-C Work Phone: [facility] Work Phone: Start: 09-30-2024 End: 09-30-2024 ambulatory Marcos Baltes TRAVEL PT-C Work Phone: [facility] Work Phone: Start: 09-30-2024 End: 09-30-2024 Patient encounter procedure Maikel WADE -Laboratory Work Phone: Start: 09-30-2024 End: 09-30-2024 ambulatory Jovany Chi Gonsalo Facility:[facility] Start: 09-17-2024 End: 09-17-2024 Patient encounter procedure Maikel WADE -[facility] Work Phone: Start: 09-17-2024 End: 09-17-2024 ambulatory Jovany Chi Gonsalo Facility:[facility] Start: 09-01-2024 End: 09-01-2024 ambulatory Marcos Baltes TRAVEL PT-C Work Phone: [facility] Work Phone: Start: 09-01-2024 End: 09-01-[address] Jovany Brush MD -Laboratory Work Phone: Start: 09-01-2024 End: 09-01-2024 ambulatory Jovany Chi Gonsalo Facility:[facility] Start: 08-30-2024 End: 08-30-2024 ambulatory Marcos Baltes TRAVEL PT-C Work Phone: [facility] Work Phone: Start: 08-30-2024 End: 08-30-2024 Patient encounter procedure Maikel Liang PA -Laboratory Work Phone: Start: 08-30-2024 End: 08-30-2024 ambulatory [facility] Facility:[facility] Start: 08-27-2024 Non-patient / Non-visit [facility] -[facility] Work Phone: Start: 08-27-2024 End: 08-27-2024 ambulatory Marcos Harper TRAVEL PT-C Work Phone: [facility] Work Phone: Start: 08-27-2024 End: 08-27-2024 Patient encounter procedure Maikel WADE -Pulmonary Services/Neurology Work Phone: Start: 08-27-2024 End: 08-27-2024 ambulatory [facility] Facility:[facility] Start: 08-20-2024 End: 08-20-2024 ambulatory Marcos Harper TRAVEL PT-C Work Phone: [facility] Work Phone: Start: 08-20-2024 End: 08-20-2024 Patient encounter procedure Maikel WADE -Radiology, [facility] Work Phone: Start: 08-20-2024 End: 08-20-2024 Patient encounter procedure Maikel Liang PA -[facility] Work Phone: Start: 08-20-2024 End: 08-20-2024 ambulatory Maikel Garth Facility:[facility] Start: 08-20-2024 End: 08-20-2024 ambulatory Maikel Demiter Facility:[facility] Start: 08-14-2024 End: 08-16-2024 Evaluation and management of inpatient JULIET Tristin BEAR DATA SPECIALIST-[employer]SE [employer] Facility:[facility] Start: 07-16-2024 End: 09-10-2024 ambulatory MARCOS HARPER DATA SPECIALIST-[employer] Facility:[facility] Start: 03-10-2024 End: 03-10-2024 ambulatory Marcos Harper TRAVEL PT Facility:[facility] Start: 02-03-2024 End: 02-03-2024 ambulatory SONAM Tang CRISTEL DATA SPECIALIST-AUTOMATIC EDGER Facility:[facility] Start: 02-03-2024 End: 02-03-2024 Patient encounter procedure MARCOS HARPER DATA SPECIALIST-[employer]COSE [employer] CHAR[employer] [facility] Start: 01-31-2024 ambulatory MARCOS HARPER DATA SPECIALIST-[employer]SE [employer] Fa cility:[facility] Start: 01-27-2024 ambulatory MARCOS LEROY DATA SPECIALIST-[employer]COSE [employer] Fa cility:B Start: 01-22-2024 ambulatory MARCOS BALMATTHEW DATA SPECIALIST-[employer]COSE [employer] Fa cility:[facility] Start: 01-20-2024 End: 01-24-2024 ambulatory MARCOS LEROY DATA SPECIALIST-[employer] Facility:[facility] Start: 01-20-2024 End: 01-24-2024 Encounter for other preprocedural examination MARCOS LEROY DATA SPECIALIST-[employer]SE [employer] Facility:[facility] Start: 01-20-2024 End: 01-24-2024 Outreach Lab MARCOS HARPER DATA SPECIALIST-[employer]COSE [employer] [facility] Start: 01-16-2024 ambulatory MARCOS HARPER DATA SPECIALIST-[employer]COSE [employer] Fa cility:[facility] Start: 12-25-2023 End: 12-25-2023 ambulatory JENNIFER CABELLO DO Facility:[facility] Start: 12-25-2023 End: 12-25-2023 Patient encounter procedure JENNIFER CABELLO DO [facility] Start: 10-30-2023 End: 10-30-2023 ambulatory MARCOS HARPER DATA SPECIALIST-[employer]SE [employer] Facility:[facility] Start: 10-30-2023 End: 10-30-2023 Patient encounter procedure MARCOS HARPER DATA SPECIALIST-[employer]SE [employer] [facility] Start: 10-03-2023 End: 10-03-2023 ambulatory MARCOS HARPER DATA SPECIALIST-[employer]COSE [employer] Facility:[facility] Start: 10-03-2023 End: 10-03-2023 Patient encounter procedure MARCOS LEROY DATA SPECIALIST-[employer]COSE [employer] [facility] Start: 09-24-2023 End: 10-29-2023 ambulatory MARCOS HARPER DATA SPECIALIST-[employer]COSE [employer] Facility:[facility] Start: 09-24-2023 End: 10-29-2023 Physical therapy management MARCOS HARPER DATA SPECIALIST-[employer]SE [employer] [facility] Start: 08-22-2023 Non-patient / Non-visit TRAVEL PT-C Sue Anderson TRAVEL PT Work Phone: [facility] Start: 08-22-2023 End: 08-22-2023 ambulatory TRAVEL PT-C Ilene Anderson TRAVEL PT Work Phone: [facility] Work Phone: Start: 08-22-2023 End: 08-22-2023 Patient encounter procedure TRAVEL PT-C Ilene Anderson TRAVEL PT Work Phone: [facility]-Cardiovascul ar Services Work Phone: Start: 07-17-2023 End: 07-17-2023 Patient encounter procedure TRAVEL PT-C Ilene Anderson TRAVEL PT Work Phone: [facility] Work Phone: Start: 02-18-2023 End: 2023 ambulatory MARCOS HARPER DATA SPECIALIST-[employer] Facility:[facility] Start: 08-29-2022 End: 08-29-[address] PATO WEST MD [facility] Start: 08-12-2022 End: 08-12-2022 Preprocedural examination done KAREN STAPLES MD [facility] Start: 08-12-2022 End: 08-12-2022 Patient encounter procedure MARCOS HARPER DATA SPECIALIST-[employer]COSE [employer] [facility] Start: 07-15-2022 End: 07-15-[address] PATO WEST MD [facility] Start: 06-21-2022 End: 06-21-[address] PATO WEST MD [facility] Start: 01-31-2022 End: 01-31-2022 ambulatory [facility] Work Phone: Start: 01-31-2022 End: 01-31-2022 Patient encounter procedure [facility] Start: 08-28-2021 End: 08-28-2021 Patient encounter procedure ILENE ANDERSON DATA SPECIALIST-[employer]COSE [employer] [facility] Start: 07-24-2021 End: 07-24-2021 Patient encounter procedure ILENE ANDERSON DATA SPECIALIST-[employer]COSE [employer] HAND [facility] Start: 04-26-2021 End: 04-26-2021 Patient encounter procedure MICKEY JASSON DATA SPECIALIST-[employer]COSE [employer] CHARGE HAND [facility] Start: 04-12-2021 End: 04-12-2021 Patient encounter procedure MICKEY PAULSONKATHI DATA SPECIALIST-[employer]COSE [employer] [facility] Start: 11-29-2016 End: 11-30-2016 Ambulatory SKYLA PORTILLO Facility:[facility] Procedures Date Procedure Procedure Detail Performing Clinician Start: 12-16-2024 CT of chest without contrast Maikel WADE Work Phone: Start: 12-08-2024 MRI of brain without contrast Marcos Harper TRAVEL PT-C Work Phone: Start: 11-30-2024 Plain X-ray abdomen Rya krystal Harper TRAVEL PT-C Work Phone: Start: 11-30-2024 Estimated creatinine clearance Marcos Harper TRAVEL PT-C Work Phone: Start: 11-30-2024 Serum inorganic phos phate measurement Marcos Harper TRAVEL PT-C Work Phone: Start: 11-29-2024 Plain chest X-ray Marcos Harper TRAVEL PTJaironC Work Phone: Start: 11-29-2024 Coagulation time, activated Marcos Harper TRAVEL PT-C Work Phone: Start: 09-01-2024 Hepatitis C antibody measurement Marcos Harper NP-C Work Phone: Comment on above: Reactive: Presumptiv e evidence of antibodies to HCV. Follow CDC recommendations for supplemental testing.Non-Reactive: Antibodies to HCV were not detected; does not exclude the possibility of exposure to HCVReactive Results are presumptive evidence of antibodies to HCV. Follow CDC recommendations for supplemental testing.Order confirmation testing: HCV Quant by PCR testing - HCVPCR #[id number] Non Reactive: < 0.8 Equivocal: >/= 0.8 to < 1.0 Reactive: >/= 1.0The CDC requires that a reactive/equivocal HCV antibody result be sent out for confirmation. HCV Quant by PCR testing. Start: 09-01-2024 Vitamin D, 25-hydrox y measurement Marcos BYRNESC Work Phone: Comment on above: Vitamin D StatusDefi ciency: <20 ng/mL (50nmol/L)Insufficiency: 20-30 ng/mL (50-75 nmol/L)Sufficiency: 30-100 ng/mL (75-250 nmol/L)Toxicity: >100 ng/mL (>250 nmol/L) Start: 08-20-2024 X-ray of chest, PA a nd lateral views Marcos Harper NP-C Work Phone: Start: 08-20-2024 Evaluation of diagno stic study results Marcos Harper TRAVEL PT-C Work Phone: Start: 08-22-2023 Cardiovascular stres s test using pharmacologic stress agent TRAVEL PT-C Ilene Anderson TRAVEL PT Work Phone: Start: 01-31-2022 CT of chest Start: 02-10-2018 Repair of hip MICKEY YARBROUGH DATA SPECIALIST-[employer]SE [employer] Comment on above: RIGHT ANTERIOR HIP R EPLACEMENT Start: 08-26-2017 Total replacement of left hip joint MICKEY SPAULDING DATA SPECIALIST-VISCOSE [employer]AR CHAR[employer] HAND Cataract (morphologi c abnormality) MICKEY SPAULDING DATA SPECIALIST-[employer]COSE [employer] Comment on above: REBECCA Cholecystectomy MICKEY PAULSONFF ENS DATA SPECIALIST-VISCOSE [employer]LLAR CHAR[employer] HAND Comment on above: 1990S Colonoscopy MICKEY SPAULDING DATA SPECIALIST-VISCOSE [employer]AR [employer] Dilation of urethra MICKEY SPAULDING DATA SPECIALIST-VISCOSE CELLAR CHAR[employer] HAND Tonsillectomy MICKEY Choe DATA SPECIALIST-VISCOSE CELLAR CHAR[employer] HAND Plan of Treatment Date Care Activity Detail Author Start: 12-30-2024 ambulatory Ambulatory Facility:[facility] Start: 12-16-2024 CT Chest WO contrast [facility] Start: 12-16-2024 CT of chest without contrast Chest without Contrast [facility] Start: 12-02-2024 Electrocardiographic procedure [facility] Start: 12-01-2024 Patient discharge [facility] Start: 12-01-2024 Electrocardiographic procedure [facility] Start: 12-01-2024 Referral to occupational therapist [facility] Start: 12-01-2024 End: 12-01-2024 Referral to service [facility] Start: 11-30-2024 Care planning and problem solving actions [facility] Start: 11-30-2024 [facility] Start: 11-30-2024 [facility] Start: 11-30-2024 Inhalation therapy procedure [facility] Start: 11-29-2024 Care regimes management [facility] Start: 11-29-2024 End: 11-29-2024 Notification of physician [facility] Start: 11-29-2024 Assessment of risk of venous thromboembolism [facility] Start: 11-29-2024 Continuous pulse oximetry [facility] Start: 11-29-2024 Insertion of catheter into peripheral vein [facility] Start: 11-29-2024 Measuring intake and output [facility] Start: 11-29-2024 Providing care according to standard [facility] Start: 11-29-2024 Verification routine [facility] Start: 11-29-2024 Vital signs measurements [facility] Start: 11-29-2024 End: 11-29-2024 [facility] Start: 11-29-2024 Consultation [facility] Start: 11-29-2024 Admission procedure [facility] Start: 11-29-2024 Following clinical pathway protocol [facility] Start: 11-29-2024 Cardiac monitoring [facility] Start: 11-29-2024 Cardiac rehabilitation - phase 1 [facility] Start: 11-29-2024 Notification of physician [facility] Start: 11-29-2024 Oxygen therapy [facility] Start: 11-29-2024 Patient discharge [facility] Start: 11-29-2024 Pulse taking [facility] Start: 11-29-2024 End: 11-29-2024 [facility] 24 Hour ECG [facility] Basic metabolic 2008 panel with ionized calcium - Serum or Plasma [facility] CBC W Auto Different ial panel - Blood [facility] Hemoglobin A1c/Hemog lobin.total in Blood [facility] Immunizations Immunization Date Immunization Notes Care Provider Cheryl thorpe 05-09-[address] PATO WEST MD [facility] 03-07-[address] PATO WEST MD [facility] 03-04-2022 influenza, injectabl e, quadrivalent, contains preservative DR PATO WEST MD [facility] 08-20-2021 pneumococcal polysaccharide vaccine, 23 valent; Translations: [Pneumovax 23] ILENE ANDERSON DATA SPECIALIST-VISCOSE CELLAR CHARGE HAND [facility] 04-12-2021 SARS-CoV-2 mRNA (tozinameran) vaccine ILENE ANDERSON DATA SPECIALIST-VISCOSE CELLAR CHARGE HAND [facility] Comment on above: Result Comment: 2021: TPV70 03-26-2021 influenza, high dose seasonal, preservative-free; Translations: [Fluad Quadrivalent PF ] MICKEY SPAULDING DATA SPECIALIST-VISCOSE CELLAR CHARGE HAND [facility] 08-24-2020 SARS-CoV-2 mRNA (tozinameran) vaccine MICKEY SPAULDING DATA SPECIALIST-VISCOSE CELLAR CHARGE HAND [facility] 08-03-2020 SARS-CoV-2 mRNA (tozinameran) vaccine MICKEY SPAULDING DATA SPECIALIST-VISCOSE CELLAR CHARGE HAND [facility] Comment on above: Result Comment: 2020: TPV70 02-11-2017 influenza virus vacc ine, unspecified formulation MICKEY SPAULDING DATA SPECIALIST-VISCOSE CELLAR CHARGE HAND [facility] Payers Date Payer Category Payer Medicare [id number] 2024 Self-pay [id number] 2023 Unknown [id number] 2023 Private Health Insurance [id number] 2016 Private Health Insurance [id number] 1950 Unknown [id number] 2.16.840.1.023062.3.579.2.62 7 1949 Unknown [id number] 2.16.840.1.323621.3.579.2.62 7 1949 Unknown [id number] 2.16.840.1.988199.3.579.2.62 7 1949 Unknown [id number] 2.16.840.1.426152.3.579.2.62 7 1949 Unknown [id number] 2.16.840.1.558982.3.579.2.62 7 1949 Unknown [id number] 2.16.840.1.015812.3.579.2.62 7 1949 Unknown [id number] 2.16.840.1.007632.3.579.2.62 7 1949 Unknown [id number] 2.16.840.1.199336.3.579.2.62 7 1949 Unknown [id number] 2.16.840.1.448062.3.579.2.62 7 1949 Unknown [id number] 2.16.840.1.624510.3.579.2.62 7 1949 Unknown [id number] 2.16.840.1.205825.3.579.2.62 7 1949 Unknown [id number] 2.16.840.1.567922.3.579.2.62 7 1949 Unknown [id number] 2.16.840.1.676396.3.579.2.62 7 1949 Unknown [id number] 2.16.840.1.642572.3.579.2.62 7 Private Health Insurance [facility] [id number] Unknown [id number] 2.16.840.1.584339.3.579.2.46 2 Unknown [id number] 2.16.840.1.831670.3.579.2.46 2 Unknown [id number] 2.16.840.1.814699.3.579.2.46 2 Unknown [id number] 2.16.840.1.713864.3.579.2.46 2 Unknown [id number] 2.16.840.1.575588.3.579.2.46 2 Unknown [id number] 2.16.840.1.962802.3.579.2.46 2 Unknown [id number] 2.16.840.1.905896.3.579.2.46 2 Unknown [id number] 2.16.840.1.315542.3.579.2.46 2 Unknown [id number] 2.16.840.1.239771.3.579.2.46 2 Unknown [id number] 2.16.840.1.617731.3.579.2.46 2 Unknown [id number] 2.16.840.1.165363.3.579.2.46 2 Unknown [id number] 2.16.840.1.344996.3.579.2.46 2 Unknown [id number] 2.16.840.1.191198.3.579.2.46 2 Unknown [id number] 2.16.840.1.137450.3.579.2.46 2 Unknown [id number] 2.16.840.1.471063.3.579.2.46 2 Unknown [id number] 2.16.840.1.250118.3.579.2.46 2 Unknown [id number] 2.16.840.1.735137.3.579.2.46 2 Unknown [id number] 2.16.840.1.598246.3.579.2.46 2 Unknown [id number] 2.16.840.1.631099.3.579.2.46 2 Unknown [id number] 2.16.840.1.748480.3.579.2.46 2 Unknown [id number] 2.16.840.1.706856.3.579.2.46 2 Unknown [id number] 2.16.840.1.198512.3.579.2.46 2 Unknown [id number] 2.16.840.1.274531.3.579.2.46 2 Unknown [id number] 2.16.840.1.408629.3.579.2.46 2 Social History Date Type Detail Facility Start: 12-24-2018 Light tobacco smoker (finding) [facility] Start: 1950 Sex Assigned At Male A [facility] Start: 07-24-2021 End: 08-20-2024 Smokes tobacco daily (finding) [facility] Start: 09-06-2021 End: 07-17-2023 Tobacco smoking status UTIS Unknown if ever smoked [facility] Start: 03-29-2020 None [facility] Start: 08-10-2020 Pipe [facility] Start: 01-20-2024 Tobacco smoking status Occasional tobacco smoker (finding) [facility] Start: 08-24-2024 End: 09-06-2024 Sex Male (finding) [facility] Start: 11-29-2024 Tobacco smoking status NHIS Ex-smoker (finding) [facility] Medical Equipment Procedure Code Equipment [...] Start: 02-10-2018 MONTEZ COTO FDA Start: 03-29-2020 [place] COTOCANDE BERGKATIA FDA Start: 03-29-2020 Unknown Unknown 9/18/18 Unknown [...] FDA Start: 02-10-2018 FDA Start: 02-10-2018 CHICAVIRGINIACANDE WOODWARD FDA Start: 03-29-2020 CHICAVIRGINIACANDE BERGKATIA FDA Start: 03-29-2020 Unknown Unknown 9/18/18 Unknown [...] Start: 03-29-2020 MONTEZ COTO FDA Start: 03-29-2020 Drug-eluting coronary artery stent, pvk-uazajyuulxcfd-jx lymer-coated [id number] FDA Start: 11-29-2024 MONTEZ COTO FDA Start: 03-29-2020 MONTEZ COTO FDA Start: 03-29-2020 MONTEZ COTO FDA Start: 03-29-2020 MONTEZ COTO FDA Start: 03-29-2020 MONTEZ COTO FDA Start: 03-29-2020 MONTEZ COTO FDA Start: 03-29-2020 MONTEZ COTO FDA Start: 03-29-2020 MONTEZ COTO FDA Start: 03-29-2020 Goals Date Patient Goal Desired Activity /State Functional Status Date Assessment Result Facility 12-01-2024 Functional status Chair [facility] Work Phone: 11-30-2024 Functional [address]side [facility] Work Phone: 07-15-2022 Functional Status Activity Statu s ADL Up to bathroom [facility] 07-15-2022 Functional Status Maintained, More than 8 hours [facility] Mental Status Date Assessment Result Facility 12-01-2024 Cognitive function Awake;Alert;A ppropriate;Foll ows Commands [facility] Work Phone: 12-01-2024 Cognitive function Voice/Name [facility] Work Phone: 11-30-2024 Cognitive function Voice/Name [facility] Work Phone: 11-29-2024 Cognitive function Intact [facility] Work Phone: 07-15-2022 Mental Status Orientation Oriented x 4 [facility] 07-15-2022 [facility] Clinical Notes 06-21-2022 to 12-21-2024 Note Date & Type Note Facility 12-21-2024 Radiology Diagnostic study note [facility] Imaging Services [address] [place], [place] [address] Chest without Contrast MR#: [id number] Acct: [id number] Name: ANGI JACKSON Rep #: [id number] : 1950 M 74 From: Smith Austin MD PCP: Dr. Jovany Brush MD Status: REG C ÁNGELA Study:Chest without Contrast Date of Exam: 12/16/24 Exam# [id number] Ordering Dr: Breanne Mejia MD PROCEDURE: CHEST WITHOUT CONTRAST 12/16/2024 REASON FOR EXAM: COPD Former smoker. Patient has smoked half a pack per day for 50+ years. TECHNIQUE: Chest CT without contrast. Coronal and Sagittal reconstruction series were provided. One or more dose reduction techniques were used (e.g., Automated exposure control, adjustment of the mA and/or kV according to patient size, use of iterative reconstruction technique RADIATION DOSE SUMMARY: CTDlvol: 17.92 mGy DLP: 725.3 mGycm COMPARISON: Prior study dated March 10, 2024. FINDINGS: Hardware: None Lymph nodes: Small benign-appearing mediastinal lymph nodes. These are unchanged. Heart and Vasculature: The heart is nonenlarged. Coronary Artery Calcifications: Present Lungs and Airways: Stable mild increased markings at the lung bases suggestive of scarring. Stable mild increased markings in the right temporal lobe suggestive of linear scarring. Pleura: No pleural effusion. Upper Abdomen: Status post cholecystectomy. Bones: Degenerative changes of the thoracic spine. CT/Chest without Contrast IMPRESSION: Coronary artery calcification (CAC) is is present Stable examination. No suspicious pulmonary nodule seen. Reading Location: [facility] CC: Dr. Breanne Mejia MD; Dr. Jovany Brush MD ~ Inspector Brake Lining: Signed [facility] 12-01-2024 Discharge summary Note Date/Time December 01, 2024 10:03am [facility] Medical Records Department [address] [place] [address] Discharge Summary 12/01/24 0955 MR#: [id number] Acct: [id number] Name: ANGI JACKSON Rep #:[id number] : 1950 74 From: Hira Mathias DO PCP: Dr. Jovany Brush MD Status:ADM I N Location: ICU ICU- Providers Date of Admission: 11/29/24 Primary Care Physician: Dr. Jovany Brush MD Consultations 11/29/24 15:06 Consult: Hospitalist Routine Consulting Provider: Margarita Levy Reason for Consult: medical management and admission EMERGENT Consult: No MD Notified: Yes Date Notified: 11/29/24 Time Notified: 15:07 Method of Notification: Text Reason For Visit: 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 Diagnosis Discharge Diagnosis (1) Stented [...] is seen in the colon. Reading Location: [place] [address] D/C Instructions Discharge Diet: Low fat / [...] mg PO BID Qty: 60 0RF Continued kgkfyvdoamt-jtccloagf-bnwrtwiy 100-62.5-25 mcg blister with device 1 inh [...] Qty: 30 11RF Referrals / Follow Up: [facility] [Provider Group] - 12/16/24 2:30 pm Jovany Brush Chi, MD [Primary Care Provider] - Within 2 Weeks Disposition Disposition (needs filled in before D/C Order can be placed): Home, Self Care Charges/Coding Visit Charges Inpatient E&M: 84663 Disch Hosp >30min 12/01/24 1003 <Electronically signed by Hira Mathias DO> Cosigner Signature (if applicable): CC: Dr. Hira Mathias DO; Dr. Jovany Brush MD~ Signed [facility] Work Phone: 1(388) 735-257707-09-2025 Progress note Author Hira Mathias [facility] Note Date/Time December 01, 2024 9:55a m [facility] Medical Records Department [address] [place] [address] Progress Note - Hospitalist 12/01/24708 MR#: [id number] Acct: [id number] Name: ANGI JACKSON Rep #:[id number] : 1950 74 From: Hira Mathias DO PCP: Dr. Jovany Brush MD Status:ADM I N Location: ICU ICU05- Reason for Visit Reason for Visit: Diagnoses Mixed hyperlipidemia (11/29/24) Essential (primary) hypertension (11/29/24) 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rtery without angina pectoris (11/29/24) Longstanding persistent atrial fibrillation (11/29/24) Acute diastolic (congestive) heart failure (11/29/24) Other forms of dyspnea (11/29/24) Unspecified abdominal pain (11/29/24) Encounter for therapeutic drug level monitoring (11/29/24) alf (current) use of anticoagulants (11/29/24) Presence of [...] is seen in the colon. Reading Location: [place] [address] Physical Exam Const alert and no apparent [...] indicated patient is already apixaban Discharge home. 12/01/24 0915 <Electronically signed by Hira Mathias DO> Cosigner Signature (if applicable): CC: ~ Signed [facility] Work Phone: 1(543) 107-497107-09-2025 Discharge summary [facility] Medical Records Department [address] [place] [address] Discharge Summary 12/01/2455 MR#: [id number] Acct: [id number] Name: ANGI JACKSON Rep #:[id number] : 1950 74 From: Hira Mathias DO PCP: Dr. Jovany Brush MD Status:ADM I N Location: ICU ICU05-1 Providers Date of Admission: 11/29/24 Primary Care Physician: Dr. Jovany Brush MD Consultations 11/29/24 15:06 Consult: Hospitalist Routine Consulting Provider: Margarita Levy Reason for Consult: medical management and admission EMERGENT Consult: No MD Notified: Yes Date Notified: 11/29/24 Time Notified: 15:07 Method of Notification: Text Reason For Visit: 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 Diagnosis Discharge Diagnosis (1) Stented [...] is seen in the colon. Reading Location: [facility] D/C Instructions Discharge Diet: Low fat / [...] mg PO BID Qty: 60 0RF Continued cpxkqysgths-adjyqdhmt-zfypnzuk 100-62.5-25 mcg blister with device 1 inh [...] Qty: 30 11RF Referrals / Follow Up: [facility] [Provider Group] - 12/16/24 2:30 pm Jovany Brush Chi, MD [Primary Care Provider] - Within 2 Weeks Disposition Disposition (needs filled in before D/C Order can be placed): Home, Self Care Charges/Coding Visit Charges Inpatient E&M: 77355 Disch Hosp >30min 12/01/24 1003 Cosigner Signature (if applicable): CC: Dr. Hira Mathias DO; Dr. oJvany Brush MD~ Signed [facility]07-09-2025 [facility] Medical Records Department [address] [place] [address] Discharge Summary 12/01/24954 MR#: [id number] Acct: [id number] Name: ANGI JACKSON Rep #: [id number] : 1950 74 From: Hira Mathias DO PCP: Dr. Jovany Brush MD Status:ADM IN [facility] Date of Admission: 11/29/24 Primary Care Physician: Dr. Jovany Brush MD Consultations 11/29/24 15:06 Consult: Hospitalist Routine Consulting Provider: Margarita Levy Reason for Consult: medical management and admission EMERGENT Consult: No MD Notified: Yes Date Notified: 11/29/24 Time Notified: 15:07 Method of Notification: Text Reason For Visit: 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 Diagnosis Discharge Diagnosis (1) Stented [...] ventricular hypertrophy. The left (more content not included)...[facility]07-09-2025 Progress note [facility] Medical Records Department [address] [place] [address] Progress Note - Hospitalist 12/01/24708 MR#: [id number] Acct: [id number] Name: ANGI JACKSON Rep #:[id number] : 1950 74 From: Hira Mathias DO PCP: Dr. 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 Reading Location: [place] [address] Physical Exam Const alert and no apparent [...] patient is already apixaban Discharge home. 12/01/24954 Cosigner Signature (if applicable): CC: ~ Signed [facility]07-09-2025 Progress note Author Fco Aguilera [facility] Note Date/Time December 01, 2024 7:27a m [facility] Medical Records Department [address] [facility] [place] [address] Progress Note - Cardiology 12/01/24724 MR#: [id number] Acct: [id number] Name: ANGI JACKSON Rep #:[id number] : 1950 74 From: Fco Aguilera MD [...] is seen in the colon. Reading Location: [place] [address] Physical Exam Const alert Constitutional Narrative: dysarthria. [...] Cosigner Signature (if applicable): CC: ~ Signed [facility] Work Phone: 1(387) 647-529007-09-2025 Progress note [facility] Medical Records Department [address] [place] [address] Progress Note - Cardiology 12/01/24724 MR#: [id number] Acct: [id number] Name: ANGI JACKSON Rep #:[id number] : 1950 74 From: Fco Aguilera MD [...] is seen in the colon. Reading Location: [place] [address] Physical Exam Const alert Constitutional Narrative: dysarthria. [...] Cosigner Signature (if applicable): CC: ~ Signed [facility]07-08-2025 Progress note Author Hira Mathias [facility] Note Date/Time November 30, 2024 2:13p m [facility] Medical Records Department [address] [place] [address] Progress Note - Hospitalist 11/30/24 1408 MR#: [id number] Acct: [id number] Name: ANGI JACKSON Rep #:[id number] : 1950 74 From: Hira Mathias DO PCP: Dr. 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 Reading Location: [address] Abdomen X-Ray 11/30/24 12:56 IMPRESSION: Moderate amount of fecal material is seen in the colon. Reading Location: [facility] Physical Exam Const alert Constitutional Narrative: dysarthria. [...] already apixaban Charges/Coding Visit Charges Inpatient E&M: 12593 Subs Hosp L2 11/30/24 1413 <Electronically signed by Hira Mathias DO> Cosigner Signature (if applicable): CC: ~ Signed [facility] Work Phone: 1(113) 358-878707-08-2025 Progress note [facility] Medical Records Department [address] [place] [address] Progress Note - Hospitalist 11/30/24 1408 MR#: [id number] Acct: [id number] Name: ANGI JACKSON Rep #:[id number] : 1950 74 From: Hira Mathias DO PCP: Dr. 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 Lungs appear clear of acute disease. No pleural effusion or pneumothorax is noted. The cardiomediastinal silhouette is stable, without evident of cardiomegaly. No evidence of acute cardiopulmonary disease. Reading Location: [address] Abdomen X-Ray 11/30/24 12:56 IMPRESSION: Moderate amount of fecal material is seen in the colon. Reading Location: [facility] Physical Exam Const alert Constitutional Narrative: dysarthria. [...] already apixaban Charges/Coding Visit Charges Inpatient E&M: 77046 Subs Hosp L2 11/30/24 1413 Cosigner Signature (if applicable): CC: ~ Signed [facility]07-08-2025 Radiology Diagnostic study note [facility] Imaging Services [address] [place] [address] Abd Decub and/or Erect(Portabl MR#: [id number] Acct: [id number] Name: ANGI JACKSON Rep #: [id number] : 1950 M 74 From: Smith Austin MD PCP: Dr. Jovany Brush MD Status: ADM I N Study:Abd Decub and/or Erect(Portabl Date of Exam: 11/30/24 Exam# [id number] Ordering Dr: Hira Mathias DO PROCEDURE: ABD [...] is seen in the colon. Reading Location: [facility] CC: Dr. Hira Mathias DO; Dr. Jovany Brush MD ~ Inspector Brake Lining: Signed [facility]07-08-2025 Progress note Author Fco Aguilera [facility] Note Date/Time November 30, 2024 7:07a m [facility] Medical Records Department [address] [place] [address] Progress Note - Cardiology 11/30/24 0701 MR#: [id number] Acct: [id number] Name: ANGI JACKSON Rep #:[id number] : 1950 74 From: Fco Aguilera MD [...] 82.9 H, Lymph % (Auto) 8.7 L, [place] % (Auto) 7.2, Eos % (Auto) 0.4, [...] 82.9 H, Lymph % (Auto) 8.7 L, [place] % (Auto) 7.2, Eos % (Auto) 0.4, [...] evidence of acute cardiopulmonary disease. Reading Location: [address] Physical Exam Const alert, oriented x3 [...] and will remain on high intensitystatin. 11/30/24 07 <Electronically signed by Fco Aguilera MD> Cosigner Signature (if applicable): CC: ~ Signed [facility] Work Phone: 1(203) 663-246007-08-2025 Progress note [facility] Medical Records Department [facility] [place] [address] [address] Progress Note - Cardiology 11/30/24700 MR#: [id number] Acct: [id number] Name: ANGI JACKSON Rep #:[id number] : 1950 74 From: Fco Aguilera MD [...] 82.9 H, Lymph % (Auto) 8.7 L, [place] % (Auto) 7.2, Eos % (Auto) 0.4, [...] 82.9 H, Lymph % (Auto) 8.7 L, [place] % (Auto) 7.2, Eos % (Auto) 0.4, [...] evidence of acute cardiopulmonary disease. Reading Location: [address] Physical Exam Const alert, oriented x3 [...] hyperlipidemia and will remain on high intensitystatin. 11/30/24706 Cosigner Signature (if applicable): CC: ~ Signed [facility]07-07-2025 History and physical note Author Margarita Levy [facility] Note Date/Time November 29, 2024 4:19p m [facility] Medical Records Department [address] [place] [address] H&P Exam - Hospitalist 11/29/24 1523 MR#: [id number] Acct: [id number] Name: ANGI JACKSON Rep #:[id number] : 1950 74 From: Margarita Levy MD PCP: Dr. Jovany Brush MD Status:REG S DC Location: ICU ICU-1 HPI - General General Date of Admission: 11/29/24 Date of Service: 11/29/24 Chief Complaint: Elective heart cath status post stenting HPI Narrative ANGI JACKSON, is a 74 y/o M with a history of CVA, A-fib on Eliquis, hypertension, COPD, GERD, depression, chronic pain presented to [facility] 11/29/2024 for elective cath. He [...] noted and he reports that at baseline [facility] Medical History Gastroparesis 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rtery without angina pectoris Dyspnea on [...] Levy MD Charges/Coding Visit Charges Inpatient E&M: 21480 Init Hosp L2 11/29/24 1618 <Electronically signed by Margarita Levy MD> Cosigner Signature (if applicable): CC: Dr. Margarita Levy MD; Dr. Jovany Brush MD~ Signed ADDENDUM by Dr. Margarita Levy MD on 11/29/24 at 1619 Addendum Also ordered echocardiogram 11/29/24 1619<Electronically signed by Margarita Levy MD> Cosigner Signature (if applicable): cc: Dr. Margarita Levy MD; Dr. Jovany Brush MD ~* Signed [facility] Work Phone: 1(552) 959-219907-07-2025 Radiology Diagnostic study note [facility] Imaging Services [address] [place], [place] [address] Chest 1 View (Portable) MR#: [id number] Acct: [id number] Name: ANGI JACKSON Rep #: [id number] : 1950 M 74 From: Jaxon Tobias MD PCP: Dr. Jovany Brush MD Status: REG S DC Study:Chest 1 View (Portable) Date of Exam: 11/29/24 Exam# [id number] Ordering Dr: Sue Levy MD PROCEDURE: CHEST [...] evidence of acute cardiopulmonary disease. Reading Location: [address] CC: Dr. Margarita Levy MD; Dr. Jovany Brush MD ~ Inspector Brake Lining: Signed [facility]07-07-2025 History and physical note [facility] Medical Records Department [address] [place] [address] H&P Exam - Hospitalist 11/29/24 1523 MR#: [id number] Acct: [id number] Name: ANGI JACKSON Rep #:[id number] : 1950 74 From: Margarita Levy MD PCP: Dr. Jovany Brush MD Status:REG S DC Location: ICU ICU05-1 HPI - General General Date of Admission: 11/29/24 Date of Service: 11/29/24 Chief Complaint: Elective heart cath status post stenting HPI Narrative ANGI JACKSON, is a 74 y/o M with a history of CVA, A-fib on Eliquis, hypertension, COPD, GERD, depression, chronic pain presented to [facility] 11/29/2024 for elective cath. He [...] noted and he reports that at baseline [facility] Medical History Gastroparesis 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rtery without angina pectoris Dyspnea on exertion Near syncope Positional lightheadedness Syncope History of CVA (cerebrovascular accident) TIA (transient ischemic attack) Longstanding persistent atrial fibrillation Nicotine dependence Hyperlipidemia Essential (primary) hypertension Obstructive sleep apnea Bladder diverticulum Squamous cell skin cancer Squamous cell cancer of skin of [facility] Anxiety and depression GERD (gastroesophageal reflux disease) [...] Levy MD Charges/Coding Visit Charges Inpatient E&M: 81019 Init Hosp L2 11/29/24 1618 Cosigner Signature (if applicable): CC: Dr. Margarita Levy MD; Dr. Jovany Brush MD~ Signed ADDENDUM by Dr. Margarita Levy MD on 11/29/24 at 1619 Addendum Also ordered echocardiogram 11/29/24 1619 Cosigner Signature (if applicable): cc: Dr. Margarita Levy MD; Dr. Jovany Brush MD ~* Signed [facility]07-07-2025 Study report [facility] Cardiac Rehab [address] [place] [address] CR: Phase I Education Summary MR#: [id number] Acct: [id number] Name: ANGI JACKSON Rep #:[id number] : 1950 74 From: Barry Hughes PCP: Dr. Jovany Brush MD DOS: General Education Discussed with Patient CAD and cardiac anatomy and function:: Patient communicates acknowledgment and Family communicates acknowledgment Explanation of diagnoses and procedures:: Patient communicates acknowledgment and Family communicates acknowledgment Sign/Symptoms of [place]:: Patient communicates acknowledgment and Family communicates acknowledgment [...] protocol. Cosigner Signature: Date CC: ~ Signed [facility]04-25-2025 Evaluation note* Diagnosis Onset Date Resolution Status Admit Date Chest pain acute September 17 11:05am CHF (congestive heart failure) acute September 17, 2024 11:05am Dyspnea acute September 17 11:05am PVCs (premature ventricular contractions) acute September 17, 2024 11:05am Atherosclerotic heart diseas e of [place] coronary artery without angina pectoris chronic September 172024 11:05am Hypokalemia resolved September 17, 2 025 11:05am Essential (primary) hypertension inactive September 17, 2024 11:05am Hyperlipidemia inactive August 11:05am Longstanding persistent atri al fibrillation inactive September 17, 2024 11:05am Chest pain acute November 05 11:09am CHF (congestive heart failure) acute November 05, 2024 11:09am Dyspnea acute November 05 11:09am PVCs (premature ventricular contractions) acute November 05, 2024 11:09am Atherosclerotic heart diseas e of [place] coronary artery without angina pectoris chronic October [...] 29, 2024 inactive November 29, 2024 2:58pm PVCs (premature ventricular contractions) acute December 16, 2024 1:34pm Atherosclerotic heart diseas e of [place] coronary artery without angina pectoris chronic November 1:34pm History of CVA (cerebrovascular accident) chronic December 16, 2024 1:34pm Essential (primary) hypertension inactive December 16, 2024 1:34pm Hyperlipidemia inactive December 16, 2024 1:34pm Longstanding persistent atri al fibrillation inactive December 16, 2024 1:34pm [facility] Work Phone: 1(758) 429-106204-01-2025 Radiology Diagnostic study note [facility] Imaging Services [address] [place] [address] Chest PA and Lateral MR#: [id number] Acct: [id number] Name: ANGI JACKSON Rep #: [id number] : 1950 M 74 From: Angelique Saba MD PCP: PRAKASH Lanier Status: REG CLI Study:Chest PA and Lateral Date of Exam: 08/20/24 Exam# [id number] Ordering Dr: Maikel Liang EXAM: XR Chest, 2 Views CLINICAL INDICATION: SHORTNESS OF BREATH TECHNIQUE: Frontal and lateral views of the chest. COMPARISON: No relevant prior studies available. FINDINGS: LUNGS AND PLEURAL SPACES: See below. HEART: Cardiomegaly with mild congestion. MEDIASTINUM: Unremarkable. Normal mediastinal contour. BONES/JOINTS: Unremarkable. No acute fracture. RAD/Chest PA and Lateral IMPRESSION: Cardiomegaly with mild congestion. Reading Location: [facility]- CC: TRAVEL PTFabiano Harper; MAURO Ramos ~ Inspector Brake Lining: Signed [facility]03-28-2025 Evaluation note* Diagnosis Onset Date Resolution Status Admit Date Chest pain acute August 20 10:02am CHF (congestive heart failure) acute August 20, 2024 10:02am Dyspnea acute August 20 10:02am Hypokalemia acute August 20, 2 025 10:02am PVCs (premature ventricular contractions) acute August 20, 2024 10:02am Atherosclerotic heart diseas e of [place] coronary artery without angina pectoris chronic August 20, 2024 10:02am Essential (primary) hypertension chr onic August 20, 2024 10:02am Hyperlipidemia chronic July 10:02am Longstanding persistent atri al fibrillation chronic August 20, 2024 10:02am [facility] Work Phone: 1(262) 974-551903-28-2025 Evaluation note* Diagnosis Onset Date Resolution Status Admit Date Chest pain acute August 20 10:02am CHF (congestive heart failure) acute August 20, 2024 10:02am Dyspnea acute August 20 10:02am PVCs (premature ventricular contractions) acute August 20, 2024 10:02am Atherosclerotic heart diseas e of [place] coronary artery without angina pectoris chronic August [...] 2024 11:05am Atherosclerotic heart diseas e of [place] coronary artery without angina pectoris chronic September 17, 2024 11:05am Essential (primary) hypertension chr onic September 17, 2024 11:05am Hyperlipidemia chronic August 11:05am Longstanding persistent atri al fibrillation chronic September 17, 2024 11:05am Hypokalemia resolved September 17, 025 11:05am [facility] Work Phone: 1(156) 934-889103-28-2025 Evaluation note* Diagnosis Onset Date Resolution Status Admit Date Chest pain acute August 20 10:02am CHF (congestive heart failure) acute August 20, 2024 10:02am Dyspnea acute August 20 10:02am PVCs (premature ventricular contractions) acute August 20, 2024 10:02am Atherosclerotic heart diseas e of [place] coronary artery without angina pectoris chronic August [...] 2024 11:05am Atherosclerotic heart diseas e of [place] coronary artery without angina pectoris chronic September [...] 2024 11:09am Atherosclerotic heart diseas e of [place] coronary artery without angina pectoris chronic November 05, 2024 11:09am Essential (primary) hypertension chr onic November 05, 2024 11:09am Hyperlipidemia chronic November 05, 2024 11:09am Longstanding persistent atri al fibrillation chronic November 05, 2024 11:09am Hypokalemia resolved November 05 11:09am [facility] Work Phone: 1(801) 810-206103-28-2025 Evaluation note* Diagnosis Onset Date Resolution Status Admit Date Chest pain acute August 20 10:02am CHF (congestive heart failure) acute August 20, 2024 10:02am Dyspnea acute August 20 10:02am PVCs (premature ventricular contractions) acute August 20, 2024 10:02am Atherosclerotic heart diseas e of [place] coronary artery without angina pectoris chronic August [...] 2024 11:05am Atherosclerotic heart diseas e of [place] coronary artery without angina pectoris chronic September [...] 2024 11:09am Atherosclerotic heart diseas e of [place] coronary artery without angina pectoris chronic November [...] fibrillation chronic November 29, 2024 9 :18am [facility] Work Phone: 1(685) 862-253303-28-2025 Evaluation note* Diagnosis Onset Date Resolution Status Admit Date Chest pain acute August 20 10:02am CHF (congestive heart failure) acute August 20, 2024 10:02am Dyspnea acute August 20 10:02am PVCs (premature ventricular contractions) acute August 20, 2024 10:02am Atherosclerotic heart diseas e of [place] coronary artery without angina pectoris chronic August [...] 2024 11:05am Atherosclerotic heart diseas e of [place] coronary artery without angina pectoris chronic September [...] 2024 11:09am Atherosclerotic heart diseas e of [place] coronary artery without angina pectoris chronic October [...] 29, 2024 chronic November 29, 2024 2:58pm [facility] Work Phone: 1(826) 804-656403-28-2025 Evaluation note* Diagnosis Onset Date Resolution Status Admit Date Chest pain acute August 20 10:02am CHF (congestive heart failure) acute August 20, 2024 10:02am Dyspnea acute August 20 10:02am PVCs (premature ventricular contractions) acute August 20, 2024 10:02am Atherosclerotic heart diseas e of [place] coronary artery without angina pectoris chronic August [...] 2024 11:05am Atherosclerotic heart diseas e of [place] coronary artery without angina pectoris chronic September 172024 11:05am Hypokalemia resolved September 17 11:05am Essential (primary) hypertension inactive September 17, 2024 11:05am Hyperlipidemia inactive August 11:05am Longstanding persistent atri al fibrillation inactive September 17, 2024 11:05am Chest pain acute November 05 11:09am CHF (congestive heart failure) acute November 05, 2024 11:09am Dyspnea acute November 05 11:09am PVCs (premature ventricular contractions) acute November 05, 2024 11:09am Atherosclerotic heart diseas e of [place] coronary artery without angina pectoris chronic October [...] 29, 2024 inactive November 29, 2024 2:58pm [facility] Work Phone: 1(921) 930-698504-06-2023 Note ORIGINAL EXAMINATION: GASTRIC EMPTYING STUDY08/29/2022 3:10 [...] 08/29/2022 3:17:37 PM Ordering Provider: PATO WEST [place] [address]-06-2023 Note ORIGINAL EXAMINATION: GASTRIC EMPTYING STUDY08/29/2022 3:10 [...] Date: 08/29/2022 3:17:37 PM Ordering Provider[facility] Evaluation + Plan noteExtracted from: Title:Clinical Document Author:PATO WEST Date:07/15/22 BRUSH ADMISSION HISTORY AN D PHYSICIAL CHIEF COMPLAINT: HISTORY OF PRESENT ILLNESS: REVIEW OF SYSTEMS: ACTIVE PROBLEMS: (23) Alcoholism (68524312) Anxiety depression (998826143) Atrial fibrillation (62629797) Back pain (860096481) BPH - benign prostatic hyperplasia (8780574836) Catheter, device, per self; per urologist (2499825752) 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) Elevated liver enzymes (2435869319) Enlarged prostate (394224732) Erectile dysfunction (3483267675) GERD (gastroesophageal reflux disease) (316343851) Hepatitis (529171430) Hiatal hernia (419742716) Hyperlipidemia (44254065) Hypertension (17742751) Kidney stone (384591820) Lightheadedness (4921173244) Osteoarthritis (0297663081) Palpitations (875771925) 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 (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) Sleep apnea (695699764) Squamous cell carcinoma (79459330) Tobacco use (4230694528) MEDICATIONS: Active Inpt Meds: celecoxib (CeleBREX) Start: [...] FAMILY HISTORY: SOCIAL HISTORY: PHYSICAL EXAM: VITALS: JinwnzAxckIAEionmADQeL5BLH4UcfyYq(kg) 07/15 09:45----66--78.8--07/15 80.0 07/15 09:40----55------ 07/15 08:3436.5--5871027KW 24 Hr Tmax: 36.5 at 07/15 08:34 [...] Extracted from: Title:Clinical Document Author:PATO WEST Date:07/15/22 BRUSH ADMISSION HISTORY AN D PHYSICIAL CHIEF COMPLAINT: HISTORY OF PRESENT ILLNESS: REVIEW OF SYSTEMS: ACTIVE PROBLEMS: (23) Alcoholism (66290233) Anxiety depression (835814116) Atrial fibrillation (54738768) Back pain (792711238) BPH - benign prostatic hyperplasia (1485217877) Catheter, device, per self; per urologist (7911769796) COPD with chronic bronchitis (467930706) Elevated liver enzymes (7563594770) Enlarged prostate (140358926) Erectile dysfunction (8829907716) GERD (gastroesophageal reflux disease) (301366401) Hepatitis (607063185) Hiatal hernia (112729698) Hyperlipidemia (65128573) Hypertension (65538464) Kidney stone (302079835) Lightheadedness (0140246836) Osteoarthritis (7176889100) Palpitations (761754720) 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 (5152325498) Sleep apnea (132415027) Squamous cell carcinoma (59599482) Tobacco use (9753219981) MEDICATIONS: Active Inpt Meds: celecoxib (CeleBREX) Start: [...] FAMILY HISTORY: SOCIAL HISTORY: PHYSICAL EXAM: VITALS: EjavhgRtkpNUJyqaiTKWgE8XMR5WyfiIo(kg) 07/15 08:3436.5--5195820CR92/20 79.0 24 Hr Tmax: 36.5 at 07/15 [...] Appointment Date:07/16/2022 10:00:00 AM Scheduled Provider:MARCOS HARPER Location:[facility] Appointment Type:PC Acute Appointment Date:07/17/2022 08:45:00 AM Scheduled Provider: Location:[facility] Appointment Type:ACC POC Established Patient Appointment Date:09/18/2022 11:30:00 AM Scheduled Provider:MARCOS HARPER Location:[facility] Appointment Type:PC OV Future Scheduled Tests Laboratory* Complete Blood Count 03/04/22 * Lipid Profile 03/04/22 * Complete Metabolic Panel 03/04/22 Radiology* XR Chest 2 Views (PA & Lateral) 07/24/21 [facility] 02-20-2023 Hospital Discharge instructions Patient Education 07/15/2022 [...] until you are awake and alert. Take ptjx-fch-nvjmots and prescription medicines only as told by [...] 03/02/2014 Document Revised: 04/24/2018 Document Reviewed: 08/31/2016 Spinal Modulation Patient Education 2020 [employer] 07/15/2022 10:00:44 Esophagogastroduodenoscopy, Care After (66007) Esophagogastroduodenoscopy, Care After Refer to this sheet [...] 04/28/2013 Document Revised: 10/17/2016 Document Reviewed: 04/04/2016 Spinal Modulation Interactive Patient Education 2019 [employer]. Follow Up Care 06/25/2022 13:39:48 With:PATO WEST MD Address: [address] [address]- [phone] When: Unknown Comments:Follow up as direct [facility] 02-20-2023 Summary of episode note Discharge Instructions Thank you for allowing [facility] to assist you with your healthcare needs. The following is importantdischarge information regarding your hospital visit. Your Care Team MARCOS HARPER What to do next Scheduled Follow-Up Appointments Appointment Type When With Where Contact InformationACC POC Established Patient 07/17/2022 08:45 AMEST [facility] OV 09/18/2022 11:30 AM EDT MARCOS HARPER [facility] [place] [address] [place] [address] Follow Up Appointments Follow Up with PATO WEST MD When Why: Follow up as direct Where: [address] [place] [address] [phone] The Following Activity and Diet Have Been [...] until you are awake and alert. Take bary-xac-ayjiffg and prescription medicines only as told by [...] 03/02/2014 Document Revised: 04/24/2018 Document Reviewed: 08/31/2016 Spinal Modulation Patient Education 2020 [employer] Esophagogastroduodenoscopy, Care After Refer to this [...] 04/28/2013 Document Revised: 10/17/2016 Document Reviewed: 04/04/2016 Spinal Modulation Interactive Patient Education 2019 [employer] Additional Information VACCINATE! IT SAVES LIVES! Members of the community who have not yet received the COVID-19 vaccine and would like to receive it can visit one of [facility] vaccine clinics. There are many vaccine clinic locations within the [facility]. For locations and available times, please visit [email or web address] It is important to note that some COVID mobile vaccine clinics are held outdoors and may be canceled in rainy or stormy conditions. To learn more about pediatric vaccinations (ages 5-11), we invite you to visit the [facility] webpage. https://[email or web address]/pages/4351-Uvjrr-Xbsnoncoohu-Sgbtivduba-Xpsvl-Ucm stions.htmlTo learn more about the COVID-19 vaccine, we invite you to visit the CDC website for a list of frequently asked questions. https://www.cdc.gov/coronavirus/2019-ncov/vaccines/faq.html [facility] Patient Portal Access Instructions: Stay connected with your healthcare team and access your personal medical information anytime with the [facility] Patient Portal.If you would like a full copy of your medical records, please contact the [facility] Medical Records Department, Friday through Friday between 8a.m. and 4:30p.m. Please follow the directions below to access the portal: 1.Access the email account you provided upon registration to [facility].2.Look for an invitation email from [facility].3.Open the email and access the invitation link: Accept Invitation to [facility]4.Fill in the required vaca to create your account. Sign into www.[employer] with your username and password that you [...] you will allow to register on the [facility] Patient Portal for access to your information. You can also access the [facility] Patient Portal on the [employer] herb. Simply click on Health Records under [employer] and then click on the [employer] logo. HOW TO SAFELY DISPOSE OF PRESCRIPTION [...] Call your local pharmacy or go to http://bit.[email or web address]/[email or web address] to find one close to you.3.Make use of household items: Use cat litter or old coffee grounds to dispose medications if other options arenot available. Mix your drugs with these household products, seal them in an airtight container andthrow it into the garbage. Call [facility]: [phone] to be sure your drugs can be [...] Sedation, Adult, Care After Esophagogastroduodenoscopy, Care After (58168) Medication Leaflets My discharge plan and instructions have been reviewed and explained to me and I,ANGI JACKSON understand my current condition and have read and understand these discharge instructions. I have received a written copy of the plan/instructions. If I have questions, I am aware that I should contact my doctor. Patient/Senior Net Developer Signature: Date/Time: Relationship to Patient: Witness Name/Signature: Date/Time: [facility]02-20-2023 Note BRUSH ADMISSION HISTORY AND PHYSICIAL CHIEF COMPLAINT: HISTORY OF PRESENT ILLNESS: REVIEW OF SYSTEMS: ACTIVE PROBLEMS: (23) Alcoholism (05662410) Anxiety depression (728571639) Atrial fibrillation (30446266) Back pain (512076505) BPH - benign prostatic hyperplasia (2114683645) Catheter, device, per self; per urologist (4251674313) COPD with chronic bronchitis (565083251) Elevated liver enzymes (6128933762) Enlarged prostate (087793818) Erectile dysfunction (2827570777) GERD (gastroesophageal reflux disease) (851928038) Hepatitis (605789313) Hiatal hernia (217837796) Hyperlipidemia (02502331) Hypertension (83777920) Kidney stone (818798097) Lightheadedness (6181160837) Osteoarthritis (2880230426) Palpitations (960291910) 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 (4131972047) Sleep apnea (712308019) Squamous cell carcinoma (14252549) Tobacco use (0565782786) MEDICATIONS: Active Inpt Meds: celecoxib (CeleBREX) Start: [...] FAMILY HISTORY: SOCIAL HISTORY: PHYSICAL EXAM: VITALS: ZeaiylZaxyYLTmwgcOMGtA2EJZ5IbyeDs(kg) 07/15 09:45----66--78.8--07/15 80.0 07/15 09:40----55------ 07/15 08:3436.5--2180287TJ 24 Hr Tmax: 36.5 at 07/15 08:34 [...] PATO WEST MD on 07/15/2022 09:51 AM [facility]02-20-2023 Anesthesiology Consult note Patient: ANGI JACKSON Age: 72 years Sex: Male : 1950 Associated Diagnoses: None Author: PRIYA ETIENNE Assessment Postanesthesia assessment Vitals: Vital signs from [...] by PRIYA ETIENNE on 07/15/2022 09:51 AM [facility]02-20-2023 Anesthesiology Consult note Patient: ANGI JACKSON [...] Problem list: Medical Alcoholism / SNOMED CT 27119885 / Confirmed Anxiety depression / SNOMED CT 451219933 / Confirmed Atrial fibrillation / SNOMED CT 13892037 / Confirmed Back pain / SNOMED CT 313066604 / Confirmed BPH - benign prostatic hyperplasia / SNOMED CT 9480118105 / Confirmed Catheter, device, per self; per urologist / SNOMED CT 2667689295 / Confirmed Elevated liver enzymes / SNOMED CT 8025773245 / Confirmed COPD with chronic bronchitis / SNOMED CT 449350431 / Confirmed Erectile dysfunction / SNOMED CT 8890491432 / Confirmed GERD (gastroesophageal reflux disease) / SNOMED CT 165663803 / Confirmed Hiatal hernia / SNOMED CT 827219823 / Confirmed Hyperlipidemia / SNOMED CT 64957786 / Confirmed Hypertension / SNOMED CT 34944081 / Confirmed Hepatitis / SNOMED CT 704265958 / Confirmed Kidney stone / SNOMED CT 458601236 / Confirmed Enlarged prostate / SNOMED CT 683447612 / Confirmed Lightheadedness / SNOMED CT 1947723543 / Confirmed Osteoarthritis / SNOMED CT 3708449302 / Confirmed Palpitations / SNOMED CT 821194567 / Confirmed 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 / SNOMED CT 7871927431 / Confirmed Sleep apnea / SNOMED CT 578983358 / Confirmed Squamous cell carcinoma / SNOMED CT 32809516 / Confirmed, Active Problems (23) Alcoholism Anxiety [...] use Histories Past Medical History: Active Hypertension (08607799) Sleep apnea (735795539) Comments: 08/18/2017 EDT 13:48 EDT - Khalida Thomas RN HAS CPAP, DOES NOT USE GERD (gastroesophageal reflux disease) (207838767) Hiatal hernia (976892960) Hepatitis (947685159) Comments: 08/18/2017 EDT 13:51 Khalida Gallo RN PT UNSURE WHICH TYPE Kidney stone (144501639) Comments: 08/18/2017 EDT 13:52 Khalida Gallo RN HISTORY OF Enlarged prostate (216157678) Osteoarthritis (2420596271) Family History: Cancer Brother Comments: 12/24/2018 12:02 Charu Boogie CREDIT RISK ANALYST prostate Rheumatoid arthritis Daughter Hypothyroidism Daughter Alcohol abuse Father Stroke Father Cancer Mother Heart disease Father Brother Procedure history: Arthroplasty of the hip (900223575) on 02/10/2018 at 67 Years. Comments: 02/10/2018 9:50 Cristina Johns RN RIGHT ANTERIOR HIP REPLACEMENT Total replacement of left hip joint (440764070951616) on 08/26/2017 at 67 Years. Cholecystectomy (47833727). Comments: 08/18/2017 13:52 DANIELE Gallo 1991S Colonoscopy (686412836). Dilation of urethra (43037691). Cataract (614361940). Comments: 02/10/2018 5:49 DANIELE Gallo REBECCA Tonsillectomy (570745286). Social History Social & Psychosocial Habits Alcohol [...] Admission Weight 80 kg Weight Method Stated [place] Body Weight 75.26 kg BSA Admission 2 [...] available , Lab results 07/15/2022 9:39 EST [place] History and Physical 07/15/2022 9:38 EST SN [...] Surgeon SN - CAt - Role Performed PROCEDURAL NURSE SN - CAt - Role Performed Pasting Machine Offbearer SN - CAt - Role Performed Associate Account Executive 1 07/15/2022 9:04 EST Progress Note-Nurse PRE-OP [...] Admission Weight 80 kg Weight Method Stated [place] Body Weight 75.26 kg BSA Admission 2 [...] All Quadrants Present Status N/A Skin Description [place], Normal for ethnicity Skin Integrity Intact IV [...] Weeks No Weight Loss No Allergies Yes Curriculum Director On Yes Consent Form Signed Yes Patient Dressed In Hospital gown Pre-op Preparation Glasses removed History & Physical Update On Chart Yes History & Physical On Chart Yes Obstructive Sleep Apnea Assess Completed Yes Barriers to Learning None evident Teaching Method Explanation Preferred Written Language [place] Preferred Spoken Language [place] Information Given by Patient Patient's Current Physicians [...] Note-Nursing Procedure/Therapy Intake . Assessment and Plan [place] [employer] Anesthesiologists (ASA) physical status classification: Class III. Anesthetic Preoperative Plan Anesthetic technique: MAC. Informed consent: signed by patient. Digitally Signed by PRIYA ETIENNE on 07/15/2022 09:43 AM [facility]02-20-2023 Note BRUSH ADMISSION HISTORY AND PHYSICIAL CHIEF COMPLAINT: HISTORY OF PRESENT ILLNESS: REVIEW OF SYSTEMS: ACTIVE PROBLEMS: (23) Alcoholism (10387757) Anxiety depression (911697655) Atrial fibrillation (15458774) Back pain (387530207) BPH - benign prostatic hyperplasia (1795817009) Catheter, device, per self; per urologist (4283083054) COPD with chronic bronchitis (372399419) Elevated liver enzymes (5464090584) Enlarged prostate (043116518) Erectile dysfunction (7461690034) GERD (gastroesophageal reflux disease) (764605621) Hepatitis (301956135) Hiatal hernia (103002184) Hyperlipidemia (89259070) Hypertension (55763320) Kidney stone (747095244) Lightheadedness (6873832692) Osteoarthritis (9043636816) Palpitations (493542653) 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 Pt aware of the risks and chooses to go throughwill procedure today. Digitally Signed by Sonam Lua RN on 07/15/2022 09:06 AM [facility]01-27-2023 Note ORIGINAL EXAMINATION: ESOPHAGRAM/BA SWALLOW06/21/2022 8:54 [...] Sign Date: 06/21/2022 9:19:29 AM Ordering Provider: [facility]01-27-2023 Note ORIGINAL EXAMINATION: ESOPHAGRAM/BA SWALLOW06/21/2022 8:54 am [...] Sign Date: 06/21/2022 9:19:29 AM [facility]ments Appointment Date:08/20/2021 08:50:00 AM Scheduled Provider:ILENE ANDERSON Location:[facility] Appointment Type:PC OV Future Scheduled Tests Laboratory* Complete Blood Count 02/19/21 * Lipid Profile 02/19/21 * Complete Metabolic Panel 02/19/21 Radiology* US Abdomen Limited 04/11/21 [facility] Evaluation + Plan note Future Appointments Appointment Date:08/20/2021 08:50:00 AM Scheduled Provider:ILENE ANDERSON Location:[facility] Appointment Type:PC OV Future Scheduled Tests Laboratory* Complete Blood Count 02/19/21 * Lipid Profile 02/19/21 * Complete Metabolic Panel 02/19/21 [facility] Evaluation + Plan note Future Appointments Appointment Date:07/26/2021 10:00:00 AM Scheduled Provider: Location:[facility] Appointment Type:PT Treatment - [place] Appointment Date:08/07/2021 09:00:00 AM Scheduled Provider: Location:[facility] Appointment Type:ACC POC Established Patient Appointment Date:08/20/2021 08:50:00 AM Scheduled Provider:ILENE ANDERSON Location:[facility] Appointment Type:PC OV Future Scheduled Tests Laboratory* Complete Blood Count 02/19/21 * Lipid Profile 02/19/21 * Complete Metabolic Panel 02/19/21 Radiology* XR Chest 2 Views (PA & Lateral) 07/24/21 [facility] Evaluation + Plan note Future Appointments Appointment Date:08/29/2021 10:30:00 AM Scheduled Provider: Location:[facility] Appointment Type:PT Treatment - [place] Appointment Date:09/04/2021 08:30:00 AM Scheduled Provider: Location:[facility] Appointment Type:ACC POC Established Patient Appointment Date:02/11/2022 08:50:00 AM Scheduled Provider:ILENE ANDERSON Location:[facility] Appointment Type:PC OV Future Scheduled Tests Laboratory* Complete Blood Count 02/19/21 * Lipid Profile 02/19/21 * Complete Metabolic Panel 02/19/21 Radiology* XR Chest 2 Views (PA & Lateral) 07/24/21 [facility] Evaluation + Plan note Future Appointments Appointment Date:09/18/2022 11:30:00 AM Scheduled Provider:MARCOS HARPER Location:[facility] Appointment Type:PC OV Future Scheduled Tests Laboratory* Complete Blood Count 03/04/22 * Lipid Profile 03/04/22 * Complete Metabolic Panel 03/04/22 Radiology* XR Chest 2 Views (PA & Lateral) 07/24/21 [facility] Evaluation + Plan note Future Appointments Appointment Date:08/27/2022 11:00:00 AM Scheduled Provider:MARCOS HARPER Location:[facility] Appointment Type:PC OV Appointment Date:09/06/2022 10:00:00 AM Scheduled Provider: Location:[facility] Appointment Type:ACC POC Established Patient Appointment Date:09/18/2022 11:30:00 AM Scheduled Provider:MARCOS HARPER Location:[facility] Appointment Type:PC OV Future Scheduled Tests Laboratory* Complete Blood Count 03/04/22 * Lipid Profile 03/04/22 * Complete Metabolic Panel 03/04/22 [facility] Evaluation + Plan note Future Appointments Appointment Date:09/06/2022 10:00:00 AM Scheduled Provider: Location:[facility] Appointment Type:ACC POC Established Patient Appointment Date:10/10/2022 10:30:00 AM Scheduled Provider:MARCOS HARPER Location:[facility] Appointment Type:PC OV Future Scheduled Tests Laboratory* Complete Blood Count 03/04/22 * Lipid Profile 03/04/22 * Complete Metabolic Panel 03/04/22 [facility] evaluation + Plan note Future Appointments Appointment Date:10/07/2023 09:30:00 AM Scheduled Provider: Location:[facility] Appointment Type:PT Treatment [facility] Appointment Date:10/09/2023 11:30:00 AM Scheduled Provider: Location:[facility]:10/14/2023 10:30:00 AM Scheduled Provider: Location:[facility] Appointment Type:PT Treatment [facility] Appointment Date:10/16/2023 10:30:00 AM Scheduled Provider: Location:[facility]:10/21/2023 10:30:00 AM Scheduled Provider: Location:[facility] Appointment Type:PT [place] [facility] [place] Appointment Date:10/23/2023 10:30:00 AM Scheduled Provider: Location:[facility]:10/28/2023 10:30:00 AM Scheduled Provider: Location:[facility]:11/13/2023 09:30:00 AM Scheduled Provider: Location:[facility] Appointment Type:ACC POC Established Patient Appointment Date:03/10/2024 10:30:00 AM Scheduled Provider:MARCOS HARPER Location:[facility] Appointment Type:PC OV Future Scheduled Tests Laboratory* Prostate Specific Antigen 09/09/23 * Thyroid Stimulating Hormone 09/09/23 * A1C Hemoglobin 09/09/23 * Complete Blood Count 10/10/22 * Complete Blood Count 09/09/23 * Lipid Profile 09/09/23 * Vitamin D Level 09/09/23 * Complete Metabolic Panel 10/10/22 * Complete Metabolic Panel 09/09/23 [facility] Evaluation + Plan note Future Appointments Appointment Date:10/30/2023 11:30:00 AM Scheduled Provider: Location:[facility] Appointment Type:CT Chest w/o Contrast Appointment Date:11/04/2023 11:30:00 AM Scheduled Provider: Location:[facility] Appointment Type:CT Abdomen and Pelvis w/ Contrast Appointment Date:11/13/2023 09:30:00 AM Scheduled Provider: Location:[facility] Appointment Type:ACC POC Established Patient Appointment Date:03/10/2024 10:30:00 AM Scheduled Provider:MARCOS HARPER Location:[facility] Appointment Type:PC OV Future Scheduled Tests Laboratory* Prostate Specific Antigen 09/09/23 * Thyroid Stimulating Hormone 09/09/23 * A1C Hemoglobin 09/09/23 * Complete Blood Count 09/09/23 * Lipid Profile 09/09/23 * Vitamin D Level 09/09/23 * Complete Metabolic Panel 09/09/23 Radiology* CT Thorax w/o Contrast 10/30/23 * CT Abdomen and Pelvis w/ contrast 11/04/23 [facility] Evaluation + Plan note Future Appointments Appointment Date:11/04/2023 03:45:00 AM Scheduled Provider: Location:[facility] Appointment Type:CT Abdomen and Pelvis w/ Contrast Appointment Date:11/13/2023 09:30:00 AM Scheduled Provider: Location:[facility] Appointment Type:ACC POC Established Patient Appointment Date:03/10/2024 10:30:00 AM Scheduled Provider:MARCOS HARPER Location:[facility] Appointment Type:PC OV Future Scheduled Tests Laboratory* Prostate Specific Antigen 09/09/23 * Thyroid Stimulating Hormone 09/09/23 * A1C Hemoglobin 09/09/23 * Complete Blood Count 09/09/23 * Lipid Profile 09/09/23 * Vitamin D Level 09/09/23 * Complete Metabolic Panel 09/09/23 Radiology* CT Abdomen and Pelvis w/ contrast 11/04/23 [facility] Evaluation + Plan note Future Appointments Appointment Date:01/05/2024 10:00:00 AM Scheduled Provider: Location:[facility] Appointment Type:ACC POC Established Patient Appointment Date:03/10/2024 10:30:00 AM Scheduled Provider:MARCOS HARPER Location:[facility] Appointment Type:PC OV Future Scheduled Tests Laboratory* Prostate Specific Antigen 09/09/23 * Thyroid Stimulating Hormone 09/09/23 * A1C Hemoglobin 09/09/23 * Complete Blood Count 09/09/23 * Lipid Profile 09/09/23 * Vitamin D Level 09/09/23 * Complete Metabolic Panel 09/09/23 Radiology* CT Abdomen and Pelvis w/ contrast 11/04/23 [facility] Evaluation + Plan note Future Appointments Appointment Date:01/30/2024 10:00:00 AM Scheduled Provider: Location:[facility] Appointment Type:ACC POC Established Patient Appointment Date:02/03/2024 01:00:00 PM Scheduled Provider: Location:[facility] Appointment Type:CT Abdomen and Pelvis w/ Contrast Appointment Date:02/03/2024 01:30:00 PM Scheduled Provider: Location:[facility] Appointment Type:CT Chest w/ Contrast Appointment Date:03/10/2024 10:30:00 AM Scheduled Provider:MARCOS HARPER Location:[facility] Appointment Type:PC OV Future Scheduled Tests Laboratory* Prostate Specific Antigen 09/09/23 * Thyroid Stimulating Hormone 09/09/23 * A1C Hemoglobin 09/09/23 * Complete Blood Count 09/09/23 * Lipid Profile 09/09/23 * Vitamin D Level 09/09/23 * Complete Metabolic Panel 09/09/23 Radiology* CT Thorax w/ Contrast 02/03/24 * CT Abdomen and Pelvis w/ contrast 02/03/24 [facility] Evaluation + Plan note Future Appointments Appointment Date:02/20/2024 10:30:00 AM Scheduled Provider: Location:[facility] Appointment Type:ACC POC Established Patient Appointment Date:03/10/2024 10:30:00 AM Scheduled Provider:MARCOS HARPER Location:[facility] Appointment Type:PC OV Future Scheduled Tests Laboratory* Prostate Specific Antigen 09/09/23 * Thyroid Stimulating Hormone 09/09/23 * A1C Hemoglobin 09/09/23 * Complete Blood Count 09/09/23 * Lipid Profile 09/09/23 * Vitamin D Level 09/09/23 * Complete Metabolic Panel 09/09/23 [facility] Evaluation noteNo assessment information available [facility] Work Phone: Evaluation note* Diagnosis Onset Date Resolution Status Chest pain acute Dyspnea acute Essential (primary) hypertension chronic Hyperlipidemia chronic Longstanding persistent atrial fibrillation chronic [facility] Work Phone: Hospital course Narrative No data available for this section [facility] Hospital Discharge instructions No data available for this section [facility] Hospital Discharge instructionsAmbulatory Orders* Phase II, Outpatient Cardiac Rehab Location: [facility] Work Phone: Progress note No data available for this section [facility] Reason for referral (narrative)No reason for referral [facility] Work [facility]: Summary Purpose Family History No Family History Records Found Relationship Condition Age at Onset Recorded Date/T daniel father Cardiac disease Unknown Hypertension Unknown Cerebrovascular accident (CVA) Unknown mother Hypertension Unknown Malignant neoplasm of breast Unknown Advance Directives No Advanced Directives Records Found Advance Directive Response Recorded Date/ Time Advance Directives No June 20, 2020 8:23am Living Will No August 09, 2020 6:03pm Power of News Assignment Editor No August 09 6:03pm Advance Directive Response Recorded Date/ Time Advance Directives No June 20, 2020 8:23am Advance Directive Response Recorded Date/ Time Advance Directives on File Yes November 29, 2024 9:47am Living Will Yes November 29, 2024 9 :47am Do you have a Healthcare Power of News Assignment Editor? No November 29, 2024 12:22pm Name of Medical Power of News Assignment Editor Jenny Bonds November 29, 2024 9:47am Advance Directives Yes November 29 9:47am Advance Directive Response Recorded Date/ Time Living Will No August 09, 2020 6:03pm Do you have a Healthcare Power of News Assignment Editor? No August 09, 2020 6:03pm Advance Directives on File Yes November 29, 2024 9:47am Living Will Yes November 29, 2024 9 :47am Do you have a Healthcare Power of News Assignment Editor? No November 29, 2024 12:22pm Name of Medical Power of News Assignment Editor Jennyluis alberto Velaw November 29, 2024 9:47am Advance Directives Yes [...] 2024 10:02am Atherosclerotic heart diseas e of [place] coronary artery without angina pectoris August 20, [...] 2024 10:02am Atherosclerotic heart diseas e of [place] coronary artery without angina pectoris August 20, [...] 2024 11:05am Atherosclerotic heart diseas e of [place] coronary artery without angina pectoris September 17, [...] 2024 10:02am Atherosclerotic heart diseas e of [place] coronary artery without angina pectoris August 20, [...] 2024 11:05am Atherosclerotic heart diseas e of [place] coronary artery without angina pectoris September 17, [...] 2024 11:09am Atherosclerotic heart diseas e of [place] coronary artery without angina pectoris November 05, [...] 2024 11:0 9am 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 November 29, 2024 9:18am 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 November 29, 2024 12:21pm 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 November 29, 2024 3:23pm 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..] 2024 11:0 9am 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 November 29, 2024 12:21pm 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 November 29, 2024 2:58pm 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 November 29, 2024 3:23pm 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 November 30, 2024 7:01am 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 November 30, 2024 2:08pm 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 December 01, 2024 7:09am 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..] 2024 11:0 9am 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 November 29, 2024 12:21pm 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 November 29, 2024 2:58pm 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 November 29, 2024 3:23pm 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 November 30, 2024 7:01am 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 November 30, 2024 2:08pm 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 December 01, 2024 7:09am 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 December 01, 2024 7:25am Amb Documentation December 03, 2024 3:38 pm Cerebral infarction, unspecified December 082024 3:56pm Reason for Visit Admit Date Chest pain August 20, 2024 10: 02am CHF (congestive heart failure) July 10:02am Dyspnea August 20, 2024 10: 02am PVCs (premature ventricular contractions ) August 20, 2024 10:02am Atherosclerotic heart diseas e of [place] coronary artery without angina pectoris August 20, [...] 2024 11:05am Atherosclerotic heart diseas e of [place] coronary artery without angina pectoris September 17, [...] 2024 11:09am Atherosclerotic heart diseas e of [place] coronary artery without angina pectoris November 05, [...] 2024 11:0 9am 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 November 29, 2024 12:21pm 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 November 29, 2024 2:58pm 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 November 29, 2024 3:23pm 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 November 30, 2024 7:01am 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 November 30, 2024 2:08pm 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 December 01, 2024 7:09am 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 December 01, 2024 7:25am Amb Documentation December 03, 2024 3:38 pm Cerebral infarction, unspecified December 082024 3:56pm COPD December 16, 2024 1:11 pm 1 Y FU December 16, 2024 1:34 pm Chief Complaint Admit Date UNSPECIFIED ATRIAL FIBRILLATION August 11:33am UNSPECIFIED ATRIAL FIBRILLATION August 12:03pm 4 W FU September 17, 2024 11: 05am E-ORDER September 30, 2024 12:03p m 8 W FU November 05, 2024 11:0 9am 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 November 29, 2024 12:21pm 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 November 29, 2024 2:58pm 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 November 29, 2024 3:23pm 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 November 30, 2024 7:01am 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 November 30, 2024 2:08pm 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 December 01, 2024 7:09am 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 December 01, 2024 7:25am Amb Documentation December 03, 2024 3:38 pm Cerebral infarction, unspecified December 082024 3:56pm COPD December 16, 2024 1:11 pm 1 Y FU December 16, 2024 1:34 pm Reason for Visit Admit Date Chest pain September 17, 2024 11: 05am CHF (congestive heart failure) August 11:05am Dyspnea September 17, 2024 11: 05am PVCs (premature ventricular contractions ) September 17, 2024 11:05am Atherosclerotic heart diseas e of [place] coronary artery without angina pectoris September 17, [...] 2024 11:09am Atherosclerotic heart diseas e of [place] coronary artery without angina pectoris November 05, [...] coronary artery November 29, 2024 2 :58pm PVCs (premature ventricular contractions ) December 16, 2024 1:34pm Atherosclerotic heart diseas e of [place] coronary artery without angina pectoris December 16, 2024 1:34pm History of CVA (cerebrovascular accident ) December 16, 2024 1:34pm Essential (primary) hypertension December 162024 1:34pm Hyperlipidemia December 16, 2024 1:34 pm Longstanding persistent atrial fibrillat ion December 16, 2024 1:34pm Additional Source Comments (unrecognized sect ion and content) No Status Records FoundNo Status Records FoundNo Status Records FoundNo Status Records Found INFORMATION SOURCE (unrecogn ized section and content) DATE CREATED AUTHOR 11/19/2017 [facility] DATE CREATED AUTHOR AUTHOR'S ORGANIZ ATION 01/28/2024 [facility] ([place]) DATE CREATED AUTHOR AUTHOR'S ORGANIZ ATION 09/12/2024 [facility] DATE CREATED AUTHOR AUTHOR'S ORGANIZ ATION 12/26/2024 [facility] Care Team (unrecognized sect ion and content) Team Status: Active Member Role Status Dates Rosalie Scott TRAVEL PT, TRAVEL PT-C Family Provider Active Marcos Harper TRAVEL PT, TRAVEL PT-C Primary Care Provider Active Team Status: Inactive Member Role Status Dates Ilene Anderson TRAVEL PT, TRAVEL PT-C Referring Provider Active Dr. Fco Aguilera MD Attending Provider Active Marcos Harper TRAVEL PT, TRAVEL PT-C Primary Care Provider Active Team Status: Active Member Role Status Dates Marcos Harper NP, TRAVEL PT-C Primary Care Provider Active Dr. Fco Aguilera MD Attending Provider Active Team Status: Inactive Member Role Status Dates Marcos Harper NP, TRAVEL PT-C Primary Care Provider Active Dr. Fco Aguilera MD Attending Provider, Referring Pro vider Active Team Status: Active Member Role Status Dates Dr. Jovany Brush MD Primary Care Provider Active Team Status: Inactive Member Role Status Dates Marcos Harper TRAVEL PT, TRAVEL PT-C Primary Care Provider Active Start: August 20, 2024 End: August 20, 2024 Marcos Harper TRAVEL PT, TRAVEL PT-C Referring Provider Active S tart: August 20, 2024 End: August 20, 2024 MAURO Ramos Attending Provider Active St art: August 20, 2024 End: August 20, 2024 Team Status: Inactive Member Role Status Dates Marcos Harper NP, TRAVEL PT-C Primary Care Provider Active Start: August 20, [...] Inactive Member Role Status Dates Marcos Harper TRAVEL PT, TRAVEL PT-C Referring Provider Active S tart: September 17, [...] Inactive Member Role/Relationship Status Dates Marcos Harper TRAVEL PT, TRAVEL PT-C Primary Care Provider Active Start: August 20, 2024 End: August 20, 2024 Marcos Harper NP, TRAVEL PT-C Referring Provider Active S tart: August 20, 2024 End: August 20, 2024 MAURO Ramos Attending Provider Active St art: August 20, 2024 End: August 20, 2024 Team Status: Inactive Member Role/Relationship Status Dates Marcos Harper TRAVEL PT, TRAVEL PT-C Primary Care Provider Active Start: August 20, [...] Inactive Member Role/Relationship Status Dates Marcos Harper TRAVEL PT, TRAVEL PT-C Referring Provider Active S tart: September 17, [...] Inactive Member Role/Relationship Status Dates Marcos Harper TRAVEL PT, TRAVEL PT-C Referring Provider Active S tart: December 16, 2024 End: December 16, 2024 Dr. Fco Aguilera MD Attending Provider Active S tart: December 16, 2024 End: December 16, 2024 Dr. Jovany Brush MD Primary Care Provider Active Start: December 16, 2024 End: December 16, 2024 Team Status: Inactive Member [...] Inactive Member Role/Relationship Status Dates Marcos Harper TRAVEL PT, TRAVEL PT-C Referring Provider Active S tart: September 17, [...] 29, 2024 End: December 01, 2024 Dr. Margarita Levy MD Other Provider [...] Provider Active Start: December 01, 2024 Dr. Foc Aguilera MD Other Provider Active Start : [...] 2024 End: December 08, 2024 Team Status: Inactive Member Role/Relationship Status Dates Dr. Jovany Brush MD Primary Care Provider Active Start: December 16, 2024 End: December 16, 2024 Dr. Breanne Mejia MD Attending Provider Active Start: December 16, 2024 End: December 16, 2024 Dr. Breanne Mejia MD Referring Provider Active Start: December 16, 2024 End: December 16, 2024 Team Status: Inactive Member Role/Relationship Status Dates Marcos Harper TRAVEL PT, TRAVEL PT-C Referring Provider Active S tart: December 16, [...] and content) Care Team Personnel Name: MARCOS HARPERVISCOSE CELLAR CHARGE HAND Position: P4 Advanced Practice Nurse Member Role: Primary Care Physician Address: Address: [address] [place] [address]- Name: Rashaad Hidalgo Clerlyn Chung PT Position: P3 Scheduling - Ear Specialist Advanced Member Role: Other Name: PATO WEST MD Position: Physician Member Role: Monotype Mechanic Address: Address: [address] [place] [address]- [place] Name: FCO AGUILERA MD Member Role: Mechanic Driver Address: Address: [address] [place] [address]- [place] Name: BREANNE MEJIA MD Position: Physician Member Role: Supervisor Sewer System Address: Address: [address] [place] [address]- [place] Care Team Related Persons Name: JENNY BONDS Address: [facility] Care Team Personnel Name: MARCOS HARPER APRN-VISCOSE CELLAR CHARGE HAND Position: P4 Advanced Practice Nurse Member Role: Primary Care Physician Address: Address: [address] [place] [address]- Name: Rashaad Hidalgo Clerk Juliet PT Position: P3 Scheduling - Ear Specialist Advanced Member Role: Other Name: PATO WEST MD Position: Physician Member Role: Monotype Mechanic Address: Address: [address] [place] [id number]- Name: FCO AGUILERA MD Member Role: Mechanic Driver Address: Address: [address] [facility] [address] [place] [id number]- Name: BREANNE MEJIA MD Position: Physician Member Role: Supervisor Sewer System Address: Address: [address] [facility] [place] [address]- Care Team Related Persons Name: JENNY BONDS Address: [facility] FOR RECORDS PERTAINING TO PATIENTS WHO ARE [...] BE BASED ON THE PRIMARY CLINICAL RECORDS. [employer] provides no warranty or guarantee of the accuracy or completeness of information in this document.
[2024-12-28 20:55] LABS: Differential Comment SCANNED
[2024-12-28 20:56] LABS: Anisocytosis 2+
[2024-12-30 04:07] LABS: Myoglobin, Serum 53 ng/mL (28-72)
== END | disposition home or self-care (01) ==
PROVIDERS: PCP Family Medicine Geriatric Medicine; Referring Provider Family Medicine Geriatric Medicine; Visit Provider Family Medicine Geriatric Medicine
DX: R06.02 Shortness of breath (principal); R07.9 Chest pain, unspecified; R68.83 Chills (without fever)
CPT/HCPCS: 36415; 71046; 80053; 82550; 83874; 83880; 84484; 85025; 85379; 87631

== ENCOUNTER → 2024-12-30 | Outpatient (CLI) | payer MEDICARE, SELFPAY ==
--- NOTE | 2024-12-30 08:27 | CT_ITS ---
PROCEDURE: CTA HEAD AND NECK W/ CONTRAST 12/30/2024 REASON FOR EXAM: ISCHEMIC STROKE TECHNIQUE: CTA HEAD AND NECK W/ CONTRAST Multiplanar Sagittal and Coronal images were obtained. 3D post processing was performed One or more dose reduction techniques were used (e.g., Automated exposure control, adjustment of the mA and/or kV according to patient size, use of iterative reconstruction technique). CTA HEAD AND NECK W/ CONTRAST Multiplanar Sagittal and Coronal images were obtained. 3D post processing was performed CONTRAST: Isovue 370 VOLUME: 100 mL RADIATION DOSE SUMMARY: CTDlvol: 26.3 mGy DLP: 1596.76 mGycm COMPARISON: None FINDINGS: Aortic Arch: Normal size and branching pattern. Mild atherosclerotic plaque. Brachiocephalic and Subclavians: Mild atherosclerotic plaque without significant stenosis. RIGHT Carotid: Right CCA: Mild calcified and soft plaque. Right ICA: Moderate calcified and soft plaque. Maximum stenosis (NASCET): 70 % Right ECA: Unremarkable. LEFT Carotid: Left CCA: Mild calcified and soft plaque. Left ICA: Moderate calcified and soft plaque. Maximum stenosis (NASCET): Near occlusion % Left ECA: Unremarkable. Vertebrals: Codominant. Arise from the subclavians. Both vertebrals form the basilar. RIGHT Vertebral: Unremarkable. LEFT Vertebral: Unremarkable. Anatomy: [place] anatomy is normal. Aneurysm or avm: No intracranial aneurysms or large vascular malformations are identified. Anterior cerebral arteries: Narrowing of the right A1 artery. Middle cerebral arteries: Unremarkable. Basilar artery: Unremarkable. Posterior cerebral arteries: Unremarkable. Other major branches of the posterior circulation: Unremarkable. Major venous structures: Unremarkable. Other findings: Neck: Lungs: Bones: Unenhanced images of the brain were obtained. There is evidence of cerebral atrophy. No focal abnormality is seen. CT/CTA Head AND Neck W/ Contrast IMPRESSION: Subtotal occlusion at the origin of the left internal carotid artery. 70% narrowing at the origin of the left internal carotid artery. Reading Location: [id number]
--- NOTE | 2024-12-30 08:28 | CDU_ITS ---
Reason For Study Reason For Study: Ischemic stroke Rt. Velocities/BP Lt. Velocities/BP Prox CCA 57/8.8 cm/sec. Prox CCA 57.9/9.7 cm/sec. Mid CCA 62.6/7.8 cm/sec. Mid CCA 56/12.6 cm/sec. Dist CCA 57.9/10.7 cm/sec. Dist CCA 51.3/11.6 cm/sec. Prox ICA 44.7/11.6 cm/sec. Prox ICA 135.7/38.9 cm/sec. Mid ICA 60.7/12.6 cm/sec. Mid ICA 112/18.8 cm/sec. Dist ICA 83.4/18.2 cm/sec. Dist ICA 48.7/12.4 cm/sec. Rt. ICA/CCA = 1.33. Lt. ICA/CCA = 2.42. Prox ECA 88.1/7.8 cm/sec. Prox ECA 70.2/9.7 cm/sec. Rt. Vert. 40/4.1 cm/sec. Lt. Vert. 30/6.9 cm/sec. Right Extracranial There is heterogeneous, irregular atherosclerotic plaque noted in the right common carotid artery. There is heterogeneous, irregular atherosclerotic plaque noted in the right internal carotid artery. There is heterogeneous, irregular atherosclerotic plaque noted in the right external carotid artery. Antegrade flow is noted in the right vertebral artery. Left Extracranial There is heterogeneous, irregular atherosclerotic plaque noted in the left common carotid artery. There is heterogeneous, irregular atherosclerotic plaque noted in the left internal carotid artery. There is heterogeneous, irregular atherosclerotic plaque noted in the left external carotid artery. Antegrade flow is noted in the left vertebral artery. Procedure Carotid Duplex [id number]. This is a Carotid Duplex examination using B-mode, color flow and specral Doppler. Exam performed in department. VL/Carotid Duplex Ultrasound Interpretation Summary Mild (<50%) stenosis right extracranial internal carotid. Moderate (50-69%) stenosis left extracranial internal carotid. Patent and antegrade vertebrals bilaterally. Ordering Physician: Jovany Brush Chi Referring Physician: Jovany Brush Chi Performed By: Marielos Kamara RVT
== END | disposition home or self-care (01) ==
LOC: CT 08:23
PROVIDERS: PCP Family Medicine Geriatric Medicine; Referring Provider Family Medicine Geriatric Medicine; Visit Provider Family Medicine Geriatric Medicine
DX: Z86.73 Personal history of transient ischemic attack (TIA), and cerebral infarction without residual deficits (principal)
CPT/HCPCS: 70496; 70498; 93880; Q9967

== ENCOUNTER → 2025-01-20 | Outpatient (CLI) | payer MEDICARE, SELFPAY ==
--- NOTE | 2025-01-20 10:38 | RAD_ITS ---
PROCEDURE: CHEST PA AND LATERAL 01/20/2025 REASON FOR EXAM: ATRIAL FIBRILLATION, LEFT CAROTID ARTERY STENOSIS TECHNIQUE: Three-view CHEST AP upright and wheelchair LATERAL COMPARISON: PA and lateral chest of 12/28/2024. RAD/Chest PA and Lateral IMPRESSION: The cardiomediastinal silhouette is stable, and without evidence of cardiomegal y. No significant pulmonary edema is noted. No focal infiltrate is seen. No pleural effusion or pneumothorax is seen No acute osseous process is noted. Reading Location: [place] [address]
[2025-01-20 11:11] LABS: Hematocrit 43.5 % (40-54); Hemoglobin 12.8 g/dL (13.0-16.5); Immature Granulocytes Count 0.060 X10^3/uL (0.0-0.0); Mean Corp Hgb Conc 29.4 g/dL (32-36); Mean Corpuscular Volume 75.5 fL (80-94); Mean Platelet Vol. 9.2 fl (6.2-12.0); NRBC Flagged by Analyzer 0 % (0-5); POSITIVE MORPHOLOGY YES; Platelet Count 342 K/mm3 (150-450); RBC Distribution Width CV 20.6 % (11.6-14.6); RBC Distribution Width SD 53.5 fl (35.1-43.9); Red Blood Count 5.76 M/mm3 (4.6-6.2); White Blood Count 12.9 K/mm3 (4.4-11.0)
[2025-01-20 11:13] LABS: Differential Indicated SCAN CRITERIA MET
[2025-01-20 11:37] LABS: Anisocytosis 1+; Polychromasia 1+
[2025-01-20 12:13] LABS: AST(SGOT) 22 U/L (<=37); Alanine Aminotransfer ALT/SGPT 21 U/L (<=46); Albumin, Serum 3.9 g/dL (3.4-4.8); Alkaline Phosphatase 155 U/L (40-129); Anion Gap 13 (5-15); BUN 21 mg/dL (4-19); BUN/Creat Ratio 19.6 RATIO (10-20); CPK Total, Creatine Kinase 37 U/L (24-195); Calcium,Total 9.6 mg/dL (7.6-11.0); Carbon Dioxide 24.0 mmol/L (21.0-32.0); Chloride 99 mmol/L (98-108); Globulin 3.7 g/dL (2.2-4.2); Glucose 203 mg/dL (70-99); Potassium 4.8 mmol/L (3.3-5.1); Pro- Brain NATRIURETIC PEPTIDE 913 pg/mL (<=1800)
[2025-01-20 18:27] LABS: Xtra Tube Kwok EXTRA TUBE
[2025-01-21 08:09] LABS: Myoglobin, Serum 66 ng/mL (28-72)
== END | disposition home or self-care (01) ==
LOC: POLAB3 10:27
PROVIDERS: PCP Family Medicine Geriatric Medicine; Visit Provider Family Medicine Geriatric Medicine
DX: I10 Essential (primary) hypertension (principal); I48.91 Unspecified atrial fibrillation; I25.10 Atherosclerotic heart disease of native coronary artery without angina pectoris; I65.22 Occlusion and stenosis of left carotid artery
CPT/HCPCS: 36415; 71046; 80053; 82550; 83874; 83880; 84443; 85025

== ENCOUNTER → 2025-01-28 | Outpatient (CLI) | payer MEDICARE, SELFPAY ==
--- NOTE | 2025-01-28 08:50 | CT_ITS ---
PROCEDURE: BRAIN/HEAD WITHOUT CONTRAST 01/28/2025 REASON FOR EXAM: LIGHTHEADED, TIA TECHNIQUE: Procedure Code: CTBR Modality: CT Procedure: BRAIN/HEAD WITHOUT CONTRAST Coronal and Sagittal reconstruction series were provided. One or more dose reduction techniques were used (e.g., Automated exposure control, adjustment of the mA and/or kV according to patient size, use of iterative reconstruction technique. RADIATION DOSE SUMMARY: CTDlvol: 65 mGy DLP: 1195 mGycm COMPARISON: None. FINDINGS: Cerebrum: Mild loss ofcerebral volume. Negative for mass the frontal, parietal, temporal and occipital lobes otherwisenegative. White matter: Slight periventricular white matter changes. Cerebellum: Negative. Negative for mass. Negative for acute infarction. CSF pathways and ventricles: Negative. Negative for ventricular dilatation or obstruction. Basal ganglia and thalami: Negative. No acute infarctions. Brainstem: Midbrain, ishaan and medulla 23negative. Calvarium: Negative. Negative for fractures. Orbital structures: Cataract surgery. Extraocular muscles negative. Paranasal sinuses: No air fluid levels. Remainder of the sinuses negative. Vascular structures: Moderate calcifications of the distal intracranial internal carotid arteries. Soft tissues: Negative. Other: : Negative for acute intracranial hemorrhage. Negative for acute infarction. Remainder of exam negative. CT/Brain/Head without Contrast IMPRESSION: Negative for acute intracranial pathology. Reading Location: [id number]
== END | disposition home or self-care (01) ==
LOC: CT 08:48
PROVIDERS: PCP Family Medicine Geriatric Medicine; Referring Provider Family Medicine Geriatric Medicine; Visit Provider Family Medicine Geriatric Medicine
DX: R42 Dizziness and giddiness (principal)
CPT/HCPCS: 70450

== ENCOUNTER → 2025-03-08 | Outpatient (CLI) | payer MEDICARE, SELFPAY ==
[2025-03-08 14:19] LABS: Hematocrit 42.9 % (40-54); Hemoglobin 12.4 g/dL (13.0-16.5); Immature Granulocytes Count 0.080 X10^3/uL (0.0-0.0); Mean Corp Hgb Conc 28.9 g/dL (32-36); Mean Corpuscular Volume 74.4 fL (80-94); Mean Platelet Vol. 9.1 fl (6.2-12.0); NRBC Flagged by Analyzer 0 % (0-5); POSITIVE MORPHOLOGY YES; Platelet Count 437 K/mm3 (150-450); RBC Distribution Width CV 20.1 % (11.6-14.6); RBC Distribution Width SD 51.0 fl (35.1-43.9); Red Blood Count 5.77 M/mm3 (4.6-6.2); White Blood Count 11.7 K/mm3 (4.4-11.0)
[2025-03-08 14:22] LABS: Differential Indicated SCAN CRITERIA MET
[2025-03-08 14:44] LABS: Anisocytosis 1+
[2025-03-08 15:11] LABS: Very Low Density Lipoprotein 35 mg/dL (5-40); cholesterol:hdl ratio screen 3.26
[2025-03-08 16:42] LABS: AST(SGOT) 22 U/L (<=37); Alanine Aminotransfer ALT/SGPT 20 U/L (<=46); Albumin, Serum 4.0 g/dL (3.4-4.8); Alkaline Phosphatase 145 U/L (40-129); Anion Gap 12 (5-15); BUN 15 mg/dL (4-19); BUN/Creat Ratio 15.0 RATIO (10-20); Calcium,Total 9.2 mg/dL (7.6-11.0); Carbon Dioxide 27.0 mmol/L (21.0-32.0); Chloride 96 mmol/L (98-108); Cholesterol 112 mg/dL (<=200); Globulin 2.8 g/dL (2.2-4.2); Glucose 182 mg/dL (70-99); Low Density Lipoprotein Calc. 42 mg/dL; Potassium 3.9 mmol/L (3.3-5.1); Triglycerides 182 mg/dL; Vitamin D,25 Hydroxy 29.9 ng/mL (30-100)
[2025-03-08 22:06] LABS: Xtra Tube Kwok EXTRA TUBE
== END | disposition home or self-care (01) ==
LOC: POLAB3 14:05
PROVIDERS: PCP Family Medicine Geriatric Medicine; Visit Provider Family Medicine Geriatric Medicine
DX: E78.5 Hyperlipidemia, unspecified (principal); E55.9 Vitamin D deficiency, unspecified; E03.9 Hypothyroidism, unspecified; I10 Essential (primary) hypertension
CPT/HCPCS: 36415; 80053; 80061; 82306; 84443; 85025

== ENCOUNTER → 2025-03-18 | Outpatient (CLI) | payer MEDICARE, SELFPAY ==
[2025-03-18 15:25] LABS: Pro- Brain NATRIURETIC PEPTIDE 968 pg/mL (<=1800)
[2025-03-18 15:28] LABS: Anion Gap 10 (5-15); BUN 13 mg/dL (4-19); BUN/Creat Ratio 15.4 RATIO (10-20); Calcium,Total 9.5 mg/dL (7.6-11.0); Carbon Dioxide 26.1 mmol/L (21.0-32.0); Chloride 100 mmol/L (98-108); Glucose 136 mg/dL (70-99); Potassium 4.6 mmol/L (3.3-5.1)
== END | disposition home or self-care (01) ==
LOC: LAB 14:02
PROVIDERS: PCP Family Medicine Geriatric Medicine; Referring Provider Student in an Organized Health Care Education/Training Program; Visit Provider Student in an Organized Health Care Education/Training Program
DX: R60.9 Edema, unspecified (principal); I50.31 Acute diastolic (congestive) heart failure
CPT/HCPCS: 36415; 80048; 83880

== ENCOUNTER → 2025-05-24 | Outpatient (CLI) | payer MEDICARE, SELFPAY ==
--- NOTE | 2025-05-24 10:42 | RAD_ITS ---
PROCEDURE: KNEE 4 OR MORE VIEWS 05/24/2025 REASON FOR EXAM: LEFT KNEE PAIN TECHNIQUE: Procedure Code: RADKN Modality: DX Procedure: KNEE 4 OR MORE VIEWS FINDINGS: Well-positioned patella. No evidence of fracture. No evidence of joint effusion. No erosive or destructive process. Suggestion of chondrocalcinosis in both weight-bearing compartments. RAD/Knee 4 or More Views IMPRESSION: Suggestion of chondrocalcinosis in the weight-bearing compartments. Clinical c orrelation for pyrophosphate arthropathy is recommended. Otherwise unremarkable. Reading Location: [facility]
== END | disposition home or self-care (01) ==
LOC: RAD 10:42
PROVIDERS: PCP Family Medicine Geriatric Medicine; Referring Provider Family Medicine Geriatric Medicine; Visit Provider Family Medicine Geriatric Medicine
DX: M25.562 Pain in left knee (principal)
CPT/HCPCS: 73564